=== PATIENT | male | born 1930 | race Caucasian/White ===

== ENCOUNTER 2019-11-28 15:24 | Inpatient (IN) | payer OTHER ==
--- NOTE | 2019-12-01 16:11 | R.PREADM ---
SCREENING DATE AND TIME 11/30/2019 10:09 (CDT) ANTICIPATED REHAB ADMISSION DATE 12/02/2019 REFERRING FACILITY Doctor Office REFERRAL DATE AND TIME 11/28/2019 03:38 (CDT) REFERRAL ROOM# Home HOSPITALIZED IN LAST 60 DAYS? YES Was in [facility] from 11/01 to 11/22 for PE, Valve Stenosis, Respiratory Failure, Pne umonia and Sepsis Previous Rehabilitation(s): No. 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 Maxi Linares M.D. MR# [id number] [id number] NAME ARTHUR PARKER ADDRESS [address] [place] [address] PHONE [facility] [id number] DATE OF 1930 AGE 89 SSN# [id number] GENDER male MARITAL STATUS RACE white PREF. LANGUAGE (IF NON-MONTSERRATIAN) Canadian ADMIT FROM 01 - Home (private home/apt. board/care, assisted living, long-term, transitional living) PRE-HOSPITAL LIVING SETTING 01 - Home (private home/apt. board/care, assisted living, long-term, transitional living) HOME TYPE AND DETAILS Type of home: single family house # of levels in the residence: 0 # of steps to enter the residence: 1 # of steps within the residence: 0 PRE-HOSPITAL LIVING WITH Family/Relatives FAMILY SUPPORT Yes PRIMARY FAMILY CONTACT NAME Kailyn Parker PRIMARY FAMILY CONTACT PHONE PRIMARY FAMILY CONTACT RELATIONSHIP IS PRIMARY FAMILY CONTACT AUTH. REP.? no 1ST EMERGENCY CONTACT Kailyn Parker 1ST CONTACT PHONE 1ST CONTACT RELATIONSHIP IS 1ST CONTACT AUTH. REP.? no PHONE 2ND CONTACT ON ADM.? no PATIENT EMPLOYMENT STATUS Retired (for age) PATIENT EMPLOYER No Employer PAYOR INFORMATION: 1ST PAYOR NAME [place] Medicare 1ST PAYOR PHONE 1ST PAYOR AUTHORIZATION# [id number] 1ST PAYOR UPDATE DUE 12/07/2019 1ST PAYOR INJURY/ILLNESS DUE TO ACCIDENT? No ANOTHER GREEN PARTY RESPONSIBLE? No PRIMARY REHAB/ACUTE DIAGNOSIS: Aortic Stenosis, Acute Respiratory Failure ONSET DATE 11/02/2019 REHAB IMPAIRMENT CATEGORY (MARLENA): 14 Cardiac does NOT meet 60% rule PRIMARY DIAGNOSIS-RELATED SURGERIES: Patient had 2 Thoracentesis while in hospital and an Aortic valve replacement. SUMMARY OF ACUTE HOSPITALIZATION: Pt. is a 89 yo Right-handed white male. On 11/02/2019 he was admitted to [facility] in the [facility] with diagnosis Aortic Stenosis, Acute Respi ratory Failure. His impairment category is Cardiac 09 - Cardiac Disorders (09). Pre-morbidly, Pt. was independent/mod-I in Transfers Control, Self-Care, and Locomotion; and he had g ood Balance, Safety Awareness, Social Cognition, Communication, and Sphincter Control. Currently, he has deficits of Transfers Control, Balance, Locomotion, Safety Awareness, Self-Care, an d Social Cognition. Pt. is now referred to [facility] for acute in-patient rehabilitation in order to maximize patient's functional independence in activities of daily living, strength, ROM, and mobi lity. Patient has realistic goal of being discharged at assistance level 6-[place] to reside at Home with Fam omar/Relatives. PAST MEDICAL HISTORY HTN CVA Aortic Stenosis Cardiogenic shock (R57.0) Squamous Cell Carcinoma of Lung PAST SURGICAL HISTORY: Bronchoscopy x 2 MEDICATION ALLERGIES: Plavix ENVIRONMENTAL ALLERGIES: None Known - Substance Allergies None Known - Other Allergies None Known CODE STATUS: Full code WEIGHT/HEIGHT/BMI: WEIGHT 210 lbs HEIGHT 5' 8" BMI 31.9 DIET: - Diet Type Regular - Diet - Solid Texture Regular - Diet - Liquid Texture Regular - Tube Feed N/A REVIEW OF SYSTEMS: - Gen Alert and awake Lying in bed No apparent distress Oriented to: person, time, and place - Vital Signs Vital signs stable, afebrile - CVS RRR VITAL SIGNS Vital signs stable, afebrile MEDICATIONS/TREATMENT: Other- See attached MAR (Medication Administration Record). CURRENT SPHINCTER CONTROL: Pre-hospital bladder status: unspecified Pre-hospital bowel status: unspecified CURRENT LOCOMOTION STATUS: distance walked 40 feet DETAILED CURRENT FUNCTIONAL STATUS: - Walking score based on distance walked: 1(<=50ft) QI SCORES: - Self-Care A. Eating 06-Independent B. Oral hygiene 10-Not attempted due to environmental limitations C. Toileting hygiene 04-Supervision or touching assistance E. Shower/bathe self 01-Dependent F. Upper body dressing 04-Supervision or touching assistance G. Lower body dressing 03-Partial/moderate assistance H. Putting on/taking off footwear 88-Not attempted due to medical condition or safety concerns - Mobility A. Roll left and right 04-Supervision or touching assistance B. Sit to lying 04-Supervision or touching assistance C. Lying to sitting on side of bed 04-Supervision or touching assistance D. Sit to stand 04-Supervision or touching assistance E. Chair/rnp-gp-yevfe transfer 04-Supervision or touching assistance F. Toilet transfer 04-Supervision or touching assistance G. Car transfer 88-Not attempted due to medical condition or safety concerns I. Walk 10 feet 04-Supervision or touching assistance J. Walk 50 feet with two turns 10-Not attempted due to environmental limitations K. Walk 150 feet 88-Not attempted due to medical condition or safety concerns L. Walking 10 feet on uneven surfaces 04-Supervision or touching assistance M. 1 step (curb) 88-Not attempted due to medical condition or safety concerns N. 4 steps 88-Not attempted due to medical condition or safety concerns O. 12 steps 88-Not attempted due to medical condition or safety concerns P. Picking up object 03-Partial/moderate assistance - Bladder and Bowel Bladder continence 1-Stress incontinence only Bowel continence 1-Occasionally incontinent - Endurance Good - Balance Good - Safety Awareness Good CURRENT FUNC. DEFICITS: Mobility and Self-Care HISTORY OF FALLS. HAS THE PATIENT HAD TWO OR MORE FALLS IN THE PAST YEAR OR ANY FALL WITH INJURY IN T HE PAST YEAR?: Yes PRIOR SURGERY. DID THE PATIENT HAVE MAJOR SURGERY DURING THE 100 DAYS PRIOR TO ADMISSION?: Yes THERAPY NOTES FROM ACUTE CARE: Attached.Hospital Clinicals.pdf INS Packet.pdf PT Eval.pdf SPECIAL NEEDS: - Safety Concerns Skin breakdown precautions needed due to skin breakdown risk PATIENT NEEDS ACTIVE AND ONGOING THERAPEUTIC INTERVENTION OF MULTIPLE THERAPY DISCIPLINES, INCLUDING: - Dietary and Nutrition Adequate Nutrition. Nutritional Education. Nutritional Supplements. PATIENT NEEDS CLOSE MEDICAL SUPERVISION BY A REHABILITATION PHYSICIAN FOR: Coordination of Treatment Team PATIENT REQUIRES 24X7 REHAB NURSING FOR MEDICAL AND FUNCTIONAL MGT. OF THE FOLLOWING DEFICITS: Disease Management Medication Management Patient/Family Education Providing Safe Environment PATIENT REQUIRES INTENSIVE, COORDINATED INTERDISCIPLINARY APPROACH TO REHAB: Arranging Home Equipment/Services Discharge Planning Family Intervention/Training Construction Tech/Case Management PATIENT REHAB POTENTIAL: Tyler PARKER is able and expected to receive 3 hours of individualized therapy daily on at least 5 of e very 7 days Tyler PARKER's prognosis for significant practical improvement within a reasonable period of time appea rs Good Expected level of measurable improvement will be of a practical value to Tyler PARKER's functional capa city or adaptations to impairments Has a viable Discharge Plan Medically appropriate; condition is sufficiently stable to participate in intensive rehab program DISCHARGE PLAN: - Estimated Length of Stay (days) 10. - Consensus on plan Discharge plan has been discussed with primary caregiver. Patient/Family is in agreement with the lily n. Primary caregiver is in agreement with the plan. - Patient/Family Goals Return home with assistance. - Planned Living Setting Upon Discharge Home, to live with Family/Relatives. RECOMMENDED CARE LEVEL: IRF RECOMMENDATION DETAILS: Recommended Admission to Comprehensive Rehabilitation Program to Increase Functional [place] SCREENER'S COMPLETENESS CONFIRMATION: - Screening Confirmation The patient data collection on this preadmission screening form is finished PHYSICIANS REVIEW AND ADMISSION DETERMINATION Admit - Based on my review of the Pre-Admission Screening results, in my medical judgment and experie nce, I concur with the findings and recommend admission to [facility], as this patient requires an IRF level of care. SIGNATURE PANEL: Shale Processing Technician - [electronically] signed by Kristyn Wiley RN on 12/01/2019 at 14:16 (CDT) Physician Reviewer - [electronically] signed by Dr. Maxi Linares M.D. on 12/01/2019 at 16:09 (CDT )
--- OUTSIDE RECORDS SUMMARY | 2019-12-02 11:12 | XMS REPORT | Clinical Summary ---
:1930 Author Organization [facility] Address [address] [place] [address] Care Team Providers Name Role Phone Arias Almanza DO Primary Care Provider Allergies Active Allergy Reactions Severity Noted Date Comments No Known Drug Allergies 03/18/2016 Medications Medication Sig Dispensed Refills Start Date End Date Status AVODART 0.5 mg daily. 0 04/20/2016 Acti ve capsule ramipril (ALTACE) daily. 0 03/07/2016 A ctive 10 MG capsule metoprolol TAKE 1 TABLET 90 tablet 3 06/22/2019 Acti ve succinate XL BY MOUTH (TOPROL-XL) 25 mg DAILY 24 hr tablet metoprolol TAKE 1 TABLET 90 tablet 3 06/19/2018 06/22/2019 Dis continued succinate XL BY MOUTH (TOPROL-XL) 25 mg DAILY 24 hr tablet Active Problems Problem Noted Date Nonrheumatic aortic (valve) stenosis 03/18/2016 Hypertensive heart disease without heart failure 03/18 Encounters Date Type Specialty Care Team Description 11/22/2019 Telephone Cardiology Winnie Camacho RN Return Call 06/22/2019 Refill Cardiology Sergio Ortiz MD Med Ref ill 12/20/2018 Office Visit Cardiology Jorge Hayden MD Nonrheumatic aortic (valve) stenosis (Pr imary Dx); Sergio Ortiz MD Hyperte nsive heart disease without heart failure; Chronic fatigue ; Aortic valve st enosis, etiology of cardiac valve disease unspecified; Bilateral carot id artery occlusion; 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 Last Filed Vital Signs Vital Sign Reading Time Taken Comments Blood Pressure 120/68 12/20/2018 2:26 PM CDT Pulse 69 12/20/2018 2:26 PM CDT Temperature - - Respiratory Rate - - Oxygen Saturation - - Inhaled Oxygen Concentration - - Weight 77 kg (169 lb 12.8 oz) 12/20/2018 2:26 PM CDT Height 172.7 cm (5' 8") 12/20/2018 2:26 PM CDT Body Mass Index 25.82 12/20/2018 2:26 PM CDT Plan of Treatment Health Maintenance Due Date Last Done Comments SHINGLES VACCINES (#1) 1982 65+ PNEUMOCOCCAL VACCINE (1 of 2 - PCV13) 1997 INFLUENZA VACCINE 01/05/2020 Results Not on fileafter 12/01/2018 Advance Directives For more information, please contact: [phone] Type Date Recorded Patient Counselor Camp Explanati on Advance Directives, Living Will and Medical Power of Agricultural Education Teacher
--- OUTSIDE RECORDS SUMMARY | 2019-12-02 11:18 | XMS REPORT | Clinical Summary ---
:1930 Author Organization [facility] Address [address] [place] [address] Care Team Providers Name Role Phone Arias Almanza DO Primary Care Provider Allergies Active Allergy Reactions Severity Noted Date Comments Clopidogrel Other (See Comments) 11/02/2019 Clots a nd bleeding per pt's Medications Medication Sig Dispensed Refills Start Date End Date Status AVODART 0.5 mg 0 10/31/2019 Acti ve capsule bumetanide (BUMEX) Take 1 tablet 30 tablet 1 11/23/20192020 Active 1 MG tablet (1 mg total) by mouth daily. clopidogreL Take 1 tablet 30 tablet 0 11/23/2019 01/10/2020 Ac tive (PLAVIX) 75 mg (75 mg total) tablet by mouth daily for 48 days. 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 03/18 Resolved Problems Problem Noted Date Resolved Date Acute respiratory failure with hypoxia 11/19/2019 0 11/19/2019 Cardiogenic shock 11/02/2019 11/19/2019 Encounters Date Type Specialty Care Team Description 11/26/2019 Telephone Cardiology Gabriel Streeter MD 11/26/2019 Telephone Cardiology Gabriel Streeter MD 11/23/2019 Orders Only Cardiology Gabriel Streeter, S/p TAVR (transcatheter aortic valve replacement), bioprosthetic (Primary Dx) 11/15/2019 Anesthesia Event Tate Pereira MD 11/15/2019 Surgery Alexander Munson MD TAVR / ROMARIO MCR - IP PROC ONLY 11/07/2019 Anesthesia Event Natalia Vaughan MD 11/07/2019 Anesthesia Event Roman Nguyen MD 11/07/2019 Surgery Luis Alberto Santiago, BRONCHOSCOP Y,ENDOBRO MD HAMEED ULTRASOU ND (EBUS) TRANSTRA CH/ TRANSBRONCH MARTY PLING 11/05/2019 Surgery Gabriel Streeter, R & L CATH / CORONARY ANGIOS (+/- LV) 11/03/2019 Travel 11/02/2019 - Hospital Encounter Cardiology Zenon Thompson c shock (HCC) (Primary Dx); 11/23/2019 MD Maureen Acute on chronic congestive heart failur e, unspecified heart failure type (HCC); Ciara Posadas Acute respir atory failure with hypoxia (HCC); MD Leigh Cardiogenic shock (HCC); Gabriel Streeter, Pneumonia of both lungs due to infectious organism, unspecified part of lung; Severe aortic stenosis; Tom Stokes MD Pneumonia of left upper lobe due to infe ctious organism; Mayela Field Shortness of breath; MD Malik Anxiety; Beverly Mcgill Goals of c are, counseling/discussion; MD Rosa Palliative care by specialist; Gross hematuria ; Squamous cell c arcinoma of left lung (HCC); Pleural effusio n 11/02/2019 Orders Only General Internal Medicine 11/02/2019 Outside Orders Lab Abelardo Paz 11/02/2019 Travel after 12/01/2018 Social History Tobacco Use Types Packs/Day Years Used Date Never Smoker Smokeless Tobacco: Never Used Alcohol Use Drinks/Week oz/Week Comments No Alcohol Habits Answer Date Recorded How often do you have a drink containing alcohol? Never 11/02/2019 How many drinks containing alcohol do you have on a typical Not asked day when you are drinking? How often do you have six or more drinks on one occasion? No t asked Sex Assigned at Date Recorded Not on file Job Start Date Occupation Industry Not on file Not on file Not on file Travel History Travel Start Travel End No recent travel history available. Last Filed Vital Signs Vital Sign Reading Time Taken Blood Pressure 109/53 11/23/2019 11:50 AM CDT Pulse 70 11/23/2019 11:50 AM CDT Temperature 36.6 C (97.9 F) 11/23/2019 11:50 AM CDT Respiratory Rate 17 11/23/2019 11:50 AM CDT Oxygen Saturation 99% 11/23/2019 11:50 AM CDT Inhaled Oxygen Concentration 21% 11/22/2019 8:55 PM CDT Weight 55.8 kg (123 lb) 11/23/2019 6:31 AM CDT Height 172.7 cm (5' 8") 11/03/2019 3:16 AM CDT Body Mass Index 18.7 11/23/2019 6:31 AM CDT Plan of Treatment Date Type Specialty Care Team Description 12/18/2019 Appointment Cardiology 12/18/2019 Clinical Support Cardiology Duyen Carver se, [employer] [address] [place], [place] [address] [phone] 12/18/2019 Office Visit Cardiology Gabriel Streeter MD [address], [facility] [address] [place], [place] [address] [phone] Health Maintenance Due Date Last Done Comments PNEUMOCOCCAL 65+ LOW/MEDIUM RISK (1 of 2 - PCV13) 1997 Medicare IPPE (WELCOME TO MEDICARE) 06/06/2019 INFLUENZA VACCINE (Season Ended) 2020 Implants Implanted Type Area Scheduling Manager Device Identifier Shelf Model / Expiration Serial / Date Lot Pacemkr Sgl Micra Transcath [id number] - [id number] PACEMAKER / Left: [employer]:CARD [id number] 01/17/2021 [id number] / Implanted: Qty: 1 on 11/15/2019 by Alexander Munson MD ICD Heart RHY:PACING SYS [id number] / CHAMBER DEVICE Valve Heart Nic 3 [id number] - [id number] Valves N/A: RANDHAWA LIFESCI 03/13/2021 [id number] / Implanted: Qty: 1 on 11/15/2019 by Alexander Munson MD Aorta [id number] / Procedures Procedure Name Priority Date/Time Associated Comments Diagnosis ARRYTHMIA IMPLANT 11/27/2019 8:21 Result s for this REPORT - SCAN AM CDT procedure are in the results section. RHYTHM STRIP - SCAN 11/27/2019 8:21 AM CDT CARDIAC CATH REPORT - 11/27/2019 8:20 SCAN AM CDT CARDIAC CATH REPORT - 11/27/2019 8:20 SCAN AM CDT UROLOGY REPORT - SCAN 11/27/2019 8:20 Re sults for this AM CDT procedure are i n the results section. PLATELET AGGREGATION: AP Routine 11/23/2019 4:50 Re sults for this FUNCTION SCREEN AM CDT procedure ar e in the results section. PHOSPHORUS Routine 11/23/2019 4:50 Results for this AM CDT procedure are i n the results section. MAGNESIUM Routine 11/23/2019 4:50 Results for this AM CDT procedure are i n the results section. BASIC METABOLIC PANEL Routine 11/23/2019 4:50 Re sults for this (7) AM CDT procedure are i n the results section. XR CHEST 1 VIEW Routine 11/22/2019 9:12 Results for this PORTABLE/BEDSIDE AM CDT procedure a re in the results section. CBC W/PLT COUNT & AUTO Routine 11/22/2019 4:23 R esults for this DIFFERENTIAL AM CDT procedure are i n the results section. PHOSPHORUS Routine 11/22/2019 4:23 Results for this AM CDT procedure are i n the results section. MAGNESIUM Routine 11/22/2019 4:23 Results for this AM CDT procedure are i n the results section. BASIC METABOLIC PANEL Routine 11/22/2019 4:23 Re sults for this (7) AM CDT procedure are i n the results section. CBC W/PLT COUNT & AUTO Routine 11/22/2019 4:23 R esults for this DIFFERENTIAL AM CDT procedure are i n the results section. ARRYTHMIA IMPLANT 11/21/2019 2:41 Result s for this REPORT - SCAN PM CDT procedure are in the results section. LIMITED 2D BELLA 11/21/2019 10:16 Results for this ECHOCARDIOGRAM AM CDT procedure are in the results section. XR CHEST 1 VIEW Routine 11/21/2019 8:40 Results for this PORTABLE/BEDSIDE AM CDT procedure a re in the results section. CBC W/PLT COUNT & AUTO Routine 11/21/2019 4:57 R esults for this DIFFERENTIAL AM CDT procedure are i n the results section. PHOSPHORUS Routine 11/21/2019 4:57 Results for this AM CDT procedure are i n the results section. MAGNESIUM Routine 11/21/2019 4:57 Results for this AM CDT procedure are i n the results section. BASIC METABOLIC PANEL Routine 11/21/2019 4:57 Re sults for this (7) AM CDT procedure are i n the results section. CBC W/PLT COUNT & AUTO Routine 11/21/2019 4:57 R esults for this DIFFERENTIAL AM CDT procedure are i n the results section. CBC W/PLT COUNT & AUTO Routine 11/20/2019 4:33 R esults for this DIFFERENTIAL AM CDT procedure are i n the results section. PHOSPHORUS Routine 11/20/2019 4:33 Results for this AM CDT procedure are i n the results section. MAGNESIUM Routine 11/20/2019 4:33 Results for this AM CDT procedure are i n the results section. BASIC METABOLIC PANEL Routine 11/20/2019 4:33 Re sults for this (7) AM CDT procedure are i n the results section. CBC W/PLT COUNT & AUTO Routine 11/20/2019 4:33 R esults for this DIFFERENTIAL AM CDT procedure are i n the results section. XR CHEST 1 VIEW Routine 11/20/2019 1:46 Results for this PORTABLE/BEDSIDE AM CDT procedure a re in the results section. CBC W/PLT COUNT & AUTO Routine 11/19/2019 3:17 R esults for this DIFFERENTIAL AM CDT procedure are i n the results section. PHOSPHORUS Routine 11/19/2019 3:17 Results for this AM CDT procedure are i n the results section. MAGNESIUM Routine 11/19/2019 3:17 Results for this AM CDT procedure are i n the results section. BASIC METABOLIC PANEL Routine 11/19/2019 3:17 Re sults for this (7) AM CDT procedure are i n the results section. CBC W/PLT COUNT & AUTO Routine 11/19/2019 3:17 R esults for this DIFFERENTIAL AM CDT procedure are i n the results section. XR CHEST 1 VIEW Routine 11/19/2019 2:12 Results for this PORTABLE/BEDSIDE AM CDT procedure a re in the results section. HEMOGLOBIN AND Routine 11/18/2019 10:07 Results f or this HEMATOCRIT PM CDT procedure are i n the results section. CBC W/PLT COUNT & AUTO Routine 11/18/2019 4:11 R esults for this DIFFERENTIAL AM CDT procedure are i n the results section. PHOSPHORUS Routine 11/18/2019 4:11 Results for this AM CDT procedure are i n the results section. MAGNESIUM Routine 11/18/2019 4:11 Results for this AM CDT procedure are i n the results section. BASIC METABOLIC PANEL Routine 11/18/2019 4:11 Re sults for this (7) AM CDT procedure are i n the results section. CBC W/PLT COUNT & AUTO Routine 11/18/2019 4:11 R esults for this DIFFERENTIAL AM CDT procedure are i n the results section. XR CHEST 1 VIEW Routine 11/18/2019 1:48 Results for this PORTABLE/BEDSIDE AM CDT procedure a re in the results section. MAGNESIUM Routine 11/17/2019 6:00 Results for this PM CDT procedure are i n the results section. BASIC METABOLIC PANEL Routine 11/17/2019 6:00 Re sults for this (7) PM CDT procedure are i n the results section. HEMOGLOBIN AND Routine 11/17/2019 6:00 Results f or this HEMATOCRIT PM CDT procedure are i n the results section. PLASMA FREE HEMOGLOBIN Routine 11/17/2019 12:13 R esults for this PM CDT procedure are i n the results section. HEMOGLOBIN AND Routine 11/17/2019 12:13 Results f or this HEMATOCRIT PM CDT procedure are i n the results section. XR CHEST 1 VIEW Routine 11/17/2019 4:43 Results for this PORTABLE/BEDSIDE AM CDT procedure a re in the results section. CBC W/PLT COUNT & AUTO Routine 11/17/2019 3:22 R esults for this DIFFERENTIAL AM CDT procedure are i n the results section. PHOSPHORUS Routine 11/17/2019 3:22 Results for this AM CDT procedure are i n the results section. MAGNESIUM Routine 11/17/2019 3:22 Results for this AM CDT procedure are i n the results section. BASIC METABOLIC PANEL Routine 11/17/2019 3:22 Re sults for this (7) AM CDT procedure are i n the results section. CBC W/PLT COUNT & AUTO Routine 11/17/2019 3:22 R esults for this DIFFERENTIAL AM CDT procedure are i n the results section. TRANSFUSION SERVICE 11/16/2019 6:02 REPORT - SCAN PM CDT XR CHEST 1 VIEW STAT 11/16/2019 5:46 Results for this PORTABLE/BEDSIDE PM CDT procedure a re in the results section. CYTOLOGY AP Routine 11/16/2019 5:02 Results for this PM CDT procedure are i n the results section. US THORACENTESIS STAT 11/16/2019 5:00 Results for this PM CDT procedure are i n the results section. RHYTHM STRIP - SCAN 11/16/2019 3:40 PM CDT PROTHROMBIN TIME/INR STAT 11/16/2019 11:45 Res ults for this AM CDT procedure are i n the results section. PT/APTT STAT 11/16/2019 11:45 Results for this AM CDT procedure are i n the results section. 2D ECHO W/ DOPPLER STAT 11/16/2019 10:23 Resul ts for this (CW/PW/COLOR) AM CDT procedure are in the results section. RETICULOCYTE COUNT Routine 11/16/2019 9:39 Resul ts for this AM CDT procedure are i n the results section. HEMOGLOBIN AND STAT 11/16/2019 9:39 Results f or this HEMATOCRIT AM CDT procedure are i n the results section. HAPTOGLOBIN Routine 11/16/2019 9:35 Results for this AM CDT procedure are i n the results section. BLOOD GAS, ARTERIAL Routine 11/16/2019 4:30 Resu lts for this AM CDT procedure are i n the results section. XR CHEST 1 VIEW Routine 11/16/2019 4:14 Results for this PORTABLE/BEDSIDE AM CDT procedure a re in the results section. CBC W/PLT COUNT & AUTO Routine 11/16/2019 2:44 R esults for this DIFFERENTIAL AM CDT procedure are i n the results section. LACTATE DEHYDROGENASE Add-On 11/16/2019 2:44 Re sults for this (LDH) AM CDT procedure are i n the results section. PHOSPHORUS Routine 11/16/2019 2:44 Results for this AM CDT procedure are i n the results section. MAGNESIUM Routine 11/16/2019 2:44 Results for this AM CDT procedure are i n the results section. BASIC METABOLIC PANEL Routine 11/16/2019 2:44 Re sults for this (7) AM CDT procedure are i n the results section. CBC W/PLT COUNT & AUTO Routine 11/16/2019 2:44 R esults for this DIFFERENTIAL AM CDT procedure are i n the results section. BLOOD GAS, ARTERIAL Routine 11/16/2019 12:18 Resu lts for this AM CDT procedure are i n the results section. BLOOD GAS, ARTERIAL Routine 11/15/2019 10:12 Resu lts for this PM CDT procedure are i n the results section. COMPREHENSIVE METABOLIC Routine 11/15/2019 4:47 Results for this PANEL PM CDT procedure are i n the results section. MAGNESIUM Routine 11/15/2019 4:47 Results for this PM CDT procedure are i n the results section. XR CHEST 1 VIEW Routine 11/15/2019 4:46 Results for this PORTABLE/BEDSIDE PM CDT procedure a re in the results section. BLOOD GAS, ARTERIAL Routine 11/15/2019 4:45 Resu lts for this PM CDT procedure are i n the results section. CBC W/PLT COUNT & AUTO Routine 11/15/2019 4:43 R esults for this DIFFERENTIAL PM CDT procedure are i n the results section. CBC W/PLT COUNT & AUTO Routine 11/15/2019 4:43 R esults for this DIFFERENTIAL PM CDT procedure are i n the results section. PREPARE RBC STAT 11/15/2019 4:14 Results for this PM CDT procedure are i n the results section. POCT-ACT Routine 11/15/2019 1:54 Results for this PM CDT procedure are i n the results section. HGB/HCT (H&H) - STAT STAT 11/15/2019 1:28 Res ults for this LAB PM CDT procedure are i n the results section. GLUCOSE-STAT LAB STAT 11/15/2019 1:28 Results for this PM CDT procedure are i n the results section. POTASSIUM-STAT LAB STAT 11/15/2019 1:28 Resul ts for this PM CDT procedure are i n the results section. SODIUM NA-STAT LAB STAT 11/15/2019 1:28 Resul ts for this PM CDT procedure are i n the results section. BLOOD GAS, ARTERIAL STAT 11/15/2019 1:28 Resu lts for this PM CDT procedure are i n the results section. CALCIUM, IONIZED STAT 11/15/2019 1:28 Results for this PM CDT procedure are i n the results section. RRL CRITICAL LABS STAT 11/15/2019 1:28 Result s for this (ABG,NA,K,H&H,GLUCOSE) PM CDT proce dure are in the results section. POCT-GLUCOSE METER Routine 11/15/2019 11:59 Resul ts for this AM CDT procedure are i n the results section. TRANSESOPHAGEAL ECHO Routine 11/15/2019 10:49 Res ults for this AM CDT procedure are i n the results section. 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 Iveth QUACH case TAVR / ROMARIO MCR - IP 11/15/2019 9:37 AM CDT Nonrheu matic aortic valve PROC ONLY stenosis Case Notes 6S1-04 /ANESTHESIA / MAKAYLA / 1 [id number] Special Needs Start after TAVR Dr. Iveth QUACH case XR CHEST 1 VIEW Routine 11/15/2019 3:58 AM Resul ts for this PORTABLE/BEDSIDE CDT procedure a re in the results section. CBC W/PLT COUNT & AUTO Routine 11/15/2019 3:26 AM Results for this DIFFERENTIAL CDT procedure are i n the results section. APTT Routine 11/15/2019 3:26 AM Results for this CDT procedure are i n the results section. PHOSPHORUS Routine 11/15/2019 3:26 AM Results for this CDT procedure are i n the results section. MAGNESIUM Routine 11/15/2019 3:26 AM Results for this CDT procedure are i n the results section. BASIC METABOLIC PANEL (7) Routine 11/15/2019 3:26 AM Results for this CDT procedure are i n the results section. CBC W/PLT COUNT & AUTO Routine 11/15/2019 3:26 AM Results for this DIFFERENTIAL CDT procedure are i n the results section. XR CHEST 1 VIEW STAT 11/14/2019 10:58 PM Resul ts for this PORTABLE/BEDSIDE CDT procedure a re in the results section. CBC W/PLT COUNT & AUTO Routine 11/14/2019 10:49 PM Results for this DIFFERENTIAL CDT procedure are i n the results section. CBC W/PLT COUNT & AUTO Routine 11/14/2019 10:49 PM Results for this DIFFERENTIAL CDT procedure are i n the results section. TRANSFUSION SERVICE REPORT 11/14/2019 6:11 PM - SCAN CDT CBC W/PLT COUNT & AUTO Routine 11/14/2019 5:29 AM Results for this DIFFERENTIAL CDT procedure are i n the results section. APTT Routine 11/14/2019 5:29 AM Results for this CDT procedure are i n the results section. PHOSPHORUS Routine 11/14/2019 5:29 AM Results for this CDT procedure are i n the results section. MAGNESIUM Routine 11/14/2019 5:29 AM Results for this CDT procedure are i n the results section. BASIC METABOLIC PANEL (7) Routine 11/14/2019 5:29 AM Results for this CDT procedure are i n the results section. CBC W/PLT COUNT & AUTO Routine 11/14/2019 5:29 AM Results for this DIFFERENTIAL CDT procedure are i n the results section. XR CHEST 1 VIEW Routine 11/14/2019 4:22 AM Resul ts for this PORTABLE/BEDSIDE CDT procedure a re in the results section. APTT Routine 11/14/2019 12:51 AM Results for this CDT procedure are i n the results section. APTT Routine 11/13/2019 5:23 PM Results for this CDT procedure are i n the results section. BLOOD CULTURE Routine 11/13/2019 4:08 PM Results for this CDT procedure are i n the results section. BLOOD CULTURE Routine 11/13/2019 4:08 PM Results for this CDT procedure are i n the results section. URINALYSIS W/ REFLEX URINE Routine 11/13/2019 12:05 PM Results for this CULTURE CDT procedure are i n the results section. TYPE AND SCREEN, AUTOMATED Routine 11/13/2019 11:04 AM Results for this CDT procedure are i n the results section. APTT Routine 11/13/2019 11:04 AM Results for this CDT procedure are i n the results section. CBC W/PLT COUNT & AUTO Routine 11/13/2019 4:34 AM Results for this DIFFERENTIAL CDT procedure are i n the results section. APTT Routine 11/13/2019 4:34 AM Results for this CDT procedure are i n the results section. CALCIUM, IONIZED Routine 11/13/2019 4:34 AM Resu lts for this CDT procedure are i n the results section. HEPATIC FUNCTION PANEL Routine 11/13/2019 4:34 AM Results for this CDT procedure are i n the results section. PHOSPHORUS Routine 11/13/2019 4:34 AM Results for this CDT procedure are i n the results section. MAGNESIUM Routine 11/13/2019 4:34 AM Results for this CDT procedure are i n the results section. BASIC METABOLIC PANEL (7) Routine 11/13/2019 4:34 AM Results for this CDT procedure are i n the results section. CBC W/PLT COUNT & AUTO Routine 11/13/2019 4:34 AM Results for this DIFFERENTIAL CDT procedure are i n the results section. APTT Routine 11/12/2019 8:00 PM Results for this CDT procedure are i n the results section. BASIC METABOLIC PANEL (7) Routine 11/12/2019 4:56 PM Results for this CDT procedure are i n the results section. APTT Routine 11/12/2019 12:39 PM Results for this CDT procedure are i n the results section. CBC W/PLT COUNT & AUTO Routine 11/12/2019 5:06 AM Results for this DIFFERENTIAL CDT procedure are i n the results section. HEPATIC FUNCTION PANEL Add-On 11/12/2019 5:06 AM Results for this CDT procedure are i n the results section. APTT Routine 11/12/2019 5:06 AM Results for this CDT procedure are i n the results section. PHOSPHORUS Routine 11/12/2019 5:06 AM Results for this CDT procedure are i n the results section. MAGNESIUM Routine 11/12/2019 5:06 AM Results for this CDT procedure are i n the results section. BASIC METABOLIC PANEL (7) Routine 11/12/2019 5:06 AM Results for this CDT procedure are i n the results section. CBC W/PLT COUNT & AUTO Routine 11/12/2019 5:06 AM Results for this DIFFERENTIAL CDT procedure are i n the results section. APTT Routine 11/11/2019 9:02 PM Results for this CDT procedure are i n the results section. CYTOLOGY AP Routine 11/11/2019 5:22 PM Results for this CDT procedure are i n the results section. APTT Routine 11/11/2019 1:09 PM Results for this CDT procedure are i n the results section. BODY FLUID CELL COUNT WITH Routine 11/11/2019 1:09 PM Results for this DIFFERENTIAL CDT procedure are i n the results section. XR CHEST 1 VIEW STAT 11/11/2019 11:40 AM Resul ts for this PORTABLE/BEDSIDE CDT procedure a re in the results section. US THORACENTESIS Routine 11/11/2019 11:27 AM Resu lts for this CDT procedure are i n the results section. XR CHEST 1 VIEW STAT 11/11/2019 8:51 AM Resul ts for this PORTABLE/BEDSIDE CDT procedure a re in the results section. CBC W/PLT COUNT & AUTO Routine 11/11/2019 5:11 AM Results for this DIFFERENTIAL CDT procedure are i n the results section. PHOSPHORUS Routine 11/11/2019 5:11 AM Results for this CDT procedure are i n the results section. MAGNESIUM Routine 11/11/2019 5:11 AM Results for this CDT procedure are i n the results section. BASIC METABOLIC PANEL (7) Routine 11/11/2019 5:11 AM Results for this CDT procedure are i n the results section. CBC W/PLT COUNT & AUTO Routine 11/11/2019 5:11 AM Results for this DIFFERENTIAL CDT procedure are i n the results section. POCT-GLUCOSE METER Routine 11/10/2019 11:52 AM Re sults for this CDT procedure are i n the results section. MAGNESIUM Routine 11/10/2019 10:34 AM Results for this CDT procedure are i n the results section. POTASSIUM Routine 11/10/2019 10:34 AM Results for this CDT procedure are i n the results section. POCT-GLUCOSE METER Routine 11/10/2019 7:46 AM Re sults for this CDT procedure are i n the results section. POCT-GLUCOSE METER Routine 11/10/2019 7:29 AM Re sults for this CDT procedure are i n the results section. CBC W/PLT COUNT & AUTO Routine 11/10/2019 3:51 AM Results for this DIFFERENTIAL CDT procedure are i n the results section. PROTHROMBIN TIME/INR Routine 11/10/2019 3:51 AM Results for this CDT procedure are i n the results section. PHOSPHORUS Routine 11/10/2019 3:51 AM Results for this CDT procedure are i n the results section. MAGNESIUM Routine 11/10/2019 3:51 AM Results for this CDT procedure are i n the results section. BASIC METABOLIC PANEL (7) Routine 11/10/2019 3:51 AM Results for this CDT procedure are i n the results section. CBC W/PLT COUNT & AUTO Routine 11/10/2019 3:51 AM Results for this DIFFERENTIAL CDT procedure are i n the results section. POCT-GLUCOSE METER Routine 11/09/2019 10:19 PM Re sults for this CDT procedure are i n the results section. INTRAOPERATIVE PATH REPORT 11/09/2019 3:11 PM - SCAN CDT POCT-GLUCOSE METER Routine 11/09/2019 11:38 AM Re sults for this CDT procedure are i n the results section. XR CHEST 1 VIEW STAT 11/09/2019 11:16 AM Resul ts for this PORTABLE/BEDSIDE CDT procedure a re in the results section. CBC W/PLT COUNT & AUTO Routine 11/09/2019 4:51 AM Results for this DIFFERENTIAL CDT procedure are i n the results section. PHOSPHORUS Routine 11/09/2019 4:51 AM Results for this CDT procedure are i n the results section. MAGNESIUM Routine 11/09/2019 4:51 AM Results for this CDT procedure are i n the results section. BASIC METABOLIC PANEL (7) Routine 11/09/2019 4:51 AM Results for this CDT procedure are i n the results section. CBC W/PLT COUNT & AUTO Routine 11/09/2019 4:51 AM Results for this DIFFERENTIAL CDT procedure are i n the results section. POCT-GLUCOSE METER Routine 11/08/2019 10:05 PM Re sults for this CDT procedure are i n the results section. LACTIC ACID, VENOUS Routine 11/08/2019 9:46 PM R esults for this CDT procedure are i n the results section. OXYGEN SATURATION, Routine 11/08/2019 9:46 PM Re sults for this MEASURED CDT procedure are i n the results section. TRANSFUSION SERVICE REPORT 11/08/2019 5:51 PM - SCAN CDT POCT-GLUCOSE METER Routine 11/08/2019 5:20 PM Re sults for this CDT procedure are i n the results section. PULMONARY FUNCTION - SCAN 11/08/2019 2:30 PM Results for this CDT procedure are i n the results section. POCT-GLUCOSE METER Routine 11/08/2019 11:16 AM Re sults for this CDT procedure are i n the results section. POCT-GLUCOSE METER Routine 11/08/2019 7:36 AM Re sults for this CDT procedure are i n the results section. CBC W/PLT COUNT & AUTO Routine 11/08/2019 3:24 AM Results for this DIFFERENTIAL CDT procedure are i n the results section. PHOSPHORUS Routine 11/08/2019 3:24 AM Results for this CDT procedure are i n the results section. MAGNESIUM Routine 11/08/2019 3:24 AM Results for this CDT procedure are i n the results section. BASIC METABOLIC PANEL (7) Routine 11/08/2019 3:24 AM Results for this CDT procedure are i n the results section. CBC W/PLT COUNT & AUTO Routine 11/08/2019 3:24 AM Results for this DIFFERENTIAL CDT procedure are i n the results section. REPORT OF PROCEDURE - 11/07/2019 4:40 PM ENDOSCOPY URL CDT EBUS FNA REQUEST Routine 11/07/2019 4:11 PM Resu lts for this CDT procedure are i n the results section. EBUS FNA REQUEST Routine 11/07/2019 4:11 PM Resu lts for this CDT procedure are i n the results section. FINE NEEDLE ASPIRATE BY AP Routine 11/07/2019 4:11 PM Results for this EBUS CDT procedure are i n the results section. FINE NEEDLE ASPIRATE BY AP Routine 11/07/2019 4:11 PM Results for this EBUS CDT procedure are i n the results section. EBUS FNA REQUEST Routine 11/07/2019 4:04 PM Resu lts for this CDT procedure are i n the results section. FINE NEEDLE ASPIRATE BY AP Routine 11/07/2019 4:04 PM Results for this EBUS CDT procedure are i n the results section. TISSUE EXAM AP Routine 11/07/2019 3:42 PM Results for this CDT procedure are i n the results section. BRONCHOSCOPY,BRONCHIAL 11/07/2019 2:00 PM Lung mass ALVEOLAR LAVAGE CDT Special Needs (C-ARM) BRONCHOSCOPY,ENDOBRONCHIAL ULTRASOUND (EBUS) 0 2:00 PM CDT Lung mass TRANSTRACH/ TRANSBRONCH SAMPLING Special Needs (C-ARM) ABORH, MANUAL STAT 11/07/2019 8:19 Results fo r this AM CDT procedure are i n the results section. CBC W/PLT COUNT & AUTO STAT 11/07/2019 5:26 R esults for this DIFFERENTIAL AM CDT procedure are i n the results section. TYPE AND SCREEN, Routine 11/07/2019 5:26 Results for this AUTOMATED AM CDT procedure are i n the results section. MAGNESIUM Add-On 11/07/2019 5:26 Results for this AM CDT procedure are i n the results section. APTT STAT 11/07/2019 5:26 Results for this AM CDT procedure are i n the results section. PROTHROMBIN TIME/INR STAT 11/07/2019 5:26 Res ults for this AM CDT procedure are i n the results section. CBC W/PLT COUNT & AUTO STAT 11/07/2019 5:26 R esults for this DIFFERENTIAL AM CDT procedure are i n the results section. COMPREHENSIVE STAT 11/07/2019 5:26 Results fo r this METABOLIC PANEL AM CDT procedure ar e in the results section. CBC (HEMOGRAM ONLY) Routine 11/07/2019 5:26 Resu lts for this AM CDT procedure are i n the results section. XR CHEST 1 VIEW STAT 11/06/2019 5:38 Results for this PORTABLE/BEDSIDE PM CDT procedure a re in the results section. POCT-GLUCOSE METER Routine 11/06/2019 5:15 Resul ts for this PM CDT procedure are i n the results section. CT CHEST WITHOUT IV STAT 11/06/2019 4:11 Resu lts for this CONTRAST PM CDT procedure are i n the results section. SPIROMETRY Routine 11/06/2019 2:45 Results for this PM CDT procedure are i n the results section. MAGNESIUM STAT 11/06/2019 1:23 Results for this PM CDT procedure are i n the results section. BASIC METABOLIC PANEL STAT 11/06/2019 1:23 Re sults for this (7) PM CDT procedure are i n the results section. POCT-GLUCOSE METER Routine 11/06/2019 11:38 Resul ts for this AM CDT procedure are i n the results section. POCT-GLUCOSE METER Routine 11/06/2019 7:29 Resul ts for this AM CDT procedure are i n the results section. MAGNESIUM STAT 11/06/2019 3:40 Results for this AM CDT procedure are i n the results section. BASIC METABOLIC PANEL STAT 11/06/2019 3:40 Re sults for this (7) AM CDT procedure are i n the results section. CBC (HEMOGRAM ONLY) Routine 11/06/2019 3:40 Resu lts for this AM CDT procedure are i n the results section. VANCOMYCIN LEVEL, Timed 11/06/2019 3:40 Result s for this TROUGH AM CDT procedure are i n the results section. XR CHEST 1 VIEW Routine 11/06/2019 3:39 Results for this PORTABLE/BEDSIDE AM CDT procedure a re in the results section. CT BRAIN WITHOUT IV Routine 11/05/2019 11:18 Resu lts for this CONTRAST PM CDT procedure are i n the results section. POCT-GLUCOSE METER Routine 11/05/2019 6:24 Resul ts for this PM CDT procedure are i n the results section. REPORT OF PROCEDURE - 11/05/2019 3:50 ENDOSCOPY SCAN PM CDT R & L CATH / CORONARY 11/05/2019 1:30 Aortic valve ANGIOS (+/- LV) PM CDT stenosis, etiology of cardiac valve disease unspecified CAROTID DOPPLER Routine 11/05/2019 12:38 Results for this BILATERAL PM CDT procedure are i n the results section. MAGNESIUM STAT 11/05/2019 12:03 Results for this PM CDT procedure are i n the results section. BASIC METABOLIC PANEL STAT 11/05/2019 12:03 Re sults for this (7) PM CDT procedure are i n the results section. POCT-GLUCOSE METER Routine 11/05/2019 11:32 Resul ts for this AM CDT procedure are i n the results section. POCT-GLUCOSE METER Routine 11/05/2019 7:14 Resul ts for this AM CDT procedure are i n the results section. MAGNESIUM STAT 11/05/2019 4:16 Results for this AM CDT procedure are i n the results section. BASIC METABOLIC PANEL STAT 11/05/2019 4:16 Re sults for this (7) AM CDT procedure are i n the results section. PT/APTT Routine 11/05/2019 4:16 Results for this AM CDT procedure are i n the results section. CBC (HEMOGRAM ONLY) Routine 11/05/2019 4:16 Resu lts for this AM CDT procedure are i n the results section. MAGNESIUM STAT 11/04/2019 8:50 Results for this PM CDT procedure are i n the results section. BASIC METABOLIC PANEL STAT 11/04/2019 8:50 Re sults for this (7) PM CDT procedure are i n the results section. POCT-GLUCOSE METER Routine 11/04/2019 4:56 Resul ts for this PM CDT procedure are i n the results section. MAGNESIUM STAT 11/04/2019 1:36 Results for this PM CDT procedure are i n the results section. BASIC METABOLIC PANEL STAT 11/04/2019 1:36 Re sults for this (7) PM CDT procedure are i n the results section. POCT-GLUCOSE METER Routine 11/04/2019 11:55 Resul ts for this AM CDT procedure are i n the results section. POCT-GLUCOSE METER Routine 11/04/2019 7:30 Resul ts for this AM CDT procedure are i n the results section. CBC (HEMOGRAM ONLY) Routine 11/04/2019 2:39 Resu lts for this AM CDT procedure are i n the results section. BASIC METABOLIC PANEL STAT 11/04/2019 2:39 Re sults for this (7) AM CDT procedure are i n the results section. MAGNESIUM STAT 11/04/2019 2:39 Results for this AM CDT procedure are i n the results section. XR CHEST 1 VIEW Routine 11/04/2019 1:03 Results for this PORTABLE/BEDSIDE AM CDT procedure a re in the results section. POCT-GLUCOSE METER Routine 11/03/2019 10:24 Resul ts for this PM CDT procedure are i n the results section. LACTATE DEHYDROGENASE Routine 11/03/2019 7:12 Re sults for this (LD), PLEURAL FLUID PM CDT procedur e are in the results section. CYTOLOGY AP Routine 11/03/2019 4:44 Results for this PM CDT procedure are i n the results section. FUNGUS CULTURE + Routine 11/03/2019 4:44 SMEAR PM CDT GLUCOSE PLEURAL FLUID Routine 11/03/2019 4:44 Re sults for this PM CDT procedure are i n the results section. BODY FLUID CULTURE + Routine 11/03/2019 4:44 Res ults for this GRAM STAIN PM CDT procedure are i n the results section. PROTEIN, TOTAL, Routine 11/03/2019 4:43 Results for this PLEURAL FLUID PM CDT procedure are in the results section. XR CHEST 1 VIEW STAT 11/03/2019 4:40 Results for this PORTABLE/BEDSIDE PM CDT procedure a re in the results section. US THORACENTESIS Routine 11/03/2019 4:35 Results for this PM CDT procedure are i n the results section. BLOOD CULTURE STAT 11/03/2019 12:31 Results fo r this PM CDT procedure are i n the results section. MRSA SCREEN Routine 11/03/2019 12:14 Results for this PM CDT procedure are i n the results section. ASPERGILLUS Routine 11/03/2019 12:10 Results for this GALACTOMANNAN ANTIGEN PM CDT proced ure are in the results section. FUNGAL PANEL Routine 11/03/2019 12:09 Results for this PM CDT procedure are i n the results section. MISCELLANEOUS LAB Routine 11/03/2019 12:07 Result s for this ORDER PM CDT procedure are i n the results section. BLOOD CULTURE STAT 11/03/2019 12:07 Results fo r this PM CDT procedure are i n the results section. POCT-GLUCOSE METER Routine 11/03/2019 10:33 Resul ts for this AM CDT procedure are i n the results section. STREP PNEUMONIAE Routine 11/03/2019 9:58 Results for this ANTIGEN AM CDT procedure are i n the results section. LEGIONELLA URINE Routine 11/03/2019 9:57 Results for this ANTIGEN AM CDT procedure are i n the results section. HISTOPLASMA ANTIGEN, Routine 11/03/2019 9:15 Res ults for this URINE AM CDT procedure are i n the results section. T4, FREE Routine 11/03/2019 8:46 Results for this AM CDT procedure are i n the results section. HEMOGLOBIN A1C Routine 11/03/2019 8:46 Results f or this AM CDT procedure are i n the results section. PROCALCITONIN STAT 11/03/2019 8:46 Results fo r this AM CDT procedure are i n the results section. TSH/FREE T4 IF Routine 11/03/2019 8:46 Results f or this INDICATED AM CDT procedure are i n the results section. CORTISOL Routine 11/03/2019 8:46 Results for this AM CDT procedure are i n the results section. XR CHEST 1 VIEW STAT 11/03/2019 8:11 Results for this PORTABLE/BEDSIDE AM CDT procedure a re in the results section. LACTIC ACID, VENOUS STAT 11/03/2019 7:46 Resu lts for this AM CDT procedure are i n the results section. HEPATIC FUNCTION PANEL STAT 11/03/2019 7:45 R esults for this AM CDT procedure are i n the results section. BASIC METABOLIC PANEL STAT 11/03/2019 7:45 Re sults for this (7) AM CDT procedure are i n the results section. CBC (HEMOGRAM ONLY) STAT 11/03/2019 6:11 Resu lts for this AM CDT procedure are i n the results section. BLOOD GAS, ARTERIAL STAT 11/03/2019 1:27 Resu lts for this AM CDT procedure are i n the results section. TROPONIN I STAT 11/03/2019 1:24 Results for this AM CDT procedure are i n the results section. VENOUS DOPPLER LEGS STAT 11/03/2019 1:04 Resu lts for this BILATERAL AM CDT procedure are i n the results section. CTA CHEST STAT 11/03/2019 12:30 Results for this AM CDT procedure are i n the results section. CTA ABDOMEN & PELVIS STAT 11/03/2019 12:30 Res ults for this AM CDT procedure are i n the results section. TROPONIN I STAT 11/02/2019 11:45 Results for this PM CDT procedure are i n the results section. ED ECG INTERPRETATION Routine 11/02/2019 11:37 Re sults for this PM CDT procedure are i n the results section. CRITICAL CARE Routine 11/02/2019 11:37 Results fo r this PM CDT procedure are i n the results section. 2D ECHO W/ DOPPLER STAT 11/02/2019 9:23 Resul ts for this (CW/PW/COLOR) PM CDT procedure are in the results section. URINALYSIS W/ REFLEX STAT 11/02/2019 8:56 Res ults for this URINE CULTURE PM CDT procedure are in the results section. BLOOD GAS, ARTERIAL STAT 11/02/2019 8:56 Resu lts for this PM CDT procedure are i n the results section. SARS-COV2/RT-PCR ([facility] STAT 11/02/2019 7:49 R esults for this & REF LABS) PM CDT procedure are i n the results section. (CELLAVISION MANUAL Routine 11/02/2019 7:45 Resu lts for this DIFF) PM CDT procedure are i n the results section. CBC W/PLT COUNT & AUTO STAT 11/02/2019 7:45 R esults for this DIFFERENTIAL PM CDT procedure are i n the results section. APTT STAT 11/02/2019 7:45 Results for this PM CDT procedure are i n the results section. APTT STAT 11/02/2019 7:45 Results for this PM CDT procedure are i n the results section. LACTIC ACID, VENOUS STAT 11/02/2019 7:45 Resu lts for this PM CDT procedure are i n the results section. B-TYPE NATRIURETIC STAT 11/02/2019 7:45 Resul ts for this FACTOR (BNP) PM CDT procedure are i n the results section. HEPATIC FUNCTION PANEL STAT 11/02/2019 7:45 R esults for this PM CDT procedure are i n the results section. PT/APTT STAT 11/02/2019 7:45 Results for this PM CDT procedure are i n the results section. CBC W/PLT COUNT & AUTO STAT 11/02/2019 7:45 R esults for this DIFFERENTIAL PM CDT procedure are i n the results section. BASIC METABOLIC PANEL STAT 11/02/2019 7:45 Re sults for this (7) PM CDT procedure are i n the results section. TROPONIN I STAT 11/02/2019 7:45 Results for this PM CDT procedure are i n the results section. XR CHEST 1 VIEW STAT 11/02/2019 7:33 Results for this PORTABLE/BEDSIDE PM CDT procedure a re in the results section. RESPIRATORY PANEL [facility] STAT 11/02/2019 7:24 R esults for this PM CDT procedure are i n the results section. ECG 12-LEAD STAT 11/02/2019 7:05 Results for this PM CDT procedure are i n the results section. after 12/01/2018 Results ARRYTHMIA IMPLANT REPORT - SCAN (11/27/2019 8:21 AM CDT)Only the most recent of 2 resultswithin the time period is included. Narrative Performed At This result has an attachment that is no t available. RHYTHM STRIP - SCAN (11/27/2019 8:21 AM CDT)Only the most recent of2 results within the time period is included. Narrative Performed At This result has an attachment that is no t available. CARDIAC CATH REPORT - SCAN (11/27/2019 8:20 AM CDT) Narrative Performed At This result has an attachment that is no t available. CARDIAC CATH REPORT - SCAN (11/27/2019 8:20 AM CDT) Narrative Performed At This result has an attachment that is no t available. UROLOGY REPORT - SCAN (11/27/2019 8:20 AM CDT) Narrative Performed At This result has an attachment that is no t available. Platelet Aggregation: Function Screen (11/23/2019 4:50 AM CDT) Pathologist: Abdirashid Montes M.D. [facility] (electonic signature) [facility] Platelets 198 150 - 450 K/CU [facility] ADP 71 62 - 100 % [facility] Platelet Rich Plasma 268 200 - 300 k/cu [facility] Plt. Function Screen Normal aggregation [facility] Interpretation results with ADP. No [facility] evidence of platelet dysfunction or P2Y12 inhibitor effect. Specimen Blood Narrative Performed At Platelet Function Screen results may be [facility] falsely low with platelet counts <75,000/cu mm. Gate Mortiser Operator ID - [id number] Performing Organization Address City/State/Zipcode Phone Number [address] [address] CENTER Phosphorus (11/23/2019 4:50 AM CDT)Only the most recent of16 resultswithin the time period is included. Phosphorus 3.2 2.3 - 4.7 mg/dL [facility] Specimen Blood Narrative Performed At Gate Mortiser Operator ID - RUFUS M [facility] MED ICAL CENTER Performing Organization Address City/State/Zipcode Phone Number [address] [address] CENTER Magnesium (11/23/2019 4:50 AM CDT)Only the most recent of27 resultswithin the time period is included. Magnesium 2.1 1.6 - 2.6 mg/dL [facility] Specimen Blood Narrative Performed At Gate Mortiser Operator ID - RUFUS M [facility] Performing Organization Address [facility]/Zipcode Phone Number [facility] [address] [place] [address] [place] Basic Metabolic Panel (11/23/2019 4:50 AM CDT)Only the most recent of27 results within the time period is included. Sodium 134 (L) 136 - 145 meq/L [facility] Potassium 3.4 (L) 3.5 - 5.1 meq/L [facility] Chloride 96 (L) 98 - 107 meq/L [facility] CO2 31 (H) 22 - 29 meq/L [facility] BUN 25 (H) 7 - 21 mg/dL [facility] Creatinine 0.92 0.57 - 1.25 mg/dL [facility] Glucose 104 70 - 105 mg/dL [facility] Calcium 8.3 (L) 8.4 - 10.2 mg/dL [facility] EGFR 78Comment: ESTIMATED GFR IS mL/min/1.73 sq m [facility] NOT ACCURATE CREATININE [facility] CLEARANCE IN PREDICTING GLOMERULAR FILTRATION RATE. ESTIMATED GFR IS NOT APPLICABLE FOR DIALYSIS PATIENTS. Specimen Blood Narrative Performed At Gate Mortiser Operator ID - RUFUS Gregory [facility] Performing Organization Address [facility]/Zipcode Phone Number [facility] [address] [place], [place] [phone] [place] XR chest 1 view portable / bedside (11/22/2019 9:12 AM CDT)Only the most recent of21 resultswithin the time period is included. Specimen Narrative Performed At FINAL REPORT [facility] CLINICAL HISTORY: RLL Carcinoma, frequen t pleural effusion. TECHNIQUE: 1 view of the chest. COMPARISON: 11/21/2019 IMPRESSION: The right PICC line is unchanged. Right mid and lower lung pleural parenchymal opacity appears increased in prominence. The left lung remains well-aerated. The cardiomediasti nal silhouette is magnified by technique. Signed: Abdullahi Penn MD Report Verified Date/Time:11/22/2019 11:14:15 Reading Location: [facility] Work[facility] y Reading Room Procedure Note Interface, External Ris In - 11/22/2019 11:16 AM CDT FINAL REPORT CLINICAL HISTORY: RLL Carcinoma, frequen t pleural effusion. TECHNIQUE: 1 view of the chest. COMPARISON: 11/21/2019 IMPRESSION: The right PICC line is unchanged. Right mid and lower lung pleural parenchymal opacity appears increased in prominence. The left lung remains well-aerated. The cardiomediasti nal silhouette is magnified by technique. Signed: Abdullahi Penn MD Report Verified Date/Time: 11/22/2019 1 1:14:15 Reading Location: [facility] Radiol y Reading Room Performing Organization Address City/State/Zipcode Phone Number [facility] CBC with platelet count + automated diff (11/22/2019 4:23 AM CDT)Only the most recent of19 resultswithin the time period is included. WBC 14.1 (H) 3.5 - 10.5 K/L [facility] RBC 3.65 (L) 4.63 - 6.08 M/L [facility] Hemoglobin 10.4 (L) 13.7 - 17.5 GM/DL [facility] Hematocrit 32.7 (L) 40.1 - 51.0 % [facility] MCV 89.6 79.0 - 92.2 fL [facility] MCH 28.5 25.7 - 32.2 pg [facility] MCHC 31.8 (L) 32.3 - 36.5 GM/DL [facility] RDW 13.7 11.6 - 14.4 % [facility] Platelets 214 150 - 450 K/CU MM [facility] MPV 9.7 9.4 - 12.4 fL [facility] nRBC 0 0 - 0 /100 WBC [facility] % Neutros 76 % [facility] % Lymphs 10 % [facility] % Monos 11 % [facility] % Eos 3 % [facility] % Baso 1 % [facility] # Neutros 10.70 (H) 1.78 - 5.38 K/L [facility] # Lymphs 1.34 1.32 - 3.57 K/L [facility] # Monos 1.48 (H) 0.30 - 0.82 K/L [facility] # Eos 0.37 0.04 - 0.54 K/L [facility] # Baso 0.09 (H) 0.01 - 0.08 K/L [facility] Immature 1 0 - 1 % [facility] Granulocytes-Relative MEDICAL CE NTER Specimen Blood Performing Organization Address City/State/Zipcode Phone Number [facility] [address] [place] [address] CENTER Limited 2D Echocardiogram (11/21/2019 10:16 AM CDT) Ejection Fraction [facility] ECHO HEAR TLAB [facility]CKESSON CPACS Specimen Narrative Performed At Transthoracic Echocardiography Report (T TE) 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 Clinical History HGB 10.6 HCT 33.1 % CHF HTN TAVR R& L CATH CORONARY ANGIO Contrast Medium: Definity. Height: 68.5 inches Weight: 68.04 kg (150 lbs) BSA: 1.82 m^2 BMI: 22.48 kg/m^2 HR: 70 bpm BP: 98/53 mmHg Summary 1. The left ventricle is chamber size (by vol index) is normal. Mild septal hypertrophy is present.All of the LV segments are mildly hypokinetic. LVEF by Munson's method of disk assessment is mildly reduced (40-44%). LA size is normal (16-34 ml/m 2). 2. The right ventricular chamber size and systolic function are within normal limits. RA size is normal. Estimated peak systolic PA pressure is 20-25 mmHg (normal range). 3. 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 Prosthetic AoV regurgitaton is trivial. Previous Study Compared to the previous study the current study was done off inotropes with mildly reduced LVEF. Signature Findings Technical Quality: Technically adequate exam. Left Ventricle LV endocardium is adequately visualized with IV ul trasound enhancing agent. Th e left ventricle is chamber size (by vol index) is normal (male - LVED vol - 34-74ml/m2). M ild se ptal hypertrophy is present. All of the LV se gments are mildly hypokinetic. Global LV systolic fu nction mildly reduced. LVEF by Munson's method of disk assessment is mildly reduced (40-44 %) . Left AtriumLA size is normal (16-34 ml/m2) . Right VentricleThe right ventricular chamber size and systolic fu nction are within normal limits. Right Atrium RA size is normal. Aortic Valve A percutaneous (TAVR) biologic AoV prosthesis is vi sualized. Prosthetic AoV regurgitaton is trivial . Mitral Valve Mild MV leaflet thickening. Trace mitral re gurgitation. Tricuspid ValveTV structure is normal. Tr woo tricuspid regurgitation. Es timated peak systolic PA pressure is 20- 25 mmHg (n ormal range) . Pulmonic Valve PV is not visualized. AortaAortic root size (SInus of Valsalva diameter) i s in determinate (not well seen) . PericardiumNo pericardial effusion is visualized. IVC/SVC/PA/PV/PleuralThe estimated RA pressure by IVC dynamics 0-5mmHg . Chambers/Structures Left Atrium LA Volume: 35.66 ml LA Area: 13.53 cm^2 LA Vol. 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 Clinical History HGB 10.6 HCT 33.1 % CHF HTN TAVR R& L CATH CORONARY ANGIO Contrast Medium: Definity. Height: 68.5 inches Weight: 68.04 kg (15 0 lbs) BSA: 1.82 m^2 BMI: 22.48 kg/m^2 HR: 70 bpm BP: 98/53 mmHg Summary 1. The left ventricle is chamber size ( by vol index) is normal. Mild septal hypertrophy is present.All of th e LV segments are mildly hypokinetic. LVEF by Munson's method o f disk assessment is mildly reduced (40-44%). LA size is normal (16-34 ml/m 2). 2. The right ventricular chamber size a nd systolic function are within normal limits. RA size is normal. Estim ated peak systolic PA pressure is 20-25 mmHg (normal range). 3. A percutaneous (TAVR) biologic AoV p rosthesis is visualized. Prosthetic AoV regurgitaton is trivial. Previous Study Compared to the previous study the curr ent study was done off inotropes with mildly reduced LVEF. Signature Findings Technical Quality: Technically adequate exam. Left Ventricle LV endocardium i s adequately visualized with IV ultrasound enhan cing agent. The left ventric le is chamber size (by vol index) is normal (male - LVED vol - 34-74ml/m2). Mild septal hypertrop hy is present. All of the LV segments are mil dly hypokinetic. Global LV systolic function mildly reduced. LVEF by Munson's method of disk assessme nt is mildly reduced (40-44%) . Left Atrium LA size is meghan l (16-34 ml/m2) . Right Ventricle The right ventri cular chamber size and systolic function are wit hin normal limits. Right Atrium RA size is meghan l. Aortic Valve A percutaneous ( TAVR) biologic AoV prosthesis is visualized. Pros thetic AoV regurgitaton is trivial . Mitral Valve Mild MV leaflet thickening. Trace mitral regurgitation. Tricuspid Valve TV structure is normal. Trace tricuspid regurgitation. Estimated peak s ystolic PA pressure is 20-25 mmHg (normal range) . Pulmonic Valve PV is not visual ized. Aorta Aortic root size (SInus of Valsalva diameter) is indeterminate (n ot well seen) . Pericardium No pericardial e ffusion is visualized. IVC/SVC/PA/PV/Pleural The estimated RA pressure by IVC dynamics 0-5mmHg . Chambers/Structures Left Atrium LA Volume: 35.66 ml LA Area: 13.53 cm^2 LA Vol. Index: 20 ml/m^2 Left Ventricle LVIDd: 5.4 cm LVIDs: 4.33 cm LV Septum Diastolic: 1.24 cm LV PW Diastolic: 1.17 cm LV FS: 19.8 % LVEDV Munson's:119.68 ml LVESV Munson's:59.36 ml LVEDVI: 66 ml/m^2 LVEF Munson's: 50.4 % LVESVI: 33 ml/m^2 Doppler/Quantitative Measurements Tricuspid Valve TR Velocity: 2.23 m/s TR Gradient: 19.88 mmHg Performing Organization Address City/State/Zipcode Phone Number [facility]ART[facility] Hemoglobin and hematocrit (11/18/2019 10:07 PM CDT)Only the most recent of4 resultswithin the time period is included. Hemoglobin 10.1 (L) 13.7 - 17.5 GM/DL [facility] Hematocrit 31.7 (L) 40.1 - 51.0 % [facility] Specimen Blood Narrative Performed At Gate Mortiser Operator ID - [id number] [facility] Performing Organization Address City/State/Zipcode Phone Number [facility] [address] [place] [address] [place] Plasma free hemoglobin (11/17/2019 12:13 PM CDT) Hgb, Plasma 40.0 (H) 0.0 - 30.0 mg/dl [facility] Specimen Blood Performing Organization Address City/State/Zipcode Phone Number [facility] [address] [place] [address] [place] TRANSFUSION SERVICE REPORT - SCAN (11/16/2019 6:02 PM CDT)Only the most recent of3 resultswithin the time period is included. Narrative Performed At This result has an attachment that is no t available. Cytology (11/16/2019 5:02 PM CDT)Only the most recent of3 resultswithin the time period is included. Case Report Medical Cytology Report Case: [id number] [facility] Authorizing Provider:Yoly Calderon NPCollected: 11/16/2019 05:02 PM [facility] Ordering Location: [place] [address] ccuReceived:11/19/2019 11:07 AM Pathologist: Tate Barksdale MD Specimen:Pleural, Right DIAGNOSIS PLEURAL, RIGHT, FLUID (CYTOSPINS AND CELL BLOCK) : [facility] - NEGATIVE FOR MALIGNANCY [facility] - Reactive mesothelial cells present Signing Pathologist Direct Phone Line: CPT Code(s) 02476, [address] 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 SPECIMEN SOURCE PLEURAL, RIGHT FLUID [facility] ER GROSS DESCRIPTION 1100 mls bri fluid; 4 cytospins, cell block [facility] Collected: [id number] [facility] Received: [id number] STATEMENT OF ADEQUACY Satisfactory [facility] Gross assessment was [facility] performed at [place], Department of [facility] Pathology, [address] [place] [address], [place] [address], Technical component was [facility] performed at [place], Department of [facility] Pathology, [address] [place] [phone], Professional component was [facility] performed at [place], Department of [facility] Pathology, [address] [place] [phone], Specimen Fine Needle Aspirate Narrative Performed At This result has an attachment that is no t available. Performing Organization Address City/State/Zipcode Phone Number [address] [phone] [place] US thoracentesis (11/16/2019 5:00 PM CDT)Only the most recent of3 resultswithin the time period is included. Specimen Narrative Performed At FINAL REPORT [facility] Exam:Ultrasound guided thoracentesis Clinical History:Right-sided Pleural Effusion Electronic Controls Repairer Supervisor: Viviane Hager PA-C Supervising Physician: Maureen Fan MD Consent:Benefits and risks were expl ained to the patient who gave consent to the procedure. Complication:None Immediate Procedure:The patient was placed in sitting position. The right posterior chest was prepped and draped i n usual sterile fashion. 2% lidocaine was used as local anesthetic. Under ultrasound guidance, a thoracentesis catheter was inserted into the pleural cavity. Approximately 1100 cc of clear yellow pl eural fluid was aspirated. The catheter was removed. The specimen w as sent to the laboratory for further analysis. The patient tolerated the procedure well without any adverse reaction. A STAT chest x-ray was ordered. The patient left the department in stable condition. Impression:Ultrasound guided right s ided thoracentesis. Signed: Maureen Fan MD Report Verified Date/Time:11/23/2019 17:34:12 Reading Location: [facility] P006J [facility] [place] Reading Room Procedure Note Interface, External Ris In - 11/23/2019 5:36 PM CDT FINAL REPORT Exam: Ultrasound guided thoracentesis Clinical History: Right-sided Pleural E ffusion Electronic Controls Repairer Supervisor: Viviane Hager PA-C Supervising Physician: Maureen Fan MD Consent: Benefits and risks were explai sophia to the patient who gave consent to the procedure. Complication: None Immediate Procedure: The patient was placed in si tting position. The right posterior chest was prepped and draped i n usual sterile fashion. 2% lidocaine was used as local anesthetic. Under ultrasound guidance, a thoracentesis catheter was inserted into the pleural cavity. Approximately 1100 cc of clear yellow pl eural fluid was aspirated. The catheter was removed. The specimen w as sent to the laboratory for further analysis. The patient tolerated the procedure well without any adverse reaction. A STAT chest x-ray was ordered. The patient left the department in stable condition. Impression: Ultrasound guided right leonard ed thoracentesis. Signed: Maureen Fan MD Report Verified Date/Time: 11/23/2019 1 7:34:12 Reading Location: [facility] P006J [facility] [place] Reading Room Performing Organization Address City/[facility] Phone Number GE RIS PT/aPTT (11/16/2019 11:45 AM CDT)Only the most recent of3 resultswithin the time period is included. Protime 15.7 (H) 11.9 - 14.2 seconds [facility] INR 1.3 <=5.9 [facility] PTT 37.0 (H) 22.5 - 36.0 seconds [facility] Specimen Blood Narrative Performed At Effective 11/01/2018: PT Reference Range [facility] Change New: 11.9-14.2Previous: 11.7-14.7 RECOMMENDED COUMADIN/WARFARIN INR THERAPY RANGES STANDARD DOSE: 2.0-3.0Includes: PROPHYLAXIS for venous thrombosis, systemic embolization; TREATMENT for venous thrombosis and/or pulmonary embolus. HIGH RISK: Target INR is 2.5-3.5 for patients wiht mechanical heart valves. Performing Organization Address City/State/Zipcode Phone Number [address] [address] CENTER Prothrombin time/INR (11/16/2019 11:45 AM CDT)Only the most recent of3 results within the time period is included. Protime 15.7 (H) 11.9 - 14.2 seconds [facility] INR 1.3 <=5.9 [facility] Specimen Blood Narrative Performed At Effective 11/01/2018: PT Reference Range [facility] Change New: 11.9-14.2Previous: 11.7-14.7 RECOMMENDED COUMADIN/WARFARIN INR THERAPY RANGES STANDARD DOSE: 2.0-3.0Includes: PROPHYLAXIS for venous thrombosis, systemic embolization; TREATMENT for venous thrombosis and/or pulmonary embolus. HIGH RISK: Target INR is 2.5-3.5 for patients wiht mechanical heart valves. Performing Organization Address City/State/Zipcode Phone Number [address] [address] [place] 2D Echo W/Doppler(CW/PW/Color) (11/16/2019 10:23 AM CDT) Ejection Fraction [facility] ECHO HEAR TLAB [facility] Specimen Narrative Performed At Transthoracic Echocardiography Report (T TE) 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 Clinical History CHF;HTN;R&L CATH/CA 11/05/19;ROMARIO 11/15/19(SAPIEN3 26 mm) Contrast Medium: Definity. Height: 68.5 inches Weight: 68.04 kg (150 lbs) BSA: 1.82 m^2 BMI: 22.48 kg/m^2 HR: 74 bpm BP: 101/58 mmHg Summary 1. The left ventricle is chamber size (by vol index) is normal. Normal LV wall thickness. All of the LV segments contract normally. Estimated LVEF by qualitative assessment is lower limits of normal (50-55%). LA size is severely enlarged (>48 ml/m2) . 2. Normal right ventricle structure and function. RA cavity size is mildly enlarged. Estimated peak systolic PA pressure is 45-50 mmHg (mild pulmonary hypertension) . 3. A percutaneous (TAVR) biologic AoV prosthesis is visualized and appears well-seated with normal function by Doppler. AoV dimensionless obstructive index (DOI)) is 0.62 .Peak Grad; 27 mmHg ,Mean Grad; 12.5 mmHg, SALIMA 1.99 cm2. Prosthetic AoV regurgitaton is mil d. 4. Mild to moderate mitral regurgitation. Kbdf-ur-bvlhcggt tricuspid regurgitation Previous Study In comparison with the prior exam 11/02/2019 the following changes are noted: S/P TAVR . Signature Findings Left Ventricle LV endocardium is adequately visualized with IV ul trasound enhancing agent. The left ventr icle is ch bri size (by vol index) is normal (mal e - LVED vo l - 34-74ml/m2). Normal LV wall thicknes s. All of th e LV segments contract normally . Global LV sy stolic function lower limits of normal . Es timated LVEF by qualitative assessment i s lower li mits of normal (50-55%) . Degree of romero tolic dy sfunction (LAP assessment) is inconclusi ve due to ar rhythmia . Left AtriumLA size is severely enlarged (>48 ml/m2) . Right VentricleNormal right ventricle structure and function. Right Atrium RA cavity size is mildly enlarged . Aortic Valve A percutaneous (TAVR) biologic AoV prosthesis is vi sualized . Th e prosthetic AoV appears well-seated wit h normal fu nction by Doppler. Ao V dimensionless obstructive index (DOI)) is 0.62 .P eak Grad; 27 mmHg ,Mean Grad; 12.5 mmHg, SALIMA 1.99 cm 2. Pr osthetic AoV regurgitaton is mild . Pr osthetic AR locations(s) are paravalvula r at ap proximately 11 to 1 o''clock. . Mitral Valve Mild MV leaflet thickening. Mild to moderate mitral re gurgitation. Tricuspid BjhwjCldy-ci-uacanrgx tricuspid regurgitation. Es timated peak systolic PA pressure is 45- 50 mmHg (m ild pulmonary hypertension) . Pulmonic Valve PV is not well visualized. AortaAortic root size (SInus of Valsalva diameter) i s no rmal . PericardiumNo evidence of pericardial effusion. IVC/SVC/PA/PV/PleuralThe estimated RA pressure by IVC dynamics 16-20mmHg . Chambers/Structures Left Atrium LA Dimension: 3.57 cm LA Volume: 95.8 ml LA Vol. Index: 53 ml/m^2 Left Ventricle LVIDd: 5.32 cm LVEDV:117.97 ml LV Septum Diastolic: 0.93 cm LV PW Diastolic: 1.06 cm LVEDV Munson's:87.09 ml LVESV Munson's:42.93 ml LVEF Munson's: 50.7 % LVEDVI: 48 ml/m^2 LVESVI: 24 ml/m^2 LVOT Diameter: 2.03 cm Right Atrium RA Area: 18 .87 cm^2 Aorta Ao Root S of Ojhnathon.: 3.65 cm Doppler/Quantitative Measurements Aortic Valve Peak Velocity: 2.62 m/sMean Velocity: 1.61 m/s Peak Gradient: 27.47 mmHgMean Gradient: 12.58 mmHg AV Area (continuity): 1.99 cm^2 AV VTI: 36.05 cm AV DVI: 0.62 LVOT Peak Velocity: 1.38 m/s Peak Gradient: 7.6 mmHg Mean Velocity: 0.76 m/s Mean Gradient: 3.02 mmHg LVOT Diameter: 2.03 cmLVOT VTI: 22.21 cm LVOT Area: 3.24 cm^2LVOT SV:71.85 ml LVOT CO: 5.32 l/min LVOT CI: 2.92 l/min/m^2 Procedure Note Interface, External Ris In - 11/16/2019 1:41 PM CDT Transthoracic Echocardiography Report (TTE) Demographics Patient Name MAYRA, Date of Study 11/16/2019 ARTHUR Gender Male Visit Number [id number] Race Unknown Room [facility] 6104 Number Date of 1930 Referri von Physician ALEXANDER MUNSON Age 89 year(s) Sonogra angela Prabhakar RDCS Parole Agent Patrick Wilson Interpr doni Streeter MD Physici an Procedure Type of Study TTE procedure:2DECHO W DOPPLE R(CW/PW/COLOR) (STAT) Indications:S/P TAVR and Acute Chest Muna n/ Suspected CAD. Clinical History CHF;HTN;R&L CATH/CA 11/05/19;ROMARIO 11/15/19( SAPIEN3 26 mm) Contrast Medium: Definity. Height: 68.5 inches Weight: 68.04 kg (15 0 lbs) BSA: 1.82 m^2 BMI: 22.48 kg/m^2 HR: 74 bpm BP: 101/58 mmHg Summary 1. The left ventricle is chamber size ( by vol index) is normal. Normal LV wall thickness. All of the LV segments contract normally. Estimated LVEF by qualitative assessment is lower limi ts of normal (50-55%). LA size is severely enlarged (>48 ml/m2) . 2. Normal right ventricle structure and function. RA cavity size is mildly enlarged. Estimated peak systolic PA pr essure is 45-50 mmHg (mild pulmonary hypertension) . 3. A percutaneous (TAVR) biologic AoV p rosthesis is visualized and appears well-seated with normal function by Dop pler. AoV dimensionless obstructive index (DOI)) is 0.62 .Peak Grad; 27 mmH g ,Mean Grad; 12.5 mmHg, SALIMA 1.99 cm2. Prosthetic AoV regurgitaton is mil d. 4. Mild to moderate mitral regurgitatio n. Opgu-hx-vyvufops tricuspid regurgitation Previous Study In comparison with the prior exam 2019 the following changes are noted: S/P TAVR . Signature Findings Left Ventricle LV endocardium i s adequately visualized with IV ultrasound enhan cing agent. The left ventricle is chamber size (by vol index) is normal (male - LVED vol - 34-74ml/m2 ). Normal LV wall thickness. All of the LV segments contract normally . Global LV systolic functio n lower limits of normal . Estimated LVEF b y qualitative assessment is lower limits of normal (50-55%) . Degree of diastolic dysfunction (LAP assessment) is inconclusive due to arrhythmia . Left Atrium LA size is sever ramirez enlarged (>48 ml/m2) . Right Ventricle Normal right seda tricle structure and function. Right Atrium RA cavity size i s mildly enlarged . Aortic Valve A percutaneous ( TAVR) biologic AoV prosthesis is visualized . The prosthetic A oV appears well-seated with normal function by Dopp ler. AoV dimensionles s obstructive index (DOI)) is 0.62 .Peak Grad; 27 m mHg ,Mean Grad; 12.5 mmHg, SALIMA 1.99 cm2. Prosthetic AoV r egurgitaton is mild . Prosthetic AR lo cations(s) are paravalvular at approximately 11 to 1 o''clock. . Mitral Valve Mild MV leaflet thickening. Mild to moderate mitral regurgitation. Tricuspid Valve Blex-pq-veziosyd tricuspid regurgitation. Estimated peak s ystolic PA pressure is 45-50 mmHg (mild pulmonary hypertension) . Pulmonic Valve PV is not well v isualized. Aorta Aortic root size (SInus of Valsalva diameter) is normal . Pericardium No evidence of p ericardial effusion. IVC/SVC/PA/PV/Pleural The estimated RA pressure by IVC dynamics 16-20mmHg . Chambers/Structures Left Atrium LA Dimension: 3.57 cm LA Volume: 95.8 ml LA Vol. Index: 53 ml/m^2 Left Ventricle LVIDd: 5.32 cm LVEDV:117.97 ml LV Septum Diastolic: 0.93 cm LV PW Diastolic: 1.06 cm LVEDV Munson's:87.09 ml LVESV Munson's:42.93 ml LVEF Munson's: 50.7 % LVEDVI: 48 ml/m^2 LVESVI: 24 ml/m^2 LVOT Diameter: 2.03 cm Right Atrium RA Area: 18.87 cm^2 Aorta Ao Root S of Johnathon.: 3.65 cm Doppler/Quantitative Measurements Aortic Valve Peak Velocity: 2.62 m/s Mean Velocity: 1.61 m/s Peak Gradient: 27.47 mmHg Mean Gradient: 12.58 mmHg AV Area (continuity): 1.99 cm^2 AV VTI: 36.05 cm AV DVI: 0.62 LVOT Peak Velocity: 1.38 m/s Pea k Gradient: 7.6 mmHg Mean Velocity: 0.76 m/s Jazmine n Gradient: 3.02 mmHg LVOT Diameter: 2.03 cm LVO T VTI: 22.21 cm LVOT Area: 3.24 cm^2 LVO T SV:71.85 ml LVOT CO: 5.32 l/min LVO T CI: 2.92 l/min/m^2 Performing Organization Address City/[facility]/Zipcode Phone Number [facility] HEART[facility] Reticulocyte count (11/16/2019 9:39 AM CDT) % Retic 1.6 0.5 - 1.8 % [facility] Specimen Blood Narrative Performed At Gate Mortiser Operator ID - [id number] [facility] CENTER Performing Organization Address City/[facility]/Zipcode Phone Number [facility] MEDICAL [address] [place] [address] CENTER Haptoglobin (11/16/2019 9:35 AM CDT) Haptoglobin 226 14 - 258 mg/dL [facility] Specimen Blood Narrative Performed At Gate Mortiser Operator ID - [id number] [facility] Performing Organization Address [facility]/Zipcode Phone Number [facility] [address] [place] [address] [place] Blood gas, arterial (11/16/2019 4:30 AM CDT)Only the most recent of7 results within the time period is included. pH, Arterial 7.53 (H) 7.35 - 7.45 [facility] pCO2, Arterial 33 (L) 35 - 45 mmHg [facility] pO2, Arterial 180 (H) 80 - 90 mmHg [facility] O2 Sat, Arterial 99.4 (H) 96.0 - 97.0 % [facility] HCO3, Arterial 27 21 - 29 mmol/L [facility] Base Excess, Arterial 3.9 (H) -2.0 - 3.0 mmol/L [facility] Patient Temperature 37.0 C [facility] FIO2 40.0 % [facility] Specimen Blood, Arterial Performing Organization Address [facility] Phone Number [address] [address] [place] Lactate dehydrogenase (LDH) (11/16/2019 2:44 AM CDT) LDH 191 125 - 220 U/L [facility] Specimen Blood Narrative Performed At Gate Mortiser Operator ID - ROSIANG [facility] Performing Organization Address City/[facility]/Zipcode Phone Number [address] [address] CENTER Comprehensive metabolic panel (11/15/2019 4:47 PM CDT)Only the most recent of2 resultswithin the time period is included. Protein, Total 5.5 (L)Comment: Specimen 6.0 - 8.3 gm/dL [facility] slightly hemolyzed [facility] Albumin 2.4 (L)Comment: Specimen 3.5 - 5.0 g/dL [facility] slightly hemolyzed [facility] Alkaline Phosphatase 54 40 - 150 U/L [facility] Total Bilirubin 0.8Comment: Specimen 0.2 - 1.2 mg/dL [facility] slightly hemolyzed [facility] Sodium 138 136 - 145 meq/L [facility] Potassium 3.5Comment: Specimen 3.5 - 5.1 meq/L [facility] slightly hemolyzed [facility] Chloride 103 98 - 107 meq/L [facility] CO2 25 22 - 29 meq/L [facility] BUN 17 7 - 21 mg/dL [facility] Creatinine 1.03Comment: Specimen 0.57 - 1.25 mg/dL [facility] slightly hemolyzed [facility] Glucose 164 (H) 70 - 105 mg/dL [facility] Calcium 8.4 8.4 - 10.2 mg/dL [facility] AST 19Comment: Specimen 5 - 34 U/L [facility] slightly hemolyzed [facility] ALT 14Comment: Specimen 6 - 55 U/L [facility] slightly hemolyzed [facility] EGFR 68Comment: ESTIMATED GFR mL/min/1.73 sq m [facility] IS NOT ACCURATE [facility] CREATININE CLEARANCE IN PREDICTING GLOMERULAR FILTRATION RATE. ESTIMATED GFR IS NOT APPLICABLE FOR DIALYSIS PATIENTS. Specimen Blood Narrative Performed At Gate Mortiser Operator ID - BS [facility] CENTER Performing Organization Address City/State/Zipcode Phone Number [facility] [address] [place] [address] CENTER Prepare RBC (11/15/2019 4:14 PM CDT) CROSSMATCH COMPATIBLE SAFETRACE TX Unit ABO A Pos SAFETRACE TX UNIT NUMBER [id number] SAFETRACE TX Status RETURNED FROM ISSUE SAFETRACE TX Blood Bank Product RED BLOOD CELLS SAFETRACE TX PRODUCT CODE [id number] SAFETRACE TX CROSSMATCH COMPATIBLE SAFETRACE TX Unit ABO A Pos SAFETRACE TX UNIT NUMBER [id number] SAFETRACE TX Status RETURNED FROM ISSUE SAFETRACE TX Blood Bank Product RED BLOOD CELLS SAFETRACE TX PRODUCT CODE [id number] SAFETRACE TX Performing Organization Address [facility] Phone Number SAFETRACE TX POC ACTIVATED CLOTTING TIME (11/15/2019 1:54 PM CDT) Activated Clotting Time 252Comment: : 74-137 sec [facility] seconds, Baseline: TESTED [facility] AT [address], [address]: Gate Mortiser Operator/Hospital Clerk ID = [id number] for JOLYNN KRAFT Specimen Blood Performing Organization Address [facility] Phone Number [address] [address] CENTER Potassium-Stat Lab (11/15/2019 1:28 PM CDT) Potassium 3.6 3.6 - 5.5 meq/L [facility] Specimen Blood, Arterial Performing Organization Address [facility] Phone Number [address] [phone] CENTER Sodium Na-Stat Lab (11/15/2019 1:28 PM CDT) Sodium 133 (L) 136 - 145 meq/L [facility] Specimen Blood, Arterial Performing Organization Address [facility] Phone Number [address] [address] CENTER Glucose-Stat Lab (11/15/2019 1:28 PM CDT) Glucose 113 (H) 70 - 110 mg/dL [facility] Specimen Blood, Arterial Performing Organization Address City/[facility]/Zipcode Phone Number [address] [address] [place] HGB/HCT (H&H)-Stat Lab (11/15/2019 1:28 PM CDT) Hemoglobin 11.4 (L) 13.0 - 16.8 g/dL [facility] Hematocrit 34.0 (L) 40.0 - 50.0 % [facility] Specimen Blood, Arterial Performing Organization Address [facility] [facility] Phone Number [address] [address] [place] Calcium, Ionized (11/15/2019 1:28 PM CDT)Only the most recent of2 resultswithin the time period is included. Calcium, Ion 1.10 (L) 1.12 - 1.27 mmol/L [facility] pH, Blood 7.52 [facility] Specimen Blood Performing Organization Address [facility] Phone Number [address] [address] [place] POC-Glucose meter (11/15/2019 11:59 AM CDT)Only the most recent of21 results within the time period is included. POC-Glucose Meter 116 (H)Comment: : TESTED 70 - 110 mg/dL [facility] AT [address], [address]: Gate Mortiser Operator/Hospital Clerk ID = [id number] for DEBORAH SANDRA Specimen Blood Performing Organization Address [facility] Phone Number [address] [address] [place] Transesophageal echo (11/15/2019 10:49 AM CDT) Ejection Fraction [facility] ECHO HEAR TLAB [facility] Specimen Narrative Performed At Transesophageal Echocardiography Report (MAKAYLA) 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 Clinical History CHF,HTN Height: 68.5 inches Weight: 68.04 kg (150 lbs) BSA: 1.82 m^2 BMI: 22.48 kg/m^2 HR: 86 bpm BP: 95/59 mmHg Summary Procedural MAKAYLA to guide TAVR procedure Pre procedural MAKAYLA 1. Severe AoV cusp calcification. A trace of aortic regurgitation. Severe aortic stenosis. 2. The left ventricle is chamber size is moderately enlarged. All of the LV segments are moderately hypokinetic . Global LV systolic function moderately reduced . 3. The right ventricular chamber size and systolic function are within normal limits. Intra and Post procedural MAKAYLA 1. Successfully deployed Edward nic valve with residual mild AR. 2. Improved LV systolic function with stable RV systolic function. 3. No pericardial effusion. Signature Findings Rhythm/BP Interventional MAKAYLA (cpt 21370) for guidance of percutaneous intracardiac procedure. 3D imaging (cpt 45540) rendering with interpretation was performed. LeftThe left ventricle is chamber size is moderately enlarged. Ventricle All of the LV segments are moderately hypokinetic . Global LV systolic function moderately reduced . Left Atrium LA size is enlarged. No evidence of left atrial or left atrial appendage thrombus. Right The right ventricular chamber size and systolic function are Ventricle within normal limits. Right AtriumRA cavity size is meghan l . Aortic ValveSevere AoV cusp calcification. A trace of aortic regurgitation. Severe aortic stenosis. Mitral ValveMild MV leaflet calcifi cation. Mild mitral annular calcification. Mild mitral regurgitation. Tricuspid Mild TV leaflet thick ening. Valve Mild tricuspid regurgitation. PulmonicMild PV leaflet thi ckening. Valve Normal PV structure and function by limited views and Doppler. Pericardium No significant pericardial effusion is visualized based on available v iews. Procedure Note Interface, External Ris In - 11/16/2019 1:45 PM CDT Transesophageal Echocardiography Report (MAKAYLA) Demographics Patient Name MAYRA, Date of Study 11/15/2019 ARTHUR Gender Male Visit Number [id number] Race Unknown Room [facility] 6104 Number Date of 1930 Referri Physician Gabriel Streeter MD Age 89 year(s) Archana Goodman [facility] Interpr eting Gabriel Streetre MD Physici an Procedure Type of Study MAKAYLA procedure:TRANSESOPHAGEAL ECHO Indications:TAVR. Clinical History CHF,HTN Height: 68.5 inches Weight: 68.04 kg (15 0 lbs) BSA: 1.82 m^2 BMI: 22.48 kg/m^2 HR: 86 bpm BP: 95/59 mmHg Summary Procedural MAKAYLA to guide TAVR procedure Pre procedural MAKAYLA 1. Severe AoV cusp calcification. A tra ce of aortic regurgitation. Severe aortic stenosis. 2. The left ventricle is chamber size i s moderately enlarged. All of the LV segments are moderately hypokinetic . Global LV systolic function moderately reduced . 3. The right ventricular chamber size a nd systolic function are within normal limits. Intra and Post procedural MAKAYLA 1. Successfully deployed Edward nic valve with residual mild AR. 2. Improved LV systolic function with s table RV systolic function. 3. No pericardial effusion. Signature Findings Rhythm/BP Interventional MAKAYLA (cpt 9 2615) for guidance of percutaneous intracardiac procedure. 3D imaging (cpt 08542) re ndering with interpretation was performed. Left The left ventricle is john mber size is moderately enlarged. Ventricle All of the LV segments ar e moderately hypokinetic . Global LV systolic functi on moderately reduced . Left Atrium LA size is enlarged. No evidence of left atria l or left atrial appendage thrombus. Right The right ventricular john mber size and systolic function are Ventricle within normal limits. Right Atrium RA cavity size is normal . Aortic Valve Severe AoV cusp calcifica tion. A trace of aortic regurgitation. Severe aor tic stenosis. Mitral Valve Mild MV leaflet calcifica tion. Mild mitral annular calci fication. Mild mitral regurgitation . Tricuspid Mild TV leaflet thickenin g. Valve Mild tricuspid regurgitat ion. Pulmonic Mild PV leaflet thickenin g. Valve Normal PV structure and f unction by limited views and Doppler. Pericardium No significant pericardia l effusion is visualized based on available views. Performing Organization Address [facility] Phone Number [facility] HEARTLAB [facility] CPACS aPTT (11/15/2019 3:26 AM CDT)Only the most recent of14 resultswithin the time period is included. PTT 79.3 (H) 22.5 - 36.0 seconds [facility] Specimen Blood Performing Organization Address City/[facility]/Zipcode Phone Number [address] [address] CENTER Blood culture (11/13/2019 4:08 PM CDT)Only the most recent of4 resultswithin the time period is included. Result No growth in 5 days [facility] Specimen Blood Performing Organization Address City/[facility]/Zipcode Phone Number [facility] [address] [place] [address] CENTER Urinalysis w/Microscopic + Reflex to Culture (11/13/2019 12:05 PM CDT)Only the most recent of2 resultswithin the time period is included. Color, UA Light Yellow [facility] Clarity, UA Clear [facility] Specific [place], UA 1.014 1.001 - 1.035 [facility] pH, UA 6.5 5.0 - 8.0 [facility] Protein, UA Negative Negative [facility] Glucose, UA Negative Negative [facility] Ketones, UA Negative Negative [facility] Bilirubin, UA Negative Negative [facility] Blood, UA Negative Negative [facility] Nitrite, UA Negative Negative [facility] Leukocytes, UA Negative Negative [facility] Urobilinogen, UA 0.2 0.2 - 1.0 mg/dL [facility] RBC, UA 1 /HPF [facility] WBC, UA 1 /HPF [facility] Squam Epithel, UA <1 /HPF [facility] Hyaline Casts, UA 1 /LPF [facility] Yeast Rare [facility] Specimen Source [facility] Specimen Urine Narrative Performed At Gate Mortiser Operator ID - [auto] [facility] Gate Mortiser Operator ID - tech Performing Organization Address City/State/Zipcode Phone Number [facility] [address] [place] [address] CENTER Type and screen, automated (11/13/2019 11:04 AM CDT)Only the most recent of2 resultswithin the time period is included. ABO/RH AUTOMATED (BEAKER) A POSITIVE [facility] Ab Scrn NEGATIVE [facility] Specimen Blood Performing Organization Address City/[facility]/Zipcode Phone Number [facility] [address] [place] [address] Hepatic function panel (11/13/2019 4:34 AM CDT)Only the most recent of4 results within the time period is included. Protein, Total 5.4 (L) 6.0 - 8.3 gm/dL [facility] Albumin 2.5 (L) 3.5 - 5.0 g/dL [facility] Total Bilirubin 0.9 0.2 - 1.2 mg/dL [facility] Bilirubin, Direct 0.5 0.1 - 0.5 mg/dL [facility] Alkaline Phosphatase 54 40 - 150 U/L [facility] AST 15 5 - 34 U/L [facility] ALT 17 6 - 55 U/L [facility] Specimen Blood Narrative Performed At Gate Mortiser Operator LISA - RUFUS Gregory [facility]ENTER Performing Organization Address City/[facility] Phone Number [address] [address] CENTER Body fluid cell count with differential (11/11/2019 1:09 PM CDT) Appearance Cloudy (A) Clear [facility] Color Yellow (A) Colorless, Straw [facility] RBCs 6,000 (H) <=1 /cu mm [facility] Adjusted WBC Count 1,392 (H) <=5 /cu mm [facility] Lining Cells 0 <=1 /cu mm [facility] % Segs 37 % [facility] % Lymphs 44 % [facility] % Monos 19 % [facility] % Eos 0 % [facility] % Baso 0 % [facility] Container Body Fluid Sterile Vial [facility] Specimen Body Fluid Performing Organization Address City/[facility] Phone Number [address] [address] CENTER Potassium (11/10/2019 10:34 AM CDT) Potassium 3.5 3.5 - 5.1 meq/L [facility] Specimen Blood Narrative Performed At Gate Mortiser Operator ID - DONNA Jacobsen [facility] Performing Organization Address [facility]m Phone Number [address] [address] CENTER INTRAOPERATIVE PATH REPORT - SCAN (11/09/2019 3:11 PM CDT) Narrative Performed At This result has an attachment that is no t available. Oxygen saturation, measured (11/08/2019 9:46 PM CDT) O2 Saturation (Measured) 64.5 % [facility] Specimen Blood Performing Organization Address [facility] Phone Number [address] [address] [place] Lactic acid, venous (11/08/2019 9:46 PM CDT)Only the most recent of3 results within the time period is included. Lactate, Venous 0.96 0.50 - 2.20 mmol/L [facility] Specimen Blood Narrative Performed At Gate Mortiser Operator ID - BS [facility] Performing Organization Address [facility]/Zipcode Phone Number [address] [address] CENTER PULMONARY FUNCTION - SCAN (11/08/2019 2:30 PM CDT) Narrative Performed At This result has an attachment that is no t available. REPORT OF PROCEDURE - ENDOSCOPY URL (11/07/2019 4:40 PM CDT) Narrative Performed At This result has an attachment that is no t available. EBUS FNA REQUEST (11/07/2019 4:11 PM CDT)Only the most recent of3 resultswithin the time period is included. Cytology See Separate Report [facility] Specimen EBUS Fine Needle Aspirate - Lymph Node, Lower Paratracheal, Left, Station 4L Performing Organization Address City/State/Zipcode Phone Number [facility] [address] [place] [address] [place] Fine Needle Aspiration by EBUS (11/07/2019 4:11 PM CDT)Only the most recent of3 resultswithin the time period is included. Case Report Medical Cytology Report Case: [id number] [facility] Authorizing Provider:Luis Alberto Zayas, MDCollected: 11/07/2019 04:11 PM [facility] Ordering Location: [place] [address] CCUReceived:11/07/2019 05:12 PM Pathologist: Berenice Eng MD Specimen:Lymph Node, Subcarinal, Station 7 DIAGNOSIS LYMPH NODE, SUBCARINAL, STAT ION 7, FNA BY CLINICIAN (CYTOSPINS AND CELL BLOCK OF ASPIRATE): [facility] - SATISFACTORY FOR EVALUATION [facility] - NEGATIVE FOR METASTATIC MALIGNANT CELLS - EVIDENCE OF LYMPH NODE SAMPLING ([place] US LYMPHOID TISSUE PRESENT) Signing Pathologist Direct Phone Line: COMMENT [facility] Please also see surgical pat hology report [id number] and cytopathology reports [id number] and [id number]. [facility] CPT Code(s) 98237, 15[address] [facility] CLINICAL DATA Right lower lobe mass, [facility] mediastinal adenopathy, [facility] abnormal CT scan of chest SPECIMEN SOURCE LYMPH NODE, SUBCARINAL, STATION [facility] 7 FNA [facility] GROSS DESCRIPTION Received 35 ml cytorich red fixative sample; prepared cell block(A2) and 2 cytospins [facility] Collected: [id number] [facility] Received: [id number] MICROSCOPIC DESCRIPTION Performed. [facility] SPECIAL STUDIES The interpretation of this c ase included the use of immunohistochemistry or special stains. [facility] Control Slides Examined: In -house known positive controls were evaluated along with the test tissue. These control slides run alongside of the patients sample show appropriate staining. Internal posit radha and negative controls when available are rosita hendrix Immunohistochemistry technic al testing was performed at [facility], Pathology Laboratory where it was developed and its performance characteristics were determined. It has not be en cleared or approved by [facility] U.S. Food and Drug Administration. The FDA has determined that such clearance or approval is not necessary. The test is used for clinical purposes. It should not be regarde d as investigational or for research. This laboratory is certified under the Clinical Laboratory Improvement Amendments of 1988 (CLIA-88) as qualified to perform high complexity clinical laboratory testing. Gross assessment was [facility] performed at [place], Department of [facility] Pathology, [address] [place] [address], Technical component was [facility] performed at [place], Department of [facility] Pathology, [address] [place] [address], Professional component [facility] was performed at [place], Department of [facility] Pathology, [address] [place] [address], Specimen EBUS Fine Needle Aspirate - Lymph Node, Subcarinal, Station 7 Narrative Performed At This result has an attachment that is no t available. Performing Organization Address City/State/Zipcode Phone Number [address] [phone] [place] Tissue Exam (11/07/2019 3:42 PM CDT) Case Report Surgical Pathology Report Case: [id number] [facility] Authorizing Provider:Luis Alberto Zayas MDCollected: 11/07/2019 03:42 PM [facility] Ordering Location: [place] [address] CCUReceived:11/07/2019 03:49 PM CENTER Pathologist: Lala Jimenez MD Specimens: A) - Lung, Ri ght Lower Lobe, Right lower lobe endobronchial tissue B) - Lung, Right Lower Lobe, TBBX. Process in Cytology for Collodion Bag, Reflex Gen etic Markers. ADDENDUM 3 THIS ADDENDUM IS ISSUED TO R EPORT THE RESULT OF EGFR MUTATION , ON BLOCK B1, AT [employer] LABORATORIES: [facility] - NOT DETECTED CENTER Please refer to the scanned report for additiona l information ADDENDUM 2 This addendum is issued to r eport the result of BRAF mutation on block B1. The test was done at [employer]: [facility] - BRAF Mutation: Not detected [facility] Please refer to the scanned report for evaluatio n ADDENDUM THIS ADDENDUM IS ISSUED TO R EPORT THE RESULTS OF BIOMARKER STUDIES, ON SPECIMEN B1: [facility] - ALK Rearrangement: Not Detected [facility] - ROS Gene Rearrangement: Not Detected (Negativ e) [place] - PD-L1 22C3 FDA (KEYTRUDA) for NSCLC : EXPRESSED. Tumor proportion score:1%, Intensity: 1% Please refer to the scanned report for additiona l information The test was done at [employer] DIAGNOSIS A. LUNG, RIGHT LOWER LOBE, ENDOBRONCHIAL BIOPSY: [facility] - POSITIVE FOR MALIGNANCY (SEE COMMENT [facility] B. 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 The frozen section shows rare clusters of malignant cells in a background of necrosis and inflammation. Malignant cells are not represented adequately on the permanent section for further characterization. [facility] MEDIC HI B. The neoplastic cells are positive for [id number] and negative for TTF-1. 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 Ge CENTER netic markers are being done at [email or web address] Report will follow CPT Code(s) 23276s9, 40826w0, 89328g2, [facility] Mireya Kaufman [facility] [id number] [facility] CLINICAL HISTORY Necrotizing pneumonia; lung [facility] mass [facility] SPECIMEN SOURCE A. Right lower lobe endobronchial tissue [facility] B. Lung, Right lower lobe transbronchial biopsy [facility] GROSS DESCRIPTION Specimen A is labeled "lung, right lower lobe". Received fresh for intraoperative consultation are three tiny fragments of tate-brown tissue measuring 0.3 cm each. The specimen is entirely submitted for frozen in cassette A1. SW/pl [facility] Specimen B: The specimen is received in a formalin-filled container and labeled with the patient's information and labeled "Lung, Right lower lobe transbronchial biopsy" and consists of fourteen white r CENTER agged 0.3 cm fragments; one white ragged 0.6 cm fragment; six red ragged 0.2 cm fragments; eight white ragged 0.2 cm fragments, submitted entirely B1 in a mesh bag. INTRAOPERATIVE A1FS : RIGHT LOWER LOBE, ENDOBRONCHIAL TISSUE, B IOPSY: [facility] CONSULTATION - POSITIVE FOR MALIGNANCY IN A BACKGROUND OF INFLAMMATION AND NECROSIS [facility] Reported by Dr. Jimenez, pathologist [id number] at 4 :02 p.m. MICROSCOPIC DESCRIPTION A-B: Performed [facility] SPECIAL STUDIES The interpretation of this c ase included the use of immunohistochemistry or special stains. [facility] TTF-1; [id number] [facility] EDICAL Control Slides Examined: In -house known positive controls were evaluated along with the test tissue. These control slides run alongside of the patients sample show appropriate staining. Internal posit CENTE R radha and negative controls when available are rosita hendrix Immunohistochemistry technic al testing was performed at [facility], Pathology Laboratory where it was developed and its performance characteristics were determined. It has not be en cleared or approved by [facility] [place].S. Food and Drug Administration. The FDA has determined that such clearance or approval is not necessary. The test is used for clinical purposes. It should not be regarde d as investigational or for research. This laboratory is certified under the Clinical Laboratory Improvement Amendments of 1988 (CLIA-88) as qualified to perform high complexity clinical laboratory testing. Gross assessment was [facility] performed at [facility] MEDICAL Pathology, [address] [place] [address], Technical component was [facility] performed at [facility] MEDICAL Pathology, [address] [place] [address], Professional component [facility] was performed at [facility] Pathology, [address] [place] [address], Specimen Tissue Tissue - Structure of lower lobe of righ t lung (body structure) Narrative Performed At This result has an attachment that is no t available. Performing Organization Address City/[facility] Phone Number [address] [address] CENTER ABORH, manual (11/07/2019 8:19 AM CDT) ABO Grouping A [facility] Rh Factor POS [facility] Specimen Blood Performing Organization Address City/[facility]/Zipcode Phone Number [address] [address] CBC (hemogram only) (11/07/2019 5:26 AM CDT)Only the most recent of5 results within the time period is included. WBC 13.8 (H) 3.5 - 10.5 K/L [facility] RBC 3.97 (L) 4.63 - 6.08 M/L [facility] Hemoglobin 11.8 (L) 13.7 - 17.5 GM/DL [facility] Hematocrit 36.2 (L) 40.1 - 51.0 % [facility] MCV 91.2 79.0 - 92.2 fL [facility] MCH 29.7 25.7 - 32.2 pg [facility] MCHC 32.6 32.3 - 36.5 GM/DL [facility] RDW 13.9 11.6 - 14.4 % [facility] Platelets 175 150 - 450 K/CU MM [facility] MPV 9.6 9.4 - 12.4 fL [facility] nRBC 0 0 - 0 /100 WBC [facility] Specimen Blood Performing Organization Address City/State/Zipcode Phone Number [facility] [address] [place] [address] chest without IV contrast (11/06/2019 4:11 PM CDT) Specimen Narrative Performed At FINAL REPORT ADmantX CT of the Chest dated 11/06/2019 COMPARISON: November 03, 2019 CLINICAL INFORMATION: SOB, pulmonary dony ma Comment:Axial images of the chest we re obtained from thoracic inlet to the upper abdomen without intravenous contrast. This exam was performed according to our departmental dose-optimization program, which include s automated exposure control, adjustment of the mA and/or kV according to patient size and/or use of interactive reconstruction technique. Heart is enlarged. Vascular calcificatio n is seen in the thoracic aorta and coronary arteries. Great vesse ls are unremarkable. Nonspecific lymph nodes are seen in the paratracheal, precarinal, subcarinal, and AP window mediastinum. T he largest lymph node measures approximately 9 mm. Trachea and mainstem bronchi are patent. There is moderate left pleural effusion and large right pleural effusion. Compressive atelectasis is see n in both lower lobes. Consolidation is seen in the right lower lobe. A 4.3 x 5.8 cm hypodense focus is seen in the right low er lobe suggestive of necrosis or abscess. Airspace disease is also seen in the right mid lobe suggestive of pneumonia. Groundglass pulmonary parenchymal diseas e is seen in both upper lobes. Visualized upper abdomen demonstrates no focal lesion. Impression: 1. Bilateral pleural effusion with bibas ilar compressive atelectasis. 2. Consolidation in the right lower lobe with a hypodense focus suggestive of abscess or necrosis. 3. Interval development of right mid lob e pneumonia. 4. Nonspecific groundglass pulmonary dis ease in the upper lobes. Signed: Mayela Green MD Report Verified Date/Time:11/06/2019 17:38:38 Reading Location: [facility] C013Y CT Body R eading Room Procedure Note Interface, External Ris In - 11/06/2019 5:40 PM CDT FINAL REPORT CT of the Chest dated 11/06/2019 COMPARISON: November 03, 2019 CLINICAL INFORMATION: SOB, pulmonary dony ma Comment: Axial images of the chest were obtained from thoracic inlet to the upper abdomen without intravenous contrast. This exam was performed according to our departmental dose-optimization program, which include s automated exposure control, adjustment of the mA and/or kV according to patient size and/or use of interactive reconstruction technique. Heart is enlarged. Vascular calcificatio n is seen in the thoracic aorta and coronary arteries. Great vesse ls are unremarkable. Nonspecific lymph nodes are seen in the paratracheal, precarinal, subcarinal, and AP window mediastinum. T he largest lymph node measures approximately 9 mm. Trachea and mainstem bronchi are patent. There is moderate left pleural effusion and large right pleural effusion. Compressive atelectasis is see n in both lower lobes. Consolidation is seen in the right lower lobe. A 4.3 x 5.8 cm hypodense focus is seen in the right low er lobe suggestive of necrosis or abscess. Airspace disease is also seen in the right mid lobe suggestive of pneumonia. Groundglass pulmonary parenchymal diseas e is seen in both upper lobes. Visualized upper abdomen demonstrates no focal lesion. Impression: 1. Bilateral pleural effusion with bibas ilar compressive atelectasis. 2. Consolidation in the right lower lobe with a hypodense focus suggestive of abscess or necrosis. 3. Interval development of right mid lob e pneumonia. 4. Nonspecific groundglass pulmonary dis ease in the upper lobes. Signed: Mayela Green MD Report Verified Date/Time: 11/06/2019 1 7:38:38 Reading Location: [facility] B1 C013Y CT Body R eading Room Performing Organization Address City/State/Zipcode Phone Number GE RIS Pulmonary Funct Lab Spirometry (11/06/2019 2:45 PM CDT) Narrative Performed At [place], [facility], [facility] 0203:21 PM [facility] PFT CHARTING REPORT Infection Control/Hand Hygiene procedure s followed throughout the encounter with patient: Yes Patient Identification Method: Patient n asa verified on armband, and Medical record on armband, Is the order complete?: Yes Account ID#: [id number] Patient Name: Arthur Nunez Birthdate: 1930 Age: 89 y.o.Sex: male Admission Date: 11/02/2019 Patient Status: Inpatient Reasons/Symptom for having the Test?: th e need of post-op transplant evaluation Type of study/treatment ordered by physi sophie: Spirometry Lab Results Component Value Date HGB 13.4 (L) 11/06/2019 Ranges: Adult Male 13 - 16.8 g/dlA dult Female 12 - 15 g/dl 6 Minute Walk (read only) 11/06/2019 020 11/06/2019 Pulse 87 117 120 SpO2 97 96 97 Study Date: 11/06/19 Study Time: 1445 ASSESSMENT History & Physical Mode of Arrival: Testing was performed at patient bedside Pulse: 120 Resp: 19SPO2: 97 %on RA Pain Assessment Pain:None TESTING/THERAPEUTICS Medications ordered or required for pro cedure: N/A PT EDUCATION/INSTRUCTIONS Barriers to learning: No known barriers to learning. Learning need identified: Yes, Patient/ Family/Guradian was informed of the ordered study by the lexus sigala Barriers to performing study or treatme nt: Patient has no known disability to perform the study or treat ment. DISCHARGE The study was completed in accordance wi th the physician's order and patient released from the lab withou t adverse outcome. Vancomycin level, trough (11/06/2019 3:40 AM CDT) Vancomycin Tr 23.1 (H) 10.0 - 20.0 ug/mL [facility] Specimen Blood Narrative Performed At Gate Mortiser Operator ID - PIAYA L [facility] Performing Organization Address City/State/Zipcode Phone Number [facility] [address] [place] [address] brain without IV contrast (11/05/2019 11:18 PM CDT) Specimen Narrative Performed At FINAL REPORT LessonFace RIS EXAM: CT head without contrast. CLINICAL HISTORY: Abnormal auditory perc eptions. COMPARISON: None. TECHNIQUE: CT images of the head were ob tained without intravenous contrast.This exam was performed acc ording to our departmental dose optimization program which includes auto mated exposure control, adjustment of the mA and/or kV according to patient's size and/or use of iterative reconstructive technique. FINDINGS: There is generalized parenchymal atrophy . There are moderate white matter microvascular ischemic changes. T here is a small area of encephalomalacia in the right parietal l obe which may a chronic infarct. There is intracranial calcific atherosclerosis. There is no acute intracranial hemorrhag e, extra-axial fluid collection, mass effect, herniation, hyd rocephalus or large demarcated acute territorial infarct. The basal cisterns are patent. The visualized orbits are normal.The visualized paranasal sinuses and tympanomastoid cavities are clear. The skull base and calvarium are intact. IMPRESSION: Moderate white matter microvascular isch emic changes. Chronic right parietal lobe infarct.No CT evidence of an acute intracranial process. MRI may be performed for furthe r evaluation as clinically warranted. Signed: Mario Bills MD Report Verified Date/Time:11/05/2019 23:24:44 Procedure Note Interface, External Ris In - 11/05/2019 11:26 PM CDT FINAL REPORT EXAM: CT head without contrast. CLINICAL HISTORY: Abnormal auditory perc eptions. COMPARISON: None. TECHNIQUE: CT images of the head were ob tained without intravenous contrast. This exam was performed accor ding to our departmental dose optimization program which includes auto mated exposure control, adjustment of the mA and/or kV according to patient's size and/or use of iterative reconstructive technique. FINDINGS: There is generalized parenchymal atrophy . There are moderate white matter microvascular ischemic changes. T here is a small area of encephalomalacia in the right parietal l obe which may a chronic infarct. There is intracranial calcific atherosclerosis. There is no acute intracranial hemorrhag e, extra-axial fluid collection, mass effect, herniation, hyd rocephalus or large demarcated acute territorial infarct. T he basal cisterns are patent. The visualized orbits are normal. The v isualized paranasal sinuses and tympanomastoid cavities are clear. The skull base and calvarium are intact. IMPRESSION: Moderate white matter microvascular isch emic changes. Chronic right parietal lobe infarct. No CT evidence o f an acute intracranial process. MRI may be performed for furthe r evaluation as clinically warranted. Signed: Mario Bills MD Report Verified Date/Time: 11/05/2019 2 3:24:44 Performing Organization Address City/State/Zipcode Phone Number [facility] EKG-SCANNED (11/05/2019 3:50 PM CDT) Narrative Performed At This result has an attachment that is no t available. Carotid doppler bilateral (11/05/2019 12:38 PM CDT) Ejection Fraction [facility] HEAR TLAB [facility] CPACS Specimen Impressions Performed At Right Impression [facility]ART[facility] CPACS 1. There is <50% diameter reduction (approximately 32% by 2-D measurement) in the internal carotid artery with a peak velocity of 82/24 cm/sec and heterogeneous plaque. 2. There is non-occluding plaque in the external carotid artery. 3. There is non-occluding plaque in the common carotid artery. 4. The vertebral artery flow is antegrade and normal. 5. The subclavian artery is within normal limits where visualized. Left Impression 1. There is <50% diameter reduction (approximately 24% by 2-D measurement) in the internal carotid artery with a peak velocity of 50/13 cm/sec and heterogeneous plaque. 2. There is non-occluding plaque in the external carotid artery. 3. There is non-occluding plaque in the common carotid artery. 4. The vertebral artery flow is antegrade and normal. 5. The subclavian artery is within normal limits where visualized. Conclusions Summary Carotid duplex scanning and color flow imaging were performed bilaterally. The arteries were adequately visualized. The bilateral internal carotid arteries had <50% hemodynamically insignificant stenosis (approximately 32% by 2-D measurement on the right, approximately 24% by 2-D measurement on the left) with heterogeneous plaque. The vertebral artery flow was antegrade and normal bilaterally. Signature Velocities are measured in cm/s ; Diameters are measured in cm Carotid Right Measurements + +----+----+-----+ +---- + + !Location !PSV !EDV !Angle!%Stenosis 2D!%Stenosis Doppler!Tortuosity ! + +----+----+-----+ +---- + + !Prox CCA !62.7!19.3!60 !! ! ! + +----+----+-----+ +---- + + !Dist CCA !80.8!26.7!60 !! ! ! + +----+----+-----+ +---- + + !Prox ICA !82!24.2!60 !32% !<50% ! ! + +----+----+-----+ +---- + + !Dist ICA !77.7!21.1!60 !! ! ! + +----+----+-----+ +---- + + !Prox ECA !85.7!13.7!60 !! ! ! + +----+----+-----+ +---- + + !Vertebral!21.3!8.28!60 !! ! ! + +----+----+-----+ +---- + + !Prox Subclavian!64!!60 !! ! ! + +----+----+-----+ +---- + + - Additional Measurements:ICAPSV/CCAPSV 1.01.ICAEDV/CCAEDV 1.25. Carotid Left Measurements + +----+----+-----+ +---- + + !Location !PSV !EDV !Angle!%Stenosis 2D!%Stenosis Doppler!Tortuosity ! + +----+----+-----+ +---- + + !Prox CCA !89.5!12.4!60 !! ! ! + +----+----+-----+ +---- + + !Dist CCA !66.5!14.3!60 !! ! ! + +----+----+-----+ +---- + + !Prox ICA !50.9!13.7!60 !24% !<50% ! ! + +----+----+-----+ +---- + + !Dist ICA !39.3!10.8!44 !! ! ! + +----+----+-----+ +---- + + !Prox ECA !114 !13!60 !! ! ! + +----+----+-----+ +---- + + !Vertebral!21.1!4.14!60 !! ! ! + +----+----+-----+ +---- + + !Prox Subclavian!63!!60 !! ! ! + +----+----+-----+ +---- + + - Additional Measurements:ICAPSV/CCAPSV 0.77.ICAEDV/CCAEDV 1.1. Narrative Performed At LAB - Carotid Duplex Study [facility] Demographics Patient NameOpal NUNEZkarel of Study 11/05/2019 N [id number] Visit [id number] Male of 1930 Referring Gabriel Streeter,Room Number 6 210 Physician Supervisor Metal Cans Philipp recio T Physician ESQUEDA Procedure Type of Study: Cerebral: Carotid, CAROTID DOPPLER, FANY ATERAL. Indications for Study:TAVR workup . Patient Status:Routine. Study Location:Portable. Technical Quality:Adequate visualization . Risk Factors History of Disease + -----+ +--------+ !Diagnosis !Date!Comments! + -----+ +--------+ !History/Risk Factors: !11/03/2019!CHF ! ! !! ! ! !!SOB ! + -----+ +--------+ Procedure Note Interface, External Ris In - 11/06/2019 10:23 AM CDT [facility] LAB - Carotid Duplex Study Demographics Patient Name ARTHUR NUNEZ Thomas e of Study 11/05/2019 Age 89 Visit Number [id number] Gen jin Male Accession Number [id number] Thomas e of 1930 Referring Sylvia Trano m Number [id number] Physician Supervisor Metal Cans Philipp Martinez Int erpreting Reshma Bal, T Lexus sigala MD Procedure Type of Study: Cerebral: Carotid, CAROTID DOPPLER, FANY ATERAL. Indications for Study:TAVR workup . Patient Status:Routine. Study Location:Portable. Technical Quality:Adequate visualization . Risk Factors History of Disease + + +--------+ !Diagnosis !Date !Comments! + + +--------+ !History/Risk Factors: !11/03/2019!CHF ! ! ! ! ! ! ! !SOB ! + + +--------+ Impressions Right Impression 1. There is <50% diameter reduction (xavier roximately 32% by 2-D measurement) in the internal carotid artery with a pe ak velocity of 82/24 cm/sec and heterogeneous plaque. 2. There is non-occluding plaque in the external carotid artery. 3. There is non-occluding plaque in the common carotid artery. 4. The vertebral artery flow is antegrad e and normal. 5. The subclavian artery is within meghan l limits where visualized. Left Impression 1. There is <50% diameter reduction (xavier roximately 24% by 2-D measurement) in the internal carotid artery with a pe ak velocity of 50/13 cm/sec and heterogeneous plaque. 2. There is non-occluding plaque in the external carotid artery. 3. There is non-occluding plaque in the common carotid artery. 4. The vertebral artery flow is antegrad e and normal. 5. The subclavian artery is within meghan l limits where visualized. Conclusions Summary Carotid duplex scanning and color flow imaging were performed bilaterally. The arteries were adequately visualized . The bilateral internal carotid arteries had <50% hemodynamically insig nificant stenosis (approximately 32% by 2-D measurement on the right, ap proximately 24% by 2-D measurement on the left) with heterogeneous plaque. The vertebral artery flow was antegrade and normal bilaterally. Signature Velocities are measured in cm/s ; Diamet ers are measured in cm Carotid Right Measurements + +----+----+-----+------- -----+ + + !Location !PSV !EDV !Angle!%Stenos is 2D!%Stenosis Doppler!Tortuosity ! + +----+----+-----+------- -----+ + + !Prox CCA !62.7!19.3!60 ! ! ! ! + +----+----+-----+------- -----+ + + !Dist CCA !80.8!26.7!60 ! ! ! ! + +----+----+-----+------- -----+ + + !Prox ICA !82 !24.2!60 !32% !<50% ! ! + +----+----+-----+------- -----+ + + !Dist ICA !77.7!21.1!60 ! ! ! ! + +----+----+-----+------- -----+ + + !Prox ECA !85.7!13.7!60 ! ! ! ! + +----+----+-----+------- -----+ + + !Vertebral !21.3!8.28!60 ! ! ! ! + +----+----+-----+------- -----+ + + !Prox Subclavian!64 ! !60 ! ! ! ! + +----+----+-----+------- -----+ + + - Additional Measurements:ICAPSV/CCAPS V 1.01.ICAEDV/CCAEDV 1.25. Carotid Left Measurements + +----+----+-----+------- -----+ + + !Location !PSV !EDV !Angle!%Stenos is 2D!%Stenosis Doppler!Tortuosity ! + +----+----+-----+------- -----+ + + !Prox CCA !89.5!12.4!60 ! ! ! ! + +----+----+-----+------- -----+ + + !Dist CCA !66.5!14.3!60 ! ! ! ! + +----+----+-----+------- -----+ + + !Prox ICA !50.9!13.7!60 !24% !<50% ! ! + +----+----+-----+------- -----+ + + !Dist ICA !39.3!10.8!44 ! ! ! ! + +----+----+-----+------- -----+ + + !Prox ECA !114 !13 !60 ! ! ! ! + +----+----+-----+------- -----+ + + !Vertebral !21.1!4.14!60 ! ! ! ! + +----+----+-----+------- -----+ + + !Prox Subclavian!63 ! !60 ! ! ! ! + +----+----+-----+------- -----+ + + - Additional Measurements:ICAPSV/CCAPS V 0.77.ICAEDV/CCAEDV 1.1. Performing Organization Address City/State/Zipcode Phone Number [facility] Lactate Dehydrogenase (LD), Pleural Fluid (11/03/2019 7:12 PM CDT) Lactate Dehydrogenase 102 See Note: U/L [facility] (LD), Pleural Fluid Comment: INC[facility]PORATED Reference Range: TRANSUDATE:<113 EXUDATE: >113 Specimen Body Fluid Narrative Performed At Performing Lab [facility] [address] [address] [place] [address] Clarissa Zavala MD, PhD, SHELLIE Performing Organization Address [facility] Phone Number [facility] [place] [address] [facility]ATED [address] [facility] Glucose Pleural Fluid (11/03/2019 4:44 PM CDT) Glucose, Pleural Fluid 131 mg/dL [facility] Comment: [facility] Reference range approximates that found in serum . Specimen Body Fluid Narrative Performed At Performing Lab [facility] [address] [address] [place] [address] Clarissa Zavaal MD, PhD, SHELLIE Performing Organization Address [facility] Phone Number [facility] [place] [address] [facility]PORATED [address] [facility] Body fluid culture + gram stain (11/03/2019 4:44 PM CDT) Result No growth [facility] Gram Stain Result 4+ WBCs [facility] Gram Stain Result No organisms seen [facility] Specimen Body Fluid Performing Organization Address [facility] Phone Number [address] [address] CENTER Protein, Total, Pleural Fluid (11/03/2019 4:43 PM CDT) PROTEIN, TOTAL, PLEURAL FLUID 2.4 g/dL [facility] Specimen Body Fluid Performing Organization Address [facility] Phone Number [address] [address] CENTER MRSA screen (11/03/2019 12:14 PM CDT) Result No MRSA isolated [facility] Specimen Nasal Performing Organization Address City/State/Zipcode Phone Number [facility] [address] [place] [address] CENTER Aspergillus galactomannan antigen (11/03/2019 12:10 PM CDT) Aspergillus Index Value <0.50 [facility] Aspergillus Antigen NOT DETECTED [facility] Comment: [facility] REFERENCE RANGE: <0.50, NOT DETECTED A negative result does not exclude invasive aspergillosis. Follow-up testing may be indicate d for high-risk patients. Specimen Blood Narrative Performed At Performing Lab [facility] *[employer] [address] [place] [address] Nivia Rodriguez MD Performing Organization Address City/[facility]/Zipcode Phone Number [facility] [place] [address] [facility] [address] [facility] Fungal Panel (11/03/2019 12:09 PM CDT) Fungal Panel1 Refer to individual [facility] Aspergillus, Blastomyces, Coccidioides & Histoplasma Ab results. Specimen Blood Performing Organization Address [facility] Phone Number [facility] [place] [address] [facility] [address] [facility] fungitel (11/03/2019 12:07 PM CDT) Scan Result <31 [facility] Specimen Blood Narrative Performed At This result has an attachment that is no t available. Performing Organization Address City/[facility]/Zipcode Phone Number [facility] [address] [place], [place] Strep pneumoniae antigen (11/03/2019 9:58 AM CDT) Strep pneumoniae Presumptive negative Presumptive negative [facility] Antigen for pneumococcal for pneumococcal [facility] pneumonia - see comment pneumonia - see CENTER comment, Presumptive negative for pneumococcal meningitis - see comment Specimen Urine Narrative Performed At Presumptive negative for pneumococcal [facility] pneumonia, suggesting no current or recent pneumococcal infection. Infection due to S. pneumoniae cannot be ruled out since the antigen present in the sample may be below the detection limit of the test. Performing Organization Address [facility]/Zipcode Phone Number [address] [address] [place] Legionella antigen, urine (11/03/2019 9:57 AM CDT) Legionella Urine Antigen Negative - see [facility] commentComment: Negative [facility] for L. pneumophila serogroup 1 antigen, suggesting no recent or current infection with this serogroup. Legionellosis cannot be ruled out since other serogroups and species may cause disease. Specimen Urine - Urine, Sterile Collection Performing Organization Address [facility] Phone Number [address] [address] [place] Histoplasma antigen, urine (11/03/2019 9:15 AM CDT) Histoplasma Antigen <0.2 ng/mL [facility] Comment: INC[facility]PORATED REFERENCE RANGE: <0.2 ng/mL Histoplasma galactomannan is frequently detected in urine from patients with disseminated histoplasmosis. However, a negative result does not exclude a diagnosis of histoplasmosis. Many patients with acute pulmonary disease or chronic cavitary disease do not exhibit antigenuria. Specimens from patients with other endemic fungal infections, such as blastomycosis, paracoccidioidomycosis, or candidiasis, may also be positive in this assay. This test should be used in conjunction with [facility] er diagnostics tests, including culture, molecular assays, and histology in making a final diagnosi s. Specimen Urine Narrative Performed At Performing Lab [facility] *[employer] [address] [place] [address] Nivia Rodriguez MD Performing Organization Address City/State/Zipcode Phone Number [facility] [place] [address] [facility] [address] [facility] Procalcitonin (11/03/2019 8:46 AM CDT) Procalcitonin 1.00 (H) <0.05 ng/mL [facility] Specimen Blood Narrative Performed At SEPSIS RISK (ng/mL) [facility] Low:0.05-0.50 Intermediate: 0.51-2.00 High: >=2.01 Performing Organization Address City/State/Zipcode Phone Number [address] [address] CENTER Cortisol (11/03/2019 8:46 AM CDT) Cortisol, Total 21.3 (H) 3.7 - 19.4 ug/dL [facility] Specimen Blood Narrative Performed At Gate Mortiser Operator ID - ALYSE W [facility] ICAL [place]ID[place] Performing Organization Address City/[facility] Phone Number [address] [address] CENTER TSH/Free T4 If Indicated (11/03/2019 8:46 AM CDT) TSH 0.325 (L) 0.350 - 4.940 uIU/mL [facility] Specimen Blood Narrative Performed At Gate Mortiser Operator ID - LM [facility] Performing Organization Address [facility] Phone Number [address] [address] CENTER T4, free (11/03/2019 8:46 AM CDT) Free T4 0.71 0.70 - 1.48 ng/dL [facility] Specimen Blood Narrative Performed At Gate Mortiser Operator ID - LM [facility] ICAL CENTER Performing Organization Address City/[facility] Phone Number [address] [address] CENTER Hemoglobin A1c (11/03/2019 8:46 AM CDT) Hemoglobin A1C 5.4 4.3 - 6.1 % [facility] Specimen Blood Performing Organization Address City/[facility]/Zipcode Phone Number [address] [address] CENTER Troponin I (11/03/2019 1:24 AM CDT)Only the most recent of3 resultswithin the time period is included. Troponin I 0.58 (HH) 0.00 - 0.03 ng/mL [facility] Specimen Blood Narrative Performed At Troponin I (TnI) levels must be interpreted [facility] in the context of the presenting symptoms and the clinical findings. Elevated TnI levels indicate myocardial damage, but are not specific for ischemic heart disease. Elevated TnI levels are seen in patients with other cardiac conditions (including myocarditis and congestive heart failure), and slight TnI elevations occur in patients with other conditions, including sepsis, renal failure, acidosis, acute neurological disease, and persistent tachyarrhythmia. Gate Mortiser Operator ID - PIAYA L Performing Organization Address City/State/Zipcode Phone Number [address] [address] CENTER Venous doppler legs bilateral (11/03/2019 1:04 AM CDT) Ejection Fraction [facility] ECHO HEAR TLAB [facility] CPACS Specimen Impressions Performed At Right Impression [facility] ECHO HEARTLAB [facility] CPACS 1. There is no deep venous obstruction in the common femoral, profunda femoral, femoral, popliteal, posterior tibial or peroneal veins. 2. There is no superficial venous obstruction in the great saphenous vein. Left Impression 1. There is no deep venous obstruction in the common femoral, profunda femoral, femoral, popliteal, posterior tibial or peroneal veins. 2. There is no superficial venous obstruction in the great saphenous vein. Conclusions Summary Venous duplex imaging and compression of the bilateral lower extremities were performed. The veins were adequately visualized. The bilateral venous systems were patent and compressible with no evidence of thrombus. The venous Doppler waveforms were phasic with respiration . Signature Velocities are measured in cm/s ; Diameters are measured in cm Narrative Performed At LAB - Lower Extremities DVT Study [facility] ECHO HEARTLAB [facility] Demographics Patient Name Sarai NUNEZ of Study11/03/2019 [id number] Visit Number [id number] Male Accession Number [id number] of Birth1930 Emelina Abraham Room Number 6210 MD Joesph SonographViviana Escobar [facility] Interpreting Reshma Bal , Physician Procedure Type of Study: Veins: Lower Extremities DVT Study, VENOUS DOPPLER LEG, BILATERAL. Indications for Study:Shortness of breat h. Patient Status:STAT. Study Location:Portable. Technical Quality:Adequate visualization . Risk Factors History of Disease + -----+ +--------+ !Diagnosis !Date!Comments! + -----+ +--------+ !History/Risk Factors: !11/03/2019!CHF ! ! !! ! ! !!SOB ! + -----+ +--------+ Procedure Note Interface, External Ris In - 11/03/2019 11:15 AM CDT PV LAB - Lower Extremities DVT Study Demographics Patient Name ARTHUR NUNEZ Da te of Study 11/03/2019 Ag e 89 Visit Number [id number] Javier soliz Male Accession Number [id number] Da te of 1930 Referring Ciara Ward om Number [id number] Physician MD [employer] Supervisor [employer] Eloise Escobar T In terpreting Reshma Bal, Ph ysician Procedure Type of Study: Veins: Lower Extremities DVT Study, SEDA OUS DOPPLER LEG, BILATERAL. Indications for Study:Shortness of breat h. Patient Status:STAT. Study Location:Portable. Technical Quality:Adequate visualization . Risk Factors History of Disease + + +--------+ !Diagnosis !Date !Comments! + + +--------+ !History/Risk Factors: !11/03/2019!CHF ! ! ! ! ! ! ! !SOB ! + + +--------+ Impressions Right Impression 1. There is no deep venous obstruction i n the common femoral, profunda femoral, femoral, popliteal, posterior t ibial or peroneal veins. 2. There is no superficial venous obstru ction in the great saphenous vein. Left Impression 1. There is no deep venous obstruction i n the common femoral, profunda femoral, femoral, popliteal, posterior t ibial or peroneal veins. 2. There is no superficial venous obstru ction in the great saphenous vein. Conclusions Summary Venous duplex imaging and compression o f the bilateral lower extremities were performed. The veins were adequate ly visualized. The bilateral venous systems were patent and compressible wi th no evidence of thrombus. The venous Doppler waveforms were phasic wi th respiration . Signature Velocities are measured in cm/s ; Diamet ers are measured in cm Performing Organization Address City/State/Zipcode Phone Number [facility] ECHO HEARTLAB [facility] CPA CTA chest (11/03/2019 12:30 AM CDT) Specimen Narrative Performed At Addendum [facility] LessonFace RIS REPORT STATUS:A I agree with the nonvascular findings as below: *Moderate sized left and large right ple ural effusions. *There is a centrally nonenhancing area in the right lower lobe with surrounding hypoenhancement. This is eit her due to a necrotic pneumonia or necrotic mass which measure s up to 8.6 cm. *There are several prominent and enlarge d mediastinal lymph nodes which could be reactive or metastatic. T he etiology of the right lower lobe hypoenhancing area. *There are interstitial and groundglass opacities of the both lungs which are indeterminate and could be due to infection. COVID pneumonia is in the differential.Per the electronic medical record, the COVID test was negative.If the p atient has ongoing symptoms, an additional test should be considered. *Cholelithiasis without acute cholecysti tis. *A right upper pole renal cyst measures 3.1 cm and has thick internal calcifications, Bosniak 2F. A follow-up CT of the abdomen with and without intravenous contrast, renal mass protocol, is recommended in six months to document stability. *Non-rotation of the bowel. *The prostate is enlarged with several i nternal calcifications. There may have been a prior TURP. *There is hyperenhancement of a short se gment of jejunum in the right upper quadrant from an indeterminate cau se. Enteritis is possible. This could be due to inflammation. Close attention on future follow-up examinations is recommended. Signed: Russ Gilbert MD Report Verified Date/Time:11/05/2019 11:32:40 Reading Location: [address] Radiolog y Reading Room Addendum Ends FINAL REPORT CT angiography of the thoracoabdominal a jono and pelvic arteries, 03-Nov-19 INDICATION: This is a 89 years old male, with a diagnosis of aortic stenosis, presents of preprocedure TAVR assessment. TECHNIQUE: Spiral acquisition before and during intravenous contrast administration using a Christian multidete ctor CT scanner. Images were obtained before and during the dynamic p assage of intravenous contrast material.Multi-planar 3-D v olume-rendering reconstruction was performed using an independent works tation interactively by the interpreting physician as well as the 3- D specialist for optimal visualisation of the thoracoabdominal ao rta, the pelvic arteries as well as its proximal branches. Please refer to the contrast sheet scann ed in the CrossCurrent system for the amount and route of contrast given. This exam was performed according to our departmental dose-optimisation programme, which inclu cassie automated exposure control, adjustment of the mA and/or kV according to patient size and/or use of iterative reconstruction t echnique. Dose modulation, iterative reconstruction, and/or weight based adjustment of the mA/kV was utilized to reduce the radiation dos e to as low as reasonably achievable. FINDINGS: VASCULAR: Pericardial effusion is noted, located p osterior to the right atrium. The central pulmonary arteries are meghan l in calibre. The cardiac chambers demonstrate normal atrioventricular and ventriculoarterial concordance, and syst emic and pulmonary venous return. The left ventricle is normal in size. Ev en in mid diastole, a degree of left ventricular hypertrophy is ident ified concentric. Correlate with echocardiography. Left atrial enlar gement is identified. Mitral annular calcification is identified in t he posterior mitral valve annulus. Coronary artery origins are normal. Diff use calcification identified in the LAD territory. Mild calcification seen in the LCx territory. Patient has a diagnosis of aortic stenos is.The aortic valve is tricuspid. The aortic Agatston score is 6340.The aortic valve area is 82 mm2. The location of aortic valvul ar calcification can be seen in reformatted data set sent to PACS. Regarding the aorta, there is no calcifi cation is seen in the aortic root/ascending thoracic aorta. The trans verse arch and descending thoracic aorta has mild scattered calcif ication identified. The abdominal aorta has moderate circumferen tial calcification present with associated noncalcific atherosclero sis, and there is likely a degree of atherosclerotic ulceration pratibha ntified, for example at image 397, representing a spectrum of underlyi ng atherosclerosis. No ectasia or aneurysmal dilation is identi fied. There is no evidence of acute aortic pat hology, specifically, there is no dissection, intramural hematoma, o r contained rupture. The arch vessel branching pattern is nor mal and the visualized arch vessels are widely patent proximally. Th e left subclavian artery, has noncalcific atherosclerosis identified a t image 45, with minimum luminal diameter of 5.9 x 7.6 mm in diam eter. At image 21, the minimum luminal diameter is approximatel y 6 to 7 mm. Minimal nonobstructive Consultation is seen at t he takeoff of the right subclavian artery, at image 22, it measu re 7 to 8 mm in diameter. There are single left and right renal ar teries are patent with nonobstructive calcification seen at the origin of the left and the right renal arteries. The coeliac axis, SMA, and BRIT are widely patent. The common iliac, external iliac, common femoral, and the visualised superficial femoral arteries, bilaterall y, are patent with no obstructive lesion identified. Scattered calcification is identified. See dimensions below for details. Dimensions that may be helpful for TAVR as follows: The aortic root/ascending thoracic aorta is essentially free of calcification. The major and minor aortic annulus diame ter measures 28.1 and 24.4 mm, respectively. The aortic annulus per imeter measured 84 mm and the cross-sectional area measures 552 mm2. T he aortic annulus diameter at the traditional LVOT and coronal LVOT me asures 21.6 and 25.7 mm, respectively. For reference purpose, per RANDHAWA S3 olimpia egan, recommendation are as follows: CT area between 273 to 345 mm2 (20 mm valve); 338 to 430 mm2 (23 mm valve); 430 to 546 mm2 (26 mm johnathon ve); 540 to 683 mm2 (29 mm valve). For reference purpose, per [employer] Gabino blake joshi, recommendation are as follows: CT perime ter between 56.5-62.8 mm (23 mm valve); 62.8-72.3 mm (26 mm valve); 7 2.3-81.7 mm (29 mm valve); and 81.7-94.2. mm (34 mm valve). For reference purpose, per Kathy Edge olimpia egan, recommendation are as follows: 23mm valve is recommended for C T perimeter between 62.8-72.3 mm; diameter between 20-23 mm; or area b etween 314-415.5 mm2. For 25mm valve, it is recommended for CT per imeter between 72.3-78.5 mm; diameter between 23-25 mm; or area betwe en 415.5-490.9 mm2.For 27mm valve, it is recommended for CT perimete r between 78.5-84.8 mm; diameter between 25-27 mm; or area betwe en 490.9-572.6 mm2. Agatston Score is 6340. The aortic valve area is 82 mm2. The distance between the take off of the RCA and the annulus (diastole): 13.0 mm The distance between the take off of the LM and the annulus (diastole): 15.5 mm The sinus of Valsalva diameter, RCC (chris stole): 34.0 mm The sinus of Valsalva diameter, LCC (chris stole): 37.5 mm The sinus of Valsalva diameter, NCC (chris stole): 35.7 mm The sinotubular junction measures, 28.6 x 32.4mm. The aortic root angulation measures 45.5 degrees. The minimal and perpendicular abdominal aortic diameter measure 11.0 and 12.8 mm, respectively. There is no evidence of thoracoabdominal aortic aneurysm or stent placement present. The minimum and the perpendicular left c ommon iliac artery measures 7.6 and 8.7 mm, respectively with mild-t o-moderatetortuosity and mildcalcific atherosclerosis present . The minimum and the perpendicular left external iliac artery measures 8.0 and 8.2 mm, respectively with mildtortuosity and nocalcific atherosclerosis present. The minimum and the perpendicul ar left femoral artery measures 7.0 and 7.4 mm, respectively with notortu osity and minimal calcific atherosclerosis present. The minimum and the perpendicular right common iliac artery measures 6.5 and 8.6 mm, respectively with modera tetortuosity and mild calcific atherosclerosis present. The mi nimum and the perpendicular rightexternal iliac artery measures 7.5 and 7.7 mm, respectively with moderatetortuosity and mildcalcific ather osclerosis present. The minimum and the perpendicular right femoral artery measures 5.9 and 7.2 mm, respectively with mildto rtuosity and mildcalcific atherosclerosis present. NON-VASCULAR: The visualised thyroid gland is unremark able. The chest wall and mediastinum appear no rmal. A number of lymph nodes are identified, likely reactive in natur e, and some are calcified indicating prior granulomatous disease. In the lung windows, no endobronchial le giovanni is seen. Bibasal pleural effusions identified right greater than left, and at least moderate in nature in the right, with associated changes/consolidation identified. Pulmonary vasculature is pro minent suggesting a degree of cardiac congestion especially in the set ting of aortic stenosis.In addition, patchy groundglass opacities a re seen in the anterior aspect of both upper lobes likely as a r esult of underlying cardiac congestion, though atypical infection ca nnot be excluded. Correlate clinically. Calcified nodule is seen for example in the left lower lobe at image 153 indicating prior granulomatous disea se. Furthermore, in the left upper lobe, for example image 94, air space disease is identified. An addendum will be dictated thereafter. In the abdomen, the liver and spleen xavier ears unremarkable. The liver edge is smooth. No abnormal enhancing st ructure is identified. Calcified granuloma is identified in the liver and the spleen. Gallstone is seen in the gallbladder wit h no wall thickening identified. The adrenal glands could be minimally hypoplastic though no nodule is seen. The pancreas appears unremarkable. Bowel is not well assessed by CT angiogr aphy as enteric contrast is not given. No obvious bowel dilation is identified. The prostate is prominent with calcifica tion identified. The bladder is mildly distended. No free air or free fluid is identified in the abdomen and pelvis. No significant retroperitoneal adenopathy i s identified. No acute renal pathology seen and no hyd ronephrosis or perirenal fluid collection is identified. Note, in the outer aspect of the upper pole of the right kidney, image 34 9, hypodensity is seen with coarse calcification identified. At imag e 315, it measures 3.0 x 1.5 cm with height of 2.8 cm. It is difficul t to determine if any enhancement is present. An addendum will dictated thereafter, regarding optimal recommendation, likely include follow-up versus dedicated cross sectional imaging of the kidney. No acute bony pathology is seen.Mild anterolisthesis identified at L4/L5 level. CONCLUSIONS: 1. Patient has a diagnosis of aortic stenosis. The aortic valve is tricuspid.The aortic Agatston Score is over 6000, and aortic valve area is 82 mm2. Focal mitral annular darryl cification is identified anteriorly. No obvious calcification is seen in the aortic root/ascending thoracic aorta. Dimensions that may be helpful for TAVR as described above. Calcification is seen at the level of th e noncoronary cusp, and also immediately inferior to the noncoronary cusps at the aortic annular level. See reformatted data set for deta ils. 2.Coronary artery origins are normal and focal calcific lesion is identified in the LAD territory. A degree of concentric left ventricular hypertrophy is noted. 3.Bilateral pleural effusion right g reater than left, at least moderate in nature in the right. Pulmonary vasculature is prominent sugge sting underlying cardiac congestion. Patchy groundglass opacities are seen especially in the upper lobe, likely as a sequelae of eliza estion, however, atypical infection cannot be excluded. Finally, focal airspace disease is ident ified in the left upper lobe, for example at image 94. An addendum dic tated thereafter. 4.Other findings as described above. 5.An addendum will be dictated regar ding the non-vascular findings by the [employer] Admin Radiologist. Signed: Gaudencio Valencia MD Report Verified Date/Time:11/04/2019 09:18:32 Reading Location: [place] [address] CT Reading Room Procedure Note Interface, External Ris In - 11/05/2019 11:34 AM CDT Addendum Begins REPORT STATUS:A I agree with the nonvascular findings as below: *Moderate sized left and large right ple ural effusions. *There is a centrally nonenhancing area in the right lower lobe with surrounding hypoenhancement. This is eit her due to a necrotic pneumonia or necrotic mass which measure s up to 8.6 cm. *There are several prominent and enlarge d mediastinal lymph nodes which could be reactive or metastatic. T he etiology of the right lower lobe hypoenhancing area. *There are interstitial and groundglass opacities of the both lungs which are indeterminate and could be due to infection. COVID pneumonia is in the differential. Per t he electronic medical record, the COVID test was negative. If the pat ient has ongoing symptoms, an additional test should be considered. *Cholelithiasis without acute cholecysti tis. *A right upper pole renal cyst measures 3.1 cm and has thick internal calcifications, Bosniak 2F. A follow-up CT of the abdomen with and without intravenous contrast, renal mass protocol, is recommended in six months to document stability. *Non-rotation of the bowel. *The prostate is enlarged with several i nternal calcifications. There may have been a prior TURP. *There is hyperenhancement of a short se gment of jejunum in the right upper quadrant from an indeterminate cau se. Enteritis is possible. This could be due to inflammation. Close attention on future follow-up examinations is recommended. Signed: Russ Gilbert MD Report Verified Date/Time: 11/05/2019 1 1:32:40 Reading Location: [address] Radiolog y Reading Room Addendum Ends FINAL REPORT CT angiography of the thoracoabdominal a jono and pelvic arteries, 03-Nov-19 INDICATION: This is a 89 years old male, with a diagnosis of aortic stenosis, presents of preprocedure TAVR assessment. TECHNIQUE: Spiral acquisition before and during intravenous contrast administration using a Christian multidete ctor CT scanner. Images were obtained before and during the dynamic p assage of intravenous contrast material. Multi-planar 3-D vol ume-rendering reconstruction was performed using an independent works tation interactively by the interpreting physician as well as the 3- D specialist for optimal visualisation of the thoracoabdominal ao rta, the pelvic arteries as well as its proximal branches. Please refer to the contrast sheet scann ed in the CrossCurrent system for the amount and route of contrast given. This exam was performed according to our departmental dose-optimisation programme, which inclu cassie automated exposure control, adjustment of the mA and/or kV according to patient size and/or use of iterative reconstruction t echnique. Dose modulation, iterative reconstruction, and/or weight based adjustment of the mA/kV was utilized to reduce the radiation dos e to as low as reasonably achievable. FINDINGS: VASCULAR: Pericardial effusion is noted, located p osterior to the right atrium. The central pulmonary arteries are meghan l in calibre. The cardiac chambers demonstrate normal atrioventricular and ventriculoarterial concordance, and syst emic and pulmonary venous return. The left ventricle is normal in size. Ev en in mid diastole, a degree of left ventricular hypertrophy is ident ified concentric. Correlate with echocardiography. Left atrial enlar gement is identified. Mitral annular calcification is identified in t he posterior mitral valve annulus. Coronary artery origins are normal. Diff use calcification identified in the LAD territory. Mild calcification seen in the LCx territory. Patient has a diagnosis of aortic stenos is. The aortic valve is tricuspid. The aortic Agatston score is 6340. The aortic valve area is 82 mm2. The location of aortic valvul ar calcification can be seen in reformatted data set sent to PACS. Regarding the aorta, there is no calcifi cation is seen in the aortic root/ascending thoracic aorta. The trans verse arch and descending thoracic aorta has mild scattered calcif ication identified. The abdominal aorta has moderate circumferen tial calcification present with associated noncalcific atherosclero sis, and there is likely a degree of atherosclerotic ulceration pratibha ntified, for example at image 397, representing a spectrum of underlyi ng atherosclerosis. No ectasia or aneurysmal dilation is identi fied. There is no evidence of acute aortic pat hology, specifically, there is no dissection, intramural hematoma, o r contained rupture. The arch vessel branching pattern is nor mal and the visualized arch vessels are widely patent proximally. Th e left subclavian artery, has noncalcific atherosclerosis identified a t image 45, with minimum luminal diameter of 5.9 x 7.6 mm in diam eter. At image 21, the minimum luminal diameter is approximatel y 6 to 7 mm. Minimal nonobstructive Consultation is seen at t he takeoff of the right subclavian artery, at image 22, it measu re 7 to 8 mm in diameter. There are single left and right renal ar teries are patent with nonobstructive calcification seen at the origin of the left and the right renal arteries. The coeliac axis, SMA, and BRIT are widely patent. The common iliac, external iliac, common femoral, and the visualised superficial femoral arteries, bilaterall y, are patent with no obstructive lesion identified. Scattered calcification is identified. See dimensions below for details. Dimensions that may be helpful for TAVR as follows: The aortic root/ascending thoracic aorta is essentially free of calcification. The major and minor aortic annulus diame ter measures 28.1 and 24.4 mm, respectively. The aortic annulus per imeter measured 84 mm and the cross-sectional area measures 552 mm2. T he aortic annulus diameter at the traditional LVOT and coronal LVOT me asures 21.6 and 25.7 mm, respectively. For reference purpose, per RANDHAWA S3 olimpia egan, recommendation are as follows: CT area between 273 to 345 mm2 (20 mm valve); 338 to 430 mm2 (23 mm valve); 430 to 546 mm2 (26 mm johnathon ve); 540 to 683 mm2 (29 mm valve). For reference purpose, per [employer] Gabino lut R madelyn, recommendation are as follows: CT perime ter between 56.5-62.8 mm (23 mm valve); 62.8-72.3 mm (26 mm valve); 7 2.3-81.7 mm (29 mm valve); and 81.7-94.2. mm (34 mm valve). For reference purpose, per Kathy Edge olimpia egan, recommendation are as follows: 23mm valve is recommended for C T perimeter between 62.8-72.3 mm; diameter between 20-23 mm; or area b etween 314-415.5 mm2. For 25mm valve, it is recommended for CT per imeter between 72.3-78.5 mm; diameter between 23-25 mm; or area betwe en 415.5-490.9 mm2. For 27mm valve, it is recommended for CT perimete r between 78.5-84.8 mm; diameter between 25-27 mm; or area betwe en 490.9-572.6 mm2. Agatston Score is 6340. The aortic valve area is 82 mm2. The distance between the take off of the RCA and the annulus (diastole): 13.0 mm The distance between the take off of the LM and the annulus (diastole): 15.5 mm The sinus of Valsalva diameter, RCC (chris stole): 34.0 mm The sinus of Valsalva diameter, LCC (chris stole): 37.5 mm The sinus of Valsalva diameter, NCC (chris stole): 35.7 mm The sinotubular junction measures, 28.6 x 32.4 mm. The aortic root angulation measures 45.5 degrees. The minimal and perpendicular abdominal aortic diameter measure 11.0 and 12.8 mm, respectively. There is no evidence of thoracoabdominal aortic aneurysm or stent placement present. The minimum and the perpendicular left c ommon iliac artery measures 7.6 and 8.7 mm, respectively with mild-t o-moderate tortuosity and mild calcific atherosclerosis present. The minimum and the perpendicular left external iliac artery measures 8.0 and 8.2 mm, respectively with mild tortuosity and n o calcific atherosclerosis present. The minimum and the perpendicul ar left femoral artery measures 7.0 and 7.4 mm, respectively wi th no tortuosity and minimal calcific atherosclerosis present. The minimum and the perpendicular right common iliac artery measures 6.5 and 8.6 mm, respectively with modera te tortuosity and mild calcific atherosclerosis present. The mi nimum and the perpendicular right external iliac artery measures 7. 5 and 7.7 mm, respectively with moderate tortuosity and mild calc ific atherosclerosis present. The minimum and the perpendicular right femoral artery measures 5.9 and 7.2 mm, respectively with mild tort uosity and mild calcific atherosclerosis present. NON-VASCULAR: The visualised thyroid gland is unremark able. The chest wall and mediastinum appear no rmal. A number of lymph nodes are identified, likely reactive in natur e, and some are calcified indicating prior granulomatous disease. In the lung windows, no endobronchial le giovanni is seen. Bibasal pleural effusions identified right greater than left, and at least moderate in nature in the right, with associated changes/consolidation identified. Pulmonary vasculature is pro minent suggesting a degree of cardiac congestion especially in the set ting of aortic stenosis. In addition, patchy groundglass opacities a re seen in the anterior aspect of both upper lobes likely as a r esult of underlying cardiac congestion, though atypical infection ca nnot be excluded. Correlate clinically. Calcified nodule is seen for example in the left lower lobe at image 153 indicating prior granulomatous disea se. Furthermore, in the left upper lobe, for example image 94, air space disease is identified. An addendum will be dictated thereafter. In the abdomen, the liver and spleen xavier ears unremarkable. The liver edge is smooth. No abnormal enhancing st ructure is identified. Calcified granuloma is identified in the liver and the spleen. Gallstone is seen in the gallbladder wit h no wall thickening identified. The adrenal glands could be minimally hypoplastic though no nodule is seen. The pancreas appears unremarkable. Bowel is not well assessed by CT angiogr aphy as enteric contrast is not given. No obvious bowel dilation is identified. The prostate is prominent with calcifica tion identified. The bladder is mildly distended. No free air or free fluid is identified in the abdomen and pelvis. No significant retroperitoneal adenopathy i s identified. No acute renal pathology seen and no hyd ronephrosis or perirenal fluid collection is identified. Note, in the outer aspect of the upper pole of the right kidney, image 34 9, hypodensity is seen with coarse calcification identified. At imag e 315, it measures 3.0 x 1.5 cm with height of 2.8 cm. It is difficul t to determine if any enhancement is present. An addendum will dictated thereafter, regarding optimal recommendation, likely include follow-up versus dedicated cross sectional imaging of the kidney. No acute bony pathology is seen. Mild a nterolisthesis identified at L4/L5 level. CONCLUSIONS: 1. Patient has a diagnosis of aortic s tenosis. The aortic valve is tricuspid. The aortic Agatston Score is over 6000, and aortic valve area is 82 mm2. Focal mitral annular darryl cification is identified anteriorly. No obvious calcification is seen in the aortic root/ascending thoracic aorta. Dimensions that may be helpful for TAVR as described above. Calcification is seen at the level of th e noncoronary cusp, and also immediately inferior to the noncoronary cusps at the aortic annular level. See reformatted data set for deta ils. 2. Coronary artery origins are normal a nd focal calcific lesion is identified in the LAD territory. A degree of concentric left ventricular hypertrophy is noted. 3. Bilateral pleural effusion right gre ater than left, at least moderate in nature in the right. Pulmonary vasculature is prominent sugge sting underlying cardiac congestion. Patchy groundglass opacities are seen especially in the upper lobe, likely as a sequelae of eliza estion, however, atypical infection cannot be excluded. Finally, focal airspace disease is ident ified in the left upper lobe, for example at image 94. An addendum dic tated thereafter. 4. Other findings as described above. 5. An addendum will be dictated regardi ng the non-vascular findings by the [employer] Radiologist. Signed: Gaudencio Valencia MD Report Verified Date/Time: 11/04/2019 0 9:18:32 Reading Location: [place] [address] [place] Reading Room Performing Organization Address City/State/Zipcode Phone Number [email or web address] CTA abdomen & pelvis (11/03/2019 12:30 AM CDT) Specimen Narrative Performed At Addendum Begins [facility] R[facility] REPORT STATUS:A I agree with the nonvascular findings as below: *Moderate sized left and large right ple ural effusions. *There is a centrally nonenhancing area in the right lower lobe with surrounding hypoenhancement. This is eit her due to a necrotic pneumonia or necrotic mass which measure s up to 8.6 cm. *There are several prominent and enlarge d mediastinal lymph nodes which could be reactive or metastatic. T he etiology of the right lower lobe hypoenhancing area. *There are interstitial and groundglass opacities of the both lungs which are indeterminate and could be due to infection. COVID pneumonia is in the differential.Per the electronic medical record, the COVID test was negative.If the p atient has ongoing symptoms, an additional test should be considered. *Cholelithiasis without acute cholecysti tis. *A right upper pole renal cyst measures 3.1 cm and has thick internal calcifications, Bosniak 2F. A follow-up CT of the abdomen with and without intravenous contrast, renal mass protocol, is recommended in six months to document stability. *Non-rotation of the bowel. *The prostate is enlarged with several i nternal calcifications. There may have been a prior TURP. *There is hyperenhancement of a short se gment of jejunum in the right upper quadrant from an indeterminate cau se. Enteritis is possible. This could be due to inflammation. Close attention on future follow-up examinations is recommended. Signed: Russ Gilbert MD Report Verified Date/Time:11/05/2019 11:32:40 Reading Location: [address] Radi[facility] y Reading Room Addendum Ends FINAL REPORT CT angiography of the thoracoabdominal a jono and pelvic arteries, 03-Nov-19 INDICATION: This is a 89 years old male, with a diagnosis of aortic stenosis, presents of preprocedure TAVR assessment. TECHNIQUE: Spiral acquisition before and during intravenous contrast administration using a Christian multidete ctor CT scanner. Images were obtained before and during the dynamic p assage of intravenous contrast material.Multi-planar 3-D v olume-rendering reconstruction was performed using an independent works tation interactively by the interpreting physician as well as the 3- D specialist for optimal visualisation of the thoracoabdominal ao rta, the pelvic arteries as well as its proximal branches. Please refer to the contrast sheet scann ed in the [employer] system for the amount and route of contrast given. This exam was performed according to our departmental dose-optimisation programme, which inclu cassie automated exposure control, adjustment of the mA and/or kV according to patient size and/or use of iterative reconstruction t echnique. Dose modulation, iterative reconstruction, and/or weight based adjustment of the mA/kV was utilized to reduce the radiation dos e to as low as reasonably achievable. FINDINGS: VASCULAR: Pericardial effusion is noted, located p osterior to the right atrium. The central pulmonary arteries are meghan l in calibre. The cardiac chambers demonstrate normal atrioventricular and ventriculoarterial concordance, and syst emic and pulmonary venous return. The left ventricle is normal in size. Ev en in mid diastole, a degree of left ventricular hypertrophy is ident ified concentric. Correlate with echocardiography. Left atrial enlar gement is identified. Mitral annular calcification is identified in t he posterior mitral valve annulus. Coronary artery origins are normal. Diff use calcification identified in the LAD territory. Mild calcification seen in the LCx territory. Patient has a diagnosis of aortic stenos is.The aortic valve is tricuspid. The aortic Agatston score is 6340.The aortic valve area is 82 mm2. The location of aortic valvul ar calcification can be seen in reformatted data set sent to PACS. Regarding the aorta, there is no calcifi cation is seen in the aortic root/ascending thoracic aorta. The trans verse arch and descending thoracic aorta has mild scattered calcif ication identified. The abdominal aorta has moderate circumferen tial calcification present with associated noncalcific atherosclero sis, and there is likely a degree of atherosclerotic ulceration pratibha ntified, for example at image 397, representing a spectrum of underlyi ng atherosclerosis. No ectasia or aneurysmal dilation is identi fied. There is no evidence of acute aortic pat hology, specifically, there is no dissection, intramural hematoma, o r contained rupture. The arch vessel branching pattern is nor mal and the visualized arch vessels are widely patent proximally. Th e left subclavian artery, has noncalcific atherosclerosis identified a t image 45, with minimum luminal diameter of 5.9 x 7.6 mm in diam eter. At image 21, the minimum luminal diameter is approximatel y 6 to 7 mm. Minimal nonobstructive Consultation is seen at t he takeoff of the right subclavian artery, at image 22, it measu re 7 to 8 mm in diameter. There are single left and right renal ar teries are patent with nonobstructive calcification seen at the origin of the left and the right renal arteries. The coeliac axis, SMA, and BRIT are widely patent. The common iliac, external iliac, common femoral, and the visualised superficial femoral arteries, bilaterall y, are patent with no obstructive lesion identified. Scattered calcification is identified. See dimensions below for details. Dimensions that may be helpful for TAVR as follows: The aortic root/ascending thoracic aorta is essentially free of calcification. The major and minor aortic annulus diame ter measures 28.1 and 24.4 mm, respectively. The aortic annulus per imeter measured 84 mm and the cross-sectional area measures 552 mm2. T he aortic annulus diameter at the traditional LVOT and coronal LVOT me asures 21.6 and 25.7 mm, respectively. For reference purpose, per RANDHAWA S3 br ochure, recommendation are as follows: CT area between 273 to 345 mm2 (20 mm valve); 338 to 430 mm2 (23 mm valve); 430 to 546 mm2 (26 mm johnathon ve); 540 to 683 mm2 (29 mm valve). For reference purpose, per [employer] Gabino blake joshi, recommendation are as follows: CT perime ter between 56.5-62.8 mm (23 mm valve); 62.8-72.3 mm (26 mm valve); 7 2.3-81.7 mm (29 mm valve); and 81.7-94.2. mm (34 mm valve). For reference purpose, per Kathyus Tate egan, recommendation are as follows: 23mm valve is recommended for C T perimeter between 62.8-72.3 mm; diameter between 20-23 mm; or area b etween 314-415.5 mm2. For 25mm valve, it is recommended for CT per imeter between 72.3-78.5 mm; diameter between 23-25 mm; or area betwe en 415.5-490.9 mm2.For 27mm valve, it is recommended for CT perimete r between 78.5-84.8 mm; diameter between 25-27 mm; or area betwe en 490.9-572.6 mm2. Agatston Score is 6340. The aortic valve area is 82 mm2. The distance between the take off of the RCA and the annulus (diastole): 13.0 mm The distance between the take off of the LM and the annulus (diastole): 15.5 mm The sinus of Valsalva diameter, RCC (chris stole): 34.0 mm The sinus of Valsalva diameter, LCC (chris stole): 37.5 mm The sinus of Valsalva diameter, NCC (chris stole): 35.7 mm The sinotubular junction measures, 28.6 x 32.4mm. The aortic root angulation measures 45.5 degrees. The minimal and perpendicular abdominal aortic diameter measure 11.0 and 12.8 mm, respectively. There is no evidence of thoracoabdominal aortic aneurysm or stent placement present. The minimum and the perpendicular left c ommon iliac artery measures 7.6 and 8.7 mm, respectively with mild-t o-moderatetortuosity and mildcalcific atherosclerosis present . The minimum and the perpendicular left external iliac artery measures 8.0 and 8.2 mm, respectively with mildtortuosity and nocalcific atherosclerosis present. The minimum and the perpendicul ar left femoral artery measures 7.0 and 7.4 mm, respectively with notortu osity and minimal calcific atherosclerosis present. The minimum and the perpendicular right common iliac artery measures 6.5 and 8.6 mm, respectively with modera tetortuosity and mild calcific atherosclerosis present. The mi nimum and the perpendicular rightexternal iliac artery measures 7.5 and 7.7 mm, respectively with moderatetortuosity and mildcalcific ather osclerosis present. The minimum and the perpendicular right femoral artery measures 5.9 and 7.2 mm, respectively with mildto rtuosity and mildcalcific atherosclerosis present. NON-VASCULAR: The visualised thyroid gland is unremark able. The chest wall and mediastinum appear no rmal. A number of lymph nodes are identified, likely reactive in natur e, and some are calcified indicating prior granulomatous disease. In the lung windows, no endobronchial le giovanni is seen. Bibasal pleural effusions identified right greater than left, and at least moderate in nature in the right, with associated changes/consolidation identified. Pulmonary vasculature is pro minent suggesting a degree of cardiac congestion especially in the set ting of aortic stenosis.In addition, patchy groundglass opacities a re seen in the anterior aspect of both upper lobes likely as a r esult of underlying cardiac congestion, though atypical infection ca nnot be excluded. Correlate clinically. Calcified nodule is seen for example in the left lower lobe at image 153 indicating prior granulomatous disea se. Furthermore, in the left upper lobe, for example image 94, air space disease is identified. An addendum will be dictated thereafter. In the abdomen, the liver and spleen xavier ears unremarkable. The liver edge is smooth. No abnormal enhancing st ructure is identified. Calcified granuloma is identified in the liver and the spleen. Gallstone is seen in the gallbladder wit h no wall thickening identified. The adrenal glands could be minimally hypoplastic though no nodule is seen. The pancreas appears unremarkable. Bowel is not well assessed by CT angiogr aphy as enteric contrast is not given. No obvious bowel dilation is identified. The prostate is prominent with calcifica tion identified. The bladder is mildly distended. No free air or free fluid is identified in the abdomen and pelvis. No significant retroperitoneal adenopathy i s identified. No acute renal pathology seen and no hyd ronephrosis or perirenal fluid collection is identified. Note, in the outer aspect of the upper pole of the right kidney, image 34 9, hypodensity is seen with coarse calcification identified. At imag e 315, it measures 3.0 x 1.5 cm with height of 2.8 cm. It is difficul t to determine if any enhancement is present. An addendum will dictated thereafter, regarding optimal recommendation, likely include follow-up versus dedicated cross sectional imaging of the kidney. No acute bony pathology is seen.Mild anterolisthesis identified at L4/L5 level. CONCLUSIONS: 1. Patient has a diagnosis of aortic stenosis. The aortic valve is tricuspid.The aortic Agatston Score is over 6000, and aortic valve area is 82 mm2. Focal mitral annular darryl cification is identified anteriorly. No obvious calcification is seen in the aortic root/ascending thoracic aorta. Dimensions that may be helpful for TAVR as described above. Calcification is seen at the level of th e noncoronary cusp, and also immediately inferior to the noncoronary cusps at the aortic annular level. See reformatted data set for deta ils. 2.Coronary artery origins are normal and focal calcific lesion is identified in the LAD territory. A degree of concentric left ventricular hypertrophy is noted. 3.Bilateral pleural effusion right g reater than left, at least moderate in nature in the right. Pulmonary vasculature is prominent sugge sting underlying cardiac congestion. Patchy groundglass opacities are seen especially in the upper lobe, likely as a sequelae of eliza estion, however, atypical infection cannot be excluded. Finally, focal airspace disease is ident ified in the left upper lobe, for example at image 94. An addendum dic tated thereafter. 4.Other findings as described above. 5.An addendum will be dictated regar ding the non-vascular findings by the [employer] Radiologist. Signed: Gaudencio Valencia MD Report Verified Date/Time:11/04/2019 09:18:32 Reading Location: [place] [address] [address] Reading Room Procedure Note Interface, External Ris In - 11/05/2019 11:34 AM CDT Addendum Begins REPORT STATUS:A I agree with the nonvascular findings as below: *Moderate sized left and large right ple ural effusions. *There is a centrally nonenhancing area in the right lower lobe with surrounding hypoenhancement. This is eit her due to a necrotic pneumonia or necrotic mass which measure s up to 8.6 cm. *There are several prominent and enlarge d mediastinal lymph nodes which could be reactive or metastatic. T he etiology of the right lower lobe hypoenhancing area. *There are interstitial and groundglass opacities of the both lungs which are indeterminate and could be due to infection. COVID pneumonia is in the differential. Per t he electronic medical record, the COVID test was negative. If the pat ient has ongoing symptoms, an additional test should be considered. *Cholelithiasis without acute cholecysti tis. *A right upper pole renal cyst measures 3.1 cm and has thick internal calcifications, Bosniak 2F. A follow-up CT of the abdomen with and without intravenous contrast, renal mass protocol, is recommended in six months to document stability. *Non-rotation of the bowel. *The prostate is enlarged with several i nternal calcifications. There may have been a prior TURP. *There is hyperenhancement of a short se gment of jejunum in the right upper quadrant from an indeterminate cau se. Enteritis is possible. This could be due to inflammation. Close attention on future follow-up examinations is recommended. Signed: Russ Gilbert MD Report Verified Date/Time: 11/05/2019 1 1:32:40 Reading Location: [address] [facility] Room Addendum Ends FINAL REPORT CT angiography of the thoracoabdominal a jono and pelvic arteries, 03-Nov-19 INDICATION: This is a 89 years old male, with a diagnosis of aortic stenosis, presents of preprocedure TAVR assessment. TECHNIQUE: Spiral acquisition before and during intravenous contrast administration using a Christian multidete ctor CT scanner. Images were obtained before and during the dynamic p assage of intravenous contrast material. Multi-planar 3-D vol ume-rendering reconstruction was performed using an independent works tation interactively by the interpreting physician as well as the 3- D specialist for optimal visualisation of the thoracoabdominal ao rta, the pelvic arteries as well as its proximal branches. Please refer to the contrast sheet scann ed in the EPIC system for the amount and route of contrast given. This exam was performed according to our departmental dose-optimisation programme, which inclu cassie automated exposure control, adjustment of the mA and/or kV according to patient size and/or use of iterative reconstruction t echnique. Dose modulation, iterative reconstruction, and/or weight based adjustment of the mA/kV was utilized to reduce the radiation dos e to as low as reasonably achievable. FINDINGS: VASCULAR: Pericardial effusion is noted, located p osterior to the right atrium. The central pulmonary arteries are meghan l in calibre. The cardiac chambers demonstrate normal atrioventricular and ventriculoarterial concordance, and syst emic and pulmonary venous return. The left ventricle is normal in size. Ev en in mid diastole, a degree of left ventricular hypertrophy is ident ified concentric. Correlate with echocardiography. Left atrial enlar gement is identified. Mitral annular calcification is identified in t he posterior mitral valve annulus. Coronary artery origins are normal. Diff use calcification identified in the LAD territory. Mild calcification seen in the LCx territory. Patient has a diagnosis of aortic stenos is. The aortic valve is tricuspid. The aortic Agatston score is 6340. The aortic valve area is 82 mm2. The location of aortic valvul ar calcification can be seen in reformatted data set sent to PACS. Regarding the aorta, there is no calcifi cation is seen in the aortic root/ascending thoracic aorta. The trans verse arch and descending thoracic aorta has mild scattered calcif ication identified. The abdominal aorta has moderate circumferen tial calcification present with associated noncalcific atherosclero sis, and there is likely a degree of atherosclerotic ulceration pratibha ntified, for example at image 397, representing a spectrum of underlyi ng atherosclerosis. No ectasia or aneurysmal dilation is identi fied. There is no evidence of acute aortic pat hology, specifically, there is no dissection, intramural hematoma, o r contained rupture. The arch vessel branching pattern is nor mal and the visualized arch vessels are widely patent proximally. Th e left subclavian artery, has noncalcific atherosclerosis identified a t image 45, with minimum luminal diameter of 5.9 x 7.6 mm in diam eter. At image 21, the minimum luminal diameter is approximatel y 6 to 7 mm. Minimal nonobstructive Consultation is seen at t he takeoff of the right subclavian artery, at image 22, it measu re 7 to 8 mm in diameter. There are single left and right renal ar teries are patent with nonobstructive calcification seen at the origin of the left and the right renal arteries. The coeliac axis, SMA, and BRIT are widely patent. The common iliac, external iliac, common femoral, and the visualised superficial femoral arteries, bilaterall y, are patent with no obstructive lesion identified. Scattered calcification is identified. See dimensions below for details. Dimensions that may be helpful for TAVR as follows: The aortic root/ascending thoracic aorta is essentially free of calcification. The major and minor aortic annulus diame ter measures 28.1 and 24.4 mm, respectively. The aortic annulus per imeter measured 84 mm and the cross-sectional area measures 552 mm2. T he aortic annulus diameter at the traditional LVOT and coronal LVOT me asures 21.6 and 25.7 mm, respectively. For reference purpose, per RANDHAWA S3 olimpia egan, recommendation are as follows: CT area between 273 to 345 mm2 (20 mm valve); 338 to 430 mm2 (23 mm valve); 430 to 546 mm2 (26 mm johnathon ve); 540 to 683 mm2 (29 mm valve). For reference purpose, per [employer] Gabino lut R estephaniachrajiv, recommendation are as follows: CT perime ter between 56.5-62.8 mm (23 mm valve); 62.8-72.3 mm (26 mm valve); 7 2.3-81.7 mm (29 mm valve); and 81.7-94.2. mm (34 mm valve). For reference purpose, per Kathy Tate egan, recommendation are as follows: 23mm valve is recommended for C T perimeter between 62.8-72.3 mm; diameter between 20-23 mm; or area b etween 314-415.5 mm2. For 25mm valve, it is recommended for CT per imeter between 72.3-78.5 mm; diameter between 23-25 mm; or area betwe en 415.5-490.9 mm2. For 27mm valve, it is recommended for CT perimete r between 78.5-84.8 mm; diameter between 25-27 mm; or area betwe en 490.9-572.6 mm2. Agatston Score is 6340. The aortic valve area is 82 mm2. The distance between the take off of the RCA and the annulus (diastole): 13.0 mm The distance between the take off of the LM and the annulus (diastole): 15.5 mm The sinus of Valsalva diameter, RCC (chris stole): 34.0 mm The sinus of Valsalva diameter, LCC (chris stole): 37.5 mm The sinus of Valsalva diameter, NCC (chris stole): 35.7 mm The sinotubular junction measures, 28.6 x 32.4 mm. The aortic root angulation measures 45.5 degrees. The minimal and perpendicular abdominal aortic diameter measure 11.0 and 12.8 mm, respectively. There is no evidence of thoracoabdominal aortic aneurysm or stent placement present. The minimum and the perpendicular left c ommon iliac artery measures 7.6 and 8.7 mm, respectively with mild-t o-moderate tortuosity and mild calcific atherosclerosis present. The minimum and the perpendicular left external iliac artery measures 8.0 and 8.2 mm, respectively with mild tortuosity and n o calcific atherosclerosis present. The minimum and the perpendicul ar left femoral artery measures 7.0 and 7.4 mm, respectively wi th no tortuosity and minimal calcific atherosclerosis present. The minimum and the perpendicular right common iliac artery measures 6.5 and 8.6 mm, respectively with modera te tortuosity and mild calcific atherosclerosis present. The mi nimum and the perpendicular right external iliac artery measures 7. 5 and 7.7 mm, respectively with moderate tortuosity and mild calc ific atherosclerosis present. The minimum and the perpendicular right femoral artery measures 5.9 and 7.2 mm, respectively with mild tort uosity and mild calcific atherosclerosis present. NON-VASCULAR: The visualised thyroid gland is unremark able. The chest wall and mediastinum appear no rmal. A number of lymph nodes are identified, likely reactive in natur e, and some are calcified indicating prior granulomatous disease. In the lung windows, no endobronchial le giovanni is seen. Bibasal pleural effusions identified right greater than left, and at least moderate in nature in the right, with associated changes/consolidation identified. Pulmonary vasculature is pro minent suggesting a degree of cardiac congestion especially in the set ting of aortic stenosis. In addition, patchy groundglass opacities a re seen in the anterior aspect of both upper lobes likely as a r esult of underlying cardiac congestion, though atypical infection ca nnot be excluded. Correlate clinically. Calcified nodule is seen for example in the left lower lobe at image 153 indicating prior granulomatous disea se. Furthermore, in the left upper lobe, for example image 94, air space disease is identified. An addendum will be dictated thereafter. In the abdomen, the liver and spleen xavier ears unremarkable. The liver edge is smooth. No abnormal enhancing st ructure is identified. Calcified granuloma is identified in the liver and the spleen. Gallstone is seen in the gallbladder wit h no wall thickening identified. The adrenal glands could be minimally hypoplastic though no nodule is seen. The pancreas appears unremarkable. Bowel is not well assessed by CT angiogr aphy as enteric contrast is not given. No obvious bowel dilation is identified. The prostate is prominent with calcifica tion identified. The bladder is mildly distended. No free air or free fluid is identified in the abdomen and pelvis. No significant retroperitoneal adenopathy i s identified. No acute renal pathology seen and no hyd ronephrosis or perirenal fluid collection is identified. Note, in the outer aspect of the upper pole of the right kidney, image 34 9, hypodensity is seen with coarse calcification identified. At imag e 315, it measures 3.0 x 1.5 cm with height of 2.8 cm. It is difficul t to determine if any enhancement is present. An addendum will dictated thereafter, regarding optimal recommendation, likely include follow-up versus dedicated cross sectional imaging of the kidney. No acute bony pathology is seen. Mild a nterolisthesis identified at L4/L5 level. CONCLUSIONS: 1. Patient has a diagnosis of aortic s tenosis. The aortic valve is tricuspid. The aortic Agatston Score is over 6000, and aortic valve area is 82 mm2. Focal mitral annular darryl cification is identified anteriorly. No obvious calcification is seen in the aortic root/ascending thoracic aorta. Dimensions that may be helpful for TAVR as described above. Calcification is seen at the level of th e noncoronary cusp, and also immediately inferior to the noncoronary cusps at the aortic annular level. See reformatted data set for deta ils. 2. Coronary artery origins are normal a nd focal calcific lesion is identified in the LAD territory. A degree of concentric left ventricular hypertrophy is noted. 3. Bilateral pleural effusion right gre ater than left, at least moderate in nature in the right. Pulmonary vasculature is prominent sugge sting underlying cardiac congestion. Patchy groundglass opacities are seen especially in the upper lobe, likely as a sequelae of eliza estion, however, atypical infection cannot be excluded. Finally, focal airspace disease is ident ified in the left upper lobe, for example at image 94. An addendum dic tated thereafter. 4. Other findings as described above. 5. An addendum will be dictated regardi ng the non-vascular findings by the [employer] Admin Radiologist. Signed: Gaudencio Valencia MD Report Verified Date/Time: 11/04/2019 0 9:18:32 Reading Location: [place] [address] [address] Reading Room Performing Organization Address City/State/Zipcode Phone Number [employer] ECG/EKG Interpretation (11/02/2019 11:37 PM CDT) Narrative Performed At Ciara Posadas MD 12:52 AM ECG/EKG Interpretation Date/Time: 11/03/2019 12:49 AM Performed by: Ciara Posadas MD Authorized by: Ciara Posadas MD The ECG was interpreted by ED physician. This ECG was compared with previous ECG(s).The ECG is interpreted as sinus tachyc ardia. Ectopy noted: atrial premature contractions. Rate is t achycardic. Abnormal conduction noted: left bundle branch block. ST segments normal. T-wave inversion in lead(s) I, II and aVF. Clinical Impression: abnormal ECGECG reviewed and does not meet STEMI criteria. CRITICAL CARE (11/02/2019 11:37 PM CDT) Narrative Performed At Ciara Posadas MD 12:52 AM Critical Care Performed by: Ciara Posadas MD Authorized by: Ciara Posadas MD Total critical care time: 35 minutes Critical care time was exclusive of sepa rately billable procedures and treating other patients. Critical care was necessary to treat or prevent imminent or life-threatening deterioration of the fo llowing conditions: cardiac failure, sepsis, circulatory failure and respiratory failure. Critical care was time spent personally by me on the f ollowing activities: development of treatment plan with patient or surrogat e, discussions with consultants, interpretation of cardiac output measurem ents, evaluation of patient's response to treatment, examination of patien t, obtaining history from patient or surrogate, ordering and performing treatments and interventions, ordering and review of la boratory studies, ordering and review of radiographic studies, pulse ox imetry and re-evaluation of patient's condition. Subsequent provider of critical care: I assumed direct ion of critical care for this patient from another provider o f my specialty. 2D Echo W/Doppler(CW/PW/Color) (11/02/2019 9:23 PM CDT) Ejection Fraction [facility] Specimen Narrative Performed At Transthoracic Echocardiography Report (T TE) 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 Clinical History HGB 13.7 HCT 42.2 % known severe as, htn, cva, chf Contrast Medium: Definity. Amount - 3 ml Height: 68.5 inches Weight: 68.04 kg (150 lbs) BSA: 1.82 m^2 BMI: 22.48 kg/m^2 HR: 80 bpm BP: 96/58 mmHg Summary 1. The left ventricle is chamber size (by vol index) is moderately enlarged. Normal LV wall thickness. All of the LV segments are moderately hypokinetic. LVEF by Munson's method of disk assessment is moderately reduce(35 -39%). LA size is severely enlarged (> 48 ml/m2) . 2. The right ventricular chamber size and systolic function are within normal limits. RA cavity size is normal. Estimated peak systolic PA pressure is 40-45 mmHg (mild pulmonary hypertension) . 3. Severe aortic stenosis. AoV area at rest by continuity equation is in the range of 0.73 cm2. AoV resting Peak/Mean Gradient 64/36mmHg. AoV resting dimensionless obstructive index (DOI)- 0.23. Severe AoV cusp calcification. A trace of aortic regurg itation. Previous Study No prior exam available for comparison. Signature Findings Technical Quality: Technically difficult exam. Left Ventricle The left ventricle is chamber size (by vol index) is moderately enlarged (male - LVED vol 90 -100ml.m2) . No rmal LV wall thickness. Al l of the LV segments are moderately hypo kinetic . Gl obal LV systolic function moderately red uced . Th e LVEF was measured using Munson's bi-p urmila me thod of disk . LV EF by Munson's method of disk assessmen t is mo derately reduce(35 -39%) . LV endocardium is adequately visualized wit h IV ul trasound enhancing agent. Left AtriumLA size is severely enlarged (>48 ml/m2) . Right VentricleThe right ventricular chamber size and systolic fu nction are within normal limits. Right Atrium RA cavity size is normal . Aortic Valve Severe AoV cusp calcification. A trace of aortic regurgitation. Se tamara aortic stenosis. Ao V area at rest by continuity equation is in the ra nge of 0.73 cm2. Ao V resting Peak/Mean Gradient 64/36mmHg. Ao V resting dimensionless obstructive inde x (DOI)- 0. 23. Mitral Valve Mild MV leaflet calcification. Mi ld mitral annular calcification. Mi ld mitral regurgitation. Tricuspid ValveMild TV leaflet thickening. Mi ld tricuspid regurgitation. Es timated peak systolic PA pressure is 40- 45 mmHg (m ild pulmonary hypertension) . Pulmonic Valve Mild PV leaflet thickening. No rmal PV structure and function by limite d views an d Doppler. AortaAortic root size (SInus of Valsalva diameter) i s no rmal . PericardiumNo significant pericardial effusion is visualized ba sed on available views. IVC/SVC/PA/PV/PleuralThe estimated RA pressure by IVC dynamics 5-10mmHg . Chambers/Structures Left Atrium LA Volume: 92.67 ml LA Vol. Index: 51 ml/m^2 Left Ventricle LVIDd: 5.3 cm LV Septum Diastolic: 0.99 cm LV PW Diastolic: 1.13 cm LVEDV Munson's:159.46 ml LVESV Munson's:99.17 ml LVEF Munson's: 37 %L VEDVI: 88 ml/m^2 LVESVI: 54 ml/m^2 LVOT Diameter: 1.99 cm Right Atrium RA Vol. (Sngl Plane): 4 4.47 ml Right Ventricle TAPSE: 1.41 cm Aorta Ao Root S of Johnathon.: 3.24 cm Doppler/Quantitative Measurements Aortic Valve Peak Velocity: 3.99 m/sMean Velocity: 3 m/s Peak Gradient: 63.68 mmHgMean Gradient: 36 mmHg AV Area (continuity): 0.73 cm^2 AV VTI: 99 cm AV DVI: 0.23 LVOT Peak Velocity: 1.05 m/s Peak Gradient: 4.4 mmHg Mean Velocity: 0.72 m/s Mean Gradient: 2.56 mmHg LVOT Diameter: 1.99 cmLVOT VTI: 23.2 cm LVOT Area: 3.11 cm^2LVOT SV:72.12 ml LVOT CO: 5.77 l/min LVOT CI: 3.17 l/min/m^2 Tricuspid Valve TR Velocity: 2.97 m/s TR Gradient: 35.2 mmHg Procedure Note Interface, External Ris In - 11/03/2019 7:25 PM CDT Transthoracic Echocardiography Report (TTE) Demographics Patient Name ARTHUR NUNEZ Date of Study 11/02/2019 Gende r Male Visit Number [id number] Race Unknown Room Number [id number] Number Date of 1930 Refer ring Physician Gabriel Streeter MD Age 89 year(s) 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 Clinical History HGB 13.7 HCT 42.2 % known severe as, htn, cva, chf Contrast Medium: Definity. Amount - 3 ml Height: 68.5 inches Weight: 68.04 kg (15 0 lbs) BSA: 1.82 m^2 BMI: 22.48 kg/m^2 HR: 80 bpm BP: 96/58 mmHg Summary 1. The left ventricle is chamber size ( by vol index) is moderately enlarged. Normal LV wall thickness. All of the LV segments are moderately hypokinetic. LVEF by Munson's method o f disk assessment is moderately reduce(35 -39%). LA size is severely en larged (> 48 ml/m2) . 2. The right ventricular chamber size a nd systolic function are within normal limits. RA cavity size is normal . Estimated peak systolic PA pressure is 40-45 mmHg (mild pulmonary hypertension) . 3. Severe aortic stenosis. AoV area at rest by continuity equation is in the range of 0.73 cm2. AoV resting Peak /Mean Gradient 64/36mmHg. AoV resting dimensionless obstructive i ndex (DOI)- 0.23. Severe AoV cusp calcification. A trace of aortic regurg itation. Previous Study No prior exam available for comparison. Signature Findings Technical Quality: Technically difficult exam. Left Ventricle The left ventric le is chamber size (by vol index) is moderately en larged (male - LVED vol 90-100ml.m2) . Normal LV wall t hickness. All of the LV se gments are moderately hypokinetic . Global LV systol ic function moderately reduced . The LVEF was jazmine sured using Munson's bi-plane method of disk . LVEF by Munson' s method of disk assessment is moderately reduc e(35 -39%) . LV endocardium i s adequately visualized with IV ultrasound enhan cing agent. Left Atrium LA size is sever ramirez enlarged (>48 ml/m2) . Right Ventricle The right ventri cular chamber size and systolic function are wit hin normal limits. Right Atrium RA cavity size i s normal . Aortic Valve Severe AoV cusp calcification. A trace of aorti c regurgitation. Severe aortic st enosis. AoV area at rest by continuity equation is in the range of 0.73 cm 2. AoV resting Peak /Mean Gradient 64/36mmHg. AoV resting dime nsionless obstructive index (DOI)- 0.23. Mitral Valve Mild MV leaflet calcification. Mild mitral ashley lar calcification. Mild mitral regu rgitation. Tricuspid Valve Mild TV leaflet thickening. Mild tricuspid r egurgitation. Estimated peak s ystolic PA pressure is 40-45 mmHg (mild pulmonary hypertension) . Pulmonic Valve Mild PV leaflet thickening. Normal PV struct ure and function by limited views and Doppler. Aorta Aortic root size (SInus of Valsalva diameter) is normal . Pericardium No significant p ericardial effusion is visualized based on availab le views. IVC/SVC/PA/PV/Pleural The estimated RA pressure by IVC dynamics 5-10mmHg . Chambers/Structures Left Atrium LA Volume: 92.67 ml LA Vol. Index: 51 ml/m^2 Left Ventricle LVIDd: 5.3 cm LV Septum Diastolic: 0.99 cm LV PW Diastolic: 1.13 cm LVEDV Munson's:159.46 ml LVESV Munson's:99.17 ml LVEF Munson's: 37 % LVEDVI: 88 ml/m^2 LVESVI: 54 ml/m^2 LVOT Diameter: 1.99 cm Right Atrium RA Vol. (Sngl Plane): 44.47 ml Right Ventricle TAPSE: 1.41 cm Aorta Ao Root S of Johnathon.: 3.24 cm Doppler/Quantitative Measurements Aortic Valve Peak Velocity: 3.99 m/s Mean Velocity: 3 m/s Peak Gradient: 63.68 mmHg Mean Gradient: 36 mmHg AV Area (continuity): 0.73 cm^2 AV VTI: 99 cm AV DVI: 0.23 LVOT Peak Velocity: 1.05 m/s Pea k Gradient: 4.4 mmHg Mean Velocity: 0.72 m/s Jazmine n Gradient: 2.56 mmHg LVOT Diameter: 1.99 cm LVO T VTI: 23.2 cm LVOT Area: 3.11 cm^2 LVO T SV:72.12 ml LVOT CO: 5.77 l/min LVO T CI: 3.17 l/min/m^2 Tricuspid Valve TR Velocity: 2.97 m/s TR Gradient: 35.2 mmHg Performing Organization Address City/State/Zipcode Phone Number [facility] SARS-CoV2/RT-PCR (Symptomatic ONLY) (11/02/2019 7:49 PM CDT) SARS-COV2/RT-PCR Not Detected Not Detected, Negative [facility] SARS-COV-2 PERFORMING LAB [facility] Specimen Other Narrative Performed At Negative results do not preclude SARS-CoV-2 [facility] infection and should not be used as the sole basis for patient management decisions. Negative results must be combined with clinical observations, patient history, and epidemiological information. A false negative result may occur if a specimen is improperly collected, transported or handled. The limit of detection for this assay is 250 copies/mL. This SARS CoV-2 test is a rapid, real-time RT-PCR test intended for the qualitative detection of nucleic acid from SARS-CoV-2 in a nasopharyngeal swab specimen collected from individuals suspected of COVID-19 by their healthcare provider. This test has not been Food and Drug Administration (FDA) cleared or approved and has been authorized by FDA under an Emergency Use Authorization (EUA). This EUA will be effective until the declaration that circumstances exist justifying the authorization of the emergency use of in vitro diagnostic tests for detection and/or diagnosis of COVID-19 is terminated under Section 564(b)(2) of the Act or the EUA is revoked under Section 564(g) of the Act. Fact Sheet for Healthcare Providers: https://www.[employer]/Documents/Xpert%20Xpre ss%20SARS%20CoV-2/Fact%20Sheets/3023802%20SAR S-COV-2%20HEALTHCARE%20PROVIDERS%20FACT%20SHEE T.pdf Fact Sheet for Healthcare Patients: https://www.[employer]/Documents/Xpert%20Xpre ss%20SARS%20CoV-2/Fact%20Sheets/3023801%20SAR S-COV-2%20PATIENT%20FACT%20SHEET.pdf Performing Laboratory: [place] [address] Performing Organization Address City/State/Zipcode Phone Number [place] [phone] CENTER Manual Differential (11/02/2019 7:45 PM CDT) % Neutros 99 % [facility] % Monos 1 % [facility] # Neutros 35.64 (H) 1.78 - 5.38 K/ul [facility] # Monos 0.36 0.30 - 0.82 K/uL [facility] Total Counted 100 [facility] WBC Morph[facility] Normal [facility] Platelet Morph[facility] Normal [facility] Polychromasia 1+ few [facility] An[facility]ocytosis 1+ few [facility] Microcytes 1+ few [facility] Macrocytes 1+ few [facility] Poikilocytes 2+ moderate [facility] Rimrock Cells 1+ few [facility] Platelet Conc Adequate [facility] Specimen Blood Narrative Performed At Gate Mortiser Operator ID - Judy Rajesh [facility] User comments: Slide comments: Performing Organization Address [facility]/Zipcode Phone Number [address] [address] CENTER B-type Natriuretic Factor (BNP) (11/02/2019 7:45 PM CDT) BNP 1,394 (H) 0 - 100 pg/mL [facility] Specimen Blood Narrative Performed At Gate Mortiser Operator ID - ALEXA [facility] Performing Organization Address City/[facility]/Zipcode Phone Number [address] [address] [place] Respiratory Panel [facility] (11/02/2019 7:24 PM CDT) Human Metapneumovirus Not detected Not detected, [facility] [employer] [facility] Rhinovirus Not detected Not detected, [facility] [employer] [facility] Influenza A Not detected Not detected, [facility] [employer] [facility] INFLUENZA A (NO SUBTYPE) [facility] Influenza A subtype H1 [facility] Influenza A Subtype H3 [facility] Influenza A Subtype H1-2009 [facility] Influenza B Not detected Not detected, [facility] Respiratory Syncytial Virus Not detected Not detected, [facility] [employer] [facility] Parainfluenza Virus 1 Not detected Not detected, [facility] [employer] [facility] Parainfluenza Virus 2 Not detected Not detected, [facility] [employer] [facility] Parainfluenza virus 3 Not detected Not detected, [facility] [employer] [facility] Parainfluenza Virus 4 Not detected Not detected, [facility] [employer] [facility] Adenovirus Not detected Not detected, [facility] [employer] [facility] Coronavirus 229E Not detected Not detected, [facility] [employer] [facility] Coronavirus HKU1 Not detected Not detected, [facility] [employer] [facility] Coronavirus NL63 Not detected Not detected, [facility] [employer] [facility] Coronavirus OC43 Not detected Not detected, [facility] [employer] [facility] Bordetella Pertussis Not detected Not detected, [facility] [employer] [facility] Chlamydophila Pneumoniae Not detected Not detected, [facility] [employer] [facility] Mycoplasma Pneumoniae Not detected Not detected, [facility] [employer]ocal [facility] Specimen Nasopharyngeal Narrative Performed At Other viruses and bacteria not targeted by [facility] this PCR panel cannot be excluded; therefore clinical correlation and follow up of serology, culture results, and other molecular studies is required. The results are not intended to be used as the sole means for clinical diagnosis or patient management decisions. This sample was tested at the [facility] Molecular Diagnostics Laboratory using the [employer] FilmArray Respiratory Panel. It is FDA cleared and has been verified and approved by the [facility] Molecular Diagnostics Laboratory for clinical use on nasopharyngeal swab specimens. The performance of the FilmArray RP has not been established in individuals who received influenza vaccine.Recent administration of a nasal influenza vaccine may cause false positive results for Influenza A and/or Influenza B. Performing Organization Address City/State/Zipcode Phone Number [facility] [address] [place] [address] CENTER ECG 12 lead (11/02/2019 7:05 PM CDT) Specimen Narrative Performed At Ventricular Rate 93 BPM GE MUSE Atrial Rate 93 BPM P-R Interval 158 ms QRS Duration 148 ms Q-T Interval 424 ms QTC Calculation(Bazett) 527 ms P Norton 54 degrees R Norton 2 degrees T Norton 153 degrees Sinus rhythm with Premature supraventric ular complexes Left bundle branch block Abnormal ECG No previous ECGs available Confirmed by Lufschanowski, MD, Lee ([id number]) on 11/03 5:03:32 PM Procedure Note Interface, External Ris In - 11/04/2019 5:03 PM CDT Ventricular Rate 93 BPM Atrial Rate 93 BPM P-R Interval 158 ms QRS Duration 148 ms Q-T Interval 424 ms QTC Calculation(Bazett) 527 ms P Norton 54 degrees R Norton 2 degrees T Norton 153 degrees Sinus rhythm with Premature supraventric ular complexes Left bundle branch block Abnormal ECG No previous ECGs available Confirmed by MD Anderson Roberto ([id number]) on 11/04/2019 5:03:32 PM Performing Organization Address City/State/Zipcode Phone Number GE MUSE after 12/01/2018 Insurance Payer Benefit Plan / Group Subscriber ID Type Phone A ddress [facility] [facility] [employer] HMO xxxxxxxxx MEDICARE MGD CARE CDCREVIEW CDCREVIEW xxxxxxxx [place] [address] Advance Directives For more information, please contact:[address] [phone] Code Status Date Activated Date Inactivated Comments Full Code 11/15/2019 3:09 PM 11/23/2019 5:51 PM This code status was determined by: Patient Full Code 11/02/2019 8:35 PM 11/15/2019 3:09 PM This code status was determined by: Patient
--- OUTSIDE RECORDS SUMMARY | 2019-12-02 11:33 | XMS REPORT | Continuity of Care Document ---
:1930 Author Organization [facility] t Address [address] [place] [address] Karan. [address] [place] [address] Care Team Providers Name Role Phone Adrian Almanza DO Primary Care Physician Monica ESQUEDA Attending Clinician MAUREEN MCCRAY Attending Clinician Unavailable Maureen Mccray MD Attending Clinician Leigh Posadas MD Attending Clinician Divya ESQUEDA, In Attending Clinician Malik Field MD Attending Clinician Rosa Mcgill MD Attending Clinician Janice OROZCO Attending Clinician Unavailable Iftikhar Pereira MD Attending Clinician Bryant ESQUEDA Attending Clinician Val Vaughan MD Attending Clinician Shashank Nguyen MD Attending Clinician Leighton Santiago MD Attending Clinician Jackson Attending Clinician Unavailable Nellie Ortiz MD Attending Clinician Catracho ESQUEDA Attending Clinician MONICA Admitting Clinician Unavailable Payers Payer Name Policy Policy Effective Expiration Source Type Number Date Date [facility] - MEDICARE xxxxxxxxx ELIZABETH Sims MGD CAREUNITED MEDICARE L ukes - HMOxxxxxxxxx [facility] CDCREVIEWCDCREVIEWxxxxxxxxPO [place] [address] [facility] UHC MEDICAREUHC MEDICARE xxxxxxxxx 2018 Shah HMO/PPOxxxxxxxxx2018-Presen 00:00:00 [facility] Melodie Problems Condition Condition Condition Status Onset Resolution Last Treating Co mments Source Name Details Category Date Date Treatment Clinician Date S/P TAVR S/P TAVR Disease [facility]transcath 6-15 Sravani kes - eter eter 00:00: Medical aortic aortic 00 Center valve valve replacemen replacemen t) t) Paroxysmal Paroxysmal Disease Active [facility] SVT SVT 6-15 [facility] - (supravent (supravent 00:00: Me dical ricular ricular 00 Center tachycardi tachycardi a) a) 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 00:00: Medica l 00 Center 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:00: Medi darryl of lung of lung 00 Center 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 0-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 jesus (valve) (valve) 00:00: st stenosis stenosis 00 Hypertensi Hypertensi Disease Active 2015-[address] ve heart ve heart 0-13 [facility] - disease disease 00:00: Medical without without 00 Center heart heart failure failure Acute Acute Disease Resolve 2019-11-19 2019-11-[address] respirator respirator d 6-15 00:00:00 13:42:57 [facility] - y failure y failure 00:00: Medi darryl with with 00 Center hypoxia hypoxia Cardiogeni Cardiogeni Disease Resolve 2019-11-19 2019-11-[address] c shock c shock d 5-29 00:00:00 13:42:09 [facility] - 00:00: Medical 00 Center Allergies, Adverse Reactions, Alerts Allergy Allergy Status Severity Reaction(s) Onset Inactive Treating Comm ents Source Name Type Date Date Clinician Clopidog Propensi Active Other (See Clots and [facility] rel ty to Comments) 11-01 bleeding [facility] - adverse 00:00: per pt's Medical reaction 00 Center s Family History Family Member Diagnosis Comments Start Date Stop Date Source Family member Coronary artery disease [facility] Family member Stroke [facility] Social History Social Habit Start Date Stop Date Quantity Comments Source History SDFL [facility] - Alcohol Std Drinks Med[facility] History SDOH [facility] - Alcohol Binge Medical [facility] Sex [facility]igned [facility] History SDOH 2019-11-02 2019-11-[address] [facility] - Alcohol Frequency 00:00:00 00:00:00 [facility] Alcohol intake 2018-12-20 2018-12-20 Current [facility] thodist 00:00:00 00:00:00 non-drinker of alcohol (finding) Smoking Status Start Date Stop Date Source Never smoker [facility] edical Strum Medications Ordered Filled Start Stop Current Ordering Indication Dosage Frequency Signature Comments Components Source Medication Medication Date Date Medication? Clinician (SIG) Name Name bumetanide 2020- Yes 1mg QD Take [address] (BUMEX) 1 6-19 06-19 tablet (1 [facility] - MG tablet 00:00: 23:59 mg total) Me dical 00 :00 by mouth Center daily. clopidogreL 2019- Yes 75mg QD Take [address] (PLAVIX) 75 6-19 08-06 tablet (75 L ukes - mg tablet 00:00: 23:59 mg total) Me dical 00 :00 by mouth Center daily for 48 days. AVODART 0.[address] mg capsule 5-27 [facility] - 00:00: Medical 00 [place] furosemide 2020- No [facility] (LASIX) 20 5-25 06-19 [facility] - MG tablet 00:00: 00:00 Medical 00 :00 Strum metoprolol Yes TAKE 1 [place] succinate 1-17 TABLET BY Metho di XL 00:00: MOUTH st (TOPROL-XL) 00 DAILY 25 mg 24 hr tablet metoprolol 2019- No TAKE [address] [facility] succinate 1-15 06-17 TABLET BY Luke [facility] - (TOPROL-XL) 00:00: 00:00 MOUTH Medi darryl 25 MG 24 hr 00 :00 DAILY Center tablet metoprolol 2020- No TAKE 1 [place] succinate 14 06-22 TABLET BY Meth jesus XL 00:00: 00:[address] (TOPROL-XL) 00 :00 DAILY 25 mg 24 hr tablet AVODART 0.5 2015-06 Yes QD daily. [place] mg capsule 06-20 Methodi 00:00: st 00 ramipril 2015-06 Yes QD daily. Pablo (ALTACE) 10 [facility]i MG capsule 00:00: st 00 Vital Signs Vital Name Observation Time Observation Value Comments Source Systolic blood 2019-11-23 11:50:00 109 mm[Hg] [facility] Diastolic blood 2019-11-23 11:50:00 53 mm[Hg] [facility] Heart rate 2019-11-23 11:50:00 70 /min [facility] Body temperature 2019-11-23 11:50:00 36.61 Iliana [facility] Respiratory rate 2019-11-23 11:50:00 17 /min [facility] Oxygen saturation in 2019-11-23 11:50:00 99 /min [facility] Arterial blood by Medical Ce nter Pulse oximetry Body weight Measured 2019-11-23 06:31:00 55.792 kg [facility] BMI 2019-11-23 06:31:00 18.70 kg/m2 [facility] Body height 2019-11-03 03:16:00 172.7 cm [facility] Systolic blood 2018-12-20 14:26:00 120 mm[Hg] [facility] pressure Diastolic blood 2018-12-20 14:26:00 68 mm[Hg] [facility] pressure Heart rate 2018-12-20 14:26:00 69 /min [facility] Body height 2018-12-20 14:26:00 172.7 cm [facility] Body weight 2018-12-20 14:26:00 77.021 kg [facility] BMI 2018-12-20 14:26:00 25.82 kg/m2 Pablo Cuevas Procedures Procedure Date / Time Performing Clinician Source Performed ARRYTHMIA IMPLANT REPORT - 2019-11-27 08:21:23 Provider, [facility] RHYTHM STRIP - SCAN 2019-11-27 08:21:00 Provider, [facility] CARDIAC CATH REPORT - SCAN 2019-11-27 08:20:58 Provider, [facility] CARDIAC CATH REPORT - SCAN 2019-11-27 08:20:57 Provider, [facility] UROLOGY REPORT - SCAN 2019-11-27 08:20:54 Provider, [facility] BASIC METABOLIC PANEL (7) 2019-11-23 04:50:00 LazarusYoly [facility] MAGNESIUM 2019-11-23 04:50:[address] [facility] PHOSPHORUS 2019-11-23 04:50:00 Lazarus, [facility] PLATELET AGGREGATION: 2019-11-23 04:50:[address] [facility] FUNCTION SCREEN [facility] XR CHEST 1 VIEW 2019-11-22 09:12:00 Lazarus, [facility] PORTABLE/BEDSIDE [facility] BASIC METABOLIC PANEL (7) 2019-11-22 04:23:00 LazarusYoly underwood [facility] MAGNESIUM 2019-11-22 04:23:00 [facility] PHOSPHORUS 2019-11-22 04:23:00 Lazarus, [facility] CBC W/PLT COUNT & AUTO 2019-11-22 04:23:00 Lazarus, [facility] ARRYTHMIA IMPLANT REPORT - 2019-11-21 14:41:20 Provider, [facility] LIMITED 2D ECHOCARDIOGRAM 2019-11-21 10:16:19 Gabriel Streeter [facility] XR CHEST 1 VIEW 2019-11-21 08:40:00 Lazarus [facility] PORTABLE/BEDSIDE [facility] BASIC METABOLIC PANEL (7) 2019-11-21 04:57:00 LazarusYoly underwood [facility] MAGNESIUM 2019-11-21 04:57:[address] [facility] PHOSPHORUS 2019-11-21 04:57:00 Lazarus, [facility] CBC W/PLT COUNT & AUTO 2019-11-21 04:57:00 Lazarus, [facility] BASIC METABOLIC PANEL (7) 2019-11-20 04:33:00 LazarusYoly [facility] MAGNESIUM 2019-11-20 04:33:00 Lazarus, [facility] PHOSPHORUS 2019-11-20 04:33:00 Lazarus, [facility] CBC W/PLT COUNT & AUTO 2019-11-20 04:33:00 Lazarus, [facility] XR CHEST 1 VIEW 2019-11-20 01:46:00 Lazarus, [facility] BASIC METABOLIC PANEL (7) 2019-11-19 03:17:00 LazarusYoly [facility] MAGNESIUM 2019-11-19 03:17:[address] [facility] PHOSPHORUS 2019-11-19 03:17:00 Lazarus, [facility] CBC W/PLT COUNT & AUTO 2019-11-19 03:17:[address] [facility] XR CHEST 1 VIEW 2019-11-19 02:12:00 Lazarus [facility] HEMOGLOBIN AND HEMATOCRIT 2019-11-18 22:07:00 Ryan Good [facility] BASIC METABOLIC PANEL (7) 2019-11-18 04:11:00 Lazarus Yoly [facility] MAGNESIUM 2019-11-18 04:11:00 Lazarus, [facility] PHOSPHORUS 2019-11-18 04:11:00 Lazarus, [facility] CBC W/PLT COUNT & AUTO 2019-11-18 04:11:00 Lazarus, [facility] XR CHEST 1 VIEW 2019-11-18 01:48:00 Lazarus, [facility]/BEDSIDE [facility] HEMOGLOBIN AND HEMATOCRIT 2019-11-17 18:00:00 Jerry Milton [facility] BASIC METABOLIC PANEL (7) 2019-11-17 18:00:00 Jacy Mejia [facility] MAGNESIUM 2019-11-17 18:00:00 Jacy Mejia [facility] HEMOGLOBIN AND HEMATOCRIT 2019-11-17 12:13:00 Jerry Milton [facility] PLASMA FREE HEMOGLOBIN 2019-11-17 12:13:00 Karine Jerry [facility] XR CHEST 1 VIEW 2019-11-17 04:43:00 Lazarus [facility] PORTABLE/BEDSIDE [facility] BASIC METABOLIC PANEL (7) 2019-11-17 03:22:00 [facility]UM 2019-11-17 03:22:[address] [facility] PHOSPHORUS 2019-11-17 03:22:[address] [facility] CBC W/PLT COUNT & AUTO 2019-11-17 03:22:[address] [facility] TRANSFUSION SERVICE REPORT 2019-11-16 18:02:27 ProviderLuz [facility] - SCAN [facility] XR CHEST 1 VIEW 2019-11-16 17:46:00 Viviane Hager [facility] CYTOLOGY 2019-11-16 17:02:[address] [facility] US THORACENTESIS 2019-11-16 17:00:00 Lazarus [facility] RHYTHM STRIP - SCAN 2019-11-16 15:40:23 ProviderLuz [facility] PT/APTT 2019-11-16 11:45:[address] [facility] PROTHROMBIN TIME/INR 2019-11-16 11:45:[address] [facility] 2D ECHO W/ DOPPLER 2019-11-16 10:23:38 Alexander Munson [facility] (CW/PW/COLOR) [facility] HEMOGLOBIN AND HEMATOCRIT 2019-11-16 09:39:00 Breanna Silva [facility] RETICULOCYTE COUNT 2019-11-16 09:39:00 Lazarus, [facility] HAPTOGLOBIN 2019-11-16 09:35:00 Lazarus, [facility] BLOOD GAS, ARTERIAL 2019-11-16 04:30:00 Roberto, [facility] XR CHEST 1 VIEW 2019-11-16 04:14:00 Lazarus, [facility] PORTABLE/BEDSIDE [facility] BASIC METABOLIC PANEL (7) 2019-11-16 02:44:00 Lazarus, [facility] 2019-11-16 02:44:00 Lazarus, [facility] PHOSPHORUS 2019-11-16 02:44:00 Lazarus, [facility] LACTATE DEHYDROGENASE 2019-11-16 02:44:00 Lazarus, [facility] (LDH) [facility] CBC W/PLT COUNT & AUTO 2019-11-16 02:44:00 Lazarus, [facility] BLOOD GAS, ARTERIAL 2019-11-16 00:18:00 KarenHenry [facility] BLOOD GAS, ARTERIAL 2019-11-15 22:12:00 Roberto, [facility] MAGNESIUM 2019-11-15 16:47:00 Roberto, [facility] COMPREHENSIVE METABOLIC 2019-11-15 16:47:00 Roberto, [facility] XR CHEST 1 VIEW 2019-11-15 16:46:00 Roberto, [facility] PORTABLE/BEDSIDE [facility] BLOOD GAS, ARTERIAL 2019-11-15 16:45:00 Roberto, [facility] CBC W/PLT COUNT & AUTO 2019-11-15 16:43:00 Roberto, [facility] PREPARE RBC 2019-11-15 16:14:00 Alexander Munson [facility] POCT-ACT 2019-11-15 13:54:00 Mayela Field [facility] CALCIUM, IONIZED 2019-11-15 13:28:50 Tate Pereira [facility] BLOOD GAS, ARTERIAL 2019-11-15 13:28:50 Tate Pereira [facility] SODIUM NA-STAT LAB 2019-11-15 13:28:50 Tate Pereira [facility] POTASSIUM-STAT LAB 2019-11-15 13:28:50 Tate Pereira [facility] GLUCOSE-STAT LAB 2019-11-15 13:28:50 Tate Pereira [facility] HGB/HCT (H&H) - STAT LAB 2019-11-15 13:28:50 Tate Pereira [facility] POCT-GLUCOSE METER 2019-11-15 11:59:00 Mayela Field [facility] TRANSESOPHAGEAL ECHO 2019-11-15 10:49:52 Bryant [facility] COLOR-FLOW MAPPING 2019-11-15 10:33:26 Bryant [facility] CONT WAVE PULSED DOPPLER 2019-11-15 10:33:26 Bryant [facility] TAVR / ROMARIO MCR - IP 2019-11-15 09:37:00 Bryant [facility] - PROC ONLY Medical Center LEADLESS PACEMAKER 2019-11-15 09:37:00 Alexander Munson [facility] INSERTION [facility] XR CHEST 1 VIEW 2019-11-15 03:58:00 [facility] BASIC METABOLIC PANEL (7) 2019-11-15 03:26:00 Yoly Qiu [facility] MAGNESIUM 2019-11-15 03:26:00 LazarusYoly underwood [facility] PHOSPHORUS 2019-11-15 03:26:00 LazarusYoly underwood [facility] APTT 2019-11-15 03:26:00 Ciara Posadas [facility] CBC W/PLT COUNT & AUTO 2019-11-15 03:26:00 Lazarus, [facility] XR CHEST 1 VIEW 2019-11-14 22:58:00 Laura Pavon [facility] - PORTABLE/BEDSIDE [facility] CBC W/PLT COUNT & AUTO 2019-11-14 22:49:00 Laura Pavon [facility] TRANSFUSION SERVICE REPORT 2019-11-14 18:11:32 Luz Mullen [facility] - SCAN Scanning [facility] BASIC METABOLIC PANEL (7) 2019-11-14 05:29:00 LazarusYoly [facility] MAGNESIUM 2019-11-14 05:29:00 [facility] PHOSPHORUS 2019-11-14 05:29:00 Lazarus, [facility] APTT 2019-11-14 05:29:00 Ciara Posadas Leigh [facility] CBC W/PLT COUNT & AUTO 2019-11-14 05:29:00 Lazarus, [facility] XR CHEST 1 VIEW 2019-11-14 04:22:00 Lazarus, [facility] PORTABLE/BEDSIDE [facility] APTT 2019-11-14 00:51:00 Ciara Posadas Leigh [facility] APTT 2019-11-13 17:23:00 Ciara Posadas Leigh [facility] BLOOD CULTURE 2019-11-13 16:08:00 Mando Garcia [facility] URINALYSIS W/ REFLEX URINE 2019-11-13 12:05:00 Yoly Qiu [facility] APTT 2019-11-13 11:04:00 Ciara Posaads Leigh [facility] TYPE AND SCREEN, AUTOMATED 2019-11-13 11:04:00 Alexander Munson [facility] BASIC METABOLIC PANEL (7) 2019-11-13 04:34:00 LazarusYoly [facility] MAGNESIUM 2019-11-13 04:34:00 Lazarus, Yoly [facility] PHOSPHORUS 2019-11-13 04:34:00 [facility] HEPATIC FUNCTION PANEL 2019-11-13 04:34:00 Lazarus [facility] CALCIUM, IONIZED 2019-11-13 04:34:00 Lazarus, [facility] APTT 2019-11-13 04:34:00 Ciara Posadas [facility] CBC W/PLT COUNT & AUTO 2019-11-13 04:34:00 Lazarus, [facility] APTT 2019-11-12 20:00:00 Sheila oPsadashryn [facility] BASIC METABOLIC PANEL (7) 2019-11-12 16:56:00 [facility] AP[facility] 2019-11-12 12:39:00 Ciara Posadas [facility] BASIC METABOLIC PANEL (7) 2019-11-12 05:06:00 LazarusYoly underwood [facility] MAGNESIUM 2019-11-12 05:06:00 [facility]Harsh [facility] PHOSPHORUS 2019-11-12 05:06:00 Lazarus, [facility] APTT 2019-11-12 05:06:00 Ciara Posadas [facility] HEPATIC FUNCTION PANEL 2019-11-12 05:06:00 Lazarus, [facility] CBC W/PLT COUNT & AUTO 2019-11-12 05:06:00 Lazarus, [facility] APTT 2019-11-11 21:02:00 Ciara Posadas [facility] CYTOLOGY 2019-11-11 17:22:00 Lazarus, [facility] BODY FLUID CELL COUNT WITH 2019-11-11 13:09:00 Yoly Qiu [facility] APTT 2019-11-11 13:09:00 Lazarus, [facility] XR CHEST 1 VIEW 2019-11-11 11:40:00 L[facility]Harsh [facility] US THORACENTESIS 2019-11-11 11:27:00 Tom Stokes In [facility] XR CHEST 1 VIEW 2019-11-11 08:51:00 Lazarus, [facility]/BEDSIDE [facility] BASIC METABOLIC PANEL (7) 2019-11-11 05:11:00 Lazarus Yoly SHRESTHA I [facility] MAGNESIUM 2019-11-11 05:11:00 LazarusYoly [facility] PHOSPHORUS 2019-11-11 05:11:00 LazarusYoly underwood [facility] CBC W/PLT COUNT & AUTO 2019-11-11 05:11:00 Lazarus, [facility] POCT-GLUCOSE METER 2019-11-10 11:52:00 DivyaCaitlynyasmine In [facility] POTASSIUM 2019-11-10 10:34:00 Laura Pavon [facility] MAGNESIUM 2019-11-10 10:34:00 LibradoLaura [facility] POCT-GLUCOSE METER 2019-11-10 07:46:00 Mayela Field [facility] POCT-GLUCOSE METER 2019-11-10 07:29:00 Mayela Field [facility] BASIC METABOLIC PANEL (7) 2019-11-10 03:51:00 LazarusYoly underwood [facility] MAGNESIUM 2019-11-10 03:51:00 LazarusYoly underwood [facility] PHOSPHORUS 2019-11-10 03:51:00 [facility]Harsh [facility] PROTHROMBIN TIME/INR 2019-11-10 03:51:00 Jacy Mejia [facility] CBC W/PLT COUNT & AUTO 2019-11-10 03:51:00 LazarusYoly underwood [facility] POCT-GLUCOSE METER 2019-11-09 22:19:00 Mayela Field [facility] INTRAOPERATIVE PATH REPORT 2019-11-09 15:11:08 Luz Mullen [facility] - - SCAN Scanning [facility] POCT-GLUCOSE METER 2019-11-09 11:38:00 Mayela Field [facility] XR CHEST 1 VIEW 2019-11-09 11:16:00 Jacy Mejia [facility] PORTABLE/BEDSIDE Medical Center BASIC METABOLIC PANEL (7) 2019-11-09 04:51:00 LazarusYoly underwood [facility] MAGNESIUM 2019-11-09 04:51:00 LazarusYoly [facility] PHOSPHORUS 2019-11-09 04:51:00 Lazarus, [facility] CBC W/PLT COUNT & AUTO 2019-11-09 04:51:00 Lazarus, [facility] POCT-GLUCOSE METER 2019-11-08 22:05:00 Tom Stokes In [facility] OXYGEN SATURATION, 2019-11-08 21:46:[address] [facility] LACTIC ACID, VENOUS 2019-11-08 21:46:00 Laura Pavon [facility] TRANSFUSION SERVICE REPORT 2019-11-08 17:51:58 Provider, Default [facility] - - SCAN [facility] POCT-GLUCOSE METER 2019-11-08 17:20:00 Tom Stokes In [facility] PULMONARY FUNCTION - SCAN 2019-11-08 14:30:05 Provider, Default [facility] POCT-GLUCOSE METER 2019-11-08 11:16:00 Tom Stokes In [facility] POCT-GLUCOSE METER 2019-11-08 07:36:00 Tom Stokes In [facility] BASIC METABOLIC PANEL (7) 2019-11-08 03:24:00 LazarusYoly underwood I [facility] MAGNESIUM 2019-11-08 03:24:00 LazarusYoly [facility] PHOSPHORUS 2019-11-08 03:24:00 Lazarus, [facility] CBC W/PLT COUNT & AUTO 2019-11-08 03:24:00 Lazarus, [facility] REPORT OF PROCEDURE - 2019-11-07 16:40:28 Luis Alberto Santiago [facility] ENDOSCOPY [facility] EBUS FNA REQUEST 2019-11-07 16:11:18 Luis Alberto Santiago [facility] EBUS FNA REQUEST 2019-11-07 16:11:05 Pamela[facility] FINE NEEDLE ASPIRATE BY 2019-11-07 16:11:00 [facility] 2019-11-07 16:04:53 Luis Alberto Santiago [facility] FINE NEEDLE ASPIRATE BY 2019-11-07 16:04:00 Luis Alberto Santiago [facility] TISSUE EXAM 2019-11-07 15:42:55 Luis Alberto Santiago [facility] BRONCHOSCOPY,ENDOBRONCHIAL 2019-11-07 14:00:00 Luis Alberto Santiago [facility] ULTRASOUND (EBUS) [facility] TRANSTRACH/ TRANSBRONCH SAMPLING BRONCHOSCOPY,BRONCHIAL 2019-11-07 14:00:00 [facility] ALVEOLAR LAVAGE [facility] ABORH, MANUAL 2019-11-07 08:19:00 Kaylie Dunlap [facility] CBC (HEMOGRAM ONLY) 2019-11-07 05:26:00 Yo Gonzalez [facility] COMPREHENSIVE METABOLIC 2019-11-07 05:26:00 Luis Alberto Santiago [facility] PROTHROMBIN TIME/INR 2019-11-07 05:26:00 Pamela [facility] APTT 2019-11-07 05:26:00 Pamela [facility] MAGNESIUM 2019-11-07 05:26:00 Sergei Schwarz [facility] TYPE AND SCREEN, AUTOMATED 2019-11-07 05:26:00 Luis Alberto Snatiago [facility] CBC W/PLT COUNT & AUTO 2019-11-07 05:26:00 Luis Alberto Santiago [facility] XR CHEST 1 VIEW 2019-11-06 17:38:00 Yoly Qiu [facility] PORTABLE/BEDSIDE Medical Center POCT-GLUCOSE METER 2019-11-06 17:15:00 Gabriel Streeter [facility] CT CHEST WITHOUT IV 2019-11-06 16:11:00 Gabriel Streeter [facility] SPIROMETRY 2019-11-06 14:45:00 Alexander Munson [facility] BASIC METABOLIC PANEL (7) 2019-11-06 13:23:00 Breanna Silva [facility] MAGNESIUM 2019-11-06 13:23:00 Breanna Silva [facility] POCT-GLUCOSE METER 2019-11-06 11:38:00 Gabriel Streeter [facility] POCT-GLUCOSE METER 2019-11-06 07:29:00 [facility] VANCOMYCIN LEVEL, TROUGH 2019-11-06 03:40:00 Evette Thrasher [facility] CBC (HEMOGRAM ONLY) 2019-11-06 03:40:00 Yo Gonzalez [facility] BASIC METABOLIC PANEL (7) 2019-11-06 03:40:00 Breanna Silva [facility] MAGNESIUM 2019-11-06 03:40:00 [facility] 2019-11-06 03:39:00 Elkin Jarquin [facility] S [facility] - PORTABLE/BEDSIDE [facility] CT BRAIN WITHOUT IV 2019-11-05 23:18:00 Alexander Munson [facility] POCT-GLUCOSE METER 2019-11-05 18:24:00 [facility] REPORT OF PROCEDURE - 2019-11-05 15:50:38 Provider, Luz [facility] - ENDOSCOPY [facility] CATH / CORONARY 2019-11-05 13:30:00 Gabriel Streeter [facility]GIOS (+/- LV[facility] CAROTID DOPPLER BILATERAL 2019-11-05 12:38:00 Gabriel Streeter [facility] BASIC METABOLIC PANEL (7) 2019-11-05 12:03:00 Breanna Silva [facility] MAGNESIUM 2019-11-05 12:03:00 [facility] POCT-GLUCOSE METER 2019-11-05 11:32:00 [facility] POCT-GLUCOSE METER 2019-11-05 07:14:00 [facility] CBC (HEMOGRAM ONLY) 2019-11-05 04:16:00 [facility] 2019-11-05 04:16:00 [facility] BASIC [facility]OLIC PANEL (7) 2019-11-05 04:16:00 Ricardo Breanna [facility] MAGNESIUM 2019-11-05 04:16:00 Ricardo [facility] BASIC METABOLIC PANEL (7) 2019-11-04 20:50:00 Ricardo Breanna [facility] MAGNESIUM 2019-11-04 20:50:00 Ricardo [facility] POCT-GLUCOSE METER 2019-11-04 16:56:00 [facility] BASIC METABOLIC PANEL (7) 2019-11-04 13:36:00 Ricardo Breanna [facility] MAGNESIUM 2019-11-04 13:36:00 Ricardo [facility] POCT-GLUCOSE METER 2019-11-04 11:55:00 [facility] POCT-GLUCOSE METER 2019-11-04 07:30:00 [facility] MAGNESIUM 2019-11-04 02:39:00 Ricardo [facility] BASIC METABOLIC PANEL (7) 2019-11-04 02:39:00 RicardoBreanna [facility] CBC (HEMOGRAM ONLY) 2019-11-04 02:39:00 [facility] XR CHEST 1 VIEW 2019-11-04 01:03:00 Ricardo [facility] POCT-GLUCOSE METER 2019-11-03 22:24:00 [facility] LACTATE DEHYDROGENASE 2019-11-03 19:12:00 [facility]ew [facility] (LD), PLEURAL FLUID Medical [facility] er BODY FLUID CULTURE + GRAM 2019-11-03 16:44:00 [facility] GLUCOSE PLEURAL FLUID 2019-11-03 16:44:00 [facility] FUNGUS CULTURE + SMEAR 2019-11-03 16:44:00 [facility] CYTOLOGY 2019-11-03 16:44:00 [facility] PROTEIN, TOTAL, PLEURAL 2019-11-03 16:43:00 [facility] XR CHEST 1 VIEW 2019-11-03 16:40:00 Russ Gilbert [facility] US THORACENTESIS 2019-11-03 16:35:00 [facility] BLOOD CULTURE 2019-11-03 12:31:00 Ricardo [facility] MRSA SCREEN 2019-11-03 12:14:00 Ricardo, [facility] ASPERGILLUS GALACTOMANNAN 2019-11-03 12:10:00 [facility] FUNGAL PANEL 2019-11-03 12:09:00 Ricardo, [facility] BLOOD CULTURE 2019-11-03 12:07:00 Ricardo, [facility] MISCELLANEOUS LAB ORDER 2019-11-03 12:07:00 Ricardo [facility] POCT-GLUCOSE METER 2019-11-03 10:33:00 [facility] STREP PNEUMONIAE ANTIGEN 2019-11-03 09:58:00 Ricardo [facility] LEGIONELLA URINE ANTIGEN 2019-11-03 09:57:00 Ricardo [facility] HISTOPLASMA ANTIGEN, URINE 2019-11-03 09:15:00 Breanna Silva [facility] CORTISOL 2019-11-03 08:46:00 Ricardo [facility] TSH/FREE T4 IF INDICATED 2019-11-03 08:46:00 Ricardo, [facility] PROCALCITONIN 2019-11-03 08:46:00 [facility] HEMOGLOBIN A1C 2019-11-03 08:46:00 [facility] T4, FREE 2019-11-03 08:46:00 Ricardo [facility] XR CHEST 1 VIEW 2019-11-03 08:11:00 Ricardo [facility] LACTIC ACID, VENOUS 2019-11-03 07:46:00 [facility] BASIC METABOLIC PANEL (7) 2019-11-03 07:45:00 Ricardo [facility] HEPATIC FUNCTION PANEL 2019-11-03 07:45:00 [facility] CBC (HEMOGRAM ONLY) 2019-11-03 06:11:00 Ciara Posadas [facility] BLOOD GAS, ARTERIAL 2019-11-03 01:27:00 Ciara Posadas [facility] TROPONIN I 2019-11-03 01:24:00 Ciara Posadas [facility] VENOUS DOPPLER LEGS 2019-11-03 01:04:00 Ciara Posadas [facility] CTA ABDOMEN & PELVIS 2019-11-03 00:30:00 [facility] CTA CHEST 2019-11-03 00:30:00 Zenon [facility] TROPONIN I 2019-11-02 23:45:00 Ciara Posadas [facility] CRITICAL CARE 2019-11-02 23:37:13 Ciara Posadas [facility] ED ECG INTERPRETATION 2019-11-02 23:37:13 Ciara Posadas [facility] 2D ECHO W/ DOPPLER 2019-11-02 21:23:00 Hermelin, [facility] (CW/PW/COLOR) [facility] BLOOD GAS, ARTERIAL 2019-11-02 20:56:00 Ciara Posadas [facility] URINALYSIS W/ REFLEX URINE 2019-11-02 20:56:[address] [facility] SARS-COV2/RT-PCR ([facility] & 2019-11-02 19:49:00 Ciara Posadas [facility] - REF LABS) [facility] TROPONIN I 2019-11-02 19:45:00 Ciara Posadas [facility] BASIC METABOLIC PANEL (7) 2019-11-02 19:45:00 Ciara Posadas [facility] PT/APTT 2019-11-02 19:45:00 Ciara Posadas [facility] HEPATIC FUNCTION PANEL 2019-11-02 19:45:00 Ciara Posadas [facility] B-TYPE NATRIURETIC FACTOR 2019-11-02 19:45:00 Ciara Posadas [facility] (BNP) [facility] LACTIC ACID, VENOUS 2019-11-02 19:45:00 Ciara Posadas [facility] APTT 2019-11-02 19:45:00 Ciara Posadas [facility] CBC W/PLT COUNT & AUTO 2019-11-02 19:45:00 Ciara Posadas [facility] (CELLAVISION MANUAL DIFF) 2019-11-02 19:45:00 Ciara Posadas [facility] XR CHEST 1 VIEW 2019-11-02 19:33:00 Ciara Posadas [facility] PORTABLE/BEDSIDE [facility] RESPIRATORY PANEL [facility] 2019-11-02 19:24:00 Danial Ortega [facility] ECG 12-LEAD 2019-11-02 19:05:06 Ciara Posadas [facility] Plan of Care Planned Activity Planned Date Details Comments Source Future Scheduled 2020-02-05 INFLUENZA VACCINE [facility] Test 00:00:00 (Season Ended) [code = Medic al Center INFLUENZA VACCINE (Season Ended)] Future Scheduled 2020-01-05 INFLU[place]ZA VACCINE [place] Test 00:00:00 [code = INFLUENZA VACCINE] Future Scheduled 2019-06-06 Medicare IPPE (WELCOME C [facility] - Test 00:00:00 TO MEDICARE) [code = Medical Center Medicare IPPE (WELCOME TO MEDICARE)] Future Scheduled 1995 65+ PNEUMOCOCCAL [facility] Test 00:00:00 VACCINE (1 of 2 - PCV13) [code = 65+ PNEUMOCOCCAL VACCINE (1 of 2 - PCV13)] Future Scheduled 1997 PNEUMOCOCCAL [address]+ [facility] - Test 00:00:00 LOW/MEDIUM RISK (1 of Medica l Center 2 - PCV13) [code = PNEUMOCOCCAL 65+ LOW/MEDIUM RISK (1 of 2 - PCV13)] Future Scheduled 1980 SHINGLES VACCINES (#1) [place] [facility] Test 00:00:00 [code = SHINGLES VACCINES (#1)] Results Test Description Test Test Comments Results Result Sour e Time Comments U/S, THORACENTESIS 2019-11- Laterality?->Right FINAL REPORT 19 Reason for PATIENT ID: 17:34:[id number] exam:->Recurrent [id number] Exam: Plueral Ultrasound guided effusionShould thoracentesis this be performed Clinical History: at the Right-sided bedside?->YesLabs Pleural Effusion to be Manager It Security: Ordered:->Cytology Viviane Hager, Labs to be PA-C Supervising Ordered:->Body Physician: Maureen Fluid Culture MD Monae (w/Gram Stain, Consent: Benefits C\\T\\S) and risks were explained to the patient who gave consent to the procedure. Complication: None Immediate Procedure: The patient was placed in sitting position. The right posterior chest was prepped and draped in usual sterile fashion. 2% lidocaine was used as local anesthetic. Under ultrasound guidance, a thoracentesis catheter was inserted into the pleural cavity. Approximately 1100 cc of clear yellow pleural fluid was aspirated. The catheter was removed. The specimen was sent to the laboratory for further analysis. The patient tolerated the procedure well without any adverse reaction. A STAT chest x-ray was ordered. The patient left the department in stable condition. Impression: Ultrasound guided right sided thoracentesis. Signed: Maureen Fan MDReport Verified Date/Time: 11/23/2019 17:34:12 Reading Location: [facility] [id number] Ultrasound Reading Room thoracentesis , [place] [address] External [facility] - 17:34:00 11/23/2019 5:36 Medical PM CDTFINAL REPORT Center Exam: Ultrasound guided thoracentesis Clinical History: Right-sided Pleural Effusion Manager It Security: Viviane Hager PA-C Supervising Physician: Maureen Fan MD Consent: Benefits and risks were explained to the patient who gave consent to the procedure. Complication: None Immediate Procedure: The patient was placed in sitting position. The right posterior chest was prepped and draped in usual sterile fashion. 2% lidocaine was used as local anesthetic. Under ultrasound guidance, a thoracentesis catheter was inserted into the pleural cavity. Approximately 1100 cc of clear yellow pleural fluid was aspirated. The catheter was removed. The specimen was sent to the laboratory for further analysis. The patient tolerated the procedure well without any adverse reaction. A STAT chest x-ray was ordered. The patient left the department in stable condition. Impression: Ultrasound guided right sided thoracentesis. Signed: Maureen Fan Verified Date/Time: 11/23/2019 17:34:12 Reading Location: [place] [id number] Ultrasound Reading Room Platelet Aggregation: Function Screen 2019-11-23 15:57:00 Test Item Value Reference Range Interpretation Comme nts Pathologist: (test code = 2622) Abdirashid Montes M.D. (electonic signature) Platelets (test code = 2656) 198 150- 450 K/CU MM ADP (test code = 39304-6) 71 % 62-100 Platelet Rich Plasma (test code = 268 200- 300 k/cu mm 2134) Plt. Function Screen Normal aggregation results Interpretation (test code = 4655) with ADP. No evidence of platelet dysfunction or P2Y12 inhibitor effect. FAIZA (test code = FAIZA) Platelet Function Screen results may be falsely low with platelet counts<75,000/cu mm.Software Controls Engineer ID - [id number] [facility] FUNCTION [id number] 15:57:00 Test Item Value Reference Range Interpretation Comments [id number] Abdirashid Montes M.D. (BEAKER) (test code = (electonic signature) 9317) PLATELET COUNT AGG 198 K/CU MM 150-450 (BEAKER) (test code = 2656) ADP (BEAKER) (test code 71 % 62-100 = 4654) PLATELET RICH 268 k/cu mm 200-300 PLASMA(BEAKER) (test code = 2134) PLATELET FUNCTION SCREEN Normal aggregation INTERPRETATION (BEAKER) results with ADP. No (test code = 4655) evidence of platelet dysfunction or P2Y12 inhibitor effect. Platelet Function Screen results may be falsely low with platelet counts<75,000/cu mm.Software Controls Engineer ID- [id number] Metabolic [id number] 06:39:00 Test Item Value Reference Range Interpretation Comments Sodium (test code = 134 meq/L 136-145 L 2951-2) Potassium (test code = 3.4 meq/L 3.5-5.1 L 2823-3) Chloride (test code = 96 meq/L 98-107 L 2075-0) CO2 (test code = 31 meq/L 22-29 H 2028-9) BUN (test code = 25 mg/dL 7-21 H 3094-0) Creatinine (test code 0.92 mg/dL 0.57-1.25 = 2160-0) Glucose (test code = 104 mg/dL 70-105 2345-7) Calcium (test code = 8.3 mg/dL 8.4-10.2 L 76043-9) EGFR (test code = 78 mL/min/1.73 [place] [address]-4) NOT ACCURATE CREATININE CLEARANCE IN PREDICTING GLOMERULAR FILTRATION RATE . ESTIMATED GFR I S NOT APPLICABLE FOR DIALYSIS PATIENTS. FAIZA (test code = FAIZA) Software Controls Engineer ID - RUFUS M Lab Interpretation Abnormal (test code = 81098-4) [facility] 06[facility]39:00 Test Item Value Reference Range Interpretation Comments Magnesium (test code = 2.1 mg/dL 1.6-2.6 38870-9) FAIZA (test code = FAIZA) Software Controls Engineer ID - RUFUS M Lab Interpretation (test Normal code = 19298-3) [facility] 06:39:00 Test Item Value Reference Range Interpretation Comments Phosphorus (test code = 3.2 mg/dL 2.3-4.7 2777-1) FAIZA (test code = FAIZA) Software Controls Engineer ID - RUFUS M Lab Interpretation (test Normal code = 57832-0) [facility] 06:39:00 Test Item Value Reference Range Interpretation Comments PHOSPHORUS (BEAKER) (test code = 3.2 mg/dL 2.3-4.7 604) Software Controls Engineer ID - RUFUS [id number] 06:39:00 Test Item Value Reference Range Interpretation Comments MAGNESIUM (BEAKER) (test code = 2.1 mg/dL 1.6-2.6 627) Software Controls Engineer ID - RUFUS MBASIC METABOLIC [id number] 06:39:00 Test Item Value Reference Range Interpretation Comments SODIUM (BEAKER) 134 meq/L 136-145 L (test code = 381) POTASSIUM (BEAKER) 3.4 meq/L 3.5-5.1 L (test code = 379) CHLORIDE (BEAKER) 96 meq/L 98-107 L (test code = 382) CO2 (BEAKER) (test 31 meq/L 22-29 H code = 355) BLOOD UREA NITROGEN 25 mg/dL 7-21 H (BEAKER) (test code = 354) CREATININE (BEAKER) 0.92 mg/dL 0.57-1.25 (test code = 358) GLUCOSE RANDOM 104 mg/dL 70-105 (BEAKER) (test code = 652) CALCIUM (BEAKER) 8.3 mg/dL 8.4-10.2 L (test code = 697) EGFR (BEAKER) (test 78 mL/min/1.73 ESTIMA MANDO GFR IS code = 1092) sq m NOT ACCURATE CREATININE CLEARANCE IN PREDICTING GLOMERULAR FILTRATION RATE . ESTIMATED GFR I S NOT APPLICABLE FOR DIALYSIS PATIEN TS. Software Controls Engineer ID - RUFUS MLimited 2D [id number] 12:09:11Ejection FractionSLEH ECHO HEARTLAB MKCKESSON CPACSInterface, External Ris In - 11/22/2019 12:09 PM CDTTransthoracic Echocardiography Report (TTE) Demographics Patient Name ARTHUR NUNEZ Date of Study 11/21/2019 Gender Male Visit Number [id number] Race Unknown Room Number 1426 Number Date of 1930 Referring Physician Gabriel Streeter MD Age 89 year(s) Check Weigher Jose Fuentes [employer] Valarie Liz, Interpreting Gabriel Streeter MD [facility] Physician Procedure Type of Study TTE procedure:LIMITED 2D ECHOCARDIOGRAM (BELLA) Indications:LV function evaluation.Clinical HistoryHGB 10.6HCT 33.1 %CHFHTNTAVRR& L CATH CORONARY ANGIOContrast Medium: Definity.Height: 68.5 inches Weight: 68.04 kg (150 lbs) BSA: 1.82 m^2 BMI: 22.48kg/m^2HR: 70 bpm BP: 98/53 mmHg Summary 1. Theleft ventricle is chamber size (by vol index) is normal. Mild septal hypertrophy is present.All of the LV segments are mildly hypokinetic. LVEF by Munson's method of disk assessment is mildly reduced (40-44%). LA size is normal (16-34 ml/m2). 2. The right ventricular chamber size and systolic function are within normal limits. RA size is normal. Estimated peak systolic PA pressure is 20-25 mmHg (normal range). 3. 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 Prosthetic AoV regurgitaton is trivial. Previous Study Compared to the previous study the current study was done off inotropes with mildly reduced LVEF. Signature ---- Findings Technical Quality: Technically adequate exam. Left Ventricle LV endocardium is adequately visualized with IV ultrasound enhancing agent. The left ventricle is chamber size (by vol index) is normal (male - LVED vol - 34-74ml/m2). Mild septal hypertrophy is present. All of the LV segments are mildly hypokinetic. Global LV systolic function mildly reduced. LVEF by Munson's method of disk assessment is mildly reduced (40-44%) . Left Atrium LA size is normal (16-34 ml/m2) . Right Ventricle The right ventricular chamber size and systolic function are within normal limits. Right Atrium RA size is normal. 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 Prosthetic AoV regurgitaton is trivial . Mitral Valve Mild MV leaflet thickening. Trace mitral regurgitation. Tricuspid Valve TV structureis normal. Trace tricuspid regurgitation. Estimated peak systolic PA pressure is 20-25 mmHg (normal range) . Pulmonic ValvePV is not visualized. Aorta Aortic root size (SInus of Valsalva diameter) is indeterminate (not well seen) . Pericardium No pericardial effusion is visualized. IVC/SVC/PA/PV/Pleural The estimated RA pressure [...] TR Velocity: 2.23 m/s TR Gradient: 19.88 [facility]CH[facility]oreRAD, CHEST, 1 VIEW, NON DEPT 2019-11-22 11:14:00Reason for exam:->RLL Carcinoma, frequent pleural effusion.Should this be performed at the bedside?->YesFINAL REPORT CLINICAL HISTORY: RLL Carcinoma, frequent pleural effusion. TECHN IQUE: 1 view of the chest. COMPARISON: 11/21/2019 IMPRESSION: The right PICC line is unchanged. Rightmid and lower lung pleural parenchymal opacity appears increased in prominence. The left lung remains well-aerated. The cardiomediastinal silhouette is magnified by technique. Signed: Abdullahi Penn MDReport Verified Date/Time: 11/22/2019 11:14:15 Reading Location: [facility] Radiology Reading Room XR chest 1 view portable / [id number] 11:14:00 Interface, External Ris In - 11/22/2019 11:16 AM CDTFINAL REPORT CLINICAL HISTORY: RLL Carcinoma, frequent pleural effusion. TECHNIQUE: 1 view of the chest. COMPARISON: 11/21/2019IMPRESSION: The right PICC line is unchanged. Right mid and lower lung pleural parenchymal opacity appears increased in prominence. The left lung remains well-aerated. The cardiomediastinal silhouette is magnified by technique. Signed: Abdullahi Penneport Verified Date/Time: 11/22/2019 11:14:15 Reading Location: [facility] Radiology Reading Room [facility] 05:13:00 Test Item Value Reference Range Interpretation Comments PHOSPHORUS (BEAKER) (test code = 3.4 mg/dL 2.3-4.7 604) Software Controls Engineer ID - PIAYA [id number] 05:13:00 Test Item Value Reference Range Interpretation Comments MAGNESIUM (BEAKER) (test code = 2.2 mg/dL 1.6-2.6 627) Software Controls Engineer ID - PIAYA LBASIC METABOLIC [id number] 05:13:00 Test Item Value Reference Range Interpretation Comments SODIUM (BEAKER) 135 meq/L 136-145 L (test code = 381) POTASSIUM (BEAKER) 3.6 meq/L 3.5-5.1 (test code = 379) CHLORIDE (BEAKER) 98 meq/L 98-107 (test code = 382) CO2 (BEAKER) (test 29 meq/L 22-29 code = 355) BLOOD UREA NITROGEN 29 mg/dL 7-21 H (BEAKER) (test code = 354) CREATININE (BEAKER) 1.06 mg/dL 0.57-1.25 (test code = 358) GLUCOSE RANDOM 113 mg/dL 70-105 H (BEAKER) (test code = 652) CALCIUM (BEAKER) 8.1 mg/dL 8.4-10.2 L (test code = 697) EGFR (BEAKER) (test 66 mL/min/1.73 ESTIMA MANDO GFR IS code = 1092) sq m NOT ACCURATE CREATININE CLEARANCE IN PREDICTING GLOMERULAR FILTRATION RATE . ESTIMATED GFR I S NOT APPLICABLE FOR DIALYSIS PATIEN TS. Software Controls Engineer ID - PIAYA LCBC with platelet count + automated [id number] 04:45:00 Test Item Value Reference Range Interpretation Comments WBC (test code = 6690-2) 14.1 3.5- 10.5 K/L H RBC (test code = 789-8) 3.65 4.63- 6.08 M/L L MCHC (test code = 786-4) 31.8 32.3- 36.5 GM/DL L Hematocrit (test code = 4544-3) 32.7 % 40.1-51 L MCV (test code = 787-2) 89.6 fL 79-92.2 MCH (test code = 785-6) 28.5 pg 25.7-32.2 RDW (test code = 788-0) 13.7 % 11.6-14.4 Platelets (test code = 777-3) 214 150- 450 K/CU MM MPV (test code = 10767-7) 9.7 fL 9.4-12.4 nRBC (test code = 413) 0 0- 0 /100 WBC % Neutros (test code = 429) 76 % % Lymphs (test code = 430) 10 % % Monos (test code = 431) 11 % % Eos (test code = 432) 3 % % Baso (test code = 437) 1 % # Neutros (test code = 670) 10.70 1.78- 5.38 K/L H # Lymphs (test code = 414) 1.34 1.32- 3.57 K/L # Monos (test code = 415) 1.48 0.30- 0.82 K/L H # Eos (test code = 416) 0.37 0.04- 0.54 K/L # Baso (test code = 417) 0.09 0.01- 0.08 K/L H Immature Granulocytes-Relative 1 % 0-1 (test code = 2801) Lab Interpretation (test code = Abnormal 90080-1) [facility] W/PLT COUNT & AUTO [id number] 04:45:00 Test Item Value Reference Range Interpretation Comments WHITE BLOOD CELL COUNT (BEAKER) 14.1 K/ L 3.5-10.5 H (test code = 775) RED BLOOD CELL COUNT (BEAKER) 3.65 M/ L 4.63-6.08 L (test code = 761) HEMOGLOBIN (BEAKER) (test code = 10.4 GM/DL 13.7-17.5 L 410) HEMATOCRIT (BEAKER) (test code = 32.7 % 40.1-51.0 L 411) MEAN CORPUSCULAR VOLUME (BEAKER) 89.6 fL 79.0-92.2 (test code = 753) MEAN CORPUSCULAR HEMOGLOBIN 28.5 pg 25.7-32.2 (BEAKER) (test code = 751) MEAN CORPUSCULAR HEMOGLOBIN CONC 31.8 GM/DL 32.3-36.5 L (BEAKER) (test code = 752) RED CELL DISTRIBUTION WIDTH 13.7 % 11.6-14.4 (BEAKER) (test code = 412) PLATELET COUNT (BEAKER) (test 214 K/CU MM 150-450 code = 756) MEAN PLATELET VOLUME (BEAKER) 9.7 fL 9.4-12.4 (test code = 754) NUCLEATED RED BLOOD CELLS 0 /100 WBC 0-0 (BEAKER) (test code = 413) NEUTROPHILS RELATIVE PERCENT 76 % (BEAKER) (test code = 429) LYMPHOCYTES RELATIVE PERCENT 10 % (BEAKER) (test code = 430) MONOCYTES RELATIVE PERCENT 11 % (BEAKER) (test code = 431) EOSINOPHILS RELATIVE PERCENT 3 % (BEAKER) (test code = 432) BASOPHILS RELATIVE PERCENT 1 % (BEAKER) (test code = 437) NEUTROPHILS ABSOLUTE COUNT 10.70 K/ L 1.78-5.38 H (BEAKER) (test code = 670) LYMPHOCYTES ABSOLUTE COUNT 1.34 K/ L 1.32-3.57 (BEAKER) (test code = 414) MONOCYTES ABSOLUTE COUNT (BEAKER) 1.48 K/ L 0.30-0.82 H (test code = 415) EOSINOPHILS ABSOLUTE COUNT 0.37 K/ L 0.04-0.54 (BEAKER) (test code = 416) BASOPHILS ABSOLUTE COUNT (BEAKER) 0.09 K/ L 0.01-0.08 H (test code = 417) IMMATURE GRANULOCYTES-RELATIVE 1 % 0-1 PERCENT (BEAKER) (test code = 2801) Tissue [id number] 16:58:00 Test Item Value Reference Range Interpretation Comments Case Report (test code Surgical Pathology = 104) Report Case: [id number] Authorizing Provider: Luis Alberto Santiago MD Collected: 11/07/2019 03:42 PM Ordering Location: [place] [id number] CC Received: 11/07/2019 03:49 PM Pathologist: Lala Jimenez MD Specimens: A) - Lung, Right Lower Lobe, Right lower lobe endobronchial tissue B) - Lung, Right Lower Lobe, TBBX. Process in Cytology for Collodion Bag, Reflex Genetic Markers. ADDENDUM 3 (test code = f0cfiFXtRIKbtJAiVdNiWE 3383) BjTDBjv8anBLInbWKdIoKd MzNcZnRuYmpcdWMxXGRlZm Qve8uxs341zPRje7ksFQEx NtF4nRYmOBMroPIlH804h9 tiv2wptpFbmXB8XJAhLLT6 XWzndxImrzZ0OHgaaPDyGp O0YEapcmReQRdlapQgnpAz Shl0EPIgB354IME1iLaav7 amIWP5JXQeJBHiWpShJe9y gGKxK058HHFrVWWUZPSdjL a5QDGvnpXggbNlpBMRo610 Z814p4nnXFNltyGznWtWrc qbe9gmO865SSBahLTvlpOu BgEvLTPufQLdfQH3FLCbQL 4izxzoJTktEZhqQKBalrD6 ONGcwKPfW8JzITHcWI9uoi noINR4JMewGFTlYVC5MoLm TIGos5Bqyro0LxDpeu8hrm 73AND0d2VwoQumDTY2PER0 TdYcTn2hgBGjDAHhKN5sPa ZooILqEXTkyl02tQikSVqj dtOlkC1fToXpBLYvdQMrIT LiRZ7lmOFsAUAgoD7hpcvg XHBnYnJkcmhlYWRccGdicm DiQf5cmVrwPJM2GNmjS9mj sO6eHdZ6IKznT2ozwJ6mCJ x5GTxikGN1WCEmnE0nVF6u ivphm8jxMTnmGJgoUQLkri C0euQ9VHQgyWGpQ8YpnX0s DXZsWG4rjxikd6stUER3XA xtWRDnYUL3YdSuTPZeb7Vq lnx5SrAle1CnsFTtMHhaF6 0bb440WVCaagBgR3pqyLDo gerqqAObwjffFOocedM6DQ FsXHBsYWluXGYwXGZzMjBc bGFuZzEwMzNcaGljaFxmMF miYmHgVSGsHNbmI6anUvVk ZnMyMCBUSElTIEFEREVORF PHWWrVKCbLJ0NYDBITIlMJ JTYFGaHwVVnMPTZGG0ZJIA FBMqBYM5GDNX2AUNYVCO0X HLwiR87uZdfNZ5imHiLkUW RRWG8IP8iKFh7BYHETRVfY So5QYXAKXbdAOrxblTQpPH SugqQeCIPWT0DlROIWGGKP RURccGFyXHBhciBQbGVhc2 DvizLrYRKbbU9thYxfKSJq UI6jMWFmihUep8G0HYNxpp YoWYKivHaswfCmZWicKd7d kVU4yI1rLGHjrr0= ADDENDUM 2 (test code = u3ofoVSsAVXxqLCeQxNcAF 3382) ZkFQVsb8czAFWvyJWhEbNg MzNcZnRuYmpcdWMxXGRlZm Lng9rpj523mQQjd0wtAYFj LhX9gKApMYDhcGVqP964YQ DdCJbvn3dgl9YtBJChlGPi w9I1VLMKojcchJb4wPibA2 3pf8O7ZgyzV2zsATAoUFCw R3ViYM2bSGOrVxi9HSP8QW Q1WRSaOSXeT2XdIV0xTVCd hLBoKTf0t6whrNetSFQkMZ X4p9swXNklmrWxJH8pfm6v tZh1t9qlepDrMOEkURWwuL YQOCRuV0MxvKrlVi1fbJr7 lRdiDzkoRLO4Ljn7AH0yrv 67qid5bRhgPVIqbvzlOzS6 SLnePJQdhtmsWMm4CHbdVP XcaXT1NOWyxIMrZ0JjFDKe RO6oyjp8NTO3UKfrLNVhJe U3WHYeyHAuJHRxzBrpBBqt r769MBX3YxHeFR7rI7Vtx8 M2oR4ooJIuDDKqdUUrIjLm CGZuem4wjSCuPJdll2HjDW X2foJ6oEBenRWfCNAxTP85 Bhfhc7BoKwvgSKH2SSVhpu Jbi9Ydf9wjHgHbvxAoB2gz J8NfXMEmIGShCUHlNzMubm Bam7Rey2ClsMMwzZc4v1tj VHNpBUXkqNfua2vgGSH4JE FfP2Y5qTOut4flXAbeMRCa mGC1jwP7UZFecGGpW8VnfO 8zJADuLO6mcyd2y0vkPTU0 SQlpKGCpBmF1xeG6EQUlwM CrVSPvvTkkFNxgg582ETT9 XlKyMKSfe2NoD5FwcLrgE2 6fdGlwP62uNNXbtEdnvI3p wEwpjN4mLkJvHdOzJHvmuG xwbGFpblxmMVxmczIwXGxh leebHIFgDRvnB9umErXfVX TxpZllEXcvq4UcSIOtAATa ZnIhZXmufqZiHVJknlC9zF WeekAyj7S8MSJezM7taoBa w1Z9AOWuHTVxJDN3jYZkn2 YgQlJBRiBtdXRhdGlvbiBv mkAhgN9dxnOQAG5lQDeoAQ Ggr5Idn4RoFFPqvvLlYLEw JfHGG7OND52QL0OwPMXBN4 NHVO9KCMXBZihmVCQbHTGz QDFKNXVdAZK8TXWqv960AR 9zwSWtVFFfJ5BuBRozVULc cGFyIFBsZWFzZSByZWZlci T7ayD4eGUtx2Wdla0wRREw BGEohzSfVq5rEGZ8ZZp0RC Fim10vbLDoVVOpvn7= ADDENDUM (test code = f5fveZRcKYBsiGAlRpPyPY 3381) GjIYOnt4gbFHDseRArTlLz MzNcZnRuYmpcdWMxXGRlZm Yrm3rsk687hZVxl3stSLYa QsA6zKZiWZHnvYLwF149h0 ioi2opavAppLG3PDGpNRB4 HMrjatNbuuW6QQlymICoEs D1BDtonwCyARhhlnKcqgSj Czh3MTXdG535ODU4gFfmr7 riTYL9FQMhXCYxVhQaAk5u fMGoZ095QOUbBWTTXWTpxX w3ERFpnwOylbJuaALCe020 Z994f3gaVGHcbcCjiTyKkx fmd7vhK762AASztVJvfeGl SuIrIDFkjWAedDX0SMZiHF 6uuyseIDwuUMybXXJzdqB6 JMJayGOaH9DoDYUmDZ5shj wyBVM1SDyhJNUtYPJ2NiRm LYAlx3Abxaz3RxOcmj7mzz 16AEC0y3TlhBdrKLB3WSY5 MqJbFf9ihXBhSNHkOI3oXo WefPDfQMAegg88vPvqAPht myQpmF4zRbSdSFBzdGCtYI HnZZ4bvRObEAGvbA2ayhbm XHBnYnJkcmhlYWRccGdicm LlAi4gsKlyFNO2MRtcD7is lP6xNuV4JRxqH0zmgH4nYZ v8WYebqKY1AEKmaO9vSU9z nosia1neVXhdPWewKHFgtt F0ogB7JZEdmXBmH5SszF0h ADPrMR4kjqfts7vfFMQ0YT vsYWNgXTW5HmYwTZXsw4Co kqb0HnYsu9CcxVSoKXhfY6 2ag209YPReydNmQ9ejzNWe jqwmgCTpndfiVCtmooA8ZT FsXHBsYWluXGYwXGZzMjBc bGFuZzEwMzNcaGljaFxmMF zfTzKaWKGlMAbnW5aiJtId ZnMyMCBUSElTIEFEREVORF VXATjACUmNQ6PLJADOQqFZ LMMZXiUnNYjQEHKYF1RUQS XnW4KjQsiAITHHX0KBQZRH KCBRLSQyCF7PZXIBXBXOTQ KNKXPwGngnZVWiEX8rPPnW FNXdCVTkHV9nID7wtfG1VU 4xhDZVYMXiX1IgTKvzHUIq AV9jSj0FBBkqjzLqNdBdfl AbeufpdEKzqFjgMj29HHZz tFDxhBOsXTdDMRjyePq1DP lccGFyICAtIFBELUwxIDIy QzMgRkRBIChLRVlUUlVEQS abZz2lNZ3ID6pCTLajXBoZ PqYPO4XGFuDLtX3idgAhzv 2xe2H7zO6lUECry3BoYsKf PGUSevOfgxLtdBw6HTLvBT BhclxwYXIgUGxlYXNlIHJl YqItVTDhACCyGYCoW9Igqn UcQLDjyQ5swBQyb3CcWYMg dCOmx58wnXJncsBeym9vhZ bbxrkqMWUiECbvJVPvi1Zj s8WkMARuqsHyVPOaYbYBZ1 QSM57ED4XySVLHB1TNRZ5K SUVTXHBhcn0= DIAGNOSIS (test code = m7pvlHHsWRDoj5taZVZxuW 3220) FuZzEwMzNcZnRuYmpcdWMx NOgknkUkSNpny6PhZ7YaEc AwMFxhbnNpXGRlZmxhbmcx NAIvIZZ9ukTxATSdMSrmZB BcXJfeSx5jtPPqbAdxJlBh LHJms1iiuzVVdexhdVd8y3 wpDJCcZeE0tLFlZTxzQ1wr orEtqONzTGToHHq1hM89KE XldP4ylJYoEZkeddAmRuU8 DAnmWNPaSlN5MWLcwFPsSU OaQ0txFZUfMQkkAYXwRFas jDTfAUD1cGrph3N3qUUdbR VerYyyXwEdXkJpETDAh3Qx XSw6wBdjB0NrCPCxBoG8eQ QgUGFyYWdyYXBoIEZvbnQ7 cZ90ONdfybW3zCOqg0Zmn1 4ks341bG7dcEHmTUR1GMUe LJJlaWKqBBDnTMX0IXSdcH CeY0j1KbOlvWReV9B6AwSr yLLsU8K4EzBxjKUeS6S8Te PhlHJaAJYkfSLuRz1mjVKc iMAsnx9rrz45AMB9k0EouE owNNX6RSK0VfQmQi5xjAXk CFZsAI3jDwZigTAgKDBexh 29dBrbACicjhHpaO1vWcLb YZJlrWDgAFSwQU9xsACzMI BggQ1vkbyaYPIfJdBlmekr QJRgwUhzopSoIk2ekVlkNY S3CCosQ9rxuR9yFjZ3FJhu P4uvhN0kCRt7NWpziIW7MO JnhH9cOG2dgbtft6wxLpOy CD2nhjxpr6niTpUeIB5pgh c9l5eiOzPjNM5ftdzci4um NzIwXGhlYWRlcnkwXGZvb3 RqbhegJUYky2ChD0ZllFfl Q40fkXyoZ12kOMIdsHjlcV 7uuHdwbR1wSyZdJbUbWLeo bFxwbGFpblxmMVxmczIwXG kwyptaDXNsCBxlL9fvYmBo AQUzdFrbUOqdy8NrKQLbQH NuFjPrIT2kYEJAIkfrSojY ZRPpPN0QDWUvLD0UNFfyIN 8OL4STQ82KBHeFNMJVDX9B A5u0RUAquhWgUFLaFVWQK7 jZDBHIPPLMEyGYHGsTX65R MkHBLEzEGTBcN09NCTBGEC xwYXJccGFyXHBhciBCLiBM TW5JTHSJMZgVFRVUJ8bWXb ZIH4KZUTERCqRLA1HHC75D FDnTBYIHAA8EV2j6HVKmtm AgICAtIElORklMVFJBVElO HoZTEXCVUN1MOsNAQZrFHY FFRqBJSm8IIOQiD5IRLOFT LS9VCaNcCMLajk78BAH5Id Ipf9O1RBY0NRAyBDOpl8kz ZGVmbGFuZzEwMzNcZnRuYm uhrQMyEMMtOkCzr7sdu179 cLImi2rzKXUsRbG8jQAdKK OseSZhC099TNGmFZdvu8yi m2YsCENyxZVlb3D6QEDFvn euuIk6uPthZ76io9Q4Dlmu V7tnCVUwQDPxF9XoOU8nDD WzKhp8GCJ2IZA2BPGfIQFi P4XuRC0pBRVjwGAaGUi7v1 vieMznWBReRKG4v0rbJTvn ccUqDK9lsf6hnLe3o0gsvg DyBBPfIYUapRHGXVSoK5Cf yNgwYh6vjDi7xMjjQeztNP D8Vxb9DJ8jbi40chg7eJrp ZQYsvgwjZnO7WKuaGEKkqr elKCx1ORljCJIovMO7QIEx kFXnF2VeSQGnOY4xalc4FI T1VUnaSWKsOuC3LGNgdTQg IPUwsExxWCboj923XRD0Sd YbSZ3mZ3Qaa4X3hZ2tfDMv GWFknZPkXrTgHEVgrt5ynF UwLAbml3WiGMV8rkR2iOQp iRMsXKNbGdP0WYpoEF4pbj 42PJQoXTO4mz9tuSGshLzy udZviSByNLqwL9PwZZMxq3 81EKXvM0PzXCPyk1Z3ojQj XnWoBUGdjHH2mzV4JVHvEU 8ecsjgj5kzDLjrSVwmREJp mfF3sfC6DYYdnDOeI2TadK 2hMLQoHF6gsnrqz8bjCNT9 QNvxOEUoHBY9YuZvSGHqd1 Moldm1ViRwh6SfgGNrKJbi C43sg633GTCesrCyT6axpV FpblxwbGFpblxmMFxmczI0 XHFsXGxhbmcxMDMzXGhpY2 bsNtEbIYYxgPztRYqjp7Im XGYxXGZzMjJcdGFiXHRhYl r3WGGeiQMxBWFtVbAxU9qv qpawDqDIFCIrz6doV7vdtZ PWiBQuK4EiSPkeeeJpOPih SDmxLVQ6ZDC2Dm33NwM6WK Bhcn19 COMMENT (test code = l9jzxUTrHXQsbBPwXrGvCY 3352) IoCFEkb4iuXRLjgRUtVqFt MzNcZnRuYmpcdWMxXGRlZm Twc5zfw709xCNfn7zsKZTr KpZ0fCJeEPXdiGHnD267ZY XvSBdpg3plv4BuIIRgkBRc t2M4STZXeewbhMk6nIcjS2 5ig1S9CobgJ1uzVLGpHGAv F3UwIM3qNSSuLwg0BHF4TM X1YUJxURBvM5CxJF5tBCFw tPXrOGk5s4cvqWicQWYcZE R2z5tnHVrfrxShZD0phn1r yQm4w3kamrDbYLWlMDKbhG JHRAObT7WlzVmyAs9deJx9 wQdkTwjoRPP4Axq1UN4tre 80yns5qExcLTPucanvZwB0 EZzkTSZgmnmkASt6BXquMA JnbDcyMFxtYXJncjcyMFxt YXJndDcyMFxtYXJnYjcyMF hhXZCbWPE5SOykb776DCA5 PErot9rwq9pjoZLwEtz6DB JiQyKsQmqjXPysz5Osp6ay GAUurx8bNED2yQBjvHcqf8 H0sHJoJCOmnNXkpbGqMNUk TxO0HIljHY5mhi57BGDrOH U8fe7emPEopOgoiwHtyPEh XCwtT0KuUPOot875CUDnO4 IlTRZkx5Z8foQwOtYaMOSa fOY0hhN5SPFrFYo4pEPhql V2efNjsSQtE2ramE09SsPg iIJdI6UhkC62EgDvkIGpO5 SyiV43PuZqrVOsE2LavV75 UdAyfKOiVRTnkQDyIb2rhB QefVHni9MiwUEaCBogJ09o u796ROPbpiYmS2vhlSSvgz hjfIQeucyaYHlkmsT1WAIt XHBsYWluXGYxXGZzMjBcbG FuZzEwMzNcaGljaFxmMVxk LxIgHPMbWKonY9gqLzZrFw MyMCBBLiBUaGUgZnJvemVu EFLcI2Dej46vw2ehh9Zniy FyZSBjbHVzdGVycyBvZiBt KXauY16qfyLxE5MbiRYgsK 3qYFNoQFZoY3OpiJ3gMU4q FT4iO7Rts8otMSRmNUJilz BqAR1rPTSlp78uIM2seVwr bmFudCBjZWxscyBhcmUgbm 10IYKrfJYtw2FkxFQlFPQg VXU4AAFuiGvmh60htOqoGP Hxnx4nxpOvnHHpURR9cQ2w PQIjawYvaUW2xIEyENMgQB EgI4Hgufb7GNNwg62cSZOw sugvXRNaKo1dLLmjGM3xu9 JpWJQ2gBKsM2YsiVBrALEe JCAxu9h1xGBaPOIgqaMMSW WyFR68bJCiCXmfEVWnPTYn WHufoRt2KIIvy5DhMWLAPN UrVVPaERMry1RqoZ6qp3g6 MNAtOXE5xKEzgtHnpAz5qv PkPeGrBE3wrI6ovHmpsT2i aGVtaWNhbCBzdHVkaWVzIG TiKOIdq71gtAB0XB59HVwo iTiewV6jwLn1syN0uU9rTZ UqzQRzb4VvCIRdoNjzX2Vc S5nvw95qQkFOFP5lyOctEV 4blyoctkUaNRRcDAUtcH3s RVVjlfDcIJIjYrQxG3Cul2 4mG9OafEVbo3NcnO9xkXBe EoIRWPGwjbZky4trhEHxt7 izz1nknPIngT== CPT Code(s) (test code y7wyqIXqLFLpvPNcDpPuGV = 3357) FdLKFoy8ahJXHepEPmQmPw MzNcZnRuYmpcdWMxXGRlZm Hst2yjm953zBSna8quPJMa VqO6lHBiWDMwwXBtC507r3 ocl0incrBbaCF9TPUsOGW8 KZlmqnGpnkO9XFnxwNQzIh U0VVfeniSzPGywwvZyckWc Pch1RYKeM782FAU5hJuvf1 qgSTF1RWBpFVZtOtUfPp7o xJGuN179XVRkNWHGWSBzvZ z5DPJrqyQjudNjuRHXo957 G442b1dgLQEsmdNlsCuRtw rzf1dlW408YVBdtRUfieDv DnVsHXTlsPLflYT6LOSzJR 8yhkjlMlErRA5hloenXcVf WJ4fqvv9PvDfPW9vhhxuNv JtAWpuDFOjsqlrMSBip4Sg oekyXL8sF4Uax9J4wQ1adN DlKNImmRGmExMgDMRykl2f oUYqUZrod1IaCFZ9fjR2wM KalRSzHVWcFN13Qadar1Uz EjsrAYI6SZJijcXyo7Zdx2 etUqRhwaQqL1naM6FnIEYw XPLcEGFzLaHzzwShj6Nvs5 LewDGcvGx0p6jbALXoXBNs rSxvl1hgKMW5MHTkR6O3qB Jeq2jpKOdcPOEbnES7ghdo NQvlZTSilsY1huaoHOcmLK LzyMF2vxrqIMywZBVmFmD1 inwxXYrnPZMyRED8AOyve8 85IKL4QQckZtmbFJpfRBYq bmNvbnRccGduZGVjXHBsYW luXHBsYWluXGYwXGZzMjRc nDnihKubaH9cThTsRlOeMP fvOL5qNOKeT9sbyHBnTUSb OBZwI5geTkJwjF3ckKtxGC uxrtRzVOh8FsMefIQuPJi8 UyJ2jORpROp0RpSzlAOuVI s5KbQulJCuxBWeaD== CLINICAL HISTORY (test w2urlIFrYKMgyWGeZuYlGU code = 3353) BkRBVih2weSYOzpPKnCyNn MzNcZnRuYmpcdWMxXGRlZm Xec6jdv087cIPit9tfCQCl AxJ7pJQySTKlgSUaG631OR QzFZedj3cfi5MrDCTcoCVe d6O0SFFJbgwnjNj7rQehQ3 3om8X8JuqzN3mzTAYdQMCo T6CuCQ9lGQCePvw6HKZ4TZ R2ORZwPXWpP9SdOW0rVBIc rGIuUEz6p2whzMarSKRwJC B3t0gpHVrwleCjVY0son8k yRf4v8mjesWeXKZtRMSdhZ ACTADqA0JzeZirKw4bnKo7 rIrfBfqyVNW9Xar4HJ5uft 95hob0pFvzLTIoagqbLsK5 VNdtDLBvjinhOGr4TMeeAT JnbDcyMFxtYXJncjcyMFxt YXJndDcyMFxtYXJnYjcyMF yxBZTbDUC7KYvda451ZXE1 EKfmw5bzy1djgKIlQoi6GV StZiNaVmtwUFkcc2Hmc1gy TBCcrc4qCCL3qABpaOtmr5 N6rZUjJVFplDXxlwKzKUNw BfH3OGgkBZ5jhv98COJnQJ C5tu5ycOItqAorrnSisRSa MUbaV9IkBBQbs821GIGbG7 TdCTUkj4F0xaHcXmHiVLHm fPA4epP3RVHeWYf8uCSayp D3jaMhoQZrY1etcI08EdRg hKNsS2MzeT14UiVoyZAlL2 AmoH14QjIqvGFqQ7SxxS42 CyAusFDnMXUxmRRrRg8fdT SmmXDlu2PgfIJvIUjaW65g f559KMDrcfNoN5ttuYEbay okxWLwhuccSKspfdM1MCEk XHBsYWluXGYxXGZzMjBcbG FuZzEwMzNcaGljaFxmMVxk WsLgIZGgCJllS2leDqKwFt FgMCDCLNPcs7EqsbylQfJd neO5qB3odID1WJg0gbyvtH Usv0rzGGZ2 SPECIMEN SOURCE (test b0tmzKJjKYMogAZmKsXmFN code = 3377) SrHLUis4voPWFxcGYwIgMn MzNcZnRuYmpcdWMxXGRlZm Dfb3xox681wGOph8eoJZQr SxT4eAZcLWXhgGTyU077UY KlLWxvo8hug3OdWJWmeXAc k3G4BRXIdofzjEp6pEkdV5 1hq4R9InriI3tsOQSoNZTm M2BmMI9nCYExQnc7RKB4UZ U7TPAxXRQaU6XgPU1aAUIf yYRjVXg5p7iodYpvDRBgIF H1s3obTIrbdqNvPT1dee5l dHp6o8jjdkQyGUVcLBDpmU YWERTcV9UyaSiaUd6zwIv1 iVdvIuacBUT7Zcl9UZ0oav 86kwy7uHazCLAszfutDsE5 FAdcIMDzurocAJo2EWqxEE JnbDcyMFxtYXJncjcyMFxt YXJndDcyMFxtYXJnYjcyMF koWQUePYO8VSgxh650JID6 CEmza6dng0hkgBAcFbw5UF LoHdElZyarNVbgf4Imh1kq JRVlca2dVJC7cYOooZvvd6 O7rBHlTHWhuUIxnjOnAHXw MzW1WCjkCG4ujg01ZTGrTV N0ou7zxRTarUaepqZeuATd URwhT3DoZBQrz635AYGyO2 HfGPSeg4C8ajLnXoMkSTRx oZS4qxV5GDCdDOc8xORnqn M0yzYrgSMlQ3dklW07WoCr eCXjX2RdlU05MkTosQWdA7 ItfZ33SrPwgTXjQ0WdzG49 JhAakFFmMMGpaCDuHy9ydY CdgXVhu8LkqLAwBXpyN84c u277KMCpqbCrQ6eogIEbra khbFJlthzkXQjsmaW0NKXx XHBsYWluXGYxXGZzMjBcbG FuZzEwMzNcaGljaFxmMVxk KgGwQVAzDDjtD8deUfRsPx XaRMRKCnCIgJqptAPtx5is gjKlw5OuCXRhMZ4msl3wJ3 abLJgseZtjj1IzXUxtXJIm Sp1kTEPfQdzzYvklcTPdwS 35ILRztD6oJYL7ngEdj4Uf p19xnLkptBSanI0vz5hfaE FyfQ== GROSS DESCRIPTION (test c6pwuKOiAJUacJApDrDaKL code = 3366) IyXVYkv8kmZVEvfJUtInOh MzNcZnRuYmpcdWMxXGRlZm Fhj4vxe963qMEyu9kyFPOq TaY9dTZdIXBrrSJfC689JG VaERxpj0aqp9GbMSQrpIIu z4B7IADQptwutJr5wWorH9 9tu1B8SnecZ5ghTGZoZUDf C6CeOF9cYFRkKwm2ZBF9XA U7IBOjNEYsY2FuMZ4nGGCq eQWgAUc0f3udyGybOQVrLO O8b8wwXHtmucWxVV3wbr7z sSc6r7cwzpKrVPMqFIKukX CKOQSiJ7QnoLjrGz5klIp7 hYkmSmhuHVD1Sng1KP9hyt 75xyu5hGikVCKelslxIlC4 PDzfWFKnyetpBZx2CRpqAE JnbDcyMFxtYXJncjcyMFxt YXJndDcyMFxtYXJnYjcyMF ckWVRpUKA2LXqoo275LCS2 UBsvq3aew2jvqWIkYsf0HK NhGrJpNyorSDcmy9Qjg1vm SPFnin3lTHR3eXFxiBztt5 R8aYTpPBCktLWwfoCxMPSg SrX3OPncOB2xfg29VUSqKM H6zh9gbYGbnSyphiSwlRTk YPjmN9ZeHMQhr343UNPaO6 YeGDQfh0H4esJrVaIyOXJk wIG6otS0QUKhTIp9rPTzbp C9izNbeFHhB4spbJ59HpJo dHPuH3OexQ43TmHfdOFkZ1 LtnJ71FbZvrANwM5LhqH33 GoSmwSGiRDAtyTYaJc7skY ZsfYPpc2PodZXaDIvqU03e o040GRCrvpZyZ2irjERwwy vjbSXyzkrqKZrrjnF0RUIn XHBsYWluXGYxXGZzMjBcbG FuZzEwMzNcaGljaFxmMVxk BgVqIMSiRWyzU3geSjJkHd OrVFVQpUGnxL7tjcMKGHgr ILbdHlFiEVGoSye0gidjAG JtH5e5YXxwb2BlFWjkAvHt LiBSZWNlaXZlZCBmcmVzaC Jzc6OarR06tjWsxNNlRMCs rtLqF74eq7GsyRF1bY6lCZ IpWMX8eKBaVDZ3vF94XDIp RBumFI39gnLmPiE2QB8wBd Goz80gyGeuy6PhII2mUDC4 wvvuBhMlYnJyB08eUKBcgW 4gVGhlIHNwZWNpbWVuIGlz MDBdeYrnDPe3OFC7Rv1btI LlLZWso4AwBfUqqrPsFSbb VWBtj7DjaZOnDYMoSrIKOj 2npCkpHAMbjYLyKYy2xsNh clxxbFxwbGFpblxmMFxmcz W6GDFyTJtnHHUfJCCrNvXe bGFuZzEwMzNcaGljaFxmMV wrElZvYMCgOPmtG6isSnPp UbErCJOKmPWhoD2xpsMYIo OBhOBwu6RgE6fyXO7qxDJb lyKeFIh8XWWlxY9vEIGiu8 QyMJmpoz8jaAxbQYEyE31h dGFpbmVyIGFuZCBsYWJlbG VkIHdpdGggdGhlIHBhdGll efZzszChpjMwkj1cdAtvye BhbmQgbGFiZWxlZCAiTHVu MtweJixnpSZnsO53NRLyuS 5yYLU2epRig5Cok48rkEst cPLfwJ9td2ksWOPgQAGix5 4ppTJ3svHiKxXim3XgmNLr oeO5bGa9MAZwXFozJBIwNO 9lCDSpXOIyHGxyVH54fqpd k50cCZfuhAAlRDQsS4rkMF DcVgYqB75uPcMxU46tlcH6 LFOtxEKpCJKrlaDiH5RmNV AuMiBjbSBmcmFnbWVudHM7 OKNkJ2l2RPhrfMQeERSfJ8 ldPDPkMdFuJ15iOcJpW69j yfPbFOJuoXSjaZQ6EKDwRG 45qGJloQstQjSpxD2fVZYz JLJlNSJzWf2dKX0caQKdzX == INTRAOPERATIVE n5jhvFYqRKXvrMHbJzWtCV CONSULTATION (test code XhLCQtv4hoKCNsxLWmYaUu = 3369) MzNcZnRuYmpcdWMxXGRlZm Trm0vaj524kWFqk6cpRXWg PoP4gFNpBRUoeURmW385MP ImNGnqb3ntd5VqVRLrmOZh u5D0ICQUlhqqoAb0tSkhA4 5vs6X6TsiwI2ntXZAzFCPs V7JoVX0zIJYrClm9MPQ7CN Z4QZJmKLEwT6JrCY9vBUAy fHMzBYm8h3aarIlmBUTrXV U6s2xbJYskjuHpBX4rrs1q uWw7t9dcdfIkLGOjDOGknO DDPVMbJ3OmbAqsSv5xyEq5 hGyiQahgMJW9Mif2ZZ2czs 54tci6fPnrXEXyoskrIhK9 AGyqKTZspxatFIx2YAijRL JnbDcyMFxtYXJncjcyMFxt YXJndDcyMFxtYXJnYjcyMF byFYAnVSG3HQvku632VUQ3 LRfiw1krv7tmpUXiHsl4WE ZyWsFwFrjhNDytd4Gcf2pg OGWedk0dMMH9lAWsjUawj9 C1nLJjIXVaxXSwxuSmIPZl ZlR7QOapRO7uak71CORqAS H5bi9ypJVqsNkyylXcvSKo YHenW6WlJNWzx581GRFtM7 QaOEMap2S2ggScIvSeHGAt gXJ3tmJ2SXRrCYy1zCUirx X4jcHkgILzL9logI33KmEr pGQaA2GfwK36QzBqsGQxO0 NsjN23NwUxmIImU9NvqK31 UbWbhFPkYUNehYPzHx3fdT FjjPEty4ZuqXLlLAunO82w l507UAKoyaIdY2sdjASdru nglCWhsjrcHEdgjhD0FNBt XHBsYWluXGYxXGZzMjBcbG FuZzEwMzNcaGljaFxmMVxk OwOeVXWfZBxyF9buVrArZk MyMCBBMUZTIDogUklHSFQg SR9RGXXcGZ7IXEspIE2UE7 FFL38JEFhOLAIPUQMJBKVh YZFWF6AROMwroMNoRUDuZA MFE1GHEAhWFOMEY0TpVNLS EEwAOR5CYEIVPuOIBYGNM4 iKIo2YLcGrA7TuJN9XAJAY FTLDLF5VDBDPLWNRVXJTT2 NJUyBccGFyXHBhclxsdHJw LCMxcIfuzUujrU9oHhPaJg MyNFxwbGFpblxmMVxmczIw LMrqrhkqKJSsUMlaF3cxEt ZvZZWsfXxmBUcon0ItKFRo JWMqKsSmMrYfv7Q7EJJdOa kgRHIuIEhlbGVrYXIsIHBh bVzlzY0hoEA1ZP8uEUi4AZ VraOQ6ElFyFAPebE5rwMOm fQ== MICROSCOPIC DESCRIPTION n6xrtWTiFYXgsRGcAaPmRI (test code = 3371) ZwCHWmx6yiPIObfCUvTwGp MzNcZnRuYmpcdWMxXGRlZm Mnd9skn589cLMuq7ulPQWe XnE3xLEwAZJikUCjE446TV FaDPacw4ioo0BzGVWzxURu a3I2PMVLwfupoUt7rZlfA0 8xe9B9CiwqQ7piPKPcYTLv U3LiNL7vWQGwWju7VAB2JM Y1ASTyVEFsF8XnPK3fMUMx xQMnNTz5m7dmjGspRYRbAP H0j5tkMJlcdxUuJX7sux0c vFi3q1gxliTwHGQmNRViiT IECPUwA7McmYabBf1uaJe2 wCtwSleyFIQ3Fes8OF0gbv 68gek0dTerRYRddmxwLcJ6 AZjnKRBmexboCKd5PIhySO JnbDcyMFxtYXJncjcyMFxt YXJndDcyMFxtYXJnYjcyMF djAAZhBDF3YHrhy684FWR2 NPmuo9faa1eclANqCum6IG HtTwXhAkzcONgln9Iqo6jw SWHwvs0cJZF5vAPbtDibc0 S2pCLnIDQanMBodjSsXYIo EaO0GMvpHK8scq75CPJtOL L3rj3ixYLjwCfomsIbwUFi OBysF9VlDHCba270SXTnM9 IqHKQjp0X9lxLxJwGzKEOc vMZ6yrO3LRWuZXe3lNCpgw J6ekGemLPxR8qhwL08ItEo qFOqZ5CkvC42SqNndJMcQ4 LuiG53IwJhdIQtV6ZwuT05 BxGhbHQmOXYzpAPhNw1ttD ZzaCZdr2MzlMMeBDwbF99q b427ZZNfmjXpR1kubSNzfk okwQJgdsypHWvgwrH0ADDa XHBsYWluXGYxXGZzMjBcbG FuZzEwMzNcaGljaFxmMVxk LqTdKJQtRSjlA8mvLdNgTz NjLLZJUMS2NEXiloIooc4u ZFxwYXJ9 SPECIAL STUDIES (test i9srjVKqLCGeqJHpSeYdUM code = 3376) VtPJZtk5fbECMrtSLoCePx MzNcZnRuYmpcdWMxXGRlZm Eod6mee338iABbd2znXVAz DtB6xEGwINRjaTXiX095HY YmFGphd8dup5CrGZAwzWWr h8J0BFPXJLxyOrGvM322NW TtBGxdo1kha7ElUEHbfFRl q5X2DBYAmaawfZd7cPczI7 9ck2W5PvrrR0hpFOBbLBGp B1LmYT6dDJZxApd1USM2UH H1YTGaKMOfP0TrLU0qKHIw kMQpLTg2l3wdrUzkACXvST B4p8suJEvfbsH9TT8eqm6p fQp1n6zemlXfCSCeALQfrU PGBFDdQ1NlgBdxXt8ozYw4 c9wpElvqfkO1xUTrDrHrSr MyMFxsaTBccmkwIENvUGF0 hKHKMNr7Q425m8paBXRsnz OxtUlFwhfcu1nyW873OUUv cGVydzEyMjQwXHBhcGVyaD W9DTOiRC9hhtboVcOmDA3b wpggRsDrHO7qqwj9MeUvIW 1hcmdiNzIwXGhlYWRlcnkw NVFsu2EydazjNV9jD0Ytc4 C4aH8zcMRyFMJscRWoKyHv BBZckw0ynIUxUBnyBPB6TD EywcCxb3Mag3ihFePfyuKw M3abW6BpZJVcJHKqJEGnUm EccwEnb8Bhg0YgjSYgdQt4 k1gfDVBbLJHibQdoi8rzYI A6XARvJ6H7bTWgl6toUHfn ZZBjyEW4frdmMGdoSGLzjj X2wjiqEInfNRHqtJX1ruxi THauFFDeVsA3nxoxFCeiRO DnFFT9LUngr036CEO7IVbg YmtwYWdlXHBnbmNvbnRccG duZGVjXHBsYWluXHBsYWlu XGYwXGZzMjRccWxccGxhaW 1eIuKkUlGmAkheIF7gWOLp W7rlzRFyRZHlGEKkI2iiOx VrqE6hxCbqUFbnDgMmLjDv XvTBgVQllO20YOCtkzM4FK Ais11as3YkvIkcyeLoNWCg ZHzwB3q0XXFmJYYuKAI9z2 Wqv4EnmV5zhI1bsKuqzF2c fRZfvYL4ykqzy4Gdr9TuS0 lhbCBzdGFpbnMuXHBsYWlu XGYxXGZzMjJcbGFuZzEwMz NcaGljaFxmMVxkYmNoXGYx NTubM6puAkWcM1JmLFAdMh NbwOGcL7abwULgLAWcPGpu XGYxXGZzMjJcbGFuZzEwMz NcaGljaFxmMVxkYmNoXGYx ZSibW7ayRrSlL6OyYINtHq LjCBHOGMB3IQR5ID4etqAm Ov2ciDhsUKMzV97wlKLvlF BTbGlkZXMgRXhhbWluZWQ6 DPBByj7lp8NyEMQvqc04tr Jkz2MnzLb3BAJyu112wc4b pgG9NNIyOMA4ZBe0GCQsQN EszJ5xLlU0kJEvHWUyRRM1 XDH2XSRlu4H0UO5xYNJlWK SbNEKxriLjp7xvg1adYOWy MYP2ncHblP0yR9SlZNQlo6 YgdGhlIHBhdGllbnRzIHNh xAUgGACbzG58JVUvaCHehO TuZAKaOAY4BWmiuI2zLvYL lgHiyq0uyRSks5XvyXu2ND DbjwLfnoNfEPJezuUpR43t nQTihSYig8kywtWiurQskV HzyBPqYEMyZBZ5GDh8ESRa ZFxwbGFpblxmMVxmczIyXG heayedVRYrKXvfS7pfSlUa FMZtoGfkTJqna1AoWQNmTG ZqJzfnlaNjKPt5snVtEAIp clxwbGFpblxmMVxmczIyXG xdixqtWWMiSJmiX2lrAqVm YLBjxEwgKDwqs2XgKNWgYG ZnBxnnhjPbBKFukGrqpJ0j FuZeJmEyRfevRO2yLUFwC4 gmlEOlOVCcNOPjR0zcByAk nH9qhYhxZMkdGiDcIwMnLg qrzJFwnTysZQYctPkyxM9l AzBzUbVdKyfgAI4dQJQeT7 mxfHVqLJUzQORcN9izPdMn oC6ipWaaQKgoNcUlEuThOs NSsZ19ff4kiML0r7EkBZ8t p8LcsOG3IMBhccegVLxirH FzsYaiJvT8PFWooIYmPb5v sPQkXJP3TEVlcTpjvdKTkY 4gTHVrZVxwbGFpblxmMVxm czIyXGxhbmcxMDMzXGhpY2 gmPnEaKGHccWdxKEnbw7Ph NWWtWNRrRubxkvEkNFZ4Nz L5LJfeDRIjgOjdhI5bOaIx ZjOrWeqzFF7eQCTwJ3vbjU FhKTTxSXIqZ8pfRwVwqN5v aFxmMVxjZjJcZnMyMiBzIE 9xLFwdCZkeI7OykOMxEEWG PGRwf9pbB8nzXXKdm6QboJ 5dnXM6kVHmGDMjzNP9NBRn POB6QExekCBiQVNaOSJnoF CscLVcSr5lkNOoP7MwS6kx adAjsHAvnLG8aFXcPKcjvv ZjJVD3NAXbkV3kLA5nINHa tDHlBA0orGUkBTWtBPFsSP XoBDAag8TjETCyhv97IFSb EqkgzVqiCJKaFp5nNx9tBK VxzqHnMPT5XnMDMW4pwscf qBBejPzrip6cLYvlDBJODG YaWWRrIMW3BVKqbH9uIHP2 pZD0ZKO5Q6ctZ3yeHZSehe VhIE6jGFMolXCcdoVmSJls UK1ilJIzDPCbz3WsptjvEC MgUVA5NQR3KIdyNANvVBOa Yz2pOFKdoD7eO0ZkRAI9qu Zhs7BbJbSIyIUhiQ50jOHn xq29FZVvKAHaE3ZoHOVqMQ DlDEmojvEtwPgcAGIvx96g cLDrqnMym7YlgcOyASUoN0 gsGARazGKwaBBxt0ZtsQ0a wIAhowXrNZF8lPUoCXChfV 8vYMSayLdpWMMtoG6oE0Zg CRwuQf2lISQrvtrnAI4lqd 26DO5hufEnWZ8cbuSbZH61 mzFoXjHwRMf7IDnNXLaQVY h2ZFOapsUimNZhnZEkMRQz oX8qxTYgFe8epSMcoRshLO PspZFsMHmjbJcrS7xqfepj MDkweAUxs9GrjQ8qeYO8NB S6fJ5dBrwrrKSxnyrrTzga czIyXGxhbmcxMDMzXGhpY2 bmYbUnHXSplUqyEbnsg6Ff XGYyXGZzMjJccGFyXHBhcm GpcTmbeI5vNePxSrRnZIja vYIwnfrmOwmckgQ9JLJuiv 0= Gross assessment was [facility]'s performed at ([facility], = 1381) Department of Pathology, [address] [place] [address], Technical component was [facility] performed at ([facility], = 2778) Department of Pathology, [address] [place] [address], Professional component [facility] was performed at ([facility], code = 2779) Department of Pathology, [address] [place] [address], [facility] [id number] 16:58:00Surgical Pathology Report Case: [id number] Authorizing Provider: Luis Alberto Santiago MD Collected: 11/07/2019 03:42 PM Ordering Location: [place] [address] CCU Received: 11/07/2019 03:49 PM Pathologist: Lala Jimenez MD Specimens: A) - Lung, Right Lower Lobe, Right lower lobe endobronchial tissue B) -Lung, Right Lower Lobe, TBBX. Process in Cytology for [place]ion [employer], Reflex Genetic Markers. THIS ADDENDUM IS ISSUEDTO REPORT THE RESULT OF EGFR MUTATION , ON BLOCK B1, AT [facility]: - NOT DETECTEDPlease refer to the scanned report for additional informationAddendum electronically signed by Lala Jimenez MD on 11/21/2019 at 4:58 PMThis addendum is issued to report the result of BRAF mutation on block B1. The test was done at [facility]: - BRAF Mutation: Not detectedPlease refer to the scanned report for evaluationAddendum electronically signed by Lala Jimenez MD on 11/20/2019 at 2:02 PMTHIS ADDENDUM IS ISSUED TO REPORT THE RESULTS OF BIOMARKER STUDIES, ON SPECIMEN B1: - ALK Rearrangement: Not Detected - ROS Gene Rearrangement: Not Detected (Negative) - PD-L1 22C3 FDA (KEYTRUDA) for NSCLC : EXPRESSED. Tumor proportion score:1%, Intensity: 1%Please refer to the scanned report for additional informationThe test was done at [facility]Addendum electronically signed by Lala Jimenez MD on 11/19/2019 at 2:18 PMA. LUNG, RIGHT LOWER LOBE, ENDOBRONCHIAL BIOPSY: - POSITIVE FOR MALIGNANCY (SEE COMMENTB. LUNG, RIGHT LOWER LOBE, TRANSBRONCHIAL BIOPSY: - INFILTRATING SQUAMOUS CELL CARCINOMA (SEE COMMENT) Signing Pathologist Direct Phone Line: [phone] signed by Lala Jimenez MD on 11/09/2019 at 3:09 PMA. The frozen section shows rare clusters of malignant cells in a background of necrosis and inflammation. Malignant cells are not represented adequately on the permanent section for further characterization.B. The neoplastic cells are positive for U50-ernlabxk and negative for TTF-1. 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 Genetic markers are being done at [facility]. Report will [id number], [id number], [id number], [id number] pneumonia; lung massA. Right lower lobe endobronchial tissue B. Lung, Rightlower lobe transbronchial biopsySpecimen A is labeled "lung, right lower lobe". Received fresh for intraoperative consultation are three tiny fragments of tate-brown tissue measuring 0.3 cm each. The specimen is entirely submitted for frozen in cassette A1. SW/plSpecimen B: The specimen is received in a formalin-filled container and labeled with the patient's information and labeled "Lung, Right lowerlobe transbronchial biopsy" and consists of fourteen white ragged 0.3 cm fragments; one white ragged0.6 cm fragment; six red ragged 0.2 cm fragments; eight white ragged 0.2 cm fragments, submitted entirely B1 in a mesh bag. A1FS : RIGHT LOWER LOBE, ENDOBRONCHIAL TISSUE, BIOPSY: - POSITIVE FOR MALIGNANCY IN A BACKGROUND OF INFLAMMATION AND NECROSIS Reported by Dr. Jimenez, pathologist [id number] at 4:02 p.m.A-B: PerformedThe interpretation of this case included the use of immunohistochemistry or special stains.TTF-1; [id number]-[id number] Slides Examined: In-house known positive controls were evaluated along with the test tissue. These control slides run alongside of the patients sample show appropri ate staining. Internal positive and negative controls when available are evaluated Immunohistochemistry technical testing was performed at [facility], Pathology Laboratory where it was developed and its performance characteristics were determined. It has not been cleared or approved by the U.S. Food and Drug Administration. The FDA has determined that such clearance or approval is not necessary. The test is used for clinical purposes. It should not be regarded as investigational or for research. This laboratory is certified under the Clinical Laboratory Improvement Amendments of 1988 (CLIA-88) as qualified to perform high complexity clinical laboratory testing.[facility], Department of Pathology, [address] [place] [address], [facility], [address] [place] [address], [id number] [facility]aritan [facility], Department of Pathology, [address] [place] [address], XGA, CHEST, 1 VIEW, NON [id number] 09:02:00Reason for exam:->RLL Carcinoma, frequent pleural effusion.Should this be performed at the bedside?->YesFINAL REPORT CLINICAL HISTORY: RLL Carcinoma, frequent pleural effusion. TECHNIQUE: 1 view of the chest. COMPARISON: 11/20/2019 IMPRESSION: The right PICC line is unchanged. Rightmid and lower lung parenchymal opacity and a small pleural effusion are again noted. The left lung remains relatively well-aerated. The cardiomediastinal silhouette is magnified by technique. Signed: Abdullahi Penn MDReport Verified Date/Time: 11/21/2019 09:02:25 Reading Location: [facility] Radiology Reading Room CBC W/PLT COUNT & AUTO [id number] 05:58:00 Test Item Value Reference Range Interpretation Comments WHITE BLOOD CELL COUNT (BEAKER) 12.4 K/ L 3.5-10.5 H (test code = 775) RED BLOOD CELL COUNT (BEAKER) 3.67 M/ L 4.63-6.08 L (test code = 761) HEMOGLOBIN (BEAKER) (test code = 10.6 GM/DL 13.7-17.5 L 410) HEMATOCRIT (BEAKER) (test code = 33.1 % 40.1-51.0 L 411) MEAN CORPUSCULAR VOLUME (BEAKER) 90.2 fL 79.0-92.2 (test code = 753) MEAN CORPUSCULAR HEMOGLOBIN 28.9 pg 25.7-32.2 (BEAKER) (test code = 751) MEAN CORPUSCULAR HEMOGLOBIN CONC 32.0 GM/DL 32.3-36.5 L (BEAKER) (test code = 752) RED CELL DISTRIBUTION WIDTH 13.7 % 11.6-14.4 (BEAKER) (test code = 412) PLATELET COUNT (BEAKER) (test 208 K/CU MM 150-450 code = 756) MEAN PLATELET VOLUME (BEAKER) 9.7 fL 9.4-12.4 (test code = 754) NUCLEATED RED BLOOD CELLS 0 /100 WBC 0-0 (BEAKER) (test code = 413) NEUTROPHILS RELATIVE PERCENT 76 % (BEAKER) (test code = 429) LYMPHOCYTES RELATIVE PERCENT 10 % (BEAKER) (test code = 430) MONOCYTES RELATIVE PERCENT 11 % (BEAKER) (test code = 431) EOSINOPHILS RELATIVE PERCENT 3 % (BEAKER) (test code = 432) BASOPHILS RELATIVE PERCENT 1 % (BEAKER) (test code = 437) NEUTROPHILS ABSOLUTE COUNT 9.41 K/ L 1.78-5.38 H (BEAKER) (test code = 670) LYMPHOCYTES ABSOLUTE COUNT 1.18 K/ L 1.32-3.57 L (BEAKER) (test code = 414) MONOCYTES ABSOLUTE COUNT (BEAKER) 1.30 K/ L 0.30-0.82 H (test code = 415) EOSINOPHILS ABSOLUTE COUNT 0.36 K/ L 0.04-0.54 (BEAKER) (test code = 416) BASOPHILS ABSOLUTE COUNT (BEAKER) 0.07 K/ L 0.01-0.08 (test code = 417) IMMATURE GRANULOCYTES-RELATIVE 1 % 0-1 PERCENT (BEAKER) (test code = 2801) [id number] 05:45:00 Test Item Value Reference Range Interpretation Comments PHOSPHORUS (BEAKER) (test code = 3.6 mg/dL 2.3-4.7 604) Software Controls Engineer ID - PEACE [id number] 05:45:00 Test Item Value Reference Range Interpretation Comments MAGNESIUM (BEAKER) (test code = 2.1 mg/dL 1.6-2.6 627) Software Controls Engineer ID - PEACE LBASIC METABOLIC [id number] 05:45:00 Test Item Value Reference Range Interpretation Comments SODIUM (BEAKER) 137 meq/L 136-145 (test code = 381) POTASSIUM (BEAKER) 3.8 meq/L 3.5-5.1 (test code = 379) CHLORIDE (BEAKER) 99 meq/L 98-107 (test code = 382) CO2 (BEAKER) (test 29 meq/L 22-29 code = 355) BLOOD UREA NITROGEN 30 mg/dL 7-21 H (BEAKER) (test code = 354) CREATININE (BEAKER) 0.98 mg/dL 0.57-1.25 (test code = 358) GLUCOSE RANDOM 106 mg/dL 70-105 H (BEAKER) (test code = 652) CALCIUM (BEAKER) 8.2 mg/dL 8.4-10.2 L (test code = 697) EGFR (BEAKER) (test 72 mL/min/1.73 ESTIMA MANDO GFR IS code = 1092) sq m NOT ACCURATE CREATININE CLEARANCE IN PREDICTING GLOMERULAR FILTRATION RATE . ESTIMATED GFR I S NOT APPLICABLE FOR DIALYSIS PATIEN TS. Software Controls Engineer ID - PIAYA [id number] 13:38:00 Test Item Value Reference Range Interpretation Comments Case Report (test code Medical Cytology = 104) Report Case: [id number] Authorizing Provider: Yoly Qiu NP Collected: 11/16/2019 05:02 PM Ordering Location: [place] [address] ccu Received: 11/19/2019 11:07 AM Pathologist: Tate Barksdale MD Specimen: Pleural, Right DIAGNOSIS (test code = [id number]) FuZzEwMzNcZnRuYmpcdWMx UMkedrTaVQdbe2UzC6EmSw AwMFxhbnNpXGRlZmxhbmcx HLCbONO5soEgVSCsCOlrBJ GjWGksAq4ssQVaiPckVzMx WRGvg9tkdyVZmvbneZh5y0 rfHBYsMlR6aBWzQWwoY6py wgHrfRDwJFZtRXc8nO66HF NklD4igEEuPGtyltMjRjE5 JPqlBGSuBhO1KHJxhDYiHA ZzF7djEDXhOPpsXSFdKAbb hWFfDFZ7tMmgu7H0zMApgC IuhOniAxUaIyRnRKBRz3Cn HIt3mVelZ4OiKMKmIrW4lT QgUGFyYWdyYXBoIEZvbnQ7 vL29FMpooqD1fCEfx5Yeb5 6gb562hP4doFJwFAU6RROi WSOdiMWjIJVlLAT2XJOewX FnP7n8RmJkyGQaJ7Q0PhGh jVXrZ3U1SqRscFKbQ4M9Eo YqlMObTLKrbEJkSz1shZZh gEWcxj9bln06EKI0x6YrtS hjYHU9YNM5NhYvEf0klBSb HYTwHM0nYsKcdISrZCKsbj 26cNllANmkrqVngJ1eStXe LBLxeOJdSZRtQO3vvQMwCF BceJ4afctrDHCgImChagnu QWXflBggndMvVf9vqJaeIR B3EQgcH0tycW1qTrV1RBxp R1rwlU7oRAs3IIqkvIU7KZ BeuN7yGG0uphvss7onUkNq IH7rpouny1blAlUnBA7pcu r8y8xhPoRjAU6owqdiq5fe NzIwXGhlYWRlcnkwXGZvb3 SrbgtwPCZmp7BeN2EvuCcs K23poHgxD65aHSQzpSvibW 5vhYudcT7aDsFdMuOxRJeb bFxwbGFpblxmMVxmczIwXG fsnggiGLDkKFmzF7ktJpFq UCEbzBcbOFjzh9IyQTEwWR ZzMjAgUExFVVJBTCwgUklH SFQsIEZMVUlEIChDWVRPU1 OEZwMcHN8NOJHPCDxjTkdA B3baMpvvbN8fLAMhWS3gOs DQVRJQKkKqMk6ZTG7ZBVgE VcKCG3boxTBbETYrWR9vEl ArG4DogdRkhHXcl2GxFAjj HQthA8SraRHogIPyh9JbtB zfWQS9n3vdmOPcSNAzoHHr ODAwMFxhbnNpXGRlZmxhbm prISNoLBQ6fpGbTYRmTStx IUIyTVfrVu2qgCVlxIapCq EuHKPob2uqduYUbcurcHf5 s5zsLSUaBdF2vRGfTAthN4 xfusMvrSCaJJVdDBp2cP40 MGSbtK0mbAVjOJvgudJfCy G5SIcnJTMzDdJ9RQAuvYBx DNPkL6gwQVGgFWuoDHNqLO dfhZIhHBT4uLrwf0K5bHIf aGVldHtcZjBcZnMyMiBOb3 XiOYl5gOhnJ7VxNJXtIyQ8 bHQgUGFyYWdyYXBoIEZvbn U5nL43QTqqkiD5wLFsg5Jo y33pn357uP7scJJvEPM8TK MhMHVlbXMkTBOsOBA1RWDv tEMkG7ezRODrQU3gvmwuKT zzQXniMAZypES7AZZaaTFe L7LxVETeNJziZIXkgni7Ht QyZv4igRTzwFdiEXokx8me j7zrsTCyKux0FHVgDiUsSv wrGNnbm3Wbj6jtPSOmcc9r MSA9vSAvaGzbm6L8uYLbFO LihSIxHACkMJ9loMUkGKDn wO6scsrpCQJyVqLbenxeNN MpoQzbxaPtDp7zbCsfOUS2 AWtaH2bfgG9rZuN2HFjlT4 basW7gBMm5VFuhWZHfeHH6 buV3ZTFudPTxG4HsmG4xOS MsXQ5tosj9k1wnESE4BMjp BNLnQhR8ohH8RKKomPVkHU RavPxgOKsib224LYY0TmGp JOOlh8HjW2KezMoeO96wdJ lhO64bCUHjdKspyR5xlAjy xW6pPvUhXvRvOPljcZddOD 2gDMOcO0vhuTErBQQkZKBp T2ztHxQfrZ6hxIpaQTmfcf GoXGYcXvq1FZLqbBHtNBZg Rxl6DHOvSBRgW23nzxkdRT N4nQ5bq0snt9DgUEfxLFS3 FBGed32xJGhhzfZ3QRyyTx 8lSTHmRmp7GlyxJTD7hG== CPT Code(s) (test code x4lxdRTyUAKgpKKrKzCxOE = 3357) JqQOBji6wvAINgzUNlFhXk MzNcZnRuYmpcdWMxXGRlZm Yda9xce040hUVep6peWSMb NcJ0uALzDDSenMQzA387v7 gkq9tdpbPkgDI1FXGqJEF2 DQdhjvQyklH8UGzykKEmNl L2NFrqvaTuSMsbwjZyrnUz Nfd8JLOcT343XAH5eBeac2 hzPJH8DKPrJCBxFeIvAu3b yDFbD859SXUwSQLGIBAxtB x8CSVwpjYfrwSimCDHb001 B384v0teRGIswqXsjTbYin gon1beP973ZZThsRBsftHb VzCuYPRaiCRibBF6KLWwCG 7npgdwEjVjBG0wtvtzIdKw RO8xxvk7JwUcVC3ebgamTt JdZAhuHEFjlpnzBITfy6Ar nnvsLR6oV4Tfk1N8qJ4hmJ OvZVWfpOHlNgGwWESatq2h tLPnLDctn8NzVHJ2quQ7sK AwdXGzFMKeFT28Fswaj8Tm XwswHMD3VCWlnoVmi8Dit5 ekGyTjcpFvP7yoY8YsAOBf ZQSbOECrMwErwrQrs7Gni0 EsiEVknOh8z1ddEVOfKMFk wHkwg3ihHWF0USCxZ4I7hQ Mzn6wfXPxbYDKawQL1iqmf UHqaSNNiiqF4fkyiMEyjPH HhxBM0qwshOBjhUJFeWfH3 qaunFDooZNQfSRW4HDkxb0 88WKG9SGnqEeqfGRabPGZe bmNvbnRccGduZGVjXHBsYW luXHBsYWluXGYwXGZzMjRc sIkuvNlknO8pYvElGrUxWW wwSV9pWCEoM7hsqMCjJOCl MWXfB9ljFmZunS1atQovNA gztiXbWRg7ZGY8QWR0ZHOe NVxwYXJ9 CLINICAL DATA (test x4tclVHqENUjrCPpEaSdDP code = 3355) BpHHByg6qpDNSxwZRjXyOu MzNcZnRuYmpcdWMxXGRlZm Zlt7box228aBFbx9gnUQEj EwC5iRHgEAGaxRZrK801CZ PcCJnvs8cyn3RpZOSgyDDe z9G3ZUOPydbxxAa6bTesP3 8wd2H4UdvuR6ifOWBcWRVe R5SwPP2pFXJeFan0MXD6OD K0UMXdHNMtA0MxLK3nNFNz uMNeRIz3b0ncoHreUGHgYG C9u9nzXQzrtrPeXJ4eyc4d dCh7k6xxqzVwQOBjBLDnqW NHBPNcR8RjrPgbZy1yeUt0 wFdfDjyjZCO4Elp3QC8obw 97cuo3vJmdNYImaybwMcX4 OKfiLIVfypslZJl8YTmvLS JnbDcyMFxtYXJncjcyMFxt YXJndDcyMFxtYXJnYjcyMF bnWGPdJYQ6DQfkq376XLV2 HZpam7flo6qnvADqUar6MR HjEeEzQcvmBByhy2Gar1wu IBYljl1lHJK7mHGjbRzjh4 V2cOWcFNDnyBUlvcKiOPMs TqP3UDjcXI9tda73LDJqIZ W0uk1mcFKhgEvfggNbhDYw LObhX4UdMUIfz090TJSoM9 FzFVTvs7T4wuGvJpRsDSYx bFI5boV4MNEfINm2yBRgdn U9oyNwdUBcY1yksA26HzVm iXRwH2XpoF66ReRgsIIsW1 AkoT12JaQzrWIzV4EjuA74 JcVziAMeQWRhqSGiBz0cpX DqzEQyh8ArcYJrIJzeF20k u518SYOptbSiL8xelOHvrm swdGRfiwevKNewcxH7EAFc XHBsYWluXGYxXGZzMjBcbG FuZzEwMzNcaGljaFxmMVxk CeUpKHUsCPepL9mqYnQbSp VfNUQCiRxpjXCtuCG7ucGy LFEsQlWyqV1zROTqlOJ4n0 I2PF0pCGhvLtgbtDTseKpl GpAdeBYhwM04tnTfQKyzNF YgmhAfqo4vULBbFcF1oKAb bykpzVUijY93DVJnmX0cUJ ZcdQ0pJCIvcs2= SPECIMEN SOURCE (test c4xrgGJwLFVsfAMrUsUaUU code = 3377) YjFWAry9jxMIJkuNFdWsRf MzNcZnRuYmpcdWMxXGRlZm Fhc1vtj427pOSte5ryYSYc PoA6tNKmNKJofKOyG069DV MlIGtit0bcp0QwEMTntQSf p0R3MLNWxmtidDp4rKnkI5 4wg6W5VjfvM1lcCTUyNPLk L0FtVZ3qEKTfSwz9CET9KS Y9PIZoZNLkL0HaKO7uTJCe dWQpPFm3l0fkvGasBJCsPX C2e5jaWImjcxPwER1ryr8k oQp1b6wbavUyUVFmLDVtaA HUHMTaA2AkjNjjRa9rwYl0 fPsxGjtuREM4Nxd1UK9hfu 66jdx1fWnuLMOecixyOgE7 AQxgBNWcoxgcVWg2HLjyBL JnbDcyMFxtYXJncjcyMFxt YXJndDcyMFxtYXJnYjcyMF snCCDhCKO2CPext098BFE3 IAxke0odj3ufbFEnOrn7ZE JwCtTwSzqiAHfut2Vxj1gg PQQtup4qVGM7mESmyKjgx2 I3wSAlNAOuuZNhblGlPCCi FeK3QXodRL2bbl66TSOnFA G6bl9yyNHloNijdkHksHCg OWmgK5WmMLWxb560OGBmF0 SnWYSwe1W1fwXoWnWxPAMe bAQ1hdH2GBCuJIs0eYZmpf P1cgOqjDVcW1xhbM73MwMe bUJjB4PgjX92HrCmtYZvO4 ReoT05XjIkgBZsI9TomO39 McQhnYFvKCGduGPoEp1njL DdeZAov4IkiWDyHFrlN97t b475DDCazzYrQ9zmmEOrua fitJSqklwrUSibbvS2UZAx XHBsYWluXGYxXGZzMjBcbG FuZzEwMzNcaGljaFxmMVxk MlIlGDNaRCviR9piKtDaKj MyMCBQTEVVUkFMLCBSSUdI VCBGTFVJRFxwYXJ9 GROSS DESCRIPTION (test q4uluLDpNONyyNPrVcWxBJ code = 3366) RdMJMxj6aoCCPttGRmShRz MzNcZnRuYmpcdWMxXGRlZm Zzd8klz949xUSfj7alYFPt PuE3vQLlNYNdxLSnU917YJ QnVCmcr6ehx9NmBLAgrXCk v4R1XLVIihoyiYw0wGqeQ4 9dc2P3YrcxS6gcPPFfAUYo B5KuKW1pMTHpCbb8VXW2MJ J7GTWgFHDcZ0KjFW4vETPb fWTgFXz3t6unlMbjKVXzKS F9q0crBUbkgaAsKB4dcx7o oFf6u2woaoSrVYRaPCXtwD GYSALdF2MdlKsjBy1pmPt6 fXtjYhjxNXN0Iop8SH0lsh 43vqg7sRikJLQuptjfNwS5 LOrbOGIfoimeMXo6MFcdGI JnbDcyMFxtYXJncjcyMFxt YXJndDcyMFxtYXJnYjcyMF iaLVXuPVO1JSuhx822XHF1 HYvxi8agm4zgfZWtVjd7TB FpQuGzTysdHUbco9Zvn8xw ZUBhzv3wKQK6rMDigPzkz8 A6zPSzKJTjlPTmguSmFPJz CtD7ZTesPM1cyo84WUOlEM K2ck8eyPPrfFwmxoHlfTJt JQhoA1WzZYGnt673HCAmK8 IuTBNip9D3gjTeQbNlJDTr dLJ4syJ3GETfPUh0tKXxfw D6ekLfgCLrN1retI42KdRs wJGzB6OktJ64JaGkjATsL1 BksL21PzNgqAVjH5GtwW84 KvPzvSSfHAQbfRDwUx6akV AujMTwa5UtcDXgLGpuI46w t211NNZkhmNaO8gavLUafc wjnRSrdbqoBNjfgcT2MDVd XHBsYWluXGYxXGZzMjJcbG FuZzEwMzNcaGljaFxmMVxk IvQyZCUwZKsbD2cmCvGoSw BpUaInPZNmYB8ubsHpaMBw ciBmbHVpZDsgNCBjeXRvc3 VmcbZgORLrvRklBcvoE8xc yWVhBMJldLoyG1MyCZzmHK YxMjIwXHBhciBSZWNlaXZl ZDogMDYxNTIwXHBhcn0= STATEMENT OF ADEQUACY Satisfactory (test code = 2757) Gross assessment was [facility] performed at ([facility], = 2777) Department of Pathology, [address] [place] [address], Technical component was [facility] performed at ([facility], = 2778) Department of Pathology, [address] [place] [address], Professional component [facility] was performed at ([facility], code = 2779) Department of Pathology, [address] [place] [address], [facility] 13:38:00Medical Cytology Report Case: [id number] Aut horizing Provider: Yoly Qiu NP Collected: 11/16/2019 05:02 PM Ordering Location: [place] [address] ccu Received: 11/19/2019 11:07 AM Pathologist: Tate Barksdale MD Specimen: Pleural, Right PLEURAL, RIGHT, FLUID (CYTOSPINS AND CELL BLOCK): - NEGATIVE FOR MALIGNANCY - Reactive mesothelial cells present Signing Pathologist Direct Phone Line: [phone] signed by Tate Barksdale MD on 11/20/2019 at 1:38 [id number], [id number] pleural effusion, history of infiltrating squamous cell carcinoma of the right lower lobe lungPLEURAL, RIGHT [id number] mls bri fluid; 4 cytospins, cellblockCollected: [id number]: [id number] [facility], [facility] of [facility]ology, [address] [place] [address], [facility], [address] [place] [address], [facility], [facility] of [facility], [address] [place] [address], VLECSHXBQ 2019-11-20 05:18:00 Test Item Value Reference Range Interpretation Comments MAGNESIUM (BEAKER) 2.2 mg/dL 1.6-2.6 Specimen slightly (test code = 627) hemolyzed Software Controls Engineer ID - RUFUS [id number] 05:18:00 Test Item Value Reference Range Interpretation Comments PHOSPHORUS (BEAKER) 4.0 mg/dL 2.3-4.7 Specimen slightly (test code = 604) hemolyzed Software Controls Engineer ID - RUFUS MBASIC METABOLIC [id number] 05:18:00 Test Item Value Reference Range Interpretation Comments SODIUM (BEAKER) 135 meq/L 136-145 L (test code = 381) POTASSIUM (BEAKER) 3.4 meq/L 3.5-5.1 L Specimen slightly (test code = 379) hemolyzed CHLORIDE (BEAKER) 98 meq/L 98-107 (test code = 382) CO2 (BEAKER) (test 30 meq/L 22-29 H code = 355) BLOOD UREA NITROGEN 28 mg/dL 7-21 H (BEAKER) (test code = 354) CREATININE (BEAKER) 1.00 mg/dL 0.57-1.25 Specimen slightly (test code = 358) hemolyzed GLUCOSE RANDOM 107 mg/dL 70-105 H (BEAKER) (test code = 652) CALCIUM (BEAKER) 8.1 mg/dL 8.4-10.2 L (test code = 697) EGFR (BEAKER) (test 71 mL/min/1.73 ESTIMA MANDO GFR IS code = 1092) sq m NOT ACCURATE CREATININE CLEARANCE IN PREDICTING GLOMERULAR FILTRATION RATE . ESTIMATED GFR I S NOT APPLICABLE FOR DIALYSIS PATIEN TS. Software Controls Engineer ID - RUFUS MCBC W/PLT COUNT & AUTO [id number] 05:05:00 Test Item Value Reference Range Interpretation Comments WHITE BLOOD CELL COUNT (BEAKER) 10.2 K/ L 3.5-10.5 (test code = 775) RED BLOOD CELL COUNT (BEAKER) 3.54 M/ L 4.63-6.08 L (test code = 761) HEMOGLOBIN (BEAKER) (test code = 10.2 GM/DL 13.7-17.5 L 410) HEMATOCRIT (BEAKER) (test code = 31.9 % 40.1-51.0 L 411) MEAN CORPUSCULAR VOLUME (BEAKER) 90.1 fL 79.0-92.2 (test code = 753) MEAN CORPUSCULAR HEMOGLOBIN 28.8 pg 25.7-32.2 (BEAKER) (test code = 751) MEAN CORPUSCULAR HEMOGLOBIN CONC 32.0 GM/DL 32.3-36.5 L (BEAKER) (test code = 752) RED CELL DISTRIBUTION WIDTH 13.7 % 11.6-14.4 (BEAKER) (test code = 412) PLATELET COUNT (BEAKER) (test 184 K/CU MM 150-450 code = 756) MEAN PLATELET VOLUME (BEAKER) 9.9 fL 9.4-12.4 (test code = 754) NUCLEATED RED BLOOD CELLS 0 /100 WBC 0-0 (BEAKER) (test code = 413) NEUTROPHILS RELATIVE PERCENT 77 % (BEAKER) (test code = 429) LYMPHOCYTES RELATIVE PERCENT 9 % (BEAKER) (test code = 430) MONOCYTES RELATIVE PERCENT 9 % (BEAKER) (test code = 431) EOSINOPHILS RELATIVE PERCENT 4 % (BEAKER) (test code = 432) BASOPHILS RELATIVE PERCENT 1 % (BEAKER) (test code = 437) NEUTROPHILS ABSOLUTE COUNT 7.87 K/ L 1.78-5.38 H (BEAKER) (test code = 670) LYMPHOCYTES ABSOLUTE COUNT 0.88 K/ L 1.32-3.57 L (BEAKER) (test code = 414) MONOCYTES ABSOLUTE COUNT (BEAKER) 0.92 K/ L 0.30-0.82 H (test code = 415) EOSINOPHILS ABSOLUTE COUNT 0.37 K/ L 0.04-0.54 (BEAKER) (test code = 416) BASOPHILS ABSOLUTE COUNT (BEAKER) 0.08 K/ L 0.01-0.08 (test code = 417) IMMATURE GRANULOCYTES-RELATIVE 1 % 0-1 PERCENT (BEAKER) (test code = 2801) RAD, CHEST, 1 VIEW, NON [id number] 03:29:00Reason for exam:->RLL Carcinoma, frequent pleural effusion.Should this be performed at the bedside ?->YesFINAL REPORT RAD, CHEST, 1 VIEW, NON DEPT INDICATION: RLL Carcinoma, frequentpleural effusion. COMPARISON: Prior day's exam FINDINGS: Portable frontal view of the chest. IMPRESSION: Support Lines: Stable. Lungs and pleura: Unchanged bilateral parenchymal opacities and dense r ight lower dense opacity. Lucency along the right lateral hemithorax with traversing lung markings favored to be a skinfold and less likely a small pneumothorax. Recommend attention to on follow-up.Heart and mediastinum: Stable contours. Additional findings: None. Signed: Mayela Caraballo MDRepssm rehab Verified Date/Time: 11/20/2019 03:29:54 [id number] 04:48:00 Test Item Value Reference Range Interpretation Comments MAGNESIUM (BEAKER) 2.1 mg/dL 1.6-2.6 Specimen slightly (test code = 627) hemolyzed Software Controls Engineer ID - PIAYA LBASIC METABOLIC [id number] 04:48:00 Test Item Value Reference Range Interpretation Comments SODIUM (BEAKER) 135 meq/L 136-145 L (test code = 381) POTASSIUM (BEAKER) 3.5 meq/L 3.5-5.1 Specimen slightly (test code = 379) hemolyzed CHLORIDE (BEAKER) 101 meq/L 98-107 (test code = 382) CO2 (BEAKER) (test 25 meq/L 22-29 code = 355) BLOOD UREA NITROGEN 26 mg/dL 7-21 H (BEAKER) (test code = 354) CREATININE (BEAKER) 1.01 mg/dL 0.57-1.25 Specimen slightly (test code = 358) hemolyzed GLUCOSE RANDOM 116 mg/dL 70-105 H (BEAKER) (test code = 652) CALCIUM (BEAKER) 8.1 mg/dL 8.4-10.2 L (test code = 697) EGFR (BEAKER) (test 70 mL/min/1.73 ESTIMA MANDO GFR IS code = 1092) sq m NOT ACCURATE CREATININE CLEARANCE IN PREDICTING GLOMERULAR FILTRATION RATE . ESTIMATED GFR I S NOT APPLICABLE FOR DIALYSIS PATIEN TS. Software Controls Engineer ID - PISHER [id number] 04:21:00 Test Item Value Reference Range Interpretation Comments PHOSPHORUS (BEAKER) 3.7 mg/dL 2.3-4.7 Specimen slightly (test code = 604) hemolyzed Software Controls Engineer ID - PEACE LRAD, CHEST, 1 VIEW, NON [id number] 03:54:00Reason for exam:->RLL Carcinoma, frequent pleural effusion.Should this be performed at the bedside?->YesFINAL REPORT RAD, CHEST, 1 VIEW, NON DEPT INDICATION: RLL Carcinoma, frequentpleural effusion. COMPARISON: Prior day's exam FINDINGS: Portable frontal view of the chest. IMPRESSION: Support Lines: Stable. Lungs and pleura: Unchanged airspace and pleural opacities. No pneumothorax.Heart and mediastinum: Stable contours. Stable surgical changes.Additional findings: None. Signed: Beverly Ugarte Verified Date/Time: 11/19/2019 03:54:04 CBC W/PLT COUNT & AUTO DIFFERENTIAL 2019-11-19 03:36:00 Test Item Value Reference Range Interpretation Comments WHITE BLOOD CELL COUNT (BEAKER) 13.5 K/ L 3.5-10.5 H (test code = 775) RED BLOOD CELL COUNT (BEAKER) 3.50 M/ L 4.63-6.08 L (test code = 761) HEMOGLOBIN (BEAKER) (test code = 10.0 GM/DL 13.7-17.5 L 410) HEMATOCRIT (BEAKER) (test code = 31.4 % 40.1-51.0 L 411) MEAN CORPUSCULAR VOLUME (BEAKER) 89.7 fL 79.0-92.2 (test code = 753) MEAN CORPUSCULAR HEMOGLOBIN 28.6 pg 25.7-32.2 (BEAKER) (test code = 751) MEAN CORPUSCULAR HEMOGLOBIN CONC 31.8 GM/DL 32.3-36.5 L (BEAKER) (test code = 752) RED CELL DISTRIBUTION WIDTH 14.0 % 11.6-14.4 (BEAKER) (test code = 412) PLATELET COUNT (BEAKER) (test 182 K/CU MM 150-450 code = 756) MEAN PLATELET VOLUME (BEAKER) 10.1 fL 9.4-12.4 (test code = 754) NUCLEATED RED BLOOD CELLS 0 /100 WBC 0-0 (BEAKER) (test code = 413) NEUTROPHILS RELATIVE PERCENT 84 % (BEAKER) (test code = 429) LYMPHOCYTES RELATIVE PERCENT 6 % (BEAKER) (test code = 430) MONOCYTES RELATIVE PERCENT 6 % (BEAKER) (test code = 431) EOSINOPHILS RELATIVE PERCENT 2 % (BEAKER) (test code = 432) BASOPHILS RELATIVE PERCENT 1 % (BEAKER) (test code = 437) NEUTROPHILS ABSOLUTE COUNT 11.37 K/ L 1.78-5.38 H (BEAKER) (test code = 670) LYMPHOCYTES ABSOLUTE COUNT 0.81 K/ L 1.32-3.57 L (BEAKER) (test code = 414) MONOCYTES ABSOLUTE COUNT (BEAKER) 0.84 K/ L 0.30-0.82 H (test code = 415) EOSINOPHILS ABSOLUTE COUNT 0.29 K/ L 0.04-0.54 (BEAKER) (test code = 416) BASOPHILS ABSOLUTE COUNT (BEAKER) 0.07 K/ L 0.01-0.08 (test code = 417) IMMATURE GRANULOCYTES-RELATIVE 1 % 0-1 PERCENT (BEAKER) (test code = 2801) Hemoglobin and [id number] 22:17:00 Test Item Value Reference Range Interpretation Comments Hemoglobin (test code = 10.1 13.7- 17.5 GM/DL L 786-4) Hematocrit (test code = 31.7 % 40.1-51 L 4544-3) FAIZA (test code = FAIZA) Software Controls Engineer ID - [id number] Lab Interpretation (test Abnormal code = 05366-1) [facility] [id number] 22:17:00 Test Item Value Reference Range Interpretation Comments HEMOGLOBIN (BEAKER) (test code = 10.1 GM/DL 13.7-17.5 L 410) HEMATOCRIT (BEAKER) (test code = 31.7 % 40.1-51.0 L 411) Software Controls Engineer ID - [id number] [id number] 20:00:00 Test Item Value Reference Range Interpretation Comments Result (test code = No growth in 5 days 6463-4) [facility] [id number] 20:00:00 Test Item Value Reference Range Interpretation Comments CULTURE (BEAKER) (test No growth in 5 days code = 1095) BLOOD [id number] 20:00:00 Test Item Value Reference Range Interpretation Comments CULTURE (BEAKER) (test No growth in 5 days code = 1095) [id number] 04:53:00 Test Item Value Reference Range Interpretation Comments PHOSPHORUS (BEAKER) (test code = 2.7 mg/dL 2.3-4.7 604) Software Controls Engineer ID - PEACE [id number] 04:53:00 Test Item Value Reference Range Interpretation Comments MAGNESIUM (BEAKER) (test code = 2.0 mg/dL 1.6-2.6 627) Software Controls Engineer ID - PEACE LBASIC METABOLIC [id number] 04:53:00 Test Item Value Reference Range Interpretation Comments SODIUM (BEAKER) 137 meq/L 136-145 (test code = 381) POTASSIUM (BEAKER) 3.4 meq/L 3.5-5.1 L (test code = 379) CHLORIDE (BEAKER) 102 meq/L 98-107 (test code = 382) CO2 (BEAKER) (test 26 meq/L 22-29 code = 355) BLOOD UREA NITROGEN 21 mg/dL 7-21 (BEAKER) (test code = 354) CREATININE (BEAKER) 0.91 mg/dL 0.57-1.25 (test code = 358) GLUCOSE RANDOM 104 mg/dL 70-105 (BEAKER) (test code = 652) CALCIUM (BEAKER) 8.0 mg/dL 8.4-10.2 L (test code = 697) EGFR (BEAKER) (test 79 mL/min/1.73 ESTIMA MANDO GFR IS code = 1092) sq m NOT ACCURATE CREATININE CLEARANCE IN PREDICTING GLOMERULAR FILTRATION RATE . ESTIMATED GFR I S NOT APPLICABLE FOR DIALYSIS PATIEN TS. Software Controls Engineer ID - PEACE LCBC W/PLT COUNT & AUTO [id number] 04:34:00 Test Item Value Reference Range Interpretation Comments WHITE BLOOD CELL COUNT (BEAKER) 13.6 K/ L 3.5-10.5 H (test code = 775) RED BLOOD CELL COUNT (BEAKER) 3.23 M/ L 4.63-6.08 L (test code = 761) HEMOGLOBIN (BEAKER) (test code = 9.2 GM/DL 13.7-17.5 L 410) HEMATOCRIT (BEAKER) (test code = 29.3 % 40.1-51.0 L 411) MEAN CORPUSCULAR VOLUME (BEAKER) 90.7 fL 79.0-92.2 (test code = 753) MEAN CORPUSCULAR HEMOGLOBIN 28.5 pg 25.7-32.2 (BEAKER) (test code = 751) MEAN CORPUSCULAR HEMOGLOBIN CONC 31.4 GM/DL 32.3-36.5 L (BEAKER) (test code = 752) RED CELL DISTRIBUTION WIDTH 14.0 % 11.6-14.4 (BEAKER) (test code = 412) PLATELET COUNT (BEAKER) (test 155 K/CU MM 150-450 code = 756) MEAN PLATELET VOLUME (BEAKER) 10.2 fL 9.4-12.4 (test code = 754) NUCLEATED RED BLOOD CELLS 0 /100 WBC 0-0 (BEAKER) (test code = 413) NEUTROPHILS RELATIVE PERCENT 82 % (BEAKER) (test code = 429) LYMPHOCYTES RELATIVE PERCENT 7 % (BEAKER) (test code = 430) MONOCYTES RELATIVE PERCENT 7 % (BEAKER) (test code = 431) EOSINOPHILS RELATIVE PERCENT 3 % (BEAKER) (test code = 432) BASOPHILS RELATIVE PERCENT 0 % (BEAKER) (test code = 437) NEUTROPHILS ABSOLUTE COUNT 11.13 K/ L 1.78-5.38 H (BEAKER) (test code = 670) LYMPHOCYTES ABSOLUTE COUNT 0.92 K/ L 1.32-3.57 L (BEAKER) (test code = 414) MONOCYTES ABSOLUTE COUNT (BEAKER) 1.01 K/ L 0.30-0.82 H (test code = 415) EOSINOPHILS ABSOLUTE COUNT 0.43 K/ L 0.04-0.54 (BEAKER) (test code = 416) BASOPHILS ABSOLUTE COUNT (BEAKER) 0.05 K/ L 0.01-0.08 (test code = 417) IMMATURE GRANULOCYTES-RELATIVE 1 % 0-1 PERCENT (BEAKER) (test code = 2801) RAD, CHEST, 1 VIEW, NON [id number] 03:41:00Reason for exam:->RLL Carcinoma, frequent pleural effusion.Should this be performed at the bedside ?->YesFINAL REPORT RAD, CHEST, 1 VIEW, NON DEPT INDICATION: RLL Carcinoma, frequentpleural effusion. COMPARISON: Prior day's exam FINDINGS: Portable frontal view of the chest. IMPRESSION: Support Lines: Stable right PICC Lungs and pleura: Airspace and pleural opacities are unchange d. No pneumothorax.Heart and mediastinum: Stable contours. Additional findings: None. Signed: Mayela Caraballo MDReport Verified Date/Time: 11/18/2019 03:41:12 MAGNESIUM 2019-11-17 18:29:00 Test Item Value Reference Range Interpretation Comments MAGNESIUM (BEAKER) (test code = 2.3 mg/dL 1.6-2.6 627) Software Controls Engineer ID - DBBASIC METABOLIC [id number] 18:29:00 Test Item Value Reference Range Interpretation Comments SODIUM (BEAKER) 134 meq/L 136-145 L (test code = 381) POTASSIUM (BEAKER) 3.8 meq/L 3.5-5.1 (test code = 379) CHLORIDE (BEAKER) 102 meq/L 98-107 (test code = 382) CO2 (BEAKER) (test 27 meq/L 22-29 code = 355) BLOOD UREA NITROGEN 20 mg/dL 7-21 (BEAKER) (test code = 354) CREATININE (BEAKER) 1.04 mg/dL 0.57-1.25 (test code = 358) GLUCOSE RANDOM 111 mg/dL 70-105 H (BEAKER) (test code = 652) CALCIUM (BEAKER) 8.0 mg/dL 8.4-10.2 L (test code = 697) EGFR (BEAKER) (test 68 mL/min/1.73 ESTIMA MANDO GFR IS code = 1092) sq m NOT ACCURATE CREATININE CLEARANCE IN PREDICTING GLOMERULAR FILTRATION RATE . ESTIMATED GFR I S NOT APPLICABLE FOR DIALYSIS PATIEN TS. Software Controls Engineer ID - DBHEMOGLOBIN AND [id number] 18:08:00 Test Item Value Reference Range Interpretation Comments HEMOGLOBIN (BEAKER) (test code = 9.4 GM/DL 13.7-17.5 L 410) HEMATOCRIT (BEAKER) (test code = 29.9 % 40.1-51.0 L 411) Software Controls Engineer ID - [id number] free [id number] 12:52:00 Test Item Value Reference Range Interpretation Comments Hgb, Plasma (test code = 721-1) 40.0 mg/dl 0-30 H Lab Interpretation (test code = Abnormal 79181-9) [facility] [id number] 12:52:00 Test Item Value Reference Range Interpretation Comments HEMOGLOBIN PLASMA (BEAKER) (test 40.0 mg/dl 0.0-30.0 H code = 1054) HEMOGLOBIN AND [id number] 12:25:00 Test Item Value Reference Range Interpretation Comments HEMOGLOBIN (BEAKER) (test code = 10.0 GM/DL 13.7-17.5 L 410) HEMATOCRIT (BEAKER) (test code = 31.8 % 40.1-51.0 L 411) Software Controls Engineer ID - [id number], CHEST, 1 VIEW, NON [id number] 05:00:00Reason for exam:->RLL Carcinoma, frequent pleural effusion.Should this be performed at the bedside?->YesFINAL REPORT RAD, CHEST, 1 VIEW, NON DEPT INDICATION: RLL Carcinoma, frequentpleural effusion. COMPARISON: Prior day's exam FINDINGS: Portable frontal view of the chest. IMPRESSION: Support Lines: Stable right PICC. Lungs and pleura: Unchanged right basilar airspace opacity and trace right pleural effusion. Venous congestion is unchanged. No new consolidation. No pneumothorax.Heart and mediastinum: Stable contours. Additional findings: None. Signed: Mayela Caraballoeport Verified Date/Time: 11/17/2019 05:00:17 Electronically signed by: MAYELA CARABALLO MD on 11/16 05:00 AMBASIC METABOLIC [id number] 04:21:00 Test Item Value Reference Range Interpretation Comments SODIUM (BEAKER) 139 meq/L 136-145 (test code = 381) POTASSIUM (BEAKER) 3.9 meq/L 3.5-5.1 Specimen slightly (test code = 379) hemolyzed CHLORIDE (BEAKER) 105 meq/L 98-107 (test code = 382) CO2 (BEAKER) (test 28 meq/L 22-29 code = 355) BLOOD UREA NITROGEN 16 mg/dL 7-21 (BEAKER) (test code = 354) CREATININE (BEAKER) 1.00 mg/dL 0.57-1.25 Specimen slightly (test code = 358) hemolyzed GLUCOSE RANDOM 145 mg/dL 70-105 H (BEAKER) (test code = 652) CALCIUM (BEAKER) 7.9 mg/dL 8.4-10.2 L (test code = 697) EGFR (BEAKER) (test 71 mL/min/1.73 ESTIMA MANDO GFR IS code = 1092) sq m NOT ACCURATE CREATININE CLEARANCE IN PREDICTING GLOMERULAR FILTRATION RATE . ESTIMATED GFR I S NOT APPLICABLE FOR DIALYSIS PATIEN TS. Software Controls Engineer ID - RUFUS [id number] 04:18:00 Test Item Value Reference Range Interpretation Comments MAGNESIUM (BEAKER) 1.9 mg/dL 1.6-2.6 Specimen slightly (test code = 627) hemolyzed Software Controls Engineer ID - RUFUS [id number] 04:18:00 Test Item Value Reference Range Interpretation Comments PHOSPHORUS (BEAKER) 2.7 mg/dL 2.3-4.7 Specimen slightly (test code = 604) hemolyzed Software Controls Engineer ID - RUFUS MCBC W/PLT COUNT & AUTO [id number] 03:59:00 Test Item Value Reference Range Interpretation Comments WHITE BLOOD CELL COUNT (BEAKER) 16.6 K/ L 3.5-10.5 H (test code = 775) RED BLOOD CELL COUNT (BEAKER) 3.18 M/ L 4.63-6.08 L (test code = 761) HEMOGLOBIN (BEAKER) (test code = 9.1 GM/DL 13.7-17.5 L 410) HEMATOCRIT (BEAKER) (test code = 29.5 % 40.1-51.0 L 411) MEAN CORPUSCULAR VOLUME (BEAKER) 92.8 fL 79.0-92.2 H (test code = 753) MEAN CORPUSCULAR HEMOGLOBIN 28.6 pg 25.7-32.2 (BEAKER) (test code = 751) MEAN CORPUSCULAR HEMOGLOBIN CONC 30.8 GM/DL 32.3-36.5 L (BEAKER) (test code = 752) RED CELL DISTRIBUTION WIDTH 14.0 % 11.6-14.4 (BEAKER) (test code = 412) PLATELET COUNT (BEAKER) (test 182 K/CU MM 150-450 code = 756) MEAN PLATELET VOLUME (BEAKER) 10.1 fL 9.4-12.4 (test code = 754) NUCLEATED RED BLOOD CELLS 0 /100 WBC 0-0 (BEAKER) (test code = 413) NEUTROPHILS RELATIVE PERCENT 83 % (BEAKER) (test code = 429) LYMPHOCYTES RELATIVE PERCENT 6 % (BEAKER) (test code = 430) MONOCYTES RELATIVE PERCENT 8 % (BEAKER) (test code = 431) EOSINOPHILS RELATIVE PERCENT 2 % (BEAKER) (test code = 432) BASOPHILS RELATIVE PERCENT 0 % (BEAKER) (test code = 437) NEUTROPHILS ABSOLUTE COUNT 13.89 K/ L 1.78-5.38 H (BEAKER) (test code = 670) LYMPHOCYTES ABSOLUTE COUNT 0.91 K/ L 1.32-3.57 L (BEAKER) (test code = 414) MONOCYTES ABSOLUTE COUNT (BEAKER) 1.38 K/ L 0.30-0.82 H (test code = 415) EOSINOPHILS ABSOLUTE COUNT 0.26 K/ L 0.04-0.54 (BEAKER) (test code = 416) BASOPHILS ABSOLUTE COUNT (BEAKER) 0.06 K/ L 0.01-0.08 (test code = 417) IMMATURE GRANULOCYTES-RELATIVE 1 % 0-1 PERCENT (BEAKER) (test code = 2801) RAD, CHEST, 1 VIEW, NON [id number] 17:55:00Reason for exam:->post right sided thoracentesisShould this be performed at the bedside?->YesFINAL REPORT RAD, CHEST, 1 VIEW, NON DEPT INDICATION: post right sided thoracentesis COMPARISON: Prior day's exam FINDINGS: Portable frontal view of the chest. IMPRESSION: Support Lines: Interval extubation. The visualized atriocaval junction. NG tube is no longer seen and has likely been. Cardiac valvular prosthesis is present. Lungs and pleura: Bilateral effusions are not s ignificantly changed. There is no interstitial thickening is again noted. No pneumothorax.Heart and mediastinum: Stable contours. Additional findings: None. Signed: Madison Davison VerifiedDate/Time: 11/16/2019 17:55:32 Reading Location: [address] Neuro Reading Room Transesophageal echo 2019-11-16 13:45:22Ejection FractionSLEH ECHO HEARTLAB MKCKESSON CPACSInterface, External Ris In - 11/16/2019 1:45 PM CDTTransesophageal Echocardiography Report (MAKAYLA) Demographics Patient Name MAYRA, Date of Study 11/15/2019 ARTHUR Gender Male Visit Number [id number] Race Unknown Room Number 6104 Number Date of 1930 Referring Physician Gabriel Streeter MD Age 89 year(s) Check Weigher Rex Hein Interpreting Gabriel Streeter MD Physician Procedure Type of Study MAKAYLA procedure:TRANSESOPHAGEAL ECHO Indications:TAVR.Clinical HistoryCHF,HTNHeight: 68.5 inches Weight: 68.04 kg (150 lbs) BSA: 1.82 m^2 BMI: 22.48kg/m^2HR: 86 bpm BP: 95/59 mmHg Summary Procedural [...] Post procedural MAKAYLA 1. 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 2. Improved LV systolic function with stable RV systolic function. 3. No pericardial effusion. Signature Findings Rhythm/BP Interventional MAKAYLA (cpt 94379) for guidance of percutaneous intracardiac procedure. 3D imaging (cpt 48928) rendering with interpretation was performed. Left The left ventricle is chamber size is [...] of aortic regurgitation. Severe aortic stenosis. Mitral Valve Mild MV leaflet calcification. Mild mitral annular calcification. Mild mitral regurgitation. Tricuspid Mild TV leaflet thickening. Valve Mild tricuspid regurgitation. Pulmonic Mild PV leafletthickening. Valve Normal PV structure and function by limited views and Doppler. Pericardium No significant pericardial effusion is visualized based on available views.[facility]/Doppler(CW/PW/Color)2019-11-16 13:41:49Ejection FractionSLEH ECHO HEARTLAB MKCKESSON CPACSInterface, External Ris In - 11/16/2019 1:41 PM CDTTransthoracic Echocardiography Report (TTE) Demographics Patient Name MAYRA, Date of Study 11/16/2019 ARTHUR Gender Male Visit Number [id number] Race Unknown Room Number 6104 Number Date of 1930 Referring Physician ALEXANDER MUNSON Age 89 year(s) Check Weigher Britni Prabhakar [facility] Transit Man Patrick Wilson Interpreting Gabriel Streeter MD Physician ProcedureType of Study TTE procedure:2DECHO W DOPPLER(CW/PW/COLOR) (STAT) Indications:S/P TAVR and Acute Chest Pain/ Suspected CAD.Clinical HistoryCHF;HTN;R&L CATH/CA 11/05/19;ROMARIO 11/15/19(SAPIEN3 26 mm)Contrast Medium: Definity.Height: 68.5 inches Weight: 68.04 kg (150 lbs) BSA: 1.82 m^2 BMI: 22.48kg/m^2HR: 74 bpm BP: 101/58 mmHg Summary 1. The left ventricle is chamber size (by vol index) is normal. No rmal LV wall thickness. All of the LV [...] SALIMA 1.99 cm2. 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 4. Mild to moderate mitral regurgitation. Udir-pd-zsthxjxa tricuspid regurgitation Previous Study In comparison with the prior exam 11/02/2019 the following changes are noted: S/P TAVR . Signature Findings Left Ventricle LV endocardium is adequately visualized with IV ultrasound enhancing agent. The left ventricle is chamber size (by vol index) is normal (male - LVED vol - 34-74ml/m2). Normal LV wall thickness. All of the LV segments contract normally . Global LV systolic function lower limits of normal . Estimated LVEF by qualitative assessment is lower limits of normal (50-55%) . Degree of diastolic dysfunction (LAP assessment) is inconclusive due to arrhythmia . Left Atrium LA size is severely enlarged (>48 ml/m2) . Right Ventricle Normal right ventricle structure and function. Right Atrium RA cavity sizeis mildly enlarged . Aortic Valve A percutaneous (TAVR) biologic AoV prosthesis is visualized . The prosthetic AoV appears well-seated with normal function by Doppler. AoV dimensionless obstructive index (DOI)) is 0.62 .Peak Grad; 27 mmHg ,Mean Grad; 12.5 mmHg, SALIMA 1.99 cm2. 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 Prosthetic AR locations(s) are paravalvular at approximately 11 to 1 o''clock. . Mitral Valve Mild MV leaflet thickening. Mild to moderate mitral regurgitation. Tricuspid Valve Ruqx-rt-qodqamqa tricuspid regurgitation. Estimated peak systolic PA pressure is 45-50 mmHg (mild pulmonary hypertension) . Pulmonic Valve PV is not well visualized. Aorta Aortic root size (SInus of Valsalva diameter) is normal . Pericardium No evidence of pericardial effusion. IVC/SVC/PA/PV/Pleural The estimated RA pressure by IVC dynamics 16-20mmHg . Chambers/Structures Left Atrium LA Dimension: 3.57 cm LA Volume: 95.8 mlLA Vol. Index: 53 ml/m^2 Left Ventricle LVIDd: 5.32 cm LVEDV:117.97 ml LV Septum Diastolic: 0.93 cm LV PW Diastolic: 1.06 cm LVEDV Munson's:87.09 ml LVESV Munson's:42.93 ml LVEF Munson's: 50.7 % LVEDVI: 48 ml/m^2 LVESVI: 24 ml/m^2 LVOT Diameter: 2.03 cm Right Atrium RA Area: 18.87 cm^2 Aorta Ao Root S of Lindsay.: 3.65 cm Doppler/Quantitative Measurements Aortic Valve Peak Velocity: 2.62 m/s Mean Velocity: 1.61 m/s Peak Gradient: 27.47 mmHg Mean Gradient: 12.58 mmHg AV Area (continuity): 1.99 cm^2 AV VTI: 36.05 cm AV DVI: 0.62 LVOT Peak Velocity: 1.38 m/s Peak Gradient: 7.6 mmHg Mean Velocity: 0.76 m/s Mean Gradient: 3.02 mmHg LVOT Diameter: 2.03 cm LVOT VTI: 22.21 cm LVOT Area: 3.24 cm^2 LVOT SV:71.85 ml LVOT CO: 5.32 l/min LVOT CI: 2.92 l/min/m^2[facility] Prothrombin time/[id number] 12:12:00 Test Item Value Reference Range Interpretation Comments Protime (test code = 15.7 11.9- 14.2 H 5902-2) seconds INR (test code = 1.3 <=5.9 6301-6) FAIZA (test code = FAIZA) Effective 11/01/2018: PT Reference Range ChangeNew: 11.9-14.2 Previous: 11.7-14.7 RECOMMENDED COUMADIN/WARFARIN INR THERAPY RANGESSTANDARD DOSE: 2.0-3.0 Includes: PROPHYLAXIS for venous thrombosis, systemic embolization; TREATMENT for venous thrombosis and/or pulmonary embolus.HIGH RISK: Target INR is 2.5-3.5 for patients wiht mechanical heart valves. Lab Interpretation Abnormal (test code = 92959-3) [facility]PT/[id number] 12:12:00 Test Item Value Reference Range Interpretation Comments Protime (test code = 15.7 11.9- 14.2 H 5902-2) seconds INR (test code = 1.3 <=5.9 6301-6) PTT (test code = 37.0 22.5- 36.0 H 76730-9) seconds FAIZA (test code = FAIZA) Effective 11/01/2018: PT Reference Range ChangeNew: 11.9-14.2 Previous: 11.7-14.7 RECOMMENDED COUMADIN/WARFARIN INR THERAPY RANGESSTANDARD DOSE: 2.0-3.0 Includes: PROPHYLAXIS for venous thrombosis, systemic embolization; TREATMENT for venous thrombosis and/or pulmonary embolus.HIGH RISK: Target INR is 2.5-3.5 for patients wiht mechanical heart valves. Lab Interpretation Abnormal (test code = 55103-2) [facility] HospitalPROTHROMBIN TIME/[id number] 12:12:00 Test Item Value Reference Range Interpretation Comments PROTIME (BEAKER) (test code = 15.7 seconds 11.9-14.2 H 759) INR (BEAKER) (test code = 370) 1.3 <=5.9 Effective 11/01/2018: PT Reference Range ChangeNew: 11.9-14.2 Previous: 11.7- 14.7RECOMMENDED COUMADIN/WARFARIN INR THERAPY RANGESSTANDARD DOSE: 2.0-3.0 Includes: PROPHYLAXIS for venous thrombosis, systemic embolization; TREATMENT for venous thrombosis and/or pulmonary embolus.HIGH RISK: Target INR is2.5-3.5 for patients wiht mechanical heart valves.PT/[id number] 12:12:00 Test Item Value Reference Range Interpretation Comments PROTIME (BEAKER) (test code = 15.7 seconds 11.9-14.2 H 759) INR (BEAKER) (test code = 370) 1.3 <=5.9 PARTIAL THROMBOPLASTIN TIME 37.0 seconds 22.5-36.0 H (BEAKER) (test code = 760) Effective 11/01/2018: PT Reference Range ChangeNew: 11.9-14.2 Previous: 11.7- 14.7RECOMMENDED COUMADIN/WARFARIN INR THERAPY RANGESSTANDARD DOSE: 2.0-3.0 Includes: PROPHYLAXIS for venous thrombosis, systemic embolization; TREATMENT for venous thrombosis and/or pulmonary embolus.HIGH RISK: Target INR is2.5-3.5 for patients wiht mechanical heart valves.[id number] 10:07:00 Test Item Value Reference Range Interpretation Comments Haptoglobin (test code = 226 mg/dL 14-258 4542-7) FAIZA (test code = FAIZA) Software Controls Engineer ID - NTP Lab Interpretation (test Normal code = 64041-2) [facility]HAP[facility]GLOBIN2020-[facility] 10:07:00 Test Item Value Reference Range Interpretation Comments HAPTOGLOBIN (BEAKER) (test code = 226 mg/dL 14-258 366) Software Controls Engineer ID - NTPReticulocyte [id number] 09:49:00 Test Item Value Reference Range Interpretation Comments % Retic (test code = 1.6 % 0.5-1.8 10305-4) FAIZA (test code = FAIZA) Software Controls Engineer ID - [id number] Lab Interpretation (test Normal code = 24608-9) [facility] HospitalRETICULOCYTE [id number] 09:49:00 Test Item Value Reference Range Interpretation Comments RETICULOCYTE COUNT PCT (BEAKER) (test 1.6 % 0.5-1.8 code = 575) Software Controls Engineer ID - [id number] AND [id number] 09:49:00 Test Item Value Reference Range Interpretation Comments HEMOGLOBIN (BEAKER) (test code = 10.3 GM/DL 13.7-17.5 L 410) HEMATOCRIT (BEAKER) (test code = 31.7 % 40.1-51.0 L 411) Software Controls Engineer ID - [id number] dehydrogenase (LDH)2019-11-16 09:45:00 Test Item Value Reference Range Interpretation Comments LDH (test code = 2532-0) 191 U/L 125-220 FAIZA (test code = FAIZA) Software Controls Engineer ID - ABNERG Lab Interpretation (test Normal code = 38189-0) [facility]LACT[facility] DEHYDROGENASE (LDH)2019-11-16 09:45:00 Test Item Value Reference Range Interpretation Comments LACTATE DEHYDROGENASE (BEAKER) (test 191 U/L 125-220 code = 635) Software Controls Engineer ID - ABNERGRAD, CHEST, 1 VIEW, NON [id number] 04:46:00Reason for exam:->RLL Carcinoma, frequent pleural effusion.Should this be performed at the bedside?->YesFINAL REPORT RAD, CHEST, 1 VIEW, NON DEPT INDICATION: RLL Carcinoma, frequentpleural effusion. COMPARISON: Prior day's exam FINDINGS: Portable frontal view of the chest. IMPRESSION: Support Lines: Stable. Lungs and pleura: Unchanged airspace and pleural opacities. No pneumothorax.Heart and mediastinum: Stable contours. Stable surgical changes.Additional findings: None. Signed: Beverly Ugarte [facility] Verified Date/Time: 11/16/2019 04:46:58 Blood gas, [id number] 04:39:00 Test Item Value Reference Range Interpretation Comments pH, Arterial (test code = 2744-1) 7.53 7.35-7.45 H pCO2, Arterial (test code = 33 35- 45 mmHg L 2019-01) pO2, Arterial (test code = 2703-7) 180 80- 90 mmHg H O2 Sat, Arterial (test code = 99.4 % 96-97 H 2708-6) HCO3, Arterial (test code = 27 mmol/L -29 1959-4) Base Excess, Arterial (test code = 3.9 mmol/L -2-3 H 1925-7) Patient Temperature (test code = 37.0 C 8310-5) FIO2 (test code = 1819) 40 % Lab Interpretation (test code = Abnormal 61198-9) [facility] HospitalBLOOD GAS, [id number] 04:39:00 Test Item Value Reference Range Interpretation Comments PH ARTERIAL (BEAKER) (test code = 7.53 7.35-7.45 H 383) PCO2 ARTERIAL (BEAKER) (test code 33 mmHg 35-45 L = 384) PO2 ARTERIAL (BEAKER) (test code = 180 mmHg 80-90 H 385) O2 SATURATION ARTERIAL (BEAKER) 99.4 % 96.0-97.0 H (test code = 386) HCO3 ARTERIAL (BEAKER) (test code 27 mmol/L - = 388) BASE EXCESS ARTERIAL (BEAKER) 3.9 mmol/L -2.0-3.0 H (test code = 387) PATIENT TEMPERATURE (BEAKER) (test 37.0 C code = 1818) FIO2 (BEAKER) (test code = 1819) 40.0 % [id number] 03:16:00 Test Item Value Reference Range Interpretation Comments PHOSPHORUS (BEAKER) (test code = 4.2 mg/dL 2.3-4.7 604) Software Controls Engineer ID - RUFUS [id number] 03:16:00 Test Item Value Reference Range Interpretation Comments MAGNESIUM (BEAKER) (test code = 2.0 mg/dL 1.6-2.6 627) Software Controls Engineer ID - RUFUS MBASIC METABOLIC [id number] 03:16:00 Test Item Value Reference Range Interpretation Comments SODIUM (BEAKER) 138 meq/L 136-145 (test code = 381) POTASSIUM (BEAKER) 3.7 meq/L 3.5-5.1 (test code = 379) CHLORIDE (BEAKER) 103 meq/L 98-107 (test code = 382) CO2 (BEAKER) (test 26 meq/L 22-29 code = 355) BLOOD UREA NITROGEN 20 mg/dL 7-21 (BEAKER) (test code = 354) CREATININE (BEAKER) 1.18 mg/dL 0.57-1.25 (test code = 358) GLUCOSE RANDOM 151 mg/dL 70-105 H (BEAKER) (test code = 652) CALCIUM (BEAKER) 8.0 mg/dL 8.4-10.2 L (test code = 697) EGFR (BEAKER) (test 58 mL/min/1.73 ESTIMA MANDO GFR IS code = 1092) sq m NOT ACCURATE CREATININE CLEARANCE IN PREDICTING GLOMERULAR FILTRATION RATE . ESTIMATED GFR I S NOT APPLICABLE FOR DIALYSIS PATIEN TS. Software Controls Engineer ID - RUFUS MCBC W/PLT COUNT & AUTO [id number] 03:14:00 Test Item Value Reference Range Interpretation Comments WHITE BLOOD CELL COUNT (BEAKER) 19.5 K/ L 3.5-10.5 H (test code = 775) RED BLOOD CELL COUNT (BEAKER) 3.38 M/ L 4.63-6.08 L (test code = 761) HEMOGLOBIN (BEAKER) (test code = 9.8 GM/DL 13.7-17.5 L 410) HEMATOCRIT (BEAKER) (test code = 30.7 % 40.1-51.0 L 411) MEAN CORPUSCULAR VOLUME (BEAKER) 90.8 fL 79.0-92.2 (test code = 753) MEAN CORPUSCULAR HEMOGLOBIN 29.0 pg 25.7-32.2 (BEAKER) (test code = 751) MEAN CORPUSCULAR HEMOGLOBIN CONC 31.9 GM/DL 32.3-36.5 L (BEAKER) (test code = 752) RED CELL DISTRIBUTION WIDTH 13.8 % 11.6-14.4 (BEAKER) (test code = 412) PLATELET COUNT (BEAKER) (test 181 K/CU MM 150-450 code = 756) MEAN PLATELET VOLUME (BEAKER) 9.7 fL 9.4-12.4 (test code = 754) NUCLEATED RED BLOOD CELLS 0 /100 WBC 0-0 (BEAKER) (test code = 413) NEUTROPHILS RELATIVE PERCENT 89 % (BEAKER) (test code = 429) LYMPHOCYTES RELATIVE PERCENT 3 % (BEAKER) (test code = 430) MONOCYTES RELATIVE PERCENT 7 % (BEAKER) (test code = 431) EOSINOPHILS RELATIVE PERCENT 0 % (BEAKER) (test code = 432) BASOPHILS RELATIVE PERCENT 1 % (BEAKER) (test code = 437) NEUTROPHILS ABSOLUTE COUNT 17.27 K/ L 1.78-5.38 H (BEAKER) (test code = 670) LYMPHOCYTES ABSOLUTE COUNT 0.59 K/ L 1.32-3.57 L (BEAKER) (test code = 414) MONOCYTES ABSOLUTE COUNT (BEAKER) 1.35 K/ L 0.30-0.82 H (test code = 415) EOSINOPHILS ABSOLUTE COUNT 0.04 K/ L 0.04-0.54 (BEAKER) (test code = 416) BASOPHILS ABSOLUTE COUNT (BEAKER) 0.10 K/ L 0.01-0.08 H (test code = 417) IMMATURE GRANULOCYTES-RELATIVE 1 % 0-1 PERCENT (BEAKER) (test code = 2801) BLOOD GAS, [id number] 00:29:00 Test Item Value Reference Range Interpretation Comments PH ARTERIAL (BEAKER) (test code = 7.51 7.35-7.45 H 383) PCO2 ARTERIAL (BEAKER) (test code 34 mmHg 35-45 L = 384) PO2 ARTERIAL (BEAKER) (test code = 178 mmHg 80-90 H 385) O2 SATURATION ARTERIAL (BEAKER) 99.4 % 96.0-97.0 H (test code = 386) HCO3 ARTERIAL (BEAKER) (test code 27 mmol/L 21-29 = 388) BASE EXCESS ARTERIAL (BEAKER) 3.7 mmol/L -2.0-3.0 H (test code = 387) PATIENT TEMPERATURE (BEAKER) (test 37.0 C code = 1818) FIO2 (BEAKER) (test code = 1819) 40.0 % BLOOD GAS, [id number] 22:26:00 Test Item Value Reference Range Interpretation Comments PH ARTERIAL (BEAKER) (test code = 7.53 7.35-7.45 H 383) PCO2 ARTERIAL (BEAKER) (test code 31 mmHg 35-45 L = 384) PO2 ARTERIAL (BEAKER) (test code = 192 mmHg 80-90 H 385) O2 SATURATION ARTERIAL (BEAKER) 99.5 % 96.0-97.0 H (test code = 386) HCO3 ARTERIAL (BEAKER) (test code 26 mmol/L 21-29 = 388) BASE EXCESS ARTERIAL (BEAKER) 3.5 mmol/L -2.0-3.0 H (test code = 387) PATIENT TEMPERATURE (BEAKER) (test 37.0 C code = 1818) FIO2 (BEAKER) (test code = 1819) 40.0 % RAD, CHEST, 1 VIEW, NON [id number] 21:22:00Reason for exam:->post intubationShould this be performed at the bedside?->YesFINAL REPORT RAD, CHEST, 1 VIEW, NON DEPT INDICATION: post intubation COMPARIS ON: 's exam FINDINGS: Portable frontal view of the chest. IMPRESSION: Support Lines: Interval intubation with endotracheal tube terminating 3.0 cm above the ariana. Enteric tube is seen coursing below the diaphragm, terminating over the expected location of the gastric fundus. Interval placement of right IJ central venous catheter tip overlying the SVC. Cardiac device over the left heart. Otherwise unchanged support apparatus. Lungs and pleura: Unchanged airspace and pleural opacities. Nopneumothorax.Heart and mediastinum: Stable contours. Postsurgical changes of a cardiac valve repair.Additional findings: None. Signed: Beverly Ugarte Verified Date/Time: 11/15/2019 21:22:15 Comprehensive metabolic [id number] 17:23:00 Test Item Value Reference Range Interpretation Comments Protein, Total (test 5.5 6.0- 8.3 gm/dL L Speci men slightly code = 2885-2) hemolyzed Albumin (test code = 2.4 g/dL 3.5-5 L Specime n slightly 78889-2) hemolyzed Alkaline Phosphatase 54 U/L 40-150 (test code = 6768-6) Total Bilirubin (test 0.8 mg/dL 0.2-1.2 Specim en slightly code = 1975-2) hemolyzed Sodium (test code = 138 meq/L 428-116 5169-2) Potassium (test code = 3.5 meq/L 3.5-5.1 Speci men slightly 2823-3) hemolyzed Chloride (test code = 103 meq/L 98-107 2075-0) CO2 (test code = 25 meq/L 22-29 8-9) BUN (test code = 17 mg/dL 7-21 3094-0) Creatinine (test code 1.03 mg/dL 0.57-1.25 Specim en slightly = 2160-0) hemolyzed Glucose (test code = 164 mg/dL 70-105 H 2345-7) Calcium (test code = 8.4 mg/dL 8.4-10.2 00263-0) AST (test code = 19 U/L 5-34 Specimen sl ightly 1920-8) hemolyzed ALT (test code = 14 U/L 6-55 Specimen sl ightly 1742-6) hemolyzed EGFR (test code = 68 mL/min/1.73 [place] [address]-4) NOT ACCURATE CREATININE CLEARANCE IN PREDICTING GLOMERULAR FILTRATION RATE . ESTIMATED GFR I S NOT APPLICABLE FOR DIALYSIS PATIENTS. FAIZA (test code = FAIZA) Software Controls Engineer ID - BS Lab Interpretation Abnormal (test code = 49476-7) [facility] 17:23:00 Test Item Value Reference Range Interpretation Comments MAGNESIUM (BEAKER) 2.1 mg/dL 1.6-2.6 Specimen slightly (test code = 627) hemolyzed Software Controls Engineer ID - BSCOMPREHENSIVE METABOLIC [id number] 17:23:00 Test Item Value Reference Range Interpretation Comments TOTAL PROTEIN 5.5 gm/dL 6.0-8.3 L Specimen sligh tly (BEAKER) (test code = hemoly zed 770) ALBUMIN (BEAKER) 2.4 g/dL 3.5-5.0 L Specimen sl ightly (test code = 1145) hemolyzed ALKALINE PHOSPHATASE 54 U/L 40-150 (BEAKER) (test code = 346) BILIRUBIN TOTAL 0.8 mg/dL 0.2-1.2 Specimen sli ghtly (BEAKER) (test code = hemoly zed 377) SODIUM (BEAKER) (test 138 meq/L 136-145 code = 381) POTASSIUM (BEAKER) 3.5 meq/L 3.5-5.1 Specimen slightly (test code = 379) hemolyzed CHLORIDE (BEAKER) 103 meq/L 98-107 (test code = 382) CO2 (BEAKER) (test 25 meq/L 22-29 code = 355) BLOOD UREA NITROGEN 17 mg/dL 7-21 (BEAKER) (test code = 354) CREATININE (BEAKER) 1.03 mg/dL 0.57-1.25 Specimen slightly (test code = 358) hemolyzed GLUCOSE RANDOM 164 mg/dL 70-105 H (BEAKER) (test code = 652) CALCIUM (BEAKER) 8.4 mg/dL 8.4-10.2 (test code = 697) AST (SGOT) (BEAKER) 19 U/L 5-34 Specimen slightly (test code = 353) hemolyzed ALT (SGPT) (BEAKER) 14 U/L 6-55 Specimen slightly (test code = 347) hemolyzed EGFR (BEAKER) (test 68 mL/min/1.73 ESTIMA MANDO GFR IS code = 1092) sq m NOT ACCURATE CREATININE CLEARANCE IN PREDICTING GLOMERULAR FILTRATION RATE . ESTIMATED GFR I S NOT APPLICABLE FOR DIALYSIS PATIEN TS. Software Controls Engineer ID - BSBLOOD GAS, [id number] 17:07:00 Test Item Value Reference Range Interpretation Comments PH ARTERIAL (BEAKER) (test code = 7.51 7.35-7.45 H 383) PCO2 ARTERIAL (BEAKER) (test code 35 mmHg 35-45 = 384) PO2 ARTERIAL (BEAKER) (test code = 192 mmHg 80-90 H 385) O2 SATURATION ARTERIAL (BEAKER) 99.4 % 96.0-97.0 H (test code = 386) HCO3 ARTERIAL (BEAKER) (test code 27 mmol/L 21-29 = 388) BASE EXCESS ARTERIAL (BEAKER) 3.9 mmol/L -2.0-3.0 H (test code = 387) PATIENT TEMPERATURE (BEAKER) (test 37.0 C code = 1818) FIO2 (BEAKER) (test code = 1819) 60.0 % CBC W/PLT COUNT & AUTO [id number] 17:07:00 Test Item Value Reference Range Interpretation Comments WHITE BLOOD CELL COUNT (BEAKER) 18.4 K/ L 3.5-10.5 H (test code = 775) RED BLOOD CELL COUNT (BEAKER) 3.70 M/ L 4.63-6.08 L (test code = 761) HEMOGLOBIN (BEAKER) (test code = 10.6 GM/DL 13.7-17.5 L 410) HEMATOCRIT (BEAKER) (test code = 34.0 % 40.1-51.0 L 411) MEAN CORPUSCULAR VOLUME (BEAKER) 91.9 fL 79.0-92.2 (test code = 753) MEAN CORPUSCULAR HEMOGLOBIN 28.6 pg 25.7-32.2 (BEAKER) (test code = 751) MEAN CORPUSCULAR HEMOGLOBIN CONC 31.2 GM/DL 32.3-36.5 L (BEAKER) (test code = 752) RED CELL DISTRIBUTION WIDTH 13.8 % 11.6-14.4 (BEAKER) (test code = 412) PLATELET COUNT (BEAKER) (test 185 K/CU MM 150-450 code = 756) MEAN PLATELET VOLUME (BEAKER) 9.7 fL 9.4-12.4 (test code = 754) NUCLEATED RED BLOOD CELLS 0 /100 WBC 0-0 (BEAKER) (test code = 413) NEUTROPHILS RELATIVE PERCENT 85 % (BEAKER) (test code = 429) LYMPHOCYTES RELATIVE PERCENT 6 % (BEAKER) (test code = 430) MONOCYTES RELATIVE PERCENT 7 % (BEAKER) (test code = 431) EOSINOPHILS RELATIVE PERCENT 1 % (BEAKER) (test code = 432) BASOPHILS RELATIVE PERCENT 1 % (BEAKER) (test code = 437) NEUTROPHILS ABSOLUTE COUNT 15.65 K/ L 1.78-5.38 H (BEAKER) (test code = 670) LYMPHOCYTES ABSOLUTE COUNT 1.07 K/ L 1.32-3.57 L (BEAKER) (test code = 414) MONOCYTES ABSOLUTE COUNT (BEAKER) 1.20 K/ L 0.30-0.82 H (test code = 415) EOSINOPHILS ABSOLUTE COUNT 0.20 K/ L 0.04-0.54 (BEAKER) (test code = 416) BASOPHILS ABSOLUTE COUNT (BEAKER) 0.09 K/ L 0.01-0.08 H (test code = 417) IMMATURE GRANULOCYTES-RELATIVE 1 % 0-1 PERCENT (BEAKER) (test code = 2801) Prepare [id number] 16:14:00 Test Item Value Reference Range Interpretation Comments CROSSMATCH (test code = COMPATIBLE 7782) Unit ABO (test code = A Pos [id number]) UNIT NUMBER (test code = [id number] 934-0) Status (test code = RETURNED FROM ISSUE [id number]) Blood Bank Product (test RED BLOOD CELLS code = 2263) PRODUCT CODE (test code = L1553V72 933-2) [facility] [id number] 14:24:00 Test Item Value Reference Range Interpretation Comments Activated Clotting Time 252 sec : 74 -137 seconds, (test code = 441) Baseline: TESTED AT [facility] [address] [facility], [address] 30: Software Controls Engineer/Techni sophie ID = [id number] for JOLYNN CAMP [facility]PO[facility][id number] 14:24:00 Test Item Value Reference Range Interpretation Comments ACTIVATED CLOTTING TIME 252 sec : 74 -137 seconds, (BEAKER) (test code = Baseli ne: TESTED AT [facility]) [facility] [address] [place] [address], 7[address] 30: Software Controls Engineer/Techni sophie ID = [id number] for JOLYNN CAMP Calcium, [id number] 13:44:00 Test Item Value Reference Range Interpretation Comments Calcium, Ion (test code = 1994-3) 1.10 mmol/L 1.12-1.27 L pH, Blood (test code = 42643-0) 7.52 Lab Interpretation (test code = Abnormal 18750-4) [facility]Stat [id number] 13:44:00 Test Item Value Reference Range Interpretation Comments Hemoglobin (test code = 786-4) 11.4 g/dL 13-16.8 L Hematocrit (test code = 4544-3) 34.0 % 40-50 L Lab Interpretation (test code = Abnormal 51522-9) [facility]Glucose[facility]Stat [id number] 13:44:00 Test Item Value Reference Range Interpretation Comments Glucose (test code = 2345-7) 113 mg/dL 70-110 H Lab Interpretation (test code = Abnormal 22557-7) [facility] Na-Stat [id number] 13:44:00 Test Item Value Reference Range Interpretation Comments Sodium (test code = 2951-2) 133 meq/L 136-145 L Lab Interpretation (test code = Abnormal 74828-8) [facility], [id number] 13:44:00 Test Item Value Reference Range Interpretation Comments PH ARTERIAL (BEAKER) (test code = 7.53 7.35-7.45 H 383) PCO2 ARTERIAL (BEAKER) (test code 33 mmHg 35-45 L = 384) PO2 ARTERIAL (BEAKER) (test code = 170 mmHg 80-90 H 385) O2 SATURATION ARTERIAL (BEAKER) 99.3 % 96.0-97.0 H (test code = 386) HCO3 ARTERIAL (BEAKER) (test code 27 mmol/L 21-29 = 388) BASE EXCESS ARTERIAL (BEAKER) 4.1 mmol/L -2.0-3.0 H (test code = 387) PATIENT TEMPERATURE (BEAKER) (test 36.0 C code = 1818) FIO2 (BEAKER) (test code = 1819) 60.0 % SODIUM NA-STAT [id number] 13:44:00 Test Item Value Reference Range Interpretation Comments SODIUM (BEAKER) (test code = 381) 133 meq/L 136-145 L GLUCOSE-STAT [id number] 13:44:00 Test Item Value Reference Range Interpretation Comments GLUCOSE RANDOM (BEAKER) (test code 113 mg/dL 70-110 H = 652) HGB/HCT (H&H) - STAT [id number] 13:44:00 Test Item Value Reference Range Interpretation Comments HEMOGLOBIN (BEAKER) (test code = 11.4 g/dL 13.0-16.8 L 410) HEMATOCRIT (BEAKER) (test code = 34.0 % 40.0-50.0 L 411) CALCIUM, [id number] 13:44:00 Test Item Value Reference Range Interpretation Comments CALCIUM IONIZED (BEAKER) (test 1.10 mmol/L 1.12-1.27 L code = 698) PH, BLOOD (BEAKER) (test code = 7.52 1810) Potassium-Stat [id number] 13:43:00 Test Item Value Reference Range Interpretation Comments Potassium (test code = 2823-3) 3.6 meq/L 3.6-5.5 Lab Interpretation (test code = Normal 26843-8) [facility]OT[facility]UM-STAT [id number] 13:43:00 Test Item Value Reference Range Interpretation Comments POTASSIUM (BEAKER) (test code = 3.6 meq/L 3.6-5.5 379) POC-Glucose [id number] 12:11:00 Test Item Value Reference Range Interpretation Comments POC-Glucose Meter (test 116 mg/dL 70-110 H : TE STED AT [facility] code = 1538) [address] [facility], [address] 30: Software Controls Engineer/Techni sophie ID = [id number] for DEBORAH SANDRA Lab Interpretation (test Abnormal code = 68166-6) [facility]POCT-GLUCOSE [id number] 12:11:00 Test Item Value Reference Range Interpretation Comments POC-GLUCOSE METER 116 mg/dL 70-110 H : TESTED A T [facility] 6720 (BEAKER) (test code = CRISTA Estevez [facility], 1538) [address]: Software Controls Engineer/Techni sophie ID = [id number] for BE LLDEBORAH RAD, CHEST, 1 VIEW, NON [id number] 04:58:00Reason for exam:->RLL Carcinoma, frequent pleural effusion.Should this be performed at the bedside ?->YesFINAL REPORT RAD, CHEST, 1 VIEW, NON DEPT INDICATION: RLL Carcinoma, frequentpleural effusion. COMPARISON: Exam from five hours prior FINDINGS: Portable frontal view of the chest. IMPRESSION: Support Lines: Stable right PICC Lungs and pleura: No significant change in right ba silar opacification and small right pleural effusion. No change in left upper parenchymal opacities.No new consolidation. No pneumothorax.Heart and mediastinum: Stable contours. Additional findings: None. Signed: Mayela Caraballo MDReport Verified Date/Time: 11/15/2019 04:58:43 [id number] 04:00:00 Test Item Value Reference Range Interpretation Comments PHOSPHORUS (BEAKER) (test code = 3.1 mg/dL 2.3-4.7 604) Software Controls Engineer ID - PIAYA [id number] 04:00:00 Test Item Value Reference Range Interpretation Comments MAGNESIUM (BEAKER) (test code = 2.0 mg/dL 1.6-2.6 627) Software Controls Engineer ID - PISHER LBASIC METABOLIC [id number] 04:00:00 Test Item Value Reference Range Interpretation Comments SODIUM (BEAKER) 136 meq/L 136-145 (test code = 381) POTASSIUM (BEAKER) 3.7 meq/L 3.5-5.1 (test code = 379) CHLORIDE (BEAKER) 100 meq/L 98-107 (test code = 382) CO2 (BEAKER) (test 29 meq/L 22-29 code = 355) BLOOD UREA NITROGEN 18 mg/dL 7-21 (BEAKER) (test code = 354) CREATININE (BEAKER) 1.16 mg/dL 0.57-1.25 (test code = 358) GLUCOSE RANDOM 130 mg/dL 70-105 H (BEAKER) (test code = 652) CALCIUM (BEAKER) 8.1 mg/dL 8.4-10.2 L (test code = 697) EGFR (BEAKER) (test 60 mL/min/1.73 ESTIMA MANDO GFR IS code = 1092) sq m NOT ACCURATE CREATININE CLEARANCE IN PREDICTING GLOMERULAR FILTRATION RATE . ESTIMATED GFR I S NOT APPLICABLE FOR DIALYSIS PATIEN TS. Software Controls Engineer ID - PISHER [id number] 03:53:00 Test Item Value Reference Range Interpretation Comments PTT (test code = 42862-2) 79.3 22.5- 36.0 seconds H Lab Interpretation (test code = Abnormal 79118-9) [facility] Test Item Value Reference Range Interpretation Comments PARTIAL THROMBOPLASTIN TIME 79.3 seconds 22.5-36.0 H (BEAKER) (test code = 760) CBC W/PLT COUNT & AUTO [id number] 03:39:00 Test Item Value Reference Range Interpretation Comments WHITE BLOOD CELL COUNT (BEAKER) 18.2 K/ L 3.5-10.5 H (test code = 775) RED BLOOD CELL COUNT (BEAKER) 3.75 M/ L 4.63-6.08 L (test code = 761) HEMOGLOBIN (BEAKER) (test code = 10.7 GM/DL 13.7-17.5 L 410) HEMATOCRIT (BEAKER) (test code = 34.3 % 40.1-51.0 L 411) MEAN CORPUSCULAR VOLUME (BEAKER) 91.5 fL 79.0-92.2 (test code = 753) MEAN CORPUSCULAR HEMOGLOBIN 28.5 pg 25.7-32.2 (BEAKER) (test code = 751) MEAN CORPUSCULAR HEMOGLOBIN CONC 31.2 GM/DL 32.3-36.5 L (BEAKER) (test code = 752) RED CELL DISTRIBUTION WIDTH 13.5 % 11.6-14.4 (BEAKER) (test code = 412) PLATELET COUNT (BEAKER) (test 214 K/CU MM 150-450 code = 756) MEAN PLATELET VOLUME (BEAKER) 9.5 fL 9.4-12.4 (test code = 754) NUCLEATED RED BLOOD CELLS 0 /100 WBC 0-0 (BEAKER) (test code = 413) NEUTROPHILS RELATIVE PERCENT 85 % (BEAKER) (test code = 429) LYMPHOCYTES RELATIVE PERCENT 5 % (BEAKER) (test code = 430) MONOCYTES RELATIVE PERCENT 7 % (BEAKER) (test code = 431) EOSINOPHILS RELATIVE PERCENT 2 % (BEAKER) (test code = 432) BASOPHILS RELATIVE PERCENT 1 % (BEAKER) (test code = 437) NEUTROPHILS ABSOLUTE COUNT 15.46 K/ L 1.78-5.38 H (BEAKER) (test code = 670) LYMPHOCYTES ABSOLUTE COUNT 0.86 K/ L 1.32-3.57 L (BEAKER) (test code = 414) MONOCYTES ABSOLUTE COUNT (BEAKER) 1.31 K/ L 0.30-0.82 H (test code = 415) EOSINOPHILS ABSOLUTE COUNT 0.33 K/ L 0.04-0.54 (BEAKER) (test code = 416) BASOPHILS ABSOLUTE COUNT (BEAKER) 0.10 K/ L 0.01-0.08 H (test code = 417) IMMATURE GRANULOCYTES-RELATIVE 1 % 0-1 PERCENT (BEAKER) (test code = 2801) RAD, CHEST, 1 VIEW, NON [id number] 23:40:00Reason for exam:->coughing up bloodShould this be performed at the bedside?->YesFINAL REPORT RAD, CHEST, 1 VIEW, NON DEPT INDICATION: coughing up blood COMPARISON: Prior day's exam FINDINGS: Portable frontal view of the chest. IMPRESSION: Support Lines: Stable. Lungs and pleura: Unchanged patchy bilateral airspace opacities, left greater than right with moderate right pleural effusion.. No pneumothorax.Heart and mediastinum: Stable contours. Additional findings: None. Signed: Beverly Ugarte Verified Date/Time: 11/14/2019 23:40:14 CBC W/PLT COUNT & AUTO [id number] 22:59:00 Test Item Value Reference Range Interpretation Comments WHITE BLOOD CELL COUNT (BEAKER) 18.4 K/ L 3.5-10.5 H (test code = 775) RED BLOOD CELL COUNT (BEAKER) 3.88 M/ L 4.63-6.08 L (test code = 761) HEMOGLOBIN (BEAKER) (test code = 11.4 GM/DL 13.7-17.5 L 410) HEMATOCRIT (BEAKER) (test code = 35.1 % 40.1-51.0 L 411) MEAN CORPUSCULAR VOLUME (BEAKER) 90.5 fL 79.0-92.2 (test code = 753) MEAN CORPUSCULAR HEMOGLOBIN 29.4 pg 25.7-32.2 (BEAKER) (test code = 751) MEAN CORPUSCULAR HEMOGLOBIN CONC 32.5 GM/DL 32.3-36.5 (BEAKER) (test code = 752) RED CELL DISTRIBUTION WIDTH 13.7 % 11.6-14.4 (BEAKER) (test code = 412) PLATELET COUNT (BEAKER) (test 222 K/CU MM 150-450 code = 756) MEAN PLATELET VOLUME (BEAKER) 10.0 fL 9.4-12.4 (test code = 754) NUCLEATED RED BLOOD CELLS 0 /100 WBC 0-0 (BEAKER) (test code = 413) NEUTROPHILS RELATIVE PERCENT 81 % (BEAKER) (test code = 429) LYMPHOCYTES RELATIVE PERCENT 8 % (BEAKER) (test code = 430) MONOCYTES RELATIVE PERCENT 8 % (BEAKER) (test code = 431) EOSINOPHILS RELATIVE PERCENT 3 % (BEAKER) (test code = 432) BASOPHILS RELATIVE PERCENT 0 % (BEAKER) (test code = 437) NEUTROPHILS ABSOLUTE COUNT 14.85 K/ L 1.78-5.38 H (BEAKER) (test code = 670) LYMPHOCYTES ABSOLUTE COUNT 1.43 K/ L 1.32-3.57 (BEAKER) (test code = 414) MONOCYTES ABSOLUTE COUNT (BEAKER) 1.42 K/ L 0.30-0.82 H (test code = 415) EOSINOPHILS ABSOLUTE COUNT 0.47 K/ L 0.04-0.54 (BEAKER) (test code = 416) BASOPHILS ABSOLUTE COUNT (BEAKER) 0.08 K/ L 0.01-0.08 (test code = 417) IMMATURE GRANULOCYTES-RELATIVE 1 % 0-1 PERCENT (BEAKER) (test code = 2801) BASIC METABOLIC [id number] 06:46:00 Test Item Value Reference Range Interpretation Comments SODIUM (BEAKER) 134 meq/L 136-145 L (test code = 381) POTASSIUM (BEAKER) 3.5 meq/L 3.5-5.1 (test code = 379) CHLORIDE (BEAKER) 100 meq/L 98-107 (test code = 382) CO2 (BEAKER) (test 27 meq/L 22-29 code = 355) BLOOD UREA NITROGEN 20 mg/dL 7-21 (BEAKER) (test code = 354) CREATININE (BEAKER) 1.18 mg/dL 0.57-1.25 (test code = 358) GLUCOSE RANDOM 129 mg/dL 70-105 H (BEAKER) (test code = 652) CALCIUM (BEAKER) 7.8 mg/dL 8.4-10.2 L (test code = 697) EGFR (BEAKER) (test 58 mL/min/1.73 ESTIMA MANDO GFR IS code = 1092) sq m NOT ACCURATE CREATININE CLEARANCE IN PREDICTING GLOMERULAR FILTRATION RATE . ESTIMATED GFR I S NOT APPLICABLE FOR DIALYSIS PATIEN TS. Software Controls Engineer ID - RUFUS [id number] 06:35:00 Test Item Value Reference Range Interpretation Comments PHOSPHORUS (BEAKER) (test code = 3.1 mg/dL 2.3-4.7 604) Software Controls Engineer ID - RUFUS [id number] 06:35:00 Test Item Value Reference Range Interpretation Comments MAGNESIUM (BEAKER) (test code = 2.0 mg/dL 1.6-2.6 627) Software Controls Engineer ID - RUFUS MCBC W/PLT COUNT & AUTO [id number] 06:12:00 Test Item Value Reference Range Interpretation Comments WHITE BLOOD CELL COUNT (BEAKER) 16.6 K/ L 3.5-10.5 H (test code = 775) RED BLOOD CELL COUNT (BEAKER) 3.78 M/ L 4.63-6.08 L (test code = 761) HEMOGLOBIN (BEAKER) (test code = 10.7 GM/DL 13.7-17.5 L 410) HEMATOCRIT (BEAKER) (test code = 34.6 % 40.1-51.0 L 411) MEAN CORPUSCULAR VOLUME (BEAKER) 91.5 fL 79.0-92.2 (test code = 753) MEAN CORPUSCULAR HEMOGLOBIN 28.3 pg 25.7-32.2 (BEAKER) (test code = 751) MEAN CORPUSCULAR HEMOGLOBIN CONC 30.9 GM/DL 32.3-36.5 L (BEAKER) (test code = 752) RED CELL DISTRIBUTION WIDTH 13.6 % 11.6-14.4 (BEAKER) (test code = 412) PLATELET COUNT (BEAKER) (test 212 K/CU MM 150-450 code = 756) MEAN PLATELET VOLUME (BEAKER) 9.9 fL 9.4-12.4 (test code = 754) NUCLEATED RED BLOOD CELLS 0 /100 WBC 0-0 (BEAKER) (test code = 413) NEUTROPHILS RELATIVE PERCENT 83 % (BEAKER) (test code = 429) LYMPHOCYTES RELATIVE PERCENT 6 % (BEAKER) (test code = 430) MONOCYTES RELATIVE PERCENT 8 % (BEAKER) (test code = 431) EOSINOPHILS RELATIVE PERCENT 2 % (BEAKER) (test code = 432) BASOPHILS RELATIVE PERCENT 1 % (BEAKER) (test code = 437) NEUTROPHILS ABSOLUTE COUNT 13.89 K/ L 1.78-5.38 H (BEAKER) (test code = 670) LYMPHOCYTES ABSOLUTE COUNT 0.98 K/ L 1.32-3.57 L (BEAKER) (test code = 414) MONOCYTES ABSOLUTE COUNT (BEAKER) 1.24 K/ L 0.30-0.82 H (test code = 415) EOSINOPHILS ABSOLUTE COUNT 0.32 K/ L 0.04-0.54 (BEAKER) (test code = 416) BASOPHILS ABSOLUTE COUNT (BEAKER) 0.11 K/ L 0.01-0.08 H (test code = 417) IMMATURE GRANULOCYTES-RELATIVE 1 % 0-1 PERCENT (BEAKER) (test code = 2801) [id number] 06:00:00 Test Item Value Reference Range Interpretation Comments PARTIAL THROMBOPLASTIN TIME 79.4 seconds 22.5-36.0 H (BEAKER) (test code = 760) RAD, CHEST, 1 VIEW, NON [id number] 04:47:00Reason for exam:->RLL Carcinoma, frequent pleural effusion.Should this be performed at the bedside ?->YesFINAL REPORT RAD, CHEST, 1 VIEW, NON DEPT INDICATION: RLL Carcinoma, frequentpleural effusion. COMPARISON: 11/11/2019 FINDINGS: Portable frontal view of the chest. IMPRESSION: Support Lines: Stable right PICC Lungs and pleura: Bilateral patchy airspace opacities and small pleural effusions are not significantly changed. No pneumothorax.Heart and mediastinum: Stable contours. Additional findings: None. Signed: Mayela Caraballo MDReport Verified Date/Time: 11/14/2019 04:47:35 [id number] 01:22:00 Test Item Value Reference Range Interpretation Comments PARTIAL THROMBOPLASTIN TIME 72.3 seconds 22.5-36.0 H (BEAKER) (test code = 760) [id number] 17:51:00 Test Item Value Reference Range Interpretation Comments PARTIAL THROMBOPLASTIN TIME 64.3 seconds 22.5-36.0 H (BEAKER) (test code = 760) Type and screen, [id number] 13:33:00 Test Item Value Reference Range Interpretation Comments ABO/RH AUTOMATED (BEAKER) (test A POSITIVE code = 2260) Ab Scrn (test code = 890-4) NEGATIVE [facility] + Reflex to Culture 2019-11-13 12:50:00 Test Item Value Reference Range Interpretation Comments Color, UA (test code = Light Yellow 5778-6) Clarity, UA (test code Clear = 5767-9) Specific Graham, UA 1.014 1.001-1.035 (test code = 5811-5) pH, UA (test code = 6.5 5.0-8.0 5803-2) Protein, UA (test code Negative Negative = 54845-0) Glucose, UA (test code Negative Negative = 365) Ketones, UA (test code Negative Negative = 2514-8) Bilirubin, UA (test Negative Negative code = 39817-1) Blood, UA (test code = Negative Negative 17161-4) Nitrite, UA (test code Negative Negative = 5802-4) Leukocytes, UA (test Negative Negative code = 5799-2) Urobilinogen, UA (test 0.2 mg/dL 0.2-1 code = 10822-7) RBC, UA (test code = 1 /HPF 20150-2) WBC, UA (test code = 1 /HPF 5821-4) Squam Epithel, UA (test <1 /HPF code = 88929-6) Hyaline Casts, UA (test 1 /LPF code = 52779-3) Yeast (test code = Rare 87352-2) Specimen Source (test code = 2795) FAIZA (test code = FAIZA) Software Controls Engineer ID - [auto]Software Controls Engineer ID - tech [facility]/ REFLEX URINE [id number] 12:50:00 Test Item Value Reference Range Interpretation Comments COLOR (BEAKER) (test code = 470) Light Yellow CLARITY (BEAKER) (test code = Clear 469) SPECIFIC GRAVITY UA (BEAKER) 1.014 1.001-1.035 (test code = 468) PH UA (BEAKER) (test code = 467) 6.5 5.0-8.0 PROTEIN UA (BEAKER) (test code = Negative Negative 464) GLUCOSE UA (BEAKER) (test code = Negative Negative 365) KETONES UA (BEAKER) (test code = Negative Negative 371) BILIRUBIN UA (BEAKER) (test code Negative Negative = 462) BLOOD UA (BEAKER) (test code = Negative Negative 461) NITRITE UA (BEAKER) (test code = Negative Negative 465) LEUKOCYTE ESTERASE UA (BEAKER) Negative Negative (test code = 466) UROBILINOGEN UA (BEAKER) (test 0.2 mg/dL 0.2-1.0 code = 463) RBC UA (BEAKER) (test code = 1 /HPF 519) WBC UA (BEAKER) (test code = 1 /HPF 520) SQUAMOUS EPITHELIAL (BEAKER) < /HPF (test code = 516) HYALINE CASTS (BEAKER) (test 1 /LPF code = 514) YEAST (BEAKER) (test code = Rare 1585) SOURCE(BEAKER) (test code = 2795) Software Controls Engineer ID - [auto]Software Controls Engineer ID - [id number] 12:32:00 Test Item Value Reference Range Interpretation Comments PARTIAL THROMBOPLASTIN TIME 73.5 seconds 22.5-36.0 H (BEAKER) (test code = 760) CALCIUM, [id number] 06:07:00 Test Item Value Reference Range Interpretation Comments CALCIUM IONIZED (BEAKER) (test 1.10 mmol/L 1.12-1.27 L code = 698) PH, BLOOD (BEAKER) (test code = 7.44 1810) [id number] 05:55:00 Test Item Value Reference Range Interpretation Comments PARTIAL THROMBOPLASTIN TIME 60.7 seconds 22.5-36.0 H (BEAKER) (test code = 760) Hepatic function [id number] 05:33:00 Test Item Value Reference Range Interpretation Comments Protein, Total (test code 5.4 6.0- 8.3 gm/dL L = 2885-2) Albumin (test code = 2.5 g/dL 3.5-5 L 17382-8) Total Bilirubin (test code 0.9 mg/dL 0.2-1.2 = 1975-2) Bilirubin, Direct (test 0.5 mg/dL 0.1-0.5 code = 1968-7) Alkaline Phosphatase (test 54 U/L 40-150 code = 6768-6) AST (test code = 1920-8) 15 U/L 5-34 ALT (test code = 1742-6) 17 U/L 6-55 FAIZA (test code = FAIZA) Software Controls Engineer ID - RUFUS Bri Lab Interpretation (test Abnormal code = 86455-4) [id number] 05:33:00 Test Item Value Reference Range Interpretation Comments PHOSPHORUS (BEAKER) (test code = 2.9 mg/dL 2.3-4.7 604) Software Controls Engineer ID - RUFUS [id number] 05:33:00 Test Item Value Reference Range Interpretation Comments MAGNESIUM (BEAKER) (test code = 2.1 mg/dL 1.6-2.6 627) Software Controls Engineer ID - RUFUS MBASIC METABOLIC [id number] 05:33:00 Test Item Value Reference Range Interpretation Comments SODIUM (BEAKER) 135 meq/L 136-145 L (test code = 381) POTASSIUM (BEAKER) 3.8 meq/L 3.5-5.1 (test code = 379) CHLORIDE (BEAKER) 100 meq/L 98-107 (test code = 382) CO2 (BEAKER) (test 27 meq/L 22-29 code = 355) BLOOD UREA NITROGEN 20 mg/dL 7-21 (BEAKER) (test code = 354) CREATININE (BEAKER) 1.19 mg/dL 0.57-1.25 (test code = 358) GLUCOSE RANDOM 141 mg/dL 70-105 H (BEAKER) (test code = 652) CALCIUM (BEAKER) 8.0 mg/dL 8.4-10.2 L (test code = 697) EGFR (BEAKER) (test 58 mL/min/1.73 ESTIMA MANDO GFR IS code = 1092) sq m NOT ACCURATE CREATININE CLEARANCE IN PREDICTING GLOMERULAR FILTRATION RATE . ESTIMATED GFR I S NOT APPLICABLE FOR DIALYSIS PATIEN TS. Software Controls Engineer ID - RUFUS MHEPATIC FUNCTION [id number] 05:33:00 Test Item Value Reference Range Interpretation Comments TOTAL PROTEIN (BEAKER) (test code = 5.4 gm/dL 6.0-8.3 L 770) ALBUMIN (BEAKER) (test code = 1145) 2.5 g/dL 3.5-5.0 L BILIRUBIN TOTAL (BEAKER) (test code 0.9 mg/dL 0.2-1.2 = 377) BILIRUBIN DIRECT (BEAKER) (test 0.5 mg/dL 0.1-0.5 code = 706) ALKALINE PHOSPHATASE (BEAKER) (test 54 U/L 40-150 code = 346) AST (SGOT) (BEAKER) (test code = 15 U/L 5-34 353) ALT (SGPT) (BEAKER) (test code = 17 U/L 6-55 347) Software Controls Engineer ID - RUFUS MCBC W/PLT COUNT & AUTO [id number] 05:32:00 Test Item Value Reference Range Interpretation Comments WHITE BLOOD CELL COUNT (BEAKER) 17.6 K/ L 3.5-10.5 H (test code = 775) RED BLOOD CELL COUNT (BEAKER) 3.82 M/ L 4.63-6.08 L (test code = 761) HEMOGLOBIN (BEAKER) (test code = 11.1 GM/DL 13.7-17.5 L 410) HEMATOCRIT (BEAKER) (test code = 35.1 % 40.1-51.0 L 411) MEAN CORPUSCULAR VOLUME (BEAKER) 91.9 fL 79.0-92.2 (test code = 753) MEAN CORPUSCULAR HEMOGLOBIN 29.1 pg 25.7-32.2 (BEAKER) (test code = 751) MEAN CORPUSCULAR HEMOGLOBIN CONC 31.6 GM/DL 32.3-36.5 L (BEAKER) (test code = 752) RED CELL DISTRIBUTION WIDTH 13.6 % 11.6-14.4 (BEAKER) (test code = 412) PLATELET COUNT (BEAKER) (test 204 K/CU MM 150-450 code = 756) MEAN PLATELET VOLUME (BEAKER) 9.9 fL 9.4-12.4 (test code = 754) NUCLEATED RED BLOOD CELLS 0 /100 WBC 0-0 (BEAKER) (test code = 413) NEUTROPHILS RELATIVE PERCENT 82 % (BEAKER) (test code = 429) LYMPHOCYTES RELATIVE PERCENT 7 % (BEAKER) (test code = 430) MONOCYTES RELATIVE PERCENT 9 % (BEAKER) (test code = 431) EOSINOPHILS RELATIVE PERCENT 2 % (BEAKER) (test code = 432) BASOPHILS RELATIVE PERCENT 1 % (BEAKER) (test code = 437) NEUTROPHILS ABSOLUTE COUNT 14.40 K/ L 1.78-5.38 H (BEAKER) (test code = 670) LYMPHOCYTES ABSOLUTE COUNT 1.24 K/ L 1.32-3.57 L (BEAKER) (test code = 414) MONOCYTES ABSOLUTE COUNT (BEAKER) 1.50 K/ L 0.30-0.82 H (test code = 415) EOSINOPHILS ABSOLUTE COUNT 0.27 K/ L 0.04-0.54 (BEAKER) (test code = 416) BASOPHILS ABSOLUTE COUNT (BEAKER) 0.09 K/ L 0.01-0.08 H (test code = 417) IMMATURE GRANULOCYTES-RELATIVE 1 % 0-1 PERCENT (BEAKER) (test code = 2801) [id number] 20:40:00 Test Item Value Reference Range Interpretation Comments PARTIAL THROMBOPLASTIN TIME 51.3 seconds 22.5-36.0 H (BEAKER) (test code = 760) BASIC METABOLIC [id number] 17:28:00 Test Item Value Reference Range Interpretation Comments SODIUM (BEAKER) 135 meq/L 136-145 L (test code = 381) POTASSIUM (BEAKER) 4.1 meq/L 3.5-5.1 (test code = 379) CHLORIDE (BEAKER) 99 meq/L 98-107 (test code = 382) CO2 (BEAKER) (test 28 meq/L 22-29 code = 355) BLOOD UREA NITROGEN 22 mg/dL 7-21 H (BEAKER) (test code = 354) CREATININE (BEAKER) 1.26 mg/dL 0.57-1.25 H (test code = 358) GLUCOSE RANDOM 129 mg/dL 70-105 H (BEAKER) (test code = 652) CALCIUM (BEAKER) 8.3 mg/dL 8.4-10.2 L (test code = 697) EGFR (BEAKER) (test 54 mL/min/1.73 ESTIMA MANDO GFR IS code = 1092) sq m NOT ACCURATE CREATININE CLEARANCE IN PREDICTING GLOMERULAR FILTRATION RATE . ESTIMATED GFR I S NOT APPLICABLE FOR DIALYSIS PATIEN TS. Software Controls Engineer ID - [id number] 15:58:00Medical Cytology Report Case: [id number] Authorizing Provider: Yoly Qiu NP Collected: 11/11/2019 05:22 PM Ordering Location: [place] [address] ccu Received: 11/12/2019 09:03 AM Pathologist: Berenice Eng MD Specimen: Pleural, Right RIGHT PLEURAL FLUID (CYTOSPINS): - REACTIVE MESOTHELIAL CELLS IN A BACKGROUND OF MIXED INFLAMMATION - MALIGNANT CELLS NOT IDENTIFIED Signing Pathologist Direct Phone Line: [phone] signedby Berenice Eng MD on 11/12/2019 at 3:58 [id number] pleural effusion, recently diagnosed with lung cancer (see surgical case [id number])RIGHT PLEURAL FLUID 8 mls clear yellow-orange fluid; 4 cytospinsCollected: [id number]: [id number].[facility], Department of Pathology, [address] [place] [id number], [facility], [facility], [address] [place] [id number], [facility], [facility] of [facility], [address] [place] [address], [id number] 13:20:00 Test Item Value Reference Range Interpretation Comments PARTIAL THROMBOPLASTIN TIME 43.7 seconds 22.5-36.0 H (BEAKER) (test code = 760) HEPATIC FUNCTION [id number] 11:36:00 Test Item Value Reference Range Interpretation Comments TOTAL PROTEIN (BEAKER) (test code = 5.6 gm/dL 6.0-8.3 L 770) ALBUMIN (BEAKER) (test code = 1145) 2.7 g/dL 3.5-5.0 L BILIRUBIN TOTAL (BEAKER) (test code 1.0 mg/dL 0.2-1.2 = 377) BILIRUBIN DIRECT (BEAKER) (test 0.6 mg/dL 0.1-0.5 H code = 706) ALKALINE PHOSPHATASE (BEAKER) (test 58 U/L 40-150 code = 346) AST (SGOT) (BEAKER) (test code = 21 U/L 5-34 353) ALT (SGPT) (BEAKER) (test code = 18 U/L 6-55 347) Software Controls Engineer ID - DONNA [id number] 06:10:00 Test Item Value Reference Range Interpretation Comments PHOSPHORUS (BEAKER) (test code = 3.4 mg/dL 2.3-4.7 604) Software Controls Engineer ID - RUFUS [id number] 06:10:00 Test Item Value Reference Range Interpretation Comments MAGNESIUM (BEAKER) (test code = 2.1 mg/dL 1.6-2.6 627) Software Controls Engineer ID - RUFUS MBASIC METABOLIC [id number] 06:10:00 Test Item Value Reference Range Interpretation Comments SODIUM (BEAKER) 134 meq/L 136-145 L (test code = 381) POTASSIUM (BEAKER) 3.3 meq/L 3.5-5.1 L (test code = 379) CHLORIDE (BEAKER) 98 meq/L 98-107 (test code = 382) CO2 (BEAKER) (test 28 meq/L 22-29 code = 355) BLOOD UREA NITROGEN 20 mg/dL 7-21 (BEAKER) (test code = 354) CREATININE (BEAKER) 1.30 mg/dL 0.57-1.25 H (test code = 358) GLUCOSE RANDOM 142 mg/dL 70-105 H (BEAKER) (test code = 652) CALCIUM (BEAKER) 8.0 mg/dL 8.4-10.2 L (test code = 697) EGFR (BEAKER) (test 52 mL/min/1.73 ESTIMA MANDO GFR IS code = 1092) sq m NOT ACCURATE CREATININE CLEARANCE IN PREDICTING GLOMERULAR FILTRATION RATE . ESTIMATED GFR I S NOT APPLICABLE FOR DIALYSIS PATIEN TS. Software Controls Engineer ID - RUFUS MCBC W/PLT COUNT & AUTO [id number] 06:06:00 Test Item Value Reference Range Interpretation Comments WHITE BLOOD CELL COUNT (BEAKER) 14.0 K/ L 3.5-10.5 H (test code = 775) RED BLOOD CELL COUNT (BEAKER) 3.95 M/ L 4.63-6.08 L (test code = 761) HEMOGLOBIN (BEAKER) (test code = 11.3 GM/DL 13.7-17.5 L 410) HEMATOCRIT (BEAKER) (test code = 35.5 % 40.1-51.0 L 411) MEAN CORPUSCULAR VOLUME (BEAKER) 89.9 fL 79.0-92.2 (test code = 753) MEAN CORPUSCULAR HEMOGLOBIN 28.6 pg 25.7-32.2 (BEAKER) (test code = 751) MEAN CORPUSCULAR HEMOGLOBIN CONC 31.8 GM/DL 32.3-36.5 L (BEAKER) (test code = 752) RED CELL DISTRIBUTION WIDTH 13.5 % 11.6-14.4 (BEAKER) (test code = 412) PLATELET COUNT (BEAKER) (test 206 K/CU MM 150-450 code = 756) MEAN PLATELET VOLUME (BEAKER) 9.8 fL 9.4-12.4 (test code = 754) NUCLEATED RED BLOOD CELLS 0 /100 WBC 0-0 (BEAKER) (test code = 413) NEUTROPHILS RELATIVE PERCENT 80 % (BEAKER) (test code = 429) LYMPHOCYTES RELATIVE PERCENT 8 % (BEAKER) (test code = 430) MONOCYTES RELATIVE PERCENT 9 % (BEAKER) (test code = 431) EOSINOPHILS RELATIVE PERCENT 1 % (BEAKER) (test code = 432) BASOPHILS RELATIVE PERCENT 1 % (BEAKER) (test code = 437) NEUTROPHILS ABSOLUTE COUNT 11.26 K/ L 1.78-5.38 H (BEAKER) (test code = 670) LYMPHOCYTES ABSOLUTE COUNT 1.15 K/ L 1.32-3.57 L (BEAKER) (test code = 414) MONOCYTES ABSOLUTE COUNT (BEAKER) 1.27 K/ L 0.30-0.82 H (test code = 415) EOSINOPHILS ABSOLUTE COUNT 0.15 K/ L 0.04-0.54 (BEAKER) (test code = 416) BASOPHILS ABSOLUTE COUNT (BEAKER) 0.08 K/ L 0.01-0.08 (test code = 417) IMMATURE GRANULOCYTES-RELATIVE 1 % 0-1 PERCENT (BEAKER) (test code = 2801) [id number] 05:47:00 Test Item Value Reference Range Interpretation Comments PARTIAL THROMBOPLASTIN TIME 45.4 seconds 22.5-36.0 H (BEAKER) (test code = 760) [id number] 21:56:00 Test Item Value Reference Range Interpretation Comments PARTIAL THROMBOPLASTIN TIME 36.0 seconds 22.5-36.0 (BEAKER) (test code = 760) Body fluid cell count with [id number] 14:32:00 Test Item Value Reference Range Interpretation Comments Appearance (test code = 9335-1) Cloudy Clear A Color (test code = 6824-7) Yellow Colorless, Straw A RBCs (test code = 64054-5) 6000 <=1 /cu mm H Adjusted WBC Count (test code = 1392 <=5 /cu mm H 11068-6) Lining Cells (test code = 0 <=1 /cu mm 42237-9) % Segs (test code = 55757-1) 37 % % Lymphs (test code = 84940-7) 44 % % Monos (test code = 90896-8) 19 % % Eos (test code = 30605-7) 0 % % Baso (test code = 57613-5) 0 % Container Body Fluid (test code Sterile Vial = 2873) Lab Interpretation (test code = Abnormal 92850-0) [facility] WITH [id number] 14:32:00 Test Item Value Reference Range Interpretation Comments APPEARANCE FLUID (BEAKER) (test Cloudy Clear A code = 510) COLOR FLUID (BEAKER) (test code Yellow Colorless, Straw A = 511) RBC FLUID (BEAKER) (test code = 6000 /cu mm <=1 H 513) ADJUSTED WBC FLUID (BEAKER) 1392 /cu mm <=5 H (test code = 1691) LINING CELLS (BEAKER) (test 0 /cu mm <=1 code = 1590) NEUTROPHILS FLUID (BEAKER) 37 % (test code = 1656) LYMPHS FLUID (BEAKER) (test 44 % code = 488) MONO/MACROPHAGE FLUID (BEAKER) 19 % (test code = 489) EOSINOPHILS FLUID (BEAKER) 0 % (test code = 491) BASO FLUID (BEAKER) (test code 0 % = 492) CONTAINER BODY FLUID (BEAKER) Sterile Vial (test code = 2873) [id number] 13:31:00 Test Item Value Reference Range Interpretation Comments PARTIAL THROMBOPLASTIN TIME 35.1 seconds 22.5-36.0 (BEAKER) (test code = 760) 6 hours after starting heparin infusion and as indicated per sliding scaleU/S, [id number] 13:03:00Laterality?->RightReason for exam:- >pleural effusionShould this be performed at the bedside?->YesLabs to be Ordered:->Body Fluid Culture (w/Gram Stain, C\\T\\S)cell countLabs to be Ordered:->Glucose+LDH+ProteinLabs to be Ordered:->CytologyLabs to be Ordered:->Other (please add comment)FINAL REPORT PROCEDURE: Ultrasound-guided thoracentesis INDICATION: 89-year-old man with right pleural effusion. DESCRIPTION: After obtaining informed written consent, ultrasoundscan showed pleural effusion on the right. The overlying skin was prepped and draped in the usual, sterile fashion and local 2% lidocaine anesthesia was administered. A 4 Sudanese catheter was advanced into the pleural cavity and 1200 cc of serosanguineous fluid was removed. The catheter was removed without immediate complication. Samples were left at the patient's bedside. IMPRESSION:Uncomplicated ultrasound-guided right thoracentesis with 1200 cc fluid removed. Signed: Td Tran MDReport Verified Date/Time: 11/11/2019 13:03:08 Reading Location: [address] Body Reading Room RAD, CHEST, 1 VIEW, NON [id number] 12:24:00Reason for exam:->s/p ThoracentesisShould this be performed at the bedside?->YesFINAL REPORT TECHNIQUE: Frontal view of the chest. INDICATION: 89-year-old man after right thoracentesis. COMPARISON: Chest radiograph from earlier same date. FINDINGS: LINES/TUBES: Unchanged. LUNGS: No significant change in bilateral airspace opacities. PLEURA: Decreased smallright pleural effusion after thoracentesis. No pneumothorax. HEART AND MEDIASTINUM: Cardiomediastinal silhouette is unchanged. Atherosclerotic calcifications in the thoracic aorta. BONES AND SOFT TISSUES: Unremarkable. IMPRESSION:Decreased small right pleural effusion after thoracentesis. No pneumothorax. Otherwise, no significant change since chest radiograph from earlier same date. Signed: Td Tran MDReport Verified Date/Time: 11/11/2019 12:24:42 Reading Location: [facility] C013Y CT Body Reading Room RAD, CHEST, 1 VIEW, NON [id number] 09:18:00Reason for exam:->sobShould this be performed at the bedside?->Yes FINAL REPORT Chest, one view HISTORY: Shortness of breath Comparison: 11/09/2019 Findings: Lungs: Patchy bilateral airspace disease, similar to previous examination. Heart: Normal in size. Pleura: Moderate right pleural effusion, similar in size. No pneumothorax is apparent. Bones: Unremarkable. Lines/tubes: Unchanged satisfactory position of right PICC line. Signed: Travis Bermudez MDReport Verified Date/Time: 11/11/2019 09:18:25 Reading Location: [address] Consult Reading Room CBC W/PLT COUNT & AUTO [id number] 06:43:00 Test Item Value Reference Range Interpretation Comments WHITE BLOOD CELL COUNT (BEAKER) 14.8 K/ L 3.5-10.5 H (test code = 775) RED BLOOD CELL COUNT (BEAKER) 3.83 M/ L 4.63-6.08 L (test code = 761) HEMOGLOBIN (BEAKER) (test code = 11.0 GM/DL 13.7-17.5 L 410) HEMATOCRIT (BEAKER) (test code = 34.7 % 40.1-51.0 L 411) MEAN CORPUSCULAR VOLUME (BEAKER) 90.6 fL 79.0-92.2 (test code = 753) MEAN CORPUSCULAR HEMOGLOBIN 28.7 pg 25.7-32.2 (BEAKER) (test code = 751) MEAN CORPUSCULAR HEMOGLOBIN CONC 31.7 GM/DL 32.3-36.5 L (BEAKER) (test code = 752) RED CELL DISTRIBUTION WIDTH 13.7 % 11.6-14.4 (BEAKER) (test code = 412) PLATELET COUNT (BEAKER) (test 192 K/CU MM 150-450 code = 756) MEAN PLATELET VOLUME (BEAKER) 10.0 fL 9.4-12.4 (test code = 754) NUCLEATED RED BLOOD CELLS 0 /100 WBC 0-0 (BEAKER) (test code = 413) NEUTROPHILS RELATIVE PERCENT 82 % (BEAKER) (test code = 429) LYMPHOCYTES RELATIVE PERCENT 6 % (BEAKER) (test code = 430) MONOCYTES RELATIVE PERCENT 10 % (BEAKER) (test code = 431) EOSINOPHILS RELATIVE PERCENT 1 % (BEAKER) (test code = 432) BASOPHILS RELATIVE PERCENT 1 % (BEAKER) (test code = 437) NEUTROPHILS ABSOLUTE COUNT 12.10 K/ L 1.78-5.38 H (BEAKER) (test code = 670) LYMPHOCYTES ABSOLUTE COUNT 0.95 K/ L 1.32-3.57 L (BEAKER) (test code = 414) MONOCYTES ABSOLUTE COUNT (BEAKER) 1.41 K/ L 0.30-0.82 H (test code = 415) EOSINOPHILS ABSOLUTE COUNT 0.18 K/ L 0.04-0.54 (BEAKER) (test code = 416) BASOPHILS ABSOLUTE COUNT (BEAKER) 0.07 K/ L 0.01-0.08 (test code = 417) IMMATURE GRANULOCYTES-RELATIVE 1 % 0-1 PERCENT (BEAKER) (test code = 2801) [id number] 06:17:00 Test Item Value Reference Range Interpretation Comments PHOSPHORUS (BEAKER) (test code = 3.2 mg/dL 2.3-4.7 604) Software Controls Engineer ID - [id number] 06:17:00 Test Item Value Reference Range Interpretation Comments MAGNESIUM (BEAKER) (test code = 2.0 mg/dL 1.6-2.6 627) Software Controls Engineer ID - DBBASIC METABOLIC [id number] 06:17:00 Test Item Value Reference Range Interpretation Comments SODIUM (BEAKER) 136 meq/L 136-145 (test code = 381) POTASSIUM (BEAKER) 3.1 meq/L 3.5-5.1 L (test code = 379) CHLORIDE (BEAKER) 99 meq/L 98-107 (test code = 382) CO2 (BEAKER) (test 28 meq/L 22-29 code = 355) BLOOD UREA NITROGEN 20 mg/dL 7-21 (BEAKER) (test code = 354) CREATININE (BEAKER) 1.12 mg/dL 0.57-1.25 (test code = 358) GLUCOSE RANDOM 132 mg/dL 70-105 H (BEAKER) (test code = 652) CALCIUM (BEAKER) 8.1 mg/dL 8.4-10.2 L (test code = 697) EGFR (BEAKER) (test 62 mL/min/1.73 ESTIMA MANDO GFR IS code = 1092) sq m NOT ACCURATE CREATININE CLEARANCE IN PREDICTING GLOMERULAR FILTRATION RATE . ESTIMATED GFR I S NOT APPLICABLE FOR DIALYSIS PATIEN TS. Software Controls Engineer ID - DBPOCT-GLUCOSE [id number] 12:03:00 Test Item Value Reference Range Interpretation Comments POC-GLUCOSE METER 108 mg/dL 70-110 : TESTED A T [facility] 6720 (BEAKER) (test code = [facility], 1538) [address]: Software Controls Engineer/Techni sophie ID = [id number] for BETI GONGORA [id number] 11:23:00 Test Item Value Reference Range Interpretation Comments Potassium (test code = 3.5 meq/L 3.5-5.1 2823-3) FAIZA (test code = FAIZA) Software Controls Engineer ID - DONNA C Lab Interpretation (test Normal code = 93483-6) [id number] 11:23:00 Test Item Value Reference Range Interpretation Comments POTASSIUM (BEAKER) (test code = 3.5 meq/L 3.5-5.1 379) Software Controls Engineer ID - DONNA [id number] 11:23:00 Test Item Value Reference Range Interpretation Comments MAGNESIUM (BEAKER) (test code = 2.3 mg/dL 1.6-2.6 627) Software Controls Engineer ID - DONNA CPOCT-GLUCOSE [id number] 07:59:00 Test Item Value Reference Range Interpretation Comments POC-GLUCOSE METER 131 mg/dL 70-110 H : TESTED A T [facility] 6720 (BEAKER) (test code [facility], = 1538) 37754: Software Controls Engineer/Techni sophie ID = [id number] for TAMICA RIZVI POCT-GLUCOSE [id number] 07:42:00 Test Item Value Reference Range Interpretation Comments POC-GLUCOSE METER 57 mg/dL 70-110 L : TESTED A T [facility] 6720 (BEAKER) (test code = [facility], 1538) 309[address]: Software Controls Engineer/Techni sophie ID = [id number] for BLANE GAXIOLA HELADIO [id number] 04:50:00 Test Item Value Reference Range Interpretation Comments PHOSPHORUS (BEAKER) (test code = 2.7 mg/dL 2.3-4.7 604) Software Controls Engineer ID - SOPHIA [id number] 04:50:00 Test Item Value Reference Range Interpretation Comments MAGNESIUM (BEAKER) (test code = 1.8 mg/dL 1.6-2.6 627) Software Controls Engineer ID Aspen CORTES WBASIC METABOLIC [id number] 04:50:00 Test Item Value Reference Range Interpretation Comments SODIUM (BEAKER) 137 meq/L 136-145 (test code = 381) POTASSIUM (BEAKER) 3.1 meq/L 3.5-5.1 L (test code = 379) CHLORIDE (BEAKER) 100 meq/L 98-107 (test code = 382) CO2 (BEAKER) (test 28 meq/L 22-29 code = 355) BLOOD UREA NITROGEN 20 mg/dL 7-21 (BEAKER) (test code = 354) CREATININE (BEAKER) 0.91 mg/dL 0.57-1.25 (test code = 358) GLUCOSE RANDOM 111 mg/dL 70-105 H (BEAKER) (test code = 652) CALCIUM (BEAKER) 8.0 mg/dL 8.4-10.2 L (test code = 697) EGFR (BEAKER) (test 79 mL/min/1.73 ESTIMA MANDO GFR IS code = 1092) sq m NOT ACCURATE CREATININE CLEARANCE IN PREDICTING GLOMERULAR FILTRATION RATE . ESTIMATED GFR I S NOT APPLICABLE FOR DIALYSIS PATIEN TS. Software Controls Engineer ID Aspen CORTES WPROTHROMBIN TIME/[id number] 04:19:00 Test Item Value Reference Range Interpretation Comments PROTIME (BEAKER) (test code = 15.3 seconds 11.9-14.2 H 759) INR (BEAKER) (test code = 370) 1.2 <=5.9 Effective 11/01/2018: PT Reference Range ChangeNew: 11.9-14.2 Previous: 11.7- 14.7RECOMMENDED COUMADIN/WARFARIN INR THERAPY RANGESSTANDARD DOSE: 2.0-3.0 Includes: PROPHYLAXIS for venous thrombosis, systemic embolization; TREATMENT for venous thrombosis and/or pulmonary embolus.HIGH RISK: Target INR is2.5-3.5 for patients wiht mechanical heart valves.CBC W/PLT COUNT & AUTO [id number] 04:11:00 Test Item Value Reference Range Interpretation Comments WHITE BLOOD CELL COUNT (BEAKER) 14.7 K/ L 3.5-10.5 H (test code = 775) RED BLOOD CELL COUNT (BEAKER) 4.23 M/ L 4.63-6.08 L (test code = 761) HEMOGLOBIN (BEAKER) (test code = 12.0 GM/DL 13.7-17.5 L 410) HEMATOCRIT (BEAKER) (test code = 38.5 % 40.1-51.0 L 411) MEAN CORPUSCULAR VOLUME (BEAKER) 91.0 fL 79.0-92.2 (test code = 753) MEAN CORPUSCULAR HEMOGLOBIN 28.4 pg 25.7-32.2 (BEAKER) (test code = 751) MEAN CORPUSCULAR HEMOGLOBIN CONC 31.2 GM/DL 32.3-36.5 L (BEAKER) (test code = 752) RED CELL DISTRIBUTION WIDTH 13.6 % 11.6-14.4 (BEAKER) (test code = 412) PLATELET COUNT (BEAKER) (test 207 K/CU MM 150-450 code = 756) MEAN PLATELET VOLUME (BEAKER) 9.7 fL 9.4-12.4 (test code = 754) NUCLEATED RED BLOOD CELLS 0 /100 WBC 0-0 (BEAKER) (test code = 413) NEUTROPHILS RELATIVE PERCENT 80 % (BEAKER) (test code = 429) LYMPHOCYTES RELATIVE PERCENT 7 % (BEAKER) (test code = 430) MONOCYTES RELATIVE PERCENT 9 % (BEAKER) (test code = 431) EOSINOPHILS RELATIVE PERCENT 3 % (BEAKER) (test code = 432) BASOPHILS RELATIVE PERCENT 0 % (BEAKER) (test code = 437) NEUTROPHILS ABSOLUTE COUNT 11.76 K/ L 1.78-5.38 H (BEAKER) (test code = 670) LYMPHOCYTES ABSOLUTE COUNT 1.04 K/ L 1.32-3.57 L (BEAKER) (test code = 414) MONOCYTES ABSOLUTE COUNT (BEAKER) 1.35 K/ L 0.30-0.82 H (test code = 415) EOSINOPHILS ABSOLUTE COUNT 0.36 K/ L 0.04-0.54 (BEAKER) (test code = 416) BASOPHILS ABSOLUTE COUNT (BEAKER) 0.04 K/ L 0.01-0.08 (test code = 417) IMMATURE GRANULOCYTES-RELATIVE 1 % 0-1 PERCENT (BEAKER) (test code = 2801) POCT-GLUCOSE [id number] 22:30:00 Test Item Value Reference Range Interpretation Comments POC-GLUCOSE METER 121 mg/dL 70-110 H : TESTED A T [facility] 6720 (BEAKER) (test code = [facility] [place], 1538) [address]: Software Controls Engineer/Techni sophie ID = [id number] for Marbella Daniels Fungal [id number] 13:00:00 Test Item Value Reference Range Interpretation Comments Fungal Panel1 (test Refer to individual code = 2549) Aspergillus, Blastomyces, Coccidioides & Histoplasma Ab results. [facility]PO[facility] [id number] 11:50:00 Test Item Value Reference Range Interpretation Comments POC-GLUCOSE METER 85 mg/dL 70-110 : TESTED A T [facility] 6720 (BEAKER) (test code = [facility] [place], 1538) [address]: Software Controls Engineer/Techni sophie ID = [id number] for JANY ESPINOZA RAD, CHEST, 1 VIEW, NON [id number] 11:29:00Reason for exam:->shortness of breathShould this be performed at the bedside?->YesFINAL REPORT RAD, CHEST, 1 VIEW, NON DEPT INDICATION: shortness of breath COMP ARISON: Prior day's exam FINDINGS: Portable frontal view of the chest. IMPRESSION: Support Lines:PICC tip overlies the right atrium Lungs and pleura: Right effusion and basilar atelectasis No pneumothorax.Heart and mediastinum: Stable contours. Stable surgical changes.Additional findings: None. Signed: Madison Davison MDReport Verified Date/Time: 11/09/2019 11:29:21 Reading Location: [facility] Radiology Reading Room [id number] 05:40:00 Test Item Value Reference Range Interpretation Comments PHOSPHORUS (BEAKER) (test code = 2.6 mg/dL 2.3-4.7 604) Software Controls Engineer ID - PEACE [id number] 05:40:00 Test Item Value Reference Range Interpretation Comments MAGNESIUM (BEAKER) (test code = 2.2 mg/dL 1.6-2.6 627) Software Controls Engineer ID - PEACE LBASIC METABOLIC [id number] 05:40:00 Test Item Value Reference Range Interpretation Comments SODIUM (BEAKER) 137 meq/L 136-145 (test code = 381) POTASSIUM (BEAKER) 3.6 meq/L 3.5-5.1 (test code = 379) CHLORIDE (BEAKER) 104 meq/L 98-107 (test code = 382) CO2 (BEAKER) (test 28 meq/L 22-29 code = 355) BLOOD UREA NITROGEN 21 mg/dL 7-21 (BEAKER) (test code = 354) CREATININE (BEAKER) 0.93 mg/dL 0.57-1.25 (test code = 358) GLUCOSE RANDOM 94 mg/dL 70-105 (BEAKER) (test code = 652) CALCIUM (BEAKER) 8.2 mg/dL 8.4-10.2 L (test code = 697) EGFR (BEAKER) (test 77 mL/min/1.73 ESTIMA MANDO GFR IS code = 1092) sq m NOT ACCURATE CREATININE CLEARANCE IN PREDICTING GLOMERULAR FILTRATION RATE . ESTIMATED GFR I S NOT APPLICABLE FOR DIALYSIS PATIEN TS. Software Controls Engineer ID - PIAYA LCBC W/PLT COUNT & AUTO [id number] 05:36:00 Test Item Value Reference Range Interpretation Comments WHITE BLOOD CELL COUNT (BEAKER) 14.8 K/ L 3.5-10.5 H (test code = 775) RED BLOOD CELL COUNT (BEAKER) 3.78 M/ L 4.63-6.08 L (test code = 761) HEMOGLOBIN (BEAKER) (test code = 10.9 GM/DL 13.7-17.5 L 410) HEMATOCRIT (BEAKER) (test code = 35.3 % 40.1-51.0 L 411) MEAN CORPUSCULAR VOLUME (BEAKER) 93.4 fL 79.0-92.2 H (test code = 753) MEAN CORPUSCULAR HEMOGLOBIN 28.8 pg 25.7-32.2 (BEAKER) (test code = 751) MEAN CORPUSCULAR HEMOGLOBIN CONC 30.9 GM/DL 32.3-36.5 L (BEAKER) (test code = 752) RED CELL DISTRIBUTION WIDTH 13.8 % 11.6-14.4 (BEAKER) (test code = 412) PLATELET COUNT (BEAKER) (test 190 K/CU MM 150-450 code = 756) MEAN PLATELET VOLUME (BEAKER) 9.9 fL 9.4-12.4 (test code = 754) NUCLEATED RED BLOOD CELLS 0 /100 WBC 0-0 (BEAKER) (test code = 413) NEUTROPHILS RELATIVE PERCENT 80 % (BEAKER) (test code = 429) LYMPHOCYTES RELATIVE PERCENT 6 % (BEAKER) (test code = 430) MONOCYTES RELATIVE PERCENT 9 % (BEAKER) (test code = 431) EOSINOPHILS RELATIVE PERCENT 4 % (BEAKER) (test code = 432) BASOPHILS RELATIVE PERCENT 0 % (BEAKER) (test code = 437) NEUTROPHILS ABSOLUTE COUNT 11.75 K/ L 1.78-5.38 H (BEAKER) (test code = 670) LYMPHOCYTES ABSOLUTE COUNT 0.94 K/ L 1.32-3.57 L (BEAKER) (test code = 414) MONOCYTES ABSOLUTE COUNT (BEAKER) 1.28 K/ L 0.30-0.82 H (test code = 415) EOSINOPHILS ABSOLUTE COUNT 0.62 K/ L 0.04-0.54 H (BEAKER) (test code = 416) BASOPHILS ABSOLUTE COUNT (BEAKER) 0.06 K/ L 0.01-0.08 (test code = 417) IMMATURE GRANULOCYTES-RELATIVE 1 % 0-1 PERCENT (BEAKER) (test code = 2801) POCT-GLUCOSE [id number] 22:16:00 Test Item Value Reference Range Interpretation Comments POC-GLUCOSE METER 94 mg/dL 70-110 : TESTED A T [facility] 6720 (BEAKER) (test code = [facility]ena[facility], 1538) 56570: Software Controls Engineer/Techni sophie ID = [id number] for Word Marbella noyola Lactic acid, [id number] 22:09:00 Test Item Value Reference Range Interpretation Comments Lactate, Venous (test code = 0.96 mmol/L 0.5-2.2 2871) FAIZA (test code = FAIZA) Software Controls Engineer ID - BS Lab Interpretation (test Normal code = 83742-5) [facility], [id number] 22:09:00 Test Item Value Reference Range Interpretation Comments LACTATE BLOOD VENOUS (2) (BEAKER) 0.96 mmol/L 0.50-2.20 (test code = 2872) Software Controls Engineer ID - BSOxygen saturation, [id number] 22:07:00 Test Item Value Reference Range Interpretation Comments O2 Saturation (Measured) (test code = 64.5 % 01227-3) [facility] HospitalOXYGEN SATURATION, [id number] 22:07:00 Test Item Value Reference Range Interpretation Comments O2 SATURATION (MEASURED) (BEAKER) 64.5 % (test code = 1455) POCT-GLUCOSE [id number] 17:32:00 Test Item Value Reference Range Interpretation Comments POC-GLUCOSE METER 103 mg/dL 70-110 : TESTED A T [facility] 6720 (BEAKER) (test code = [facility] Estevez [facility], 1538) 36578: Software Controls Engineer/Techni sophie ID = [id number] for BE LL, BEAULA FINE NEEDLE ASPIRATE BY [id number] 15:46:00Medical Cytology Report Case: [id number] Authorizing Provider: Luis Alberto Santiago MD Collected: 11/07/2019 04:04 PM Ordering Location: [place] [address] CCU Received: 11/07/2019 05:12 PM Pathologist: Berenice Eng MD Specimen: Lymph Node, Interlobar, Right, Station 11R LYMPH NODE, INT ERLOBAR, RIGHT, STATION 11R, FNA BY CLINICIAN (CYTOSPINS AND CELL BLOCK OF ASPIRATE): - SATISFACTORY FOR EVALUATION - NEGATIVE FOR METASTATIC MALIGNANT CELLS - EVIDENCE OF LYMPH NODE SAMPLING (POLYMORPHOUS LYMPHOID TISSUE PRESENT) Signing Pathologist Direct Phone Line: [phone] signed by Berenice Eng MD on 11/08/2019 at 3:46 PMPlease also see surgical pathology report [id number] and cytopathology reports [id number] and 1350. [id number], [id number] lower lobe mass, mediastinal adenopathy, abnormal CT scan of chestLYMPH NODE, INTERLOBAR, RIGHT, STATION 11R FNAReceived 35 ml cytorich red fixative sample; prepared cell block(A2) and 2 cytospinsCollected: [id number]: [id number] tissue is seen in the cell block. Metastatic malignant cells are not identified. Cytospins contain predominantly blood.The interpretation of this case included the use of immunohistochemistry or special stains.Control Slides Examined: In-house known positive controls were evaluated along with the test tissue. These control slides run alongside of the patients sample show appropriate staining. Internal positive and negative controls when available are evaluated Immunohistochemistry technical testing was performed at [facility], Pathology Laboratory where it was developedand its performance characteristics were determined. It has not been cleared or approved by the U.S.Food and Drug Administration. The FDA has determined that such clearance or approval is not necessary. The test is used for clinical purposes. It should not be regarded as investigational or for research. This laboratory is certified under the Clinical Laboratory Improvement Amendments of 1988 (CLIA-88) as qualified to perform high complexity clinical laboratory testing.[facility], Department of Pathology, [address] [place], [place] [address], [facility], [address] [place] [address], [facility]Good [facility], Department of Pathology, [address] [place] [id number], Xcbv Needle Aspiration by [id number] 15:40:00 Test Item Value Reference Range Interpretation Comments Case Report (test code Medical Cytology = 104) Report Case: [id number] Authorizing Provider: Luis Alberto Santiago MD Collected: 11/07/2019 04:11 PM Ordering Location: [place] [address] CCU Received: 11/07/2019 05:12 PM Pathologist: Berenice Eng MD Specimen: Lymph Node, Subcarinal, Station 7 DIAGNOSIS (test code = [id number]) FuZzEwMzNcZnRuYmpcdWMx AGvccgRoJQzgq6DgO5CqFd AwMFxhbnNpXGRlZmxhbmcx NXCtEVQ6qbXyXGOlKAgjZK IdQVexBj1hhNAjpFmdEiVh BEKcc4munyDBbksilHo7o4 srEXWsOiH6vCPfGCpyD6ie ffKrsSAqQHFuUVy5eN23VA YcqC9jiYWzILqboyWfEPtv bfMuwaRgTvs3USFoW8ijBZ WxVNJeJ9ReUF7uIUZtChk9 ECQ6CRI9nKjri6B9kDFpsN FzsEqqYjZjVvYxVRKDq6Md PCj5sEdaH0YcNLVoXbU2fU QgUGFyYWdyYXBoIEZvbnQ7 nI42UKptkdO8kLFms1Caf7 7lk843uE9tjJQbFEF2RAYp QLIyxKOgJHMoPYW1ZVIofB NbK7d5JyHrpAHdZ3N8RkAs dUHwD1P2FqNvuXZqO9O7Tk AkkAMnDWIckCUnQo3okJHi wMZulh6wfc86JXN8x4CqcR suJHD0UOS3NxBzGi2tgLIr VMDmLQ7cYdQycASfMHQgte 41yAcbBKhryiHsuG1sJnMt ANNkcLOxTWKxJV4dlMReVZ LwyT6kvcbtUQYkZlBwdjtw KMJyuEmjrfOzPx7fkMjfVZ R4BLspR5zadY6lGxX7OChj C3stfA8zMDi1XPaojGH5NF EkyL9kRM3eeclig7clOpWq FS9boppgd0fqIwKwVJ1nxk f6c0kcRxJxWX3kqjrwh6xo NzIwXGhlYWRlcnkwXGZvb3 GabywzZGXic0MtH2JsfTbk O78nfMarP89jEHGntMehyR 1kyCvslA2xBgIsAtKrUMqo bFxwbGFpblxmMFxmczIwXH BsYWluXGYxXGZzMjAgTFlN VVmqTn5RHOkqO2TPK6YQDX 6EGFcsA4OQFIdATcJ8BCOD AyBvOfqlD2fGXdsPVFPEEQ jRKSIQX5TBChGvGB2PLCVY ZLhhGasTV6abA2ViRAKSVC JBVEUpOlxwYXJcbHRycGFy XHFsXHBsYWluXGYwXGZzMj YsyZtepA8rEtGgFxTtGBEw JH2dba6eB9VKRTJQDBMNW2 ADEYQJVlUARxDPUZPYKJ7W XHBhclx+UE0igr0eOrCTVK ILKhBbIk6EMZ2MASERPUOX HUKiZMRVBArONO5YPBSSAF xTXHBhclxwYXJkXHNzcGFy ZID1xSRveuIewIcmmChnaR 5cZjBcZnMyMFxwbGFpblxm MVxmczIwIFx+QA9zyk9aRN PPGWUQJ2QuF9FuWLtWSMjt Jo6TFDTPZA3AAItIGjMiMH 9WRM6HUdLWS7HQXYgHGAKR Z4iWEAQVB5BFATJIVyMTSX 3NVRqhLZN0x8qfxRItOLRc dGUxODAwMFxhbnNpXGRlZm tfbacwYSWhHHL4ohSdEHIf UFriWQKrEFouFc7wnTClvE xpJzIvMSQph3jvutFVtfdr oSm8m5qnYJZfTnA9jFIpGZ bbO4ssucRjsVUwXUAaECx7 jY20XCQveQ0rsTPpKKtlxa CaStY6SShyEMKzOuM8YSTq xJCxLOOsK1isOPUjTRuaZP ZqZVagpIYdTOP7sGcuw7V0 bGVzaGVldHtcZjBcZnMyMi PTz8ElUOu4vIeaR6WeZYCl IeL6hFKsSKJgWPytZVGjVD FuwlK9kB40KJcjfqX3kCWp v0Xeq03dt280lA8ahFSoPS Z6NIBwZKHpzOHoMDCqJNC1 QIYrnJQuB6ohQTXoMI9yfv pyZAcuNZkcKQJwgTZ0ZGSe sTZhO2VsHATxJEchMNFfji g1AmUfPb6utCLbnPsmSDpp v4hci1svkNTaFnn2BOOqAx BpNufzWTwzf3Pvs9kfCLJh yk1yBCQ6iEVisEyit1Z1uK QyDBGtaAAtIAWwJH8usLNw XOHouH8nzwpwOIBdAyMlxo ofGYXzzRwavdDoAn4iqOcq QVI8NMccV4nayH6dYuF1LT osX2tdyZ8pLZl5CLdkEFUy tMZ1jnK5YUZkqIXvF1YxuL 9aGZQwBR8zgbk5c0llPPZ3 GPmiVEVfAxI9uxG2XDJczD RjAWTuwDpvMBftp031EJO2 BpVfZTStc3GuF7WndHvhN0 2myOszW08mCDGgcLmviL4q bWwdyN4bUxLbXuRcUIqriS keHL0oLRTqY6sxbYFoEFLg OYTuU7vdTjSbsI9nzHnnTH nrsiDgJHCaWzr2DZTqmJPx ETXoNps8NHVuGLBsJ52lmu usZJJ2dL8qm7lsb4CqQEbq JQR2PJSia92tJDqbuqU7XE gmYp0mYnWgRFV8GBvtCDU0 fQ== COMMENT (test code = h7lhoYUpZCQliWLrLcPiFL 3358) WsDLMsp3beCPEmeOYoNsLj MzNcZnRuYmpcdWMxXGRlZm Elc7ost591kZPbu8qoJNYq IeN1tFQrSJTqhRYwH656CS NcBYnzi3vvn7YmWMUviVRg h1J6VAHPigumhWd8eWhkH8 5ri9E9VntrK1lhEZMtUQDt T9InDE4xUBGeErr3FLE4BB Q5RQNuZZBvW2BoVJ4uFDNr aDIxYSl8o8vbfUiwANXnYV I2z9liZQkoljIkIF1qim1w yXq8h1kajhQhBCImSSVosO UJTEWbT7JcxBmoSm1cxHo7 dAizSmtnSYX9Pfq0NB6ykv 51usd4vDziLHVlxffpDhW1 HCihDXAvhouoLQy8UDucBG JnbDcyMFxtYXJncjcyMFxt YXJndDcyMFxtYXJnYjcyMF mdSSKgDTN9WLaun781IHJ9 DYjaj9bxk8wmwPFlWkl2VI LoWpJfYeswVRhou0Ygc5hu BSSenz6uMPB0mYAyvEtmc3 I7rSWnLIOppSJojjBmEOBz LkJ7UKssNK2nmf53RPOqMS T1qz7zqSBthHoakbPzuXUv OIzwY3IvAEHro561CXJnX8 IpJXQtd2Z0aoSsZfDgKFNt uHX4brN6PADaPNx5sMNcbn W0xeMveRXaD4pcaL39UrWo dEOvI9IftZ19GeHlfMLrT4 BsxN91KtNagVRgP0FxbL64 OaCawBHdADTerYViVn4ulC WzbIKtq0JgvOYgWMqpS48g x090XUSvblDnH8kfvOUrtx brqAXudvczZOjujgO8CZId XHBsYWluXGYxXGZzMjBcbG FuZzEwMzNcaGljaFxmMVxk WrLmSSHbGZzzO3mjJjEmOk MyMFxwYXIgUGxlYXNlIGFs f04aq5FzAEQ5xzqmI9IgKK RcqBfvwF3mbQCeHSHwoqPr SaHnTYA1PpyfKO8tYIJ9vP 4tDNTwv9ykF1zosaPhq9U3 ozESIkAbSDM5HKUougMsZY B5EG9hOQIgms6= CPT Code(s) (test code v1vjqHGxTBTcuDLsLhZlSI = 3357) VvUUNjj7lbIYZhyFZhOeUz MzNcZnRuYmpcdWMxXGRlZm Lix6wpe438eOGuq3tlKFTs OiC0mKKcPIDpmYZdA694e1 ifx7hdqtLogQH3KFHtOMD3 UPuxthKkdxQ8IMrywXOuJh D4YRalroYrYYuqgjAyjbDr Dfd3TFWpD949JGX2vShpz8 dzXVA5GNQjUWKvKbDxZv4l sDJrY231ICYsUIFIZLCczE r8OVRahyRaraBrxEBYi185 G113l2xmIBAvlsZymOkIwd arc0thL001QCHibBJjumKi RjNfKUXqxSNmbOV4MHPlAE 2vwhdwEsUwML3ybgikEyYo JE8ndyk2IrTuQK4xekvfHw UpWAhjALHotqttLTWeu2Mf cltmYF9qQ0Brf7Z8iA3ovY AeVOCyvRKgTkHvKGHwio8z eEHyCJkxv2AsPYF4kmK8gZ NtkQOwLOGmEY89Cbmyj2Vk SwkeBDK9LWVxjlMfh3Nsi9 wqRvOzbcHeX1hjT3ZeHUIw MXGgITIhWjOempDcc2Qas8 WmjCJmeBy9l4caVGOsZWEt mVgsh9pbEVO2FFUxY5N3dA Uws3nrXSyzGGUssXI9gzgu WWqoOSOpdgM4tqqkCHfsQC NaxRM2zpnkXVnhHGMwNmR1 dnkpIMrzJRDyXWZ8KHkqx4 17NFS1UIvsRobnCByuCLBs bmNvbnRccGduZGVjXHBsYW luXHBsYWluXGYwXGZzMjRc lUmxcCsokR8zWfEwVyKsFF ehLQ6rMKFgI1oyqLRiQYFj SVDaO5dmCqBlhP4gsTboQO comlEbDNm0ZWcjZSS0WGKl NVxwYXJ9 CLINICAL DATA (test l8zfgEFvOXJlrCDiNyQcME code = 3355) GkWQWbp5dsEQVjlEZhUaJk MzNcZnRuYmpcdWMxXGRlZm Yji0icf290iWEgx8ujNXMr ViU2pTAbWTQakHFyI195MJ AsJZveg7dse5RyOVYdlJWu u8P5NVWSlrqofEc7xWniP3 7yi9S7MjuzF3umMKKpZZJc H3DzYU7fVFSqDff3KKW6GN Y6OMGyWKDqX7HtIV5xFGUm dISiSDj3y6emyEeqMDFhXJ W9g4fwWXcjmhSeDH5die2t jUy2x1pqfmPbMGJmDHTwcT NQYWUnB5PubEodTh7zxAw5 kTfuMugbFKV0Coe1YB9lxu 70tmr1rUfmTLMpczefOqP8 YNthMIHfwpxkBUr7OZicUM JnbDcyMFxtYXJncjcyMFxt YXJndDcyMFxtYXJnYjcyMF hkLLJnDLU4WAmpl350UOF7 ZMdgv3yjh8fmbXSrZtw9XW NlMfTjPbykJWtph4Gof9ad ZTGbiv9cGKI1eUZkcThhc5 G9gRCfMVDygMVnwsWnATLa GmM8ZWzdGV1exv83AWLxRO S3zg0dcPUpvDawueDxrDDj HCrxD7WaTYKcf152WSRgC1 OjNSYsb1F6hrGfKgEoPRJt xPM1rhJ6VANsATn9nHTsjm T8ugXygOOmZ4mpuL70WxUu wYCrT7ZgwZ75KwMczXTqV2 AztY69ZhKeqAJxN8QxvK30 PbCtvNPjKTOirEEwQa0kiD EndIRnq2LsnSNpGJnpU65c j969BNSfprVrK1shzMGxxa ckiHFqhkypKKlfqhR5RKJv qtBdhPvosO8pPoXvQoNzTK bnAY7rBJMuZ4fauJUbYYDn CWNpN7xnWsXwhY6dsLmoAD qwpuGjDDPeL3v9ULpmn5Du IGxvYmUgbWFzcywgbWVkaW QznSekECgfAMPfsf4bWSOl dKczXEZxi9DfFYooV1Ywx3 NhbiBvZiBjaGVzdFxwYXJ9 SPECIMEN SOURCE (test t3uxdUFdJXAloJWxZlLfIK code = 3377) CqFTDas1sbBAWjjDSgIoSf MzNcZnRuYmpcdWMxXGRlZm Mmm4qjw002gBYzl3qaHWVd KuU3jZJgRQWakQJnU080b5 yiu4mfynMssOQ8HDLyRKP7 YZjkctUfckR4SSmteYWxPm Y6ZIsklyUeTYqlbnEggiPq Ycs2EYIvG435NGC3wBtax2 dcTOW4GJZtCQKuByHtNv5l xUEdT557GNCiFTBEXFCtqT k2KNUfzdGzruOufSQRe837 M817p5yqIEIgzuMfoPmXhz yov1fxB705UQNclVKmzhHl KlTjJMBysVOcqAV8KTEeXW 2gnrgkHmOaXN7vwlqdWjVm BK0cgax9JqWxAT3icmxfJy SrFQryOKJuscgkDXSyf0Cg dgpzRG0gP2Kzl8I4qF2ryB QvDTDnlAMjXcGoNBLtdk3n qVXeJQccl5GxOCX3agP6aX JbmQIbEWXrDR81Afqkn8Cr AevgKJM1XIYaawPup5Xkd8 leHfJlokAkF3kqJ6EcIYUd QVTzNECeQtRndvPys1Lah3 EgwRDpeCa9r0xhJOGiZJLa mRnan3nsEWV3YLCvT7R4fD Yml4osJFbhNUXnsEA4odup SQltXVHzciO7azeyMHspXI CwbRP6uossXJtkBRSpTeA6 hfrxQXeiITLgMBT8SAqgy5 42MXY9BYtuEjzkDBgxAEHi bmNvbnRccGduZGVjXHBsYW luXHBsYWluXGYwXGZzMjRc xYmrsJuqaG6lDqYaVyEfJT hoYE0vKELtW9kcgPMwFAFm PQKxB3hhZeAuxM7qhFwvNP vqdxVzKEuWOSWQOF4IQZBh IFNVQkNBUklOQUwsIFNUQV DGR77qExTTRlPbeSThyR== GROSS DESCRIPTION (test c1bskOBdYKUrjSAgBnJkOK code = 3366) CnYTJpx2szOQZgrBLtJqHj MzNcZnRuYmpcdWMxXGRlZm Lzk6kyt395rSBwi0hqLNZu MhN6bHDuLGZhrFFlC550ZZ DpDLbek8jlp9VkOYIgtEFc q6V6GJDAplcqoNm0wMuqC8 8wi2W2XqiwH3huHFMpTKmz SXFkCKlroDHvXRH4CYAnAF I9IOvegqYtzxM2KWcfoWBb IbF0NAc4e8tfzMssRKLhSH I1b6jdGFxxsiLtIR4fee0g sVr2j7eihsJxVESxAUFvkB LXHKJeE1PkbMxyOn0vqWt7 tTrnXqnuFFQ6Jec0MD3vuo 46pes3xRdeDAKgcvdsGfH0 UCbkTUBofunnQSs1BWvxPJ JnbDcyMFxtYXJncjcyMFxt YXJndDcyMFxtYXJnYjcyMF kbWRXxSLP8BXwqw338WAT2 DXgbd7xvx1scgRTfCdo4HW WjNgQaGufhDPmic3Ewe0tz NGGbjx5rNXW9jWEwpYyue1 M8jIIgXOQorDNhurXrWMTt KxQ0SWtmYS8ujk66FEQwCA S7ys7ikLBtwFzfzgOgiWVs BBdgE5YgMRDsz506HNFcA2 VxXNCfu0G6jzXrVxUrUPPd rHZ4szN3RGZjPTq4nCCnoe V4wrWamNZoA9jegJ51PxOn dKYmD7YfsZ76GqKxvBXvJ6 QykQ71LuYazLEaQ6SouH38 JdMcrUMrJBKodLFmMk8zgG KpzZSta3NexEAnTDimN17o f911ULKzvzMqW3bzpPJwbc xwbGFpblxmMFxmczIyXHFs XHBsYWluXGYwXGZzMjJccG tatO4wMvPzBcUxKjEIDZYy aXZlZCAzNSBtbCBccGxhaW 5cZjFcZnMyMiBjeXRvcmlj lONfBNJjFoj7HDLzjcLef2 FtcGxlOyBwcmVwYXJlZCBj IEnwBTPfu8NaJDArCNWtki MkVyMhkQCwr1SuheZsiFhs rL9nBkYlEtFmRepaDAUkN5 9sbGVjdGVkOiAwNjAzMjBc aUCgUTLzG7GvseRhHxAbQw AzMjBccGFyfQ== MICROSCOPIC DESCRIPTION q2dbcSGwWDTinFZbKnVpWT (test code = 3371) MgKAOsv6slJETuxYLeXnNd MzNcZnRuYmpcdWMxXGRlZm Maw5krd504nIFvm5byNOBi QjW7tHLuXYJpdASxG178c8 ozo4yohjGayJO7KVGtHCL0 HRsgggYriiF9YDujxRPfBv K9UNsamnMmIXqrgcGalzTy Exx1XPMgG748WJX4hRyyt1 kkDWL1DNVyVSJsKjMnKd9h yDBiP438RHLsBAZVDBYwlW d6LWZdbpSjjqUllTQGw749 L334q5maWGOdrlMzpZvJla lnu3ieR635SXEkqIRwpcMw UsAsUOXjpPSdfMO7AAYoDQ 4jrcwtSqGwIA8jsxzeWqSh AX0mtof8VcBlRW3gnsjzBq WiIPjoMKZirqhfWYHfi8Rd mwmsMI2yB4Cue1H9yV6wlV PcYIAbfYNlDaGuKFKhnj4z bKDxAJrov5AbTGD9tkC9pE PoeAXrLCYbRQ43Iwgxj7St TtwqWVB1RLUjnpLoq0Vjl6 szNpWunoRxD3geS8LtEBUq JTCkNVOvBmLcirSvq3Hlf2 HtzMPuvPs6z4ejNPKoSRCy gEfpx6hbIDZ2VLDlW1I9jW Gce0qmZWpnIAElzHF8rrwi POunXUMkicZ4kaldQBevFY IxjTU4ihdwAZjaLMKdIjB4 tednTYtbIJNrMMW6NTjfy6 18RVY0JAzlZkueQWrmAKMj bmNvbnRccGduZGVjXHBsYW luXHBsYWluXGYwXGZzMjRc gWgirGdulZ5fRbPrEeVsNK wePU3tQDZlM8vyhHUlCEQg KOFqP3fvZiCobL1owKsbYI taplQnVNLdtcCdud9wBA8l cGFyfQ== SPECIAL STUDIES (test s1adaCTgPOYxo1ciCZAsiH code = 3376) FuZzEwMzNcZnRuYmpcdWMx VFwcvtVhDOekk3QiH8JdPt AwMFxhbnNpXGRlZmxhbmcx NPOxPIC2dgVbCNFhWWvkXK ScNPwsEm9bbJDgkKtnNdCu LUQgr8lwsnBCdjdmzGe3a5 rxJJOePcU7vGTyMSfnR0fe vkZtxZUbS7XvhQHgiEx3h3 wfCcAwLcP9gJGcZLsaH8xv duUqeFLiYWLsPAe9uM67HD WxiU4tmHBwFHtcvmDfZmG8 WSjgFICjMkA3LXTdiDZvKW OvW0xrZERaRAsxUMLqEZfo nBAoSVG3qAvzu1G4tCGpjV GgbGzeEmRbPtNxWcOTw7Ey VJp5cIeqK9OlRWMbAaS8dU QgUGFyYWdyYXBoIEZvbnQ7 cRffjoSbw64vrRYqCZTwXZ NcEbRnsUjhWJEmHKLTe2As oQjtDJN3yPk6nOpfRimiFR V9Itn9PG2knd98bya8xPio EUHfzrzzOxP1JKloNXYclc ukDKt8XKgtUSJapME8XHPd tIAcC0GxCOIaLR5wfsb2VJ H2EMwaSQQpXpY5AHPqoJOn OGQhbNzrQYonw991OYF7Dt CzIF0oP1Ktc4D6eZ9emSDc ZLRjyFCdCoQxYTQmdj6dyQ LhMXmtv5KfXGB8gvT1tCCt fQAhCGTaQG31Iytiz9YqVy avn8ToV24uiUU5GFulx2gr YR5wSnI8mrJqZVfeq8sbjA 1dBiY7ODcwDW5oWY1jOHXt xL7vsedxNCLvWlWbftnzFM ZycVxjwhJaMi6hrCciUWF1 AVfrQ8garY0qLdQ0EHxfV6 qniJ1zNWw9RSvcuHK1ZRQl iQ7sMN9meqipc5dvCSpxOO xnNZDijlW2fxH8APBjeGZz B5VjhI6mWQWyFX1hikbou5 sxTWV7SKagLGBkBPS0DaNn HUJwk0Lnias0LnSmr0ArdG JlHXvbT88mk706JVDfagEx W5dfkLOpsuneiYYslqqaSG snicS8FCTrRZEjUAffWSDm XGZzMjJcbGFuZzEwMzNcaG ljaFxmMVxkYmNoXGYxXGxv E3wcRvMdP9AzAYBzXmSyHO gmRAwcbJSymUDwxBX7bF6s ON0zNIYsxLKfY3CvYARfqo JzkAIgQSK4pXYfhCQwSX0k IAsfqCHbi0jhq0EtJ5czmH iduST8TR2uMWRjDCSkGVjv a5BkqE2tTopxeKCqowgpXS xmczIyXGxhbmcxMDMzXGhp R4nwTpMqYIHurFkkMDfzm8 NoXGYxXGNmMlxmczIyXGx0 cmNoXHBhclxwYXJccGxhaW 4bRcUvHwYjCrxuLZ1yGERh U2fzfRLtBBWrYTXoH5tjFs VacG3keTpcYPpcKnVpKlPg KjEJz251rq6xQVCbtVTjqa AKbQVciV9eUQzgWXloGNyl mDJuGSyzx7qcGGPov8z3kE RnOVJfqvNoj4ptHVrxrcZl DNZmpRGmtNFdGJCzx27yGN xrnAezpFuaSBBxc4RjjVfq t9LdCjOyOIrsc2XxY34daI JvbCBzbGlkZXMgcnVuIGFs j80be6hvLBNjLdU9bRIugR C1wFVtuKEhv3CdgDutJSQe b6niYHRshv9mzypcbEHis9 PvzZ2qpxwsGRoxqPJqxmZp VRTrf8w6oPHjPJHlCBMiDN fyuCf3JXIga973ie7gkdJ2 rLGyKEZ0YClhBGXtTMOfwr UgZXZhbHVhdGVkXHBsYWlu XGYxXGZzMjJcbGFuZzEwMz NcaGljaFxmMVxkYmNoXGYx VEewS9ttVkTmM4PeOCLiLy WmsHWrU2ockWNdJUWmZEwl XGYxXGZzMjJcbGFuZzEwMz NcaGljaFxmMVxkYmNoXGYx WKumG6peLuZhX1LjTHUrIp IgIFxwbGFpblxmMVxmczIy IIhpzupvQQPlCSjfX2nhKj ZvGIEeiQgfORuez4PvCQAw BPZjTeutghVpLQx3dpXtJC BhclxwbGFpblxmMVxmczIy DSbetzqzEGTlVWglF1opIx GsSPCkaWelEVzaf7DjUENm XGNmMlxmczIyIEltbXVub2 zap7GxI7jpbEdthAV7FXVm O1clpEOkjDO9EIJ3oW0dGL crgtXuRIXfw7JyILSfIYHv YdD9tD0oMIM3PbBYfBmbHZ BsYWluXGYxXGZzMjJcbGFu ZzEwMzNcaGljaFxmMVxkYm VbJIOpGAclH7bhDnOeY2Vb BKZyObVzfWmsQVgqGCw1Ko xwbGFpblxmMVxmczIyXGxh vykcNFFdEAlqI6akRzMxOM XfzKrfAVefr4PyVKZqGOKx MlxmczIyIHMgTWVkaWNhbC ZGOR96BZXbXQSutYiqpM4b eDUWVPCxaqD3z2N2IDqnYM HfPTi1JBisvgQiWZCnlJ4m WNZoQM5uLSm7teRfOBBoq0 HbHQ1wGQEjdCCbPPD6QBLq e3JqZ4Szu5UpUWUqJVPlyy 2lavZgGqHGbQDuGGBlhr17 UERmMA2tE7riYDSpFMVnix NuhWVye8XcGKFoxKY5zLCj ZY7YZzHPc30fGQGtYRBNqx GnMTLbfWrdqPK0jvQ0yE6x LiBUaGUgRkRBIGhhcyBkZX Fwmq4cjoHqEVEuYCGoe4Xb gQNmeEVwauVqC2Ubv3PsFY Dogq94KUzdnELmnr71GO0q A5Imj8KzwJ1kKZugLQObr5 AyrHWiiMRgYSTkl9JsY0gk xojaEEetuZQllP6pNPUbSY d0EKHpv5JvAEIdq9ApHlFr smVaUFZsEHKtVXCvtD83RK Z7rUzqwYenycMbHB3sOSWv rhUaTGHfMGIpcB8wAKxzdd JvCCEuhfX8k9X3VQowUZTv bhNwWwrfYKD9qeUsyoT8vV OrT4toiuavOYfjABHsi5Sj yR2vjRSWeERsf7UlsARkqQ LKsCXaYE0sviXpSO2jHYD9 ODggKENMSUEtODgpIGFzIH Q6DGbpOfrmWIW2keCpQICq o3TtBEllM3rrJ50dhLtpkN z7pPLigMuiePRftZNqHFJx tvD3r8S4TTKbk3CqpfhkPT BsYWluXGYyXGZzMjJcbGFu ZzEwMzNcaGljaFxmMlxkYm BkNCPeALavX5hrYeKdFzBa JvncZMA3qY== Gross assessment was [facility] performed at ([facility], = 2777) Department of Pathology, [address] [place] [address], Technical component was [facility] performed at ([facility], = 4210) Department of Pathology, [address] [place] [address], Professional component [facility] was performed at ([facility], code = 2779) Department of Pathology, [address] [place] [address], [facility] BY [id number] 15:40:00 Medical Cytology Report Case: [id number] Authorizing Provider: Luis Alberto Santiago MD Collected: 11/07/2019 04:11 PM Ordering Location: [place] [address] CCU Received: 11/07/2019 05:12 PM Pathologist: Berenice Eng MD Specimen: Lymph Node, Subcarinal, Station 7 LYMPH NODE, SUBCARINAL, STATION 7, FNA BY CLINICIAN (CYTOSPINS AND CELL BLOCK OF ASPIRATE): - SATISFACTORY FOR EVALUATION - NEGATIVE FOR METASTATIC MALIGNANT CELLS - EVIDENCE OF LYMPH NODE SAMPLING (POLYMORPHOUS LYMPHOID TISSUE PRESENT) Signing Pathologist Direct Phone Line: [phone] signed by Berenice Eng MD on 11/08/2019 at 3:40 PMPlease also see surgical pathology report [id number] and cytopathology reports [id number] and 1350. 76639, 46633Cfyst lower lobe mass, mediastinal adenopathy, abnormal CT scan of chestLYMPH NODE, SUBCARINAL, STATION 7 FNAReceived 35 ml cytorich red fixative sample; prepared cell block(A2) and 2 cytospinsCollected: [id number]: [id number].The interpretation of this case included the use of immunohistochemistry or special stains.Control Slides Examined: In-house known positive controls were evaluated along with the test tissue. These control slides run alongside of the patients sample show appropriate staining. Internal positive and negative controls when available are evaluated Immunohistochemistry technical testing was performed at [facility], Pathology Laboratory where it was developed and its performance characteristics were determined. It has not been cleared or approved by the U.S. Food and Drug Administration. The FDA has determined that such clearance or approval is not necessary. The test is used for clinical purposes. It should not be regarded as investigational or for research. This laboratory is certified under the Clinical Laboratory Improvement Amendments of 1988 (CLIA-88) as qualified to perform high complexity clinical laboratory testing.[facility], Department of Pathology, [address] [place] [address], [facility], [address] [place] [address], [facility], Department of Pathology, [address] [place] [address], QXPD NEEDLE ASPIRATE BY [id number] 15:39:00Medical Cytology Report Case: [id number] Authorizing Provider: Luis Alberto Santiago MD Collected: 11/07/2019 04:11 PM Ordering Location: [place] [address] CCU Received: 11/07/2019 05:12 PM Pathologist: Berenice Eng MD Specimen: Lymph Node, Lower Paratracheal, Left, Station 4L LYMPH NODE, LOWER PARATRACHEAL, LEFT, STATION 4L, FNA BY CLINICIAN (CYTOSPINS AND CELL BLOCK OF ASPIRATE): - SATISFACTORY FOR EVALUATION - NEGATIVE FOR METASTATIC MALIGNANT CELLS - EVIDENCE OF LYMPH NODE SAMPLING (POLYMORPHOUS LYMPHOID TISSUE PRESENT) Signing Pathologist Direct Phone Line: [phone] signed by Berenice Eng MD on 11/08/2019 at 3:39 PMPlease also see surgical pathology report [id number] and cytopathology reports [id number] and 1349. 20536, 58801Vhcal lower lobe mass, mediastinal adenopathy, abnormal CT scan of chestLYMPH NODE, LOWER PARATRACHEAL, LEFT, STATION 4L FNAReceived 36 ml cytorich red fixative sample; prepared cell block(A2) and 2 cytospinsCollected: [id number]: [id number].The interpretation of this case included the use of immunohistochemistry or special stains.Control Slides Examined: In-house known positive controls were evaluated along with the test tissue. These control slides run alongside of the patients sample show appropriate staining. Internal positive and negative controls when available are evaluated Immunohistochemistry technical testing was performed at [facility], Pathology Laboratory where it was developed and its performance characteristics were determined. It has not been cleared or approved by the U.S. Foodand Drug Administration. The FDA has determined that such clearance or approval is not necessary. The test is used for clinical purposes. It should not be regarded as investigational or for research. This laboratory is certified under the Clinical Laboratory Improvement Amendments of 1988 (CLIA-88) asqualified to perform high complexity clinical laboratory testing.[facility], Department of Pathology, [address] [place] [address], [facility], [address] [place] [address], [facility], Department of [facility]ology, [address] [place] [address], NNSDP [id number] 14:00:00 Test Item Value Reference Range Interpretation Comments CULTURE (BEAKER) (test No growth in 5 days code = 1095) BLOOD [id number] 14:00:00 Test Item Value Reference Range Interpretation Comments CULTURE (BEAKER) (test No growth in 5 days code = 1095) POCT-GLUCOSE [id number] 11:28:00 Test Item Value Reference Range Interpretation Comments POC-GLUCOSE METER 197 mg/dL 70-110 H : TESTED A [facility] 6720 (BEAKER) (test code = [facility], 1538) [address]: Software Controls Engineer/Techni sophie ID = [id number] for DEBORAH HENRIQUEZ POCT-GLUCOSE [id number] 07:49:00 Test Item Value Reference Range Interpretation Comments POC-GLUCOSE METER 85 mg/dL 70-110 : TESTED A T [facility] 6720 (BEAKER) (test code = [facility], 1538) 52216: Software Controls Engineer/Techni sophie ID = [id number] for DEBORAH SANDRA [id number] 03:51:00 Test Item Value Reference Range Interpretation Comments MAGNESIUM (BEAKER) 2.2 mg/dL 1.6-2.6 Specimen slightly (test code = 627) hemolyzed Software Controls Engineer ID - [id number] 03:51:00 Test Item Value Reference Range Interpretation Comments PHOSPHORUS (BEAKER) 3.6 mg/dL 2.3-4.7 Specimen slightly (test code = 604) hemolyzed Software Controls Engineer ID - LABASIC METABOLIC [id number] 03:51:00 Test Item Value Reference Range Interpretation Comments SODIUM (BEAKER) 139 meq/L 136-145 (test code = 381) POTASSIUM (BEAKER) 4.0 meq/L 3.5-5.1 Specimen slightly (test code = 379) hemolyzed CHLORIDE (BEAKER) 106 meq/L 98-107 (test code = 382) CO2 (BEAKER) (test 26 meq/L 22-29 code = 355) BLOOD UREA NITROGEN 20 mg/dL 7-21 (BEAKER) (test code = 354) CREATININE (BEAKER) 0.85 mg/dL 0.57-1.25 Specimen slightly (test code = 358) hemolyzed GLUCOSE RANDOM 100 mg/dL 70-105 (BEAKER) (test code = 652) CALCIUM (BEAKER) 8.1 mg/dL 8.4-10.2 L (test code = 697) EGFR (BEAKER) (test 85 mL/min/1.73 ESTIMA MANDO GFR IS code = 1092) sq m NOT ACCURATE CREATININE CLEARANCE IN PREDICTING GLOMERULAR FILTRATION RATE . ESTIMATED GFR I S NOT APPLICABLE FOR DIALYSIS PATIEN TS. Software Controls Engineer ID - LACBC W/PLT COUNT & AUTO [id number] 03:39:00 Test Item Value Reference Range Interpretation Comments WHITE BLOOD CELL COUNT (BEAKER) 13.9 K/ L 3.5-10.5 H (test code = 775) RED BLOOD CELL COUNT (BEAKER) 3.85 M/ L 4.63-6.08 L (test code = 761) HEMOGLOBIN (BEAKER) (test code = 11.2 GM/DL 13.7-17.5 L 410) HEMATOCRIT (BEAKER) (test code = 35.4 % 40.1-51.0 L 411) MEAN CORPUSCULAR VOLUME (BEAKER) 91.9 fL 79.0-92.2 (test code = 753) MEAN CORPUSCULAR HEMOGLOBIN 29.1 pg 25.7-32.2 (BEAKER) (test code = 751) MEAN CORPUSCULAR HEMOGLOBIN CONC 31.6 GM/DL 32.3-36.5 L (BEAKER) (test code = 752) RED CELL DISTRIBUTION WIDTH 13.8 % 11.6-14.4 (BEAKER) (test code = 412) PLATELET COUNT (BEAKER) (test 176 K/CU MM 150-450 code = 756) MEAN PLATELET VOLUME (BEAKER) 9.6 fL 9.4-12.4 (test code = 754) NUCLEATED RED BLOOD CELLS 0 /100 WBC 0-0 (BEAKER) (test code = 413) NEUTROPHILS RELATIVE PERCENT 81 % (BEAKER) (test code = 429) LYMPHOCYTES RELATIVE PERCENT 6 % (BEAKER) (test code = 430) MONOCYTES RELATIVE PERCENT 9 % (BEAKER) (test code = 431) EOSINOPHILS RELATIVE PERCENT 4 % (BEAKER) (test code = 432) BASOPHILS RELATIVE PERCENT 0 % (BEAKER) (test code = 437) NEUTROPHILS ABSOLUTE COUNT 11.28 K/ L 1.78-5.38 H (BEAKER) (test code = 670) LYMPHOCYTES ABSOLUTE COUNT 0.82 K/ L 1.32-3.57 L (BEAKER) (test code = 414) MONOCYTES ABSOLUTE COUNT (BEAKER) 1.19 K/ L 0.30-0.82 H (test code = 415) EOSINOPHILS ABSOLUTE COUNT 0.53 K/ L 0.04-0.54 (BEAKER) (test code = 416) BASOPHILS ABSOLUTE COUNT (BEAKER) 0.05 K/ L 0.01-0.08 (test code = 417) IMMATURE GRANULOCYTES-RELATIVE 1 % 0-1 PERCENT (BEAKER) (test code = 2801) Histoplasma antigen, [id number] 22:30:00 Test Item Value Reference Range Interpretation Comments Histoplasma <0.2 ng/mL REFERENCE RANGE : <0.2 Antigen (test ng/mL Histopla [facility] code = 8681207) galactomanna n is frequently dete ctedin urine from carey ents with disseminatedhis toplas mosis. However, a negative result doesnot exclude a diagnosis of histoplasmosis. Manypatients wi th acute pulmonary disease or chroniccavitary disease do not exhibit antigenuria.Spe cimens from patients w ith other endemicfu ngal infections, suc h as blastomycosis,p aracoc cidioidomycosis , or candidiasis, ma y alsobe positive in this assay. Thi s test should be used in conjunction wit h otherdiagnostic s tests, includin g culture, molecularassays , and histology in andria edmond a final diagnosis . FAIZA (test code = Performing Lab FAIZA) *[employer] [facility] [address] [place] [address] Nivia Rodriguez MD [facility]Aspergillus galactomannan [id number] 20:01:00 Test Item Value Reference Range Interpretation Comments Aspergillus Index <0.50 Value (test code = 2645) Aspergillus NOT DETECTED REFERENCE RANGE : Antigen (test code <0.50, NO T = 45010-5) DETECTED A negative result does not exclud e invasiveaspergi llo sis. Follow-up testing may be indicatedfor high-risk patients. FAIZA (test code = Performing Lab FAIZA) *[employer] [facility] [address] [place] [address] Nivia Rodriguez MD [facility] [id number] 19:01:00 Test Item Value Reference Range Interpretation Comments Cytology (test code = See Separate Report 2629) [facility] [id number] 19:01:00 Test Item Value Reference Range Interpretation Comments CYTOLOGY RESULT POINTER See Separate Report (BEAKER) (test code = 2629) EBUS FNA [id number] 19:01:00 Test Item Value Reference Range Interpretation Comments CYTOLOGY RESULT POINTER See Separate Report (BEAKER) (test code = 2629) EBUS FNA [id number] 19:01:00 Test Item Value Reference Range Interpretation Comments CYTOLOGY RESULT POINTER See Separate Report (BEAKER) (test code = 2629) Glucose Pleural [id number] 15:16:00 Test Item Value Reference Range Interpretation Comments Glucose, 131 mg/dL Reference rang e Pleural Fluid approximates t hat (test code = found in serum. 2346-5) FAIZA (test code Performing Lab = FAIZA) [facility]Z [facility] [address] [place] [address] Clarissa Zavala MD, PhD, SHELLIE [facility] HospitalLactate Dehydrogenase (LD), Pleural [id number] 15:16:00 Test Item Value Reference Range Interpretation Comments Lactate 102 U/L See Note: Reference Dehydrogenase (LD), Range:TR ANSUDATE Pleural Fluid (test : <113E XUDATE: code = 17116-1) >113 FAIZA (test code = Performing Lab FAIZA) EZ [facility] [address] [place] [address] Clarissa Zavala MD, PhD, SHELLIE [facility] [id number] 14:44:00 Test Item Value Reference Range Interpretation Comments Scan Result (test code = 5488151) <31 [facility] [id number] 14:44:00 Test Item Value Reference Range Interpretation Comments SCAN RESULT (test code = 4212227) <31 [id number] 10:12:00 Test Item Value Reference Range Interpretation Comments MAGNESIUM (BEAKER) (test code = 2.4 mg/dL 1.6-2.6 627) Software Controls Engineer ID - DONNA MCINTOSH, [id number] 08:53:00 Test Item Value Reference Range Interpretation Comments ABO Grouping (test code = 2588) A Rh Factor (test code = 2589) POS [facility]COMPRE[facility]ENSIVE METABOLIC [id number] 06:03:00 Test Item Value Reference Range Interpretation Comments TOTAL PROTEIN 5.1 gm/dL 6.0-8.3 L (BEAKER) (test code = 770) ALBUMIN (BEAKER) 2.6 g/dL 3.5-5.0 L (test code = 1145) ALKALINE PHOSPHATASE 60 U/L 40-150 (BEAKER) (test code = 346) BILIRUBIN TOTAL 0.9 mg/dL 0.2-1.2 (BEAKER) (test code = 377) SODIUM (BEAKER) (test 139 meq/L 136-145 code = 381) POTASSIUM (BEAKER) 3.4 meq/L 3.5-5.1 L (test code = 379) CHLORIDE (BEAKER) 104 meq/L 98-107 (test code = 382) CO2 (BEAKER) (test 28 meq/L 22-29 code = 355) BLOOD UREA NITROGEN 27 mg/dL 7-21 H (BEAKER) (test code = 354) CREATININE (BEAKER) 0.96 mg/dL 0.57-1.25 (test code = 358) GLUCOSE RANDOM 106 mg/dL 70-105 H (BEAKER) (test code = 652) CALCIUM (BEAKER) 8.1 mg/dL 8.4-10.2 L (test code = 697) AST (SGOT) (BEAKER) 15 U/L 5-34 (test code = 353) ALT (SGPT) (BEAKER) 15 U/L 6-55 (test code = 347) EGFR (BEAKER) (test 74 mL/min/1.73 ESTIMA MANDO GFR IS code = 1092) sq m NOT ACCURATE CREATININE CLEARANCE IN PREDICTING GLOMERULAR FILTRATION RATE . ESTIMATED GFR I S NOT APPLICABLE FOR DIALYSIS PATIEN TS. Software Controls Engineer ID - PIAYA LCBC W/PLT COUNT & AUTO [id number] 05:59:00 Test Item Value Reference Range Interpretation Comments WHITE BLOOD CELL COUNT (BEAKER) 13.8 K/ L 3.5-10.5 H (test code = 775) RED BLOOD CELL COUNT (BEAKER) 3.97 M/ L 4.63-6.08 L (test code = 761) HEMOGLOBIN (BEAKER) (test code = 11.8 GM/DL 13.7-17.5 L 410) HEMATOCRIT (BEAKER) (test code = 36.2 % 40.1-51.0 L 411) MEAN CORPUSCULAR VOLUME (BEAKER) 91.2 fL 79.0-92.2 (test code = 753) MEAN CORPUSCULAR HEMOGLOBIN 29.7 pg 25.7-32.2 (BEAKER) (test code = 751) MEAN CORPUSCULAR HEMOGLOBIN CONC 32.6 GM/DL 32.3-36.5 (BEAKER) (test code = 752) RED CELL DISTRIBUTION WIDTH 13.9 % 11.6-14.4 (BEAKER) (test code = 412) PLATELET COUNT (BEAKER) (test 175 K/CU MM 150-450 code = 756) MEAN PLATELET VOLUME (BEAKER) 9.6 fL 9.4-12.4 (test code = 754) NUCLEATED RED BLOOD CELLS 0 /100 WBC 0-0 (BEAKER) (test code = 413) NEUTROPHILS RELATIVE PERCENT 83 % (BEAKER) (test code = 429) LYMPHOCYTES RELATIVE PERCENT 6 % (BEAKER) (test code = 430) MONOCYTES RELATIVE PERCENT 8 % (BEAKER) (test code = 431) EOSINOPHILS RELATIVE PERCENT 2 % (BEAKER) (test code = 432) BASOPHILS RELATIVE PERCENT 0 % (BEAKER) (test code = 437) NEUTROPHILS ABSOLUTE COUNT 11.51 K/ L 1.78-5.38 H (BEAKER) (test code = 670) LYMPHOCYTES ABSOLUTE COUNT 0.76 K/ L 1.32-3.57 L (BEAKER) (test code = 414) MONOCYTES ABSOLUTE COUNT (BEAKER) 1.12 K/ L 0.30-0.82 H (test code = 415) EOSINOPHILS ABSOLUTE COUNT 0.33 K/ L 0.04-0.54 (BEAKER) (test code = 416) BASOPHILS ABSOLUTE COUNT (BEAKER) 0.05 K/ L 0.01-0.08 (test code = 417) IMMATURE GRANULOCYTES-RELATIVE 1 % 0-1 PERCENT (BEAKER) (test code = 2801) [id number] 05:52:00 Test Item Value Reference Range Interpretation Comments PARTIAL THROMBOPLASTIN TIME 35.2 seconds 22.5-36.0 (BEAKER) (test code = 760) PROTHROMBIN TIME/[id number] 05:51:00 Test Item Value Reference Range Interpretation Comments PROTIME (BEAKER) (test code = 14.7 seconds 11.9-14.2 H 759) INR (BEAKER) (test code = 370) 1.2 <=5.9 Effective 11/01/2018: PT Reference Range ChangeNew: 11.9-14.2 Previous: 11.7- 14.7RECOMMENDED COUMADIN/WARFARIN INR THERAPY RANGESSTANDARD DOSE: 2.0-3.0 Includes: PROPHYLAXIS for venous thrombosis, systemic embolization; TREATMENT for venous thrombosis and/or pulmonary embolus.HIGH RISK: Target INR is2.5-3.5 for patients wiht mechanical heart valves.CBC (hemogram only)2019-11-07 05:38:00 Test Item Value Reference Range Interpretation Comments WBC (test code = 6690-2) 13.8 3.5- 10.5 K/L H RBC (test code = 789-8) 3.97 4.63- 6.08 M/L L MCHC (test code = 786-4) 32.6 32.3- 36.5 GM/DL L Hematocrit (test code = 4544-3) 36.2 % 40.1-51 L MCV (test code = 787-2) 91.2 fL 79-92.2 MCH (test code = 785-6) 29.7 pg 25.7-32.2 RDW (test code = 788-0) 13.9 % 11.6-14.4 Platelets (test code = 777-3) 175 150- 450 K/CU MM MPV (test code = 15223-0) 9.6 fL 9.4-12.4 nRBC (test code = 413) 0 0- 0 /100 WBC Lab Interpretation (test code = Abnormal 33950-5) [facility]2019-[facility]-07 05:38:00 Test Item Value Reference Range Interpretation Comments WHITE BLOOD CELL COUNT (BEAKER) 13.8 K/ L 3.5-10.5 H (test code = 775) RED BLOOD CELL COUNT (BEAKER) 3.97 M/ L 4.63-6.08 L (test code = 761) HEMOGLOBIN (BEAKER) (test code = 11.8 GM/DL 13.7-17.5 L 410) HEMATOCRIT (BEAKER) (test code = 36.2 % 40.1-51.0 L 411) MEAN CORPUSCULAR VOLUME (BEAKER) 91.2 fL 79.0-92.2 (test code = 753) MEAN CORPUSCULAR HEMOGLOBIN 29.7 pg 25.7-32.2 (BEAKER) (test code = 751) MEAN CORPUSCULAR HEMOGLOBIN CONC 32.6 GM/DL 32.3-36.5 (BEAKER) (test code = 752) RED CELL DISTRIBUTION WIDTH 13.9 % 11.6-14.4 (BEAKER) (test code = 412) PLATELET COUNT (BEAKER) (test 175 K/CU MM 150-450 code = 756) MEAN PLATELET VOLUME (BEAKER) 9.6 fL 9.4-12.4 (test code = 754) NUCLEATED RED BLOOD CELLS 0 /100 WBC 0-0 (BEAKER) (test code = 413) RAD, CHEST, 1 VIEW, NON [id number] 17:50:00Reason for exam:->PICCShould this be performed at the bedside?->YesFINAL REPORT TECHNIQUE: Frontal chest radiograph dated 11/06/2019. CLINICAL HISTORY: PICC COMPARISON STUDY: Chest radiograph performed earlier the same day Impression:There has been interval placement of a right-sided PICC with the tip in the region of the superior vena cava/right atrial junction. Stable pleural and parenchymal opacities. No pneumothorax. Cardiomediastinal silhouette is stable in size. Bones are osteopenic. Degenerative changes are seen in the spine. Signed: Chris Ramos MDReport Verified Date/Time: 11/06/2019 17:50:04 Reading Location: [address] Radiology Reading Room CT, CHEST, WITHOUT [id number] 17:38:00FINAL REPORT CT of the Chest dated 11/06/2019 COMPARISON: November 03, 2019 CLINICAL INFORMATION: SOB, pulmonary edema Comment: Axial images of the chest were obtained from thoracic inlet to the upper abdomen without intravenous contrast. This exam was performed according to our departmental dose-optimization program, which includes automated exposure control, adjustment of the mA and/or kV according to patient size and/or use of interactive reconstruction technique. Heart is enlarged. Vascular calcification is seen in the thoracic aorta and coronary arteries. Great vessels are unremarkable. Nonspecific lymph nodes are seen in the paratracheal, precarinal, subcarinal, and AP window mediastinum. The largest lymph node measures approximately 9 mm. Trachea and mainstem bronchi are patent. There is moderate left pleural effusion and large right pleural effusion. Compressive atelectasis is seen in both lower lobes. Consolidation is seen in the right lower lobe. A 4.3 x 5.8 cm hypodense focus is seen in the right lower lobe suggestive of necrosis or abscess. Airspace disease is also seen in the right mid lobe suggestive of pneumonia. Groundglass pulmonary parenchymal disease is seen in both upper lobes. Visualized upper abdomen demonstrates no focal lesion. Impression: 1. Bilateral pleural effusion with bibasilar compressive atelectasis.2. Consolidation in the right lower lobe with a hypodense focus suggestive of abscess or necrosis.3. Interval development of right mid lobe pneumonia.4. Nonspecific groundglass pulmonary disease in the upper lobes. Signed: Mayela Green MDReport Verified Date/Time: 11/06/2019 17:38:38 Reading Location: [facility] C013Y CT Body Reading Room CT chest without IV contrast 2019-11-06 17:38:00Interface, External Ris In - 11/06/2019 5:[address] of the Chest dated 11/06/2019 COMPARISON: November 03, 2019 CLINICAL INFORMATION: SOB, pulmonary edema Comment: Axial images of the chest were obtained from thoracic inlet to the upper abdomen without intravenous contrast. This exam was performed according to our departmental dose-optimization program, which includes automated exposure control, adjustment of the mA and/or kV according to patient size and/or useof interactive reconstruction technique. Heart is enlarged. Vascular calcification is seen in the thoracic aorta and coronary arteries. Great vessels are unremarkable. Nonspecific lymph nodes are seen in the paratracheal, precarinal, subcarinal, and AP window mediastinum. The largest lymph node measures approximately 9 mm. Trachea and mainstem bronchi are patent. There is moderate left pleural effusi on and large right pleural effusion. Compressive atelectasis is seen in both lower lobes. Consolidation is seen in the right lower lobe. A 4.3 x 5.8 cm hypodense focus is seen in the right lower lobe suggestive of necrosis or abscess. Airspace disease is also seen in the right mid lobe suggestive of pn eumonia. Groundglass pulmonary parenchymal disease is seen in both upper lobes. Visualized upper abdomen demonstrates no focal lesion. Impression: 1. Bilateral pleural effusion with bibasilar compressive atelectasis.2. Consolidation in the right lower lobe with a hypodense focus suggestive of abscess or necrosis.3. Interval development of right mid lobe pneumonia.4. Nonspecific groundglass pulmonary disease in the upper lobes. Signed: Mayela Green Verified Date/Time: 11/06/2019 17:38:38 Reading Location: [facility] B1 C013Y CT Body Reading Room Electronically signed by: MAYELA GREEN M.D. on11/06/2019 05:38 [facility] [id number] 17:27:00 Test Item Value Reference Range Interpretation Comments POC-GLUCOSE METER 109 mg/dL 70-110 : TESTED A T [facility] 67[address] (FOSTER) (test code = ARIELADAVIDE [place]ena[place], 1538) [address]: Software Controls Engineer/Techni sophie ID = [id number] for BE LL, BEAULA Pulmonary Funct Lab [id number] 14:45:00Tosin Chavez, ICE SKATING INSTRUCTOR, FAMILY INDEPENDENCE CASE MANAGER 11/06/2019 3:21 [facility] PFT CHARTING REPORT Infection Control/Hand Hygiene procedures followed throughout the encounter with patient: YesPatient Identification Method: Patient name verified on armband, and Medical record on armband, Is the order complete?: Yes Account ID#: [id number] Name: Arthur Nunez Birthdate: [birth year] Age: 89 y.o. Sex: male Admission Date: 11/02/2019 PatientStatus: Inpatient Reasons/Symptom for having the Test?: the need of post-op transplant evaluation Type of study/treatment ordered by physician: Spirometry Lab Results Component Value Date HGB 13.4 (L) 11/06/2019 Ranges: Adult Male 13 - 16.8 g/dl Adult Female 12 - 15 g/dl 6 Minute Walk (read only) 11/06/2019 11/06/2019 11/06/2019 Pulse 87 117 120 SpO2 97 96 97 Study Date: 11/06/19 Study Time: 1445 ASSESSMENT History & Physical Mode of Arrival: Testing was performed at patient bedside Pulse: 120 Resp: 19 SPO2: 97 % on RA Pain Assessment Pain:None TESTING/THERAPEUTICS Medications ordered or required for procedure: N/A PT EDUCATION/INSTRUCTIONS Barriers to learning: No known barriers to learning. Learning need identified: Yes, Patient/Family/Guradian was informed of the ordered study by the physician Barriers to performing study or treatment: Patient has no known disability to perform the study or treatment. DISCHARGE The study was completed in accordance with the physician's order and patient released from the lab without adverse outcome.[facility]2020-[facility] 13:58:00 Test Item Value Reference Range Interpretation Comments MAGNESIUM (BEAKER) (test code = 2.3 mg/dL 1.6-2.6 627) Software Controls Engineer ID - PIAYA LBASIC METABOLIC [id number] 13:58:00 Test Item Value Reference Range Interpretation Comments SODIUM (BEAKER) 136 meq/L 136-145 (test code = 381) POTASSIUM (BEAKER) 3.7 meq/L 3.5-5.1 (test code = 379) CHLORIDE (BEAKER) 100 meq/L 98-107 (test code = 382) CO2 (BEAKER) (test 27 meq/L 22-29 code = 355) BLOOD UREA NITROGEN 26 mg/dL 7-21 H (BEAKER) (test code = 354) CREATININE (BEAKER) 0.95 mg/dL 0.57-1.25 (test code = 358) GLUCOSE RANDOM 130 mg/dL 70-105 H (BEAKER) (test code = 652) CALCIUM (BEAKER) 8.3 mg/dL 8.4-10.2 L (test code = 697) EGFR (BEAKER) (test 75 mL/min/1.73 ESTIMA MANDO GFR IS code = 1092) sq m NOT ACCURATE CREATININE CLEARANCE IN PREDICTING GLOMERULAR FILTRATION RATE . ESTIMATED GFR I S NOT APPLICABLE FOR DIALYSIS PATIEN TS. Software Controls Engineer ID - PIAYA LPOCT-GLUCOSE [id number] 11:51:00 Test Item Value Reference Range Interpretation Comments POC-GLUCOSE METER 159 mg/dL 70-110 H : Notified RN/MD: (DAVIDGUANAKO) (test code = TESTED AT [facility] 6720 3068) [facility], [address]: Software Controls Engineer/Techni sophie ID = [id number] for DEBORAH HENRIQUEZ Carotid doppler [id number] 10:23:48Ejection FractionSLEH ECHO HEARTLAB MKCKESSON CPACSRight Impression1. There is <50% diameter reduction (approximately 32% by 2-D measurement)in the internal carotid artery with a peak velocity of 82/24 cm/sec andheterogeneous plaque.2. There is non-occluding plaque in the external carotid artery.3.There is non-occluding plaque in the common carotid artery.4. The vertebral artery flow is antegradeand normal.5. The subclavian artery is within normal limits where visualized.Left Impression1. Thereis <50% diameter reduction (approximately 24% by 2-D measurement)in the internal carotid artery with a peak velocity of 50/13 cm/sec andheterogeneous plaque.2. There is non-occluding plaque in the external carotid artery.3. There is non-occluding plaque in the common carotid artery.4. The vertebralartery flow is antegrade and normal.5. The subclavian artery is within normal limits where visualized. Conclusions Summary Carotid duplex scanning and color flow imaging were performed bilaterally. The arteries were adequately visualized. The bilateral internal carotid arteries had <50% hemodynamically insignificant stenosis (approximately 32% by 2-D measurement on the right, approximately 24% b y 2-D measurement on the left) with heterogeneous plaque. The vertebral artery flow was antegrade and normal bilaterally. Signature Velocities are measured in cm/s ; Diameters aremeasured in cm Carotid Right Measurements+ +----+----+-----+ + ---+ +!Location !PSV !EDV !Angle!%Stenosis 2D!%Stenosis Doppler!Tortuosity !+-------- -------+----+----+-----+ + + +!Prox CCA !62.7!19.3!60 ! ! ! !+ +----+----+-----+ + ----+ +!Dist CCA !80.8!26.7!60 ! ! ! !+------- --------+----+----+-----+ + + +!Prox ICA !82 !24.2!60 !32% !<50% ! !+ +----+----+-----+ +--------- --------+ +!Dist ICA !77.7!21.1!60 ! ! ! !+--- +----+----+-----+ + + +!Prox ECA !85.7!13.7!60 ! ! ! !+ +----+----+-----+ +-------- ---------+ +!Vertebral !21.3!8.28!60 ! ! ! !+-- +----+----+-----+ + + +!Prox Subclavian!64 ! !60 ! ! ! !+ +----+----+-----+ + + + - Additional Measurements:ICAPSV/CCAPSV 1.01.ICAEDV/CCAEDV 1.25. Carotid Left Measurements+ +----+----+-----+ + +---- -------+!Location !PSV !EDV !Angle!%Stenosis 2D!%Stenosis Doppler!Tortuosity !+ +----+----+-----+-- + + +!Prox CCA !89.5!12.4!60 ! ! ! !+ +----+----+-----+ + + +!Di st CCA !66.5!14.3!60 ! ! ! !+ +----+----+-----+- + + +!Prox ICA !50.9!13.7!60 !24% !<50% ! !+ +----+----+-----+ + + +!Di st ICA !39.3!10.8!44 ! ! ! !+ +----+----+--- --+ + + +!Prox ECA !114 !13 !60 ! ! ! !+ +----+----+-----+ + + +!Ve rtebral !21.1!4.14!60 ! ! ! !+ +----+----+-- ---+ + + +!Prox Subclavian!63 ! !60 ! ! ! !+ +----+----+-----+ + + +- Additional Measurements:ICAPSV/CCAPSV 0.77.ICAEDV/CCAEDV 1.1. Interface, External Ris In - 11/06/2019 10:23 AM CDTPV LAB - Carotid Duplex Study Demographics Patient Name ARTHUR NUNEZ Date of Study 11/05/2019 Age 89 Visit Number [id number] Gender Male Accession Number [id number] Date of 1930 Referring Gabriel Streeter, Room Number 6210 Physician Check Weigher Philipp Martinez Interpreting Reshma Bal [facility] Physician ProcedureType of Study: Cerebral: Carotid, CAROTID DOPPLER, BILATERAL. In dications for Study:TAVR workup .Patient Status:Routine.Study Location:Portable.Technical Quality:Adequate visualization.Risk FactorsHistory of Disease+ ----+ +--------+!Diagnosis !Date !Comments! + + +--------+!His tory/Risk Factors: !11/03/2019!CHF !! ! ! !! ! !SOB !+ + +--------+Imp ressionsRight Impression1. There is <50% diameter reduction (approximately 32% by 2-D measurement)in the internal carotid artery with a peak velocity of 82/24 cm/sec andheterogeneous plaque.2. There is non-occluding plaque in the external carotid artery.3. There is non-occluding plaque in the common carotid artery.4. The vertebral artery flow is antegrade and normal.5. The subclavian artery is within normal limits where visualized.Left Impression1. There is <50% diameter reduction (approximately 24% by 2-D measurement)in the internal carotid artery with a peak velocity of 50/13 cm/sec andheterogeneous plaque.2. There is non-occluding plaque in the external carotid artery.3. There is non- occluding plaque in the common carotid artery.4. The vertebral artery flow is antegrade and normal.5. The subclavian artery iswithin normal limits where visualized. Conclusions Summary Carotid [...] in cm/s ; Diameters are measured in cmCarotid Right Measurements+ +----+--- -+-----+ + + +!Location !PSV !EDV !Angle!%Stenosis 2D!%Stenosis Doppler!Tortuosity !+ +----+----+-----+ + + +!Prox CCA !62.7!19.3!60 ! ! ! !+ +----+-- --+-----+ + + +!Dist CCA !80.8!26.7!60 ! ! ! !+ +----+----+-----+ + + +!Prox ICA !82 !24.2!60 !32% !<50% ! !+ +--- -+----+-----+ + + +!Dist ICA !77.7!21.1!60 !! ! !+ +----+----+-----+ + +------ -----+!Prox ECA !85.7!13.7!60 ! ! ! !+ +-- --+----+-----+ + + +!Vertebral !21.3!8.28!60 ! ! ! !+ +----+----+-----+ + +----- ------+!Prox Subclavian!64 ! !60 ! ! ! !+ +----+----+-----+ + + + - Additional Measurements:ICAPSV/CCAPSV 1.01.ICAEDV/CCAEDV 1.25.Carotid Left Measurements+ +----+----+-----+ +------- + +!Location !PSV !EDV !Angle!%Stenosis 2D!%Stenosis Doppler!Tortuosity !+- +----+----+-----+ + + +!Prox CCA !89.5!12.4!60 ! ! ! !+ +----+----+-----+ +------ + +!Dist CCA !66.5!14.3!60 ! ! ! !+ +----+----+-----+ + + +!Prox ICA !50.9!13.7!60 !24% !<50% ! !+ +----+----+-----+ +-- + +!Dist ICA !39.3!10.8!44 ! ! ! !+ +----+----+-----+ + + +!Pr ox ECA !114 !13 !60 ! ! ! !+ +----+----+-----+ +- + +!Vertebral !21.1!4.14!60 ! ! ! !+ +----+----+-----+ + + +!Pr ox Subclavian!63! !60 ! ! ! !+ +----+----+-----+ + + + - Additional Measurements:ICAPSV/CCAPSV 0.77.ICAEDV/CCAEDV 1.1.[facility] HospitalBody fluid culture + gram [id number] 08:41:00 Test Item Value Reference Range Interpretation Comments Result (test code = 6463-4) No growth Gram Stain Result (test No organisms seen code = 1123) [facility] HospitalBODY FLUID C[facility] + GRAM [id number] 08:41:00 Test Item Value Reference Range Interpretation Comments CULTURE (BEAKER) (test code No growth = 1095) GRAM STAIN RESULT (BEAKER) 4+ WBCs (test code = 1123) GRAM STAIN RESULT (BEAKER) No organisms seen (test code = 28499) POCT-GLUCOSE [id number] 07:41:00 Test Item Value Reference Range Interpretation Comments POC-GLUCOSE METER 104 mg/dL 70-110 : TESTED A T [facility] [address] (BEAKER) (test code = [place], 1538) [address]: Software Controls Engineer/Techni sophie ID = [id number] for BE LL, BEAULA [id number] 04:43:00 Test Item Value Reference Range Interpretation Comments MAGNESIUM (BEAKER) (test code = 2.3 mg/dL 1.6-2.6 627) Software Controls Engineer ID - PIAYA LBASIC METABOLIC [id number] 04:43:00 Test Item Value Reference Range Interpretation Comments SODIUM (BEAKER) 137 meq/L 136-145 (test code = 381) POTASSIUM (BEAKER) 4.0 meq/L 3.5-5.1 (test code = 379) CHLORIDE (BEAKER) 101 meq/L 98-107 (test code = 382) CO2 (BEAKER) (test 29 meq/L 22-29 code = 355) BLOOD UREA NITROGEN 25 mg/dL 7-21 H (BEAKER) (test code = 354) CREATININE (BEAKER) 0.95 mg/dL 0.57-1.25 (test code = 358) GLUCOSE RANDOM 114 mg/dL 70-105 H (BEAKER) (test code = 652) CALCIUM (BEAKER) 8.6 mg/dL 8.4-10.2 (test code = 697) EGFR (BEAKER) (test 75 mL/min/1.73 ESTIMA MANDO GFR IS code = 1092) sq m NOT ACCURATE CREATININE CLEARANCE IN PREDICTING GLOMERULAR FILTRATION RATE . ESTIMATED GFR I S NOT APPLICABLE FOR DIALYSIS PATIEN TS. Software Controls Engineer ID - PIAYA LRAD, CHEST, 1 VIEW, NON [id number] 04:25:00Reason for exam:->pleural effusion. s/p thoraShould this be performed at the bedside?->YesFINAL REPORT Chest one view. Clinical history: pleural effusion. s/p thoracentesis Comparison: Chest radiograph 11/04/2019. Technique: A single frontal view of the chest was obtained. Findings: The cardiomediastinal contours are stable. There are persistent diffuse bilateral airspace and interstitial opacities. There is a small right pleural effusion, mildly decreased. There is no pneumothorax. Signed: Mario Billseport Verified Date/Time: 11/06/2019 04:25:16 Vancomycin level, [id number] 04:14:00 Test Item Value Reference Range Interpretation Comments Vancomycin Tr (test code = 23.1 ug/mL 10-20 H 4092-3) FAIZA (test code = FAIZA) Software Controls Engineer ID - PEACE L Lab Interpretation (test Abnormal code = 64878-3) [facility] HospitalVANCOMYCIN LEVEL, [id number] 04:14:00 Test Item Value Reference Range Interpretation Comments VANCOMYCIN TROUGH (BEAKER) (test 23.1 ug/mL 10.0-20.0 H code = 522) Software Controls Engineer ID - PEACE LCBC (HEMOGRAM ONLY)2019-11-06 03:59:00 Test Item Value Reference Range Interpretation Comments WHITE BLOOD CELL COUNT (BEAKER) 15.5 K/ L 3.5-10.5 H (test code = 775) RED BLOOD CELL COUNT (BEAKER) 4.58 M/ L 4.63-6.08 L (test code = 761) HEMOGLOBIN (BEAKER) (test code = 13.4 GM/DL 13.7-17.5 L 410) HEMATOCRIT (BEAKER) (test code = 41.2 % 40.1-51.0 411) MEAN CORPUSCULAR VOLUME (BEAKER) 90.0 fL 79.0-92.2 (test code = 753) MEAN CORPUSCULAR HEMOGLOBIN 29.3 pg 25.7-32.2 (BEAKER) (test code = 751) MEAN CORPUSCULAR HEMOGLOBIN CONC 32.5 GM/DL 32.3-36.5 (BEAKER) (test code = 752) RED CELL DISTRIBUTION WIDTH 13.8 % 11.6-14.4 (BEAKER) (test code = 412) PLATELET COUNT (BEAKER) (test 231 K/CU MM 150-450 code = 756) MEAN PLATELET VOLUME (BEAKER) 9.8 fL 9.4-12.4 (test code = 754) NUCLEATED RED BLOOD CELLS 0 /100 WBC 0-0 (BEAKER) (test code = 413) CT, BRAIN, WITHOUT [id number] 23:24:00FINAL REPORT EXAM: CT head without contrast. CLINICAL HISTORY: Abnormal auditory perceptions. COMPARISON: None. TECHNIQUE: CT images of the head were obtained without intravenous contrast. This exam was performed according to our departmental dose optimization program which includes automated exposure control, adjustment of the mA and/or kV according to patient's size and/or use of iterative reconstructive technique. FINDINGS:There is generalized parenchymal atrophy. There are moderate white matter microvascular ischemic changes. There is a small area of encephalomalacia inthe right parietal lobe which may a chronic infarct. There is intracranial calcific atherosclerosis.There is no acute intracranial hemorrhage, extra-axial fluid collection, mass effect, herniation, hydrocephalus or large demarcated acute territorial infarct. The basal cisterns are patent. The visualized orbits are normal. The visualized paranasal sinuses and tympanomastoid cavities are clear. The skull base and calvarium are intact. IMPRESSION: Moderate white matter microvascular ischemic changes. Chronic right parietal lobe infarct. No CT evidence of an acute intracranial process. MRI may be performed for further evaluation as clinically warranted. Signed: Mario Billsort Verified Date/Time: 11/05/2019 23:24:44 CT brain without IV [id number] 23:24:00Interface, External Ris In - 11/05/2019 11:26 PM CDTFINAL REPORT EXAM: CT head without contrast. CLINICAL HISTORY: Abnormal auditory perceptions. COMPARISON: None. TECHNIQUE: CTimages of the head were obtained without intravenous contrast. This exam was performed according toour departmental dose optimization program which includes automated exposure control, adjustment of t he mA and/or kV according to patient's size and/or use of iterative reconstructive technique. FINDINGS:There is generalized parenchymal atrophy. There are moderate white matter microvascular ischemic changes. There is a small area of encephalomalacia in the right parietal lobe which may a chronic infar ct. There is intracranial calcific atherosclerosis.There is no acute intracranial hemorrhage, extra-axial fluid collection, mass effect, herniation, hydrocephalus or large demarcated acute territorial infarct. The basal cisterns are patent. The visualized orbits are normal. The visualized paranasal sinuses and tympanomastoid cavities are clear. The skull base and calvarium are intact. IMPRESSION: Moderate white matter microvascular ischemic changes. Chronic right parietal lobe infarct. No CT evidence of an acute intracranial process. MRI may be performed for further evaluation as clinically warranted. Signed: Mario Billsort Verified Date/Time: 11/05/2019 23:24:44 [facility] CenterPO[facility] [id number] 18:35:00 Test Item Value Reference Range Interpretation Comments POC-GLUCOSE METER 103 mg/dL 70-110 : TESTED A T [facility] [address] ([place]) (test code = CRISTA Estevez [facility], 1538) [address]: Software Controls Engineer/Techni sophie ID = [id number] for MATT NO [id number] 13:42:00Medical Cytology Report Case: [id number] Authorizing Provider: Gabriel Streeter MD Collected: 11/03/2019 04:44 PM Ordering Location: [place] [address] CCU Received: 11/05/2019 09:25 AM Pathologist: Lala Jimenez MD Specimen: Pl eural, Right PLEURAL, RIGHT, FLUID (CYTOSPINS): - NEGATIVE FOR MALIGNANCY - Reactive mesothelial cells present in a background of marked acute inflammation Signing Pathologist Direct Phone Line: [phone] signed by Lala Jimenez MD on 11/05/2019 at 1:42 [id number] pleural effusion; HTN, CVA, and aortic stenosis transferred from OSH with lower extremity swelling, weakness, and dyspnea with denial of fevers, cough, dysuria, or diarrhea. Hospital course identified depressed LV function consistent with CHF exacerbationPLEURAL, RIGHT, FLUIDReceived 1300 ml yellow fluid; prepared 4 cytospinsCollected: [id number]: [id number] [facility], Department of Pathology, [address] [place] [id number], [facility], [facility] of[facility]ology, [address] [place] [address], [facility] of Pathology, [address] [place] [id number], OWPY [id number] 12:51:00 Test Item Value Reference Range Interpretation Comments Result (test code = 6463-4) No [id number] 12:51:00 Test Item Value Reference Range Interpretation Comments CULTURE (BEAKER) (test code No MRSA isolated = 1095) [id number] 12:25:00 Test Item Value Reference Range Interpretation Comments MAGNESIUM (BEAKER) 2.5 mg/dL 1.6-2.6 Specimen slightly (test code = 627) hemolyzed Software Controls Engineer ID - NTPBASIC METABOLIC [id number] 12:25:00 Test Item Value Reference Range Interpretation Comments SODIUM (BEAKER) 137 meq/L 136-145 (test code = 381) POTASSIUM (BEAKER) 3.8 meq/L 3.5-5.1 Specimen slightly (test code = 379) hemolyzed CHLORIDE (BEAKER) 100 meq/L 98-107 (test code = 382) CO2 (BEAKER) (test 28 meq/L 22-29 code = 355) BLOOD UREA NITROGEN 22 mg/dL 7-21 H (BEAKER) (test code = 354) CREATININE (BEAKER) 0.93 mg/dL 0.57-1.25 Specimen slightly (test code = 358) hemolyzed GLUCOSE RANDOM 118 mg/dL 70-105 H (BEAKER) (test code = 652) CALCIUM (BEAKER) 8.1 mg/dL 8.4-10.2 L (test code = 697) EGFR (BEAKER) (test 77 mL/min/1.73 ESTIMA MANDO GFR IS code = 1092) sq m NOT ACCURATE CREATININE CLEARANCE IN PREDICTING GLOMERULAR FILTRATION RATE . ESTIMATED GFR I S NOT APPLICABLE FOR DIALYSIS PATIEN TS. Software Controls Engineer ID - NTPPOCT-GLUCOSE [id number] 11:48:00 Test Item Value Reference Range Interpretation Comments POC-GLUCOSE METER 108 mg/dL 70-110 : TESTED A T BSC 6720 (BEAKER) (test code = CRISTA Zenaida [place], 1538) [address]: Software Controls Engineer/Techni sophie ID = [id number] for NICK LEON CT, CTA [id number] 11:32:00Addendum BeginsREPORT STATUS:A I agree with the nonvascular findings as below:*Moderate sized left and large right pleural effusions.*There is a centrally nonenhancing area in the right lower lobe with surrounding hypoenhancement. This is either due to a necrotic pneumonia or necrotic mass which measures up to 8.6 cm.*There are several prominent and enlarged mediastinal lymph nodes which could be reactive or metastatic. The etiology of the right lower lobe hypoenhancing area.*There are interstitial and groundglass opacities of the both lungs which are indeterminate and could be due to infection. COVID pneumonia is in the differential. Per the electronic medical record, the COVID test was negative. If the patient has ongoing symptoms, an additional test should be considered .*Cholelithiasis without acute cholecystitis.*A right upper pole renal cyst measures 3.1 cm and has thick internal calcifications, Bosniak 2F. A follow-up CT of the abdomen with and without intravenouscontrast, renal mass protocol, is recommended in six months to document stability.*Non-rotation of the bowel.*The prostate is enlarged with several internal calcifications. There may have been a prior TURP.*There is hyperenhancement of a short segment of jejunum in the right upper quadrant from an indeterminate cause. Enteritis is possible. This could be due to inflammation. Close attention on futurefollow-up examinations is recommended. Signed: Russ Gilbert MDReport Verified Date/Time: 11/05/2019 11 :32:40 Reading Location: [address] Radiology Reading RoomAddendum EndsFINAL REPORT CT angiography of the thoracoabdominal aorta and pelvic arteries, 03-Nov-19 INDICATION: This is a 89 years old male, with a diagnosis of aortic stenosis, presents of preprocedure TAVR assessment. TECHNIQUE: Spiral acquisition before and during intravenous contrast administration using a Christian multidetector CT scanner. Images were obtained before and during the dynamic passage of intravenous contrast material. Multi- planar 3-D volume-rendering reconstruction was performed using an independent workstation interactively by the interpreting physician as well as the 3-D specialist for optimal visualisation of the thoracoabdominal aorta, the pelvic arteries as well as its proximal branches.Please refer to the contrast sheet scanned in the EPIC system for the amount and route of contrast given. This exam was performed according to our departmental dose-optimisation programme, which includes automated exposure control, adjustment of the mA and/or kV according to patient size and/or use ofiterative reconstruction technique. Dose modulation, iterative reconstruction, and/or weight based adjustment of the mA/kV was utilized to reduce the radiation dose to as low as reasonably achievable. F INDINGS: VASCULAR: Pericardial effusion is noted, located posterior to the right atrium. The central pulmonary arteries are normal in calibre. The cardiac chambers demonstrate normal atrioventricular and ventriculoarterial concordance, and systemic and pulmonary venous return. The left ventricle is normal in size. Even in mid diastole, a degree of left ventricular hypertrophy is identified concentric. Correlate with echocardiography. Left atrial enlargement is identified. Mitral annular calcification is identified in the posterior mitral valve annulus. Coronary artery origins are normal. Diffuse calcification identified in the LAD territory. Mild calcification seen in the LCx territory. Patienthas a diagnosis of aortic stenosis. The aortic valve is tricuspid. The aortic Agatston score is 6340. The aortic valve area is 82 mm2. The location of aortic valvular calcification can be seen in reformatted data set sent to PACS. Regarding the aorta, there is no calcification is seen in the aortic root/ascending thoracic aorta. The transverse arch and descending thoracic aorta has mild scattered calcification identified. The abdominal aorta has moderate circumferential calcification present with associated noncalcific atherosclerosis, and there is likely a degree of atherosclerotic ulceration pratibha ntified, for example at image 397, representing a spectrum of underlying atherosclerosis. No ectasiaor aneurysmal dilation is identified. There is no evidence of acute aortic pathology, specifically, there is no dissection, intramural hematoma, or contained rupture. The arch vessel branching patternis normal and the visualized arch vessels are widely patent proximally. The left subclavian artery, has noncalcific atherosclerosis identified at image 45, with minimum luminal diameter of 5.9 x 7.6 mmin diameter. At image 21, the minimum luminal diameter is approximately 6 to 7 mm. Minimal nonobstructive Consultation is seen at the takeoff of the right subclavian artery, at image 22, it measure 7 to 8 mm in diameter. There are single left and right renal arteries are patent with nonobstructive calcification seen at the origin of the left and the right renal arteries. The coeliac axis, SMA, and BRIT are widely patent. The common iliac, external iliac, common femoral, and the visualised superficial femoral arteries, bilaterally, are patent with no obstructive lesion identified. Scattered calcification is identified. See dimensions below for details. Dimensions that may be helpful for TAVR as follows: The aortic root/ascending thoracic aorta is essentially free of calcification. The major and minor aortic annulus diameter measures 28.1 and 24.4 mm, respectively. The aortic annulus perimeter measured 84 mm and the cross-sectional area measures 552 mm2. The aortic annulus diameter at the traditional LVOT and coronal LVOT measures 21.6 and 25.7 mm, respectively. For reference purpose, per RANDHAWA S3 brochure, recommendation are as follows: CT area between 273 to 345 mm2 (20 mm valve); 338 to 430 mm2 (23 mm valve); 430 to 546 mm2 (26 mm valve); 540 to 683 mm2 (29 mm valve). For reference purpose, per CoreValve Evolut R brochure, recommendation are as follows: CT perimeter between 56.5-62.8 mm(23 mm valve); 62.8-72.3 mm (26 mm valve); 72.3-81.7 mm (29 mm valve); and 81.7-94.2. mm (34 mm valve). For reference purpose, per [employer] Edge brochure, recommendation are as follows: 23mm valve is recommended for CT perimeter between 62.8-72.3 mm; diameter between 20- 23 mm; or area between 314-415.5 mm2. For 25mm valve, it is recommended for CT perimeter between 72.3-78.5 mm; diameter between 23-25 mm; or area between 415.5-490.9 mm2. For 27mm valve, it is recommended for CT perimeter between 78.5-84.8 mm; diameter between 25-27 mm; or area between 490.9-572.6 mm2. Agatston Score is 6340. The aortic valve area is 82 mm2. The distance between the take off of the RCA and the annulus (diastole): 13.0 mmThe distance between the take off of the LM and the annulus (diastole): 15.5 mm The sinus of Valsalva diameter, RCC (diastole): 34.0 mmThe sinus of Valsalva diameter, LCC (diastole): 37.5 mmThe sinus of Valsalva diameter, NCC (diastole): 35.7 mm The sinotubular junction measures, 28.6 x 32.4 mm. The aortic root angulation measures 45.5 degrees. The minimal and perpendicular abdominal aortic diameter measure 11.0 and 12.8 mm, respectively. There is no evidence of thoracoabdominal aortic aneurysm or stent placement present. The minimum and the perpendicular left common iliac artery measures 7.6 and 8.7 mm, respectively with yuxi-sd-tljflycf tortuosity and mild calcific atherosclerosis present. The minimum and the perpendicular left external iliac artery measures 8.0 and 8.2 mm, respectively with mild tortuosity and no calcific atherosclerosis present. The minimum and the perpendicular left femoral artery measures 7.0 and 7.4 mm, respectively with no tortuosity and minimal calcific atherosclerosis present. The minimum and the perpendicular right common iliac artery measures 6.5 and 8.6 mm, respectively with moderate tortuosity and mild calcific atherosclerosis present. The minimum and the perpendicular right external iliac artery measures 7.5 and 7.7 mm, respectively with moderate tortuosity and mild calcific atherosclerosis present. The minimum and the perpendicular right femoral artery measures 5.9 and 7.2 mm, respectively with mild tortuosity and mild calcific atherosclerosis present. NON-VASCULAR: The visualised thyroid gland is unremarkable. The chest wall and mediastinum appear normal. A number of lymph nodes are identified, likely reactive in nature, and some are calcified indicating prior granulomatous disease. In the lung windows, no endobronchial lesion isseen. Bibasal pleural effusions identified right greater than left, and at least moderate in nature in the right, with associated changes/consolidation identified. Pulmonary vasculature is prominent suggesting a degree of cardiac congestion especially in the setting of aortic stenosis. In addition, patchy groundglass opacities are seen in the anterior aspect of both upper lobes likely as a result ofunderlying cardiac congestion, though atypical infection cannot be excluded. Correlate clinically. Calcified nodule is seen for example in the left lower lobe at image 153 indicating prior granulomatous disease. Furthermore, in the left upper lobe, for example image 94, air space disease is identified. An addendum will be dictated thereafter. In the abdomen, the liver and spleen appears unremarkable. The liver edge is smooth. No abnormal enhancing structure is identified. Calcified granuloma is identified in the liver and the spleen. Gallstone is seen in the gallbladder with no wall thickening iden tified. The adrenal glands could be minimally hypoplastic though no nodule is seen. The pancreas appears unremarkable. Bowel is not well assessed by CT angiography as enteric contrast is not given. No obvious bowel dilation is identified. The prostate is prominent with calcification identified. The bladder is mildly distended. No free air or free fluid is identified in the abdomen and pelvis. No significant retroperitoneal adenopathy is identified. No acute renal pathology seen and no hydronephrosis or perirenal fluid collection is identified. Note, in the outer aspect of the upper pole of the right kidney, image 349, hypodensity is seen with coarse calcification identified. At image 315, it measures 3.0 x 1.5 cm with height of 2.8 cm. It is difficult to determine if any enhancement is present. An addendum will dictated thereafter, regarding optimal recommendation, likely include follow-up versus dedicated cross sectional imaging of the kidney. No acute bony pathology is seen. Mild anterolisthesis identified at L4/L5 level. CONCLUSIONS: 1. Patient has a diagnosis of aortic stenosis. The aortic valve is tricuspid. The aortic Agatston Score is over 6000, and aortic valve area is 82 mm2. Focal mitral annular calcification is identified anteriorly. No obvious calcification is seen in the aortic root/ascending thoracic aorta. Dimensions that may be helpful for TAVR as described above. Calcification is seen at the level of the noncoronary cusp, and also immediately inferior to the noncoronary cusps at the aortic annular level. See reformatted data set for details. 2. Coronary artery origins are normal and focal calcific lesion is identified in the LAD territory. A degree of concentric left ventricular hypertrophy is noted. 3. Bilateral pleural effusion right greater than left, at least moderate in nature in the right. Pulmonary vasculature is prominent suggesting underlying cardiac c ongestion. Patchy groundglass opacities are seen especially in the upper lobe, likely as a sequelae of congestion, however, atypical infection cannot be excluded. Finally, focal airspace disease is identified in the left upper lobe, for example at image 94. An addendum dictated thereafter. 4. Other findings as described above. 5. An addendum will be dictated regarding the non-vascular findings by the Digital Sales Representative Radiologist. Signed: Gaudencio Valencia MDReport Verified Date/Time: 11/04/2019 09:18:32Reading Location: [place] [address] CT Reading Room , CTA, [id number] 11:32:00Addendum BeginsREPORT STATUS:A I agree with the nonvascular findings as below:*Moderate sized left and large right pleural effusions.*There is a centrally nonenhancing area in the right lower lobe with surrounding hypoenhancement. This is either due to a necrotic pneumonia or necrotic mass which measures up to 8.6 cm.*There are several prominent and enlarged mediastinal lymph nodes which could be reactive or metastatic. The etiology of the right lower lobe hypoenhancing area.*There are interstitial and groundglass opacities of the both lungs which are indeterminate and could be due to infection. COVID pneumonia is in the differential. Per the electronic medical record, the COVID test was negative. If the patient has ongoing symptoms, an additional test should be considered .*Cholelithiasis without acute cholecystitis.*A right upper pole renal cyst measures 3.1 cm and has thick internal calcifications, Bosniak 2F. A follow-up CT of the abdomen with and without intravenouscontrast, renal mass protocol, is recommended in six months to document stability.*Non-rotation of the bowel.*The prostate is enlarged with several internal calcifications. There may have been a prior TURP.*There is hyperenhancement of a short segment of jejunum in the right upper quadrant from an indeterminate cause. Enteritis is possible. This could be due to inflammation. Close attention on futurefollow-up examinations is recommended. Signed: Russ Gilbert [facility] Verified Date/Time: 11/05/2019 11 :32:40 Reading Location: [address] Radiology Reading RoomAddendum EndsFINAL REPORT CT angiography of the thoracoabdominal aorta and pelvic arteries, 03-Nov-19 INDICATION: This is a 89 years old male, with a diagnosis of aortic stenosis, presents of preprocedure TAVR assessment. TECHNIQUE: Spiral acquisition before and during intravenous contrast administration using a Christian multidetector CT scanner. Images were obtained before and during the dynamic passage of intravenous contrast material. Multi- planar 3-D volume-rendering reconstruction was performed using an independent workstation interactively by the interpreting physician as well as the 3-D specialist for optimal visualisation of the thoracoabdominal aorta, the pelvic arteries as well as its proximal branches.Please refer to the contrast sheet scanned in the EPIC system for the amount and route of contrast given. This exam was performed according to our departmental dose-optimisation programme, which includes automated exposure control, adjustment of the mA and/or kV according to patient size and/or use ofiterative reconstruction technique. Dose modulation, iterative reconstruction, and/or weight based adjustment of the mA/kV was utilized to reduce the radiation dose to as low as reasonably achievable. F INDINGS: VASCULAR: Pericardial effusion is noted, located posterior to the right atrium. The central pulmonary arteries are normal in calibre. The cardiac chambers demonstrate normal atrioventricular and ventriculoarterial concordance, and systemic and pulmonary venous return. The left ventricle is normal in size. Even in mid diastole, a degree of left ventricular hypertrophy is identified concentric. Correlate with echocardiography. Left atrial enlargement is identified. Mitral annular calcification is identified in the posterior mitral valve annulus. Coronary artery origins are normal. Diffuse calcification identified in the LAD territory. Mild calcification seen in the LCx territory. Patienthas a diagnosis of aortic stenosis. The aortic valve is tricuspid. The aortic Agatston score is 6340. The aortic valve area is 82 mm2. The location of aortic valvular calcification can be seen in reformatted data set sent to PACS. Regarding the aorta, there is no calcification is seen in the aortic root/ascending thoracic aorta. The transverse arch and descending thoracic aorta has mild scattered calcification identified. The abdominal aorta has moderate circumferential calcification present with associated noncalcific atherosclerosis, and there is likely a degree of atherosclerotic ulceration pratibha ntified, for example at image 397, representing a spectrum of underlying atherosclerosis. No ectasiaor aneurysmal dilation is identified. There is no evidence of acute aortic pathology, specifically, there is no dissection, intramural hematoma, or contained rupture. The arch vessel branching patternis normal and the visualized arch vessels are widely patent proximally. The left subclavian artery, has noncalcific atherosclerosis identified at image 45, with minimum luminal diameter of 5.9 x 7.6 mmin diameter. At image 21, the minimum luminal diameter is approximately 6 to 7 mm. Minimal nonobstructive Consultation is seen at the takeoff of the right subclavian artery, at image 22, it measure 7 to 8 mm in diameter. There are single left and right renal arteries are patent with nonobstructive calcification seen at the origin of the left and the right renal arteries. The coeliac axis, SMA, and BRIT are widely patent. The common iliac, external iliac, common femoral, and the visualised superficial femoral arteries, bilaterally, are patent with no obstructive lesion identified. Scattered calcification is identified. See dimensions below for details. Dimensions that may be helpful for TAVR as follows: The aortic root/ascending thoracic aorta is essentially free of calcification. The major and minor aortic annulus diameter measures 28.1 and 24.4 mm, respectively. The aortic annulus perimeter measured 84 mm and the cross-sectional area measures 552 mm2. The aortic annulus diameter at the traditional LVOT and coronal LVOT measures 21.6 and 25.7 mm, respectively. For reference purpose, per RANDHAWA S3 brochure, recommendation are as follows: CT area between 273 to 345 mm2 (20 mm valve); 338 to 430 mm2 (23 mm valve); 430 to 546 mm2 (26 mm valve); 540 to 683 mm2 (29 mm valve). For reference purpose, per CoreValve Evolut R brochure, recommendation are as follows: CT perimeter between 56.5-62.8 mm(23 mm valve); 62.8-72.3 mm (26 mm valve); 72.3-81.7 mm (29 mm valve); and 81.7-94.2. mm (34 mm valve). For reference purpose, per [employer] Edge brochure, recommendation are as follows: 23mm valve is recommended for CT perimeter between 62.8-72.3 mm; diameter between 20- 23 mm; or area between 314-415.5 mm2. For 25mm valve, it is recommended for CT perimeter between 72.3-78.5 mm; diameter between 23-25 mm; or area between 415.5-490.9 mm2. For 27mm valve, it is recommended for CT perimeter between 78.5-84.8 mm; diameter between 25-27 mm; or area between 490.9-572.6 mm2. Agatston Score is 6340. The aortic valve area is 82 mm2. The distance between the take off of the RCA and the annulus (diastole): 13.0 mmThe distance between the take off of the LM and the annulus (diastole): 15.5 mm The sinus of Valsalva diameter, RCC (diastole): 34.0 mmThe sinus of Valsalva diameter, LCC (diastole): 37.5 mmThe sinus of Valsalva diameter, NCC (diastole): 35.7 mm The sinotubular junction measures, 28.6 x 32.4 mm. The aortic root angulation measures 45.5 degrees. The minimal and perpendicular abdominal aortic diameter measure 11.0 and 12.8 mm, respectively. There is no evidence of thoracoabdominal aortic aneurysm or stent placement present. The minimum and the perpendicular left common iliac artery measures 7.6 and 8.7 mm, respectively with zeil-ox-bzicgggu tortuosity and mild calcific atherosclerosis present. The minimum and the perpendicular left external iliac artery measures 8.0 and 8.2 mm, respectively with mild tortuosity and no calcific atherosclerosis present. The minimum and the perpendicular left femoral artery measures 7.0 and 7.4 mm, respectively with no tortuosity and minimal calcific atherosclerosis present. The minimum and the perpendicular right common iliac artery measures 6.5 and 8.6 mm, respectively with moderate tortuosity and mild calcific atherosclerosis present. The minimum and the perpendicular right external iliac artery measures 7.5 and 7.7 mm, respectively with moderate tortuosity and mild calcific atherosclerosis present. The minimum and the perpendicular right femoral artery measures 5.9 and 7.2 mm, respectively with mild tortuosity and mild calcific atherosclerosis present. NON-VASCULAR: The visualised thyroid gland is unremarkable. The chest wall and mediastinum appear normal. A number of lymph nodes are identified, likely reactive in nature, and some are calcified indicating prior granulomatous disease. In the lung windows, no endobronchial lesion isseen. Bibasal pleural effusions identified right greater than left, and at least moderate in nature in the right, with associated changes/consolidation identified. Pulmonary vasculature is prominent suggesting a degree of cardiac congestion especially in the setting of aortic stenosis. In addition, patchy groundglass opacities are seen in the anterior aspect of both upper lobes likely as a result ofunderlying cardiac congestion, though atypical infection cannot be excluded. Correlate clinically. Calcified nodule is seen for example in the left lower lobe at image 153 indicating prior granulomatous disease. Furthermore, in the left upper lobe, for example image 94, air space disease is identified. An addendum will be dictated thereafter. In the abdomen, the liver and spleen appears unremarkable. The liver edge is smooth. No abnormal enhancing structure is identified. Calcified granuloma is identified in the liver and the spleen. Gallstone is seen in the gallbladder with no wall thickening iden tified. The adrenal glands could be minimally hypoplastic though no nodule is seen. The pancreas appears unremarkable. Bowel is not well assessed by CT angiography as enteric contrast is not given. No obvious bowel dilation is identified. The prostate is prominent with calcification identified. The bladder is mildly distended. No free air or free fluid is identified in the abdomen and pelvis. No significant retroperitoneal adenopathy is identified. No acute renal pathology seen and no hydronephrosis or perirenal fluid collection is identified. Note, in the outer aspect of the upper pole of the right kidney, image 349, hypodensity is seen with coarse calcification identified. At image 315, it measures 3.0 x 1.5 cm with height of 2.8 cm. It is difficult to determine if any enhancement is present. An addendum will dictated thereafter, regarding optimal recommendation, likely include follow-up versus dedicated cross sectional imaging of the kidney. No acute bony pathology is seen. Mild anterolisthesis identified at L4/L5 level. CONCLUSIONS: 1. Patient has a diagnosis of aortic stenosis. The aortic valve is tricuspid. The aortic Agatston Score is over 6000, and aortic valve area is 82 mm2. Focal mitral annular calcification is identified anteriorly. No obvious calcification is seen in the aortic root/ascending thoracic aorta. Dimensions that may be helpful for TAVR as described above. Calcification is seen at the level of the noncoronary cusp, and also immediately inferior to the noncoronary cusps at the aortic annular level. See reformatted data set for details. 2. Coronary artery origins are normal and focal calcific lesion is identified in the LAD territory. A degree of concentric left ventricular hypertrophy is noted. 3. Bilateral pleural effusion right greater than left, at least moderate in nature in the right. Pulmonary vasculature is prominent suggesting underlying cardiac c ongestion. Patchy groundglass opacities are seen especially in the upper lobe, likely as a sequelae of congestion, however, atypical infection cannot be excluded. Finally, focal airspace disease is identified in the left upper lobe, for example at image 94. An addendum dictated thereafter. 4. Other findings as described above. 5. An addendum will be dictated regarding the non-vascular findings by the Digital Sales Representative Radiologist. Signed: Gaudencio Valencia MDReport Verified Date/Time: 11/04/2019 09:18:32Reading Location: [place] [address] CT Reading Room -GLUCOSE [id number] 07:28:00 Test Item Value Reference Range Interpretation Comments POC-GLUCOSE METER 109 mg/dL 70-110 : TESTED A T [facility] 6720 (BEAKER) (test code = [place], 1538) [address]: Software Controls Engineer/Techni sophie ID = [id number] for NICK LEON [id number] 06:09:00 Test Item Value Reference Range Interpretation Comments MAGNESIUM (BEAKER) 2.2 mg/dL 1.6-2.6 Specimen slightly (test code = 627) hemolyzed Software Controls Engineer ID - PEACE LBASIC METABOLIC [id number] 06:09:00 Test Item Value Reference Range Interpretation Comments SODIUM (BEAKER) 139 meq/L 136-145 (test code = 381) POTASSIUM (BEAKER) 3.8 meq/L 3.5-5.1 Specimen slightly (test code = 379) hemolyzed CHLORIDE (BEAKER) 99 meq/L 98-107 (test code = 382) CO2 (BEAKER) (test 29 meq/L 22-29 code = 355) BLOOD UREA NITROGEN 27 mg/dL 7-21 H (BEAKER) (test code = 354) CREATININE (BEAKER) 1.05 mg/dL 0.57-1.25 Specimen slightly (test code = 358) hemolyzed GLUCOSE RANDOM 114 mg/dL 70-105 H (BEAKER) (test code = 652) CALCIUM (BEAKER) 8.6 mg/dL 8.4-10.2 (test code = 697) EGFR (BEAKER) (test 67 mL/min/1.73 ESTIMA MANDO GFR IS code = 1092) sq m NOT ACCURATE CREATININE CLEARANCE IN PREDICTING GLOMERULAR FILTRATION RATE . ESTIMATED GFR I S NOT APPLICABLE FOR DIALYSIS PATIEN TS. Software Controls Engineer ID - PIAYA [id number] 04:54:00 Test Item Value Reference Range Interpretation Comments PROTIME (BEAKER) (test code = 14.1 seconds 11.9-14.2 759) INR (BEAKER) (test code = 370) 1.1 <=5.9 PARTIAL THROMBOPLASTIN TIME 33.7 seconds 22.5-36.0 (BEAKER) (test code = 760) Effective 11/01/2018: PT Reference Range ChangeNew: 11.9-14.2 Previous: 11.7- 14.7RECOMMENDED COUMADIN/WARFARIN INR THERAPY RANGESSTANDARD DOSE: 2.0-3.0 Includes: PROPHYLAXIS for venous thrombosis, systemic embolization; TREATMENT for venous thrombosis and/or pulmonary embolus.HIGH RISK: Target INR is2.5-3.5 for patients wiht mechanical heart valves.CBC (HEMOGRAM ONLY)2019-11-05 04:46:00 Test Item Value Reference Range Interpretation Comments WHITE BLOOD CELL COUNT (BEAKER) 16.2 K/ L 3.5-10.5 H (test code = 775) RED BLOOD CELL COUNT (BEAKER) 4.59 M/ L 4.63-6.08 L (test code = 761) HEMOGLOBIN (BEAKER) (test code = 13.3 GM/DL 13.7-17.5 L 410) HEMATOCRIT (BEAKER) (test code = 41.2 % 40.1-51.0 411) MEAN CORPUSCULAR VOLUME (BEAKER) 89.8 fL 79.0-92.2 (test code = 753) MEAN CORPUSCULAR HEMOGLOBIN 29.0 pg 25.7-32.2 (BEAKER) (test code = 751) MEAN CORPUSCULAR HEMOGLOBIN CONC 32.3 GM/DL 32.3-36.5 (BEAKER) (test code = 752) RED CELL DISTRIBUTION WIDTH 13.8 % 11.6-14.4 (BEAKER) (test code = 412) PLATELET COUNT (BEAKER) (test 257 K/CU MM 150-450 code = 756) MEAN PLATELET VOLUME (BEAKER) 9.6 fL 9.4-12.4 (test code = 754) NUCLEATED RED BLOOD CELLS 0 /100 WBC 0-0 (BEAKER) (test code = 413) [id number] 21:19:00 Test Item Value Reference Range Interpretation Comments MAGNESIUM (BEAKER) 2.2 mg/dL 1.6-2.6 Specimen slightly (test code = 627) hemolyzed Software Controls Engineer ID - PIAYA LBASIC METABOLIC [id number] 21:19:00 Test Item Value Reference Range Interpretation Comments SODIUM (BEAKER) 137 meq/L 136-145 (test code = 381) POTASSIUM (BEAKER) 4.1 meq/L 3.5-5.1 Specimen slightly (test code = 379) hemolyzed CHLORIDE (BEAKER) 99 meq/L 98-107 (test code = 382) CO2 (BEAKER) (test 27 meq/L 22-29 code = 355) BLOOD UREA NITROGEN 31 mg/dL 7-21 H (BEAKER) (test code = 354) CREATININE (BEAKER) 1.11 mg/dL 0.57-1.25 Specimen slightly (test code = 358) hemolyzed GLUCOSE RANDOM 115 mg/dL 70-105 H (BEAKER) (test code = 652) CALCIUM (BEAKER) 8.3 mg/dL 8.4-10.2 L (test code = 697) EGFR (BEAKER) (test 63 mL/min/1.73 ESTIMA MANDO GFR IS code = 1092) sq m NOT ACCURATE CREATININE CLEARANCE IN PREDICTING GLOMERULAR FILTRATION RATE . ESTIMATED GFR I S NOT APPLICABLE FOR DIALYSIS PATIEN TS. Software Controls Engineer ID - PEACE LPOCT-GLUCOSE [id number] 17:09:00 Test Item Value Reference Range Interpretation Comments POC-GLUCOSE METER 128 mg/dL 70-110 H : TESTED A T [facility] 6720 (BEAKER) (test code = C[place]STA Estevez [facility], 1538) [address]: Software Controls Engineer/Techni sophie ID = [id number] for BE NINO, BEAULA ECG 12 [id number] 17:03:34Interface, External Ris In - 11/04/2019 5:03 PM CDTVentricular Rate 93 BPMAtrial Rate 93 BPMP-R Interval 158 msQRS Duration 148 msQ-T Interval 424 msQTC Calculation(Bazett) 527 msP [place] 54 degreesR [place] 2 degreesT [place] 153 degreesSinus rhythm with Premature supraventricular complexesLeft bundle branch blockAbnormal ECGNo previous ECGs availableConfirmed by MD Anderson Roberto ([id number]) on 11/04/2019 5:03:32 [id number] 14:15:00 Test Item Value Reference Range Interpretation Comments MAGNESIUM (BEAKER) 2.5 mg/dL 1.6-2.6 Specimen slightly (test code = 627) hemolyzed Software Controls Engineer ID - PEACE LBASIC METABOLIC [id number] 14:15:00 Test Item Value Reference Range Interpretation Comments SODIUM (BEAKER) 138 meq/L 136-145 (test code = 381) POTASSIUM (BEAKER) 4.1 meq/L 3.5-5.1 Specimen slightly (test code = 379) hemolyzed CHLORIDE (BEAKER) 99 meq/L 98-107 (test code = 382) CO2 (BEAKER) (test 29 meq/L 22-29 code = 355) BLOOD UREA NITROGEN 28 mg/dL 7-21 H (BEAKER) (test code = 354) CREATININE (BEAKER) 1.08 mg/dL 0.57-1.25 Specimen slightly (test code = 358) hemolyzed GLUCOSE RANDOM 118 mg/dL 70-105 H (BEAKER) (test code = 652) CALCIUM (BEAKER) 8.4 mg/dL 8.4-10.2 (test code = 697) EGFR (BEAKER) (test 65 mL/min/1.73 ESTIMA MANDO GFR IS code = 1092) sq m NOT ACCURATE CREATININE CLEARANCE IN PREDICTING GLOMERULAR FILTRATION RATE . ESTIMATED GFR I S NOT APPLICABLE FOR DIALYSIS PATIEN TS. Software Controls Engineer ID - PIAYA LPOCT-GLUCOSE [id number] 12:09:00 Test Item Value Reference Range Interpretation Comments POC-GLUCOSE METER 160 mg/dL 70-110 H : [facility] (BE[facility]ER[facility] (test code = [place], 1538) [address]: Software Controls Engineer/Techni sophie ID = [id number] for BE LL, BEAULA CTA abdomen & [id number] 09:18:00Interface, External Ris In - 11/05/2019 11:34 AM CDTAddendum BeginsREPORT STATUS:A I agree with the nonvascular findings as below:*Moderate sized left and large right pleural effusions.*There is a centrally nonenhancing area in the right lower lobe with surrounding hypoenhancement. This is either due to a necrotic pneumonia or necrotic mass which measures up to 8.6 cm.*There are several prominent and enlarged mediastinal lymph nodes which could be reactive or metastatic. The etiology of the right lower lobe hypoenhancing area.*There are interstitial and groundglass opacities of the both lungs which are indeterminate and could be due to infection. COVID pneumonia is in the differential. Per the electronic medical record, the COVID test was negative. If the patient has ongoing symptoms, an additional test should be considered.*Cholelithiasis without acute cholecystitis.*A right upper pole renal cyst measures 3.1 cm and has thick internal calcifications, Bosniak 2F. A follow-up CT of the abdomen with and without intravenous contrast, renal mass protocol, is recommended insix months to document stability.*Non-rotation of the bowel.*The prostate is enlarged with several internal calcifications. There may have been a prior TURP.*There is hyperenhancement of a short segment of jejunum in the right upper quadrant from an indeterminate cause. Enteritis is possible. This could be due to inflammation. Close attention on future follow-up examinations is recommended. Signed: Russ Gilbert MDReport Verified Date/Time: 11/05/2019 11:32:40 Reading Location: [address] RadiologyReading RoomAddendum EndsFINAL REPORT CT angiography of the thoracoabdominal aorta and pelvic arteries, 03-Nov-19 INDICATION: This is a 89 years old male, with a diagnosis of aortic stenosis, presents of preprocedure TAVR assessment. TECHNIQUE: Spiral acquisition before and during intravenous contrast administration using a Christian multidetector CT scanner. Images were obtained before and during the dynamic passage of intravenous contrast material. Multi- planar 3-D volume-rendering reconstruction was performed using an independent workstation interactively by the interpreting physician as well as the 3-D specialist for optimal visualisation of the thoracoabdominal aorta, the pelvic arteries as well as its proximal branches. Please refer to the contrast sheet scanned in the EPIC system for the amount and route of contrast given. This exam was performed according to our departmental dose-optimisation programme, which includes automated exposure control, adjustment of the mA and/or kV according to patient size and/or use of iterative reconstruction technique. Dose modulation, iterative reconstruction, and/or weight based adjustment of the mA/kV was utilized to reduce theradiation dose to as low as reasonably achievable. FINDINGS: VASCULAR: Pericardial effusion is noted, located posterior to the right atrium. The central pulmonary arteries are normal in calibre. Thecardiac chambers demonstrate normal atrioventricular and ventriculoarterial concordance, and systemic and pulmonary venous return. The left ventricle is normal in size. Even in mid diastole, a degree of left ventricular hypertrophy is identified concentric. Correlate with echocardiography. Left atrial enlargement is identified. Mitral annular calcification is identified in the posterior mitral valve annulus. Coronary artery origins are normal. Diffuse calcification identified in the LAD territory. Mild calcification seen in the LCx territory. Patient has a diagnosis of aortic stenosis. The aortic valve is tricuspid. The aortic Agatston score is 6340. The aortic valve area is 82 mm2. The locationof aortic valvular calcification can be seen in reformatted data set sent to PACS. Regarding the aorta, there is no calcification is seen in the aortic root/ascending thoracic aorta. The transverse arch and descending thoracic aorta has mild scattered calcification identified. The abdominal aorta has moderate circumferential calcification present with associated noncalcific atherosclerosis, and thereis likely a degree of atherosclerotic ulceration identified, for example at image 397, representing a spectrum of underlying atherosclerosis. No ectasia or aneurysmal dilation is identified. There is no evidence of acute aortic pathology, specifically, there is no dissection, intramural hematoma, or contained rupture. The arch vessel branching pattern is normal and the visualized arch vessels are widely patent proximally. The left subclavian artery, has noncalcific atherosclerosis identified at image 45, with minimum luminal diameter of 5.9 x 7.6 mm in diameter. At image 21, the minimum luminal diameter is approximately 6 to 7 mm. Minimal nonobstructive Consultation is seen at the takeoff of the right subclavian artery, at image 22, it measure 7 to 8 mm in diameter. There are single left and right renal arteries are patent with nonobstructive calcification seen at the origin of the left and theright renal arteries. The coeliac axis, SMA, and BRIT are widely patent. The common iliac, externaliliac, common femoral, and the visualised superficial femoral arteries, bilaterally, are patent withno obstructive lesion identified. Scattered calcification is identified. See dimensions below for details. Dimensions that may be helpful for TAVR as follows: The aortic root/ascending thoracic aorta is essentially free of calcification. The major and minor aortic annulus diameter measures 28.1 and 24.4 mm, respectively. The aortic annulus perimeter measured 84 mm and the cross-sectional area measures 552 mm2. The aortic annulus diameter at the traditional LVOT and coronal LVOT measures 21.6 and 25.7 mm, respectively. For reference purpose, per [employer] S3 brochure, recommendation are as follows: CTarea between 273 to 345 mm2 (20 mm valve); 338 to 430 mm2 (23 mm valve); 430 to 546 mm2 (26 mm valve); 540 to 683 mm2 (29 mm valve). For reference purpose, per [employer] brochure, recommendation are as follows: CT perimeter between 56.5-62.8 mm (23 mm valve); 62.8-72.3 mm (26 mm valve); 72.3-81.7 mm (29 mm valve); and 81.7-94.2. mm (34 mm valve). For reference purpose, per [employer] brochure, recommendation are as follows: 23mm valve is recommended for CT perimeter between 62.8-72.3 mm; diameter between 20- 23 mm; or area between 314-415.5 mm2. For 25mm valve, it is recommended for CT perimeter between 72.3-78.5 mm; diameter between 23-25 mm; or area between 415.5-490.9 mm2. For 27mm valve, it is recommended for CT perimeter between 78.5-84.8 mm; diameter between 25-27 mm; or area between 490.9-572.6 mm2. Agatston Score is 6340. The aortic valve area is 82 mm2. The distance between the take off of the RCA and the annulus (diastole): 13.0 mmThe distance between the take off of the LM and the annulus (diastole): 15.5 mm The sinus of Valsalva diameter, RCC (diastole): 34.0 mmThe sinus of Valsalva diameter, LCC (diastole): 37.5 mmThe sinus of Valsalva diameter, NCC (diastole): 35.7 mm The sinotubular junction measures, 28.6 x 32.4 mm. The aortic root angulation measures 45.5 degrees. The minimal and perpendicular abdominal aortic diameter measure 11.0 and 12.8 mm, respectively. There is no evidence of thoracoabdominal aortic aneurysm or stent placement present. The minimum and the perpendicular left common iliac artery measures 7.6 and 8.7 mm, respectively with [id number] tortuosity and mild calcific atherosclerosis present. The minimum and the perpendicular left external iliac artery measures 8.0 and 8.2 mm, respectively with mild tortuosity and no calcific atherosclerosis present. The minimum and the perpendicular left femoral artery measures 7.0 and 7.4 mm, respectively with no tortuosity and minimal calcific atherosclerosis present. The minimum and the perpendicular right common iliac artery measures 6.5 and 8.6 mm, respectively with moderate tortuosityand mild calcific atherosclerosis present. The minimum and the perpendicular right external iliac artery measures 7.5 and 7.7 mm, respectively with moderate tortuosity and mild calcific atherosclerosis present. The minimum and the perpendicular right femoral artery measures 5.9 and 7.2 mm, respectively with mild tortuosity and mild calcific atherosclerosis present. NON-VASCULAR: The visualised thyroid gland is unremarkable. The chest wall and mediastinum appear normal. A number of lymph nodes are identified, likely reactive in nature, and some are calcified indicating prior granulomatous disease. In the lung windows, no endobronchial lesion is seen. Bibasal pleural effusions identified rightgreater than left, and at least moderate in nature in the right, with associated changes/consolidation identified. Pulmonary vasculature is prominent suggesting a degree of cardiac congestion especially in the setting of aortic stenosis. In addition, patchy groundglass opacities are seen in the anterior aspect of both upper lobes likely as a result of underlying cardiac congestion, though atypical infection cannot be excluded. Correlate clinically. Calcified nodule is seen for example in the left lower lobe at image 153 indicating prior granulomatous disease. Furthermore, in the left upper lobe, for example image 94, air space disease is identified. An addendum will be dictated thereafter. In the abdomen, the liver and spleen appears unremarkable. The liver edge is smooth. No abnormal enhancing structure is identified. Calcified granuloma is identified in the liver and the spleen. Gallstone isseen in the gallbladder with no wall thickening identified. The adrenal glands could be minimally hypoplastic though no nodule is seen. The pancreas appears unremarkable. Bowel is not well assessed by CT angiography as enteric contrast is not given. No obvious bowel dilation is identified. The prostate is prominent with calcification identified. The bladder is mildly distended. No free air or free fluid is identified in the abdomen and pelvis. No significant retroperitoneal adenopathy is identified. No acute renal pathology seen and no hydronephrosis or perirenal fluid collection is identified. Note, in the outer aspect of the upper pole of the right kidney, image 349, hypodensity is seen with coarse calcification identified. At image 315, it measures 3.0 x 1.5 cm with height of 2.8 cm. It is difficult to determine if any enhancement is present. An addendum will dictated thereafter, regarding optimal recommendation, likely include follow-up versus dedicated cross sectional imaging of the kidney. No acute bony pathology is seen. Mild anterolisthesis identified at L4/L5 level. CONCLUSIONS: 1. Patient has a diagnosis of aortic stenosis. The aortic valve is tricuspid. The aortic Agatston Score is over 6000, and aortic valve area is 82 mm2. Focal mitral annular calcification is identified anteriorly. No obvious calcification is seen in the aortic root/ascending thoracic aorta. Dimensions that may be helpful for TAVR as described above. Calcification is seen at the level of the noncoronary cusp, and also immediately inferior to the noncoronary cusps at the aortic annular level. See reformatted data set for details. 2. Coronary artery origins are normal and focal calcific lesion is identified in the LAD territory. A degree of concentric left ventricular hypertrophy is noted. 3. Bilateral pleural effusion right greater than left, at least moderate in nature in the right. Pulmonary vasculature is prominent suggesting underlying cardiac congestion. Patchy groundglass opacities are seenespecially in the upper lobe, likely as a sequelae of congestion, however, atypical infection cannotbe excluded. Finally, focal airspace disease is identified in the left upper lobe, for example at image 94. An addendum dictated thereafter. 4. Other findings as described above. 5. An addendum will be dictated regarding the non-vascular findings by the Digital Sales Representative Radiologist. Signed: Gaudencio Valencia MDReport Verified Date/Time: 11/04/2019 09:18:32 Reading Location: [place] [address] [address] [facility] [id number] 09:18:00Interface, External Ris In - 11/05/2019 11:34 AM CDTAddendum BeginsREPORT STATUS:A I agree with the nonvascular findings as below:*Moderate sized left and large right pleural effusions.*There is a centrally nonenhancing area in the right lower lobe with surrounding hypoenhancement. This is either due to a necrotic pneumonia or necrotic mass which measures up to 8.6 cm.*There are several prominent and enlarged mediastinal lymph nodes which could be reactive or metastatic. The etiology of the right lower lobe hypoenhancing area.*There are interstitial and groundglass opacities of the both lungs which are indeterminate and could be due to infection. COVID pneumonia is in the dif ferential. Per the electronic medical record, the COVID test was negative. If the patient has ongoing symptoms, an additional test should be considered.*Cholelithiasis without acute cholecystitis.*A right upper pole renal cyst measures 3.1 cm and has thick internal calcifications, Bosniak 2F. A follo w-up CT of the abdomen with and without intravenous contrast, renal mass protocol, is recommended insix months to document stability.*Non-rotation of the bowel.*The prostate is enlarged with several internal calcifications. There may have been a prior TURP.*There is hyperenhancement of a short segment of jejunum in the right upper quadrant from an indeterminate cause. Enteritis is possible. This could be due to inflammation. Close attention on future follow-up examinations is recommended. Signed: Russ Gilbert MDReport Verified Date/Time: 11/05/2019 11:32:40 Reading Location: [address] RadiologyReading RoomAddendum EndsFINAL REPORT CT angiography of the thoracoabdominal aorta and pelvic arteries, 03-Nov-19 INDICATION: This is a 89 years old male, with a diagnosis of aortic stenosis, presents of preprocedure TAVR assessment. TECHNIQUE: Spiral acquisition before and during intravenous contrast administration using a Christian multidetector CT scanner. Images were obtained before and during the dynamic passage of intravenous contrast material. Multi-planar 3-D volume-rendering reconstruction was performed using an independent workstation interactively by the interpreting physician as well as the 3-D specialist for optimal visualisation of the thoracoabdominal aorta, the pelvic arteries as well as its proximal branches. Please refer to the contrast sheet scanned in the EPIC system for the amount and route of contrast given. This exam was performed according to our departmental dose-optimisation programme, which includes automated exposure control, adjustment of the mA and/or kV according to patient size and/or use of iterative reconstruction technique. Dose modulation, iterative reconstruction, and/or weight based adjustment of the mA/kV was utilized to reduce theradiation dose to as low as reasonably achievable. FINDINGS: VASCULAR: Pericardial effusion is noted, located posterior to the right atrium. The central pulmonary arteries are normal in calibre. Thecardiac chambers demonstrate normal atrioventricular and ventriculoarterial concordance, and systemic and pulmonary venous return. The left ventricle is normal in size. Even in mid diastole, a degree of left ventricular hypertrophy is identified concentric. Correlate with echocardiography. Left atrialenlargement is identified. Mitral annular calcification is identified in the posterior mitral valve annulus. Coronary artery origins are normal. Diffuse calcification identified in the LAD territory. Mild calcification seen in the LCx territory. Patient has a diagnosis of aortic stenosis. The aortic valve is tricuspid. The aortic Agatston score is 6340. The aortic valve area is 82 mm2. The locationof aortic valvular calcification can be seen in reformatted data set sent to PACS. Regarding the aorta, there is no calcification is seen in the aortic root/ascending thoracic aorta. The transverse arch and descending thoracic aorta has mild scattered calcification identified. The abdominal aorta has moderate circumferential calcification present with associated noncalcific atherosclerosis, and thereis likely a degree of atherosclerotic ulceration identified, for example at image 397, representing a spectrum of underlying atherosclerosis. No ectasia or aneurysmal dilation is identified. There is no evidence of acute aortic pathology, specifically, there is no dissection, intramural hematoma, or co ntained rupture. The arch vessel branching pattern is normal and the visualized arch vessels are widely patent proximally. The left subclavian artery, has noncalcific atherosclerosis identified at image 45, with minimum luminal diameter of 5.9 x 7.6 mm in diameter. At image 21, the minimum luminal diameter is approximately 6 to 7 mm. Minimal nonobstructive Consultation is seen at the takeoff of the right subclavian artery, at image 22, it measure 7 to 8 mm in diameter. There are single left and right renal arteries are patent with nonobstructive calcification seen at the origin of the left and theright renal arteries. The coeliac axis, SMA, and BRIT are widely patent. The common iliac, externaliliac, common femoral, and the visualised superficial femoral arteries, bilaterally, are patent withno obstructive lesion identified. Scattered calcification is identified. See dimensions below for details. Dimensions that may be helpful for TAVR as follows: The aortic root/ascending thoracic aorta is essentially free of calcification. The major and minor aortic annulus diameter measures 28.1 and 24.4 mm, respectively. The aortic annulus perimeter measured 84 mm and the cross-sectional area measures 552 mm2. The aortic annulus diameter at the traditional LVOT and coronal LVOT measures 21.6 and 25.7 mm, respectively. For reference purpose, per RANDHAWA S3 brochure, recommendation are as follows: CTarea between 273 to 345 mm2 (20 mm valve); 338 to 430 mm2 (23 mm valve); 430 to 546 mm2 (26 mm valve); 540 to 683 mm2 (29 mm valve). For reference purpose, per [employer] brochure, recommendation are as follows: CT perimeter between 56.5-62.8 mm (23 mm valve); 62.8-72.3 mm (26 mm valve); 72.3-81.7 mm (29 mm valve); and 81.7-94.2. mm (34 mm valve). For reference purpose, per [employer] Edge brochure, recommendation are as follows: 23mm valve is recommended for CT perimeter between 62.8-72.3 mm; diameter between 20- 23 mm; or area between 314-415.5 mm2. For 25mm valve, it is recommended for CT perimeter between 72.3-78.5 mm; diameter between 23-25 mm; or area between 415.5-490.9 mm2. For 27mm valve, it is recommended for CT perimeter between 78.5-84.8 mm; diameter between 25-27 mm; or area between 490.9-572.6 mm2. Agatston Score is 6340. The aortic valve area is 82 mm2. The distance between the take off of the RCA and the annulus (diastole): 13.0 mmThe distance between the take off of the LM and the annulus (diastole): 15.5 mm The sinus of Valsalva diameter, RCC (diastole): 34.0 mmThe sinus of Valsalva diameter, LCC (diastole): 37.5 mmThe sinus of Valsalva diameter, NCC (diastole): 35.7 mm The sinotubular junction measures, 28.6 x 32.4 mm. The aortic root angulation measures 45.5 degrees. The minimal and perpendicular abdominal aortic diameter measure 11.0 and 12.8 mm, respectively. There is no evidence of thoracoabdominal aortic aneurysm or stent placement present. The minimum and the perpendicular left common iliac artery measures 7.6 and 8.7 mm, respectively with [id number]-[id number] tortuosity and mild calcific atherosclerosis present. The minimum and the perpendicular left external iliac artery measures 8.0 and 8.2 mm, respectively with mild tortuosity and no calcific atherosclerosis present. The minimum and the perpendicular left femoral artery measures 7.0 and 7.4 mm, respectively with no tortuosity and minimal calcific atherosclerosis present. The minimum and the perpendicular right common iliac artery measures 6.5 and 8.6 mm, respectively with moderate tortuosityand mild calcific atherosclerosis present. The minimum and the perpendicular right external iliac artery measures 7.5 and 7.7 mm, respectively with moderate tortuosity and mild calcific atherosclerosis present. The minimum and the perpendicular right femoral artery measures 5.9 and 7.2 mm, respectively with mild tortuosity and mild calcific atherosclerosis present. NON-VASCULAR: The visualised thyroid gland is unremarkable. The chest wall and mediastinum appear normal. A number of lymph nodes are identified, likely reactive in nature, and some are calcified indicating prior granulomatous disease. In the lung windows, no endobronchial lesion is seen. Bibasal pleural effusions identified rightgreater than left, and at least moderate in nature in the right, with associated changes/consolidation identified. Pulmonary vasculature is prominent suggesting a degree of cardiac congestion especially in the setting of aortic stenosis. In addition, patchy groundglass opacities are seen in the anterior aspect of both upper lobes likely as a result of underlying cardiac congestion, though atypical infection cannot be excluded. Correlate clinically. Calcified nodule is seen for example in the left lower lobe at image 153 indicating prior granulomatous disease. Furthermore, in the left upper lobe, for example image 94, air space disease is identified. An addendum will be dictated thereafter. In the abdomen, the liver and spleen appears unremarkable. The liver edge is smooth. No abnormal enhancing structure is identified. Calcified granuloma is identified in the liver and the spleen. Gallstone isseen in the gallbladder with no wall thickening identified. The adrenal glands could be minimally hypoplastic though no nodule is seen. The pancreas appears unremarkable. Bowel is not well assessed by CT angiography as enteric contrast is not given. No obvious bowel dilation is identified. The prostate is prominent with calcification identified. The bladder is mildly distended. No free air or free fluid is identified in the abdomen and pelvis. No significant retroperitoneal adenopathy is identified. No acute renal pathology seen and no hydronephrosis or perirenal fluid collection is identified. Note, in the outer aspect of the upper pole of the right kidney, image 349, hypodensity is seen with coarse calcification identified. At image 315, it measures 3.0 x 1.5 cm with height of 2.8 cm. It is difficult to determine if any enhancement is present. An addendum will dictated thereafter, regarding optimal recommendation, likely include follow-up versus dedicated cross sectional imaging of the kidney. No acute bony pathology is seen. Mild anterolisthesis identified at L4/L5 level. CONCLUSIONS: 1. Patient has a diagnosis of aortic stenosis. The aortic valve is tricuspid. The aortic Agatston Score is over 6000, and aortic valve area is 82 mm2. Focal mitral annular calcification is identified anteriorly. No obvious calcification is seen in the aortic root/ascending thoracic aorta. Dimensions that may be helpful for TAVR as described above. Calcification is seen at the level of the noncoronary cusp, and also immediately inferior to the noncoronary cusps at the aortic annular level. See reformatted data set for details. 2. Coronary artery origins are normal and focal calcific lesion is identified in the LAD territory. A degree of concentric left ventricular hypertrophy is noted. 3. Bilateral pleural effusion right greater than left, at least moderate in nature in the right. Pulmonary vasculature is prominent suggesting underlying cardiac congestion. Patchy groundglass opacities are seenespecially in the upper lobe, likely as a sequelae of congestion, however, atypical infection cannotbe excluded. Finally, focal airspace disease is identified in the left upper lobe, for example at image 94. An addendum dictated thereafter. 4. Other findings as described above. 5. An addendum will be dictated regarding the non-vascular findings by the Digital Sales Representative Radiologist. Signed: Gaudencio Valencia Verified Date/Time: 11/04/2019 09:18:32 Reading Location: [place] [address] [address] Reading [facility] [id number] 07:42:00 Test Item Value Reference Range Interpretation Comments POC-GLUCOSE METER 106 mg/dL 70-110 : TESTED A [facility] 6720 (BEAKER) (test code = CRISTA Zenaida [facility], 1538) [address]26: Software Controls Engineer/Techni sophie ID = [id number] for BE LL, DEBORAH RAD, CHEST, 1 VIEW, NON [id number] 04:25:00Reason for exam:->post right thoracentesisShould this be performed at the bedside?->YesFINAL REPORT Chest one view. Clinical history: post right thoracentesis Comparison: Chest radiograph 11/03/2019, 4:40 PM Technique: A single frontal view of the chest was obtained. Findings: The cardiomediastinal contours are stable. There are diffuse bilateral airspace opacities, increased in the interval. There are small bilateral pleural effusions, right greater than left.There is no pneumothorax. Signed: Mario Bills Verified Date/Time: 11/04/2019 04:25:22 [id number] 03:17:00 Test Item Value Reference Range Interpretation Comments MAGNESIUM (BEAKER) 1.9 mg/dL 1.6-2.6 Specimen slightly (test code = 627) hemolyzed Software Controls Engineer ID - PIAYA LBASIC METABOLIC [id number] 03:17:00 Test Item Value Reference Range Interpretation Comments SODIUM (BEAKER) 139 meq/L 136-145 (test code = 381) POTASSIUM (BEAKER) 3.1 meq/L 3.5-5.1 L Specimen slightly (test code = 379) hemolyzed CHLORIDE (BEAKER) 100 meq/L 98-107 (test code = 382) CO2 (BEAKER) (test 27 meq/L 22-29 code = 355) BLOOD UREA NITROGEN 29 mg/dL 7-21 H (BEAKER) (test code = 354) CREATININE (BEAKER) 1.05 mg/dL 0.57-1.25 Specimen slightly (test code = 358) hemolyzed GLUCOSE RANDOM 132 mg/dL 70-105 H (BEAKER) (test code = 652) CALCIUM (BEAKER) 8.1 mg/dL 8.4-10.2 L (test code = 697) EGFR (BEAKER) (test 67 mL/min/1.73 ESTIMA MANDO GFR IS code = 1092) sq m NOT ACCURATE CREATININE CLEARANCE IN PREDICTING GLOMERULAR FILTRATION RATE . ESTIMATED GFR I S NOT APPLICABLE FOR DIALYSIS PATIEN TS. Software Controls Engineer ID - PIAYA LCBC (HEMOGRAM ONLY)2019-11-04 02:51:00 Test Item Value Reference Range Interpretation Comments WHITE BLOOD CELL COUNT (BEAKER) 20.1 K/ L 3.5-10.5 H (test code = 775) RED BLOOD CELL COUNT (BEAKER) 4.44 M/ L 4.63-6.08 L (test code = 761) HEMOGLOBIN (BEAKER) (test code = 12.8 GM/DL 13.7-17.5 L 410) HEMATOCRIT (BEAKER) (test code = 39.4 % 40.1-51.0 L 411) MEAN CORPUSCULAR VOLUME (BEAKER) 88.7 fL 79.0-92.2 (test code = 753) MEAN CORPUSCULAR HEMOGLOBIN 28.8 pg 25.7-32.2 (BEAKER) (test code = 751) MEAN CORPUSCULAR HEMOGLOBIN CONC 32.5 GM/DL 32.3-36.5 (BEAKER) (test code = 752) RED CELL DISTRIBUTION WIDTH 13.7 % 11.6-14.4 (BEAKER) (test code = 412) PLATELET COUNT (BEAKER) (test 221 K/CU MM 150-450 code = 756) MEAN PLATELET VOLUME (BEAKER) 9.7 fL 9.4-12.4 (test code = 754) NUCLEATED RED BLOOD CELLS 0 /100 WBC 0-0 (BEAKER) (test code = 413) POCT-GLUCOSE [id number] 22:36:00 Test Item Value Reference Range Interpretation Comments POC-GLUCOSE METER 148 mg/dL 70-110 H : TESTED A T [facility] 6720 (BEAKER) (test code = [facility] [place] [place], 1538) 43224: Software Controls Engineer/Techni sophie ID = [id number] for MADELINE MCKENNA CARLISLE 2D Echo W/Doppler(CW/PW/Color)2019-11-03 19:24:55Ejection FractionSLEH ECHO HEARTLAB MKCKESSON CPACSInterface, External Ris In - 11/03/2019 7:25 PM C DTTransthoracic Echocardiography Report (TTE) Demographics Patient Name ARTHUR NUNEZ Date of Study 11/02/2019 Gender Male Visit Number [id number] Race Unknown Room Number 6210 Number Date of 1930 Referring Physician Gabriel Streeter MD Age 89 year(s) Check Weigher Jose Ramon Salas [employer] Caprice Lorenz Interpreting Gabriel Streeter MD Physician Fellow Zenon Gomez MD Procedure Type of Study TTE procedure:2DECHO W DOPPLER(CW/PW/COLOR) (STAT) Indications:Eval EF Function and Aortic stenosis.Clinical HistoryHGB 13.7HCT 42.2 %known severe as, htn, cva, chfContrast Medium: Definity. Amount - 3 mlHeight: 68.5 inches Weight: 68.04 kg (150 lbs) BSA: 1.82 m^2 BMI: 22.48kg/m^2HR: 80 bpm BP: 96/58 mmHg Summary 1. [...] cusp calcification. A trace of aortic regurgitation. Previous Study No prior exam available for comparison. Signature Findings Technical Quality: Technically difficult exam. Left Ventricle The left ventricle is chamber size (by vol index) is moderately enlarged (male - LVED vol 90-100ml.m2) . Normal LV wall thickness. All of the LV segments are moderately hypokinetic . Global LV systolic function moderately reduced . The LVEF was measured using Munson's bi-plane method of disk . LVEF by Munson's method of disk assessment is moderately reduce(35 - 39%) . LV endocardium is adequately visualized with IV ultrasound enhancing agent. Left Atrium LA size is severelyenlarged (>48 ml/m2) . Right Ventricle The right ventricular chamber size and systolic function are within normal limits. Right Atrium RA cavity size is normal . Aortic Valve Severe AoV cusp calcification. A trace of aorticregurgitation. Severe aortic stenosis. AoV area at rest by continuity equation is in the range of 0.73 cm2. AoV resting Peak/Mean Gradient 64/36mmHg. AoV resting dimensionless obstructiveindex (DOI)- 0.23. Mitral Valve Mild MV leaflet calcification. Mild mitral annular calcification. Mild mitral regurgitation. Tricuspid Valve Mild TV leaflet thickening. Mild tricuspid regurgitation. Estimated peak systolic PA pressure is 40-45 mmHg (mild pulmonary hypertension) . Pulmonic Valve Mild PV leaflet thickening. Normal PV structure and function by limited views and Doppler. Aorta Aortic root size (SInus of Valsalva diameter) is normal . Pericardium No significant pericardial effusion is visualized based on available views. IVC/SVC/PA/PV/Pleural The estimated RA pressure by [...] TAPSE: 1.41 cm Aorta Ao Root S ofVal.: 3.24 cm Doppler/Quantitative Measurements Aortic Valve Peak Velocity: 3.99 m/s Mean Velocity: 3 m/s Peak Gradient: 63.68 mmHg Mean Gradient: 36 mmHg AV Area (continuity): 0.73 cm^2 AV VTI: 99 cm AV DVI: 0.23 LVOT Peak Velocity: 1.05 m/s Peak Gradient: 4.4 mmHg Mean Velocity: 0.72 m/s Mean Gradient: 2.56 mmHg LVOT Diameter: 1.99 cm LVOT VTI: 23.2 cm LVOT Area: 3.11 cm^2 LVOT SV:72.12 ml LVOT CO: 5.77 l/min LVOT CI: 3.17 l/min/m^2 Tricuspid Valve TR Velocity: 2.97 m/s TR Gradient: 35.2 mmHgCoastal Communities HospitalProtein, Total, Pleural [id number] 19:17:00 Test Item Value Reference Range Interpretation Comments PROTEIN, TOTAL, PLEURAL FLUID (test 2.4 g/dL code = 2882-9) [facility] HospitalPROTEIN, TOTAL, PLEURAL [id number] 19:17:00 Test Item Value Reference Range Interpretation Comments PROTEIN, TOTAL, PLEURAL FLUID 2.4 g/dL (BEAKER) (test code = 8702472) U/S, [id number] 17:09:00Laterality?->RightReason for exam:- >effusionLabs to be Ordered:->Body Fluid Culture (w/GramStain, C\\T\\S)Labs to be Ordered:->CytologyLabs to be Ordered:->Glucose+LDH+ProteinLabs to be Ordered:->Fungal CultureFINAL REPORT PROCEDURE: Ultrasound-guided thoracentesis INDICATION: effusion.DESCRIPTION: After obtaining informed written consent, ultrasound scan showed pleural effusion on the right. The overlying skin was prepped and draped in the usual, sterile fashion and local 2% lidocaine anesthesia was administered. A 4 Sudanese catheter was advanced into the pleural cavity and 1500 mL of clear yellow fluid was removed. The catheter was removed without immediate complication. Samples were sent for analysis. IMPRESSION: Uncomplicated ultrasound-guided right thoracentesis with 1500 mL of fluid removed. Signed: Russ Gilbert MDReport Verified Date/Time: 11/03/2019 17:09:49 Reading Location: [facility] C0Y CT Body Reading Room RAD, CHEST, 1 VIEW, NON [id number] 16:47:00Reason for exam:->s/p right thoracestesisShould this be performed at the bedside?->YesFINAL REPORT EXAM: Chest one view COMPARISON: November 03, 2019 CLINICAL HISTORY: Status post thoracentesis Findings: There is interval improvement in right pleural effusion with mildto moderate residual fluid. There is no evidence of pneumothorax. The cardiac size remaining enlarged. Nodular airway opacities in the left upper lung are again noted which appear worsened compared to the prior study. Diffuse interstitial pulmonary opacities are also noted. The regional osseous structures are unremarkable. Signed: Barbara Ho MDReport Verified Date/Time: 11/03/2019 16:47:48 Reading Location: [facility] C013T Transitional Reading Room Legionella antigen, [id number] 13:44:00 Test Item Value Reference Range Interpretation Comments Legionella Urine Negative - see Negative for L. Antigen (test code comment pneumophi la = 91532-1) serogroup 1 ant igen, suggesting no r ecent or current infe ction with this serog roup. Legionellosis c annot be ruled out si nce other serogroup s and species may cau se disease. [facility] Medicinetrep pneumoniae [id number] 13:44:00 Test Item Value Reference Range Interpretation Comments Strep pneumoniae Presumptive negative Presumptive Antigen (test code = [place] [address]-2) pneumonia - see pneumococcal comment pneumonia - see comment, Presumptive negative for pneumococcal meningitis FAIZA (test code = FAIZA) Presumptive negative for pneumococcal pneumonia, suggesting no current or recent pneumococcal infection. Infection due to S. pneumoniae cannot be ruled out since the antigen present in the sample may be below the detection limit of the test. Lab Interpretation Normal (test code = 49361-5) [facility] MedicineTREP PNEUMONIAE [id number] 13:44:00 Test Item Value Reference Range Interpretation Comments STREP PNEUMONIAE Presumptive negative Presumptive negative ANTIGEN (BEAKER) for pneumococcal for pneumococcal (test code = 1615) pneumonia - see pneumonia - see comment commen Presumptive negative for pneumococcal pneumonia, suggesting no current or recent pneumococcal infection. Infection due to S. pneumoniae cannot be ruled out since the antigen present in the sample may be below the detection limit of the test.LEGIONELLA ANTIGEN, [id number] 13:44:00 Test Item Value Reference Range Interpretation Comments L. PNEUMOPHILA Negative - see Negative fo r L. SEROGP 1 UR AG comment pneumophila (BEAKER) (test code serogrou p 1 antigen, = 1156) suggesting no r ecent or current infe ction with this serog roup. Legionellosis c annot be ruled out si nce other serogroup s and species may cau se disease. Hemoglobin [id number] 12:43:00 Test Item Value Reference Range Interpretation Comments Hemoglobin A1C (test code = 4548-4) 5.4 % 4.3-6.1 Lab Interpretation (test code = Normal 63971-1) [facility] HospitalHEMOGLOBIN [id number] 12:43:00 Test Item Value Reference Range Interpretation Comments HEMOGLOBIN A1C (BEAKER) (test code = 5.4 % 4.3-6.1 368) Venous doppler legs [id number] 11:15:27Ejection FractionSLEH ECHO HEARTLAB MKCKESSON CPACSRight Impression1. There is no deep venous obstruction in the common femoral, profundafemoral, femoral, popliteal, posterior tibial or peroneal veins.2. There is no superficial venous obstruction in the great saphenous vein.Left Impression1. There is no deep venous obstruction in the common femoral, profundafemoral, femoral, popliteal, posterior tibial or peroneal veins.2. There is no superficial venous obstruction in the great saphenous vein. Conclusions Summary Venous duplex imaging and compression of the bilateral lower extremities were performed. The veins were adequately visualized. The bilateral venous systems were patent and compressiblewith no evidence of thrombus. The venous Doppler waveforms were phasic with respiration . Signature Velocities are measured in cm/s ; Diameters are measured in cm Interface, External Ris In - 11/03/2019 11:15 AM CDTPV LAB - Lower Extremities DVT Study Demographics Patient Name ARTHUR NUNEZ Date of Study 11/03/2019 Age 89 Visit Number [id number] Gender Male Accession Number [id number] Date of 1930 Referring Ciara Abraham Room Number 6210 Physician MD [place] Check Weigher Eloise Escobar [facility] Interpreting Reshma Bal Physician ProcedureType of Study: Veins: Lower Ex tremities DVT Study, VENOUS DOPPLER LEG, BILATERAL. Indications for Study:Shortness of breath.Patient Status:STAT.Study Location:Portable.Technical Quality:Adequate visualization.Risk FactorsHistory of Disease+ + +------ --+!Diagnosis !Date !Comments!+ + +--------+!History/Risk Factors: !11/03/2019!CHF !! ! ! !! ! !SOB !+ + +--------+ImpressionsRight Impression1. There is no deep venous obstruction in the common femoral, profundafemoral, femoral, popliteal, posterior tibial or peroneal veins.2. There is no superficial venous obstruction in the great saphenous vein.Left Impression1. There is no deep venous obstruction in the common femoral, profundafemoral, femoral, popliteal, posterior tibial or peroneal veins.2. There is no superficial venous obstruction in the great saphenous vein. Conclusions Summary Venous duplex imaging and compression of the bilateral lower extremities were performed. The veins were adequately visualized. The bilateral venous systems were patent and compressible with no evidence of thrombus. The venous Doppler waveforms were phasic with respiration . Signature ------ Velocities are measured in cm/s ; Diameters are measured in [facility] POCT-GLUCOSE [id number] 10:45:00 Test Item Value Reference Range Interpretation Comments POC-GLUCOSE METER 108 mg/dL 70-110 : TESTED [facility] 6720 (DAVIDGUANAKO) (test code = [place], 1538) 88062: Software Controls Engineer/Techni sophie ID = [id number] for GARCIA FFAR, JANY T4, [id number] 10:39:00 Test Item Value Reference Range Interpretation Comments Free T4 (test code = 3024-7) 0.71 ng/dL 0.7-1.48 FAIZA (test code = FAIZA) Software Controls Engineer ID - LM Lab Interpretation (test Normal code = 59967-0) [facility] HospitalT4, [id number] 10:39:00 Test Item Value Reference Range Interpretation Comments FREE T4 (BEAKER) (test code = 655) 0.71 ng/dL 0.70-1.48 Software Controls Engineer ID - LMTSH/Free T4 If [id number] 09:49:00 Test Item Value Reference Range Interpretation Comments TSH (test code = 11290-6) 0.325 0.350- 4.940 uIU/mL L FAIZA (test code = FAIZA) Software Controls Engineer ID - LM Lab Interpretation (test Abnormal code = 85039-9) [facility] HospitalCortisol2020-05-30 09:49:00 Test Item Value Reference Range Interpretation Comments Cortisol, Total (test code 21.3 ug/dL 3.7-19.4 H = 2755) FAIZA (test code = FAIZA) Software Controls Engineer ID - ALYSE W Lab Interpretation (test Abnormal code = 06961-8) [facility] HospitalCORTISOL2020-05-30 09:49:00 Test Item Value Reference Range Interpretation Comments CORTISOL, TOTAL (BEAKER) (test 21.3 ug/dL 3.7-19.4 H code = 2755) Software Controls Engineer ID - ALYSE WTSH/FREE T4 IF [id number] 09:49:00 Test Item Value Reference Range Interpretation Comments THYROID STIMULATING HORMONE 0.325 uIU/mL 0.350-4.940 L (BEAKER) (test code = 772) Software Controls Engineer ID - [id number] 09:44:00 Test Item Value Reference Range Interpretation Comments Procalcitonin (test code = 1.00 ng/mL <0.05 H 17177-3) FAIZA (test code = FAIZA) SEPSIS RISK (ng/mL)Low: 0.05-0.50Intermedi ate: 0.51-2.00High: >=2.01 Lab Interpretation (test Abnormal code = 23325-4) [facility] 09:44[facility]00 Test Item Value Reference Range Interpretation Comments PROCALCITONIN (BEAKER) (test code 1.00 ng/mL <0.05 H = 3036) SEPSIS RISK (ng/mL)Low: 0.05-0.50Intermediate: 0.51-2.00High: >=2.01BASIC METABOLIC [id number] 09:02:00 Test Item Value Reference Range Interpretation Comments SODIUM (BEAKER) 137 meq/L 136-145 (test code = 381) POTASSIUM (BEAKER) 4.1 meq/L 3.5-5.1 Specimen moderately (test code = 379) hemolyzed CHLORIDE (BEAKER) 100 meq/L 98-107 (test code = 382) CO2 (BEAKER) (test 30 meq/L 22-29 H code = 355) BLOOD UREA NITROGEN 19 mg/dL 7-21 (BEAKER) (test code = 354) CREATININE (BEAKER) 1.03 mg/dL 0.57-1.25 Specimen moderately (test code = 358) hemolyzed GLUCOSE RANDOM 121 mg/dL 70-105 H (BEAKER) (test code = 652) CALCIUM (BEAKER) 8.0 mg/dL 8.4-10.2 L (test code = 697) EGFR (BEAKER) (test 68 mL/min/1.73 ESTIMA MANDO GFR IS code = 1092) sq m NOT ACCURATE CREATININE CLEARANCE IN PREDICTING GLOMERULAR FILTRATION RATE . ESTIMATED GFR I S NOT APPLICABLE FOR DIALYSIS PATIEN TS. Software Controls Engineer ID - ALYSE MORGAN [facility]CTION [id number] 09:02:00 Test Item Value Reference Range Interpretation Comments TOTAL PROTEIN (BEAKER) 5.6 gm/dL 6.0-8.3 L Speci men moderately (test code = 770) hemolyzed ALBUMIN (BEAKER) (test 2.7 g/dL 3.5-5.0 L Speci men moderately code = 1145) hemolyzed BILIRUBIN TOTAL 0.6 mg/dL 0.2-1.2 Specimen mod erately (BEAKER) (test code = hemoly zed 377) BILIRUBIN DIRECT 0.3 mg/dL 0.1-0.5 Specimen mo derately (BEAKER) (test code = hemoly zed 706) ALKALINE PHOSPHATASE 73 U/L 40-150 (BEAKER) (test code = 346) AST (SGOT) (BEAKER) 29 U/L 5-34 Specimen moderately (test code = 353) hemolyzed ALT (SGPT) (BEAKER) 22 U/L 6-55 Specimen moderately (test code = 347) hemolyzed Software Controls Engineer ID - ALYSE WLACTIC ACID, [id number] 08:57:00 Test Item Value Reference Range Interpretation Comments LACTATE BLOOD VENOUS 1.83 mmol/L 0.50-2.20 Specime n markedly (2) (BEAKER) (test hemolyzed code = 2872) Software Controls Engineer ID - ALYSE WRAD, CHEST, 1 VIEW, NON [id number] 08:20:00Reason for exam:->pulmonary edemaShould this be performed at the bedside?->YesFINAL REPORT RAD, CHEST, 1 VIEW, NON DEPT INDICATION: pulmonary edema COMPARISON: Prior day's exam FINDINGS: Portable frontal view of the chest. IMPRESSION: Support Lines: None. Lungs and pleura: Scattered airspace disease, interstitial congestion and bilateral effusions again noted. There is questionable enlarging volume of the right effusion. No pneumothorax.Heart and mediastinum: Visible contours are unchanged.Additional findings: None. Signed: JR Fragoso Robert MDReport Verified Date/Time: 11/03/2019 08:20:32 Reading Location: [address] Neuro Reading Room CBC (HEMOGRAM ONLY)2019-11-03 06:41:00 Test Item Value Reference Range Interpretation Comments WHITE BLOOD CELL COUNT (BEAKER) 20.9 K/ L 3.5-10.5 H (test code = 775) RED BLOOD CELL COUNT (BEAKER) 4.21 M/ L 4.63-6.08 L (test code = 761) HEMOGLOBIN (BEAKER) (test code = 12.3 GM/DL 13.7-17.5 L 410) HEMATOCRIT (BEAKER) (test code = 38.2 % 40.1-51.0 L 411) MEAN CORPUSCULAR VOLUME (BEAKER) 90.7 fL 79.0-92.2 (test code = 753) MEAN CORPUSCULAR HEMOGLOBIN 29.2 pg 25.7-32.2 (BEAKER) (test code = 751) MEAN CORPUSCULAR HEMOGLOBIN CONC 32.2 GM/DL 32.3-36.5 L (BEAKER) (test code = 752) RED CELL DISTRIBUTION WIDTH 13.6 % 11.6-14.4 (BEAKER) (test code = 412) PLATELET COUNT (BEAKER) (test 237 K/CU MM 150-450 code = 756) MEAN PLATELET VOLUME (BEAKER) 10.0 fL 9.4-12.4 (test code = 754) NUCLEATED RED BLOOD CELLS 0 /100 WBC 0-0 (BEAKER) (test code = 413) BLOOD GAS, [id number] 03:15:00 Test Item Value Reference Range Interpretation Comments PH ARTERIAL (BEAKER) (test code = 7.51 7.35-7.45 H 383) PCO2 ARTERIAL (BEAKER) (test code 37 mmHg 35-45 = 384) PO2 ARTERIAL (BEAKER) (test code = 77 mmHg 80-90 L 385) O2 SATURATION ARTERIAL (BEAKER) 96.7 % 96.0-97.0 (test code = 386) HCO3 ARTERIAL (BEAKER) (test code 29 mmol/L 21-29 = 388) BASE EXCESS ARTERIAL (BEAKER) 5.5 mmol/L -2.0-3.0 H (test code = 387) PATIENT TEMPERATURE (BEAKER) (test 36.4 C code = 1818) FIO2 (BEAKER) (test code = 1819) 32.0 % Troponin [id number] 02:16:00 Test Item Value Reference Range Interpretation Comments Troponin I (test code = 0.58 ng/mL 0-0.03 84556-0) FAIZA (test code = FAIZA) Troponin I (TnI) levels must be interpreted in the context of the presenting symptoms and the clinical findings. Elevated TnI levels indicate myocardial damage, but are not specific for ischemic heart disease. Elevated TnI levels are seen in patients with other cardiac conditions (including myocarditis and congestive heart failure), and slight TnI elevations occur in patients with other conditions, including sepsis, renal failure, acidosis, acute neurological disease, and persistent tachyarrhythmia.Opera tor ID - PIAYA L Lab Interpretation (test Abnormal code = 53096-9) [facility] HospitalROBERTO [id number] 02:16:00 Test Item Value Reference Range Interpretation Comments TROPONIN I (BEAKER) (test code = 0.58 ng/mL 0.00-0.03 [facility]) Troponin I (TnI) levels must be interpreted in the context of the presenting symptoms and the clinical findings. Elevated TnI levels indicate myocardial damage, but are not specific for ischemic heart disease. Elevated TnI levels are seen in patients with other cardiac conditions (including myocarditis and congestive heart failure), and slight TnI elevations occur in patients with other conditions, including sepsis, renal failure, acidosis, acute neurological disease, and persistent tachyarrhythmia.Software Controls Engineer ID - PIAYA LRespiratory Panel [id number] 01:12:00 Test Item Value Reference Range Interpretation Comments Human Metapneumovirus Not detected Not detected, (test code = 63299-7) Equivocal Rhinovirus (test code = Not detected Not detected, 66787-4) Equivocal INFLUENZA A (NO Not detected Not detected, SUBTYPE) (test code = Equivocal 14856-2) Influenza A subtype H1 (test code = 00045-7) Influenza A Subtype H3 (test code = 26523-9) Influenza A Subtype H1-2009 (test code = 32668-1) Influenza B (test code Not detected Not detected, = 94756-1) Equivocal Respiratory Syncytial Not detected Not detected, Virus (test code = Equivocal 99230-6) Parainfluenza Virus 1 Not detected Not detected, (test code = 25371-1) Equivocal Parainfluenza Virus 2 Not detected Not detected, (test code = 02139-3) Equivocal Parainfluenza virus 3 Not detected Not detected, (test code = 37488-9) Equivocal Parainfluenza Virus 4 Not detected Not detected, (test code = 79116-6) Equivocal Adenovirus (test code = Not detected Not detected, 15927-0) Equivocal Coronavirus 229E (test Not detected Not detected, code = 04791-9) Equivocal Coronavirus HKU1 (test Not detected Not detected, code = 78125-7) Equivocal Coronavirus NL63 (test Not detected Not detected, code = 33909-9) Equivocal Coronavirus OC43 (test Not detected Not detected, code = 06305-7) Equivocal Bordetella Pertussis Not detected Not detected, (test code = 65424-9) Equivocal Chlamydophila Not detected Not detected, Pneumoniae (test code = Equivocal 84369-7) Mycoplasma Pneumoniae Not detected Not detected, (test code = 81409-4) Equivocal FAIZA (test code = FAIZA) Other viruses and bacteria not targeted by this PCR panel cannot be excluded; therefore clinical correlation and follow up of serology, culture results, and other molecular studies is required. The results are not intended to be used as the sole means for clinical diagnosis or patient management decisions. This sample was tested at the [facility] Molecular Diagnostics Laboratory using the HelioVoltArray Respiratory Panel. It is FDA cleared and has been verified and approved by the [facility] for clinical use on nasopharyngeal swab specimens. The performance of the FilmArray RP has not been established in individuals who received influenza vaccine. Recent administration of a nasal influenza vaccine may cause false positive results for Influenza A and/orInfluenza B. [facility] [id number] 01:12:00 Test Item Value Reference Range Interpretation Comments HUMAN METAPNEUMOVIRUS Not detected Not detected, (BEAKER) (test code = 2683) Equivocal RHINOVIRUS (BEAKER) (test Not detected Not detected, code = 2684) Equivocal INFLUENZA A (BEAKER) (test Not detected Not detected, code = 2685) Equivocal INFLUENZA A (NO SUBTYPE) (test code = 3606) INFLUENZA A SUBTYPE H1 (BEAKER) (test code = 2686) INFLUENZA A SUBTYPE H3 (BEAKER) (test code = 2687) INFLUENZA A SUBTYPE H1-2009 (BEAKER) (test code = 3198) INFLUENZA B (BEAKER) (test Not detected Not detected, code = 2688) Equivocal RESPIRATORY SYNCYTIAL VIRUS Not detected Not detected, (BEAKER) (test code = 3199) Equivocal PARAINFLUENZA VIRUS 1 Not detected Not detected, (BEAKER) (test code = 2691) Equivocal PARAINFLUENZA VIRUS 2 Not detected Not detected, (BEAKER) (test code = 2692) Equivocal PARAINFLUENZA VIRUS 3 Not detected Not detected, (BEAKER) (test code = 2693) Equivocal PARAINFLUENZA VIRUS 4 Not detected Not detected, (BEAKER) (test code = 3200) Equivocal ADENOVIRUS (BEAKER) (test Not detected Not detected, code = 2694) Equivocal CORONAVIRUS 229E (BEAKER) Not detected Not detected, (test code = 3201) Equivocal CORONAVIRUS HKU1 (BEAKER) Not detected Not detected, (test code = 3202) Equivocal CORONAVIRUS NL63 (BEAKER) Not detected Not detected, (test code = 3203) Equivocal CORONAVIRUS OC43 (BEAKER) Not detected Not detected, (test code = 3204) Equivocal BORDETELLA PERTUSSIS Not detected Not detected, (BEAKER) (test code = 3205) Equivocal CHLAMYDOPHILA PNEUMONIAE Not detected Not detected, (BEAKER) (test code = 3206) Equivocal MYCOPLASMA PNEUMONIAE Not detected Not detected, (BEAKER) (test code = 3207) Equivocal Other viruses and bacteria not targeted by this PCR panel cannot be excluded; therefore clinical correlation and follow up of serology, culture results, and other molecular studies is required. The results are not intended to be used as the sole means for clinical diagnosis or patient management decisions. This sample was tested at the [facility] Molecular Diagnostics Laboratory using the HelioVoltArray Respiratory Panel. It is FDA cleared and has been verified and approved by the [facility] Molecular Diagnostics Laboratory for clinical use on nasopharyngeal swab specimens.The performance of the FilmArrayRP has not been established in individuals who received influenza vaccine. Recent administration ofa nasal influenza vaccine may cause false positive results for Influenza A and/orInfluenza B.TROPONIN [id number] 00:57:00 Test Item Value Reference Range Interpretation Comments TROPONIN I (BEAKER) (test code = 0.56 ng/mL 0.00-0.03 [facility]) Troponin I (TnI) levels must be interpreted in the context of the presenting symptoms and the clinical findings. Elevated TnI levels indicate myocardial damage, but are not specific for ischemic heart disease. Elevated TnI levels are seen in patients with other cardiac conditions (including myocarditis and congestive heart failure), and slight TnI elevations occur in patients with other conditions, including sepsis, renal failure, acidosis, acute neurological disease, and persistent tachyarrhythmia.Software Controls Engineer ID - PIAYA LECG/EKG [id number] 23:37:13 Test Item Value Reference Range Interpretation Comments FAIZA (test code = FAIZA) Ciara Posadas MD 11/03/2019 12:52 AMECG/EKG InterpretationDate/Ti me: 11/03/2019 12:49 AMPerformed by: Ciara Posadas MDAuthorized by: Ciara Posadas MD The ECG was interpreted by ED physician. This ECG was compared with previous ECG(s).The ECG is interpreted as sinus tachycardia. Ectopy noted: atrial premature contractions. Rate is tachycardic. Abnormal conduction noted: left bundle branch block.ST segments normal. T-wave inversion in lead(s) I, II and aVF. Clinical Impression: abnormal ECGECG reviewed and does not meet STEMI criteria. Lab Interpretation (test Abnormal code = 56701-5) [facility]CRITICAL [id number] 23:37:13Ciara Posadas MD 11/03/2019 12:52 AMCritical CarePerformed by: Ciara Posadas MDAuthorized by: Ciara Posadas MD Total critical care time: 35 minutesCritical care time was exclusive of separately billable procedures and treating other patients.Critical care was necessary totreat or prevent imminent or life-threatening deterioration of the following conditions: cardiac failure, sepsis, circulatory failure and respiratory failure.Critical care was time spent personally by me on the following activities: development of treatment plan with patient or surrogate, discussions with consultants, interpretation of cardiac output measurements, evaluation of patient's response to treatment, examination of patient, obtaining history from patient or surrogate, ordering and performing treatments and interventions, ordering and review of laboratory studies, ordering and review of radiographic studies, pulse oximetry and re- evaluation of patient's condition.Subsequent provider of critical care: I assumed direction of critical care for this patient from another provider of my specialty.[facility] HospitalBLOOD GAS, [id number] 21:28:00 Test Item Value Reference Range Interpretation Comments PH ARTERIAL (BEAKER) (test code = 7.51 7.35-7.45 H 383) PCO2 ARTERIAL (BEAKER) (test code 34 mmHg 35-45 L = 384) PO2 ARTERIAL (BEAKER) (test code = 110 mmHg 80-90 H 385) O2 SATURATION ARTERIAL (BEAKER) 98.5 % 96.0-97.0 H (test code = 386) HCO3 ARTERIAL (BEAKER) (test code 26 mmol/L -29 = 388) BASE EXCESS ARTERIAL (BEAKER) 3.4 mmol/L -2.0-3.0 H (test code = 387) PATIENT TEMPERATURE (BEAKER) (test 36.6 C code = 1818) FIO2 (BEAKER) (test code = 1819) 40.0 % URINALYSIS W/ REFLEX URINE [id number] 21:12:00 Test Item Value Reference Range Interpretation Comments COLOR (BEAKER) (test code = 470) Colorless CLARITY (BEAKER) (test code = 469) Clear SPECIFIC GRAVITY UA (BEAKER) (test 1.006 1.001-1.035 code = 468) PH UA (BEAKER) (test code = 467) 6.0 5.0-8.0 PROTEIN UA (BEAKER) (test code = Negative Negative 464) GLUCOSE UA (BEAKER) (test code = Negative Negative 365) KETONES UA (BEAKER) (test code = Negative Negative 371) BILIRUBIN UA (BEAKER) (test code = Negative Negative 462) BLOOD UA (BEAKER) (test code = 461) Negative Negative NITRITE UA (BEAKER) (test code = Negative Negative 465) LEUKOCYTE ESTERASE UA (BEAKER) Negative Negative (test code = 466) UROBILINOGEN UA (BEAKER) (test code 0.2 mg/dL 0.2-1.0 = 463) RBC UA (BEAKER) (test code = 519) 2 /HPF WBC UA (BEAKER) (test code = 520) < /HPF HYALINE CASTS (BEAKER) (test code = 11 /LPF 514) SOURCE(BEAKER) (test code = 2795) Software Controls Engineer ID - [auto]Software Controls Engineer ID - GauravRS-CoV2/RT-PCR (Symptomatic ONLY) 2019-11-02 21:08:00 Test Item Value Reference Range Interpretation Comments SARS-COV2/RT-PCR Not Detected Not Detected, (test code = Negative 43692-8) SARS-COV-2 [facility] PERFORMING LAB (test code = 83547-5) FAIZA (test code = Negative results do not FAIZA) preclude SARS-CoV-2 infection and should not be used as [...] of the Act. Fact Sheet for Healthcare Providers:https://www.PredictionIO/Documents/Xper t%20Xpress%20SARS%20CoV- 2/Fact%20Sheets/3023802 %34DIEG-PJF-0%20HEALTHCA RE%20PROVIDERS%20FACT%20 SHEET.pdf Fact Sheet for Healthcare Patients:https://www.viseto/Documents/Xpert %20Xpress%20SARS%20CoV-2 /Fact%20Sheets/3023801% 51ENUK-DMJ-4%20PATIENT%2 0FACT%20SHEET.pdf Performing Laboratory:[place] [address] [address]OV2/RT-PCR ([facility])2019-11-02 21:08:00 Test Item Value Reference Range Interpretation Comments SARS-COV2/RT-PCR (test Not Detected Not Detected, Negative code = 6006232) SARS-COV-2 PERFORMING LAB [facility] (test code = 1895765) Negative results do not preclude SARS-CoV-2 infection and should not be used as the sole basis for patient management decisions. Negative results must be combined with clinical observations, patient history, and epidemiological information. A false negative result may occur if a specimen is improperly collected, transported or handled.The limit of detection for this assay is 250 copies/mL.This SARS CoV-2 test is a rapid, real-time RT-PCR test intended for the qualitative detection of nucleic acid from SARS-CoV-2 in a nasopharyngeal swab specimen collected from individuals suspected of COVID-19 by their healthcare provider.This test has not been Food and Drug [...] is revoked under Section 564(g) of the Act.Fact Sheet for Healthcare Pro viders:https://www.Abril/Documents/Xpert%20Xpress%20SARS%20CoV-2/Fact%20Sh eets/302-3802%06LIAP-WTD-2%20HEALTHCARE%20PROVIDERS%20FACT%20SHEET.pdfFact Sheet for Healthcare Patients:https://www.DataKraft/Documents/Xpert%20Xpress%20SARS%20CoV-2/Fact%20Sheets/302-3801%20SARS-COV -2%20PATIENT%20FACT%20SHEET.pdfPerforming Laboratory:[facility], [place] [address]KFHSNDLF [id number] 20:37:00 Test Item Value Reference Range Interpretation Comments TROPONIN I (BEAKER) (test code = 0.36 ng/mL 0.00-0.03 397) Troponin I (TnI) levels must be interpreted in the context of the presenting symptoms and the clinical findings. Elevated TnI levels indicate myocardial damage, but are not specific for ischemic heart disease. Elevated TnI levels are seen in patients with other cardiac conditions (including myocarditis and congestive heart failure), and slight TnI elevations occur in patients with other conditions, including sepsis, renal failure, acidosis, acute neurological disease, and persistent tachyarrhythmia.Software Controls Engineer ID - BSManual Differential 2019-11-02 20:33:00 Test Item Value Reference Range Interpretation Comments % Neutros (test code = 99 % 2816) % Monos (test code = 1 % 2818) # Neutros (test code = 35.64 K/ul 1.78-5.38 H 2830) # Monos (test code = 0.36 K/uL 0.3-0.82 2832) Total Counted (test code 100 = 1351) WBC Morphology (test code Normal = 487) Platelet Morphology (test Normal code = 486) Polychromasia (test code 1+ few = 478) Anisocytosis (test code = 1+ few 961) Microcytes (test code = 1+ few 965) Macrocytes (test code = 1+ few 964) Poikilocytes (test code = 2+ moderate 966) Manasa Cells (test code = 1+ few 474) Platelet Conc (test code Adequate = 3438) FAIZA (test code = FAIZA) Software Controls Engineer ID - Judy Pereyra comments: Slide comments: Lab Interpretation (test Abnormal code = 49985-5) [facility](CELLAVISION MANUAL DIFF)2019-11-02 20:33:00 Test Item Value Reference Range Interpretation Comments NEUTROPHILS - REL 99 % (CELLAVISION)(BEAKER) (test code = 2816) MONOCYTES - REL 1 % (CELLAVISION)(BEAKER) (test code = 2818) NEUTROPHILS - ABS 35.64 K/ul 1.78-5.38 H (CELLAVISION)(BEAKER) (test code = 2830) MONOCYTES - ABS 0.36 K/uL 0.30-0.82 (CELLAVISION)(BEAKER) (test code = 2832) TOTAL COUNTED (BEAKER) (test code 100 = 1351) WBC MORPHOLOGY (BEAKER) (test Normal code = 487) PLT MORPHOLOGY (BEAKER) (test Normal code = 486) POLYCHROMATOPHILLIC RBCS(BEAKER) 1+ few (test code = 478) ANISOCYTOSIS (BEAKER) (test code 1+ few = 961) MICROCYTES (BEAKER) (test code = 1+ few 965) MACROCYTES (BEAKER) (test code = 1+ few 964) POIKILOCYTES (BEAKER) (test code 2+ moderate = 966) MANASA CELLS (BEAKER) (test code = 1+ few 474) PLATELET CONCENTRATION Adequate (CELLAVISION)(BEAKER) (test code = 3438) Software Controls Engineer ID - Judy Pereyra comments: Slide comments:B-type Natriuretic Factor (BNP)2019-11-02 20:28:00 Test Item Value Reference Range Interpretation Comments BNP (test code = 07411-0) 1394 pg/mL 0-100 H FAIZA (test code = FAIZA) Software Controls Engineer ID - DB Lab Interpretation (test Abnormal code = 32677-8) [facility] HospitalB-[facility] NATRIURETIC FACTOR (BNP)2019-11-02 20:28:00 Test Item Value Reference Range Interpretation Comments B-TYPE NATRIURETIC PEPTIDE 1394 pg/mL 0-100 H (BEAKER) (test code = 700) Software Controls Engineer ID - DBHEPATIC FUNCTION [id number] 20:25:00 Test Item Value Reference Range Interpretation Comments TOTAL PROTEIN (BEAKER) (test code = 6.4 gm/dL 6.0-8.3 770) ALBUMIN (BEAKER) (test code = 1145) 3.5 g/dL 3.5-5.0 BILIRUBIN TOTAL (BEAKER) (test code 0.7 mg/dL 0.2-1.2 = 377) BILIRUBIN DIRECT (BEAKER) (test 0.5 mg/dL 0.1-0.5 code = 706) ALKALINE PHOSPHATASE (BEAKER) (test 95 U/L 40-150 code = 346) AST (SGOT) (BEAKER) (test code = 28 U/L 5-34 353) ALT (SGPT) (BEAKER) (test code = 29 U/L 6-55 347) Software Controls Engineer ID - BSBASIC METABOLIC [id number] 20:25:00 Test Item Value Reference Range Interpretation Comments SODIUM (BEAKER) 136 meq/L 136-145 (test code = 381) POTASSIUM (BEAKER) 4.4 meq/L 3.5-5.1 (test code = 379) CHLORIDE (BEAKER) 99 meq/L 98-107 (test code = 382) CO2 (BEAKER) (test 24 meq/L 22-29 code = 355) BLOOD UREA NITROGEN 20 mg/dL 7-21 (BEAKER) (test code = 354) CREATININE (BEAKER) 1.21 mg/dL 0.57-1.25 (test code = 358) GLUCOSE RANDOM 161 mg/dL 70-105 H (BEAKER) (test code = 652) CALCIUM (BEAKER) 8.9 mg/dL 8.4-10.2 (test code = 697) EGFR (BEAKER) (test 57 mL/min/1.73 ESTIMA MANDO GFR IS code = 1092) sq m NOT ACCURATE CREATININE CLEARANCE IN PREDICTING GLOMERULAR FILTRATION RATE . ESTIMATED GFR I S NOT APPLICABLE FOR DIALYSIS PATIEN TS. Software Controls Engineer ID - [id number] 20:24:00 Test Item Value Reference Range Interpretation Comments PARTIAL THROMBOPLASTIN TIME 35.2 seconds 22.5-36.0 (BEAKER) (test code = 760) 6 hours after starting heparin infusion and as indicated per sliding scale PT/[id number] 20:24:00 Test Item Value Reference Range Interpretation Comments PROTIME (BEAKER) (test code = 14.7 seconds 11.9-14.2 H 759) INR (BEAKER) (test code = 370) 1.2 <=5.9 PARTIAL THROMBOPLASTIN TIME 33.6 seconds 22.5-36.0 (BEAKER) (test code = 760) Effective 11/01/2018: PT Reference Range ChangeNew: 11.9-14.2 Previous: 11.7- 14.7RECOMMENDED COUMADIN/WARFARIN INR THERAPY RANGESSTANDARD DOSE: 2.0-3.0 Includes: PROPHYLAXIS for venous thrombosis, systemic embolization; TREATMENT for venous thrombosis and/or pulmonary embolus.HIGH RISK: Target INR is2.5-3.5 for patients wiht mechanical heart valves.Prior to initiating heparinPrior to initiating [id number] 20:24:00 Test Item Value Reference Range Interpretation Comments PARTIAL THROMBOPLASTIN TIME 33.6 seconds 22.5-36.0 (BEAKER) (test code = 760) LACTIC ACID, [id number] 20:20:00 Test Item Value Reference Range Interpretation Comments LACTATE BLOOD VENOUS 2.26 mmol/L 0.50-2.20 H Specime n slightly (2) (BEAKER) (test hemolyzed code = 2872) Software Controls Engineer ID - BSRAD, CHEST, 1 VIEW, NON [id number] 20:14:00Reason for exam:- >SHORTNESS OF BREATHReason for exam:->CONGESTIVE HEART FAILUREShould this be performed at the bedside?->YesFINAL REPORT Chest one view. Clinical history: Shortness of breath. Congestive heart failure Comparison: None. Technique: A single frontal view of the chest was obtained. Findings: The heart is normal in size. The aorta is tortuous and atherosclerotic. There are diffuse bilateral airspace opacities which may represent pulmonary edema and/or pneumonia. There are small bilateral pleural effusions, right greater than left. There is no pneumothorax. The bony thorax is demineralized. Signed: Mario Bills MDReport Verified Date/Time: 11/02/2019 20:14:40 CBC W/PLT COUNT & AUTO [id number] 20:08:00 Test Item Value Reference Range Interpretation Comments WHITE BLOOD CELL COUNT (BEAKER) 36.0 K/ L 3.5-10.5 H (test code = 775) RED BLOOD CELL COUNT (BEAKER) 4.66 M/ L 4.63-6.08 (test code = 761) HEMOGLOBIN (BEAKER) (test code = 13.7 GM/DL 13.7-17.5 410) HEMATOCRIT (BEAKER) (test code = 42.2 % 40.1-51.0 411) MEAN CORPUSCULAR VOLUME (BEAKER) 90.6 fL 79.0-92.2 (test code = 753) MEAN CORPUSCULAR HEMOGLOBIN 29.4 pg 25.7-32.2 (BEAKER) (test code = 751) MEAN CORPUSCULAR HEMOGLOBIN CONC 32.5 GM/DL 32.3-36.5 (BEAKER) (test code = 752) RED CELL DISTRIBUTION WIDTH 13.6 % 11.6-14.4 (BEAKER) (test code = 412) PLATELET COUNT (BEAKER) (test 311 K/CU MM 150-450 code = 756) MEAN PLATELET VOLUME (BEAKER) 10.0 fL 9.4-12.4 (test code = 754) NUCLEATED RED BLOOD CELLS 0 /100 WBC 0-0 (BEAKER) (test code = 413)
[2019-12-02 11:37] VITALS: BMI 18.8
[2019-12-02 13:21] LABS: Urine Appearance CLOUDY; Urine Bilirubin NEGATIVE (NEG); Urine Blood TRACE (NEG); Urine Color YELLOW; Urine Glucose NEGATIVE (NEG); Urine Protein NEGATIVE (NEG); Urine Urobilinogen 0.2 mg/dL (0.2-1.0); Urine pH 6.5 (5.0-7.0)
[2019-12-02 13:58] LABS: Urine Bacteria LOADED /HPF (NONE SEEN); Urine Culture Reflex Order NOT NEEDED; Urine RBC <5 /HPF (NONE SEEN)
[2019-12-02] MEDS ORDERED: DOCUSATE NA/SENNA CONC 1 TAB PO PRN (13:59)
[2019-12-02] MEDS: NYSTATIN PWDR 100000 UNIT/GM TOP SCH (19:18)
[2019-12-02] MEDS: CRANBERRY FRUIT EXTRACT 200 MG CAP PO SCH (19:18)
[2019-12-02] MEDS: APIXABAN 2.5 MG TABLET PO SCH (19:18)
[2019-12-03 05:54] LABS: Absolute Lymphocytes (CBC) 0.9 K/uL (0.7-4.9); Basophils % 0.7 % (0-1.3); Hematocrit 30.9 % (39.6-49.0); Lymphocytes % 16.7 % (15.3-44.8); MPV 8.8 fL (7.6-11.3)
[2019-12-03 06:08] LABS: Albumin 1.8 g/dL (3.4-5.0); Magnesium 2.1 mg/dL (1.8-2.4); Potassium 3.2 mmol/L (3.5-5.1); Prealbumin 7.1 mg/dL (20-40)
[2019-12-03] MEDS: BUMETANIDE 1 MG TABLET PO SCH (08:00)
[2019-12-03] MEDS ORDERED: PROMOD 30 ML DOSE PO SCH (08:00)
[2019-12-03] MEDS ORDERED: DUTASTERIDE 0.5 MG GEL CAP PO SCH (08:00)
[2019-12-03] MEDS: CLOPIDOGREL 75 MG TABLET PO SCH (08:37)
[2019-12-03] MEDS: CRANBERRY FRUIT EXTRACT 200 MG CAP PO SCH ×3 (08:37→19:20)
[2019-12-03] MEDS: APIXABAN 2.5 MG TABLET PO SCH ×3 (08:38→19:20)
[2019-12-03] MEDS: NYSTATIN PWDR 100000 UNIT/GM TOP SCH ×2 (08:38→19:14)
[2019-12-03] MEDS ORDERED: POTASSIUM CL SA 10 MEQ TAB PO ONE (09:52)
--- NOTE | 2019-12-03 10:35 | R.HP ---
FACILITY: [facility] ENCOUNTER DATE AND TIME: 12/03/2019 10:10 (CDT) MR#: [id number] NAME ARTHUR NUNEZ ADDRESS: [address] [place] [address] CITY: [place] ZIP [id number] PHONE: DATE OF : 1930 AGE: 89 SSN# [id number] GENDER: Male DEXTERITY Right-handed MARITAL STATUS RACE White PRE-HOSPITAL LIVING SETTING 01 - Home (private home/apt. board/care, assisted living, residential, transitional living) PRE-HOSPITAL LIVING WITH Family/Relatives ENCOUNTER PHYSICIAN: Dr. Maxi Linares M.D. REFERRING DOCTOR: Dr Arias Almanza DATE OF ADMISSION: 12/02/2019 09:10 (CDT) REFERRING FACILITY Doctor Office HOME TYPE AND DETAILS: Type of home: single family house # of levels in the residence: 0 # of steps to enter the residence: 1 # of steps within the residence: 0 ONSET DATE: 11/02/2019 PRIMARY DIAGNOSIS-RELATED SURGERIES: Patient had 2 Thoracentesis while in hospital and an Aortic valve replacement. HISTORY OF PRESENT ILLNESS (HPI): Pt. is a 89 yo Right-handed white male. On 11/02/2019 he was admitted to [facility] in the [facility] with diagnosis Aortic Stenosis, Acute Respi ratory Failure. His impairment category is Cardiac 09 - Cardiac Disorders (09). Pre-morbidly, Pt. was independent/mod-I in Transfers Control, Self-Care, and Locomotion; and he had g ood Balance, Safety Awareness, Social Cognition, Communication, and Sphincter Control. Currently, he has deficits of Transfers Control, Balance, Locomotion, Safety Awareness, Self-Care, an d Social Cognition. Pt. is now referred to [facility] for acute in-patient rehabilitation in order to maximize patient's functional independence in activities of daily living, strength, ROM, and mobi lity. Patient has realistic goal of being discharged at assistance level 6-[place] to reside at Home with Fam omar/Relatives. MEDICATION ALLERGIES: Plavix ENVIRONMENTAL ALLERGIES: None Known - Substance Allergies None Known - Other Allergies None Known PAST MEDICAL HISTORY: HTN CVA Aortic Stenosis Cardiogenic shock (R57.0) Squamous Cell Carcinoma of Lung PAST SURGICAL HISTORY: Bronchoscopy x 2 FAMILY HISTORY: Family history is not contributory. SOCIAL HISTORY: - Home Living Family/Relatives REVIEW OF SYSTEMS: - Gen No Chills Fatigue No Fever - Eyes No Double Vision No itchiness - ENMT No Difficulty Swallowing - CVS Chest Discomfort No Chest Pain Fatigue No Weight Gain - Resp No Cough No Shortness of Breath - GI Continent No Abdominal Pain Constipation No Diarrhea - Continent No Kidney Pain No Painful Urination No Urinary Urgency - MSK No Joint Pain Muscle Cramps Stiffness - Skin No Itching No Rash No Suspicious Lesions - Neuro Coordination Difficulty No Difficulty with Concentration No Memory Loss No Seizures Weakness - Psych No Anxiety No Depression No HIV Exposure No Persistent Infections No Seasonal Allergies - Endo No Cold/Heat Intolerance No Excessive Hunger No Excessive Thirst No Excessive Urination PHYSICAL EXAM - Gen Alert and awake Lying in bed No apparent distress Oriented to: person, time, and place - Skin No skin breakdown. Normacephalic - Eyes No abnormalities - ENMT No abnormalities - Neck No abnormalities - CVS RRR - Chest Clear - Resp No wheezing - Abd Soft - GI + bowel sounds Deferred - No abnormalities - Ext Mild bilateral lower extremity edema. - MSK 4+/5 weakness in both lower extremities. - Neuro No focal deficits VITAL SIGNS Temperature: 97.4 F SBP/DBP: 113/57 Pulse: 70 Resp: 16 Oxygen saturation: 98 % NURSING: - Shower allowing shower ACTIVITIES OOB only with supervision QI SCORES: - Self-Care A. Eating 06-Independent B. Oral hygiene 10-Not attempted due to environmental limitations C. Toileting hygiene 04-Supervision or touching assistance E. Shower/bathe self 01-Dependent F. Upper body dressing 04-Supervision or touching assistance G. Lower body dressing 03-Partial/moderate assistance H. Putting on/taking off footwear 88-Not attempted due to medical condition or safety concerns - Mobility A. Roll left and right 04-Supervision or touching assistance B. Sit to lying 04-Supervision or touching assistance C. Lying to sitting on side of bed 04-Supervision or touching assistance D. Sit to stand 04-Supervision or touching assistance E. Chair/eqb-pn-ajelf transfer 04-Supervision or touching assistance F. Toilet transfer 04-Supervision or touching assistance G. Car transfer 88-Not attempted due to medical condition or safety concerns I. Walk 10 feet 04-Supervision or touching assistance J. Walk 50 feet with two turns 10-Not attempted due to environmental limitations K. Walk 150 feet 88-Not attempted due to medical condition or safety concerns L. Walking 10 feet on uneven surfaces 04-Supervision or touching assistance M. 1 step (curb) 88-Not attempted due to medical condition or safety concerns N. 4 steps 88-Not attempted due to medical condition or safety concerns O. 12 steps 88-Not attempted due to medical condition or safety concerns P. Picking up object 03-Partial/moderate assistance - Bladder and Bowel Bladder continence 1-Stress incontinence only Bowel continence 1-Occasionally incontinent - Endurance Good - Balance Good - Safety Awareness Good CURRENT FUNC. DEFICITS: Mobility and Self-Care MEDICATIONS: - Other See attached MAR (Medication Administration Record) ASSESSMENT: Pt. is a 89 yo Right-handed white male.On 11/02/2019 he was admitted to [facility] in the [facility] with diagnosis Aortic Stenosis, Acute Respiratory Failure.His impairment category is Cardiac 09 - Cardia c Disorders (09).Pre-morbidly, Pt. was independent/mod-I in Transfers Control, Self-Care, and Locomot ion; and he had good Balance, Safety Awareness, Social Cognition, Communication, and Sphincter Contro l.Currently, he has deficits of Transfers Control, Balance, Locomotion, Safety Awareness, Self-Care, and Social Cognition.Pt. is now referred to [facility] for acute in-patient re habilitation in order to maximize patient's functional independence in activities of daily living, st rength, ROM, and mobility.- Rehab Goal Patient has realistic goal of being discharged at assistance level 6-[place] to reside at Home with Fam omar/Relatives. REHAB PLAN: - Physical Therapy Inability to transfer - to improve, our physical therapists will perform initial evaluation of pt's s tatus upon admission and devise an individualized program for Bed mobility Need for home safety evaluation - to improve, our physical therapists will perform initial evaluation of pt's status upon admission and devise an individualized program for Home Evaluation Need in caregiver upon discharge - to improve, our physical therapists will perform initial evaluatio n of pt's status upon admission and devise an individualized program for Caregiver Training Edema - to improve, our physical therapists will perform initial evaluation of pt's status upon admi ssion and devise an individualized program for Elevation Training, and Lymphedema Therapy New precaution - to improve, our physical therapists will perform initial evaluation of pt's status u celia admission and devise an individualized program for Patient precaution education Poor balance - to improve, our physical therapists will perform initial evaluation of pt's status upo n admission and devise an individualized program for Balance Training Achieving independence - to improve, our physical therapists will perform initial evaluation of pt's status upon admission and devise an individualized program for Community Reintegration Activities - Occupational Therapy ADL deficits - to improve, our occupation therapists will perform initial evaluation of pt's status u celia admission and devise an individualized program for Bathing, Bed mobility, Community Reintegration , Cooking, Dressing, Eating, Fine Motor Skills, Grooming, Homemaking, Kitchen Mobility, Laundry, Tabitha ent Education, Safety Awareness, Splinting - Positioning, Transfers(Toilet, Tub, Shower), and Wheel C hair Management Cognitive deficits - to improve, our occupation therapists will perform initial evaluation of pt's st atus upon admission and devise an individualized program for Cognition - orientation Need for physician primary care sports medicine - to improve, our occupation therapists will perform initial evaluation of pt's s tatus upon admission and devise an individualized program for Caregiver Training MEDICAL PLAN: - Diet Type Start Regular - Diet - Liquid Texture Start Regular - Tube Feed Start N/A - Other See attached MAR (Medication Administration Record) - Diet - Solid Texture Regular - Shower shower DISCHARGE PLAN: - Estimated Length of Stay (days) 10. - Consensus on plan Discharge plan has been discussed with primary caregiver. Patient/Family is in agreement with the lily n. Primary caregiver is in agreement with the plan. - Patient/Family Goals Return home with assistance. - Planned Living Setting Upon Discharge Home, to live with Family/Relatives. SIGNATURE PANEL: (CDT)
--- NOTE | 2019-12-03 10:38 | PAPE ---
PATIENT: [facility] MR# [id number] REFERRING DOCTOR Dr Arias Almanza EVALUATION DATE AND TIME 12/03/2019 10:35 (CDT) NAME ARTHUR NUNEZ DATE OF 1930 AGE 89 PHONE N# [id number] GENDER male EVALUATING PHYSICIAN Dr. Maxi Linares M.D. ADMISSION DIAGNOSIS: Aortic Stenosis, Acute Respiratory Failure ONSET DATE 11/02/2019 POST-ADMISSION FUNCTIONAL/MEDICAL STATUS: - Walking Same score based on distance walked: 1(<=50ft) STATUS CHANGE EVALUATION: No change in Functional or Medical Status is identified compared with Pre-Admission screening. PATIENT NEEDS CLOSE MEDICAL SUPERVISION BY A REHABILITATION PHYSICIAN FOR: Coordination of Treatment Team PATIENT REQUIRES 24X7 REHAB NURSING FOR MEDICAL AND FUNCTIONAL MGT. OF THE FOLLOWING DEFICITS: Disease Management Medication Management Patient/Family Education Providing Safe Environment PATIENT REQUIRES INTENSIVE, COORDINATED INTERDISCIPLINARY APPROACH TO REHAB: Arranging Home Equipment/Services Discharge Planning Family Intervention/Training Sciences Dean/Case Management LIST OF IDENTIFIED AND POTENTIAL PROBLEMS: Alteration in leisure activities Infection, Actual or Potential Mobility Impaired Pain, Alteration in Comfort Self Care Deficit Skin Integrity, Actual or Potential Urinary Tract Infection (UTI), Actual or Potential PATIENT COULD BE AT RISK FOR COMPLICATIONS FROM ADVERSE MEDICAL CONDITIONS DUE TO HIS/HER COMORBIDITI ES AND THE RIGORS OF THE INTENSIVE REHABILLITATION PROGRAM. METHODS OR INTERVENTIONS TO AVOID COMPLIC ATIONS INCLUDE: - Infection Clinical staff to assess and manage the signs and symptoms of infection including fever, redness, war mth, etc. - Urinary Tract Infection - Falls Patient will be evaluated for Fall Precautions and will be placed on Fall Precautions as indicated pe r protocol. - Skin Breakdown Nursing will assess skin daily using assessment tool and will place on Skin Breakdown Precautions as indicated per protocol. - Pain Clinical staff may employ non-medication methods such as massage, distraction, decrease stimulus, etc . as needed. Clinical staff will assess patient's pain level every shift per protocol to assess and e nsure pain management effectiveness. Medications will be given and the pain level re-assessed. PRELIMINARY PLAN OF CARE: - Physical Therapy Patient needs Physical Therapy for a daily minimum of 1.5 hours at least 5 out of 7 days, to improve: Mobility, Strengthening, Transfers, Stretching, ROM, Endurance, Ability to manage stairs, Gait, and Balance. - Speech Therapy Patient needs Speech Therapy for a daily minimum of 0.5 hours at least 5 out of 7 days, to improve: S wallowing, Cognition, Language Skills, and Compensatory Strategies. - Rehabilitation Nursing Patient requires 24x7 Rehabilitation Nursing for: Pain Issues, Identifying and preventing risk factor s, Monitoring and reporting current medical conditions, Assisting with ambulation and transfer, Isis ting with all ADL-s, Teaching patients about disease process and medications, Family teaching, Provid ing safe environment, Bowel and Bladder Issues, Skin Integrity, and Medication Management. Patient needs Sciences Dean and/or Case Management for: Discharge Planning, Arranging Home Equipmen t or Services, and Family Interventions. - Dietary and Nutrition Services Patient needs Dietary and Nutrition Services for: Adequate Nutrition, Nutritional Supplements, and Nu tritional Education. - Occupational Therapy Patient needs Occupational Therapy for a daily minimum of 1.5 hours at least 5 out of 7 days, to impr ove Activities of Daily Living, including: Eating, Grooming, Bathing, Dressing, Toileting, Toilet Tra nsfers, Community Reintegration, Higher functional activities, Adaptive Equipment, Splinting, Househo ld Tasks, and Other activities as determined. QI SCORES: - Self-Care A. Eating 06-Independent B. Oral hygiene 10-Not attempted due to environmental limitations C. Toileting hygiene 04-Supervision or touching assistance E. Shower/bathe self 01-Dependent F. Upper body dressing 04-Supervision or touching assistance G. Lower body dressing 03-Partial/moderate assistance H. Putting on/taking off footwear 88-Not attempted due to medical condition or safety concerns - Mobility A. Roll left and right 04-Supervision or touching assistance B. Sit to lying 04-Supervision or touching assistance C. Lying to sitting on side of bed 04-Supervision or touching assistance D. Sit to stand 04-Supervision or touching assistance E. Chair/zqw-th-plppr transfer 04-Supervision or touching assistance F. Toilet transfer 04-Supervision or touching assistance G. Car transfer 88-Not attempted due to medical condition or safety concerns I. Walk 10 feet 04-Supervision or touching assistance J. Walk 50 feet with two turns 10-Not attempted due to environmental limitations K. Walk 150 feet 88-Not attempted due to medical condition or safety concerns L. Walking 10 feet on uneven surfaces 04-Supervision or touching assistance M. 1 step (curb) 88-Not attempted due to medical condition or safety concerns N. 4 steps 88-Not attempted due to medical condition or safety concerns O. 12 steps 88-Not attempted due to medical condition or safety concerns P. Picking up object 03-Partial/moderate assistance - Bladder and Bowel Bladder continence 1-Stress incontinence only Bowel continence 1-Occasionally incontinent - Endurance Good - Balance Good - Safety Awareness Good POTENTIAL FUNCTIONAL GOALS FOR PATIENT TO ACHIEVE BY DISCHARGE: - Safety Precaution Patient will remain free from falls or injury at time of discharge. - Bed Mobility Patient will perform bed mobility at 4-Hugo level of assistance. - Transfers Patient will complete transfers from bed to chair at 4-Hugo level of assistance. - Mobility Patient will ambulate 150 ft with 4-Hugo level of assistance with RW. PATIENT REHAB POTENTIAL Tyler NUNEZ is able and expected to receive 3 hours of individualized therapy daily on at least 5 of e very 7 days Tyler NUNEZ's prognosis for significant practical improvement within a reasonable period of time appea rs Good Expected level of measurable improvement will be of a practical value to Tyler NUNEZ's functional capa city or adaptations to impairments Has a viable Discharge Plan Medically appropriate; condition is sufficiently stable to participate in intensive rehab program DISCHARGE PLAN: - Estimated Length of Stay (days) 10. - Consensus on plan Discharge plan has been discussed with primary caregiver. Patient/Family is in agreement with the lily n. Primary caregiver is in agreement with the plan. - Patient/Family Goals Return home with assistance. - Planned Living Setting Upon Discharge Home, to live with Family/Relatives. CONCLUSION ON REHABILITATION NECESSITY: I have evaluated patient's pre-admission functional status and, comparing it to the patient's post-ad mission functional status now, I conclude that the pre-admission assessment was accurate. Patient's c ondition on admission supports the medical necessity of admission to IRF. It is safe to proceed with patient's therapy program. SIGNATURE PANEL: (CDT)
[2019-12-03] MEDS: ACETAMINOPHEN 500 MG TAB PO PRN (15:35)
[2019-12-03] MEDS: POTASSIUM CL SA 10 MEQ TAB PO SCH (19:13)
[2019-12-03] MEDS: JUVEN PACKET PO SCH ×2 (19:14→19:20)
[2019-12-03] MEDS: ENSURE ENLIVE 237 ML CAN PO SCH ×2 (19:14→19:20)
[2019-12-04] MEDS: BUMETANIDE 1 MG TABLET PO SCH (08:00)
[2019-12-04] MEDS: JUVEN PACKET PO SCH ×2 (08:00→19:42)
[2019-12-04] MEDS: CLOPIDOGREL 75 MG TABLET PO SCH (09:13)
[2019-12-04] MEDS: FERROUS SULFATE 325 MG TAB PO SCH (09:14)
[2019-12-04] MEDS: APIXABAN 2.5 MG TABLET PO SCH ×2 (09:14→19:41)
[2019-12-04] MEDS: CRANBERRY FRUIT EXTRACT 200 MG CAP PO SCH ×2 (09:14→19:41)
[2019-12-04] MEDS: ENSURE ENLIVE 237 ML CAN PO SCH ×2 (09:14→19:42)
[2019-12-04] MEDS: POTASSIUM CL SA 10 MEQ TAB PO SCH ×2 (09:15→19:41)
[2019-12-04] MEDS: AVODART 0.5 MG PO SCH (09:17)
--- NOTE | 2019-12-04 09:57 | RAD REPORT ---
EXAM DESCRIPTION: RAD - Barium Swallow Modified - 12/04/2019 9:37 am CLINICAL HISTORY: CVA, dysphagia, cough FINDINGS: Laryngeal penetration: cleared with thin, nectar, thin with barium tablet. Aspiration with thin liquid (large sip) cued cough. Mild with thin, nectar, moderate with honey and pudding pharyngeal residue in the vallecula, pyriform, and posterior wall. 2 sec swallow delay, decre ased pharyngeal constriction, reduced hyolaryngeal protraction. Osteophytes noted at C6-C7. Fluoroscopy time 3.2 minutes. Seventeen fluoroscopic spot images obtained
[2019-12-04] MEDS: ACETAMINOPHEN 500 MG TAB PO PRN ×2 (10:33→19:41)
[2019-12-04] MEDS: NYSTATIN PWDR 100000 UNIT/GM TOP SCH ×2 (10:34→19:41)
[2019-12-04] MEDS: Meropenem 1,000 MG in NA CHLORIDE 0.9% 100 ML IV SCH ×2 (10:35→17:37)
[2019-12-04] MEDS: LIDOCAINE 4% PATCH TOP SCH (14:54)
--- NOTE | 2019-12-04 17:43 | R.PN ---
ENCOUNTER DATE AND TIME: 12/04/2019 17:36 (CDT) NAME ARTHUR NUNEZ DATE OF : 1930 DATE OF ADMISSION: 12/02/2019 09:10 (CDT) Aortic Stenosis, Acute Respiratory FailureCHIEF COMPLAINT: Aortic stenosis, acute respiratory failure, debility SUBJECTIVE: Pt denied any Shortness of Breath. Pt denied any depression. WBC 5.2, Hgb 10.2, prealbumin 7.1. He is on ferrous sulfate, ensure enlive and julieta bid. VITAL SIGNS Temperature: 97.8 F SBP/DBP: 96/52 Pulse: 68 Resp: 16 Oxygen saturation: 98 % MEDICATION ALLERGIES: Plavix ENVIRONMENTAL ALLERGIES: None Known - Substance Allergies None Known - Other Allergies None Known NURSING: - Shower allowing shower ACTIVITIES OOB only with supervision THERAPIES: - Dietary and Nutrition Adequate Nutrition. Nutritional Education. Nutritional Supplements. PHYSICAL EXAM - Gen Alert and awake Lying in bed No apparent distress Oriented to: person, time, and place - Skin No skin breakdown. Normacephalic - Eyes No abnormalities - ENMT No abnormalities - Neck No abnormalities - CVS RRR - Chest Clear - Resp No wheezing - Abd Soft - GI + bowel sounds Deferred - No abnormalities - Ext Mild bilateral lower extremity edema. - MSK 4+/5 weakness in both lower extremities. - Neuro No focal deficits ASSESSMENT: Pt. is a 89 yo Right-handed white male.On 11/02/2019 he was admitted to [facility] in the [facility] with diagnosis Aortic Stenosis, Acute Respiratory Failure.His impairment category is Cardiac 09 - Cardia c Disorders (09).Pre-morbidly, Pt. was independent/mod-I in Transfers Control, Self-Care, and Locomot ion; and he had good Balance, Safety Awareness, Social Cognition, Communication, and Sphincter Contro l.Currently, he has deficits of Transfers Control, Balance, Locomotion, Safety Awareness, Self-Care, and Social Cognition.Pt. is now referred to [facility] for acute in-patient re habilitation in order to maximize patient's functional independence in activities of daily living, st rength, ROM, and mobility.- Rehab Goal Patient has realistic goal of being discharged at assistance level 6-[place] to reside at Home with Fam omar/Relatives. MDM/PLAN: - Physical Therapy Inability to transfer - to improve, our physical therapists will perform initial evaluation of pt's status upon admission and devise an individualized program for Bed mobility Need for home safety evaluation - to improve, our physical therapists will perform initial evaluatio n of pt's status upon admission and devise an individualized program for Home Evaluation Need in caregiver upon discharge - to improve, our physical therapists will perform initial evaluati on of pt's status upon admission and devise an individualized program for Caregiver Training Edema - to improve, our physical therapists will perform initial evaluation of pt's status upon admis giovanni and devise an individualized program for Elevation Training, and Lymphedema Therapy New precaution - to improve, our physical therapists will perform initial evaluation of pt's status upon admission and devise an individualized program for Patient precaution education Poor balance - to improve, our physical therapists will perform initial evaluation of pt's status up on admission and devise an individualized program for Balance Training Achieving independence - to improve, our physical therapists will perform initial evaluation of pt's status upon admission and devise an individualized program for Community Reintegration Activities - Occupational Therapy ADL deficits - to improve, our occupation therapists will perform initial evaluation of pt's status upon admission and devise an individualized program for Bathing, Bed mobility, Community Reintegratio n, Cooking, Dressing, Eating, Fine Motor Skills, Grooming, Homemaking, Kitchen Mobility, Laundry, Pat ient Education, Safety Awareness, Splinting - Positioning, Transfers(Toilet, Tub, Shower), and Wheel Chair Management Cognitive deficits - to improve, our occupation therapists will perform initial evaluation of pt's s tatus upon admission and devise an individualized program for Cognition - orientation Need for child care aide - to improve, our occupation therapists will perform initial evaluation of pt's status upon admission and devise an individualized program for Caregiver Training - Other See attached MAR (Medication Administration Record) - Diet Type Continue Regular - Diet - Liquid Texture Continue Regular - Tube Feed Continue N/A - Diet - Solid Texture Continue Regular - Shower allowing shower FUNCTIONAL STATUS: UPDATED AT WEEKLY TEAM CONFERENCE - Walking Same score based on distance walked: 1(<=50ft) FUNCTIONAL STATUS: - Self-Care A. Eating Tamica B. Grooming Tamica C. Bathing Hugo D. Dressing - Upper Hugo E. Dressing - Lower modA F. Toileting Hugo - Sphincter Control G. Bladder control sup H. Bowel control sup - Transfers Control I. Bed/Chair/Wheelchair modA J. Toilet Hugo K. Tub/Shower modA - Locomotion L. Walk/Wheelchair (B) Hugo M. Stairs maxA - Communication N. Comprehension (B) sup O. Expression (B) Tamica - Social Cognition P. Social Interaction Ind Q. Problem Solving Tamica R. Memory sup - Endurance Fair - Balance Fair - Safety Awareness Fair QI SCORES: - Self-Care A. Eating 06-Independent B. Oral hygiene 10-Not attempted due to environmental limitations C. Toileting hygiene 04-Supervision or touching assistance E. Shower/bathe self 01-Dependent F. Upper body dressing 04-Supervision or touching assistance G. Lower body dressing 03-Partial/moderate assistance H. Putting on/taking off footwear 88-Not attempted due to medical condition or safety concerns - Mobility A. Roll left and right 04-Supervision or touching assistance B. Sit to lying 04-Supervision or touching assistance C. Lying to sitting on side of bed 04-Supervision or touching assistance D. Sit to stand 04-Supervision or touching assistance E. Chair/vod-ch-soygo transfer 04-Supervision or touching assistance F. Toilet transfer 04-Supervision or touching assistance G. Car transfer 88-Not attempted due to medical condition or safety concerns I. Walk 10 feet 04-Supervision or touching assistance J. Walk 50 feet with two turns 10-Not attempted due to environmental limitations K. Walk 150 feet 88-Not attempted due to medical condition or safety concerns L. Walking 10 feet on uneven surfaces 04-Supervision or touching assistance M. 1 step (curb) 88-Not attempted due to medical condition or safety concerns N. 4 steps 88-Not attempted due to medical condition or safety concerns O. 12 steps 88-Not attempted due to medical condition or safety concerns P. Picking up object 03-Partial/moderate assistance - Bladder and Bowel Bladder continence 1-Stress incontinence only Bowel continence 1-Occasionally incontinent - Endurance Good - Balance Good - Safety Awareness Good CURRENT FUNC. DEFICITS: Mobility and Self-Care SIGNATURE PANEL: (CDT)
[2019-12-05] MEDS: ACETAMINOPHEN 500 MG TAB PO PRN ×2 (00:10→13:49)
[2019-12-05] MEDS: Meropenem 1,000 MG in NA CHLORIDE 0.9% 100 ML IV SCH ×3 (00:12→17:26)
[2019-12-05] MEDS: BUMETANIDE 1 MG TABLET PO SCH (08:00)
[2019-12-05] MEDS: JUVEN PACKET PO SCH ×2 (08:00→19:18)
[2019-12-05] MEDS: NYSTATIN PWDR 100000 UNIT/GM TOP SCH ×2 (08:00→19:18)
--- NOTE | 2019-12-05 10:11 | RAD REPORT ---
EXAM DESCRIPTION: RAD - Chest Single View - 12/05/2019 10:04 am CLINICAL HISTORY: Productive Cough Chest pain. COMPARISON: Barium Swallow Modified dated 12/04/2019 FINDINGS: Portable technique limits examination quality. 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 The heart is mildly enlarged in size. No displaced fractures. IMPRESSION: Right lower lobe pneumonia.
[2019-12-05 10:23] LABS: Absolute Lymphocytes (CBC) 0.4 K/uL (0.7-4.9); Basophils % 0.5 % (0-1.3); Hematocrit 32.9 % (39.6-49.0); Lymphocytes % 8.9 % (15.3-44.8); MPV 8.9 fL (7.6-11.3); RBC Red Blood Cell Count 3.79 M/uL (4.33-5.43)
[2019-12-05 10:38] LABS: Potassium 4.3 mmol/L (3.5-5.1)
[2019-12-05] MEDS: POTASSIUM CL SA 10 MEQ TAB PO SCH ×2 (10:40→19:18)
[2019-12-05] MEDS: CRANBERRY FRUIT EXTRACT 200 MG CAP PO SCH ×2 (10:40→19:18)
[2019-12-05] MEDS: FERROUS SULFATE 325 MG TAB PO SCH (10:40)
[2019-12-05] MEDS: CLOPIDOGREL 75 MG TABLET PO SCH (10:40)
[2019-12-05] MEDS: ENSURE ENLIVE 237 ML CAN PO SCH ×2 (10:42→19:18)
[2019-12-05] MEDS: AVODART 0.5 MG PO SCH (10:43)
[2019-12-05] MEDS: APIXABAN 2.5 MG TABLET PO SCH ×2 (10:44→19:18)
[2019-12-05] MEDS: LIDOCAINE 4% PATCH TOP SCH ×2 (10:44→13:52)
[2019-12-06] MEDS: Meropenem 1,000 MG in NA CHLORIDE 0.9% 100 ML IV SCH ×3 (00:49→16:20)
[2019-12-06 06:50] LABS: Absolute Lymphocytes (CBC) 0.7 K/uL (0.7-4.9); Basophils % 0.7 % (0-1.3); Hematocrit 31.2 % (39.6-49.0); Lymphocytes % 15.9 % (15.3-44.8); MPV 8.5 fL (7.6-11.3); RBC Red Blood Cell Count 3.57 M/uL (4.33-5.43)
[2019-12-06] MEDS: LIDOCAINE 4% PATCH TOP SCH (07:02)
[2019-12-06 07:09] LABS: Albumin 1.9 g/dL (3.4-5.0); BUN Blood Urea Nitrogen 19 mg/dL (7-18); Bicarbonate 26 mmol/L (21-32); Glucose Level 92 mg/dL (74-106); Magnesium 2.3 mg/dL (1.8-2.4); Potassium 4.2 mmol/L (3.5-5.1); Prealbumin 5.8 mg/dL (20-40); Sodium Level 144 mmol/L (136-145)
[2019-12-06] MEDS: CRANBERRY FRUIT EXTRACT 200 MG CAP PO SCH (08:00)
[2019-12-06] MEDS: NYSTATIN PWDR 100000 UNIT/GM TOP SCH (08:00)
[2019-12-06] MEDS: AVODART 0.5 MG PO SCH (08:00)
[2019-12-06] MEDS: JUVEN PACKET PO SCH (08:00)
[2019-12-06] MEDS: FERROUS SULFATE 325 MG TAB PO SCH (08:01)
[2019-12-06] MEDS: APIXABAN 2.5 MG TABLET PO SCH (08:01)
[2019-12-06] MEDS: CLOPIDOGREL 75 MG TABLET PO SCH (08:01)
[2019-12-06] MEDS: POTASSIUM CL SA 10 MEQ TAB PO SCH (08:01)
[2019-12-06] MEDS: BUMETANIDE 1 MG TABLET PO SCH (08:01)
[2019-12-06] MEDS: ENSURE ENLIVE 237 ML CAN PO SCH (08:02)
[2019-12-06 08:04] VITALS: BP 107/51
[2019-12-06] MEDS: ACETAMINOPHEN 500 MG TAB PO PRN ×2 (08:10→13:43)
[2019-12-06 08:45] VITALS: TEMP 97.4
--- NOTE | 2019-12-06 18:46 | R.PN ---
ENCOUNTER DATE AND TIME: 12/05/2019 18:24 (CDT) NAME ARTHUR NUNEZ DATE OF : 1930 DATE OF ADMISSION: 12/02/2019 09:10 (CDT) Aortic Stenosis, Acute Respiratory FailureCHIEF COMPLAINT: Aortic stenosis, acute respiratory failure, debility SUBJECTIVE: Pt denied any Shortness of Breath. Pt denied any depression. WBC 5.2, Hgb 10.2, prealbumin 7.1. He is on ferrous sulfate, ensure enlive and julieta bid. He has a cough and chest x-ray showed right lower lobe pneumonia. Further, his UA grew ESBL Ecoli re quiring meropenem. He is doing very well with physical and occupational therapy, ambulation 500' His O2 sat ranges 98 to 100 on room air. VITAL SIGNS Temperature: 97.8 F SBP/DBP: 96/52 Pulse: 68 Resp: 16 Oxygen saturation: 98 % MEDICATION ALLERGIES: Plavix ENVIRONMENTAL ALLERGIES: None Known - Substance Allergies None Known - Other Allergies None Known NURSING: - Shower allowing shower ACTIVITIES OOB only with supervision THERAPIES: - Dietary and Nutrition Adequate Nutrition. Nutritional Education. Nutritional Supplements. PHYSICAL EXAM - Gen Alert and awake Lying in bed No apparent distress Oriented to: person, time, and place - Skin No skin breakdown. Normacephalic - Eyes No abnormalities - ENMT No abnormalities - Neck No abnormalities - CVS RRR - Chest Clear - Resp No wheezing - Abd Soft - GI + bowel sounds Deferred - No abnormalities - Ext Mild bilateral lower extremity edema. - MSK 4+/5 weakness in both lower extremities. - Neuro No focal deficits ASSESSMENT: Pt. is a 89 yo Right-handed white male.On 11/02/2019 he was admitted to [facility] in the [facility] with diagnosis Aortic Stenosis, Acute Respiratory Failure.His impairment category is Cardiac 09 - Cardia c Disorders (09).Pre-morbidly, Pt. was independent/mod-I in Transfers Control, Self-Care, and Locomot ion; and he had good Balance, Safety Awareness, Social Cognition, Communication, and Sphincter Contro l.Currently, he has deficits of Transfers Control, Balance, Locomotion, Safety Awareness, Self-Care, and Social Cognition.Pt. is now referred to [facility] for acute in-patient re habilitation in order to maximize patient's functional independence in activities of daily living, st rength, ROM, and mobility.- Rehab Goal Patient has realistic goal of being discharged at assistance level 6-[place] to reside at Home with Fam omar/Relatives. MDM/PLAN: - Physical Therapy Inability to transfer - to improve, our physical therapists will perform initial evaluation of pt's status upon admission and devise an individualized program for Bed mobility Need for home safety evaluation - to improve, our physical therapists will perform initial evaluatio n of pt's status upon admission and devise an individualized program for Home Evaluation Need in caregiver upon discharge - to improve, our physical therapists will perform initial evaluati on of pt's status upon admission and devise an individualized program for Caregiver Training Edema - to improve, our physical therapists will perform initial evaluation of pt's status upon admi ssion and devise an individualized program for Elevation Training, and Lymphedema Therapy New precaution - to improve, our physical therapists will perform initial evaluation of pt's status upon admission and devise an individualized program for Patient precaution education Poor balance - to improve, our physical therapists will perform initial evaluation of pt's status up on admission and devise an individualized program for Balance Training Achieving independence - to improve, our physical therapists will perform initial evaluation of pt's status upon admission and devise an individualized program for Community Reintegration Activities - Occupational Therapy ADL deficits - to improve, our occupation therapists will perform initial evaluation of pt's status upon admission and devise an individualized program for Bathing, Bed mobility, Community Reintegratio n, Cooking, Dressing, Eating, Fine Motor Skills, Grooming, Homemaking, Kitchen Mobility, Laundry, Pat ient Education, Safety Awareness, Splinting - Positioning, Transfers(Toilet, Tub, Shower), and Wheel Chair Management Cognitive deficits - to improve, our occupation therapists will perform initial evaluation of pt's s tatus upon admission and devise an individualized program for Cognition - orientation Need for care clinician - to improve, our occupation therapists will perform initial evaluation of pt's status upon admission and devise an individualized program for Caregiver Training - Other See attached MAR (Medication Administration Record) - Diet Type Continue Regular - Diet - Liquid Texture Continue Regular - Tube Feed Continue N/A - Diet - Solid Texture Continue Regular - Shower allowing shower FUNCTIONAL STATUS: UPDATED AT WEEKLY TEAM CONFERENCE - Walking Same score based on distance walked: 1(<=50ft) FUNCTIONAL STATUS: - Self-Care A. Eating Tamica B. Grooming Tamica C. Bathing Hugo D. Dressing - Upper Hugo E. Dressing - Lower modA F. Toileting Hugo - Sphincter Control G. Bladder control sup H. Bowel control sup - Transfers Control I. Bed/Chair/Wheelchair modA J. Toilet Hugo K. Tub/Shower modA - Locomotion L. Walk/Wheelchair (B) Hugo M. Stairs maxA - Communication N. Comprehension (B) sup O. Expression (B) Tamica - Social Cognition P. Social Interaction Ind Q. Problem Solving Tamica R. Memory sup - Endurance Fair - Balance Fair - Safety Awareness Fair QI SCORES: - Self-Care A. Eating 06-Independent B. Oral hygiene 10-Not attempted due to environmental limitations C. Toileting hygiene 04-Supervision or touching assistance E. Shower/bathe self 01-Dependent F. Upper body dressing 04-Supervision or touching assistance G. Lower body dressing 03-Partial/moderate assistance H. Putting on/taking off footwear 88-Not attempted due to medical condition or safety concerns - Mobility A. Roll left and right 04-Supervision or touching assistance B. Sit to lying 04-Supervision or touching assistance C. Lying to sitting on side of bed 04-Supervision or touching assistance D. Sit to stand 04-Supervision or touching assistance E. Chair/lhm-qf-osakm transfer 04-Supervision or touching assistance F. Toilet transfer 04-Supervision or touching assistance G. Car transfer 88-Not attempted due to medical condition or safety concerns I. Walk 10 feet 04-Supervision or touching assistance J. Walk 50 feet with two turns 10-Not attempted due to environmental limitations K. Walk 150 feet 88-Not attempted due to medical condition or safety concerns L. Walking 10 feet on uneven surfaces 04-Supervision or touching assistance M. 1 step (curb) 88-Not attempted due to medical condition or safety concerns N. 4 steps 88-Not attempted due to medical condition or safety concerns O. 12 steps 88-Not attempted due to medical condition or safety concerns P. Picking up object 03-Partial/moderate assistance - Bladder and Bowel Bladder continence 1-Stress incontinence only Bowel continence 1-Occasionally incontinent - Endurance Good - Balance Good - Safety Awareness Good CURRENT FUNC. DEFICITS: Mobility and Self-Care SIGNATURE PANEL: (CDT)
--- NOTE | 2019-12-06 18:53 | R.PN ---
ENCOUNTER DATE AND TIME: 12/06/2019 18:46 (CDT) NAME ARTHUR NUNEZ DATE OF : 1930 DATE OF ADMISSION: 12/02/2019 09:10 (CDT) Aortic Stenosis, Acute Respiratory FailureCHIEF COMPLAINT: Aortic stenosis, acute respiratory failure, debility SUBJECTIVE: Pt denied any Shortness of Breath. Pt denied any depression. WBC 5.2, Hgb 10.2, prealbumin 7.1. He is on ferrous sulfate, ensure enlive and julieta bid. He has a cough and chest x-ray showed right lower lobe pneumonia. Further, his UA grew ESBL Ecoli re quiring meropenem. He is doing very well with physical and occupational therapy, ambulation 500' His O2 sat ranges 98 to 100 on room air. His COVID-19 test done on admission 12-02-19, came back positive today 12-06-19. He will be sent to the COVID-19 floor for isolation and continued care including IV antibiotics. I spoke with the patient's son David for 20 minutes explaining the situation. He will discuss his father's code status which jayla uld most likely be DNR given that the patient is positive for COVID-19 with ESBL Ecoli UTI, linda bui cterial pneumonia, lung cancer and age [age] years old. This will be discussed with the patient. VITAL SIGNS Temperature: 97.8 F SBP/DBP: 96/52 Pulse: 68 Resp: 16 Oxygen saturation: 98 % MEDICATION ALLERGIES: Plavix ENVIRONMENTAL ALLERGIES: None Known - Substance Allergies None Known - Other Allergies None Known NURSING: - Shower allowing shower ACTIVITIES OOB only with supervision THERAPIES: - Dietary and Nutrition Adequate Nutrition. Nutritional Education. Nutritional Supplements. PHYSICAL EXAM - Gen Alert and awake Lying in bed No apparent distress Oriented to: person, time, and place - Skin No skin breakdown. Normacephalic - Eyes No abnormalities - ENMT No abnormalities - Neck No abnormalities - CVS RRR - Chest Clear - Resp No wheezing - Abd Soft - GI + bowel sounds Deferred - No abnormalities - Ext Mild bilateral lower extremity edema. - MSK 4+/5 weakness in both lower extremities. - Neuro No focal deficits ASSESSMENT: Pt. is a 89 yo Right-handed white male.On 11/02/2019 he was admitted to [facility] in the [facility] with diagnosis Aortic Stenosis, Acute Respiratory Failure.His impairment category is Cardiac 09 - Cardia c Disorders (09).Pre-morbidly, Pt. was independent/mod-I in Transfers Control, Self-Care, and Locomot ion; and he had good Balance, Safety Awareness, Social Cognition, Communication, and Sphincter Contro l.Currently, he has deficits of Transfers Control, Balance, Locomotion, Safety Awareness, Self-Care, and Social Cognition.Pt. is now referred to [facility] for acute in-patient re habilitation in order to maximize patient's functional independence in activities of daily living, st rength, ROM, and mobility.- Rehab Goal Patient has realistic goal of being discharged at assistance level 6-[place] to reside at Home with Fam omar/Relatives. MDM/PLAN: - Physical Therapy Inability to transfer - to improve, our physical therapists will perform initial evaluation of pt's status upon admission and devise an individualized program for Bed mobility Need for home safety evaluation - to improve, our physical therapists will perform initial evaluatio n of pt's status upon admission and devise an individualized program for Home Evaluation Need in caregiver upon discharge - to improve, our physical therapists will perform initial evaluati on of pt's status upon admission and devise an individualized program for Caregiver Training Edema - to improve, our physical therapists will perform initial evaluation of pt's status upon admi ssion and devise an individualized program for Elevation Training, and Lymphedema Therapy New precaution - to improve, our physical therapists will perform initial evaluation of pt's status upon admission and devise an individualized program for Patient precaution education Poor balance - to improve, our physical therapists will perform initial evaluation of pt's status up on admission and devise an individualized program for Balance Training Achieving independence - to improve, our physical therapists will perform initial evaluation of pt's status upon admission and devise an individualized program for Community Reintegration Activities - Occupational Therapy ADL deficits - to improve, our occupation therapists will perform initial evaluation of pt's status upon admission and devise an individualized program for Bathing, Bed mobility, Community Reintegratio n, Cooking, Dressing, Eating, Fine Motor Skills, Grooming, Homemaking, Kitchen Mobility, Laundry, Pat ient Education, Safety Awareness, Splinting - Positioning, Transfers(Toilet, Tub, Shower), and Wheel Chair Management Cognitive deficits - to improve, our occupation therapists will perform initial evaluation of pt's s tatus upon admission and devise an individualized program for Cognition - orientation Need for resident caregiver - to improve, our occupation therapists will perform initial evaluation of pt's status upon admission and devise an individualized program for Caregiver Training - Other See attached MAR (Medication Administration Record) - Diet Type Continue Regular - Diet - Liquid Texture Continue Regular - Tube Feed Continue N/A - Diet - Solid Texture Continue Regular - Shower allowing shower FUNCTIONAL STATUS: UPDATED AT WEEKLY TEAM CONFERENCE - Walking Same score based on distance walked: 1(<=50ft) FUNCTIONAL STATUS: - Self-Care A. Eating Tamica B. Grooming Tamica C. Bathing Hugo D. Dressing - Upper Hugo E. Dressing - Lower modA F. Toileting Hugo - Sphincter Control G. Bladder control sup H. Bowel control sup - Transfers Control I. Bed/Chair/Wheelchair modA J. Toilet Hugo K. Tub/Shower modA - Locomotion L. Walk/Wheelchair (B) Hugo M. Stairs maxA - Communication N. Comprehension (B) sup O. Expression (B) Tamica - Social Cognition P. Social Interaction Ind Q. Problem Solving Tamica R. Memory sup - Endurance Fair - Balance Fair - Safety Awareness Fair QI SCORES: - Self-Care A. Eating 06-Independent B. Oral hygiene 10-Not attempted due to environmental limitations C. Toileting hygiene 04-Supervision or touching assistance E. Shower/bathe self 01-Dependent F. Upper body dressing 04-Supervision or touching assistance G. Lower body dressing 03-Partial/moderate assistance H. Putting on/taking off footwear 88-Not attempted due to medical condition or safety concerns - Mobility A. Roll left and right 04-Supervision or touching assistance B. Sit to lying 04-Supervision or touching assistance C. Lying to sitting on side of bed 04-Supervision or touching assistance D. Sit to stand 04-Supervision or touching assistance E. Chair/cro-jz-rjngr transfer 04-Supervision or touching assistance F. Toilet transfer 04-Supervision or touching assistance G. Car transfer 88-Not attempted due to medical condition or safety concerns I. Walk 10 feet 04-Supervision or touching assistance J. Walk 50 feet with two turns 10-Not attempted due to environmental limitations K. Walk 150 feet 88-Not attempted due to medical condition or safety concerns L. Walking 10 feet on uneven surfaces 04-Supervision or touching assistance M. 1 step (curb) 88-Not attempted due to medical condition or safety concerns N. 4 steps 88-Not attempted due to medical condition or safety concerns O. 12 steps 88-Not attempted due to medical condition or safety concerns P. Picking up object 03-Partial/moderate assistance - Bladder and Bowel Bladder continence 1-Stress incontinence only Bowel continence 1-Occasionally incontinent - Endurance Good - Balance Good - Safety Awareness Good CURRENT FUNC. DEFICITS: Mobility and Self-Care SIGNATURE PANEL: (CDT)
--- NOTE | 2019-12-12 10:16 | R.DS ---
FACILITY [facility] MR# [id number] NAME ARTHUR NUNEZ ADDRESS [address] [facility] [place] [address] PHONE DATE OF 1930 AGE 89 SSN# [id number] GENDER Male DEXTERITY Right-handed MARITAL STATUS RACE White ENCOUNTER PHYSICIAN Dr. Maxi Linares M.D. REFERRING DOCTOR Dr Arias Almanza REFERRING FACILITY Doctor Office DISCHARGE DIAGNOSIS: - Cardiac 09 - Cardiac Disorders () COVID-19 positive, Aortic Stenosis, Acute Respiratory Failure. DISCHARGE COMORBIDITIES: - N/A The patient was tested for COVID-19 on admission and his results came back positive 4 days later. He has a right lower lobe pneumonia and lung cancer along with cardiac debility. He was discharge to the COVID-19 floor for continued care. DATE OF ADMISSION 12/02/2019 09:10 (CDT) MEDICATION ALLERGIES: Plavix ENVIRONMENTAL ALLERGIES: None Known - Substance Allergies None Known - Other Allergies None Known DISCHARGE MEDICATIONS: Other- ContinueSee attached MAR (Medication Administration Record). NURSING: - Shower allowing shower ACTIVITIES OOB only with supervision THERAPIES: - Dietary and Nutrition Adequate Nutrition Nutritional Education Nutritional Supplements HISTORY OF PRESENT ILLNESS: Pt. is a 89 yo Right-handed white male.On 11/02/2019 he was admitted to [facility] in the [facility] with diagnosis COVID-19 positive, Aortic Stenosis, Acute Respiratory Failure.His impairment category is C ardiac 09 - Cardiac Disorders ().Pre-morbidly, Pt. was independent/mod-I in Transfers Control, Stephanie f-Care, and Locomotion; and he had good Balance, Safety Awareness, Social Cognition, Communication, a nd Sphincter Control.Currently, he has deficits of Transfers Control, Balance, Locomotion, Safety Katherin reness, Self-Care, and Social Cognition.Pt. is now referred to [facility] for acute in-patient rehabilitation in order to maximize patient's functional independence in activities of daily living, strength, ROM, and mobility.- Rehab Goal Patient has realistic goal of being discharged at assistance level 6-Tamica to reside at Home with Fam omar/Relatives. HOSPITAL COURSE: DIET - LIQUID TEXTURE: On 11/30/2019 Pt was upgraded to Regular Diet - Liquid Texture. DIET - SOLID TEXTURE: On 11/30/2019 Pt was upgraded to Regular Diet - Solid Texture. DIET TYPE: On 11/30/2019 Pt was upgraded to Regular Diet Type. TUBE FEED: On 11/30/2019 Pt was changed to N/A Tube Feed. DISCHARGE PHYSICAL EXAM - Gen Alert and awake Lying in bed No apparent distress Oriented to: person, time, and place - Skin No skin breakdown. Normacephalic - Eyes No abnormalities - ENMT No abnormalities - Neck No abnormalities - CVS RRR - Chest Clear - Resp No wheezing - Abd Soft - GI + bowel sounds Deferred - No abnormalities - Ext Mild bilateral lower extremity edema. - MSK 4+/5 weakness in both lower extremities. - Neuro No focal deficits FUNCTIONAL STATUS: - Self-Care A. Eating 6-Tamica B. Grooming 6-Tamica C. Bathing 4-Hugo D. Dressing - Upper 4-Hugo E. Dressing - Lower 3-modA F. Toileting 4-Hugo - Sphincter Control G. Bladder control 5-sup H. Bowel control 5-sup - Transfers Control I. Bed/Chair/Wheelchair 3-modA J. Toilet 4-Hugo K. Tub/Shower 3-modA - Locomotion L. Walk/Wheelchair (B) 4-Hugo M. Stairs 2-maxA - Communication N. Comprehension (B) 5-sup O. Expression (B) 6-Tamica - Social Cognition P. Social Interaction 7-Ind Q. Problem Solving 6-Tamica R. Memory 5-sup - Endurance Poor - Balance Good - Safety Awareness Fair QI SCORES: - Self-Care A. Eating 06-Independent B. Oral hygiene 10-Not attempted due to environmental limitations C. Toileting hygiene 04-Supervision or touching assistance E. Shower/bathe self 01-Dependent F. Upper body dressing 04-Supervision or touching assistance G. Lower body dressing 03-Partial/moderate assistance H. Putting on/taking off footwear 88-Not attempted due to medical condition or safety concerns - Mobility A. Roll left and right 04-Supervision or touching assistance B. Sit to lying 04-Supervision or touching assistance C. Lying to sitting on side of bed 04-Supervision or touching assistance D. Sit to stand 04-Supervision or touching assistance E. Chair/xti-ah-wyxkl transfer 04-Supervision or touching assistance F. Toilet transfer 04-Supervision or touching assistance G. Car transfer 88-Not attempted due to medical condition or safety concerns I. Walk 10 feet 04-Supervision or touching assistance J. Walk 50 feet with two turns 10-Not attempted due to environmental limitations K. Walk 150 feet 88-Not attempted due to medical condition or safety concerns L. Walking 10 feet on uneven surfaces 04-Supervision or touching assistance M. 1 step (curb) 88-Not attempted due to medical condition or safety concerns N. 4 steps 88-Not attempted due to medical condition or safety concerns O. 12 steps 88-Not attempted due to medical condition or safety concerns P. Picking up object 03-Partial/moderate assistance - Bladder and Bowel Bladder continence 1-Stress incontinence only Bowel continence 1-Occasionally incontinent - Endurance Good - Balance Good - Safety Awareness Good DISCHARGE INSTRUCTIONS: - N/A Eliquis 2.5 mg twice daily. DISCHARGE PLAN, FOLLOW UP CARE PROVISIONS: - Estimated Length of Stay (days) 10. - Consensus on plan Discharge plan has been discussed with primary caregiver. Patient/Family is in agreement with the lily n. Primary caregiver is in agreement with the plan. - Patient/Family Goals Return home with assistance. - Planned Living Setting Upon Discharge Home, to live with Family/Relatives. SIGNATURE PANEL: (CDT)
== END 2019-12-06 19:22 | disposition short-term general hospital (02) | DRG 949 ==
LOC: 5TH 12-02 11:10
PROVIDERS: ADMIT Psychiatry & Neurology Neurology with Special Qualifications in Child Neurology; ATTEND Psychiatry & Neurology Neurology with Special Qualifications in Child Neurology
PROC: 8E0ZXY6 Isolation (ICD-10-PCS; principal; 2019-12-06)
DX: Z48.812 Encounter for surgical aftercare following surgery on the circulatory system (principal); U07.1 COVID-19; J12.89 Other viral pneumonia; N39.0 Urinary tract infection, site not specified; C34.90 Malignant neoplasm of unspecified part of unspecified bronchus or lung; I10 Essential (primary) hypertension; B96.20 Unspecified Escherichia coli [E. coli] as the cause of diseases classified elsewhere; Z86.73 Personal history of transient ischemic attack (TIA), and cerebral infarction without residual deficits; Z88.8 Allergy status to other drugs, medicaments and biological substances; Z66 Do not resuscitate
CPT/HCPCS: 36415; 71045; 74230; 80048; 81001; 82040; 83735; 84134; 85025; 87070; 87077; 87086; 87088; 87186; 87205; 92523; 92526; 92611; 97112; 97116; 97127; 97161; 97530; U0002

== ENCOUNTER 2019-12-06 19:34 | Inpatient (IN) | payer OTHER ==
[2019-12-06] MEDS ORDERED: ACETAMINOPHEN 500 MG TAB PO PRN (19:41)
[2019-12-06] MEDS ORDERED: ONDANSETRON 4 MG/2 ML VIAL IV PRN (19:41)
[2019-12-06] MEDS ORDERED: MORPHINE 2 MG/ML SYR IV PRN (19:41)
--- OUTSIDE RECORDS SUMMARY | 2019-12-06 21:30 | XMS REPORT | Clinical Summary ---
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
--- OUTSIDE RECORDS SUMMARY | 2019-12-06 21:33 | XMS REPORT | Clinical Summary ---
:1930 Author Organization [facility] Address [address] [place] [address] Care Team Providers Name Role Phone Arias [...] Event Roman Nguyen MD 11/07/2019 Surgery Luis Albreto aSntiago, BRONCHOSCOP Y,ENDOBRO MD HAMEED ULTRASOU ND (EBUS) [...] Orders Lab Abelardo Paz 11/02/2019 Travel after 12/05/2018 Social History Tobacco Use Types Packs/Day Years [...] 12/18/2019 Clinical Support Cardiology Duyen Carver se, COMPUTER SYSTEM VALIDATION SPECIALIST [address] [place], [place] [address] [phone] 12/18/2019 Office Visit Cardiology Gabriel Streeter MD [address], [facility] [address] [place], [place] [address] [phone] Health Maintenance Due Date Last Done Comments PNEUMOCOCCAL 65+ LOW/MEDIUM RISK (1 of 2 - PCV13) 1997 Medicare IPPE (WELCOME TO MEDICARE) 06/06/2019 INFLUENZA VACCINE (#1) 2020 Implants Implanted Type Area Information Systems Coordinator Device Identifier Shelf Model / Expiration Serial / Date Lot Pacemkr Sgl Micra Transcath [id number] - [id number] PACEMAKER / Left: [employer]:CARD [id number] 01/17/2021 [id number] / Implanted: Qty: 1 on 11/15/2019 by Alexander Munson MD ICD Heart RHY:PACING SYS [id number] / CHAMBER DEVICE Valve Heart Nic 3 26mm [id number] - [id number] Valves N/A: RANDHAWA LIFESCI 03/13/2021 [id number] / Implanted: Qty: 1 on 11/15/2019 by Alexander Munson MD Aorta [id number] / Procedures Procedure Name Priority Date/Time Associated [...] section. FUNGUS CULTURE + Routine 11/03/2019 4:44 Results for this SMEAR PM CDT procedure are i n the results section. GLUCOSE PLEURAL FLUID Routine 11/03/2019 4:44 Re [...] are i n the results section. SARS-COV2/RT-PCR ([facility] STAT 11/02/2019 7:49 R esults for this [...] are i n the results section. after 12/05/2018 Results ARRYTHMIA IMPLANT REPORT - SCAN (11/27/2019 [...] 4:50 AM CDT) Pathologist: Abdirashid Montes M.D. [facility] (electonic signature) [facility] Platelets 198 150 - 450 K/CU [facility] ALTH MM [facility] ADP 71 62 - 100 % [facility] Platelet Rich Plasma 268 200 - 300 k/cu [facility] Plt. Function Screen Normal aggregation [facility] Interpretation results with ADP. No [facility] evidence of platelet dysfunction or P2Y12 inhibitor effect. Specimen Blood Narrative Performed At Platelet Function Screen results may be [facility] falsely low with platelet counts <75,000/cu mm. Compensation Adjuster ID - [id number] Performing Organization Address City/[facility]/Zipcode Phone Number [address] [address] CENTER Phosphorus (11/23/2019 4:50 AM CDT)Only the most recent of16 resultswithin the time period is included. Phosphorus 3.2 2.3 - 4.7 mg/dL [facility] Specimen Blood Narrative Performed At Compensation Adjuster ID - RUFUS M [facility] MED ICAL CENTER Performing Organization Address City/State/Zipcode Phone Number [address] [address] CENTER Magnesium (11/23/2019 4:50 AM CDT)Only the most recent of27 resultswithin the time period is included. Magnesium 2.1 1.6 - 2.6 mg/dL [facility] Specimen Blood Narrative Performed At Compensation Adjuster ID - RUFUS Gregory [facility] Performing Organization Address City/[facility]/Zipcode Phone Number [facility] [address] [place] [address] [place] Basic Metabolic Panel (11/23/2019 4:50 AM CDT)Only the most recent of27 results within the time period is included. Sodium 134 (L) 136 - 145 meq/L [facility] Potassium 3.4 (L) 3.5 - 5.1 meq/L [facility] Chloride 96 (L) 98 - 107 meq/L [facility] CO2 31 (H) 22 - 29 meq/L [facility] BUN 25 (H) 7 - 21 mg/dL [facility] Creatinine 0.92 0.57 - 1.25 mg/dL [facility] Glucose 104 70 - 105 mg/dL [facility] Calcium 8.3 (L) 8.4 - 10.2 mg/dL [facility] EGFR 78Comment: ESTIMATED GFR IS mL/min/1.73 sq m [facility] NOT ACCURATE [facility]ININE [facility] CLEARANCE IN PREDICTING GLOMERULAR FILTRATION RATE. ESTIMATED GFR IS NOT APPLICABLE FOR DIALYSIS PATIENTS. Specimen Blood Narrative Performed At Compensation Adjuster ID - RUFUS Gregory [facility] Performing Organization Address City/[facility]/Zipcode Phone Number [facility] [address] [place], [place] [address] [place] XR chest 1 view portable / bedside (11/22/2019 9:12 AM CDT)Only the most recent of21 resultswithin the time period is included. Specimen Narrative Performed At FINAL REPORT GE RIS CLINICAL HISTORY: RLL Carcinoma, frequen t pleural effusion. TECHNIQUE: 1 view of the chest. COMPARISON: 11/21/2019 IMPRESSION: The right PICC line is unchanged. Right mid and lower lung pleural parenchymal opacity appears increased in prominence. The left lung remains well-aerated. The cardiomediasti nal silhouette is magnified by technique. Signed: Abdullahi Penn MD Report Verified Date/Time:11/22/2019 11:14:15 Reading Location: [employer] [facility] Reading Room Procedure Note Interface, External [...] Verified Date/Time: 11/22/2019 1 1:14:15 Reading Location: [facility] Reading Radiol y Reading Room Performing Organization Address City/State/Zipcode Phone Number [facility] CBC with platelet count + automated diff (11/22/2019 4:23 AM CDT)Only the most recent of19 resultswithin the time period is included. WBC 14.1 (H) 3.5 - 10.5 K/L [facility] RBC 3.65 (L) 4.63 - 6.08 M/L [facility] Hemoglobin 10.4 (L) 13.7 - 17.5 GM/DL [facility] Hematocrit 32.7 (L) 40.1 - 51.0 % [facility] MCV 89.6 79.0 - 92.2 fL [facility] MCH 28.5 25.7 - 32.2 pg [facility] MCHC 31.8 (L) 32.3 - 36.5 GM/DL [facility] RDW 13.7 11.6 - 14.4 % [facility] HE ALTH [facility] Platelets 214 150 - 450 K/CU MM [facility] MPV 9.7 9.4 - 12.[address] [facility] HE ALTH [facility] nRBC 0 0 - 0 /[address] [facility] % Neutros 76 % [facility] % Lymphs 10 % [facility] ALTH [facility] % Monos 11 % [facility] HE ALTH [facility] % Eos 3 % [facility] HE ALTH [facility] % Baso 1 % [facility] ALTH [facility] # Neutros 10.70 (H) 1.78 - 5.38 K/L [facility] # Lymphs 1.34 1.32 - 3.57 K/L [facility] # Monos 1.48 (H) 0.30 - 0.82 K/L [facility] # Eos 0.37 0.04 - 0.54 K/L [facility] # Baso 0.09 (H) 0.01 - 0.08 K/L [facility] Immature 1 0 - 1 % [facility] ALTH M Granulocytes-Relative MEDICAL CE NTER Specimen Blood Performing Organization Address City/State/Zipcode Phone Number [facility] [address] [place] [address] CENTER Limited 2D Echocardiogram (11/21/2019 10:16 AM CDT) Ejection Fraction [facility] TLAB MKCKAyondoON CPA Specimen Narrative Performed At Transthoracic Echocardiography Report (T TE) [facility] MKCKESSON CPA Demographics Patient NameUDARTHUR DAODate of Study11/21/2019 Male Visit [id number] Unknown Room [id number] Number Date of 2Referring PhysicianScalin Streeter MD Age 89 year(s)[employer] Professor Jose Fuentes Factory Machine Computer Operator Valarie Liz, Interpreting Gabriel morales MD RDCSPhysicia clifford Procedure Type of Study TTE procedure:LIMITED 2D [...] Study 11/21/2019 Gende r Male Visit Number [id number] Race Unknown Room Number 1426 Number Date of 1930 Refer ring Physician Gabriel Streeter MD Age 89 year(s) 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 Abed Alfredo Factory Machine Computer Operator Juani Nava preting Gabriel Streeter MD [facility] Physi sophie Procedure Type of Study TTE [...] City/State/Zipcode Phone Number [facility] MKCKESSON [facility] Hemoglobin and hematocrit (11/18/2019 10:07 PM CDT)Only the most recent of4 resultswithin the time period is included. Hemoglobin 10.1 (L) 13.7 - 17.5 GM/DL [facility] Hematocrit 31.7 (L) 40.1 - 51.0 % [facility] Specimen Blood Narrative Performed At Compensation Adjuster ID - [id number] [facility] ICAL CENTER Performing Organization Address City/State/Zipcode Phone Number [facility] [address] [address] [place] Plasma free hemoglobin (11/17/2019 12:13 PM CDT) Hgb, Plasma 40.0 (H) 0.0 - 30.0 mg/dl [facility] Specimen Blood Performing Organization Address City/State/Zipcode Phone Number [address] [address] [place] TRANSFUSION SERVICE REPORT - SCAN (11/16/2019 6:02 PM CDT)Only the most recent of3 resultswithin the time period is included. Narrative Performed At This result has an attachment that is no t available. Cytology (11/16/2019 5:02 PM CDT)Only the most recent of3 resultswithin the time period is included. Case Report Medical Cytology Report Case: [id number] [facility] Authorizing Provider:Yoly Calderon NPCollected: 11/16/2019 05:02 PM [facility] Ordering Location: [place] [address] ccuReceived:11/19/2019 11:07 AM Pathologist: Tate Braksdale MD Specimen:Pleural, Right DIAGNOSIS PLEURAL, RIGHT, FLUID (CYTOSPINS AND CELL BLOCK) : [facility] - NEGATIVE FOR MALIGNANCY [facility] - Reactive mesothelial cells present Signing Pathologist Direct Phone Line: CPT Code(s) 41910, 65446 [facility] ALTH [facility] CLINICAL DATA Right pleural effusion, 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 SPECIMEN SOURCE PLEURAL, RIGHT FLUID [facility] ER GROSS DESCRIPTION 1100 mls bri fluid; 4 cytospins, cell block [facility] Collected: [id number] [facility] MEDICAL CE NTER Received: [id number] STATEMENT OF ADEQUACY Satisfactory [facility] Gross assessment was [facility] performed at [place], Department of [facility] Pathology, [address] [place] [address], Technical component was [facility] performed at [place], Department of [facility] Pathology, [address] [place] [address], Professional component was [facility] performed at [place], Department of [facility] Pathology, [address] [place] [address], Specimen Fine Needle Aspirate Narrative Performed At This result has an attachment that is no t available. Performing Organization Address City/State/Zipcode Phone Number [address] [address] [place] US thoracentesis (11/16/2019 5:00 PM CDT)Only the most recent of3 resultswithin the time period is included. Specimen Narrative Performed At FINAL REPORT [employer] Exam:Ultrasound guided thoracentesis Clinical History:Right-sided Pleural Effusion Manager Strategic Sourcing: Viviane Hager PA-C Supervising Physician: Maureen Fan [...] MD Report Verified Date/Time:11/23/2019 17:34:12 Reading Location: [facility] B1 [id number] [facility] Reading Room Procedure Note Interface, External Ris In - 11/23/2019 5:36 PM CDT FINAL REPORT Exam: Ultrasound guided thoracentesis Clinical History: Right-sided Pleural E ffusion Manager Strategic Sourcing: Viviane Hager PA-C Supervising Physician: Maureen Fan [...] Verified Date/Time: 11/23/2019 1 7:34:12 Reading Location: [facility] [id number] [facility] Reading Room Performing Organization Address City/[facility] Phone Number GE RIS PT/aPTT (11/16/2019 11:45 AM CDT)Only the most recent of3 resultswithin the time period is included. Protime 15.7 (H) 11.9 - 14.2 seconds [facility] INR 1.3 <=5.9 [facility] PTT 37.0 (H) 22.5 - 36.0 seconds [facility] Specimen Blood Narrative Performed At Effective 11/01/2018: PT Reference Range [facility] Change New: 11.9-14.2Previous: 11.7-14.7 RECOMMENDED COUMADIN/WARFARIN INR THERAPY RANGES STANDARD DOSE: 2.0-3.0Includes: PROPHYLAXIS for venous thrombosis, systemic embolization; TREATMENT for venous thrombosis and/or pulmonary embolus. HIGH RISK: Target INR is 2.5-3.5 for patients wiht mechanical heart valves. Performing Organization Address City/[facility]/Zipcode Phone Number [address] [address] [phone] CENTER Prothrombin time/INR (11/16/2019 11:45 AM CDT)Only the most recent of3 results within the time period is included. Protime 15.7 (H) 11.9 - 14.2 seconds [facility] INR 1.3 <=5.9 [facility] Specimen Blood Narrative Performed At Effective 11/01/2018: PT Reference Range [facility] Change New: 11.9-14.2Previous: 11.7-14.7 RECOMMENDED COUMADIN/WARFARIN INR THERAPY RANGES STANDARD DOSE: 2.0-3.0Includes: PROPHYLAXIS for venous thrombosis, systemic embolization; TREATMENT for venous thrombosis and/or pulmonary embolus. HIGH RISK: Target INR is 2.5-3.5 for patients wiht mechanical heart valves. Performing Organization Address City/State/Zipcode Phone Number [facility] [address] [place] [address] [place] 2D Echo W/Doppler(CW/PW/Color) (11/16/2019 10:23 AM CDT) Ejection Fraction [facility] TLAB [facility] Specimen Narrative Performed At Transthoracic Echocardiography Report (T TE) [facility] CKESSON [facility] Demographics Patient NameUDOVICH,Date of Study 11/16/2019 ARTHUR Male Visit [id number] Unknown Room Number 6104 Number Date of 2Referring Physician ALEXANDER MUNSON Age 89 year(s)[employer] Professor Britni Prabhakar [facility] Factory Machine Computer Operator Patrick Streeter MD Physician Procedure Type of [...] d. 4. Mild to moderate mitral regurgitation. Uujg-wj-jczpibua tricuspid regurgitation Previous Study In comparison with [...] Mild to moderate mitral re gurgitation. Tricuspid HlcexWwef-yc-tyccfhoo tricuspid regurgitation. Es timated peak systolic PA [...] .87 cm^2 Aorta Ao Root S of Johnathon.: [...] Study 11/16/2019 ARTHUR Gender Male Visit Number [id number] Race Unknown Room [place] [id number] Number Date of 1930 Referri von Physician ALEXANDER MUNSON Age 89 year(s) Sonogra angela Prabhakar RDCS Factory Machine Computer Operator Patrick Wilson Interpr doni Streeter MD Physici [...] 4. Mild to moderate mitral regurgitatio n. Hlcq-sd-nsykdqdf tricuspid regurgitation Previous Study In comparison with [...] Mild to moderate mitral regurgitation. Tricuspid Valve Rqqb-qx-phjvpahr tricuspid regurgitation. Estimated peak s ystolic PA [...] CI: 2.92 l/min/m^2 Performing Organization Address City/[facility]/Zipcode Phone Number [facility] CPACS Reticulocyte count (11/16/2019 9:39 AM CDT) % Retic 1.6 0.5 - 1.8 % [facility] Specimen Blood Narrative Performed At Compensation Adjuster ID - [id number] [facility] MED ICAL CENTER Performing Organization Address City/State/Zipcode Phone Number [facility] MEDICAL [address] [place] [address] CENTER Haptoglobin (11/16/2019 9:35 AM CDT) Haptoglobin 226 14 - 258 mg/dL [facility] Specimen Blood Narrative Performed At Compensation Adjuster ID - NTP [facility] Performing Organization Address City/[facility]/Zipcode Phone Number [facility] [address] [place] [address] [place] Blood gas, arterial (11/16/2019 4:30 AM CDT)Only the most recent of7 results within the time period is included. pH, Arterial 7.53 (H) 7.35 - 7.45 [facility] pCO2, Arterial 33 (L) 35 - 45 mmHg [facility] pO2, Arterial 180 (H) 80 - 90 mmHg [facility] O2 Sat, Arterial 99.4 (H) 96.0 - 97.0 % [facility] HCO3, Arterial 27 21 - 29 mmol/L [facility] Base Excess, Arterial 3.9 (H) -2.0 - 3.0 mmol/L [facility] Patient Temperature 37.0 C [facility] FIO2 40.0 % [facility] Specimen Blood, Arterial Performing Organization Address [facility] Phone Number [address] [address] [place] Lactate dehydrogenase (LDH) (11/16/2019 2:44 AM CDT) LDH 191 125 - 220 U/L [facility] Specimen Blood Narrative Performed At Compensation Adjuster ID - ROSIANG [facility] Performing Organization Address City/[facility]/Zipcode Phone Number [place] [phone] [place] [address] [place] Comprehensive metabolic panel (11/15/2019 4:47 PM CDT)Only the most recent of2 resultswithin the time period is included. Protein, Total 5.5 (L)Comment: Specimen 6.0 - 8.3 gm/dL [facility] slightly hemolyzed [facility] Albumin 2.4 (L)Comment: Specimen 3.5 - 5.0 g/dL [facility] slightly hemolyzed [facility] Alkaline Phosphatase 54 40 - 150 U/L [facility] Total Bilirubin 0.8Comment: Specimen 0.2 - 1.2 mg/dL [facility] slightly hemolyzed [facility] Sodium 138 136 - 145 meq/L [facility] ALTH [facility] Potassium 3.5Comment: Specimen 3.5 - 5.1 meq/L [facility] slightly hemolyzed [facility] Chloride 103 98 - 107 meq/L [facility] ALTH [facility] CO2 25 22 - 29 meq/L [facility] ALTH [facility] BUN 17 7 - 21 mg/dL [facility] ALTH [facility] Creatinine 1.03Comment: Specimen 0.57 - 1.25 mg/dL [facility] slightly hemolyzed [facility] Glucose 164 (H) 70 - 105 mg/dL [facility] ALTH [facility] Calcium 8.4 8.4 - 10.2 mg/dL [facility] MEDICAL CENT ER AST 19Comment: Specimen 5 - 34 U/L [facility] slightly hemolyzed [facility] ALT 14Comment: Specimen 6 - 55 U/L [facility] slightly hemolyzed [facility] C [facility] EGFR 68Comment: ESTIMATED GFR mL/min/1.73 sq m [facility] IS NOT ACCURATE [facility] CREATININE CLEARANCE IN PREDICTING GLOMERULAR FILTRATION RATE. ESTIMATED GFR IS NOT APPLICABLE FOR DIALYSIS PATIENTS. Specimen Blood Narrative Performed At Compensation Adjuster ID - BS [facility] Performing Organization Address City/State/Zipcode Phone Number [facility] [address] [place] [address] CENTER Prepare RBC (11/15/2019 4:14 PM CDT) CROSSMATCH COMPATIBLE SAFETRACE TX Unit ABO A Pos SAFETRACE TX UNIT NUMBER [id number] SAFETRACE TX Status RETURNED FROM ISSUE SAFETRACE TX Blood Bank Product RED BLOOD CELLS SAFETRACE TX PRODUCT CODE [id number] SAFETRACE TX CROSSMATCH COMPATIBLE SAFETRACE TX Unit ABO A Pos SAFETRACE TX UNIT NUMBER [id number] SAFETRACE TX Status RETURNED FROM ISSUE SAFETRACE TX Blood Bank Product RED BLOOD CELLS SAFETRACE TX PRODUCT CODE [id number] SAFETRACE TX Performing Organization Address [facility] Phone Number SAFETRACE TX POC ACTIVATED CLOTTING TIME (11/15/2019 1:54 PM CDT) Activated Clotting Time 252Comment: : 74-137 sec [facility] seconds, Baseline: TESTED [facility] [address], [id number]: Compensation Adjuster/Electronics Detail Draftsperson ID = [id number] for JOLYNN KRAFT Specimen Blood Performing Organization Address [facility] Phone Number [address] [address] CENTER Potassium-Stat Lab (11/15/2019 1:28 PM CDT) Potassium 3.6 3.6 - 5.5 meq/L [facility] Specimen Blood, Arterial Performing Organization Address [facility] Phone Number [address] [address] [place] Sodium Na-Stat Lab (11/15/2019 1:28 PM CDT) Sodium 133 (L) 136 - 145 meq/L [facility] Specimen Blood, Arterial Performing Organization Address [facility] Phone Number [address] [address] CENTER Glucose-Stat Lab (11/15/2019 1:28 PM CDT) Glucose 113 (H) 70 - 110 mg/dL [facility] Specimen Blood, Arterial Performing Organization Address City/[facility]/Zipcode Phone Number [address] [address] [place] HGB/HCT (H&H)-Stat Lab (11/15/2019 1:28 PM CDT) Hemoglobin 11.4 (L) 13.0 - 16.8 g/dL [facility] Hematocrit 34.0 (L) 40.0 - 50.0 % [facility] Specimen Blood, Arterial Performing Organization Address [facility] Phone Number [address] [address] [place] Calcium, Ionized (11/15/2019 1:28 PM CDT)Only the most recent of2 resultswithin the time period is included. Calcium, Ion 1.10 (L) 1.12 - 1.27 mmol/L [facility] pH, Blood 7.52 [facility] Specimen Blood Performing Organization Address [facility] Phone Number [address] [address] [place] POC-Glucose meter (11/15/2019 11:59 AM CDT)Only the most recent of21 results within the time period is included. POC-Glucose Meter 116 (H)Comment: : TESTED 70 - 110 mg/dL [facility] AT [address], [address]: Compensation Adjuster/Electronics Detail Draftsperson ID = [id number] for DEBORAH SANDRA Specimen Blood Performing Organization Address [facility] Phone Number [address] [address] [place] Transesophageal echo (11/15/2019 10:49 AM CDT) Ejection Fraction [facility] Specimen Narrative Performed At Transesophageal Echocardiography Report (MAKAYLA) [facility] Demographics Patient NameUDSYLWIA,Date of Study 11/15/2019 ARTHUR Male Visit [id number] Unknown Room Number 6104 Number Date of 2Referring Physician Gabriel Streeter MD Age 89 year(s)[employer] Professor Rex Streeter MD Physician Procedure Type of [...] effusion. Signature Findings Rhythm/BP Interventional MAKAYLA (cpt 29816) for guidance of percutaneous intracardiac procedure. 3D imaging (cpt 91938) rendering with interpretation was performed. LeftThe left [...] Study 11/15/2019 ARTHUR Gender Male Visit Number [id number] Race Unknown Room [place] [address] Number Date of 1930 Referri Physician Gabriel Streeter MD Age 89 year(s) Sonogrfernando Goodman [facility] Interpr eting Gabriel Streeter MD Physici an Procedure Type of [...] Signature Findings Rhythm/BP Interventional MAKAYLA (cpt 9 2272) for guidance of percutaneous intracardiac procedure. 3D imaging (cpt 76471) re ndering with interpretation was performed. Left [...] based on available views. Performing Organization Address [facility] Phone Number [facility] CPACS aPTT (11/15/2019 3:26 AM CDT)Only the most recent of14 resultswithin the time period is included. PTT 79.3 (H) 22.5 - 36.0 seconds [facility] Specimen Blood Performing Organization Address [facility]/Zipcode Phone Number [facility] [address] [place] [address] CENTER Blood culture (11/13/2019 4:08 PM CDT)Only the most recent of4 resultswithin the time period is included. Result No growth in 5 days [facility] Specimen Blood Performing Organization Address City/[facility]/Zipcode Phone Number [facility] [address] [place] [address] CENTER Urinalysis w/Microscopic + Reflex to Culture (11/13/2019 12:05 PM CDT)Only the most recent of2 resultswithin the time period is included. Color, UA Light Yellow [facility] Clarity, UA Clear [facility] Specific [place], UA 1.014 1.001 - 1.035 [facility] pH, UA 6.5 5.0 - 8.0 [facility] Protein, UA Negative Negative [facility] Glucose, UA Negative Negative [facility] Ketones, UA Negative Negative [facility] Bilirubin, UA Negative Negative [facility] Blood, UA Negative Negative [facility] Nitrite, UA Negative Negative [facility] Leukocytes, UA Negative Negative [facility] Urobilinogen, UA 0.2 0.2 - 1.0 mg/dL [facility] RBC, UA 1 /HPF [facility] WBC, UA 1 /HPF [facility] Squam Epithel, UA <1 /HPF [facility] Hyaline Casts, UA 1 /LPF [facility] Yeast Rare [facility] Specimen Source [facility] Specimen Urine Narrative Performed At Compensation Adjuster ID - [auto] [facility] Compensation Adjuster ID - tech Performing Organization Address [facility]/Zipcode Phone Number [facility] [address] [place] [address] CENTER Type and screen, automated (11/13/2019 11:04 AM CDT)Only the most recent of2 resultswithin the time period is included. ABO/RH AUTOMATED (BEAKER) A POSITIVE [facility] Ab Scrn NEGATIVE [facility] Specimen Blood Performing Organization Address [facility] Hospitalcome Phone Number [facility] [address] [place] [address] Hepatic function panel (11/13/2019 4:34 AM CDT)Only the most recent of4 results within the time period is included. Protein, Total 5.4 (L) 6.0 - 8.3 gm/dL [facility] Albumin 2.5 (L) 3.5 - 5.0 g/dL [facility] Total Bilirubin 0.9 0.2 - 1.2 mg/dL [facility] Bilirubin, Direct 0.5 0.1 - 0.5 mg/dL [facility] Alkaline Phosphatase 54 40 - 150 U/L [facility] AST 15 5 - 34 U/L [facility] ALT 17 6 - 55 U/L [facility] Specimen Blood Narrative Performed At Compensation Adjuster LISA - RUFUS M [facility] ICAL CENTER Performing Organization Address [facility] Hospital[facility] Phone Number [facility] [address] [place] [address] CENTER Body fluid cell count with differential (11/11/2019 1:09 PM CDT) Appearance Cloudy (A) Clear [facility] Color Yellow (A) Colorless, Straw [facility] RBCs 6,000 (H) <=1 /cu mm [facility] Adjusted WBC Count 1,392 (H) <=5 /cu mm [facility] Lining Cells 0 <=1 /cu mm [facility] % Segs 37 % [facility] % Lymphs 44 % [facility] % Monos 19 % [facility] % Eos 0 % [facility] HE ALTH [facility] % Baso 0 % [facility] HE ALTH [facility] Container Body Fluid Sterile Vial [facility] Specimen Body Fluid Performing Organization Address City/[facility] Hospitalcode Phone Number [address] [address] CENTER Potassium (11/10/2019 10:34 AM CDT) Potassium 3.5 3.5 - 5.1 meq/L [facility] Specimen Blood Narrative Performed At Compensation Adjuster ID - DONNA C [facility] Performing Organization Address City/[facility] Hospitalcode Phone Number [address] [address] CENTER INTRAOPERATIVE PATH REPORT - SCAN (11/09/2019 3:11 PM CDT) Narrative Performed At This result has an attachment that is no t available. Oxygen saturation, measured (11/08/2019 9:46 PM CDT) O2 Saturation (Measured) 64.5 % [facility] Specimen Blood Performing Organization Address [facility] Hospitalcode Phone Number [address] [address] [place] Lactic acid, venous (11/08/2019 9:46 PM CDT)Only the most recent of3 results within the time period is included. Lactate, Venous 0.96 0.50 - 2.20 mmol/L [facility] Specimen Blood Narrative Performed At Compensation Adjuster ID - BS [facility] Performing Organization Address [facility]/Zipcode Phone Number [address] [address] [place] PULMONARY FUNCTION - SCAN (11/08/2019 2:30 PM [...] period is included. Cytology See Separate Report [facility] Specimen EBUS Fine Needle Aspirate - Lymph Node, Lower Paratracheal, Left, Station 4L Performing Organization Address City/State/Zipcode Phone Number [facility] [address], [place] [address] [place] Fine Needle Aspiration by EBUS (11/07/2019 4:11 PM CDT)Only the most recent of3 resultswithin the time period is included. Case Report Medical Cytology Report Case: [id number] [facility] Authorizing Provider:Luis Alberto Zayas, MDCollected: 11/07/2019 04:11 PM [facility] Ordering Location: [place] [address] CCUReceived:11/07/2019 05:12 PM Pathologist: Berenice Eng MD Specimen:Lymph Node, Subcarinal, Station 7 DIAGNOSIS LYMPH NODE, SUBCARINAL, STAT ION 7, FNA BY CLINICIAN (CYTOSPINS AND CELL BLOCK OF ASPIRATE): [facility] - SATISFACTORY FOR EVALUATION [facility] - NEGATIVE FOR METASTATIC MALIGNANT CELLS - EVIDENCE OF LYMPH NODE SAMPLING ([place] US LYMPHOID TISSUE PRESENT) Signing Pathologist Direct Phone Line: [phone] COMMENT [facility] ALTH Please also see surgical pat hology report [id number] and cytopathology reports [id number] and [id number]. [facility] CPT Code(s) 53009, 50955 [facility] ALTH [facility] ER CLINICAL DATA Right lower lobe mass, [facility] mediastinal adenopathy, [facility] abnormal CT scan of chest SPECIMEN SOURCE LYMPH NODE, SUBCARINAL, STATION [facility] [address] [facility] ER GROSS DESCRIPTION Received 35 ml cytorich red fixative sample; prepared cell block(A2) and 2 cytospins [facility] Collected: [id number] [facility] Received: [id number] MICROSCOPIC DESCRIPTION Performed. [facility] SPECIAL STUDIES The interpretation of this c ase included the use of immunohistochemistry or special stains. [facility] Control Slides Examined: In -house known positive controls were evaluated along with the test tissue. These control slides run alongside of the patients sample show appropriate staining. Internal posit radha and negative controls when available are rositafernando hendrix Immunohistochemistry technic al testing was performed at [facility], Pathology Laboratory where it was developed and its performance characteristics were determined. It has not be en cleared or approved by [facility] U.S. Food and Drug Administration. The FDA has determined that such clearance or approval is not necessary. The test is used for clinical purposes. It should not be regarde d as investigational or for research. This laboratory is certified under the Clinical Laboratory Improvement Amendments of 1988 (CLIA-88) as qualified to perform high complexity clinical laboratory testing. Gross assessment was [facility] performed at [place], Department of [facility] Pathology, [address] [place] [address], Technical component was [facility] performed at [place], Department of [facility] Pathology, [address] [place] [address], Professional component [facility] was performed at [place], Department of [facility] Pathology, [address] [place] [address], Specimen EBUS Fine Needle Aspirate - Lymph Node, Subcarinal, Station 7 Narrative Performed At This result has an attachment that is no t available. Performing Organization Address City/State/Zipcode Phone Number [address] [address] [place] Tissue Exam (11/07/2019 3:42 PM CDT) Case Report Surgical Pathology Report Case: [id number] [facility] Authorizing Provider:Luis Alberto Zayas, MDCollected: 11/07/2019 03:42 PM [facility] MEDICAL Ordering Location: [place] [address] CCUReceived:11/07/2019 03:49 PM CENTER Pathologist: Lala Jimenez MD Specimens: A) - Lung, Ri ght Lower Lobe, Right lower lobe endobronchial tissue B) - Lung, Right Lower Lobe, TBBX. Process in Cytology for Collodion Bag, Reflex Gen etic Markers. ADDENDUM 3 THIS ADDENDUM IS ISSUED TO R EPORT THE RESULT OF EGFR MUTATION , ON BLOCK B1, AT [facility]: [facility] Please refer to the scanned report for additiona l information ADDENDUM 2 This addendum is issued to r eport the result of BRAF mutation on block B1. The test was done at [facility]: [facility] [place] - BRAF Mutation: Not detected [facility] Please refer to the scanned report for evaluatio n ADDENDUM THIS ADDENDUM IS ISSUED TO R EPORT THE RESULTS OF BIOMARKER STUDIES, ON SPECIMEN B1: [facility] - ALK Rearrangement: Not Detected [facility] - ROS Gene Rearrangement: Not Detected (Negativ e) CENTER - PD-L1 22C3 FDA (KEYTRUDA) for NSCLC : EXPRESSED. Tumor proportion score:1%, Intensity: 1% Please refer to the scanned report for additiona l information The test was done at [facility] DIAGNOSIS A. LUNG, RIGHT LOWER LOBE, ENDOBRONCHIAL BIOPSY: ELIZAB[facility] - POSITIVE FOR MALIGNANCY (SEE COMMENT [facility] CENTER B. 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 The frozen section shows rare clusters of malignant cells in a background of necrosis and inflammation. Malignant cells are not represented adequately on the permanent section for further characterization. [facility] MEDIC HI B. The neoplastic cells are positive for [id number] and negative for TTF-1. 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 Ge CENTER netic markers are being done at [facility]. Report will follow CPT Code(s) 40255x6, 53521m4, 27669s5, [facility] Mireya TUBBS [id number] [facility] CLINICAL HISTORY Necrotizing pneumonia; lung [facility] mass [facility] SPECIMEN SOURCE A. Right lower lobe endobronchial tissue [facility] B. Lung, Right lower lobe transbronchial biopsy [facility] GROSS DESCRIPTION Specimen A is labeled "lung, right lower lobe". Received fresh for intraoperative consultation are three tiny fragments of tate-brown tissue measuring 0.3 cm each. The specimen is entirely submitted for frozen in cassette A1. SW/pl [facility] Specimen B: The specimen is received in [...] RIGHT LOWER LOBE, ENDOBRONCHIAL TISSUE, B IOPSY: [facility] CONSULTATION - POSITIVE FOR MALIGNANCY IN A BACKGROUND OF INFLAMMATION AND NECROSIS [facility] Reported by Dr. Jimenez, pathologist [id number] at 4 :02 p.m. MICROSCOPIC DESCRIPTION A-B: Performed [facility] SPECIAL STUDIES The interpretation of this c ase included the use of immunohistochemistry or special stains. [facility] TTF-1; [id number] [facility] EDICAL Control Slides Examined: In -house known positive controls were evaluated along with the test tissue. These control slides run alongside of the patients sample show appropriate staining. Internal posit [facility]ENTE R radha and negative controls when available are rosita hendrix Immunohistochemistry technic al testing was performed at [facility], Pathology Laboratory where it was developed and its performance characteristics were determined. It has not be en cleared or approved by [facility] U.S. Food and Drug Administration. The FDA has determined that such clearance or approval is not necessary. The test is used for clinical purposes. It should not be regarde d as investigational or for research. This laboratory is certified under the Clinical Laboratory Improvement Amendments of 1988 (CLIA-88) as qualified to perform high complexity clinical laboratory testing. Gross assessment was [facility] performed at [facility] MEDICAL Pathology, [address] [place] [address], Technical component was [facility] performed at [facility] MEDICAL Pathology, [address] [place] [address], Professional component [facility] was performed at [facility] Pathology, [address] [place] [address], Specimen Tissue Tissue - Structure of lower lobe of righ t lung (body structure) Narrative Performed At This result has an attachment that is no t available. Performing Organization Address City/State/Zipcode Phone Number [address] [address] CENTER ABORH, manual (11/07/2019 8:19 AM CDT) ABO Grouping A [facility] Rh Factor POS [facility] Specimen Blood Performing Organization Address City/[facility]/Zipcode Phone Number [address] [address] CBC (hemogram only) (11/07/2019 5:26 AM CDT)Only the most recent of5 results within the time period is included. WBC 13.8 (H) 3.5 - 10.5 K/L [facility] RBC 3.97 (L) 4.63 - 6.08 M/L [facility] Hemoglobin 11.8 (L) 13.7 - 17.5 GM/DL [facility] Hematocrit 36.2 (L) 40.1 - 51.0 % [facility] MCV 91.2 79.0 - 92.2 fL [facility] MCH 29.7 25.7 - 32.2 pg [facility] MCHC 32.6 32.3 - 36.5 GM/DL [facility] RDW 13.9 11.6 - 14.4 % [facility] Platelets 175 150 - 450 K/CU MM [facility] MPV 9.6 9.4 - 12.4 fL [facility] nRBC 0 0 - 0 /100 WBC [facility] Specimen Blood Performing Organization Address City/State/Zipcode Phone Number [facility] [address] [place] [address] [place] [address] chest without IV contrast (11/06/2019 4:11 PM CDT) Specimen Narrative Performed At FINAL REPORT [facility] CT of the Chest dated 11/06/2019 COMPARISON: [...] MD Report Verified Date/Time:11/06/2019 17:38:38 Reading Location: [facility] C013Y CT Body R eading Room Procedure [...] Verified Date/Time: 11/06/2019 1 7:38:38 Reading Location: [facility] B1 C013Y CT Body R eading Room Performing Organization Address City/State/Zipcode Phone Number GE RIS Pulmonary Funct Lab Spirometry (11/06/2019 2:45 PM CDT) Narrative Performed At Tosin Chavez, [facility] 0203:21 PM [facility] PFT CHARTING REPORT Infection Control/Hand Hygiene procedure s followed throughout the encounter with patient: Yes Patient Identification Method: Patient n asa verified on armband, and Medical record on armband, Is the order complete?: Yes Account ID#: [id number] Patient Name: Arthur Nunez Birthdate: 1930 Age: [...] Tr 23.1 (H) 10.0 - 20.0 ug/mL [facility] Specimen Blood Narrative Performed At Compensation Adjuster ID - PIAYA L [facility] ICAL CENTER Performing Organization Address City/State/Zipcode Phone Number [facility] [address] [place] [address] brain without IV contrast (11/05/2019 11:18 PM CDT) Specimen Narrative Performed At FINAL REPORT RIS EXAM: CT head without contrast. CLINICAL [...] 3:24:44 Performing Organization Address City/State/Zipcode Phone Number [facility] EKG-SCANNED (11/05/2019 3:50 PM CDT) Narrative Performed At This result has an attachment that is no t available. Carotid doppler bilateral (11/05/2019 12:38 PM CDT) Ejection Fraction [facility] CPACS Specimen Impressions Performed At Right Impression [facility] 1. There is [...] Performed At LAB - Carotid Duplex Study [facility] Demographics Patient Sarai Mosley of Study 11/05/2019 89 Visit [id number] Male of 1930 Referring Gabriel Streeter,Room Number 6 210 Physician [employer] Professor Philipp recio, T Physician ESQUEDA Procedure Type of Study: [...] of Study 11/05/2019 Age 89 Visit Number [id number] Gen jin Male Accession Number [id number] Thomas e of 1930 Referring Gabriel StreeterFlorinda m Number [id number] Physician [employer] Professor Philipp Martinez Int erpreting Reshma Bal, T [...] Address City/State/Zipcode Phone Number [facility]ACS Lactate Dehydrogenase (LD), Pleural Fluid (11/03/2019 7:12 PM CDT) Lactate Dehydrogenase 102 See Note: U/L [facility] (LD), Pleural Fluid Comment: INCORPORATED Reference Range: TRANSUDATE:<113 EXUDATE: >113 Specimen Body Fluid Narrative Performed At Performing Lab [facility] [employer] [address] [address] [address] [place] [address] Clarissa Zavala MD, PhD, SHELLIE Performing Organization Address [facility] Phone Number [facility] [place] [address] [facility]PORATED [address] [facility] Glucose Pleural Fluid (11/03/2019 4:44 PM CDT) Glucose, Pleural Fluid 131 mg/dL [facility] Comment: INCORPORATED Reference range approximates that found in serum . Specimen Body Fluid Narrative Performed At Performing Lab [facility] [employer] [address] [address] [address] [place] [address] Clarissa Zavala MD, PhD, SHELLIE Performing Organization Address [facility] Phone Number [facility] [place] [address] INCORPORATED [address] [facility] Body fluid culture + gram stain (11/03/2019 4:44 PM CDT) Result No growth [facility] Gram Stain Result 4+ WBCs [facility] Gram Stain Result No organisms seen [facility] Specimen Body Fluid Performing Organization Address [facility] Phone Number [address] [address] CENTER Fungus culture + smear (11/03/2019 4:44 PM CDT) Result No fungus isolated in 28 days [facility] Fungus Smear No fungi seen [facility] Specimen Body Fluid Performing Organization Address [facility] Phone Number [address] [address] CENTER Protein, Total, Pleural Fluid (11/03/2019 4:43 PM CDT) PROTEIN, TOTAL, PLEURAL FLUID 2.4 g/dL [facility] Specimen Body Fluid Performing Organization Address City/[facility]/Zipcode Phone Number [facility] [address] [place], [place] [address] [place] MRSA screen (11/03/2019 12:14 PM CDT) Result No MRSA isolated [facility] Specimen Nasal Performing Organization Address City/State/Zipcode Phone Number [facility] [address] [place] [address] [place] Aspergillus galactomannan antigen (11/03/2019 12:10 PM CDT) Aspergillus Index Value <0.50 [facility] Aspergillus Antigen NOT DETECTED [facility] Comment: INCORPORATED REFERENCE RANGE: <0.50, NOT DETECTED A negative result does not exclude invasive aspergillosis. Follow-up testing may be indicate d for high-risk patients. Specimen Blood Narrative Performed At Performing Lab [facility] *[facility] [employer] [address] [place] [address] Nivia Rodriguez MD Performing Organization Address [facility] Phone Number [facility] [employer] [place], [place] [address] INCORPORATED [address] [employer] Fungal Panel (11/03/2019 12:09 PM CDT) Fungal Panel1 Refer to individual [facility] Aspergillus, Blastomyces, Coccidioides & Histoplasma Ab results. Specimen Blood Performing Organization Address [facility] Phone Number [facility] [employer] [place] [address] INCORPORATED [id number] RodrigesGarfield County Public HospitalCaustic Graphics fungitel (11/03/2019 12:07 PM CDT) Scan Result <31 [facility] Specimen Blood Narrative Performed At This result has an attachment that is no t available. Performing Organization Address City/[facility]/Zipcode Phone Number [facility] [address] [address] [facility] o, [place] Strep pneumoniae antigen (11/03/2019 9:58 AM CDT) Strep pneumoniae Presumptive negative Presumptive negative [facility] Antigen for pneumococcal for pneumococcal [facility] pneumonia - see comment pneumonia - see CENTER comment, Presumptive negative for pneumococcal meningitis - see comment Specimen Urine Narrative Performed At Presumptive negative for pneumococcal [facility] pneumonia, suggesting no current or recent pneumococcal infection. Infection due to S. pneumoniae cannot be ruled out since the antigen present in the sample may be below the detection limit of the test. Performing Organization Address [facility]/State/Zipcode Phone Number [address] [address] [place] Legionella antigen, urine (11/03/2019 9:57 AM CDT) Legionella Urine Antigen Negative - see [facility] commentComment: Negative [facility] for L. pneumophila serogroup 1 antigen, suggesting no recent or current infection with this serogroup. Legionellosis cannot be ruled out since other serogroups and species may cause disease. Specimen Urine - Urine, Sterile Collection Performing Organization Address [facility] Hospitalcode Phone Number [address] [address] [place] Histoplasma antigen, urine (11/03/2019 9:15 AM CDT) [...] test should be used in conjunction with ot er diagnostics tests, including culture, molecular assays, and histology in making a final diagnosi s. Specimen Urine Narrative Performed At Performing Lab [facility] *QDID Turn Infectious [employer] [address] [facility] [place] [address] Nivia Rodriguez MD Performing Organization Address City/State/Zipcode Phone Number [facility], [place], [place] [address] [id number] [address] [facility] Procalcitonin (11/03/2019 8:46 AM CDT) Procalcitonin 1.00 (H) <0.05 ng/mL [facility] Specimen Blood Narrative Performed At SEPSIS RISK (ng/mL) [facility] Low:0.05-0.50 Intermediate: 0.51-2.00 High: >=2.01 Performing Organization Address [facility] Hospitalcode Phone Number [address] [address] CENTER Cortisol (11/03/2019 8:46 AM CDT) Cortisol, Total 21.3 (H) 3.7 - 19.4 ug/dL [facility] Specimen Blood Narrative Performed At Compensation Adjuster ID - ALYSE W [facility] Performing Organization Address City/[facility] Hospitalcode Phone Number [address] [address] CENTER TSH/Free T4 If Indicated (11/03/2019 8:46 AM CDT) TSH 0.325 (L) 0.350 - 4.940 uIU/mL [facility] Specimen Blood Narrative Performed At Compensation Adjuster ID - LM [facility] Performing Organization Address City/[facility]/Zipcode Phone Number [address] [address] CENTER T4, free (11/03/2019 8:46 AM CDT) Free T4 0.71 0.70 - 1.48 ng/dL [facility] Specimen Blood Narrative Performed At Compensation Adjuster ID - LM [facility] Performing Organization Address City/[facility]/Zipcode Phone Number [address] [place] [address] CENTER Hemoglobin A1c (11/03/2019 8:46 AM CDT) Hemoglobin A1C 5.4 4.3 - 6.1 % [facility] Specimen Blood Performing Organization Address City/State/Zipcode Phone Number [address] [address] [place] Troponin I (11/03/2019 1:24 AM CDT)Only the most recent of3 resultswithin the time period is included. Troponin I 0.58 (HH) 0.00 - 0.03 ng/mL [facility] Specimen Blood Narrative Performed At Troponin I (TnI) levels must be interpreted [facility] in the context of the presenting symptoms and the clinical findings. Elevated TnI levels indicate myocardial damage, but are not specific for ischemic heart disease. Elevated TnI levels are seen in patients with other cardiac conditions (including myocarditis and congestive heart failure), and slight TnI elevations occur in patients with other conditions, including sepsis, renal failure, acidosis, acute neurological disease, and persistent tachyarrhythmia. Compensation Adjuster ID - PIAYA L Performing Organization Address City/[facility]/Zipcode Phone Number [address] [address] [place] Venous doppler legs bilateral (11/03/2019 1:04 AM CDT) Ejection Fraction [facility] Specimen Impressions Performed At Right Impression [facility] 1. There is [...] At LAB - Lower Extremities DVT Study [facility] Demographics Patient Name Opal NUNEZte of Study11/03/2019 [id number] Visit Number [id number] Male Accession Number [id number] of Birth1930 [facility] Room Number 6210 MD Joesph SonographViviana Escobar [facility] Interpreting Reshma Bal Physician Procedure Type of Study: Veins: Lower [...] Study 11/03/2019 Ag e 89 Visit Number [id number] Ge nder Male Accession Number [id number] Da te of 1930 Referring Ciara Ward om Number 6210 Physician MD [place] [employer] Professor Eloise Escobar RVT In terpreting Reshma Bal, Ph ysician Procedure [...] are measured in cm Performing Organization Address City/State/[facility] Hospitalcome Phone Number [facility] CPA CTA chest (11/03/2019 12:30 AM CDT) Specimen Narrative Performed At Addendum [facility] Kopi RIS REPORT STATUS:A I agree with the [...] MD Report Verified Date/Time:11/05/2019 11:32:40 Reading Location: [address] Radiolog y Reading Room Addendum Ends [...] the contrast sheet scann ed in the Silentsoft system for the amount and route of [...] regar ding the non-vascular findings by the Chemical Plant Operator Radiologist. Signed: Gaudencio Valencia MD Report Verified Date/Time:11/04/2019 09:18:32 Reading Location: [place] [address] [place] Reading Room Procedure Note Interface, External [...] Verified Date/Time: 11/05/2019 1 1:32:40 Reading Location: [address] [facility] Addendum Ends FINAL REPORT CT [...] the contrast sheet scann ed in the Silentsoft system for the amount and route of [...] (34 mm valve). For reference purpose, per Katyh Edge olimpia egan, recommendation are as follows: [...] regardi ng the non-vascular findings by the Chemical Plant Operator Radiologist. Signed: Gaudencio Valencia MD Report Verified Date/Time: 11/04/2019 0 9:18:32 Reading Location: [place] [address] [address] Reading Room Performing Organization Address City/State/Zipcode Phone Number [facility] CTA abdomen & pelvis (11/03/2019 12:30 AM CDT) Specimen Narrative Performed At Addendum Begins Kopi RIS REPORT STATUS:A I agree with the [...] MD Report Verified Date/Time:11/05/2019 11:32:40 Reading Location: [address] Radiolog Reading Room Addendum Ends FINAL REPORT CT [...] the contrast sheet scann ed in the Silentsoft system for the amount and route of [...] mm, respectively. For reference purpose, per RANDHAWA Jasmin egan, recommendation are as follows: CT area [...] regar ding the non-vascular findings by the Chemical Plant Operator Radiologist. Signed: Gaudencio Valencia MD Report Verified Date/Time:11/04/2019 09:18:32 Reading Location: [place] [id number] Reading Room Procedure Note Interface, External [...] Verified Date/Time: 11/05/2019 1 1:32:40 Reading Location: [address] Radiolog y Reading Room Addendum Ends [...] the contrast sheet scann ed in the Silentsoft system for the amount and route of [...] reference purpose, per [employer] Gabino lut R brochure, recommendation are as follows: CT perime ter between 56.5-62.8 mm (23 mm valve); 62.8-72.3 mm (26 mm valve); 7 2.3-81.7 mm (29 mm valve); and 81.7-94.2. mm (34 mm valve). For reference purpose, per Kathy Edge br julisa, recommendation are as follows: 23mm valve is [...] regardi ng the non-vascular findings by the Chemical Plant Operator Radiologist. Signed: Gaudencio Valencia MD Report Verified Date/Time: 11/04/2019 0 9:18:32 Reading Location: [place] [address] [address] Reading Room Performing Organization Address City/State/Zipcode Phone Number [facility] ECG/EKG Interpretation (11/02/2019 11:37 PM CDT) Narrative Performed At Ciara Posadas MD 020 12:52 AM ECG/EKG Interpretation Date/Time: 11/03/2019 12:49 [...] CDT) Narrative Performed At Ciara Posadas MD 020 12:52 AM Critical Care Performed by: iCara Posadas MD Authorized by: Ciara Posadas MD [...] W/Doppler(CW/PW/Color) (11/02/2019 9:23 PM CDT) Ejection Fraction [facility] Specimen Narrative Performed At Transthoracic Echocardiography Report (T TE) [facility] CK[facility] Demographics Patient NameARTHUR NUNEZDate of Study11/02/2019 Male Visit [id number] Unknown Room [id number] Number Date of 2Referring Keyla Streeter MD Age 89 year(s)[employer] Professor Jose Ramon Salas Factory Machine Computer Operator Caprice Perryerpremaria victoria Streeter MD Physician FellowZenon nelson MD Procedure [...] Study 11/02/2019 Gende r Male Visit Number [id number] Race Unknown Room Number 6210 Number Date of 1930 Refer [facility] Physician Gabriel Streeter MD Age 89 year(s) 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 Jose Ramon Salas Factory Machine Computer Operator Caprice Lorenz Inter preting Gabriel Streeter MD Physi sophie Fellow [...] Valve Mild MV leaflet calcification. Mild mitral aslhey lar calcification. Mild mitral regu rgitation. Tricuspid [...] City/State/Zipcode Phone Number [facility] SARS-CoV2/RT-PCR (Symptomatic ONLY) (11/02/2019 7:49 PM CDT) SARS-COV2/RT-PCR Not Detected Not Detected, Negative [facility] SARS-COV-2 PERFORMING LAB [facility] Specimen Other Narrative Performed At Negative results do not preclude SARS-CoV-2 [facility] infection and should not be used as [...] the Act. Fact Sheet for Healthcare Providers: https://www.[employer]/Documents/Xpert%20Xpre ss%20SARS%20CoV-2/Fact%20Sheets/3023802%20SAR S-COV-2%20HEALTHCARE%20PROVIDERS%20FACT%20SHEE T.pdf Fact Sheet for Healthcare Patients: https://www.[employer]/Documents/Xpert%20Xpre ss%20SARS%20CoV-2/Fact%20Sheets/3023801%20SAR S-COV-2%20PATIENT%20FACT%20SHEET.pdf Performing Laboratory: [address] [place] [address] Performing Organization Address City/State/Zipcode Phone Number [place] [phone] CENTER Manual Differential (11/02/2019 7:45 PM CDT) % Neutros 99 % [facility] % Monos 1 % [facility] # Neutros 35.64 (H) 1.78 - 5.38 K/ul [facility] # Monos 0.36 0.30 - 0.82 K/uL [facility] Total Counted 100 [facility] WBC Morphology Normal [facility] Platelet Morphology Normal [facility] Polychromasia 1+ few [facility] Anisocytosis 1+ few [facility] Microcytes 1+ few [facility] Macrocytes 1+ few [facility] Poikilocytes 2+ moderate [facility] Fulton Cells 1+ few [facility] Platelet Conc Adequate [facility] Specimen Blood Narrative Performed At Compensation Adjuster ID - Judy Mena [facility] User comments: Slide comments: Performing Organization Address City/State/Zipcode Phone Number [address] [address] CENTER B-type Natriuretic Factor (BNP) (11/02/2019 7:45 PM CDT) BNP 1,394 (H) 0 - 100 pg/mL [facility] Specimen Blood Narrative Performed At Compensation Adjuster ID - [facility] Performing Organization Address City/State/Zipcode Phone Number [address] [address] [place] Respiratory Panel [facility] (11/02/2019 7:24 PM CDT) Human Metapneumovirus Not detected Not detected, [facility] Equivocal [facility] Rhinovirus Not detected Not detected, [facility] [employer] Influenza A Not detected Not detected, [facility] [employer] [facility] INFLUENZA A (NO SUBTYPE) [facility] Influenza A subtype H1 [facility] Influenza A Subtype H3 [facility] Influenza A Subtype H1-2009 [facility] Influenza B Not detected Not detected, [facility] Equivocal [facility] ER Respiratory Syncytial Virus Not detected Not detected, [facility] Equivocal [facility] ER Parainfluenza Virus 1 Not detected Not detected, [facility] Equivocal [facility] ER Parainfluenza Virus 2 Not detected Not detected, [facility] Equivocal [facility] ER Parainfluenza virus 3 Not detected Not detected, [facility] Equivocal [facility] ER Parainfluenza Virus 4 Not detected Not detected, [facility] Equivocal [facility] ER Adenovirus Not detected Not detected, [facility] Equivocal [facility] ER Coronavirus 229E Not detected Not detected, [facility] Equivocal [facility] ER Coronavirus HKU1 Not detected Not detected, [facility] Equivocal [facility] ER Coronavirus NL63 Not detected Not detected, [facility] Equivocal [facility] ER Coronavirus OC43 Not detected Not detected, [facility] Equivocal [facility] ER Bordetella Pertussis Not detected Not detected, [facility] Equivocal [facility] ER Chlamydophila Pneumoniae Not detected Not detected, [facility] Equivocal [facility] ER Mycoplasma Pneumoniae Not detected Not detected, [facility] Equivocal [facility] ER Specimen Nasopharyngeal Narrative Performed At Other viruses and bacteria not targeted by [facility] this PCR panel cannot be excluded; therefore clinical correlation and follow up of serology, culture results, and other molecular studies is required. The results are not intended to be used as the sole means for clinical diagnosis or patient management decisions. This sample was tested at the [facility] using the [employer] FilmArray Respiratory Panel. It is FDA cleared and has been verified and approved by the [facility] for clinical use on nasopharyngeal swab specimens. The performance of the FilmArray RP has not been established in individuals who received influenza vaccine.Recent administration of a nasal influenza vaccine may cause false positive results for Influenza A and/or Influenza B. Performing Organization Address City/State/Zipcode Phone Number [facility] MEDICAL [address] [place] [address] CENTER ECG 12 lead (11/02/2019 7:05 PM CDT) Specimen Narrative Performed At Ventricular Rate 93 BPM GE MUSE Atrial Rate 93 BPM P-R Interval 158 ms QRS Duration 148 ms Q-T Interval 424 ms QTC Calculation(Bazett) 527 ms P Derby 54 degrees R Derby 2 degrees T Derby 153 degrees Sinus rhythm with Premature supraventric ular complexes Left bundle branch block Abnormal ECG No previous ECGs available Confirmed by MD Anderson Roberto ([id number]) on 11/03 5:03:32 PM Procedure Note Interface, External Ris In - 11/04/2019 5:03 PM CDT Ventricular Rate 93 BPM Atrial Rate 93 BPM P-R Interval 158 ms QRS Duration 148 ms Q-T Interval 424 ms QTC Calculation(Bazett) 527 ms P Derby 54 degrees R Derby 2 degrees T Derby 153 degrees Sinus rhythm with Premature supraventric ular complexes Left bundle branch block Abnormal ECG No previous ECGs available Confirmed by MD Anderson Roberto ([id number]) on 11/04/2019 5:03:32 PM Performing Organization Address City/State/[facility] Phone Number SANDY BUTLER after 12/05/2018 Insurance Payer Benefit Plan / Group Subscriber ID Type Phone A ddress [facility] HMO xxxxxxxxx MEDICARE MGD CARE CDC REVIEW CDC REVIEW xxxxxxxx [address] [place] [address] Advance Directives For more information, please contact:[address] [phone] Code Status Date Activated Date Inactivated Comments Full Code 11/15/2019 3:09 PM 11/23/2019 5:51 PM This code status was determined by: Patient Full Code 11/02/2019 8:35 PM 11/15/2019 3:09 PM This code status was determined by: Patient
--- OUTSIDE RECORDS SUMMARY | 2019-12-06 21:43 | XMS REPORT | Continuity of Care Document ---
:1930 Author Organization [facility] t Address [address] [place] [address] [address] [place] [address] Care Team Providers Name Role Phone Adrian [...] Admitting Clinician Unavailable Payers Payer Name Policy Type Policy Number Effective Expiration Source Date Date [facility] x[facility] MGD - Medical CAREUNITED MEDICARE Donnae r HMOxxxxxxxxx CDC REVIEWCDC xxxxxxxx [facility] REVIEWxxxxxxxxPO - Medica l CANDYLILIA [place] [phone] UHC MEDICAREUHC xxxxxxxxx 2018 [place] MEDICARE 00:00:00 [facility] HMO/PPOxxxxxxxxx [id number] Problems Condition Condition Condition Status Onset Resolution [...] l 00 Center Squamous Squamous Disease Active [facility]29 [facility] - [...] and [facility] to Comments) 5- bleeding [facility] - adverse 00:00: per pt's Medical reaction 00 [place] s Family History Family Member Diagnosis Comments Start Date Stop Date Source Family member Coronary artery disease [facility] Family member Stroke [facility] Social History Social Habit Start Date Stop Date Quantity Comments Source History SDNH [facility] - Alcohol Std Drinks Medica [facility] History SDOH [facility] - Alcohol Binge Medical [facility] ter Sex Assigned At [facility] kes [facility] History SDOH 2019-11-02 2019-11-[address] [facility] - Alcohol Frequency 00:00:00 00:00:00 [facility] Alcohol intake 2018-12-20 2018-12-20 Current [facility] thodist 00:00:00 00:00:00 non-drinker of alcohol (finding) Smoking Status Start Date Stop Date Source Never smoker [facility] edical [place] Medications Ordered Filled Start Stop Current Ordering [...] capsule 5-27 [facility] - 00:00: Medical 00 [place] furosemide 2020- No [facility] (LASIX) 20 5-25 06-19 [facility] - MG tablet 00:00: 00:00 Medical 00 :00 [place] metoprolol Yes TAKE 1 [place] succinate 1-17 TABLET BY Metho di XL 00:00: MOUTH st (TOPROL-XL) 00 DAILY 25 mg 24 hr tablet metoprolol 2019- No TAKE [address] [facility] succinate 1-15 06-17 TABLET BY Luke s - (TOPROL-XL) 00:00: 00:00 MOUTH Medi darryl 25 MG 24 hr 00 :00 DAILY Center tablet metoprolol 2019- No TAKE 1 [place] succinate -14 06-22 TABLET BY Meth jesus XL 00:00: [...] Source Systolic blood 2019-11-23 11:50:00 109 mm[Hg] [facility] Diastolic blood 2019-11-23 11:50:00 53 mm[Hg] [facility] Heart rate 2019-11-23 11:50:00 70 /min [facility] Body temperature 2019-11-23 11:50:00 36.61 Iliana [facility] Respiratory rate 2019-11-23 11:50:00 17 /min [facility] Oxygen saturation in 2019-11-23 11:50:00 99 /min [facility] Arterial blood by Medical Ce nter Pulse oximetry Body weight Measured 2019-11-23 06:31:00 55.792 kg [facility] BMI 2019-11-23 06:31:00 18.70 kg/m2 [facility] Body height 2019-11-03 03:16:00 172.7 cm [facility] Systolic blood 2018-12-20 14:26:00 120 mm[Hg] [facility] pressure Diastolic blood 2018-12-20 14:26:00 68 mm[Hg] [facility] pressure Heart rate 2018-12-20 14:26:00 69 /min [facility] Body height 2018-12-20 14:26:00 172.7 cm [facility] Body weight 2018-12-20 14:26:00 77.021 kg [facility] BMI 2018-12-20 14:26:00 25.82 kg/m2 [facility] Procedures Procedure Date / Time Performing Clinician Source Performed ARRYTHMIA IMPLANT REPORT - 2019-11-27 08:21:23 Provider, [facility] RHYTHM STRIP - SCAN 2019-11-27 08:21:00 Provider, [facility] CARDIAC CATH REPORT - SCAN 2019-11-27 08:20:58 Provider, [facility] CARDIAC CATH REPORT - SCAN 2019-11-27 08:20:57 Provider, [facility] UROLOGY REPORT - SCAN 2019-11-27 08:20:54 Provider, [facility] BASIC METABOLIC PANEL (7) 2019-11-23 04:50:00 Lazarus, Yoly [facility] MAGNESIUM 2019-11-23 04:50:00 Lazarus, [facility] PHOSPHORUS 2019-11-23 04:50:00 Lazarus, [facility] PLATELET AGGREGATION: 2019-11-23 04:50:00 Gabriel Streeter [facility] FUNCTION SCREEN [facility] XR CHEST 1 VIEW 2019-11-22 09:12:00 Lazarus, [facility] PORTABLE/BEDSIDE [facility] BASIC METABOLIC PANEL (7) 2019-11-22 04:23:00 LazarusYoly [facility] MAGNESIUM 2019-11-22 04:23:00 [facility] 2019-11-22 04:23:00 Lazarus, [facility] CBC W/PLT COUNT & AUTO 2019-11-22 04:23:00 Lazarus, [facility] ARRYTHMIA IMPLANT REPORT - 2019-11-21 14:41:20 Provider, [facility] LIMITED 2D ECHOCARDIOGRAM 2019-11-21 10:16:19 Gabriel Streeter [facility] XR CHEST 1 VIEW 2019-11-21 08:40:00 Lazarus, [facility] PORTABLE/BEDSIDE [facility] BASIC METABOLIC PANEL (7) 2019-11-21 04:57:00 LazarusYoly [facility] MAGNESIUM 2019-11-21 04:57:00 Lazarus, [facility] PHOSPHORUS 2019-11-21 04:57:00 Lazarus, [facility] CBC W/PLT COUNT & AUTO 2019-11-21 04:57:00 Lazarus [facility] BASIC METABOLIC PANEL (7) 2019-11-20 04:33:00 [facility] 2019-11-20 04:33:00 Lazarus, [facility] PHOSPHORUS 2019-11-20 04:33:00 Lazarus, [facility] CBC W/PLT COUNT & AUTO 2019-11-20 04:33:00 Lazarus [facility] XR CHEST 1 VIEW 2019-11-20 01:46:00 Lazarus [facility] BASIC METABOLIC PANEL (7) 2019-11-19 03:17:00 [facility] 2019-11-19 03:17:00 Lazarus [facility] PHOSPHORUS 2019-11-19 03:17:00 Lazarus [facility] CBC W/PLT COUNT & AUTO 2019-11-19 03:17:00 Lazarus [facility] XR CHEST 1 VIEW 2019-11-19 02:12:00 Lazarus [facility] HEMOGLOBIN AND HEMATOCRIT 2019-11-18 22:07:00 Ryan Good [facility] BASIC METABOLIC PANEL (7) 2019-11-18 04:11:00 Lazarus Yoly [facility] MAGNESIUM 2019-11-18 04:11:00 Lazarus, [facility] PHOSPHORUS 2019-11-18 04:11:00 Lazarus, [facility] CBC W/PLT COUNT & AUTO 2019-11-18 04:11:00 Lazarus [facility] XR CHEST 1 VIEW 2019-11-18 01:48:00 Lazarus, [facility]/BEDSIDE [facility] HEMOGLOBIN AND HEMATOCRIT 2019-11-17 18:00:00 Jerry Milton [facility] BASIC METABOLIC PANEL (7) 2019-11-17 18:00:00 Jacy Mejia [facility] MAGNESIUM 2019-11-17 18:00:00 Jacy Mejia [facility] HEMOGLOBIN AND HEMATOCRIT 2019-11-17 12:13:00 KateyfranciscoJerry [facility] PLASMA FREE HEMOGLOBIN 2019-11-17 12:13:00 Karine Jerry [facility] XR CHEST 1 VIEW 2019-11-17 04:43:00 Lazarus [facility] PORTABLE/BEDSIDE [facility] BASIC METABOLIC PANEL (7) 2019-11-17 03:22:00 Yoly Qiu [facility] MAGNESIUM 2019-11-17 03:22:00 Lazarus [facility] PHOSPHORUS 2019-11-17 03:22:00 Lazarus [facility] CBC W/PLT COUNT & AUTO 2019-11-17 03:22:00 Lazarus [facility] TRANSFUSION SERVICE REPORT 2019-11-16 18:02:27 Provider [facility] SCAN [facility] XR CHEST 1 VIEW 2019-11-16 17:46:00 Viviane Hager [facility] CYTOLOGY 2019-11-16 17:02:00 Lazarus [facility] US THORACENTESIS 2019-11-16 17:00:00 Lazarus [facility] RHYTHM STRIP - SCAN 2019-11-16 15:40:23 Provider [facility] PT/APTT 2019-11-16 11:45:00 Lazarus [facility] PROTHROMBIN TIME/INR 2019-11-16 11:45:00 Lazarus [facility] 2D ECHO W/ DOPPLER 2019-11-16 10:23:38 Alexander Munson [facility] (CW/PW/COLOR) [facility] HEMOGLOBIN AND HEMATOCRIT 2019-11-16 09:39:00 Breanna Silva [facility] RETICULOCYTE COUNT 2019-11-16 09:39:00 Lazarus, [facility] HAPTOGLOBIN 2019-11-16 09:35:00 Lazarus, [facility] BLOOD GAS, ARTERIAL 2019-11-16 04:30:00 Roberto, [facility] XR CHEST 1 VIEW 2019-11-16 04:14:00 Lazarus, [facility] PORTABLE/BEDSIDE [facility] BASIC METABOLIC PANEL (7) 2019-11-16 02:44:00 Lazarus, [facility] MAGNESIUM 2019-11-16 02:44:00 Lazarus, [facility] PHOSPHORUS 2019-11-16 02:44:00 Lazarus, [facility] LACTATE DEHYDROGENASE 2019-11-16 02:44:00 Lazarus, [facility] ([facility]) [facility] CBC W/PLT COUNT & AUTO 2019-11-16 02:44:00 Lazarus, [facility] BLOOD GAS, ARTERIAL 2019-11-16 00:18:00 KarenHenry [facility] BLOOD GAS, ARTERIAL 2019-11-15 22:12:00 Roberto, [facility] MAGNESIUM 2019-11-15 16:47:00 Roberto, [facility] COMPREHENSIVE METABOLIC 2019-11-15 16:47:00 Roberto, [facility] XR CHEST 1 VIEW 2019-11-15 16:46:00 Roberto, [facility] PORTABLE/BEDSIDE [facility] BLOOD GAS, ARTERIAL 2019-11-15 16:45:00 Roberto, [facility] CBC W/PLT COUNT & AUTO 2019-11-15 16:43:00 Roberto, [facility] PREPARE RBC 2019-11-15 16:14:00 Alexander Munson [facility] POCT-ACT 2019-11-15 13:54:00 Mayela Field [facility] CALCIUM, IONIZED 2019-11-15 13:28:50 Pereira, [facility] BLOOD GAS, ARTERIAL 2019-11-15 13:28:50 Tate [facility] SODIUM NA-STAT LAB 2019-11-15 13:28:50 Tate Pereira [facility] POTASSIUM-STAT LAB 2019-11-15 13:28:50 Randall [facility] GLUCOSE-STAT LAB 2019-11-15 13:28:50 Tate Pe[facility] HGB/HCT (H&H) - STAT LAB 2019-11-15 13:28:50 Tate Pereira [facility] POCT-GLUCOSE METER 2019-11-15 11:59:00 Mayela Field [facility] TRANSESOPHAGEAL ECHO 2019-11-15 10:49:52 Bryant [facility] COLOR-FLOW MAPPING 2019-11-15 10:33:26 Bryant [facility] CONT WAVE PULSED DOPPLER 2019-11-15 10:33:26 Bryant [facility] TAVR / ROMARIO MCR - IP 2019-11-15 09:37:00 Bryant [facility] - PROC ONLY Medical Center LEADLESS PACEMAKER 2019-11-15 09:37:00 Alexander Munson [facility] INSERTION [facility] XR CHEST 1 VIEW 2019-11-15 03:58:[address] [facility] PORTABLE/BEDSIDE [facility] BASIC METABOLIC PANEL (7) 2019-11-15 03:26:00 Yoly Qiu [facility] MAGNESIUM 2019-11-15 03:26:00 LazarusYoly underwood [facility] PHOSPHORUS 2019-11-15 03:26:00 LazarusYoly underwood [facility] APTT 2019-11-15 03:26:00 Ciara Posadas [facility] CBC W/PLT COUNT & AUTO 2019-11-15 03:26:00 LazarusYoly underwood [facility] XR CHEST 1 VIEW 2019-11-14 22:58:[address] [facility] PORTABLE/BEDSIDE [facility] CBC W/PLT COUNT & AUTO 2019-11-14 22:49:00 Laura Pavon [facility] TRANSFUSION SERVICE REPORT 2019-11-14 18:11:[address] [facility] - SCAN Scanning [facility] BASIC METABOLIC PANEL (7) 2019-11-14 05:29:00 LazarusYoly [facility] MAGNESIUM 2019-11-14 05:29:00 LazarusYoly [facility] PHOSPHORUS 2019-11-14 05:29:00 Lazarus, [facility] APTT 2019-11-14 05:29:00 Ciraa Posadas [facility] CBC W/PLT COUNT & AUTO 2019-11-14 05:29:00 Lazarus, [facility] XR CHEST 1 VIEW 2019-11-14 04:22:00 Lazarus, [facility] PORTABLE/BEDSIDE [facility] APTT 2019-11-14 00:51:00 Ciara Posadas [facility] APTT 2019-11-13 17:23:00 Ciara Posadas [facility] BLOOD CULTURE 2019-11-13 16:08:00 Mando Garcia [facility] URINALYSIS W/ REFLEX URINE 2019-11-13 12:05:00 Yoly Qiu [facility] APTT 2019-11-13 11:04:00 Ciara Posadas [facility] TYPE AND SCREEN, AUTOMATED 2019-11-13 11:04:00 Alexander Munson [facility] BASIC METABOLIC PANEL (7) 2019-11-13 04:34:00 LazarusYoly [facility] MAGNESIUM 2019-11-13 04:34:00 [facility] 2019-11-13 04:34:00 Lazarus [facility] HEPATIC FUNCTION PANEL 2019-11-13 04:34:00 Lazarus, [facility] CALCIUM, IONIZED 2019-11-13 04:34:00 [facility] 2019-11-13 04:34:00 Ciara Posadas [facility] CBC W/PLT COUNT & AUTO 2019-11-13 04:34:00 Lazarus, [facility] APTT 2019-11-12 20:00:00 Ciara Posadas [facility] BASIC METABOLIC PANEL (7) 2019-11-12 16:56:00 Yoly Qiu [facility] APTT 2019-11-12 12:39:00 Ciara Posadas [facility] BASIC METABOLIC PANEL (7) 2019-11-12 05:06:00 LazarusYoly underwood [facility] MAGNESIUM 2019-11-12 05:06:00 Yoly Qiu [facility] PHOSPHORUS 2019-11-12 05:06:00 [facility] AP[facility] 2019-11-12 05:06:00 Ciara Posadas [facility] HEPATIC FUNCTION PANEL 2019-11-12 05:06:00 Lazarus, [facility] CBC W/PLT COUNT & AUTO 2019-11-12 05:06:00 Lazarus [facility] APTT 2019-11-11 21:02:00 Ciara Posadas [facility] CYTOLOGY 2019-11-11 17:22:00 [facility] BODY FLUID CELL COUNT WITH 2019-11-11 13:09:00 Yoly Qiu [facility] APTT 2019-11-11 13:09:00 [facility] 1 VIEW 2019-11-11 11:40:00 LazarusYoly [facility] US THORACENTESIS 2019-11-11 11:27:00 Tom Stokes [facility] XR CHEST 1 VIEW 2019-11-11 08:51:00 [facility] BASIC METABOLIC PANEL (7) 2019-11-11 05:11:00 LazarusYoly underwood [facility] MAGNESIUM 2019-11-11 05:11:00 LazarusYoly underwood [facility] PHOSPHORUS 2019-11-11 05:11:00 LazarusYoly underwood [facility] CBC W/PLT COUNT & AUTO 2019-11-11 05:11:00 Lazarus, [facility] POCT-GLUCOSE METER 2019-11-10 11:52:00 DivyaCaitlynyasmine In [facility] POTASSIUM 2019-11-10 10:34:00 Laura Pavon [facility] MAGNESIUM 2019-11-10 10:34:00 LibradoLaura Rayne [facility] POCT-GLUCOSE METER 2019-11-10 07:46:00 Mayela Field [facility] POCT-GLUCOSE METER 2019-11-10 07:29:00 Mayela Field [facility] BASIC METABOLIC PANEL (7) 2019-11-10 03:51:00 LazarusYoly underwood [facility] MAGNESIUM 2019-11-10 03:51:00 [facility] PHOSPHORUS 2019-11-10 03:51:00 [facility]arsh [facility] PROTHROMBIN TIME/INR 2019-11-10 03:51:00 Jacy Mejia [facility] CBC W/PLT COUNT & AUTO 2019-11-10 03:51:00 LazarusYoly underwood [facility] POCT-GLUCOSE METER 2019-11-09 22:19:00 Mayela Field [facility] INTRAOPERATIVE PATH REPORT 2019-11-09 15:11:08 Luz Mullen [facility] - - SCAN Scanning [facility] POCT-GLUCOSE METER 2019-11-09 11:38:00 Mayela Field [facility] XR CHEST 1 VIEW 2019-11-09 11:16:00 Jacy Mejia [facility] - PORTABLE/BEDSIDE Medical Center BASIC METABOLIC PANEL (7) 2019-11-09 04:51:00 LazarusYoly underwood [facility] MAGNESIUM 2019-11-09 04:51:00 LazarusYoly underwood [facility] PHOSPHORUS 2019-11-09 04:51:00 [facility]arsh [facility] CBC W/PLT COUNT & AUTO 2019-11-09 04:51:00 Lazarus, [facility] POCT-GLUCOSE METER 2019-11-08 22:05:00 Tom Stokes In [facility] OXYGEN SATURATION, 2019-11-08 21:46:[address] [facility] LACTIC ACID, VENOUS 2019-11-08 21:46:00 Laura Pavon [facility] TRANSFUSION SERVICE REPORT 2019-11-08 17:51:58 Provider, Default [facility] - - SCAN [facility] POCT-GLUCOSE METER 2019-11-08 17:20:00 Tom Stokes In [facility] PULMONARY FUNCTION - SCAN 2019-11-08 14:30:05 Provider, Default [facility] POCT-GLUCOSE METER 2019-11-08 11:16:00 Tom Stokes In [facility] POCT-GLUCOSE METER 2019-11-08 07:36:00 Tom Stokes In [facility] BASIC METABOLIC PANEL (7) 2019-11-08 03:24:00 LazarusYoly underwood I [facility] MAGNESIUM 2019-11-08 03:24:00 [facility] PHOSPHORUS 2019-11-08 03:24:00 Lazarus, [facility] CBC W/PLT COUNT & AUTO 2019-11-08 03:24:00 Lazarus, [facility] REPORT OF PROCEDURE - 2019-11-07 16:40:[address] [facility] ENDOSCOPY [facility] EBUS FNA REQUEST 2019-11-07 16:11:18 Luis Alberto Santiago [facility] EBUS FNA REQUEST 2019-11-07 16:11:05 [facility] FINE NEEDLE ASPIRATE BY 2019-11-07 16:11:00 [facility] 2019-11-07 16:04:53 Luis Alberto Santiago [facility] FINE NEEDLE ASPIRATE BY 2019-11-07 16:04:00 Luis Alberto Santiago [facility] TISSUE EXAM 2019-11-07 15:42:55 Luis Alberto Santiago [facility] BRONCHOSCOPY,ENDOBRONCHIAL 2019-11-07 14:00:00 Luis Alberto Santiago [facility] ULTRASOUND (EBUS) [facility] TRANSTRACH/ TRANSBRONCH SAMPLING BRONCHOSCOPY,BRONCHIAL 2019-11-07 14:00:00 Luis [facility] ALVEOLAR LAVAGE [facility] ABORH, MANUAL 2019-11-07 08:19:00 Kaylie Dunlap [facility] CBC (HEMOGRAM ONLY) 2019-11-07 05:26:00 Yo Gonzalez [facility] COMPREHENSIVE METABOLIC 2019-11-07 05:26:00 Luis Alberto Santiago [facility] PROTHROMBIN TIME/INR 2019-11-07 05:26:00 Pamela [facility] APTT 2019-11-07 05:26:00 Pamela [facility] MAGNESIUM 2019-11-07 05:26:00 Sergei Schwarz [facility] TYPE AND SCREEN, AUTOMATED 2019-11-07 05:26:00 Luis Alberto Santiago [facility] CBC W/PLT COUNT & AUTO 2019-11-07 05:26:00 Luis Alberto Santiago [facility] XR CHEST 1 VIEW 2019-11-06 17:38:[address] [facility] PORTABLE/BEDSIDE Medical Center POCT-GLUCOSE METER 2019-11-06 17:15:00 Gabriel Streeter [facility] CT CHEST WITHOUT IV 2019-11-06 16:11:[address] [facility] SPIROMETRY 2019-11-06 14:45:00 Alexander Munson [facility] BASIC METABOLIC PANEL (7) 2019-11-06 13:23:00 Breanna Silva [facility] MAGNESIUM 2019-11-06 13:23:00 Breanna Silva [facility] POCT-GLUCOSE METER 2019-11-06 11:38:00 [facility] POCT-GLUCOSE METER 2019-11-06 07:29:00 [facility] VANCOMYCIN LEVEL, TROUGH 2019-11-06 03:40:00 Evette Thrasher [facility] CBC (HEMOGRAM ONLY) 2019-11-06 03:40:00 Yo Gonzalez [facility] BASIC METABOLIC PANEL (7) 2019-11-06 03:40:00 Breanna Silva [facility] MAGNESIUM 2019-11-06 03:40:00 [facility] 2019-11-06 03:39:00 Elkin Jarquin [facility] - PORTABLE/BEDSIDE [facility] CT BRAIN WITHOUT IV 2019-11-05 23:18:00 Alexander Munson [facility] POCT-GLUCOSE METER 2019-11-05 18:24:00 [facility] REPORT OF PROCEDURE - 2019-11-05 15:50:38 Provider, Luz [facility] - ENDOSCOPY SCAN Scanning [facility] R & L CATH / CORONARY 2019-11-05 13:30:00 Gabriel Streeter [facility] - ANGIOS (+/- LV) [facility] CAROTID DOPPLER BILATERAL 2019-11-05 12:38:00 Gabriel Streeter [facility] BASIC METABOLIC PANEL (7) 2019-11-05 12:03:00 Breanna Silva [facility] MAGNESIUM 2019-11-05 12:03:00 Ricardo [facility] POCT-GLUCOSE METER 2019-11-05 11:32:00 [facility] POCT-GLUCOSE METER 2019-11-05 07:14:00 [facility] CBC (HEMOGRAM ONLY) 2019-11-05 04:16:00 Lisa [facility] PT/APTT 2019-11-05 04:16:00 [facility] BASIC METABOLIC PANEL (7) 2019-11-05 04:16:00 Ricardo Breanna [facility] MAGNESIUM 2019-11-05 04:16:00 Ricardo [facility] BASIC METABOLIC PANEL (7) 2019-11-04 20:50:00 Ricardo Breanna [facility] MAGNESIUM 2019-11-04 20:50:00 Ricardo [facility] POCT-GLUCOSE METER 2019-11-04 16:56:00 [facility] BASIC METABOLIC PANEL (7) 2019-11-04 13:36:00 Ricardo Breanna [facility] MAGNESIUM 2019-11-04 13:36:00 Ricardo [facility] POCT-GLUCOSE METER 2019-11-04 11:55:00 [facility] POCT-GLUCOSE METER 2019-11-04 07:30:00 [facility] MAGNESIUM 2019-11-04 02:39:00 Ricardo [facility] BASIC METABOLIC PANEL (7) 2019-11-04 02:39:00 Ricardo Breanna [facility] CBC (HEMOGRAM ONLY) 2019-11-04 02:39:00 Lisa [facility] XR CHEST 1 VIEW 2019-11-04 01:03:00 Ricardo [facility] [employer] [facility] [employer]/BEDSIDE [facility] [place] POCT-GLUCOSE METER 2019-11-03 22:24:00 [facility] LACTATE DEHYDROGENASE 2019-11-03 19:12:00 [facility] (LD), PLEURAL FLUID Medical [facility] er BODY FLUID CULTURE + GRAM 2019-11-03 16:44:00 [facility] GLUCOSE PLEURAL FLUID 2019-11-03 16:44:00 [facility] FUNGUS CULTURE + SMEAR 2019-11-03 16:44:00 [facility] CYTOLOGY 2019-11-03 16:44:00 [facility] PROTEIN, TOTAL, PLEURAL 2019-11-03 16:43:00 [facility] XR CHEST 1 VIEW 2019-11-03 16:40:00 Russ Gilbert [facility]/BEDSIDE Medical Center US THORACENTESIS 2019-11-03 16:35:00 [facility] BLOOD CULTURE 2019-11-03 12:31:00 Ricardo [facility] MRSA SCREEN 2019-11-03 12:14:00 Ricardo, [facility] ASPERGILLUS GALACTOMANNAN 2019-11-03 12:10:00 Ricardo Breanna [facility] FUNGAL PANEL 2019-11-03 12:09:00 Ricardo [facility] BLOOD CULTURE 2019-11-03 12:07:00 Ricardo [facility] MISCELLANEOUS LAB ORDER 2019-11-03 12:07:00 Ricardo [facility] POCT-GLUCOSE METER 2019-11-03 10:33:00 [facility] STREP PNEUMONIAE ANTIGEN 2019-11-03 09:58:00 Ricardo [facility] LEGIONELLA URINE ANTIGEN 2019-11-03 09:57:00 Ricardo [facility] HISTOPLASMA ANTIGEN, URINE 2019-11-03 09:15:00 Breanna Silva [facility] CORTISOL 2019-11-03 08:46:00 Ricardo, [facility] TSH/FREE T4 IF INDICATED 2019-11-03 08:46:00 Ricardo [facility] PROCALCITONIN 2019-11-03 08:46:00 [facility] HEMOGLOBIN A1C 2019-11-03 08:46:00 Ricardo [facility] T4, FREE 2019-11-03 08:46:00 Ricardo [facility] XR CHEST 1 VIEW 2019-11-03 08:11:00 Ricardo [facility] [facility] LACTIC ACID, VENOUS 2019-11-03 07:46:00 [facility] BASIC METABOLIC PANEL (7) 2019-11-03 07:45:00 [facility] HEPATIC FUNCTION PANEL 2019-11-03 07:45:00 [facility] CBC (HEMOGRAM ONLY) 2019-11-03 06:11:00 Ciara Posadas [facility] BLOOD GAS, ARTERIAL 2019-11-03 01:27:00 Ciara Posadas [facility] TROPONIN I 2019-11-03 01:24:00 Ciara Posadas [facility] VENOUS DOPPLER LEGS 2019-11-03 01:04:00 Ciara Posadas [facility] CTA ABDOMEN & PELVIS 2019-11-03 00:30:[address] [facility] CTA CHEST 2019-11-03 00:30:00 Zenon Gomez [facility] TROPONIN I 2019-11-02 23:45:00 Ciara Posadas [facility] CRITICAL CARE 2019-11-02 23:37:13 Ciara Posadas [facility] ED ECG INTERPRETATION 2019-11-02 23:37:13 Ciara Posadas [facility] 2D ECHO W/ DOPPLER 2019-11-02 21:23:00 Herm[place], [facility] - (CW/PW/COLOR) [facility] BLOOD GAS, ARTERIAL 2019-11-02 20:56:00 Ciara Posadas [facility] URINALYSIS W/ REFLEX URINE 2019-11-02 20:56:00 Ciara Posadas [facility] SARS-COV2/RT-PCR ([facility] & 2019-11-02 19:49:00 Ciara Posadas [facility] - REF LABS) [facility] TROPONIN I 2019-11-02 19:45:00 Ciara Posadas [facility] BASIC METABOLIC PANEL (7) 2019-11-02 19:45:00 Ciara Posadas [facility] PT/APTT 2019-11-02 19:45:00 Ciara Posadas [facility] HEPATIC FUNCTION PANEL 2019-11-02 19:45:00 Ciara Posadas [facility] B-TYPE NATRIURETIC FACTOR 2019-11-02 19:45:[address] [facility] (BNP) [facility] LACTIC ACID, VENOUS 2019-11-02 19:45:00 Ciara Posadas [facility] APTT 2019-11-02 19:45:00 Ciara Posadas [facility] CBC W/PLT COUNT & AUTO 2019-11-02 19:45:[address] [facility] (CELLAVISION MANUAL DIFF) 2019-11-02 19:45:00 Ciara Posadas [facility] XR CHEST 1 VIEW 2019-11-02 19:33:[address] [facility] PORTABLE/BEDSIDE [facility] RESPIRATORY PANEL [facility] 2019-11-02 19:24:00 Danial Ortega [facility] ECG 12-LEAD 2019-11-02 19:05:06 Ciara Posadas [facility] Plan of Care Planned Activity Planned Date Details Comments Source Future Scheduled 2020-02-05 INFLUENZA VACCINE (#1) [facility] 00:00:00 [code = INFLUENZA Medical Ce nter VACCINE (#1)] Future Scheduled 2020-01-05 INFLUENZA VACCINE [facility] 00:00:00 [code = INFLUENZA VACCINE] Future Scheduled 2019-06-06 Medicare IPPE (WELCOME [facility] Test 00:00:00 TO MEDICARE) [code = Medical Center Medicare IPPE (WELCOME TO MEDICARE)] Future Scheduled 1995 65+ PNEUMOCOCCAL [facility] Test 00:00:00 VACCINE (1 of 2 - PCV13) [code = 65+ PNEUMOCOCCAL VACCINE (1 of 2 - PCV13)] Future Scheduled 1997 PNEUMOCOCCAL 65+ [facility] Test 00:00:00 LOW/MEDIUM RISK (1 of Medica l Center 2 - PCV13) [code = PNEUMOCOCCAL 65+ LOW/MEDIUM RISK (1 of 2 - PCV13)] Future Scheduled 1980 SHINGLES VACCINES (#1) [place] [facility] [facility] Test 00:00:00 [code = SHINGLES VACCINES (#1)] Results Test Description Test Time Test Comments Results Result Comments Source Fungus culture + smear 2019-12-04 17:20:00 Test Item Value Reference Range Interpretation Comme nts Result (test code = 6463-4) No fungus isolated in 28 days Fungus Smear (test code = 1406) No fungi seen [facility] [id number] 17:20:00 Test Item Value Reference Range Interpretation Comments CULTURE (BEAKER) (test No fungus isolated in code = 1095) 28 days FUNGUS SMEAR (BEAKER) No fungi seen (test code = 1406) U/S, [id number] 17:34:00Laterality?->RightReason for exam:- >Recurrent Plueral effusionShould this be performed at the bedside?- >YesLabs to be Ordered:->CytologyLabs to be Ordered:->Body Fluid Culture (w/Gram Stain, C\\T\\S)FINAL REPORT Exam: Ultrasound guided thoracentesis Clinical History: Right-sided Pleural Effusion [facility] Cutter: Viviane Hager PA-C Supervising Physician: Maureen Fan [...] patient left the department in stable condition. Impress ion: Ultrasound guided right sided thoracentesis. Signed: Maureen Fan Verified Date/Time: 11/23/2019 17:34:12 Reading Location: [address] Ultrasound Reading Room US [id number] 17:34:00Interface, External Ris In - 11/23/2019 5:36 PM CDTFINAL REPORT Exam: Ultrasound guided thoracentesis Clinical History: Right-sided Pleural Effusion [facility] Cutter: Viviane Hager PA-C Supervising Physician: Maureen Fan [...] Fan Verified Date/Time: 11/23/2019 17:34:12 Reading Location: [address] Ultrasound [facility] Function [id number] 15:57:00 Test Item Value Reference Range Interpretation Comments Pathologist: (test code Abdirashid Montes M.D. = 2622) (electonic signature) Platelets (test code = 198 150- 450 K/CU MM 2656) ADP (test code = 71 % 62-100 32678-9) Platelet Rich Plasma 268 200- 300 k/cu mm (test code = 2134) Plt. Function Screen Normal aggregation Interpretation (test results with ADP. code = 4655) No evidence of platelet dysfunction or P2Y12 inhibitor effect. FAIZA (test code = FAIZA) Platelet Function Screen results may be falsely low with platelet counts<75,000/cu mm.Recycling Manager ID - [id number] [facility] Center[facility]ATELET AGGREGATION: FUNCTION [id number] 15:57:00 Test Item Value Reference Range Interpretation Comments [id number] Abdirashid Montes M.D. (BEAKER) (test code = (electonic signature) 2622) PLATELET COUNT AGG 198 K/CU MM 150-450 [...] may be falsely low with platelet counts<75,000/cu mm.Recycling Manager ID- [id number] [id number] 06:39:00 Test Item Value Reference Range Interpretation [...] (test code = 8.3 mg/dL 8.4-10.2 L 14779-8) EGFR (test code = 78 mL/min/1.73 [place] [address]-0) NOT ACCURATE CREATININE CLEARANCE IN PREDICTING GLOMERULAR FILTRATION RATE . ESTIMATED GFR I S NOT APPLICABLE FOR DIALYSIS PATIENTS. FAIZA (test code = FAIZA) Recycling Manager ID - RUFUS Lab Interpretation Abnormal (test code = 35791-6) [facility] 06:39:00 Test Item Value Reference Range Interpretation Comments Magnesium (test code = 2.1 mg/dL 1.6-2.6 06893-7) FAIZA (test code = FAIZA) Recycling Manager ID - [facility] Lab Interpretation (test Normal code = 09584-9) [facility] Center[facility]osph[facility]2020-06-19 06:39:00 Test Item Value Reference Range Interpretation Comments Phosphorus (test code = 3.2 mg/dL 2.3-4.7 2777-1) FAIZA (test code = FAIZA) Recycling Manager [facility] Lab Interpretation (test Normal code = 47775-2) [facility] CenterPHOSPHORUS2020-06-19 06:39:00 Test Item Value Reference Range Interpretation Comments PHOSPHORUS (BEAKER) (test code = 3.2 mg/dL 2.3-4.7 604) Recycling Manager ID - RUFUS [id number] 06:39:00 Test Item Value Reference Range Interpretation Comments MAGNESIUM (BEAKER) (test code = 2.1 mg/dL 1.6-2.6 627) Recycling Manager ID - [facility] METABOLIC [id number] 06:39:00 Test Item Value Reference Range Interpretation [...] 8.4-10.2 L (test code = 697) EGFR (FOSTER) (test 78 mL/min/1.73 ESTIMA MANDO GFR IS code = 1092) sq m NOT ACCURATE CREATININE CLEARANCE IN PREDICTING GLOMERULAR FILTRATION RATE . 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 Signed: Abdullahi Penn Verified Date/Time: 11/22/2019 11:14:15 Reading Location: [facility] Reading Room XR chest 1 view portable / [id number] 11:14:00 Interface, External Ris In - 11/22/2019 11:16 AM CDTFINAL REPORT CLINICAL HISTORY: RLL Carcinoma, frequent pleural effusion. TECHNIQUE: 1 view of the chest. COMPARISON: 11/21/2019IMPRESSION: The right PICC line is unchanged. Right mid and lower lung pleural parenchymal opacity appears increased in prominence. The left lung remains well-aerated. The cardiomediastinal silhouette is magnified by technique. Signed: Abdullahi Penn Verified Date/Time: 11/22/2019 11:14:15 Reading Location: [facility] Reading Room [facility]2020-06-18 05:13:00 Test Item Value Reference Range Interpretation Comments PHOSPHORUS (BEAKER) (test code = 3.4 mg/dL 2.3-4.7 604) Recycling Manager ID - PIAYA [id number] 05:13:00 Test Item Value Reference Range Interpretation Comments MAGNESIUM (BEAKER) (test code = 2.2 mg/dL 1.6-2.6 627) Recycling Manager ID - PIAYA LBASIC METABOLIC [id number] 05:13:00 Test Item Value Reference Range Interpretation [...] S NOT APPLICABLE FOR DIALYSIS PATIEN TS. Recycling Manager ID - PIAYA LCBC with platelet count + automated [id number] 04:45:00 Test Item Value Reference Range Interpretation [...] 450 K/CU MM MPV (test code = 42859-0) 9.7 fL 9.4-12.4 nRBC (test code = [...] 2801) Lab Interpretation (test code = Abnormal 86483-4) [facility] W/PLT COUNT & AUTO [id number] 04:45:00 Test Item Value Reference Range Interpretation [...] PERCENT (BEAKER) (test code = 2801) Tissue [id number] 16:58:00 Test Item Value Reference Range Interpretation Comments Case Report (test code Surgical Pathology = 104) Report Case: [id number] Authorizing Provider: Luis Alberto Santiago MD Collected: 11/07/2019 03:42 PM Ordering Location: [place] [address] CCU Received: 11/07/2019 03:49 PM Pathologist: Lala Jimenez MD Specimens: A) - Lung, Right Lower Lobe, Right lower lobe endobronchial tissue B) - Lung, Right Lower Lobe, TBBX. Process in Cytology for Collodion Bag, Reflex Genetic Markers. ADDENDUM 3 (test code = u1ytyIJsFJMyzBNxSnKaRR 3383) ScMLFhk9nkUWPxkTZgJcMz MzNcZnRuYmpcdWMxXGRlZm Tqb5gml882iNOst0zyEESb MvM4rCQgGWBkoMYnR314y8 lhg0jqpuKitAE2CDFlFFS4 BFxsruVmenQ5HQsgxUNiZh V1BRfweqWpLOpkvtAjvxAf Sen6NYApC271MGU2xHerj1 sqBKQ3AEAcBYRrNaCjJd0u lIFlX437RHCwEMWYZHLbuJ i9RBZofhFlxdFksBCIm172 D156g1ukPPDqqjIslTrAme fgt2ndG050DHDlxAQspnOg ZhYcJSIkgTKisCR8QKOdTY 3mcpokPNdkRJklWMWjckR9 UOLveZBfX0CpQOVkRS2leo luUKX4QZciHJZtAAG0LdQn YLUct4Eoopy9BzOdio0dpx 52LOZ7k0DfdLapYGL8KCT9 TsNsAq6kyVFyMJWjXW1eSw KntVDtRWHiaw08rWxsJRtj eqYceX3kCyGoJMVfkHXsCM DcZM5dlCIuCSJlcV2qslsc XHBnYnJkcmhlYWRccGdicm OwBz1csIuzLNI0MKdcC6kb bX6sGaU5TQxdV7nmvC7dEY r6RNwcxOE9QYEboH2nGO4x pglbn7ycMHtoTIyzENHfoz Z5rjO7UUMlpOWkN7OakG0v SHGoKK3mqnibc7rrPUZ3NI rwZDMkYUB0ZtYbSTUxv8Pi rfq0RhPad6FqaNRgMRczV9 5as001ZYXezdZmU2lepFMz decjcKDedwhoUHpzvbL6EC FsXHBsYWluXGYwXGZzMjBc bGFuZzEwMzNcaGljaFxmMF sdIxYqRMPcOKdbK1tmKbJw ZnMyMCBUSElTIEFEREVORF XVGOhJTHkHC3KZHWFFKcFY FBBPHsGtTJnARZEOU3OMHS WKImJFK2SPZL0VFSHYGK7E MEbzM63uOgqWJ6gnDeVqVR WTBD1BU1vYAp3NNXESBNjB Vy1QNAFKOutYMrxuxBRbDX TfxbKaVAAII4AsHZBERNXX RURccGFyXHBhciBQbGVhc2 EfcwBwATYydM4jhIjrECJx BA8uSLJtotMmz1O6BCBjzm HsAWLzkMtiklCrXMmoUz9p jSK3iU1hATHlwg2= ADDENDUM 2 (test code = o7hktJVaZRLqnHMzZsEiUB 3382) HdQZEbz6tlCBUekBWcKfTk MzNcZnRuYmpcdWMxXGRlZm Cmt1olo433nPEam6hfPYZd JiL1aIZxDZCywGMwE041VU IbBBiuu5sqn7IcGBSqtXRv h6V7BZAOfcneaLl4lKgwB5 0yl8D2EbozW5qvUOJhBOVx T6EuLY9uCXFfGwb9AEE1FK O4EPIqFYRyB8LnBF4xXPEr oBVbPVl5m4zjrYhcQEZdQV M1f2wiAOfljaLaAO5ajz0c yTd1j6gamsNfAOBhZDNywS OZELEmL6OrsZjaPk5zwSo2 nUtmGzlxDVA6Lth6PQ0onk 41ezg4aFgeDGHedzhaRrE1 JAzsIYWxgfjgEXo6YGwyOJ IkrAE9SZKyjBJeF6OnQNAr ZP0tdxu5KKR9WIdzQEIhTi L5ARDvoMZrOYDbjUrbFMkn a194LSO1LpJdBI9aF4Kcu4 R6qN0kfSIfYIWhtEEkFwQa ORNepb3hbPJoVMeny1OfNB Z6djV8zOOwyISaSGJiQK12 Icnil3VsZijxGTR9IKRimw Zkt9Xfh0rhVtFzsiXcH6yr U7SdLRRsKZRqEEElRgKtct Wtv0Hlz6EftQRvpVb0y2nr EALaBIWagJkrg9ahSJO2RW QfE5C2tGWtv2lkWFhpGVYh fDL9xdO6ESLwyTZxE0RdtX 7wTDMcNA7dmjl9j3npEYV8 BUfdDXVvVvT8uiQ5JXXbsR ObPJNkdLefPTydz885JSO1 WeXoPTTqa8XhK3GeuJwpO6 2ewOkdR99cWEDyrUmykQ6w kZjtwE6jZnKgFiQjAMgtmS xwbGFpblxmMVxmczIwXGxh thioRTLzUOqaF0gtQqPrQS MssAjwBTzwa5ZmRQDxTFFd OgDdZZwobqKjSYZxriK6rL ExfiWgq8L1OJTpoO0arlGj s3D3KSUtHTWeTWG5mOUkf1 YgQlJBRiBtdXRhdGlvbiBv joLkuZ3ufgYPWO1kKGwfXU Kkl8Mms9QzQPPownElONVb YjFMH9ZYB05MC1HvMOAAQ4 IYVI3ZZFCQLbhrJRFrHXPq HADUODWmRJR9RXHnm261TA 9akVVkYVSvX4IcMOoeYNTm cGFyIFBsZWFzZSByZWZlci Z7dwF5rWMnm2Kdqs2cBWTk IKQracRmIc0jLVZ3ZCf0DG Tbs80egCEjYNRlmj1= ADDENDUM (test code = m9xlmWJvNQJnvHMgEjEbRK 3381) DrZHTgb3shHWOdfQJzPaYl MzNcZnRuYmpcdWMxXGRlZm Lmp2knw187aPHvy8ztUHBe BeL0lCEnFNDvgYHtQ109s5 hwu6eaydYlqZZ1KTBbQHA9 NQwbknPgehV1XYgypHNpXy N0UWijyfMlRPwwwbUycgUh Osw5QSYcX724IUH3qPyvh2 hsANB0IXXvMNLvHzNgNg2z oLLvP250TVAoIJPMZSCqiZ i1GJSxikDjblWexYTXm802 V772j6ljVAWeimIxxWsLak imh2odQ936ZEXajDBwhcGk JyXnOOYqbUIxxBF4VZNiHU 8opjvyYHnmKNaaILLejcW4 AOAutWXfT4EzELCiXZ3bxt gnRTI0CCacPTIqYLP0MlEf OLZis1Eqifs9MkNjqz1boa 15PSK0o1PyzPrnFYN2RFH5 YiKeHn1ifBHnEPHjAY4xNg FkyKKhJHErvg82cImsVGjt vgLtyA3mSbSnDLCygTAcDF JoBY9cqIDhUSZifE9wadpm XHBnYnJkcmhlYWRccGdicm MyRj1hxSomNGE3MZpuZ0zy pO2dCjI4HZryA5dyeC2eDE c7NBjfoIT2YJBwwR9vOJ6s ttvjj5wsOEccZTjlZMVbah L6nlK9QUVefWLsA8OvzU2m SKOfJQ8phebxt1daMXJ5NT nwDKEpSXW4FqYaTUOmr9Zu uup5PsNqi1NfyWVgKBvtO8 8ix234EIZdoiLtJ7ikrESd jlyzxXGgffafLQpfipZ1JL FsXHBsYWluXGYwXGZzMjBc bGFuZzEwMzNcaGljaFxmMF ghPtZvYIRaSXmlZ0gnXeJa ZnMyMCBUSElTIEFEREVORF OXTGtQZSgBS0SMFVDDInWQ PZMJTvRlGHqAOIEJA9RKME FiH5SpGkqAWLBBE4PZPQVF SDSNSYEnHI7PDMRXUQPLZW QOEJTiMajgDAHtWE5gEYuU RODeEPBtEZ1hGF4tcpE5BU 8ndTHGULRnJ3KgFYxmWRKq VV0hKa6BPIpyzjNrJoLdec MhwlyemBDxuNnmUz91AQJn nRQwgXNuDAfSVGmtrDr0QB lccGFyICAtIFBELUwxIDIy QzMgRkRBIChLRVlUUlVEQS tdIj8pCR3QN7kXHJrpCBvP DsZGF6HOTcPKhV2cnzImtt 7mk1D6bE8hXEXvz0VoErAa FUJLpkQxonNtsSa7YXOkMW BhclxwYXIgUGxlYXNlIHJl SsJvVQBlQIEbCUBxP4Ppwj YjWUUihD0kbONgx3WtVCRs zLQwf10eyIIeykFiuo8obF bvyobxLYKcXNwcILNjd9Qm w1YwHGYmkbVzUAKgXjEHF2 HNS57FT1PsNIENK3ORGU3M SUVTXHBhcn0= DIAGNOSIS (test code = d4vwxSPwUYLtt7hcVQXnaS 3220) FuZzEwMzNcZnRuYmpcdWMx COdsnwFzENtfe9JgQ6XmGn AwMFxhbnNpXGRlZmxhbmcx MLHrDQI9gqHiGUUoHPviOZ RmUTaiKu7wvAFacBlqFaCj VBUjs1obfmQCmzuccNz1z3 jhOZQxKoS5nLYmZMetX8iu prUrmEVoVNZhGVi2vI12LN KeqU0ivODvKQlairLxFmT9 RPmhXCJcZdZ7ANNodPViGN ViA3puMYUeJZzlEIEfSJvj iSVsGDA3rMowy4A6uMEbcV HafDzrEmBpMeCkKGLQs0Jq CEq3ePoyA1GcOSEbZsR9jH QgUGFyYWdyYXBoIEZvbnQ7 jI13DNfuaeR3lRSxl0Cdw7 7wr123nD7xaVNpUOF7TQBg WNYaaNMkTVIoGVL7FRCisH SjB2y0PeDmaQJpB1D6YhSz dRItV1P8AhAdsTBaS3H4Mx YfvZOyUYSkoMPeOs9tcDZh dPIwwn6zrp11SJL4i1VuaX ovLGI2SDC3ZkKaIn4htUAk RWWhLR4lTkBpgXTuVAWgah 75hCxcLYczmiLluY3dYuCf FGZfdMDeGYGzHW6ohRFfEQ MjhI1jqhmhHTIcMuWhwifn FHKpsKzhqgAmWy8mrZiuCB P0AVmsN6jdvF6lUyE7RHue L7lwaE4jHKv8FDrwyGA5JF XuyB2fGY1pblsnz9wlCnMf BR8bggsiy9mrRlCcKX8uqf d4g9qbCfZjUC9mkbhjq7hk NzIwXGhlYWRlcnkwXGZvb3 AfcqqmZBKup5BhT4HanVad O37vvJdbZ80vIRXslWyxsQ 5xdVoegZ4iLoMxCiHdJBsz bFxwbGFpblxmMVxmczIwXG wpogopLVFpKHbeB5woItEb EBKcrQoeCOvvp7NwYVNlBE FsZsTiMC3uLFIPLpugCndL ZQXnPA2DHDRjKD5YFFnkOB 2CR7AQW66GEFkYSCAVLB0J N6k4MGWkdqDzIRXbUTXRO3 yLXXMBVTIIQdCJVUlFE99G TaSYUZyLWCQcT86JHXNRPD xwYXJccGFyXHBhciBCLiBM WB3BASUTSFcZKPZCT1yQOg CQP7TBONZFPgYGS4WWG09T LQqOFUYKEF4YW4l7BALlbd AgICAtIElORklMVFJBVElO WsOITLBMNN1ORqXJUFpEBB JFEfMIOn7DXNAxV2FVRITO OQ0WOgMkJALnbf05SLS6Yr Tcl3M0SQD9GSQpFXVxg4fm ZGVmbGFuZzEwMzNcZnRuYm jfiFOcVGImQjRld5eqb833 yROat6ywCBTsOiX9oZUbZI UesPCuA861UPQeWKmwb3sg n4EvVVLfzIJyn7P1JSITsk liaCt1lMrjH88uo6A8Pspp Y6laLTOwSGBzS3KzQL2eVW IeKjo1FCF4ODS2CUHaGAEl K3UrZD2rLEBpcBKtBXq4u3 odrSleCCZyAEU8l8czENqj iqJmYB6fyq2waSf8d2dueu QwQKFoQLVigDRMIZWpL5Gh mCnhUa8cpGq2cXbfAkxjCJ P6Uqx0VJ8wfs93jab8tSbo ZPXkvnxxWyD1VKzeQZCutr xoRDv8QMaeYBBrzOC7OJVo oXTaL9EyURPbFR7ungl7LK C4JDrjDNFvKzI8TACnpCOh ITEdxYqfNOsyp025XUE6Hr YlGH6fH2Qqf8Q4wO6siJCx LJOvzUWgQpDcJARizm0waB JcVWzwg2SuKWP1pcV4fOLn oHFtLEBsSbW6HFalHP0fpl 95AYMfLBO4so2jgOHdrMcj llEquGZsKFvdY5EePPUxr7 59WYCuH0NgTICko6V9yrCp JeSyGGLrhQB1rpV9CXKiQX 9iaqpsy1zaCLcuBWewOUEf ctG1smZ8UFSchAEwY1DjgP 7yRUQlUA2caajjf5taFAA8 ZEzsHHRyPGZ9EaFnPDYsk7 Seqzg2OlEmr1DamXLmFJum T36iq817WLOaqrKsF1adoT FpblxwbGFpblxmMFxmczI0 XHFsXGxhbmcxMDMzXGhpY2 dkOlWuNSAvwOjrONqsu1Va XGYxXGZzMjJcdGFiXHRhYl h7AZCatXBfPEQxAjEqT3ni byfsAhZDYYWcd6ebT8wgtA ETnXUgE4EaGGixodZtTVxd YEsxELF9GGP8Rm34FaM5FM Bhcn19 COMMENT (test code = u7grvXNvMXCnwXWqDyXmDO 3355) PrRUCtc6hyXVBttHEuLqQe MzNcZnRuYmpcdWMxXGRlZm Zmb0ahm369ePIrs2isPZTc PoU4lXIeXWBoiQHtR114HZ AoCOqii8gxe0IfQYWtiREv m4U4VOVGjciwiHu3pScgF7 0bn3H5QkvnC8uvAJEpLJKy K0MjVN0mYVTyDlk1NJC1GW X9HHWrRACuU5MwXT4kGAEg mHXiUMq4m7mmfZcvBYAwQU N3n1rnYYwevmMrQB7qoh7g vKb1r5rftqBwEFZiFENppB VQQKQsW3GuvCwxUq5pmTu2 kNztVsnaNSN9Cyl7QH4mai 32qvl2vJrnRYFdbphtLhB3 JYowVESspakqHUo3WOelLX JnbDcyMFxtYXJncjcyMFxt YXJndDcyMFxtYXJnYjcyMF reGAXzOMV5ZUezn033MHC7 VYcnh5zvv3snkOYvHwu1OS RdCuCtBwquHDkuc4Mad5gv PKMtrk3aNGZ2bMGshTjoo6 B2cXQkRTNakWRupsEtXFDe QfR1EMdiKR5pfa04JQRdNI K7hm8hrIXeoTlirtUpkUYb EJouU5CyIGIvv835FQPbM2 OkEDEzm3V4szOeNlCsFHFg vTX3gpX1PXGoHNt1iDDmap K0zqKjdIFzH5nckA05UmCv kSUnV8GtmI57TnMijCEgE7 BywR18XkHebCFkI9UqdZ75 QdPyxULgRBFtdUJjRf1kkV LwtVRla9FjoTLyRZeqV26g o076MMQmjcFhZ3jcjCUofy ickOFchjaiSPbudhF9ZAZq XHBsYWluXGYxXGZzMjBcbG FuZzEwMzNcaGljaFxmMVxk KwJjMWYlPQpvA7dxJjMwGx MyMCBBLiBUaGUgZnJvemVu JKVoQ6Pkn96lu7hni7Gyff FyZSBjbHVzdGVycyBvZiBt SOwfL88zrkEkW1MplHEpwV 2lNWFlLVJyR6EaqY1zGJ1h ZL0yE5Yqh2avHFNfLLEtex KaMJ0gCGLun48tRY0zfXsh bmFudCBjZWxscyBhcmUgbm 70HWDzsADvt6ZjsRMsCFXh CAV8CAUngQzgy59yaFhfAW Ovzb2yegVsuXPeMFA3pX5p ZOPivuWzyKR5pJAcUNGgOY GbZ6Mqfve1LDVyq20bLIMi pqjxNXLjRo3sZBniWA4ad2 UaSLY8nAIyA8NxsUJxPIAq MZZhd1v3vCAdAQZqesTTAT HiMC69qYIySCvrNVPoEEJo UKgjxLc6ENVzc2YtFJQHNX FvOJRrTXRpr9NcoC0lm8k9 SHImNCP0rAXlxtXnqFh8je MrNmHtMX5keK4awXhakF6t aGVtaWNhbCBzdHVkaWVzIG UqBIMex77fzFW5WS13SIzo eVgziV1pxGi6utK2xV2eDP WyxHGvl1EvXVVnkGniP5Jh R5qrr19iKuRVDO7spYolRT 3jjpxzmoFfVRTvXJKweF3y ALRxfyHxTNXfAeQnL5Tkh0 6lD0NvuVJpk9CnjG3olHCp DtEIHUEngpFje4zcoGEwp5 jny9awvFKcfE== CPT Code(s) (test code l3lsrWIhGKWwuSMaFpXoYZ = 3357) JgQVIkj3boDTKhgBQlMoEr MzNcZnRuYmpcdWMxXGRlZm Gxv3hdu479uUTxr0ahOHBa KjL4rMOjRWJrdACgE529a3 qso1kcemPzdAU9ZIYsFYB5 KPsytgCheuG3QYeinINwTi I8MRvseeKsYBxosxAobrTg Fni1ZLWvD912XAT0xBgmo6 ngSRJ8WVFfUVXyWcWiVp4r jFOkU044FLBmRMXQBLZjcD g0QCKlqlOmbvEwwJOSp472 X987b3nrHOJxpyPdhGxWms dkp4kfM195ZEVmtGNvkkHh KwTtDRYflLIorAV8NNIaHA 0octpsDhZtUW2ylmioFrIu KW0fhps9UmPlMP5lasmjXx CqRDoiEKTlvhcvKAVxr2Sf hsykGP8oI8Lym6L4nY1gsZ TvAAPwaZXaLjRqPLUkjy8v qVJpFUxsg5WrKEB2svZ6sX FypHBgRZHxNC99Qyyke5If CkvgFXZ8WLPdxvHvm5Fan4 ukDsZoarCqP0vnE7NxRHAn TTZiLGQyEiZohoQux9Sil8 ZzwOZbpTu2a0mjINNrWOBr dMnwo4zbKUY4DKExJ3H2dE Gta6pnZYiwFZPkjDH6womf IPdmFXLbkwY9flfqKHsiOV TagVW9yjnoQTyfUGHkVaI6 fvfdYWsaBXGtPQW9NTakv9 09AFQ2NBgdXljhTAhsOZQj bmNvbnRccGduZGVjXHBsYW luXHBsYWluXGYwXGZzMjRc xPyicXuwcE7rQzFgIrHmCU zcHQ1bUDNxV6qwpJHnDIOm SRHjV2onSyCcxO9sdLguDD xihmEwMBs8FvPzoYFeIWz9 VeQ0lQXoPEk6XiOsnBPcGX v2AoXxbRLxnPWkhR== CLINICAL HISTORY (test j2eobXOnYSIdjAGyTqDoMD code = 3356) ThWYVxr1njZOUunPLpYdFm MzNcZnRuYmpcdWMxXGRlZm Mnm3csp448kZFji7kiPSWr MkU4gYThZWPivWEtM857UH WpRHahu6nmo0KkUWMuxBOz g1X0GLFIyqwatZc5vLdgR7 1gw5K5CcsmA0gvKHXpSGOh U4LlPF8aCLUvTju7XTY7HJ S3NWZbIRBbH2MtQC7hDRWh fBAyYRy2g9xlnLppDMNhFA B0m9sxRLtivxZoRH5lng3c cYj5a8kbpiRuAJFsASQalJ FXJQNwZ0EgbHweEj2saXx0 oKfsHegiQSZ9Pfm7OF2mzr 99qvq5zDkqBUMwqnatRrV8 UCvtJKQqonpgXYj0FZyeLN JnbDcyMFxtYXJncjcyMFxt YXJndDcyMFxtYXJnYjcyMF krZITrAMZ5CVjpl241RFX7 NArhm5luo7lzmOAaEvv0JH UdNtCwRkelIRrlg8Jeu8ue PSJulv8oTPM8bONcyVjzd6 G8sRWkNOEuuDLewqOaEAVs MoS2WIrwGN0jjz35MHTkVW B5mg4avFRsaHjvdsUruKZf ARhpR7IdOPJji893VDMqI9 IkGWQcl5W1sdFdMiCfSEGg yJQ9xrO8RYHnLIz8hATmvl B4rbCgkXLxM2tqeC59WxGf zBPyS5JjrD08HdHmgARjU8 XqvF95SfNkpNJhR9BmsC21 IdAmxMJdNHEbrUIfZl2orC FupFZll2SfuBJsKYxpI42z c834ZSFdcwJcM8avpWLtis thlRYantcpIUmmchX2FSPj XHBsYWluXGYxXGZzMjBcbG FuZzEwMzNcaGljaFxmMVxk UsIjENSqLIulX6jeVqIqGz HlESLPTJHen1HzjtrmKoWd cnF7wD0mxCS0MSl2dsdrhD Evb1oqPJL5 SPECIMEN SOURCE (test o7baaUVjFTHbtUTiKlSvSA code = 3377) DgDKGni5ceDLIxvBUwVoHo MzNcZnRuYmpcdWMxXGRlZm Ewx2btc469sGUxj0ejHTMf XeD8cBXtBHSyvQYiF679TX RrWQrvt4fvg1FjKMRszDOq e6Z4QLCGenwswLi2rImsA5 7uo6C0XpnrQ0ueGSXzZIMb I7VjJG3sRYGuItw2DOO3GC F4PEMvOFVcM8DxML9wPFJo gWUuHMm7d5zctAvbBFHqQO H4t6glQIjrkhFvLE6hfc2k bQh0h3pjuyVyFTMjNKIcsE ERRDKfU6ZudCfqVx4hiUo8 jBaoIjqvVIP6Yvq6TO9fei 21wyx7wNtgWLLjwtglYmK3 SVoeALSnlwpsVMv5RLkqXN JnbDcyMFxtYXJncjcyMFxt YXJndDcyMFxtYXJnYjcyMF aiNEFwNUF8EVxnw606RCC8 WQdzf5jcj5rkcIFlAfs0NN DfOtRnNaauGUgct2Inp0iq NTOvny6uQVG5sSZrzZvgz6 R6sPGiQRRkfWNkrrTyOZPy MwY3CBlhEL7nzv74MNWqJL M1xp1wcFOaaOyfhzGnhJYs SAkuF4AjRJYos859WSXwI2 WkWPJge5S3bdDsSaRsPZPk lKX9bsC7ZCSeEDo6aGBupn E6jiAlyKDsR0vlmD71ZvVj cVCcW9YtmX73ArRriNDpM8 YlbJ54HzBhpIJlN8VusC68 XxVhqTOtMMRyjNZaMo1dwI FmvIZur0VhmPBuKUcjS29v r019ENInvdMyO1xtmWEjga qvxOVldtziKBdrheP2FSGj XHBsYWluXGYxXGZzMjBcbG FuZzEwMzNcaGljaFxmMVxk GgGnPSBpCQotZ2waUaUiSf HjJZRLMdKZeWwyaDVuf0iy mqJwi5GgGGOyJO0xlb4mR9 xiEBnrdVaqz0LgJKjhSVQg Tv9xYLSeCxuaSvjjnXCroZ 58XALwwD4vSGM5dzXhj7Cw n05gvCxpgWKrwP6dn8lmuH FyfQ== GROSS DESCRIPTION (test o2murKSpDIPsaYOdJpNsII code = 3366) XwSDXwd1rtSUBcxNOpXmBr MzNcZnRuYmpcdWMxXGRlZm Zlm9uqr316sAHan5emRGEf AgQ0zYQwCYRhvEZkF366GC PlTLmzd3hkc2IeCEAxlDUi i5Y4YJDZuedymTp6hLtlJ8 1yn1V2RajqU8seIJUbHBAo L3PbGX6pRYAqPnv6RRO5PS Z6NLPkIPWpX6AtGL4kRRZx rPWtCMq8l1kjrSwlGCIqSY D4d9xmBNgwguVmTF8gtc9u fCf4f9zpvhSjZRBiRLOsjO RUSNWlM1TlwGhjQt8krZp7 dXvvYkyaRCB1Lfv5CU6bli 52vja4bOftEREknrfdVjX8 PHioZLCspnrnOTt2ZEgkWG JnbDcyMFxtYXJncjcyMFxt YXJndDcyMFxtYXJnYjcyMF gzSZNoPRL1ZRngl705WFI3 OKhou9jdl2titIRjJay5MK JnJiQdEnfbXSevw5Osw3tn JGLugr1kICZ9xQYptFqqq6 N3rSZrNPFbuIEcuyYaAKQm YyX0PFgqDG6qgm12WNXnBU J8fr1ayXFwbLaoanTqsIPb SLaxQ6BoNOCaa623VPYxM7 JgWQPbb5Y7pxNqIuDhOCZe pAW7xuZ8VOTdFWf3dPIyjv Q0ovBlsPCdC1ldfC89QgFs lRAhP3WmvL80UaXvzVOeH2 NtfX31PrUlwCXzX8MjjG00 CzMspNZeEKEgjHZxCn5aiW KztLVxd4MsbUQoZKfsB71p q798AFQtltEmX4rqdTJxcv bymFUmuknoCQbcauQ5RDGc XHBsYWluXGYxXGZzMjBcbG FuZzEwMzNcaGljaFxmMVxk SuXjHYAxRWzpD4vhUhDlNc WnGEIBuLWloQ0tfxNJYWyj YJwtHxDwPNErMpt2xiyyOA JpT5p7JMnqq5TnGOqxHgRt LiBSZWNlaXZlZCBmcmVzaC Nlx4TohW22xdSjbCTeWDHr eiFjB90xj2UqlIL3pL7fCS AySNA2uVYfHUT7iT61LQGb MQquCA63jsCaUfH0OD6jFz Rau28bdBehm3EeFA8gBOF2 nhtzKsPxGnWtK41jJYUhqN 4gVGhlIHNwZWNpbWVuIGlz CCPaxHhoSAz7HFA3Fj1roK LoMOHpi9DmBxJeapMhKVpb OFKqg8IgxYTjYHBpOnNTGa 7awEgqACIkvJWfVBf0tiRp clxxbFxwbGFpblxmMFxmcz Q3LXEtIPkxFWNiGUKpOnAt bGFuZzEwMzNcaGljaFxmMV fjPhCfPVWgGJelN9rcTcJd JbDgIVTVlZWvpL3lthIUGu QKcYNhd5BjN0cyRK0vpMZn omMtXCg8SKTkdC2oNJQed0 FeESjvdv5gtTniEGXoD48w dGFpbmVyIGFuZCBsYWJlbG VkIHdpdGggdGhlIHBhdGll yaDfqvNlmxPypi6veYyiek BhbmQgbGFiZWxlZCAiTHVu OkqoAfwobQJqrQ66GJFkmY 5sTYY4koNkb7Vak66rrPzi mZQkrS3rb9kmVDUbPQWpf7 8ixHM9iaOpTaKth5CyiYNm qyC1nIo2HMJrSAsxRYQvOP 2qLYVzBVWtZUceWN88ipit j71uMLwgfWIuFVUuM7cySF YlKrPuV69kCcPhA16nzpN0 NNChnDKvTHKrfgHrM5RiEI AuMiBjbSBmcmFnbWVudHM7 XDDuG0i3VCtcgXXiBDZzY9 xxGWRiZkHlN80eSrGhE41n mmDrJBQhfXLroAQ4EYBsWH 63zPTkcAmePqFkgD6cFTVh OVKuRYLdBs3jMF0mrFKdjX == INTRAOPERATIVE z8jnbZGoIAKwoGTnRvHtSI CONSULTATION (test code YqIHMek5stJIHmqBMqQpEf = 3369) MzNcZnRuYmpcdWMxXGRlZm Sbw7lwa564jLXfg9gzMXPj DiH9qGSgDIQauSFgF871OW VoTQaza8dgx6EtEKIciSWc x9B0MEXUqffzmRb6pAzuD4 9cc6W2MkilP1mkLMOwBTZu U3TzED1oGJGlMtz4RTT6EH A3CMLdIHMnA1AwXA3pQJJb uPBxILf3v5vkaIvmZHPcGV L0t5yxTMaufnAjOY0cdm8l aQc7v3adwdUxXVQwDQNbeW CAGINeK1LeeIcvZt3jlSd7 sEhcYudeALF2Auv1LL6cow 30wdh2kLebHYZvmeajUaY1 HAjzVQNqezfiLCn0WSzsNF JnbDcyMFxtYXJncjcyMFxt YXJndDcyMFxtYXJnYjcyMF rbSNNqSNZ2NSodc806MKF9 JAwsb0hcb3jugBNqBbt0AH QzWvNuKertCLexp4Lze6it BAAjfl4fUHH8vVXtaXssv4 F1jXCiSWRblHJfepNqTKUe OmU2IKvuFO0avt90KHRjVE O7zm3bwBNpsIezndDuyMOt DZcfC9XxNYTbt623XOEpL5 DlQGRir3H3kvXcTeWjPSOp uXI0feY7SDKyABh8aUYqfz D5qhBwsVHsR6zldV82GbFt rXOkR7HobE39GtXmaEYfL9 ZkjO92WpYevHPaR4HaeP18 WqJlkCGaMJCbtOMhVj5mkO AsrCXej5GrnBNkAElxK12n k057WHMtcrIfU5bnpUSlxo kduNIunmivEHshvbY7LWKd XHBsYWluXGYxXGZzMjBcbG FuZzEwMzNcaGljaFxmMVxk PoMtNUDxAAgjN0giVeSoDi MyMCBBMUZTIDogUklHSFQg KH4UDTDpTZ6QCJbuIH6BW6 FIM50YNZgZQMFXRTKMSDLz LHDSU4BWJRoshRXaINNgTS RPY4YOIXqUTGNCG2ZfCPXS PIbKSO7LLNPMGpDBWPVKN2 jMDw8DDuIqU4KqNO6GKFIH OQFYTK8LVCAABSGLYVLST5 NJUyBccGFyXHBhclxsdHJw ZFTjvVsprFugxM9fMrJqRd MyNFxwbGFpblxmMVxmczIw JPcbozqoAFIxXQwlJ9ufBq GgOISueNdgGUvmz3CnXXWw TOZoCpSdPxQhd3B9NSYaSq kgRHIuIEhlbGVrYXIsIHBh zBzhtA4jjJY4SQ0eVVn6HQ BhlDH0RlLrLCJtwS1gcLXo fQ== MICROSCOPIC DESCRIPTION h6fekMVpOBJigIBkAiJdYL (test code = 3371) FgIFLhc4moLYVprUAkVuMy MzNcZnRuYmpcdWMxXGRlZm Enj5rev178rJUmn1ldVPPq VeO4iVAeTQIdxHMdM518LJ CeMWxrg4mtd7FrSIAmaLVr x5K1CEEEugvqqSx7oHgtV6 3jn9T3SlchE3ckIERdIYIi Y9NdUC9uOWLpAam1ANZ3UN G4EAQhRLTlD9HsPJ4zYSCr nCOmRNf6t2mncTsbZLIqND T6x0ggOGehqyWeDY1xwu4z nTt4k5aukvYaYOTjMPXojK RWIDJlX3RyeMflUv3myBo2 rIxgNzfmHIH5Zad1LE1pmn 04wpt8ePcyHHAiimmfScJ7 WSfhLJUikwabAMq9XMrvRR JnbDcyMFxtYXJncjcyMFxt YXJndDcyMFxtYXJnYjcyMF zgNJClZSI7LMclf411KGR2 XFafg3imd6drjJAuBis1TS EpNzCqHciuWEjir5Loa5mj HWPjdi1cRIA4uIUrwNgkt2 C3rNWlSNMwbTQabcHjUWBw BxP2SLyqXF4jqk82SDNuIK X6cw0irFPfeDnlnpDvsFSm WSyvK3HqIPMly886PTUfO6 QvBYEcr8X6yfFnByKoGAVe wIL4pbY1WIToWMp7sTIqmq E8ofMpfOGoV1qchK08DkHx pFWgR9OdaJ09XgHzbTMjJ5 PtkG69AcEbqTBkC5XsdO88 YmCrvHGvJVOjiOEuHt6ylA JksBOfs2KjsLVyHSasS21i c206APQjcfTyS1fzyVWxdi iifPFfbnjeKOuvllY4KXXb XHBsYWluXGYxXGZzMjBcbG FuZzEwMzNcaGljaFxmMVxk PvEfAHDgDHyqA4pzMuUhWr LkTHGYMHY0WEZtraBsrk7v ZFxwYXJ9 SPECIAL STUDIES (test u9zndLZnJMYdeZIhKtIaDK code = 337) BkZICqc1eyEACimEUeDnKr MzNcZnRuYmpcdWMxXGRlZm Hvh5okq205jCOtw8okYJXg CiR7dQYhYRRvmRViX553EN UtRFkqf2hei3KdVPZknHFh a6U9JUDANWxiJaSqW264OH WkLEhgk5yno5WxIYOfbCJn h4S1SLYNsdhpnEx9hCoxH0 0jm4O8MlmkB3meHUHmVBGb L7GsJK0qWKLsFug5USB0MB L9DJCoJWQaF7SyXR7aYDQl lWJdOKq0r0wtgAfvQEOfUK Z8v6hfXGzpkyA6BA5xxz4u jXz9e7uwuxWzAJJrTXCazG LDRCAeT0XeqZtjUy9hcYh7 q6znBanzdlS7qQBwMgHtCw MyMFxsaTBccmkwIENvUGF0 cZWOYRt9F818t8rrWMRegx BrfMpZobsxi6nrM236PSWg cGVydzEyMjQwXHBhcGVyaD K9FEQbZG6ndstyGbFyES9u bshbViLuRE4vxji4FfVvYN 1hcmdiNzIwXGhlYWRlcnkw BCBgo1PqywmpSU0vL6Cct0 T6jY4vkAVbRMWiePAjWxMn KCXljw8fxQAoWRmmRCC1KE RmshDgj5Gas3mkLrIjjaNg R7caM0EqOPPyZOQuKOUtNd UkytSef2Qhm3PmcGRugSg1 e3mhXRLbOVNhgQxbs6fgWV H5GBLvH8V5kWRlu1boZOuu CJQmgWA9ezdrIKbmSLKzmk W3tryoRKofFSBngDV4hyvn TVhrXJTiLmR9lbusVXfyHT OiRUX4FAeab161YFI9UByp YmtwYWdlXHBnbmNvbnRccG duZGVjXHBsYWluXHBsYWlu XGYwXGZzMjRccWxccGxhaW 2kSrAgBkXhJwqzZO3pTRVz L8fjbKQjXHHzNCQnV7ncMf WjyC4hsAobUHkyHwYzVpNc QuSYhJQepV38LOUhcsI4VS Vuk54sn1ZcvUonyiRsMHJz MHjoJ9j3DDLgUDOtWYE7q3 Vku8ZawE9loF4qqHtizO5j eGCeqUI3rkdng3Ljl2AvW1 lhbCBzdGFpbnMuXHBsYWlu XGYxXGZzMjJcbGFuZzEwMz NcaGljaFxmMVxkYmNoXGYx VBwcA1dxKtXoN7XhKCWzXd EfuKFjY3wxkNTrSYRrBSdx XGYxXGZzMjJcbGFuZzEwMz NcaGljaFxmMVxkYmNoXGYx DNvkT7tjPyFpM3PcWNLeJe VzFFZQNYU4RIT0ML6abaDq Do4qtYypOCTvQ13siOMzhQ BTbGlkZXMgRXhhbWluZWQ6 CDOGek0kt9WsCRLrcg92xm Oyv8KmsFx6LZSvt648xn7s tfS6ARJpEXJ6QAo1ALUtER LifR7zAlN2zDHxNCRpXHS3 XEC2YVDsk0G6JT1xIUKtOR IrSXShgwGpa9efd1qgATXe ZEK7wcMazL8zY4QmGYXun6 YgdGhlIHBhdGllbnRzIHNh dXBaEGRhvN76LTGqgTXzcI GuMZVfKOX2NQtabS5tFoSU ncNsoi1hzYGqt4QhqSr2EW QgoyOuphFcYAEbmzDxT56i hNNnsGAxr2iuciCumuMrzL UljZTaUHPqRMZ0BGu8FSWj ZFxwbGFpblxmMVxmczIyXG stcicwRJWfKQmwB6niUwUu NGZdzGrhLHecb9GjBJNyXJ AqJrtxjuQrHEc5ulSbFAEk clxwbGFpblxmMVxmczIyXG jffjwnPCMbMBjrX7xlOdRo SEQpbXyuSFfvx9ArVODvSR OjEnmixsUkNEChqZfurD0p KlTqHzAlCqzxXE1sSFUnQ1 atkRKtWGQyPALdX4qjNuXz dN4zvMqdAGzvNeHvXiIlPn ghbLKjyLuyTSKzcYfraZ4y UbBuTrBmIufwCL1zQXLfR3 ezoWOcTUEcLHRuG1fjHbMo qZ6jeIijYHleGkRyQkWjYn BNcL23qw7mgQL9s9TfAF9n s0FflDX4MROlqcbhOCwdjF MbmIqrApQ0YWSgfAGzDf4f mWPeAGK1HTNsvMwknjBIcI 4gTHVrZVxwbGFpblxmMVxm czIyXGxhbmcxMDMzXGhpY2 isVsFgQAMuwIqrDMtnx1Fn IFUkGLAtSvliyyBmPDF9Qu R3KIukOENrkRadgH1tKjSx SvNfDvjqGO1yZBKbJ8rrnS RsYSXfBOYcJ3wePcEziH8a aFxmMVxjZjJcZnMyMiBzIE 0gSXbgYPncS4IssYFgRNFY HWOwz3ddD3uoRZQgi0DcqB 4vvEU0pDBaXMMxuBH6NWUn NDG3DTewvZBoAIDtSEZnuU RfkQXeUh5mlCDwT4NyU7or ehKqiOVxtOU1cCVcIRlynq RiKXB6DJVzzU6jEG7yZMCm bUHfTA4cuUYjQFAuXPEsAJ HmQBVdo3InAQCbkc03KWPi DpqlkAbuZYZmOl0kCq9sKW YfewFqOWV4IcEHQI7zcfkc bXYecZjumx9xCYkeMOHRJZ LlNREwEVO6YIBteJ0iQVW6 kRX9MEV8X0icN9sgESMtkh HfHR6lZDNusKLjweVtKYlk UR7igXVfJOGwp8ZncjduDG EcWTD4DIU9UZcfYJXgUVZl Lp6hAIJuuK5qF9KvBRV8mo Iox2CwKqDOjINgfN33bZWb vu51DGSySCZfJ8BgCYCwUE ImARdetlAhsJbuVOGum98c wGXikiCpl0JequVzTKBrQ1 cqXKXajJIrtLDdi6NrzB9y oALwkcDrEVZ8gNPiLSPkvO 6wMBWqhYixDXIdaF5dP2Mj IHmzXw4aMHExroizNA4nyx 01FN1xhuYjYP8gkpBmPU28 wiTbSaGoOAt6BUrWSLdRBV x7YYVpqoAsoOKftTKgDPLr tD3xiCFoHy6siOHoiFpvDM UklUYuXCtphIczG5ybxlhc ZXdnkJWih9UpyX1ddOA7EX U8kX3jPcoevCYqgemsLwhl czIyXGxhbmcxMDMzXGhpY2 qxWaUbHEEupLjhUdxib8Aw XGYyXGZzMjJccGFyXHBhcm GspKoihP0iGkMwBnXbBQbt bDCogihaSmvwsqJ7XNJhhr 0= Gross assessment was [facility] performed at ([facility], = 2777) Department of Pathology, [address] [place] [id number], Technical component was [facility] performed at ([facility], = 2770) Department of Pathology, [address] [place] [phone], Professional component [facility] was performed at ([facility], code = 2779) Department of Pathology, [address] [place] [address], [facility] [id number] 16:58:00Surgical Pathology Report Case: [id number] Authorizing Provider: Luis Alberto Santiago MD Collected: 11/07/2019 03:42 PM Ordering Location: [place] [address] CCU Received: 11/07/2019 03:49 PM Pathologist: Lala Jimenez MD Specimens: A) - Lung, Right Lower Lobe, Right lower lobe endobronchial tissue B) -Lung, Right Lower Lobe, TBBX. Process in Cytology for Collodion Bag, Reflex Genetic Markers. THIS ADDENDUM IS ISSUEDTO REPORT THE RESULT OF EGFR MUTATION , ON BLOCK B1, AT [facility]: - NOT DETECTEDPlease refer to the scanned report for additional informationAddendum electronically signed by Lala Jimenez MD on 11/21/2019 at 4:58 PMThis addendum is issued to report the result of BRAF mutation on block B1. The test was done at [facility]: - BRAF Mutation: Not detectedPlease refer to [...] for additional informationThe test was done at [facility]endum electronically signed by Lala Jimenez MD on 11/19/2019 at 2:18 PMA. LUNG, RIGHT LOWER LOBE, ENDOBRONCHIAL BIOPSY: - POSITIVE FOR MALIGNANCY (SEE COMMENTB. LUNG, RIGHT LOWER LOBE, TRANSBRONCHIAL BIOPSY: - INFILTRATING SQUAMOUS CELL CARCINOMA (SEE COMMENT) Signing Pathologist Direct Phone Line: [phone] signed by Lala Jimenez MD on 11/09/2019 at 3:09 PMA. The frozen section shows rare clusters of malignant cells in a background of necrosis and inflammation. Malignant cells are not represented adequately on the permanent section for further characterization.B. The neoplastic cells are positive for T24-hilmbzqr and negative for TTF-1. 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 Genetic markers are being done at [facility]. Report will [id number], [id number], [id number], [id number] pneumonia; lung massA. Right lower lobe endobronchial [...] AND NECROSIS Reported by Dr. Jimenez, pathologist [id number] at 4:02 p.m.A-B: PerformedThe interpretation of this case included the use of immunohistochemistry or special stains.TTF-1; c48-kyhtaggbSamimek Slides Examined: In-house known positive controls were evaluated along with the test tissue. These control slides run alongside of the patients sample show appropri ate staining. Internal positive and negative controls when available are evaluated Immunohistochemistry technical testing was performed at [facility], Pathology Laboratory where it was developed and [...] qualified to perform high complexity clinical laboratory testing.[facility], Department of Pathology, [address] [place] [address], [facility], [facility] of [facility]ology, [address] [place] [address], [phone] Global Medical Center, Department of Pathology, [address] [place] [address], AQV, CHEST, 1 VIEW, NON [id number] 09:02:00Reason for exam:->RLL Carcinoma, frequent pleural effusion.Should [...] MDReport Verified Date/Time: 11/21/2019 09:02:25 Reading Location: [facility] Radiology Reading Room CBC W/PLT COUNT & AUTO [id number] 05:58:00 Test Item Value Reference Range Interpretation [...] 0-1 PERCENT (BEAKER) (test code = 2801) [id number] 05:45:00 Test Item Value Reference Range Interpretation Comments PHOSPHORUS (BEAKER) (test code = 3.6 mg/dL 2.3-4.7 604) Recycling Manager ID - PISHER [id number] 05:45:00 Test Item Value Reference Range Interpretation Comments MAGNESIUM (BEAKER) (test code = 2.1 mg/dL 1.6-2.6 627) Recycling Manager ID - PIAYA LBASIC METABOLIC [id number] 05:45:00 Test Item Value Reference Range Interpretation [...] S NOT APPLICABLE FOR DIALYSIS PATIEN TS. Recycling Manager ID - PIAYA [id number] 13:38:00 Test Item Value Reference Range Interpretation Comments Case Report (test code Medical Cytology = 104) Report Case: [id number] Authorizing Provider: Yoly Qiu NP Collected: 11/16/2019 05:02 PM Ordering Location: [place] [address] ccu Received: 11/19/2019 11:07 AM Pathologist: Tate Barksdale MD Specimen: Pleural, Right DIAGNOSIS (test code = f3hpsSPtVYXdo2icKIInyY 3220) FuZzEwMzNcZnRuYmpcdWMx RAlejrZkMWlan4RyR9DlDa AwMFxhbnNpXGRlZmxhbmcx XCZzUOE8pjWkBWOoIJrgXN JzLIxqYm1kmGRxjDrjDaVb PFFpw4lxnvJHaevnvSf2l2 iiULLqUwX1vVUgVRexH6lk hkUjsWBrNJUeGPb2tK57DW VjdQ0pdPRoECkbkeRfKiQ6 HGakXWMqZhT0CRNtoBJmYF JhV4niZVPnQOtiSSBfDZzy qQJtFTP7pBtxq4R7yKPvxL RgeWbcPxUhQnQdNQMFs3Ez FPv6yApqA2DkHVTtXiY2pR QgUGFyYWdyYXBoIEZvbnQ7 cV12VVrjqmN9sNVfg4Dvn6 5as264lZ0mmHXyOPL1LWNl DVXfsKRuFJWoVUY5RQHtrR TxS9n2AeTxcUMpB6H2TgZu tYGnI3J2DuHccVMkD1O4Hb DlcQKwGUZeyHKxVq6lsNLz iLVtsl9lhl68DHT0g4NxoW ouHRO3VQY4TdUaQe7yrSRw EGDtIK8lAqGwoHYkRBWrdi 74lPfyQQiktuXccY5mMwJe TAColXCcZAMmQO3bsKMsMZ QzwZ0cfdjuCFQoTgYuanzu AVJcnWdzyqMdHn6eoAbrIV E3TMdwL5wuiF8jMdZ5VDvc B9ctoH9bKBz3AGexiLB2DJ RbxB2eEG2itmpzn9ivSzMo DW6ltxfnv4fdPmKnQI5znz d0i9zbUfJbEU0vgonwl9ua NzIwXGhlYWRlcnkwXGZvb3 KvyixrWVEpb3OuW0RttAtw S48gcOssH47cLNEfxUwqjV 2pjYbzcE3pBnMmIeNxDUxx bFxwbGFpblxmMVxmczIwXG tjbgmiNTQzZPltO9dqGhOf UADzjZysJWnbv6OlEQIbQH ZzMjAgUExFVVJBTCwgUklH SFQsIEZMVUlEIChDWVRPU1 JWJsQsKJ7VKACFTWinFhpN B3arWqgdbV3vKDQvXB6gHi UTPMQOMzQlEy3NUU1FGFgQ FfOYI3bswNIaNSXkDA1fLr GoH0GdpwRpdAUxy2YdTKxd WXduY7CdlFSreCEwl5MfrH bcVIT9v9xxeNToRJFreIAj ODAwMFxhbnNpXGRlZmxhbm nlDZCnBLC7boZhVBBiIFak USMqIFwpWw4gwMOtlWclOl EiXXHia2vaidAAuvnppWn4 m7soXDIqZbP6nIZpCAlkQ3 rsgaFuxLVpEIRrZAo9dM83 LAFgrI5evDIkVMlrhwZfCj M7ZQpsODHsKqT9QCVzuRAk HNEcE6jqQYTsWNwcKYMcHU lhsCWcAGG0sXeoa7D3sHZo aGVldHtcZjBcZnMyMiBOb3 DzLGe1bHqyH5SbQHMtOcO3 bHQgUGFyYWdyYXBoIEZvbn U7uA30JBwsfhR6xSQcq3Cs m03hz853lE4itFRjVCP8LY JaIYWobAEdFDAdGCG5STRq dLMkV6ndNNQoCL3avpaaEW rbURqxOOKykAY7EJRueWMb D6VmGSRgTOthBAJcich8Cr OwSx4voMUxnKheBLoxz7gg b7ohvKToZms9RCZiPbRtFz paSBgek5Blc9uaXSCgdq3w HXO7hRGkfKxmu2U7bABfPD BroEBmMXNyZI6pnVBmVTBp zH8efkljWHBjTxNvlgabLQ FbiZeeltBqRm4ieCnlCEO1 IWvwL6iatW4zInB8GUxoN3 jgcW8yBPl0SMdnKYXqsGI7 ftR9VWGxvMVuV2HtxP6kHT AaJC8uxuk0o1glORX9RQgj YRDoZtL8jsA3POXieEMqUT ZthGywCSvkp257THS1XrQv YBIos8RqL4AbgNtuQ80yzF loM32xYYMbiDvstD9cxSnv aB1kCcTuTjKeOLuahVryEQ 8sUAXlA8wrwYLvSHXnGCSz B4ulIoAakG6uoJilYUtslg ZuTJGqJoc1ALHotNVkRLOh Zsp5NDRtAMBqA60dqkkyDO N4hD7hx6oxb4LlADchQYR7 FGDds75fDUnlolQ7EHfcFu 6pYYQjWgg3ZrqoGWF9mM== CPT Code(s) (test code t0ixqRVaKAIddAIuEhMiCD = 3357) BbTGMan8oaPDDhbVOeEmIc MzNcZnRuYmpcdWMxXGRlZm Coq1cqc143hAIti6bnRYFj PvV4oYPtYSLjfQUzN832j4 hzv0olypCvzZG5CQTgQEK4 GYcwpyQjsyS0PJgmeXAzUd J4PGfuhlAzXXmzicLfnyQn Vlh0LMDfZ636KYJ9dGflk9 szKQT0WONcQKRxSvOeUm8y bSFfR200HKIxIZNAHSUswG j3WZArjeLlvcGlpFIHr590 K449l9fzIAKjdzYurMbKqc klb8ulK348JIRyzBGvexMc XfJiPXPgvQHsgRX1ROTrNX 0dzzjiEaFrEF7sxdrpCcXr JG0kzuj4EuPhIM8hplqlZq MnWMrjUFYkyknkVJXzk0Cy dzfzIX5lR0Sym0S3wW2lyO EfXLUzlHRwRsWbDSPrel9r lGYrJNiwe9PgYQZ6ywC6oE YeoRSpBUFcBV76Equff8Tq HnixNAF2ISTdbtCfg6Aen0 gpBsRaqwOiL6ldN3FgPBRz DCWwJUTxExLgeoLsv8Mtv3 MhcUIutIe3e8ddHDMsAZPm hNnie8thFDT4EWCgD7X4iK Lep8seYXbgYXGgbRY0lulv NPuuBULnfdY4qkpzVMbzOS SjgWS7aweqTCoxHLXyQpJ1 tjbyNRcoLYSzARQ6DXwly1 53NML9SGloHxobMBomDJGq bmNvbnRccGduZGVjXHBsYW luXHBsYWluXGYwXGZzMjRc kUheeJttpC9gNyTzXyCuEE psGK6xTIQrL9oarHMlHCWt PCDvO1bvTaRhcO4qoVkvSK jvctGlOTs0OLG6TWM6VEEr NVxwYXJ9 CLINICAL DATA (test e3kdgAOsALIjlHPkIgHhSV code = 335) SaGWNbv9lmYIKymIQqQxSr MzNcZnRuYmpcdWMxXGRlZm Xad5yfw449qKNma2xeCQXc EhB3jWXyXSRfdZIcJ126VI ZiHMjli6ezp4AdEGObgJQq z7S4SVIQrpatqTm9kJqgB1 2wl1F8YkwdA3pzJUJbTTVc H6CnJB2kRMWwCli3LIA1SP V9ESSoMOCgM0MlLS2bKYGk yQYmARb7q0blqTgzWXZlQT Q7t9dfKYauipJuVE8cec2e aBv5h8bmvqTvYQGyIFRluM LZVAYzC3FgdDwsYc4xxHe5 gFrlXdwiVBJ9Vfg1XA0ppv 51lsi8qFcoKNXdqqltEcL7 TTuqEZUpjaoeTPp5JZtaOG JnbDcyMFxtYXJncjcyMFxt YXJndDcyMFxtYXJnYjcyMF obOEBsREK3CEdfy404OUK8 VLmmn5esn7eumELvNzh2NR PgWgBgFcefWTbnq0Cpd1wl YGWxkj2xVBW5jZPlwRoqg5 A3dEWnPMIfuSGshhMtCWLv SmU6JKtrXI7gwy45LVHbDM C2pd3ukKFheAngfsPgbEWi VYqoI0UnIALzi779JRYrH5 OjXKJot9P7vhTqQhGnLGNp wMM5ypA7KOKoGEs2jWQfwm L7vvNvpFLjJ3gubC27IsRc gVVrZ9BkaH45XsArhAQoO2 VzmW66PqGxkXGqC3AauP98 QnUudFWuBMPjrSIjZi0wpQ BxgILnz1DkfEMeXAusB81c h733ADTkcuWhK7gfyZGvai kfpPPshojkVHzydeN9WHQo XHBsYWluXGYxXGZzMjBcbG FuZzEwMzNcaGljaFxmMVxk JuXuEBQeLGdqT0xlMgCyLv FhHOPWjSmoyPNpjZY2deTh PXNeOhYhwT7nKKFqmCU7g8 J4BS6sLTmtHkbwtQFpmJkx SqZecXDrrG15yqPzCUthKG TbpfByqg3bXKMmKwQ4bCMd ariphYIfaO31OQJrvC3wEX YuiT6dXNBoth6= SPECIMEN SOURCE (test y7znxWOiWAIrsHOvEeMyQO code = 3377) KeYHZzu8nkUKYymIWdYbYu MzNcZnRuYmpcdWMxXGRlZm Hcr2fjl460oBNxz5ugGWRt AvR6wTJmSNZkiQYiA146OI BjALykl1fik1FsMIZrjCKy b3V5OFXKdqmsgUl5sEquU5 6zc6U4TulvI8zyPRVrPDIo Z5WfUX3kNEJrJry8MWQ1SX U4WSJeTEPsE5HkXV1rPWXd dOMsXRq3j1wsqQlhFLVaFY G1s2goOTnqljOcBX3hya4q bXn0p2zbzaEhDGDjVROlcX IWEBEyR1LmgPpcLp1dtAg7 rLrgMhfgCCJ3Zzl0AH6nof 51igw0wOzfQRVzqxmmCbY9 PNvfDXQuwxfpGBo4UVlnUI JnbDcyMFxtYXJncjcyMFxt YXJndDcyMFxtYXJnYjcyMF keKNRdBVB1SInfu085JBZ2 GHhzh8qrt8gesNOhYtc5PZ RqOoUeAtroLKjma0Eua1hd FHVyut8rPFL9gBVssZwio6 S6wSGlHXOkcBYuefMhINWe KtX7OJrqWD0nca40ELMrNB A1qp9ajVCqcJtujrOzeAId ZCfhL9OmYFOvf953HVIvV6 EnUDJzb1D3czOyOjPpRLZq uOJ6dwC0BEUcVMv0rECotj J5tvDhzLOkU3mtiW44UkOr fGLbJ1AbbE01WhEcpWTiA9 ZxmM82JjPrfOOaA3NixS75 HuBacQWkQCWktBEhDk4lgR GclOOhl5MkbGTdDXfvY20f k722DDCryvCyS4mkoNUdrx vcpLNoepypQOlvypC4WNDc XHBsYWluXGYxXGZzMjBcbG FuZzEwMzNcaGljaFxmMVxk DwHbRSGyCBikN4mnKyCuFe MyMCBQTEVVUkFMLCBSSUdI VCBGTFVJRFxwYXJ9 GROSS DESCRIPTION (test r7roiSAfQAMqaHVtQtZaYG code = 3366) NtZNZbu8vzVCTlzUOgTyOa MzNcZnRuYmpcdWMxXGRlZm Vup6blj320oCMqk3pqMNVi PiQ0aNFcZNCveXGeB173TM UlZEdpq0dva8JnXRIlvZZh s0Y5TYVZxvosyGn7gFtbR8 5py6C6ZfpxN4jaKULtLGZs M8HrXD5fHMQgPmk3MFR3EW L7IKZyMYFvP7JyCY6rOXPy wEGhTYj9h6llpOyiWCTiLA L3w0ypKMkakvElSX9gfn3l nBb9r7eeqqAdIENfAARdtL AGPYWeJ3XfxMuhTz3qfPh9 cGjpNvqyHYT5Xsv7JN3tsq 68yot5dKewATTghkkqKjA2 KNewGGKghasiCSv2SEozDN JnbDcyMFxtYXJncjcyMFxt YXJndDcyMFxtYXJnYjcyMF lxPHJxJOQ8FKdau892OJQ6 FPpqr4oik5uupULoDhr7NR HfBrYtOopdAAzmk7Kcf2cj QELlxk9dPKN7zULehPegm4 L2yTTgXDUxsXWjaiNlBZJv DxX1SXyiBD4uei13GTCvBO J7fy9ghDGguHwkxvFpcDOz ZDrlJ6HsLIRam410ZAEhE5 RzJSKiy1H5acBqLeMeXEDa dAP1ahX2EDIyMDu5cLDvyq T1qeJwmBUnB5lptN05HoYo lNOlS3AcvV48MuArtUGhU3 KocV38CzEqsLZaP1JiwF88 AlQgfRYbVKXtlNZpFj3zjU OnwWMnq9AchANgGWybV91v y346DHXjjyFmO8cnlHLvjx aljEAcqpivCYpoysH4ZBZj XHBsYWluXGYxXGZzMjJcbG FuZzEwMzNcaGljaFxmMVxk VhZpTTFvTYgeG9ezYtMnBf MrSiFoPHFhQR6gvjVdgPUu ciBmbHVpZDsgNCBjeXRvc3 YhprVbZEYxwGovBxnuQ4wk kZXhUMNmxSkqF0RgLIerMR YxMjIwXHBhciBSZWNlaXZl ZDogMDYxNTIwXHBhcn0= STATEMENT OF ADEQUACY Satisfactory (test code = 2757) Gross assessment was [facility] performed at ([facility], = 8617) Department of Pathology, [address] [place] [address], Technical component was [facility] performed at ([facility], = 2774) Department of Pathology, [address] [place] [address], Professional component [facility] was performed at ([facility], code = 2770) Department of Pathology, [address] [place] [address], [facility]:38:00Medical Cytology Report Case: [id number] Aut horizing Provider: Yoly Qiu NP Collected: 11/16/2019 05:02 PM Ordering Location: [place] [address] ccu Received: 11/19/2019 11:07 AM Pathologist: Tate Barksdale MD Specimen: Pleural, Right PLEURAL, RIGHT, FLUID (CYTOSPINS AND CELL BLOCK): - NEGATIVE FOR MALIGNANCY - Reactive mesothelial cells present Signing Pathologist Direct Phone Line: [phone] signed by Tate Barksdale MD on 11/20/2019 at 1:38 [id number], [id number] pleural effusion, history of infiltrating squamous cell carcinoma of the right lower lobe lungPLEURAL, RIGHT [id number] mls bri fluid; 4 cytospins, cellblockCollected: [id number]: [id number] [facility], Department of Pathology, [address] [place] [address], [facility], [facility] of [facility]ology, [address] [place] [address], [facility], Department of Pathology, [address] [place] [address], AOSIQEAIV 2019-11-20 05:18:00 Test Item Value Reference Range Interpretation Comments MAGNESIUM (BEAKER) 2.2 mg/dL 1.6-2.6 Specimen slightly (test code = 627) hemolyzed Recycling Manager ID - RUFUS [id number] 05:18:00 Test Item Value Reference Range Interpretation Comments PHOSPHORUS (BEAKER) 4.0 mg/dL 2.3-4.7 Specimen slightly (test code = 604) hemolyzed Recycling Manager ID - RUFUS MBASIC METABOLIC [id number] 05:18:00 Test Item Value Reference Range Interpretation [...] S NOT APPLICABLE FOR DIALYSIS PATIEN TS. Recycling Manager ID - RUFUS MCBC W/PLT COUNT & AUTO [id number] 05:05:00 Test Item Value Reference Range Interpretation [...] = 2801) RAD, CHEST, 1 VIEW, NON [id number] 03:29:00Reason for exam:->RLL Carcinoma, frequent pleural effusion.Should [...] None. Signed: Mayela Caraballo MDReport Verified Date/Time: 11/20/2019 03:29:54 [id number] 04:48:00 Test Item Value Reference Range Interpretation Comments MAGNESIUM (BEAKER) 2.1 mg/dL 1.6-2.6 Specimen slightly (test code = 627) hemolyzed Recycling Manager ID - PIAYA LBASIC METABOLIC [id number] 04:48:00 Test Item Value Reference Range Interpretation [...] S NOT APPLICABLE FOR DIALYSIS PATIEN TS. Recycling Manager ID - PIAYA [id number] 04:21:00 Test Item Value Reference Range Interpretation Comments PHOSPHORUS (BEAKER) 3.7 mg/dL 2.3-4.7 Specimen slightly (test code = 604) hemolyzed Recycling Manager ID - PIAYA LRAD, CHEST, 1 VIEW, NON [id number] 03:54:00Reason for exam:->RLL Carcinoma, frequent pleural effusion.Should [...] (BEAKER) (test code = 2801) Hemoglobin and [id number] 22:17:00 Test Item Value Reference Range Interpretation Comments Hemoglobin (test code = 10.1 13.7- 17.5 GM/DL L 786-4) Hematocrit (test code = 31.7 % 40.1-51 L 4544-3) FAIZA (test code = FAIZA) Recycling Manager ID - [id number] Lab Interpretation (test Abnormal code = 59989-8) [facility] [id number] 22:17:00 Test Item Value Reference Range Interpretation Comments HEMOGLOBIN (BEAKER) (test code = 10.1 GM/DL 13.7-17.5 L 410) HEMATOCRIT (BEAKER) (test code = 31.7 % 40.1-51.0 L 411) Recycling Manager ID - 6000Blood [id number] 20:00:00 Test Item Value Reference Range Interpretation Comments Result (test code = No growth in 5 days 6463-4) [facility] [id number] 20:00:00 Test Item Value Reference Range Interpretation Comments CULTURE (BEAKER) (test No growth in 5 days code = 1095) BLOOD [id number] 20:00:00 Test Item Value Reference Range Interpretation Comments CULTURE (BEAKER) (test No growth in 5 days code = 1095) [id number] 04:53:00 Test Item Value Reference Range Interpretation Comments PHOSPHORUS (BEAKER) (test code = 2.7 mg/dL 2.3-4.7 604) Recycling Manager ID - PEACE [id number] 04:53:00 Test Item Value Reference Range Interpretation Comments MAGNESIUM (BEAKER) (test code = 2.0 mg/dL 1.6-2.6 627) Recycling Manager ID - TANNERAYA LBASIC METABOLIC [id number] 04:53:00 Test Item Value Reference Range Interpretation [...] S NOT APPLICABLE FOR DIALYSIS PATIEN TS. Recycling Manager ID - PIAYA LCBC W/PLT COUNT & AUTO [id number] 04:34:00 Test Item Value Reference Range Interpretation [...] = 2801) RAD, CHEST, 1 VIEW, NON [id number] 03:41:00Reason for exam:->RLL Carcinoma, frequent pleural effusion.Should [...] (test code = 2.3 mg/dL 1.6-2.6 627) Recycling Manager ID - DBBASIC METABOLIC [id number] 18:29:00 Test Item Value Reference Range Interpretation [...] S NOT APPLICABLE FOR DIALYSIS PATIEN TS. Recycling Manager ID - DBHEMOGLOBIN AND [id number] 18:08:00 Test Item Value Reference Range Interpretation Comments HEMOGLOBIN (BEAKER) (test code = 9.4 GM/DL 13.7-17.5 L 410) HEMATOCRIT (BEAKER) (test code = 29.9 % 40.1-51.0 L 411) Recycling Manager ID - 6000Plasma free [id number] 12:52:00 Test Item Value Reference Range Interpretation Comments Hgb, Plasma (test code = 721-1) 40.0 mg/dl 0-30 H Lab Interpretation (test code = Abnormal 84273-2) [facility] [id number] 12:52:00 Test Item Value Reference Range Interpretation Comments HEMOGLOBIN PLASMA (BEAKER) (test 40.0 mg/dl 0.0-30.0 H code = 1054) HEMOGLOBIN AND [id number] 12:25:00 Test Item Value Reference Range Interpretation Comments HEMOGLOBIN (BEAKER) (test code = 10.0 GM/DL 13.7-17.5 L 410) HEMATOCRIT (BEAKER) (test code = 31.8 % 40.1-51.0 L 411) Recycling Manager ID - [id number], CHEST, 1 VIEW, NON [id number] 05:00:00Reason for exam:->RLL Carcinoma, frequent pleural effusion.Should [...] None. Signed: Mayela Caraballo MDReport Verified Date/Time: 11/17/2019 05:00:17 Electronically signed by: MAYELA CARABALLO MD on 11/16 05:00 AMBASIC METABOLIC [id number] 04:21:00 Test Item Value Reference Range Interpretation [...] S NOT APPLICABLE FOR DIALYSIS PATIEN TS. Recycling Manager ID - RUFUS [id number] 04:18:00 Test Item Value Reference Range Interpretation Comments MAGNESIUM (BEAKER) 1.9 mg/dL 1.6-2.6 Specimen slightly (test code = 627) hemolyzed Recycling Manager ID - RUFUS [id number] 04:18:00 Test Item Value Reference Range Interpretation Comments PHOSPHORUS (BEAKER) 2.7 mg/dL 2.3-4.7 Specimen slightly (test code = 604) hemolyzed Recycling Manager ID - RUFUS MCBC W/PLT COUNT & AUTO [id number] 03:59:00 Test Item Value Reference Range Interpretation [...] = 2801) RAD, CHEST, 1 VIEW, NON [id number] 17:55:00Reason for exam:->post right sided thoracentesisShould this [...] Madison Davison VerifiedDate/Time: 11/16/2019 17:55:32 Reading Location: [address] Neuro Reading Room Transesophageal echo 2019-11-16 13:45:22Ejection FractionSLEH ECHO HEARTLAB MKCKESSON CPACSInterface, External Ris In - 11/16/2019 1:45 PM CDTTransesophageal Echocardiography Report (MAKAYLA) Demographics Patient Name MAYRA, Date of Study 11/15/2019 ARTHUR Gender Male Visit Number [id number] Race Unknown Room Number 6104 Number Date of 1930 Referring Physician Gabriel Streeter MD Age 89 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 Signature Findings Rhythm/BP Interventional MAKAYLA (cpt 57890) for guidance of percutaneous intracardiac procedure. 3D imaging (cpt 33886) rendering with interpretation was performed. 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 4. Mild to moderate mitral regurgitation. Gocq-lk-ptmaergz tricuspid regurgitation Previous Study In comparison with [...] Mild to moderate mitral regurgitation. Tricuspid Valve Paot-ie-kkuldcxy tricuspid regurgitation. Estimated peak systolic PA pressure [...] LVOT CO: 5.32 l/min LVOT CI: 2.92 l/min/m^[facility] Prothrombin time/[id number] 12:12:00 Test Item Value Reference Range Interpretation [...] valves. Lab Interpretation Abnormal (test code = 38714-8) [id number] 12:12:00 Test Item Value Reference Range Interpretation Comments Protime (test code = 15.7 11.9- 14.2 H 5902-2) seconds INR (test code = 1.3 <=5.9 6301-6) PTT (test code = 37.0 22.5- 36.0 H 56194-4) seconds FAIZA (test code = FAIZA) Effective 11/01/2018: PT Reference Range ChangeNew: 11.9-14.2 Previous: 11.7-14.7 RECOMMENDED COUMADIN/WARFARIN INR THERAPY RANGESSTANDARD DOSE: 2.0-3.0 Includes: PROPHYLAXIS for venous thrombosis, systemic embolization; TREATMENT for venous thrombosis and/or pulmonary embolus.HIGH RISK: Target INR is 2.5-3.5 for patients wiht mechanical heart valves. Lab Interpretation Abnormal (test code = 87619-0) [facility] CenterPROTHROMBIN TIME/[id number] 12:12:00 Test Item Value Reference Range Interpretation [...] INR is2.5-3.5 for patients wiht mechanical heart valves.PT/[id number] 12:12:00 Test Item Value Reference Range Interpretation [...] INR is2.5-3.5 for patients wiht mechanical heart valves.Uxjqavypkxq4785-49-04 10:07:00 Test Item Value Reference Range Interpretation Comments Haptoglobin (test code = 226 mg/dL 14 4542-7) FAIZA (test code = FAIZA) Recycling Manager ID - NTP Lab Interpretation (test Normal code = 65512-7) [facility] CenterHAPTOGLOBIN2020-06-12 10:07:00 Test Item Value Reference Range Interpretation Comments HAPTOGLOBIN (BEAKER) (test code = 226 mg/dL 14-258 366) Recycling Manager ID - NTPReticulocyte ldvmj1634-64-06 09:49:00 Test Item Value Reference Range Interpretation Comments % Retic (test code = 1.6 % 0.5-1.8 56790-9) FAIZA (test code = FAIZA) Recycling Manager ID - [id number] Lab Interpretation (test Normal code = 87261-0) [facility] CenterRETICULOCYTE [id number] 09:49:00 Test Item Value Reference Range Interpretation Comments RETICULOCYTE COUNT PCT (BEAKER) (test 1.6 % 0.5-1.8 code = 575) Recycling Manager ID - [id number] AND RLHDUDBILH1949-30-65 09:49:00 Test Item Value Reference Range Interpretation Comments HEMOGLOBIN (BEAKER) (test code = 10.3 GM/DL 13.7-17.5 L 410) HEMATOCRIT (BEAKER) (test code = 31.7 % 40.1-51.0 L 411) Recycling Manager ID - [id number] dehydrogenase (LDH)2019-11-16 09:45:00 Test Item Value Reference Range Interpretation Comments LDH (test code = 2532-0) 191 U/L 125-220 FAIZA (test code = FAIZA) Recycling Manager ID - ROSIANG Lab Interpretation (test Normal code = 77147-0) [facility] CenterLACTATE DEHYDROGENASE (LDH)2019-11-16 09:45:00 Test Item Value Reference Range Interpretation Comments LACTATE DEHYDROGENASE (BEAKER) (test 191 U/L 125-220 code = 635) Recycling Manager ID - PEDRITOIANGRAD, CHEST, 1 VIEW, NON [id number] 04:46:00Reason for exam:->RLL Carcinoma, frequent pleural effusion.Should this be performed at the bedside?->YesFINAL REPORT RAD, CHEST, 1 VIEW, NON DEPT INDICATION: RLL Carcinoma, frequentpleural effusion. COMPARISON: Prior day's exam FINDINGS: Portable frontal view of the chest. IMPRESSION: Support Lines: Stable. Lungs and pleura: Unchanged airspace and pleural opacities. No pneumothorax.Heart and mediastinum: Stable contours. Stable surgical changes.Additional findings: None. Signed: Beverly Ugarte MDReport Verified Date/Time: 11/16/2019 04:46:58 Blood gas, [id number] 04:39:00 Test Item Value Reference Range Interpretation Comments pH, Arterial (test code = 2744-1) 7.53 7.35-7.45 H pCO2, Arterial (test code = 33 35- 45 mmHg L 2018-8) pO2, Arterial (test code = 2703-7) 180 80- 90 mmHg H O2 Sat, Arterial (test code = 99.4 % 96-97 H 2708-6) HCO3, Arterial (test code = 27 mmol/L 21-29 1960-4) Base Excess, Arterial (test code = 3.9 mmol/L -2-3 H 1925-7) Patient Temperature (test code = 37.0 C 8310-5) FIO2 (test code = 1819) 40 % Lab Interpretation (test code = Abnormal 19327-6) [facility] CenterBLO[facility] GAS, [id number] 04:39:00 Test Item Value Reference Range Interpretation [...] (BEAKER) (test code = 1819) 40.0 % [id number] 03:16:00 Test Item Value Reference Range Interpretation Comments PHOSPHORUS (BEAKER) (test code = 4.2 mg/dL 2.3-4.7 604) Recycling Manager ID - RUFUS [id number] 03:16:00 Test Item Value Reference Range Interpretation Comments MAGNESIUM (BEAKER) (test code = 2.0 mg/dL 1.6-2.6 627) Recycling Manager ID - RUFUS MBASIC METABOLIC [id number] 03:16:00 Test Item Value Reference Range Interpretation [...] S NOT APPLICABLE FOR DIALYSIS PATIEN TS. Recycling Manager ID - RUFUS MCBC W/PLT COUNT & AUTO [id number] 03:14:00 Test Item Value Reference Range Interpretation [...] (BEAKER) (test code = 2801) BLOOD GAS, [id number] 00:29:00 Test Item Value Reference Range Interpretation [...] code = 1819) 40.0 % BLOOD GAS, [id number] 22:26:00 Test Item Value Reference Range Interpretation [...] 40.0 % RAD, CHEST, 1 VIEW, NON [id number] 21:22:00Reason for exam:->post intubationShould this be performed at the bedside?->YesFINAL REPORT RAD, CHEST, 1 VIEW, NON DEPT INDICATION: post intubation COMPARIS ON: day's exam FINDINGS: Portable frontal view of [...] cardiac valve repair.Additional findings: None. Signed: Beverly Ugarteconnecticut hospice Verified Date/Time: 11/15/2019 21:22:15 Comprehensive metabolic [id number] 17:23:00 Test Item Value Reference Range Interpretation Comments Protein, Total (test 5.5 6.0- 8.3 gm/dL L Speci men slightly code = 2885-2) hemolyzed Albumin (test code = 2.4 g/dL 3.5-5 L Specime n slightly 32556-8) hemolyzed Alkaline Phosphatase 54 U/L 40-150 (test code = 6768-6) Total Bilirubin (test 0.8 mg/dL 0.2-1.2 Specim en slightly code = 1974-2) hemolyzed Sodium (test code = 138 meq/L 755-348 6797-2) Potassium (test code = 3.5 meq/L 3.5-5.1 Speci men slightly 2823-3) hemolyzed Chloride (test code = 103 meq/L 98-107 2075-0) CO2 (test code = 25 meq/L 22-29 2028-9) BUN (test code = 17 mg/dL 7-21 3094-0) Creatinine (test code 1.03 mg/dL 0.57-1.25 Specim en slightly = 2160-0) hemolyzed Glucose (test code = 164 mg/dL 70-105 H 2345-7) Calcium (test code = 8.4 mg/dL 8.4-10.2 34111-3) AST (test code = 19 U/L 5-34 Specimen sl ightly 1920-8) hemolyzed ALT (test code = 14 U/L 6-55 Specimen sl ightly 1742-6) hemolyzed EGFR (test code = 68 mL/min/1.73 [place] [address]-6) NOT ACCURATE CREATININE CLEARANCE IN PREDICTING GLOMERULAR FILTRATION RATE . ESTIMATED GFR I S NOT APPLICABLE FOR DIALYSIS PATIENTS. FAIZA (test code = FAIZA) Recycling Manager ID - BS Lab Interpretation Abnormal (test code = 07750-7) [facility] CenterMAGNESIUM2020-06-11 17:23:00 Test Item Value Reference Range Interpretation Comments MAGNESIUM (BEAKER) 2.1 mg/dL 1.6-2.6 Specimen slightly (test code = 627) hemolyzed Recycling Manager ID - BSCOMPREHENSIVE METABOLIC [id number] 17:23:00 Test Item Value Reference Range Interpretation [...] S NOT APPLICABLE FOR DIALYSIS PATIEN TS. Recycling Manager ID - BSBLOOD GAS, [id number] 17:07:00 Test Item Value Reference Range Interpretation [...] 60.0 % CBC W/PLT COUNT & AUTO [id number] 17:07:00 Test Item Value Reference Range Interpretation [...] PERCENT (BEAKER) (test code = 2801) Prepare [id number] 16:14:00 Test Item Value Reference Range Interpretation Comments CROSSMATCH (test code = COMPATIBLE 4) Unit ABO (test code = A Pos 7159170) UNIT NUMBER (test code = [id number] 934-0) Status (test code = RETURNED FROM ISSUE 8821259) Blood Bank Product (test RED BLOOD CELLS code = 2263) PRODUCT CODE (test code = [id number] 933-2) [facility] CenterPO ACTIVATED CLOTTING [id number] 14:24:00 Test Item Value Reference Range Interpretation Comments Activated Clotting Time 252 sec : 74 -137 seconds, (test code = 441) Baseline: TESTED AT [facility] [address] [facility], [address]: Recycling Manager/Techni sophie ID = [id number] for FE JOLYNN DIETZ [facility] CenterPOCT-[id number] 14:24:00 Test Item Value Reference Range Interpretation Comments ACTIVATED CLOTTING TIME 252 sec : 74 -137 seconds, (BEAKER) (test code = Baseli ne: TESTED AT [address]) [facility] [address] [facility], [address]: Recycling Manager/Techni sophie ID = [id number] for FE JOLYNN DIETZ Calcium, [id number] 13:44:00 Test Item Value Reference Range Interpretation Comments Calcium, Ion (test code = 1994-3) 1.10 mmol/L 1.12-1.27 L pH, Blood (test code = 34183-7) 7.52 Lab Interpretation (test code = Abnormal 73792-1) [facility] CenterHGB/HCT (H&H)-Stat [id number] 13:44:00 Test Item Value Reference Range Interpretation Comments Hemoglobin (test code = 786-4) 11.4 g/dL 13-16.8 L Hematocrit (test code = 4544-3) 34.0 % 40-50 L Lab Interpretation (test code = Abnormal 85891-1) [facility] CenterGlucose-Stat [id number] 13:44:00 Test Item Value Reference Range Interpretation Comments Glucose (test code = 2345-7) 113 mg/dL 70-110 H Lab Interpretation (test code = Abnormal 35964-4) [facility] [id number] 13:44:00 Test Item Value Reference Range Interpretation Comments Sodium (test code = 2951-2) 133 meq/L 136-145 L Lab Interpretation (test code = Abnormal 38845-6) [facility] CenterBLOOD GAS, [id number] 13:44:00 Test Item Value Reference Range Interpretation [...] code = 1819) 60.0 % SODIUM NA-STAT [id number] 13:44:00 Test Item Value Reference Range Interpretation Comments SODIUM (BEAKER) (test code = 381) 133 meq/L 136-145 L GLUCOSE-STAT [id number] 13:44:00 Test Item Value Reference Range Interpretation Comments GLUCOSE RANDOM (BEAKER) (test code 113 mg/dL 70-110 H = 652) HGB/HCT (H&H) - STAT [id number] 13:44:00 Test Item Value Reference Range Interpretation Comments HEMOGLOBIN (BEAKER) (test code = 11.4 g/dL 13.0-16.8 L 410) HEMATOCRIT (BEAKER) (test code = 34.0 % 40.0-50.0 L 411) CALCIUM, [id number] 13:44:00 Test Item Value Reference Range Interpretation Comments CALCIUM IONIZED (BEAKER) (test 1.10 mmol/L 1.12-1.27 L code = 698) PH, BLOOD (BEAKER) (test code = 7.52 1810) Potassium-Stat [id number] 13:43:00 Test Item Value Reference Range Interpretation Comments Potassium (test code = 2823-3) 3.6 meq/L 3.6-5.5 Lab Interpretation (test code = Normal 09388-9) [facility] CenterPOTASSIUM-STAT [id number] 13:43:00 Test Item Value Reference Range Interpretation Comments POTASSIUM (BEAKER) (test code = 3.6 meq/L 3.6-5.5 379) POC-Glucose [id number] 12:11:00 Test Item Value Reference Range Interpretation Comments POC-Glucose Meter (test 116 mg/dL 70-110 H : TE STED AT [facility] code = 1538) [address] [facility], [address]: Recycling Manager/Techni sophie ID = [id number] for SANDRA, DAVIDAULA Lab Interpretation (test Abnormal code = 43841-9) [facility] CenterPOCT-GLUCOSE [id number] 12:11:00 Test Item Value Reference Range Interpretation Comments POC-GLUCOSE METER 116 mg/dL 70-110 H : TESTED A T [facility] [address] (BEAKER) (test code = CRISTA Estevez [facility], 1538) [address]: Recycling Manager/Techni sophie ID = [id number] for BE LL, BEAULA RAD, CHEST, 1 VIEW, NON [id number] 04:58:00Reason for exam:->RLL Carcinoma, frequent pleural effusion.Should [...] Stable contours. Additional findings: None. Signed: Mayela Caraballoeproberto carlos Verified Date/Time: 11/15/2019 04:58:43 [id number] 04:00:00 Test Item Value Reference Range Interpretation Comments PHOSPHORUS (BEAKER) (test code = 3.1 mg/dL 2.3-4.7 604) Recycling Manager ID - PISHER OVAEKIAJZR5966-14-07 04:00:00 Test Item Value Reference Range Interpretation Comments MAGNESIUM (BEAKER) (test code = 2.0 mg/dL 1.6-2.6 627) Recycling Manager ID - PISHER LBASIC METABOLIC [id number] 04:00:00 Test Item Value Reference Range Interpretation [...] S NOT APPLICABLE FOR DIALYSIS PATIEN TS. Recycling Manager ID - PIAYA [id number] 03:53:00 Test Item Value Reference Range Interpretation Comments PTT (test code = 93057-1) 79.3 22.5- 36.0 seconds H Lab Interpretation (test code = Abnormal 02262-5) [facility] CenterAPTT2020-06-[facility] 03:53:00 Test Item Value Reference Range Interpretation Comments PARTIAL THROMBOPLASTIN TIME 79.3 seconds 22.5-36.0 H (BEAKER) (test code = 760) CBC W/PLT COUNT & AUTO [id number] 03:39:00 Test Item Value Reference Range Interpretation [...] = 2801) RAD, CHEST, 1 VIEW, NON [id number] 23:40:00Reason for exam:->coughing up bloodShould this be [...] 11/14/2019 23:40:14 CBC W/PLT COUNT & AUTO [id number] 22:59:00 Test Item Value Reference Range Interpretation [...] (BEAKER) (test code = 2801) BASIC METABOLIC [id number] 06:46:00 Test Item Value Reference Range Interpretation [...] S NOT APPLICABLE FOR DIALYSIS PATIEN TS. Recycling Manager ID - RUFUS [id number] 06:35:00 Test Item Value Reference Range Interpretation Comments PHOSPHORUS (BEAKER) (test code = 3.1 mg/dL 2.3-4.7 604) Recycling Manager ID - RUFUS [id number] 06:35:00 Test Item Value Reference Range Interpretation Comments MAGNESIUM (BEAKER) (test code = 2.0 mg/dL 1.6-2.6 627) Recycling Manager ID - RUFUS MCBC W/PLT COUNT & AUTO [id number] 06:12:00 Test Item Value Reference Range Interpretation [...] 0-1 PERCENT (BEAKER) (test code = 2801) [id number] 06:00:00 Test Item Value Reference Range Interpretation Comments PARTIAL THROMBOPLASTIN TIME 79.4 seconds 22.5-36.0 H (BEAKER) (test code = 760) RAD, CHEST, 1 VIEW, NON [id number] 04:47:00Reason for exam:->RLL Carcinoma, frequent pleural effusion.Should [...] Mayela Caraballo MDReport Verified Date/Time: 11/14/2019 04:47:35 [id number] 01:22:00 Test Item Value Reference Range Interpretation Comments PARTIAL THROMBOPLASTIN TIME 72.3 seconds 22.5-36.0 H (BEAKER) (test code = 760) [id number] 17:51:00 Test Item Value Reference Range Interpretation Comments PARTIAL THROMBOPLASTIN TIME 64.3 seconds 22.5-36.0 H (BEAKER) (test code = 760) Type and screen, [id number] 13:33:00 Test Item Value Reference Range Interpretation Comments ABO/RH AUTOMATED (BEAKER) (test A POSITIVE code = 2260) Ab Scrn (test code = 890-4) NEGATIVE [facility] CenterUrinalysis w/Microscopic + Reflex to Culture 2019-11-13 12:50:00 Test Item Value Reference Range Interpretation Comments Color, UA (test code = Light Yellow 5778-6) Clarity, UA (test code Clear = 5767-9) Specific Goodrich, UA 1.014 1.001-1.035 (test code = 5811-5) pH, UA (test code = 6.5 5.0-8.0 5803-2) Protein, UA (test code Negative Negative = 64076-7) Glucose, UA (test code Negative Negative = 365) Ketones, UA (test code Negative Negative = 2514-8) Bilirubin, UA (test Negative Negative code = 32628-4) Blood, UA (test code = Negative Negative 87592-5) Nitrite, UA (test code Negative Negative = 5802-4) Leukocytes, UA (test Negative Negative code = 5799-2) Urobilinogen, UA (test 0.2 mg/dL 0.2-1 code = 13111-5) RBC, UA (test code = 1 /HPF 07724-3) WBC, UA (test code = 1 /HPF 5821-4) Squam Epithel, UA (test <1 /HPF code = 15853-8) Hyaline Casts, UA (test 1 /LPF code = 08535-1) Yeast (test code = Rare 29602-8) Specimen Source (test code = 2795) FAIZA (test code = FAIZA) Recycling Manager ID - [auto]Recycling Manager ID - tech [facility] CenterURINALYSIS W/ REFLEX URINE [id number] 12:50:00 Test Item Value Reference Range Interpretation [...] Rare 1585) SOURCE(BEAKER) (test code = 2795) Recycling Manager ID - [auto]Recycling Manager ID - gxceSQEX6396-94-61 12:32:00 Test Item Value Reference Range Interpretation Comments PARTIAL THROMBOPLASTIN TIME 73.5 seconds 22.5-36.0 H (BEAKER) (test code = 760) CALCIUM, [id number] 06:07:00 Test Item Value Reference Range Interpretation Comments CALCIUM IONIZED (BEAKER) (test 1.10 mmol/L 1.12-1.27 L code = 698) PH, BLOOD (BEAKER) (test code = 7.44 1810) [id number] 05:55:00 Test Item Value Reference Range Interpretation Comments PARTIAL THROMBOPLASTIN TIME 60.7 seconds 22.5-36.0 H (BEAKER) (test code = 760) Hepatic function [id number] 05:33:00 Test Item Value Reference Range Interpretation Comments Protein, Total (test code 5.4 6.0- 8.3 gm/dL L = 2885-2) Albumin (test code = 2.5 g/dL 3.5-5 L 68437-0) Total Bilirubin (test code 0.9 mg/dL 0.2-1.2 = 1975-2) Bilirubin, Direct (test 0.5 mg/dL 0.1-0.5 code = 1968-7) Alkaline Phosphatase (test 54 U/L 40-150 code = 6768-6) AST (test code = 1920-8) 15 U/L 5-34 ALT (test code = 1742-6) 17 U/L 6-55 FAIZA (test code = FAIZA) Recycling Manager ID - RUFUS M Lab Interpretation (test Abnormal code = 12270-1) [facility] CenterPHOSPHORUS2020-06-09 05:33:00 Test Item Value Reference Range Interpretation Comments PHOSPHORUS (BEAKER) (test code = 2.9 mg/dL 2.3-4.7 604) Recycling Manager ID - RUFUS [id number] 05:33:00 Test Item Value Reference Range Interpretation Comments MAGNESIUM (BEAKER) (test code = 2.1 mg/dL 1.6-2.6 627) Recycling Manager ID - RUFUS MBASIC METABOLIC [id number] 05:33:00 Test Item Value Reference Range Interpretation [...] S NOT APPLICABLE FOR DIALYSIS PATIEN TS. Recycling Manager ID - RUFUS MHEPATIC FUNCTION [id number] 05:33:00 Test Item Value Reference Range Interpretation [...] (test code = 17 U/L 6-55 347) Recycling Manager ID - RUFUS MCBC W/PLT COUNT & AUTO [id number] 05:32:00 Test Item Value Reference Range Interpretation [...] 0-1 PERCENT (BEAKER) (test code = 2801) [id number] 20:40:00 Test Item Value Reference Range Interpretation Comments PARTIAL THROMBOPLASTIN TIME 51.3 seconds 22.5-36.0 H (BEAKER) (test code = 760) BASIC METABOLIC [id number] 17:28:00 Test Item Value Reference Range Interpretation [...] S NOT APPLICABLE FOR DIALYSIS PATIEN TS. Recycling Manager ID - FRDOMIGDCR5566-59-33 15:58:00Medical Cytology Report Case: [id number] Authorizing Provider: Yoly Qiu NP Collected: 11/11/2019 05:22 PM Ordering Location: [place] [address] ccu Received: 11/12/2019 09:03 AM Pathologist: Berenice Eng MD Specimen: Pleural, Right RIGHT PLEURAL FLUID (CYTOSPINS): - REACTIVE MESOTHELIAL CELLS IN A BACKGROUND OF MIXED INFLAMMATION - MALIGNANT CELLS NOT IDENTIFIED Signing Pathologist Direct Phone Line: [phone] signedby Berenice Eng MD on 11/12/2019 at 3:58 [id number] pleural effusion, recently diagnosed with lung cancer (see surgical case [id number])RIGHT PLEURAL FLUID 8 mls clear yellow-orange fluid; 4 cytospinsCollected: [id number]: [id number].[facility], Department of Pathology, [address] [place] [address], [facility], Department of [facility]ology, [address] [place] [address], [facility], Department of [facility]ology, [address] [place] [address], [id number] 13:20:00 Test Item Value Reference Range Interpretation Comments PARTIAL THROMBOPLASTIN TIME 43.7 seconds 22.5-36.0 H (BEAKER) (test code = 760) HEPATIC FUNCTION [id number] 11:36:00 Test Item Value Reference Range Interpretation [...] (test code = 18 U/L 6-55 347) Recycling Manager ID - DONNA [id number] 06:10:00 Test Item Value Reference Range Interpretation Comments PHOSPHORUS (BEAKER) (test code = 3.4 mg/dL 2.3-4.7 604) Recycling Manager ID - RUFUS EDRPXDOKHF5422-00-41 06:10:00 Test Item Value Reference Range Interpretation Comments MAGNESIUM (BEAKER) (test code = 2.1 mg/dL 1.6-2.6 627) Recycling Manager ID - RUFUS MBASIC METABOLIC [id number] 06:10:00 Test Item Value Reference Range Interpretation [...] S NOT APPLICABLE FOR DIALYSIS PATIEN TS. Recycling Manager ID - RUFUS MCBC W/PLT COUNT & AUTO [id number] 06:06:00 Test Item Value Reference Range Interpretation [...] 0-1 PERCENT (BEAKER) (test code = 2801) [id number] 05:47:00 Test Item Value Reference Range Interpretation Comments PARTIAL THROMBOPLASTIN TIME 45.4 seconds 22.5-36.0 H (BEAKER) (test code = 760) [id number] 21:56:00 Test Item Value Reference Range Interpretation Comments PARTIAL THROMBOPLASTIN TIME 36.0 seconds 22.5-36.0 (BEAKER) (test code = 760) Body fluid cell count with [id number] 14:32:00 Test Item Value Reference Range Interpretation Comments Appearance (test code = 9335-1) Cloudy Clear A Color (test code = 6824-7) Yellow Colorless, Straw A RBCs (test code = 05458-6) 6000 <=1 /cu mm H Adjusted WBC Count (test code = 1392 <=5 /cu mm H 06457-0) Lining Cells (test code = 0 <=1 /cu mm 68290-3) % Segs (test code = 98019-1) 37 % % Lymphs (test code = 77686-0) 44 % % Monos (test code = 25708-6) 19 % % Eos (test code = 59269-4) 0 % % Baso (test code = 79091-3) 0 % Container Body Fluid (test code Sterile Vial = 2873) Lab Interpretation (test code = Abnormal 65109-3) [facility] CenterB[facility] WITH [id number] 14:32:00 Test Item Value Reference Range Interpretation [...] (BEAKER) Sterile Vial (test code = 2873) [id number] 13:31:00 Test Item Value Reference Range Interpretation Comments PARTIAL THROMBOPLASTIN TIME 35.1 seconds 22.5-36.0 (BEAKER) (test code = 760) 6 hours after starting heparin infusion and as indicated per sliding scaleU/S, [id number] 13:03:00Laterality?->RightReason for exam:- >pleural effusionShould this be [...] 2% lidocaine anesthesia was administered. A 4 Turkmen catheter was advanced into the pleural cavity and 1200 cc of serosanguineous fluid was removed. The catheter was removed without immediate complication. Samples were left at the patient's bedside. IMPRESSION:Uncomplicated ultrasound-guided right thoracentesis with 1200 cc fluid removed. Signed: Td Tran MDReport Verified Date/Time: 11/11/2019 13:03:08 Reading Location: [address] Body Reading Room RAD, CHEST, 1 VIEW, NON [id number] 12:24:00Reason for exam:->s/p ThoracentesisShould this be performed [...] chest radiograph from earlier same date. Signed: dT Tran MDReport Verified Date/Time: 11/11/2019 12:24:42 Reading Location: [facility] C013Y CT Body Reading Room RAD, CHEST, 1 VIEW, NON [id number] 09:18:00Reason for exam:->sobShould this be performed at the bedside?->Yes FINAL REPORT Chest, one view HISTORY: Shortness of breath Comparison: 11/09/2019 Findings: Lungs: Patchy bilateral airspace disease, similar to previous examination. Heart: Normal in size. Pleura: Moderate right pleural effusion, similar in size. No pneumothorax is apparent. Bones: Unremarkable. Lines/tubes: Unchanged satisfactory position of right PICC line. Signed: Travis Bermudezort Verified Date/Time: 11/11/2019 09:18:25 Reading Location: [facility] C013X Ortho Consult Reading Room CBC W/PLT COUNT & AUTO [id number] 06:43:00 Test Item Value Reference Range Interpretation [...] 0-1 PERCENT (BEAKER) (test code = 2801) [id number] 06:17:00 Test Item Value Reference Range Interpretation Comments PHOSPHORUS (BEAKER) (test code = 3.2 mg/dL 2.3-4.7 604) Recycling Manager ID - SEVQIMAVGZQ2828-01-56 06:17:00 Test Item Value Reference Range Interpretation Comments MAGNESIUM (BEAKER) (test code = 2.0 mg/dL 1.6-2.6 627) Recycling Manager ID - DBBASIC METABOLIC [id number] 06:17:00 Test Item Value Reference Range Interpretation [...] S NOT APPLICABLE FOR DIALYSIS PATIEN TS. Recycling Manager ID - DBPOCT-GLUCOSE [id number] 12:03:00 Test Item Value Reference Range Interpretation Comments POC-GLUCOSE METER 108 mg/dL 70-110 : TESTED A T [facility] 6720 (BEAKER) (test code = CRISTA Estevez [facility], 1538) [address]: Recycling Manager/Techni sophie ID = [id number] for BETI GONGORA [id number] 11:23:00 Test Item Value Reference Range Interpretation Comments Potassium (test code = 3.5 meq/L 3.5-5.1 2823-3) FAIZA (test code = FAIZA) Recycling Manager ID - DONNA C Lab Interpretation (test Normal code = 79954-6) [facility]00 Test Item Value Reference Range Interpretation Comments POTASSIUM (BEAKER) (test code = 3.5 meq/L 3.5-5.1 379) Recycling Manager ID - DONNA [id number] 11:23:00 Test Item Value Reference Range Interpretation Comments MAGNESIUM (BEAKER) (test code = 2.3 mg/dL 1.6-2.6 627) Recycling Manager ID - DONNA CPOCT-GLUCOSE [id number] 07:59:00 Test Item Value Reference Range Interpretation Comments POC-GLUCOSE METER 131 mg/dL 70-110 H : TESTED A T [facility] 6720 (BEAKER) (test code [facility], = 1538) 61130: Recycling Manager/Techni sophie ID = [id number] for RAFAELA BELLETAMICA POCT-GLUCOSE [id number] 07:42:00 Test Item Value Reference Range Interpretation Comments POC-GLUCOSE METER 57 mg/dL 70-110 L : [facility] ([facility]ER[facility] (test code = [place], 1538) [address]: Recycling Manager/Techni sophie ID = [id number] for HELADIO GONZALEZ [id number] 04:50:00 Test Item Value Reference Range Interpretation Comments PHOSPHORUS (BEAKER) (test code = 2.7 mg/dL 2.3-4.7 604) Recycling Manager ID - SOPHIA MODHKBJCOE7057-51-12 04:50:00 Test Item Value Reference Range Interpretation Comments MAGNESIUM (BEAKER) (test code = 1.8 mg/dL 1.6-2.6 627) Recycling Manager ID - SOPHIA WBASIC METABOLIC [id number] 04:50:00 Test Item Value Reference Range Interpretation [...] 697) EGFR (BEAKER) (test 79 mL/min/1.73 ESTIMA MANOD GFR IS code = 1092) sq m NOT ACCURATE CREATININE CLEARANCE IN PREDICTING GLOMERULAR FILTRATION RATE . ESTIMATED GFR I S NOT APPLICABLE FOR DIALYSIS PATIEN TS. Recycling Manager ID - SOPHIA WPROTHROMBIN TIME/[id number] 04:19:00 Test Item Value Reference Range Interpretation [...] mechanical heart valves.CBC W/PLT COUNT & AUTO [id number] 04:11:00 Test Item Value Reference Range Interpretation [...] PERCENT (BEAKER) (test code = 2801) POCT-GLUCOSE [id number] 22:30:00 Test Item Value Reference Range Interpretation Comments POC-GLUCOSE METER 121 mg/dL 70-110 H : TESTED A T [facility] 6720 (BEAKER) (test code = [facility] Zenaida [facility], 1538) [address]: Recycling Manager/Techni sophie ID = [id number] for Marbella Daniels Fungal [id number] 13:00:00 Test Item Value Reference Range Interpretation Comments Fungal Panel1 (test Refer to individual code = 2549) Aspergillus, Blastomyces, Coccidioides & Histoplasma Ab results. [facility] [id number] 11:50:00 Test Item Value Reference Range Interpretation Comments POC-GLUCOSE METER 85 mg/dL 70-110 : TESTED A T [facility] 6720 (BEAKER) (test code = [facility] Zenaida [facility], 1538) 63610: Recycling Manager/Techni sophie ID = [id number] for JANY ESPINOZA RAD, CHEST, 1 VIEW, NON [id number] 11:29:00Reason for exam:->shortness of breathShould this be [...] MDReport Verified Date/Time: 11/09/2019 11:29:21 Reading Location: [facility] Reading Room [id number] 05:40:00 Test Item Value Reference Range Interpretation Comments PHOSPHORUS (BEAKER) (test code = 2.6 mg/dL 2.3-4.7 604) Recycling Manager ID - TANNERSHER [id number] 05:40:00 Test Item Value Reference Range Interpretation Comments MAGNESIUM (BEAKER) (test code = 2.2 mg/dL 1.6-2.6 627) Recycling Manager ID - PEACE LBASIC METABOLIC [id number] 05:40:00 Test Item Value Reference Range Interpretation [...] S NOT APPLICABLE FOR DIALYSIS PATIEN TS. Recycling Manager ID - PISHER LCBC W/PLT COUNT & AUTO [id number] 05:36:00 Test Item Value Reference Range Interpretation [...] PERCENT (BEAKER) (test code = 2801) POCT-GLUCOSE [id number] 22:16:00 Test Item Value Reference Range Interpretation Comments POC-GLUCOSE METER 94 mg/dL 70-110 : TESTED A T [facility] 6720 (BEAKER) (test code = [place], 1538) [address]: Recycling Manager/Techni sophie ID = [id number] for Word Marbella noyola Lactic acid, [id number] 22:09:00 Test Item Value Reference Range Interpretation Comments Lactate, Venous (test code = 0.96 mmol/L 0.5-2.2 2872) FAIZA (test code = FAIZA) Recycling Manager ID - BS Lab Interpretation (test Normal code = 44118-9) [facility], [id number] 22:09:00 Test Item Value Reference Range Interpretation Comments LACTATE BLOOD VENOUS (2) (BEAKER) 0.96 mmol/L 0.50-2.20 (test code = 2872) Recycling Manager ID - BSOxygen saturation, [id number] 22:07:00 Test Item Value Reference Range Interpretation Comments O2 Saturation (Measured) (test code = 64.5 % 36369-8) [facility] Center[facility] SATURATION, [id number] 22:07:00 Test Item Value Reference Range Interpretation Comments O2 SATURATION (MEASURED) (BEAKER) 64.5 % (test code = 1455) POCT-GLUCOSE [id number] 17:32:00 Test Item Value Reference Range Interpretation Comments POC-GLUCOSE METER 103 mg/dL 70-110 : TESTED A T [facility] 6720 (BEAKER) (test code = [place] Zena[facility], 1538) 26543: Recycling Manager/Techni sophie ID = [id number] for BE NINO BEAULA FINE NEEDLE ASPIRATE BY [id number] 15:46:00Medical Cytology Report Case: [id number] Authorizing Provider: Luis Alberto Santiago MD Collected: 11/07/2019 04:04 PM Ordering Location: [place] [address] CCU Received: 11/07/2019 05:12 PM Pathologist: Berenice Eng MD Specimen: Lymph Node, Interlobar, Right, Station 11R LYMPH NODE, INT ERLOBAR, RIGHT, STATION 11R, FNA BY CLINICIAN (CYTOSPINS AND CELL BLOCK OF ASPIRATE): - SATISFACTORY FOR EVALUATION - NEGATIVE FOR METASTATIC MALIGNANT CELLS - EVIDENCE OF LYMPH NODE SAMPLING (POLYMORPHOUS LYMPHOID TISSUE PRESENT) Signing Pathologist Direct Phone Line: [phone] signed by Berenice Eng MD on 11/08/2019 at 3:46 PMPlease also see surgical pathology report [id number] and cytopathology reports [id number] and 1350. 00376, 18400Bqnoy lower lobe mass, mediastinal adenopathy, abnormal CT scan of chestLYMPH NODE, INTERLOBAR, RIGHT, STATION 11R FNAReceived 35 ml cytorich red fixative sample; prepared cell block(A2) and 2 cytospinsCollected: [id number]: [id number] tissue is seen in the cell block. [...] evaluated Immunohistochemistry technical testing was performed at [facility], Pathology Laboratory where it was developedand its [...] qualified to perform high complexity clinical laboratory testing.[facility], Department of Pathology, [address] [place] [address], [facility], [address] [place] [address], [facility], [facility], [address] [place], [place] [id number], Qudj Needle Aspiration by [id number] 15:40:00 Test Item Value Reference Range Interpretation Comments Case Report (test code Medical Cytology = 104) Report Case: [id number] Authorizing Provider: Luis Alberto Santiago MD Collected: 11/07/2019 04:11 PM Ordering Location: [place] [address] CCU Received: 11/07/2019 05:12 PM Pathologist: Berenice Eng MD Specimen: Lymph Node, Subcarinal, Station 7 DIAGNOSIS (test code = [id number] 3220) FuZzEwMzNcZnRuYmpcdWMx IFwoipCzNHbed9KgT1WaQs AwMFxhbnNpXGRlZmxhbmcx EKQhJNC2hfBhMDVlXMlzPA HsTZrnEg1ltSDwoEltEtLk JYLqg4exauWQdenzkGa1p2 kaHEPhObL7uMStAJvmB5na ygUbsLMiADSuYYn1zW55UB FnwH5qmFEgBUpakoUwKEuz zgXwhwHbZsp2WFHuU8hyNZ JkOHIpT4DoEP6fKBEjQad9 FKK7JLG5jZogd4I4nGZalR CwfPwnJkMvYbLhHKEXz0Vv MNs8cVruV2QdINOgZyJ1nZ QgUGFyYWdyYXBoIEZvbnQ7 mC80UThafbD0gVGtw9Ncn8 3ud267iR1ilVWhPJG9SBVk DZXjaXRwAFHtRDO7MWIilN AwO7f2MkUktKOwB8T8ZpVk tIYsO3V7BuZmiLVdF7E4Ov OjoBRnJMAneHAbCz9cjDIl yLNxui6fbi91OMS2j1TatM tzWQR7NQC2LbPxNu4noRHz CINfWS9iQjNrxPLsGIHvsg 35oEyjBPbgxqYmfF5xTmAw NLNjjCUkPFCkCF6zmMKvDV SdeN8kiebuJLGtOvErrblx WEKnlMbdylXiLw8bwJtiXO Y5TAvuB3iotH6tKvF5SVrp X4uvzE9wTJe5HScvzTY4HV JdaE5xJI2ilzswu6dqDcBl DP7rvzlwk8cyXgRdMU0xiq e6t4yrOnPaAE0ahpupg3md NzIwXGhlYWRlcnkwXGZvb3 IqunjvIGMhd0XmU5WzdHyk H12rpSzwP98vYXZahYuesE 8elMxlrT6xQdLpZsSjABwv bFxwbGFpblxmMFxmczIwXH BsYWluXGYxXGZzMjAgTFlN GTqyBi8JLMhrZ6NXY2RPRW 7RLTsdM4LXJWrLAmB9TTVZ VbTsTlpuO6aDFvmAXEEBFC nLIWCGI2HSPdLmCG9DMPAF OWhjKneEL0nwW0PpVUDBMR JBVEUpOlxwYXJcbHRycGFy XHFsXHBsYWluXGYwXGZzMj IgdOsjzR1nLlMrRnRtCEFx UX0fpb6eZ7ZTXKBBADCRR6 NCBZUGPoXTQcJNQXLRIL8K XHBhclx+OO2amc3aElNRFN ROAgFrJe7WTV7NZHCMSFCW FPCgMADPXRdPZM4HAAXNAU xTXHBhclxwYXJkXHNzcGFy FBX3hWDwbwJvqXlsfCmriR 5cZjBcZnMyMFxwbGFpblxm MVxmczIwIFx+CA7nnj7bTO CUEQRFZ4AtA4AcVVgRMKhf Yq7EHLXJWZ6WGNrDRbSrKO 9KKO7MWsYYI6GWOPoGKDWJ E8sHRTVBI4QDBCSXFmAUHR 8RECfzLRT3z1nvkEPvJZNx dGUxODAwMFxhbnNpXGRlZm unjualIAEwWLA2geQmEWVb UQdsLNJvLUnyHu1poVWnpE geDuPmFJLtk6kqirZYwbuf dQn1i4eqHWIqYhX5lBPbMF utD5psasBwaMNkJDOsQDi3 cU91CZXpaU1mlRTnNIbmkt OpSbJ2GLqdJXOjStK0WELz lUGlQRRxQ9anCSWrURyeBQ HwGJcdgPOfHOP0fQruw1S1 bGVzaGVldHtcZjBcZnMyMi CHi5TgQAx9kEjmK9PaPGTy UaA8vHWpCTZvKYgeOPKrLY HxmfD8lL49ONnioqD0uQCk x2Tlj07as780uG7jkUNcNE B0ITRoMYGbzMRoSVUvPNL9 AGBxiJCwP3xrIEWjCH6bxj ppAQrsMEtpLMBdyWY8YQUd vNXhI0YkLIEfWXioSEHmmr h1MhOrPd5giMVfhDqhEYdv h7fnr4smjYNtNns2REMoUy KrEugiSZhnp9Ift8oiWTZc cp5uFKP4uUIwhOthi5E8cL MmAENobKMvJXXyMH4jtRKg YKDxiK5ohsknITTsNrKffl qlLEPpvLjrxdEtPq3unRap ZLR5KBgmI8xwdJ4lCgX0UN bhB0qgbO6kNDm4VVhvAZCg pQA6ggV4VHTwlBYqO2XlqH 9kXZUgNI9svir6k6oyHSW2 CKlmMSNmKjR8noB0FUVcbY VxHXUqeXrxRKxhr630HEQ0 VdZrQKXmq5PuL7VktWgsG3 8phGbcQ93yDDBwcYskiP2d hEgqfU3eOnZtYoLoMMelnL dfGE2tGJMdB9ralCDtUGKo KCKmU3xgQhNqjS6dqXhuAT gakeWoWYEgRvi1BNFbjCAg HWJhTyv7KQXqMHQfH76ygi ntACL5mS4hv6ybj1RvWXqh DQA5INUya87bFUwenjD8LJ tdCm9xUeXcCUJ8PCnpJAM1 fQ== COMMENT (test code = y4jtfPEqRQWgjAMxFlNhOK 3359) UyLATll3xrPDOmoKYwBwLz MzNcZnRuYmpcdWMxXGRlZm Lwg1vlk545qJMzi0hvGYAz OdY1nXXnXNXhgNNdB765IR GtRPqza9nug8UxGCNhlCGb p2T4TEOHxfcqmOa1xKwaN2 7hv1H5WyskJ8twXQMvHIHg W5QbLY4dUWWgIux2GFP1ST Q3DUScQVBzV9BkMW3zQOBh uFVhIJk4i3ynlUjiHZOfWJ J0u6bqWIhuwfYhDN4mrp7o bWl9y5mvupIoPRBsZKGeaA EYXKHzV2IvrOngTk5kvPv1 dShrLzhpECP1Rtr5GV0aqy 11hkj8vAbaALNjgjqgQeA0 SYyjUXNtqawbYPc6SJhnHZ JnbDcyMFxtYXJncjcyMFxt YXJndDcyMFxtYXJnYjcyMF sfVBOjILS5JIist979XVI0 SIbyw3ikj5zluODpIol1EQ AqLqFsBdtpOHsnm8Qwk6bo ORJksk5oMSQ0yAYyyWjln0 B4xTVlTTVvdZDazzVwLBCs RaO9CXdhUB7mkd39QKIlVR U2sg3ceEMscMbuqzCpsWOb BBwdL1OrCJQzd571IOWmJ3 MbYXXjn9D0pwMuIzMmTYVg sUB7edA9EWXsBWp8oMIqyz U6gySfrPAeI1hxcW71EnXt nIKtH5VjaL92NnNzaOUwB8 RhpF67JrAltESeC8IzlG71 InMeoVMsKYNfnYNrZp1pdB UgzNIjv8VzcZMxHLhlD90k s461LTUsbpYuC3gfgOXpmc acwMHaocpfDWlpkuV9WOXw XHBsYWluXGYxXGZzMjBcbG FuZzEwMzNcaGljaFxmMVxk VyQrYWOyADyfZ0rqSgQcRg MyMFxwYXIgUGxlYXNlIGFs o42zv4AnAXN2xijeC6CaYD QwuBxypK6raXPzCWCwrnJb YnRcEFI3BtnoDX5eLQR8wS 1zWFTub4khD1anlhKeg1C6 fnUVScVfGYW6LDBzdeTyCT G5QK2yUHSthl3= CPT Code(s) (test code q1bqmYKxAKQvmSDhBtYcJY = 3357) TkTVQoz1ydQQEjsZEaMfYb MzNcZnRuYmpcdWMxXGRlZm Rol2kyv032eUQwr3chFARt TdR1iWLkQRBhqRSxK984v6 qoe5njhfRqeUP1CBCqIEA0 IWywrdFsooN1ETrfzZFaMw N2GOpmlmNnODvojiHbfhHt Pyo6FYIlX403OQU1bWuiq4 uwIKG1GGZqFQUkFvUxQd9b cOQqR502LSQjKTGRHFAehW g3SUYqyvUixbJedEZSe387 H420x7hpERVpbrRscDkKas kig0mvO143KVBumQYqucFc ZjUcGJLpbXJleTN0ABSjBG 3skmjvNnOgXH4bvuadMaNb SL0ypru7TiJkDO3jqrhuPo SaOMlwIJIqbestFQZne1Ck qcvkCK0aF2Lyf7X9xU8kyM FmRULdcBTvLhHvLSXaaj7o kIUdVZnjs0WlIKX4rbL2gL VmzHRcADZwDV61Tipaj8Ie HdisBMR4NXRwynEsm3Uis2 beXhOfyjSxR9nhB0TzAJDy USZvMDGuNtRcjvSvn3Imi6 OinCFmpEj9g6imPJUrSPIs uYskz0lxGPT0DAMkO6M7oO Cnx6jqJGcfKTBeyBL7uvot MVbvXUUtsfS8nckfUUwbCI MrwJS8ddkoGIyeZFInJbT4 tqgaIWeuGOAtSSU4GAapj4 45JUX1IGqhOgzmPGjoCURc bmNvbnRccGduZGVjXHBsYW luXHBsYWluXGYwXGZzMjRc uPotaMiawO7zYgZtCwMyBJ isII6zIIVrP1sorBWjIEGk IKXbZ8bkZrNndQ1icMeqFT vdgtDbSRg4XYafQIU6SOOo NVxwYXJ9 CLINICAL DATA (test c7fgrFGhJRBybQSkAjJaOU code = 335) ZuRDRod6hmFVWegDMsUrJy MzNcZnRuYmpcdWMxXGRlZm Sst0zyu481dDOss5lnUORa AdS6cKIcXBDkwQOsE216HU JiHImds2rcq3VvNHHneMQv o6G7NURWttrokLc5oOwsM7 2ni5Z5WyceD9ldHDBySRSm T6DuHW3dCSApWvg9BDA8TL L8IEAoUKBqC2QiPA9yANBs gMRcQPf4n9wfyYvtNRZjAW O4e2rxQNsjguXrOG8tps0g oHy6z7hqkwJfEIAtUUIztT FSDJGtA7WzoFgbRo9bsDe1 cIpeBtzpYDG9Csw7OW0ujr 01aai4aOdeXSJoehczQiM5 AVstJPPdtmlsNHq5ZSfuBN JnbDcyMFxtYXJncjcyMFxt YXJndDcyMFxtYXJnYjcyMF tcGPGpDRL7XThka457HLN8 WLywb9izy5humFMdYbm1ZA CcVlKtHnepMKsaa6Ufi3kc VZLihz9fEKU7mOHqyWraa0 N3zBJhQTMytNHjueGbXEGx AbX7JLylPN5hgs77NBBvJZ K6qz8anVXpoAczbpGnuUQt XOjnR6UtIGAhg583SWBlX5 GdZSUqk6O9beLqSqWsXXXl dJT1msA6RDCdYDd9mQGapu Y8pvWwbNNxC9gkxY44DfOm kDWaY1NjgG43QnUhzLWpN5 QfjE70TrRknGQcG9GbpH83 AcVicTQnVFKlvREfBc7wmV OquAZdw8AfzXHtZUpcI97c v602VWJphtMsA0vclVGvrr eevMWljefuNWwuypO5NTYw ucVkwHkmhT5cWuLaRsApZK fePQ1mICUxM7wfmKBuQICs HGFrT9ewLvRxaT6kbIigYX oxdiGbZOCjM8t6CJuia1Ii IGxvYmUgbWFzcywgbWVkaW WfjVjhWBreVRKyoi9yMZBh nYxlMAYid4ZjPDjuS4Zrs1 NhbiBvZiBjaGVzdFxwYXJ9 SPECIMEN SOURCE (test w7ggcICvWDSmuDJlGtYiUS code = 3377) PhFJKob2qlASYuaDXnJvWy MzNcZnRuYmpcdWMxXGRlZm Leh8ptm205lFSkn1qeOHZq SjL0mNKtTVEblNNjN477a0 kqn4qcrgWwsGI9HUNpUJP5 CFbnnvTsjyH0CGdhtLRfXr W7RRpopzXoEJotjdUantMl Ijf7VDWkI913AOG5gXsln8 pmNIA1YPPqGSRoUiCgZr8k cVDfK719UIAbAZUKFYFqoS g4OTKcagJhocExuHLJe766 C961t0wvNAPrnhOgzWjYzt qzb2ulD201PRJabBScbfVq DbFcMMIkqMSeoOI7FKMwOB 2mztroGpWsLB6xoamlXdQk AU2phze9GvLlOG7duoelVu SbZJmnOWKczacsFILaz5Lc iwgfJB4vW8Dth6Z6cN8uhC YqADOyxBNmIcSkSLIqcs7x mLLcBCqta3PtPRY4cbC6hJ NkvWVjSFRuBZ15Fjjib8Ef TuhtGPF1LLKmrbSfq1Bwp5 xdWvWgvpZoH8vyK5DqIZUr YEZhKLNdFeIbzuPhg9Szo1 LkvHBzgVq6g6ggFEQrQULu uTosq7zoSXE0ABXiR2S9tE Oaj0vnTFmzTEKkxFW6ydyf PAxaDGLcyzX7anvaYRncHL WdxPI9vtioDXseWWZzBzI4 rbkjIGoeXGIhGXO1ACmih8 81FWH9ZCavNicsWCdvWZWq bmNvbnRccGduZGVjXHBsYW luXHBsYWluXGYwXGZzMjRc dKcupWlqaM6sIpAmCeIvSL kdDE9zVHVqN7conPVnQVNh GIYiE3zcMhCjxB6tvDubQU snzyPiYVhGHALAEQ0VVFGt IFNVQkNBUklOQUwsIFNUQV YXD42bByOMAtAxwRDnsO== GROSS DESCRIPTION (test w2buoHLxWJSbbTEeGtJeHY code = 3366) JuNLIzw6ujAWAjoAPhBgPw MzNcZnRuYmpcdWMxXGRlZm Wfz0wne657pFJhk2wsQDCo VfY3eDWdRONiePPrT781UL TbSZbve3ovr0SqVWYdiFHk x1S6RYOPdecasJf5iDroC0 5bl2Z9YhcoN7yaCOCsZKsf YXLmXGvwmVMjISS3GSPjHL G5LYgwcgXtwhM5IJdubDGf KgP2TSe8d0osdDddLXAyJI S9i0umNNbwjhKiJH7rbp8p oRq7m1jktmPlZKWfPKBgmP OXJNZiY7MwbUemDs2bbUc5 vCclDoxoPKE8Upj3BN8zqp 30bcz1lJdqCRAyctxiUaL7 CSauKYBjufjmNBg5PNshDK JnbDcyMFxtYXJncjcyMFxt YXJndDcyMFxtYXJnYjcyMF fuXGEjHNA9QHwyl098ADJ6 KSyqf9nom0vngTNjJue7ZO OeBzXiGmimOGoyf2Iyt2el OWDkqn8cPHX1lKJzgFnat9 L2wPLgNSTjzGGqpiFrWDJv PpV3XMuoMD8gyp09QTSaYB Y8vp4adZSzzJrxwtFwwIRb ZYpaH7PxTMLop840LIIpW9 MlEZPlq7U7emZyCuFwRCXg yNS8egG6VNFeCZp4nWPesy L5dsJflNJpK1bghS66HyUx gFXlA6CeoE51UbZbdUDaY2 MapY81UrUouTQxC4ItiO27 VcEfcNWnXPVphIAuZc3wwU ZblIQhv0GarHWsGKaoA39f y117BGThqqCvR4dunDXwrz xwbGFpblxmMFxmczIyXHFs XHBsYWluXGYwXGZzMjJccG ygbM6pYsPbRhTiQwPQCAIr aXZlZCAzNSBtbCBccGxhaW 5cZjFcZnMyMiBjeXRvcmlj lCNhHSJzFft0GOJqeqJxn6 FtcGxlOyBwcmVwYXJlZCBj ITguFKRpr9BgJIIoBBAjzx VtWvYlbWWtt6HwxsSitFwe bA6iEnVqBrXyTkbaRHOrW8 9sbGVjdGVkOiAwNjAzMjBc gTFyEUAwU1KcrjPcUfTsUw AzMjBccGFyfQ== MICROSCOPIC DESCRIPTION p4xwoOFqMJVanJLqEsAjCJ (test code = 3371) ViWVOkz0gzJQIgrUMnNlOs MzNcZnRuYmpcdWMxXGRlZm Hrt8rqh941zBLem9uoKIKa NqR9bUEcLYJxfYJuY444j1 ykq8srllXkgDW3OZOnYAV0 GYfknmXiicO9TNncuRXrUm I7HHbdorVbHXlxvkBsiaRh Men0PAIyO192IBP1uQutq3 nbLAZ9NJDaSZIvCjMsHl7k aPNeL284NHDnIFNJBELijR a0KCGtcyQgmtFynGNDv331 J028r2leTAPqolJoyKqClh uds0mwB407XGWcgDDswyXw JxSvJMFsnSOiuFG3TOFkIE 3lbruzXhLyYR5dvfhkUkZz DP2ipbb8MjDhXU8gkuqsAn VzXFwsKZLjxgyuWPOac1En fbciJS1mE5Egj1W1bN4ncV PcLLTgbMDtOvBdWTFasc4e aVKwELlmy4EdHWE5beF0tB PvsOKwMEFsZR01Noegr5Er QzyiKJP0BVCmmfDyg4Ctd9 dyImBzewHoM7yrZ0BnBSOb TRLiPGDfCpPxdmEmk4Ykm0 LxgEAbbQn2l2saZHQkEJPl jCcnr4edKYA0JEEaO2Z3bS Qfk9hiDXeoQBEbtPQ1ytkt SNzfKTQlutF2rfajSDbzZB UadVN5nnqlDDkdJLWiKwA1 xweiCOasDIKdMSA6RThuv4 35KDT0OUrsYjtvWUtvVBTc bmNvbnRccGduZGVjXHBsYW luXHBsYWluXGYwXGZzMjRc bAcczWqvzY7tYzThSlUzVX ybPS7qDAWlB9rvtYKqERPp IBTcJ0twVhIbrH8ikInyUD reqhIsPJKgvkEqvh8dRO5t cGFyfQ== SPECIAL STUDIES (test r5hnxVNpKHNzc7xsCIWofX code = 3376) FuZzEwMzNcZnRuYmpcdWMx VElquoUzBMsvd1KzJ1IaFi AwMFxhbnNpXGRlZmxhbmcx LMReAKK9baTxFIVvAFqcGG EkPAuvEm0qrPGjqDoqIwIc FAHza8soxjXIgilyqLv6h6 tgNVGfEyF9jDYbSUcyO9gq cyCfnPArX2HueCNegTd3g5 tnUyZiHnN0cFFkFDogO8jm xdGduKDiZKJkDSm6aJ62JB PffX5qlWKlSFxxxzKpNjM9 HHjzRBWvDyZ4MRTdnDIeIE RvZ3urQVNjVZgdIAFrQDnj bEHzCYL2gXxrg2T3jIQdzH TvoDgjPuVfZkAhQiFBq2Bd URk4rQtqJ2DbPQZxTdI1qA QgUGFyYWdyYXBoIEZvbnQ7 oYcdomGbc11gmQHyBUZiIR TvCsAxsMtlXUPuKEHQv0Pg jIzeCIF4cEh1hXkrSxdjAS G7Nao0SD3qwk54kht8fZgc DIPwumcjPkH5JAjpDVUmsk gzEUu9IQkdZLJftOC7WBYy hQHtA0ZvTCAfWR2drwc7BN U4ZMipJGHkCaB6HZWtpTLa XTSppZftJIbew855TXF4Pv ZdQC4lO9Tgb8R1mE9kaXHy EXTprNTkLwAvASQnqz1joP KxXWfgc1YwJRQ6ysU6yLLj xBYtSQVfBE12Yuatr3AsJn rmz7UhY99twJK5EXeqf9ri IC5tOgK7pnNpPCvkq8hgpA 9jMwX3NFscKW9eNL2gYLUq vY5lcimhLSShRhLkrfxxXY IjoDoxqzHxOa8aqWljFMY6 WXerF6jqxC2kQhT2JFghC3 qtvK9aNXw3RRkfsRR0YENt fN8xFY4bgbqiz4ctELyfEG udXWRohwZ1dvT0YYBkcMEq W8RysH0qUFLgDG2yexfye2 pvQOL9NDfaNRVrZWM3GwYj VQDph5Vrppf8OmUsa4XfhK CuKRqmC45lj928HNMaqjGe V6rciBByuksssXPufkdtLJ vajxC3IREmOYOpKJpoBZCi XGZzMjJcbGFuZzEwMzNcaG ljaFxmMVxkYmNoXGYxXGxv F4oaTuZtE2FvPVIsGoCmSL qjWBbtaHMuaUConDI4mO3w XH8rQYPfuHMeM7WuQKWzak AipFSkXYV0aMSajSTuWY9r MOlsbYPkd5fbw8KzB5xiwG butUB5PR4aLDQbRHCwWLjn r0VadX8pNetacXKyeskvMC xmczIyXGxhbmcxMDMzXGhp P4mwEjIqFUJjmJroZOlpn2 NoXGYxXGNmMlxmczIyXGx0 cmNoXHBhclxwYXJccGxhaW 3kAuYlYiXpEculQP3uQDAl M5eliJFkVMIyFEArP8oaTj LevE3emJvxHCdoDuGqXpPx RoXUh371xv5mFGOaaVJjae AHhDWurK7jAOcbLHwrMPpj gEPpFNqaf3trYMKif0t2fN OaYTJtlhYpz1oiMSucbcKc FRFjqXAaqLQeDBEfu73hHQ kvmUrtwJkvWCLxs7XmeYow a3UiVlGxKGvmb9JiL75thL JvbCBzbGlkZXMgcnVuIGFs t73dn0wvYGSxExK9jHCuqR R5jTEkeCHcx9MdzCknGZMw r0txCOSnij7oaanycIWbs5 QvvA4fajynOAjkpVTqeyIf JUZmb7h2wHOsVDKxBJDfHL nthHo8RNBcv652qu5jypJ6 aUIlMOA0IXqqSSLiXBZbiy UgZXZhbHVhdGVkXHBsYWlu XGYxXGZzMjJcbGFuZzEwMz NcaGljaFxmMVxkYmNoXGYx XHjtV8byLvAaS5TcSPYbFx UsgTGoX0ayiKGaHXRaQInm XGYxXGZzMjJcbGFuZzEwMz NcaGljaFxmMVxkYmNoXGYx DDswU1ckTiFwO0OxLXWpCs IgIFxwbGFpblxmMVxmczIy KYophbhoXZFvXGytU4hkPy HgXUIssNtoBZzfj5EsLUOf ONInIcusnhDbOOu9zqUcYP BhclxwbGFpblxmMVxmczIy BGatovyfIISrTNmzW3lqHp EbEEPpoCvfHOycd1VpNEPd XGNmMlxmczIyIEltbXVub2 rzf5StJ1stxKrnyLU2ILDj F6hklYFwpOF6QOZ4xK4lVP qwatRgUULrq1ImYFTaNARo AsI4xO3uUMH6EbCPzDteSK BsYWluXGYxXGZzMjJcbGFu ZzEwMzNcaGljaFxmMVxkYm UmHUFgJKwtS1keVmXfN9Yr JLCiGqTdgPxpYAdhOFj4Ig xwbGFpblxmMVxmczIyXGxh fqfmJLFiTRlwN4dkDiQyTQ OyvLxmMTdvr9OiMMExNYWn MlxmczIyIHMgTWVkaWNhbC DSEJ30DJFsIROyzIkegA8w fHFQTHYwtfQ8w4A4CEaiXJ AnCGj4JWgnryQxPXLmqD5a LTIkID0yCFc3taUyQHYru8 QtHU3qTZGdpBBkRRC5PTGo k9JiW6Mly7JyMKRfVZRtdq 4bnbFcReWVdXInYSBhfm68 VURoXC2rE1wpINPbKBEdav BjhOIyt2AjKKNhaSM9vJHu TZ5QQtRRo90xCSPbHNSUzd QyZYClkPkfwJO7ffJ0dN7z LiBUaGUgRkRBIGhhcyBkZX Dgni6adbXrNYWlKBBke7Be hMNfnVOjzsOcI4Grz4BiZT Kqbm80UHgzgQGiyy32VZ5j S1Rez6LslV0qGSzyVBMru6 WxgHXlvTCgZENaw6WtE6no hhvxMJmkoMEobK5aXIEsWJ y8NLHbc9PnOTMrn6WtUxGh lxJiSJTnUBQmSSXveT04HH R7qQlxeYkkgdQvNS7uGYIz dtZiJXLoZOHksD2bUZexcf BnVOIxbeZ7t4B4PUwyLPIf zpMkLlyfBTW9plOefyI6dT AnP5cgxlpzFXmtGWMps6Oa sU1ifFQZeDEnp4PhkACleO ERuQUcUR0gilRvSF6tCKM4 ODggKENMSUEtODgpIGFzIH W0SLwdIhlcZFM1efMeOZXv w9YlRNzeQ1jxU89zlXuxnU i0gHIlcSvzhNVtnVGyULWz pwD3w3X5KJDnj3NppohxOO BsYWluXGYyXGZzMjJcbGFu ZzEwMzNcaGljaFxmMlxkYm YlYUEhYJsoQ1gtNuHmQuKo OatpXCC3zC== Gross assessment was [facility] performed at ([facility], = 2777) Department of Pathology, [address] [place] [address], Technical component was [facility] performed at ([facility], = 2773) Department of Pathology, [address] [place] [id number], Professional component [facility] was performed at ([facility], code = 2779) Department of Pathology, [address] [place] [address], [facility] BY [id number] 15:40:00 Medical Cytology Report Case: [id number] Authorizing Provider: Luis Alberto Santiago MD Collected: 11/07/2019 04:11 PM Ordering Location: [place] [address] CC Received: 11/07/2019 05:12 PM Pathologist: Berenice Eng MD Specimen: Lymph Node, Subcarinal, Station 7 LYMPH NODE, SUBCARINAL, STATION 7, FNA BY CLINICIAN (CYTOSPINS AND CELL BLOCK OF ASPIRATE): - SATISFACTORY FOR EVALUATION - NEGATIVE FOR METASTATIC MALIGNANT CELLS - EVIDENCE OF LYMPH NODE SAMPLING (POLYMORPHOUS LYMPHOID TISSUE PRESENT) Signing Pathologist Direct Phone Line: [phone] signed by Berenice Eng MD on 11/08/2019 at 3:40 PMPlease also see surgical pathology report [id number] and cytopathology reports [id number] and 1350. [id number], [id number] lower lobe mass, mediastinal adenopathy, abnormal CT scan of chestLYMPH NODE, SUBCARINAL, STATION 7 FNAReceived 35 ml cytorich red fixative sample; prepared cell block(A2) and 2 cytospinsCollected: [id number]: [id number].The interpretation of this case included the use of immunohistochemistry or special stains.Control Slides Examined: In-house known positive controls were evaluated along with the test tissue. These control slides run alongside of the patients sample show appropriate staining. Internal positive and negative controls when available are evaluated Immunohistochemistry technical testing was performed at [facility], Pathology Laboratory where it was developed and [...] qualified to perform high complexity clinical laboratory testing.[facility], Department of Pathology, [address] [place] [address], [facility], [facility], [address] [place] [address], [facility], Department of Pathology, [address] [place] [address], ZCEZ NEEDLE ASPIRATE BY [id number] 15:39:00Medical Cytology Report Case: [id number] Authorizing Provider: Luis Alberto Santiago MD Collected: 11/07/2019 04:11 PM Ordering Location: [place] [address] CCU Received: 11/07/2019 05:12 PM Pathologist: Berenice Eng MD Specimen: Lymph Node, Lower Paratracheal, Left, Station 4L LYMPH NODE, LOWER PARATRACHEAL, LEFT, STATION 4L, FNA BY CLINICIAN (CYTOSPINS AND CELL BLOCK OF ASPIRATE): - SATISFACTORY FOR EVALUATION - NEGATIVE FOR METASTATIC MALIGNANT CELLS - EVIDENCE OF LYMPH NODE SAMPLING (POLYMORPHOUS LYMPHOID TISSUE PRESENT) Signing Pathologist Direct Phone Line: [phone] signed by Berenice Eng MD on 11/08/2019 at 3:39 PMPlease also see surgical pathology report [id number] and cytopathology reports [id number] and 1349. 80947, [id number] lower lobe mass, mediastinal adenopathy, abnormal CT scan of chestLYMPH NODE, LOWER PARATRACHEAL, LEFT, STATION 4L FNAReceived 36 ml cytorich red fixative sample; prepared cell block(A2) and 2 cytospinsCollected: [id number]: [id number].The interpretation of this case included the use of immunohistochemistry or special stains.Control Slides Examined: In-house known positive controls were evaluated along with the test tissue. These control slides run alongside of the patients sample show appropriate staining. Internal positive and negative controls when available are evaluated Immunohistochemistry technical testing was performed at [facility], Pathology Laboratory where it was developed and [...] asqualified to perform high complexity clinical laboratory testing.[facility], Department of Pathology, [address] [place] [address], [facility], Department [facility], [address] [place] [address], [facility], Department of Path[facility], [address] [place] [address], SRYOI [id number] 14:00:00 Test Item Value Reference Range Interpretation Comments CULTURE (BEAKER) (test No growth in 5 days code = 1095) BLOOD [id number] 14:00:00 Test Item Value Reference Range Interpretation Comments CULTURE (BEAKER) (test No growth in 5 days code = 1095) POCT-GLUCOSE [id number] 11:28:00 Test Item Value Reference Range Interpretation Comments POC-GLUCOSE METER 197 mg/dL 70-110 H : TESTED A T [facility] 6720 (BEAKER) (test code = [facility] Zenaida [place], 1538) [address]: Recycling Manager/Techni sophie ID = [id number] for DEBORAH HENRIQUEZ POCT-GLUCOSE [id number] 07:49:00 Test Item Value Reference Range Interpretation Comments POC-GLUCOSE METER 85 mg/dL 70-110 : TESTED A T [facility] 6720 (BEAKER) (test code = [facility] Zenaida [place] [facility], 1538) [address]: Recycling Manager/Techni sophie ID = [id number] for DEBORAH SANDRA [id number] 03:51:00 Test Item Value Reference Range Interpretation Comments MAGNESIUM (BEAKER) 2.2 mg/dL 1.6-2.6 Specimen slightly (test code = 627) hemolyzed Recycling Manager ID - WIBIVVJEKFHO7493-28-53 03:51:00 Test Item Value Reference Range Interpretation Comments PHOSPHORUS (BEAKER) 3.6 mg/dL 2.3-4.7 Specimen slightly (test code = 604) hemolyzed Recycling Manager ID - LABASIC METABOLIC [id number] 03:51:00 Test Item Value Reference Range Interpretation [...] S NOT APPLICABLE FOR DIALYSIS PATIEN TS. Recycling Manager ID - LACBC W/PLT COUNT & AUTO [id number] 03:39:00 Test Item Value Reference Range Interpretation [...] (BEAKER) (test code = 2801) Histoplasma antigen, [id number] 22:30:00 Test Item Value Reference Range Interpretation Comments Histoplasma <0.2 ng/mL REFERENCE RANGE : <0.2 Antigen (test ng/mL Histopla sma code = 3947516) galactomanna n is frequently dete ctedin urine from carey ents with disseminatedhis toplas mosis. However, a negative result doesnot exclude a diagnosis of histoplasmosis. Manypatients wi th acute pulmonary disease or chroniccavitary disease do not exhibit antigenuria.Alberto kumarens from patients w ith other endemicfu ngal infections, suc h as blastomycosis,p aracoc cidioidomycosis , or candidiasis, andria sethi alsobe positive in this assay. Thi s test should be used in conjunction wit h otherdiagnostic s tests, includin g culture, molecularassays , and histology in andria pruitt a final diagnosis . FAIZA (test code = Performing Lab FAIZA) *[employer] [address] [place] [phone] Nivia Rodriguez MD [facility] CenterAspergillus galactomannan [id number] 20:01:00 Test Item Value Reference Range Interpretation Comments Aspergillus Index <0.50 Value (test code = 2645) Aspergillus NOT DETECTED REFERENCE RANGE : Antigen (test code <0.50, NO T = 87813-8) DETECTED A negative result does not exclud e invasiveaspergi llo sis. Follow-up testing may be indicatedfor high-risk patients. FAIZA (test code = Performing Lab FAIZA) *[employer] [facility] [address] [place] [address] Nivia Rodriguez MD [facility] CenterEBUS FNA [id number] 19:01:00 Test Item Value Reference Range Interpretation Comments Cytology (test code = See Separate Report 2629) [facility] Center[facility] [id number] 19:01:00 Test Item Value Reference Range Interpretation Comments CYTOLOGY RESULT POINTER See Separate Report (BEAKER) (test code = 2629) EBUS FNA [id number] 19:01:00 Test Item Value Reference Range Interpretation Comments CYTOLOGY RESULT POINTER See Separate Report (BEAKER) (test code = 2629) EBUS FNA [id number] 19:01:00 Test Item Value Reference Range Interpretation Comments CYTOLOGY RESULT POINTER See Separate Report (BEAKER) (test code = 2629) Glucose Pleural [id number] 15:16:00 Test Item Value Reference Range Interpretation Comments Glucose, 131 mg/dL Reference rang e Pleural Fluid approximates t hat (test code = found in serum. 2346-5) FAIZA (test code Performing Lab = FAIZA) [employer] [place] [address] [place] [address] Clarissa Zavala MD, PhD, SHELLIE [facility] CenterLactate Dehydrogenase (LD), Pleural [id number] 15:16:00 Test Item Value Reference Range Interpretation Comments Lactate 102 U/L See Note: Reference Dehydrogenase (LD), Range:TR ANSUDATE Pleural Fluid (test : <113E XUDATE: code = 19097-3) >113 FAIZA (test code = Performing Lab FAIZA) [employer] [place] [place] [address] Clarissa Zavala MD, PhD, SHELLIE [facility] Centerfungitel2020-06-03 14:44:00 Test Item Value Reference Range Interpretation Comments Scan Result (test code = 0677327) <31 [facility] CenterMISCELLANEOUS LAB [id number] 14:44:00 Test Item Value Reference Range Interpretation Comments SCAN RESULT (test code = 7334748) <31 [id number] 10:12:00 Test Item Value Reference Range Interpretation Comments MAGNESIUM (BEAKER) (test code = 2.4 mg/dL 1.6-2.6 627) Recycling Manager ID - DONNA MCINTOSH, [id number] 08:53:00 Test Item Value Reference Range Interpretation Comments ABO Grouping (test code = 2588) A Rh Factor (test code = 2589) [facility] [id number] 06:03:00 Test Item Value Reference Range Interpretation [...] S NOT APPLICABLE FOR DIALYSIS PATIEN TS. Recycling Manager ID - PIAYA LCBC W/PLT COUNT & AUTO [id number] 05:59:00 Test Item Value Reference Range Interpretation [...] 0-1 PERCENT (BEAKER) (test code = 2801) [id number] 05:52:00 Test Item Value Reference Range Interpretation Comments PARTIAL THROMBOPLASTIN TIME 35.2 seconds 22.5-36.0 (BEAKER) (test code = 760) PROTHROMBIN TIME/[id number] 05:51:00 Test Item Value Reference Range Interpretation [...] 450 K/CU MM MPV (test code = 40970-7) 9.6 fL 9.4-12.4 nRBC (test code = 413) 0 0- 0 /100 WBC Lab Interpretation (test code = Abnormal 06905-5) [facility] CenterCBC (HEMOGRAM ONLY)2019-11-07 05:38:00 Test Item Value Reference [...] = 413) RAD, CHEST, 1 VIEW, NON [id number] 17:50:00Reason for exam:->PICCShould this be performed at [...] are seen in the spine. Signed: Chris Ramoseproberto carlos Verified Date/Time: 11/06/2019 17:50:04 Reading Location: [address] Radiology Reading Room CT, CHEST, WITHOUT [id number] 17:38:00FINAL REPORT CT of the Chest dated [...] Green Verified Date/Time: 11/06/2019 17:38:38 Reading Location: [address] Body Reading Room CT chest without [...] MDReport Verified Date/Time: 11/06/2019 17:38:38 Reading Location: [facility] C013Y CT Body Reading Room Electronically signed by: MAYELA GREEN M.D. on11/06/2019 05:38 [facility] CenterPOCT[facility] [id number] 17:27:00 Test Item Value Reference Range Interpretation Comments POC-GLUCOSE METER 109 mg/dL 70-110 : TESTED A T [facility] (FOSTER) (test code = CRISTA Estevez [facility], 1538) [address]: Recycling Manager/Techni sophie ID = [id number] for DEBORAH HENRIQUEZ Pulmonary Funct Lab Lnvlgbxigy3052-23-78 14:45:00Tosin Chavez, FAMILY LAW PARALEGAL, SITE ENGINEER 11/06/2019 3:21 [facility] PFT CHARTING REPORT Infection Control/Hand Hygiene procedures followed throughout the encounter with patient: YesPatient Identification Method: Patient name verified on armband, and Medical record on armband, Is the order complete?: Yes Account ID#: [id number] Name: Arthur Nunez Birthdate: Age: 89 y.o. Sex: male Admission Date: [...] patient released from the lab without adverse outcome.[facility] CenterMAGNESIUM2020-06-02 13:58:00 Test Item Value Reference Range Interpretation Comments MAGNESIUM (BEAKER) (test code = 2.3 mg/dL 1.6-2.6 627) Recycling Manager ID - PIAYA LBASIC METABOLIC [id number] 13:58:00 Test Item Value Reference Range Interpretation [...] S NOT APPLICABLE FOR DIALYSIS PATIEN TS. Recycling Manager ID - PIAYA LPOCT-GLUCOSE [id number] 11:51:00 Test Item Value Reference Range Interpretation Comments POC-GLUCOSE METER 159 mg/dL 70-110 H : Notified RN/: (FOSTER) (test code = TESTED AT [facility] 6731 9204) [facility], [address]: Recycling Manager/Techni sophie ID = [id number] for DEBORAH HENRIQUEZ Carotid doppler [id number] 10:23:48Ejection FractionSLEH ECHO HEARTLAB MKCKESSON CPACSRight Impression1. [...] of Study 11/05/2019 Age 89 Visit Number [id number] Gender Male Accession Number [id number] Date of 1930 Referring Gabriel Streeter, Room Number 6210 Physician Aviation Maintenance Instructor Philipp Martinez Interpreting Reshma Bal T Physician ProcedureType of Study: Cerebral: Carotid, CAROTID [...] + + + - Additional Measurements:ICAPSV/CCAPSV 0.77.ICAEDV/CCAEDV 1.1.[facility] CenterBody fluid culture + gram [id number] 08:41:00 Test Item Value Reference Range Interpretation Comments Result (test code = 6463-4) No growth Gram Stain Result (test No organisms seen code = 1123) [facility] FLUID CULTURE + GRAM [id number] 08:41:00 Test Item Value Reference Range Interpretation Comments CULTURE (BEAKER) (test code No growth = 1095) GRAM STAIN RESULT (BEAKER) 4+ WBCs (test code = 1123) GRAM STAIN RESULT (BEAKER) No organisms seen (test code = 66408) POCT-GLUCOSE [id number] 07:41:00 Test Item Value Reference Range Interpretation Comments POC-GLUCOSE METER 104 mg/dL 70-110 : TESTED A T [facility] (BEAKER) (test code = CRISTA SH[place], 1538) [address]: Recycling Manager/Techni sophie ID = [id number] for BE LL, BEAULA [id number] 04:43:00 Test Item Value Reference Range Interpretation Comments MAGNESIUM (BEAKER) (test code = 2.3 mg/dL 1.6-2.6 627) Recycling Manager ID - TANNERSHER LBASIC METABOLIC [id number] 04:43:00 Test Item Value Reference Range Interpretation [...] S NOT APPLICABLE FOR DIALYSIS PATIEN TS. Recycling Manager ID - PEACE LRAD, CHEST, 1 VIEW, NON [id number] 04:25:00Reason for exam:->pleural effusion. s/p thoraShould this [...] decreased. There is no pneumothorax. Signed: Mario Bills MDReport Verified Date/Time: 11/06/2019 04:25:16 Vancomycin level, [id number] 04:14:00 Test Item Value Reference Range Interpretation Comments Vancomycin Tr (test code = 23.1 ug/mL 10-20 H 4092-3) FAIZA (test code = FAIZA) Recycling Manager ID - PIAYA L Lab Interpretation (test Abnormal code = 29048-7) [facility] CenterVANCOMYCIN LEVEL, [id number] 04:14:00 Test Item Value Reference Range Interpretation Comments VANCOMYCIN TROUGH (BEAKER) (test 23.1 ug/mL 10.0-20.0 H code = 522) Recycling Manager ID - PEACE LCBC (HEMOGRAM ONLY)2019-11-06 03:59:00 [...] (test code = 413) CT, BRAIN, WITHOUT [id number] 23:24:00FINAL REPORT EXAM: CT head without contrast. [...] further evaluation as clinically warranted. Signed: Mario Bills MDReport Verified Date/Time: 11/05/2019 23:24:44 CT brain without IV [id number] 23:24:00Interface, External Ris In - 11/05/2019 11:26 [...] further evaluation as clinically warranted. Signed: Mario Bills MDReport Verified Date/Time: 11/05/2019 23:24:44 [facility] CenterPOCT-GLUCOSE [id number] 18:35:00 Test Item Value Reference Range Interpretation Comments POC-GLUCOSE METER 103 mg/dL 70-110 : TESTED A T [place] [address] ([employer]) (test code = ARIELAAZ Zenaida [facility], 1538) [address]: Recycling Manager/Techni sophie ID = [id number] for CO MATT HOLLEY [id number] 13:42:00Medical Cytology Report Case: [id number] Authorizing Provider: Gabriel Streeter MD Collected: 11/03/2019 04:44 PM Ordering Location: [place] [address] CCU Received: 11/05/2019 09:25 AM Pathologist: Lala Jimenez MD Specimen: Pl eural, Right PLEURAL, RIGHT, FLUID (CYTOSPINS): - NEGATIVE FOR MALIGNANCY - Reactive mesothelial cells present in a background of marked acute inflammation Signing Pathologist Direct Phone Line: [phone] signed by Lala Jimenez MD on 11/05/2019 at 1:42 [id number] pleural effusion; HTN, CVA, and aortic stenosis transferred from OSH with lower extremity swelling, weakness, and dyspnea with denial of fevers, cough, dysuria, or diarrhea. Hospital course identified depressed LV function consistent with CHF exacerbationPLEURAL, RIGHT, FLUIDReceived 1300 ml yellow fluid; prepared 4 cytospinsCollected: [id number]: [id number]Health [facility], Department of Pathology, [address] [place] [address], [facility], Department ofPathology, [address] [place] [address], [facility]mH[facility],Department of Pathology, [address] [place] [address], UVOO [id number] 12:51:00 Test Item Value Reference Range Interpretation Comments Result (test code = 6463-4) No MRSA isolated [facility] CenterMRSA [id number] 12:51:00 Test Item Value Reference Range Interpretation Comments CULTURE (BEAKER) (test code No MRSA isolated = 1095) [id number] 12:25:00 Test Item Value Reference Range Interpretation Comments MAGNESIUM (BEAKER) 2.5 mg/dL 1.6-2.6 Specimen slightly (test code = 627) hemolyzed Recycling Manager ID - NTPBASIC METABOLIC [id number] 12:25:00 Test Item Value Reference Range Interpretation [...] S NOT APPLICABLE FOR DIALYSIS PATIEN TS. Recycling Manager ID - NTPPOCT-GLUCOSE [id number] 11:48:00 Test Item Value Reference Range Interpretation Comments POC-GLUCOSE METER 108 mg/dL 70-110 : TESTED A T [facility] ([place]STER) (test code = [place], 1538) [address]: Recycling Manager/Techni sophie ID = [id number] for AG NICK P[place] CT, CTA [id number] 11:32:00Addendum BeginsREPORT STATUS:A I agree with the [...] Verified Date/Time: 11/05/2019 11 :32:40 Reading Location: [address] Radiology Reading RoomAddendum EndsFINAL REPORT CT [...] measures 7.6 and 8.7 mm, respectively with bnve-ok-vxbmupvm tortuosity and mild calcific atherosclerosis present. The [...] dictated regarding the non-vascular findings by the Nickel Operator Radiologist. Signed: Annie Gaudencio MDRamyort Verified Date/Time: 11/04/2019 09:18:32Reading Location: [place] [address] CT Reading Room , CTA, [id number] 11:32:00Addendum BeginsREPORT STATUS:A I agree with the [...] on futurefollow-up examinations is recommended. Signed: Russ Gilbertort Verified Date/Time: 11/05/2019 11 :32:40 Reading Location: [address] Radiology Reading RoomAddendum EndsFINAL REPORT CT [...] measures 7.6 and 8.7 mm, respectively with bvdv-nd-mxuldzgw tortuosity and mild calcific atherosclerosis present. The [...] dictated regarding the non-vascular findings by the Nickel Operator Radiologist. Signed: Gaudencio Valenciaeport Verified Date/Time: 11/04/2019 09:18:32Reading Location: [place] [address] CT Reading Room -GLUCOSE [id number] 07:28:00 Test Item Value Reference Range Interpretation Comments POC-GLUCOSE METER 109 mg/dL 70-110 : [facility] (test code = [place]ELADAVIDE [place], 1538) [address]: Recycling Manager/Techni sophie ID = [id number] for NICK LEON [id number] 06:09:00 Test Item Value Reference Range Interpretation Comments MAGNESIUM (BEAKER) 2.2 mg/dL 1.6-2.6 Specimen slightly (test code = 627) hemolyzed Recycling Manager ID - PIAYA LBASIC METABOLIC [id number] 06:09:00 Test Item Value Reference Range Interpretation [...] S NOT APPLICABLE FOR DIALYSIS PATIEN TS. Recycling Manager ID - PIAYA LPT/[id number] 04:54:00 Test Item Value Reference Range Interpretation [...] WBC 0-0 (BEAKER) (test code = 413) [id number] 21:19:00 Test Item Value Reference Range Interpretation Comments MAGNESIUM (BEAKER) 2.2 mg/dL 1.6-2.6 Specimen slightly (test code = 627) hemolyzed Recycling Manager ID - PEACE LBASIC METABOLIC [id number] 21:19:00 Test Item Value Reference Range Interpretation [...] S NOT APPLICABLE FOR DIALYSIS PATIEN TS. Recycling Manager ID Aspen HAND LPOCT-GLUCOSE [id number] 17:09:00 Test Item Value Reference Range Interpretation Comments POC-GLUCOSE METER 128 mg/dL 70-110 H : TESTED A T [facility] 6720 (BEAKER) (test code = [place], 1538) [address]: Recycling Manager/Techni sophie ID = [id number] for BE DAVID ONEILLAUESEQUIEL ECG 12 [id number] 17:03:34Interface, External Ris In - 11/04/2019 5:03 PM CDTVentricular Rate 93 BPMAtrial Rate 93 BPMP-R Interval 158 msQRS Duration 148 msQ-T Interval 424 msQTC Calculation(Baness) 527 msP Krum 54 degreesR Krum 2 degreesT Krum 153 degreesSinus rhythm with Premature supraventricular complexesLeft bundle branch blockAbnormal ECGNo previous ECGs availableConfirmed by MD Anderson Roberto ([id number]) on 11/04/2019 5:03:32 [facility] CenterMAGNESIUM2020-05-31 14:15:00 Test Item Value Reference Range Interpretation Comments MAGNESIUM (BEAKER) 2.5 mg/dL 1.6-2.6 Specimen slightly (test code = 627) hemolyzed Recycling Manager ID - PIAYA LBASIC METABOLIC [id number] 14:15:00 Test Item Value Reference Range Interpretation [...] S NOT APPLICABLE FOR DIALYSIS PATIEN TS. Recycling Manager ID - PIAYA LPOCT-GLUCOSE [id number] 12:09:00 Test Item Value Reference Range Interpretation Comments POC-GLUCOSE METER 160 mg/dL 70-110 H : TESTED A T [facility] 67[facility] (BEAKER) (test code = [place], 1538) [address]: Recycling Manager/Techni sophie ID = [id number] for BE LL, BEAULA CTA abdomen & [id number] 09:18:00Interface, External Ris In - 11/05/2019 11:34 [...] MDReport Verified Date/Time: 11/05/2019 11:32:40 Reading Location: [address] RadiologyReading RoomAddendum EndsFINAL REPORT CT angiography [...] to the contrast sheet scanned in the Vennli system for the amount and route of [...] measures 7.6 and 8.7 mm, respectively with ednm-gx-deaergjw tortuosity and mild calcific atherosclerosis present. The [...] dictated regarding the non-vascular findings by the Nickel Operator Radiologist. Signed: Gaudencio Valencia MDReport Verified Date/Time: 11/04/2019 09:18:32 Reading Location: [place] [address] CT Reading Room [facility] CenterCT[facility] [id number] 09:18:00Interface, External Ris In - 11/05/2019 11:34 [...] MDReport Verified Date/Time: 11/05/2019 11:32:40 Reading Location: [address] RadiologyReading RoomAddendum EndsFINAL REPORT CT angiography [...] measures 7.6 and 8.7 mm, respectively with qlcd-hm-oxhrwazd tortuosity and mild calcific atherosclerosis present. The [...] dictated regarding the non-vascular findings by the Nickel Operator Radiologist. Signed: Gaudencio Valenciaort Verified Date/Time: 11/04/2019 09:18:32 Reading Location: [place] [address] [address] Reading Room [facility] CenterPOCT-GLUCOSE [id number] 07:42:00 Test Item Value Reference Range Interpretation Comments POC-GLUCOSE METER 106 mg/dL 70-110 : TESTED A T [facility] (BEAKER) (test code = CRISTA Estevez [facility], 1538) [address]: Recycling Manager/Techni sophie ID = [id number] for BE LL, BEAULA RAD, CHEST, 1 VIEW, NON [id number] 04:25:00Reason for exam:->post right thoracentesisShould this be [...] than left.There is no pneumothorax. Signed: Mario Billsort Verified Date/Time: 11/04/2019 04:25:22 [id number] 03:17:00 Test Item Value Reference Range Interpretation Comments MAGNESIUM (BEAKER) 1.9 mg/dL 1.6-2.6 Specimen slightly (test code = 627) hemolyzed Recycling Manager ID - PIAYA LBASIC METABOLIC [id number] 03:17:00 Test Item Value Reference Range Interpretation [...] S NOT APPLICABLE FOR DIALYSIS PATIEN TS. Recycling Manager ID - PIAYA LCBC (HEMOGRAM ONLY)2019-11-04 02:51:00 [...] 0-0 (BEAKER) (test code = 413) POCT-GLUCOSE [id number] 22:36:00 Test Item Value Reference Range Interpretation Comments POC-GLUCOSE METER 148 mg/dL 70-110 H : TESTED Elly Glaser [facility] ([place]) (test code = [place], 1538) [address]: Recycling Manager/Techni sophie ID = [id number] for MCKENNA ISRAEL 2D Echo W/Doppler(CW/PW/Color)2019-11-03 19:24:55Ejection FractionSLEH ECHO HEARTLAB MKCKESSON CPACSInterface, External Ris In - 11/03/2019 7:25 PM C DTTransthoracic Echocardiography Report (TTE) Demographics Patient Name ARTHUR NUNEZ Date of Study 11/02/2019 Gender Male Visit Number [id number] Race Unknown Room Number 6210 Number Date of 1930 Referring Physician Gabriel Streeter MD Age 89 year(s) Aviation Maintenance Instructor Jose Ramon Salas Radio/Tv Technician Caprice Lorenz Interpreting Gabriel Streeter MD Physician [...] TR Velocity: 2.97 m/s TR Gradient: 35.2 mmHgSeton Medical CenterProtein, Total, Pleural [id number] 19:17:00 Test Item Value Reference Range Interpretation Comments PROTEIN, TOTAL, PLEURAL FLUID (test 2.4 g/dL code = 2882-9) [facility] CenterPROTEIN, TOTAL, PLEURAL [id number] 19:17:00 Test Item Value Reference Range Interpretation Comments PROTEIN, TOTAL, PLEURAL FLUID 2.4 g/dL (BEAKER) (test code = 8999759) U/S, [id number] 17:09:00Laterality?->RightReason for exam:- >effusionLabs to be Ordered:->Body Fluid Culture (w/GramStain, C\\T\\S)Labs to be Ordered:->CytologyLabs to be Ordered:->Glucose+LDH+ProteinLabs to be Ordered:->Fungal CultureFINAL REPORT PROCEDURE: Ultrasound-guided thoracentesis INDICATION: effusion.DESCRIPTION: After obtaining informed written consent, ultrasound scan showed pleural effusion on the right. The overlying skin was prepped and draped in the usual, sterile fashion and local 2% lidocaine anesthesia was administered. A 4 Turkmen catheter was advanced into the pleural cavity and 1500 mL of clear yellow fluid was removed. The catheter was removed without immediate complication. Samples were sent for analysis. IMPRESSION: Uncomplicated ultrasound-guided right thoracentesis with 1500 mL of fluid removed. Signed: Russ Gilbert Verified Date/Time: 11/03/2019 17:09:49 Reading Location: [address] Body Reading Room RAD, CHEST, 1 VIEW, NON [id number] 16:47:00Reason for exam:->s/p right thoracestesisShould this be [...] MDReport Verified Date/Time: 11/03/2019 16:47:48 Reading Location: [address] Transitional Reading Room Legionella antigen, [id number] 13:44:00 Test Item Value Reference Range Interpretation Comments Legionella Urine Negative - see Negative for L. Antigen (test code comment pneumophi la = 63449-5) serogroup 1 ant igen, suggesting no r ecent or current infe ction with this serog roup. Legionellosis c annot be ruled out si nce other serogroup s and species may cau se disease. [facility] Tularetrep pneumoniae [id number] 13:44:00 Test Item Value Reference Range Interpretation Comments Strep pneumoniae Presumptive negative Presumptive Antigen (test code = [place] [address]-5) pneumonia - see pneumococcal comment pneumonia - see comment, Presumptive negative for pneumococcal meningitis FAIZA (test code = FAIZA) Presumptive negative for pneumococcal pneumonia, suggesting no current or recent pneumococcal infection. Infection due to S. pneumoniae cannot be ruled out since the antigen present in the sample may be below the detection limit of the test. Lab Interpretation Normal (test code = 24150-4) [facility] TulareTREP PNEUMONIAE [id number] 13:44:00 Test Item Value Reference Range Interpretation [...] the detection limit of the test.LEGIONELLA ANTIGEN, [id number] 13:44:00 Test Item Value Reference Range Interpretation Comments L. PNEUMOPHILA Negative - see Negative fo r L. SEROGP 1 UR AG comment pneumophila (BEAKER) (test code serogrou p 1 antigen, = 1156) suggesting no r ecent or current infe ction with this serog roup. Legionellosis c annot be ruled out si nce other serogroup s and species may cau se disease. Hemoglobin [id number] 12:43:00 Test Item Value Reference Range Interpretation Comments Hemoglobin A1C (test code = 4548-4) 5.4 % 4.3-6.1 Lab Interpretation (test code = Normal 91299-6) [facility] CenterHEMOGLOBIN [id number] 12:43:00 Test Item Value Reference Range Interpretation Comments HEMOGLOBIN A1C (BEAKER) (test code = 5.4 % 4.3-6.1 368) Venous doppler legs [id number] 11:15:27Ejection FractionSLEH ECHO HEARTLAB MKCKESSON CPACSRight Impression1. [...] of Study 11/03/2019 Age 89 Visit Number [id number] Gender Male Accession Number [id number] Date of 1930 Referring Ciara Abraham Room Number 0948 Physician MD [place] Aviation Maintenance Instructor Eloise Escobar [facility] Interpreting Physician DHEERAJ Russo ProcedureType of Study: Veins: Lower Ex tremities [...] in cm/s ; Diameters are measured in [facility] POCT-GLUCOSE [id number] 10:45:00 Test Item Value Reference Range Interpretation Comments POC-GLUCOSE METER 108 mg/dL 70-110 : TESTED A T [facility] (BEAKER) (test code = [place], 1538) [address]: Recycling Manager/Techni sophie ID = [id number] for GARCIA FFAR, JANY T4, [id number] 10:39:00 Test Item Value Reference Range Interpretation Comments Free T4 (test code = 3024-7) 0.71 ng/dL 0.7-1.48 FAIZA (test code = FAIZA) Recycling Manager ID - LM Lab Interpretation (test Normal code = 67095-0) [facility] CenterT4, [id number] 10:39:00 Test Item Value Reference Range Interpretation Comments FREE T4 (BEAKER) (test code = 655) 0.71 ng/dL 0.70-1.48 Recycling Manager ID - LMTSH/Free T4 If [id number] 09:49:00 Test Item Value Reference Range Interpretation Comments TSH (test code = 28832-1) 0.325 0.350- 4.940 uIU/mL L FAIZA (test code = FAIZA) Recycling Manager ID - LM Lab Interpretation (test Abnormal code = 98938-2) [facility] Test Item Value Reference Range Interpretation Comments Cortisol, Total (test code 21.3 ug/dL 3.7-19.4 H = 2755) FAIZA (test code = FAIZA) Recycling Manager ID - ALYSE W Lab Interpretation (test Abnormal code = 32049-8) [facility] 09:49[facility]00 Test Item Value Reference Range Interpretation Comments CORTISOL, TOTAL (BEAKER) (test 21.3 ug/dL 3.7-19.4 H code = 2755) Recycling Manager ID - ALYSE WTSH/FREE T4 IF [id number] 09:49:00 Test Item Value Reference Range Interpretation Comments THYROID STIMULATING HORMONE 0.325 uIU/mL 0.350-4.940 L (BEAKER) (test code = 772) Recycling Manager ID - [id number] 09:44:00 Test Item Value Reference Range Interpretation Comments Procalcitonin (test code = 1.00 ng/mL <0.05 H 83363-1) FAIZA (test code = FAIZA) SEPSIS RISK (ng/mL)Low: 0.05-0.50Intermedi ate: 0.51-2.00High: >=2.01 Lab Interpretation (test Abnormal code = 84224-1) [facility] 09:44:00 Test Item Value Reference Range Interpretation Comments PROCALCITONIN (BEAKER) (test code 1.00 ng/mL <0.05 H = 3036) SEPSIS RISK (ng/mL)Low: 0.05-0.50Intermediate: 0.51-2.00High: >=2.01BASIC METABOLIC [id number] 09:02:00 Test Item Value Reference Range Interpretation [...] S NOT APPLICABLE FOR DIALYSIS PATIEN TS. Recycling Manager ID - ALYSE WHEPATIC FUNCTION [id number] 09:02:00 Test Item Value Reference Range Interpretation [...] Specimen moderately (test code = 347) hemolyzed Recycling Manager ID - ALYSE WLACTIC ACID, [id number] 08:57:00 Test Item Value Reference Range Interpretation Comments LACTATE BLOOD VENOUS 1.83 mmol/L 0.50-2.20 Specime n markedly (2) (BEAKER) (test hemolyzed code = 2872) Recycling Manager ID - ALYSE WRAD, CHEST, 1 VIEW, NON [id number] 08:20:00Reason for exam:->pulmonary edemaShould this be performed [...] MDReport Verified Date/Time: 11/03/2019 08:20:32 Reading Location: [facility] C013V Neuro Reading Room CBC (HEMOGRAM ONLY)2019-11-03 06:41:00 [...] (BEAKER) (test code = 413) BLOOD GAS, [id number] 03:15:00 Test Item Value Reference Range Interpretation [...] (test code = 1819) 32.0 % Troponin [id number] 02:16:00 Test Item Value Reference Range Interpretation Comments Troponin I (test code = 0.58 ng/mL 0-0.03 26480-5) FAIZA (test code = FAIZA) Troponin I [...] L Lab Interpretation (test Abnormal code = 20837-7) [facility] [id number] 02:16:00 Test Item Value Reference Range Interpretation Comments TROPONIN I (BEAKER) (test code = 0.58 ng/mL 0.00-0.03 397) Troponin I (TnI) levels [...] failure, acidosis, acute neurological disease, and persistent tachyarrhythmia.Recycling Manager ID - PIAYA LRespiratory Panel [id number] 01:12:00 Test Item Value Reference Range Interpretation Comments Human Metapneumovirus Not detected Not detected, (test code = 27025-5) Equivocal Rhinovirus (test code = Not detected Not detected, 97989-6) Equivocal INFLUENZA A (NO Not detected Not detected, SUBTYPE) (test code = Equivocal 24361-5) Influenza A subtype H1 (test code = 83747-7) Influenza A Subtype H3 (test code = 11903-4) Influenza A Subtype H1-2009 (test code = 00601-8) Influenza B (test code Not detected Not detected, = 42883-2) Equivocal Respiratory Syncytial Not detected Not detected, Virus (test code = Equivocal 57288-7) Parainfluenza Virus 1 Not detected Not detected, (test code = 14137-2) Equivocal Parainfluenza Virus 2 Not detected Not detected, (test code = 75375-0) Equivocal Parainfluenza virus 3 Not detected Not detected, (test code = 76281-3) Equivocal Parainfluenza Virus 4 Not detected Not detected, (test code = 74111-1) Equivocal Adenovirus (test code = Not detected Not detected, 54298-3) Equivocal Coronavirus 229E (test Not detected Not detected, code = 39537-7) Equivocal Coronavirus HKU1 (test Not detected Not detected, code = 68727-0) Equivocal Coronavirus NL63 (test Not detected Not detected, code = 50044-6) Equivocal Coronavirus OC43 (test Not detected Not detected, code = 20719-9) Equivocal Bordetella Pertussis Not detected Not detected, (test code = 67959-6) Equivocal Chlamydophila Not detected Not detected, Pneumoniae (test code = Equivocal 21557-5) Mycoplasma Pneumoniae Not detected Not detected, (test code = 87129-2) Equivocal FAIZA (test code = FAIZA) Other viruses and bacteria not targeted by this PCR panel cannot be excluded; therefore clinical correlation and follow up of serology, culture results, and other molecular studies is required. The results are not intended to be used as the sole means for clinical diagnosis or patient management decisions. This sample was tested at the [facility] using the HapBooArray Respiratory Panel. It is FDA cleared and has been verified and approved by the [facility] for clinical use on nasopharyngeal swab specimens. The performance of the FilmArray RP has not been established in individuals who received influenza vaccine. Recent administration of a nasal influenza vaccine may cause false positive results for Influenza A and/orInfluenza B. [facility] [id number] 01:12:00 Test Item Value Reference Range Interpretation [...] sample was tested at the [facility] using the HapBooArray Respiratory Panel. It is FDA cleared and has been verified and approved by the [facility] for clinical use on nasopharyngeal swab specimens.The performance of the FilmArrayRP has not been established in individuals who received influenza vaccine. Recent administration ofa nasal influenza vaccine may cause false positive results for Influenza A and/orInfluenza B.TROPONIN [id number] 00:57:00 Test Item Value Reference Range Interpretation Comments TROPONIN I (BEAKER) (test code = 0.56 ng/mL 0.00-0.03 [facility]) Troponin I (TnI) levels must be [...] failure, acidosis, acute neurological disease, and persistent tachyarrhythmia.Recycling Manager ID - PIAYA LECG/EKG [id number] 23:37:13 Test Item Value Reference Range Interpretation [...] criteria. Lab Interpretation (test Abnormal code = 01577-7) [facility] [id number] 23:37:13Ciara Posadas MD 11/03/2019 12:52 AMCritical CarePerformed [...] this patient from another provider of my specialty.[facility] Center[facility], [id number] 21:28:00 Test Item Value Reference Range Interpretation Comments PH ARTERIAL (BEAKER) (test code = 7.51 7.35-7.45 H 383) PCO2 ARTERIAL (BEAKER) (test code 34 mmHg 35-45 L = 384) PO2 ARTERIAL (BEAKER) (test code = 110 mmHg 80-90 H 385) O2 SATURATION ARTERIAL (BEAKER) 98.5 % 96.0-97.0 H (test code = 386) HCO3 ARTERIAL (BEAKER) (test code 26 mmol/L = 388) BASE EXCESS ARTERIAL (BEAKER) 3.4 mmol/L -2.0-3.0 H (test code = 387) PATIENT TEMPERATURE (BEAKER) (test 36.6 C code = 1818) FIO2 (BEAKER) (test code = 1819) 40.0 % URINALYSIS W/ REFLEX URINE [id number] 21:12:00 Test Item Value Reference Range Interpretation [...] /LPF 514) SOURCE(BEAKER) (test code = 2795) Recycling Manager ID - [auto]Recycling Manager ID - hankSARS-CoV2/RT-PCR (Symptomatic ONLY) 2019-11-02 21:08:00 Test Item Value Reference Range Interpretation Comments SARS-COV2/RT-PCR Not Detected Not Detected, (test code = Negative 28250-9) SARS-COV-2 [facility] (test code = 85631-9) FAIZA (test code = Negative results do [...] of the Act. Fact Sheet for Healthcare Providers:https://www.[employer]/Documents/Xper t%20Xpress%20SARS%20CoV- 2/Fact%20Sheets/3023802 %86OAJZ-BTG-8%20HEALTHCA RE%20PROVIDERS%20FACT%20 SHEET.pdf Fact Sheet for Healthcare Patients:https://www.[employer]/Documents/Xpert %20Xpress%20SARS%20CoV-2 /Fact%20Sheets/3023801% 18VLSI-OVI-4%20PATIENT%2 0FACT%20SHEET.pdf Performing Laboratory:[facility] [place] [address] [facility] ([facility])2019-11-02 21:08:00 Test Item Value Reference Range Interpretation Comments SARS-COV2/RT-PCR (test Not Detected Not Detected, Negative code = 5698960) SARS-COV-[address] [facility] (test code = 9398668) Negative results do not preclude SARS-CoV-2 infection [...] of the Act.Fact Sheet for Healthcare Pro viders:https://www.[employer]/Documents/Xpert%20Xpress%20SARS%20CoV-2/Fact%20Sh eets/302-3802%91ZROZ-EEQ-5%20HEALTHCARE%20PROVIDERS%20FACT%20SHEET.pdfFact Sheet for Healthcare Patients:https://www.[employer]/Documents/Xpert%20Xpress%20SARS%20CoV-2/Fact%20Sheets/302-3801%20SARS-COV -2%20PATIENT%20FACT%20SHEET.pdfPerforming Laboratory:[facility] [facility], [place] [address]LLSEWYXM [id number] 20:37:00 Test Item Value Reference Range Interpretation Comments TROPONIN I (BEAKER) (test code = 0.36 ng/mL 0.00-0.03 [facility]) Troponin I (TnI) levels must be [...] failure, acidosis, acute neurological disease, and persistent tachyarrhythmia.Recycling Manager ID - BSManual Differential 2019-11-02 20:33:00 Test [...] = 3438) FAIZA (test code = FAIZA) Recycling Manager ID - Judy Hafsa comments: Slide comments: Lab Interpretation (test Abnormal code = 85051-7) [facility](CELLAVISION MANUAL DIFF)2019-11-02 20:33:00 Test Item Value Reference [...] CONCENTRATION Adequate (CELLAVISION)(BEAKER) (test code = 3438) Recycling Manager ID - Judy Pereyra comments: Slide comments:B-type Natriuretic Factor (BNP)2019-11-02 20:28:00 Test Item Value Reference Range Interpretation Comments BNP (test code = 62525-0) 1394 pg/mL 0-100 H FAIZA (test code = FAIZA) Recycling Manager ID - DB Lab Interpretation (test Abnormal code = 94889-4) [facility] Center[facility] NATRIURE[facility] FA[facility] (BNP)2019-11-02 20:28:00 Test Item Value Reference Range Interpretation Comments B-TYPE NATRIURETIC PEPTIDE 1394 pg/mL 0-100 H (BEAKER) (test code = 700) Recycling Manager ID - DBHEPATIC FUNCTION [id number] 20:25:00 Test Item Value Reference Range Interpretation [...] (test code = 29 U/L 6-55 347) Recycling Manager ID - BSBASIC METABOLIC [id number] 20:25:00 Test Item Value Reference Range Interpretation [...] S NOT APPLICABLE FOR DIALYSIS PATIEN TS. Recycling Manager ID - [id number] 20:24:00 Test Item Value Reference Range Interpretation Comments PARTIAL THROMBOPLASTIN TIME 35.2 seconds 22.5-36.0 (BEAKER) (test code = 760) 6 hours after starting heparin infusion and as indicated per sliding scale PT/[id number] 20:24:00 Test Item Value Reference Range Interpretation [...] heart valves.Prior to initiating heparinPrior to initiating [id number] 20:24:00 Test Item Value Reference Range Interpretation Comments PARTIAL THROMBOPLASTIN TIME 33.6 seconds 22.5-36.0 (BEAKER) (test code = 760) LACTIC ACID, [id number] 20:20:00 Test Item Value Reference Range Interpretation Comments LACTATE BLOOD VENOUS 2.26 mmol/L 0.50-2.20 H Specime n slightly (2) (BEAKER) (test hemolyzed code = 2872) Recycling Manager ID - BSRAD, CHEST, 1 VIEW, NON [id number] 20:14:00Reason for exam:- >SHORTNESS OF BREATHReason for [...] bony thorax is demineralized. Signed: Mario Bills MDRepmid [facility] Verified Date/Time: 11/02/2019 20:14:40 CBC W/PLT COUNT & AUTO [id number] 20:08:00 Test Item Value Reference Range Interpretation [...]
[2019-12-06] MEDS ORDERED: DOCUSATE NA/SENNA CONC 1 TAB PO PRN (22:56)
[2019-12-06 23:09] VITALS: BMI 18.8
[2019-12-07] MEDS: APIXABAN 2.5 MG TABLET PO SCH ×3 (00:06→21:52)
[2019-12-07] MEDS: POTASSIUM CL SA 10 MEQ TAB PO SCH ×3 (00:07→21:52)
[2019-12-07] MEDS ORDERED: Meropenem 1000 MG/VIAL IV SCH ×2 (06:00)
[2019-12-07 06:17] LABS: Absolute Lymphocytes (CBC) 0.6 K/uL (0.7-4.9); Basophils % 0.4 % (0-1.3); Hematocrit 31.3 % (39.6-49.0); Lymphocytes % 12.3 % (15.3-44.8); MPV 8.6 fL (7.6-11.3); RBC Red Blood Cell Count 3.63 M/uL (4.33-5.43)
[2019-12-07 06:38] LABS: Bilirubin Total 0.4 mg/dL (0.2-1.0); Protein, Total 5.5 g/dL (6.4-8.2)
--- NOTE | 2019-12-07 08:51 | P.HP ---
Certification for Inpatient Patient admitted to: Inpatient With expected LOS: >2 Midnights Patient will require the following post-hospital care: None Practitioner: I am a practitioner with admitting privileges, knowledge of patient current condition, hospital course, and medical plan of care. Services: Services provided to patient in accordance with Admission requirements found in Title 42 Section 412.3 of the Code of Federal Regulations Patient History Date of Service: 12/06/19 Reason for admission: ESBL E coli; status post cardiac intervention/procedures History of Present Illness: Patient is an 89-year-old gentleman who was sent to [facility] in [place] for a Transcatheter aortic valve replacement (TAVAR) procedure. Patient has severe aortic stenosis. This was repaired. Patient was sent to our rehab for evaluation. Patient has been doing physical therapy. However, he developed some weakness and UA revealed ESBL E coli. He was started on Merrem. Patient was still feeling poorly and developed a cough so his COVID-19 test came back. For it was spinal is a so patient was removed from rehab in transfer to our COVID-19 floor. Patient will be admitted for further evaluation. Allergies No Known Allergies Allergy (Verified 12/02/19 11:41) Home Medications: Bumetanide 1 mg PO DAILY 12/02/19 Clopidogrel Bisulfate [Plavix] 75 mg PO DAILY 12/02/19 Dutasteride [Avodart] 0.5 mg PO DAILY 12/02/19 Nystatin Powder [Mycostatin (Powder)*] 1 xavier TOP BID 12/02/19 - Past Medical/Surgical History Has patient received pneumonia vaccine in the past: Yes Diabetic: No -: htn -: cva -: cardiogenic shock -: squamous cell carcinoma of lung -: pneumonia -: heart failure -: Bronchoscopy x2 -: Right and left heart cath - Family History Father Family History: Reviewed- Non-Contributory - Social History Smoking Status: Never smoker Alcohol use: No CD- Drugs: No Caffeine use: No Place of Residence: Home Review of Systems 10-point ROS is otherwise unremarkable Physical Examination - Vital Signs Temperature: 98.4 F Blood Pressure: 107/49 Pulse: 70 Respirations: 15 Pulse Ox (%): 98 - Physical Exam General: Alert, In no apparent distress, Oriented x3 HEENT: Atraumatic, PERRLA, Mucous membr. moist/pink, EOMI, Sclerae nonicteric Neck: Supple, 2+ carotid pulse no bruit, No LAD, Without JVD or thyroid abnormality Respiratory: Clear to auscultation bilaterally, Normal air movement Cardiovascular: Regular rate/rhythm, Normal S1 S2 Gastrointestinal: Normal bowel sounds, Soft and benign, Non-distended, No tenderness Musculoskeletal: No tenderness Integumentary: No rashes Neurological: Normal gait, Normal speech, Normal strength at 5/5 x4 extr, Normal tone, Sensation intact, Cranial nerves 3-12 intact, Normal affect Lymphatics: No axilla or inguinal lymphadenopathy - Studies Laboratory Data (last 24 hrs) 12/07/19 05:55: Sodium 143, Potassium 4.0, BUN 21 H, Creatinine 0.83, Glucose 96, Total Bilirubin 0.4, AST 28, ALT 32, Alkaline Phosphatase 71 12/07/19 05:55: WBC 5.2 D, Hgb 10.3 L, Hct 31.3 L, Plt Count 144 L Assessment & Plan - Problems (Diagnosis) (1) Infection due to ESBL-producing Escherichia coli Current Visit: Yes Status: Acute (2) Heart valve replaced Current Visit: Yes Status: Acute (3) Anemia Current Visit: Yes Status: Acute (4) COVID-19 Current Visit: Yes Status: Acute - Plan Plan: 1. Arrange for PICC line placement 2. Arrange for IV antibiotic therapy 3. Continue physical therapy with home health 4. Case management Consult 5. Monitor labs closely 6. GI and DVT prophylaxis Discharge Plan: Home Plan to discharge in: 48 Hours - Advance Directives Does patient have a Living Will: No Does patient have a Durable POA for Healthcare: No - Code Status/Comfort Care Code Status Assessed: Yes Code Status: Full Code Critical Care: No Time Spent Managing PTS Care (In Minutes): 40
[2019-12-07] MEDS: BUMETANIDE 1 MG TABLET PO SCH (08:55)
[2019-12-07] MEDS: FERROUS SULFATE 325 MG TAB PO SCH (08:55)
[2019-12-07] MEDS: CLOPIDOGREL 75 MG TABLET PO SCH (08:56)
[2019-12-07] MEDS: JUVEN PACKET PO SCH ×2 (08:57→21:51)
[2019-12-07] MEDS: DUTASTERIDE 0.5 MG GEL CAP PO SCH (08:57)
[2019-12-07] MEDS: ENSURE ENLIVE 237 ML CAN PO SCH ×2 (08:57→21:51)
[2019-12-07] MEDS: CRANBERRY FRUIT EXTRACT 200 MG CAP PO SCH ×2 (08:59→21:52)
[2019-12-07] MEDS: LIDOCAINE 4% PATCH TOP SCH (08:59)
[2019-12-07] MEDS: NYSTATIN PWDR 100000 UNIT/GM TOP SCH ×2 (09:00→21:53)
[2019-12-07] MEDS: Meropenem 1,000 MG in NA CHLORIDE 0.9% 100 ML IV SCH ×2 (09:00→21:51)
--- NOTE | 2019-12-07 09:02 | P.PN ---
Date of Service: 12/07/19 Son's name is [phone]. Awaiting return phone call.
[2019-12-07] MEDS ORDERED: Meropenem 1,000 MG in NA CHLORIDE 0.9% 100 ML IV SCH (18:00)
[2019-12-08] MEDS: LIDOCAINE 4% PATCH TOP SCH (08:30)
[2019-12-08] MEDS: CLOPIDOGREL 75 MG TABLET PO SCH (08:31)
[2019-12-08] MEDS: BUMETANIDE 1 MG TABLET PO SCH (08:31)
[2019-12-08] MEDS: CRANBERRY FRUIT EXTRACT 200 MG CAP PO SCH ×2 (08:31→21:00)
[2019-12-08] MEDS: POTASSIUM CL SA 10 MEQ TAB PO SCH ×2 (08:31→21:01)
[2019-12-08] MEDS: DUTASTERIDE 0.5 MG GEL CAP PO SCH (08:31)
[2019-12-08] MEDS: FERROUS SULFATE 325 MG TAB PO SCH (08:31)
[2019-12-08] MEDS: APIXABAN 2.5 MG TABLET PO SCH ×2 (08:31→21:01)
[2019-12-08] MEDS: JUVEN PACKET PO SCH ×2 (08:32→21:01)
[2019-12-08] MEDS: NYSTATIN PWDR 100000 UNIT/GM TOP SCH ×2 (08:32→21:00)
[2019-12-08] MEDS: ENSURE ENLIVE 237 ML CAN PO SCH ×2 (08:39→21:01)
[2019-12-08] MEDS: Meropenem 1,000 MG in NA CHLORIDE 0.9% 100 ML IV SCH ×2 (08:39→21:01)
--- NOTE | 2019-12-08 08:59 | P.PN ---
Subjective Date of Service: 12/08/19 Awaiting placement of declining. Then possibly discharge with son. Son works in acupuncture. He is nervous about giving this to his patients. He is trying to workout a different discharge. Await PICC line placement and possibly discharge with family once this is completed. Review of Systems 10-point ROS is otherwise unremarkable Physical Examination - Vital Signs Temperature: 98.5 F Blood Pressure: 113/51 Pulse: 71 Respirations: 18 Pulse Ox (%): 95 - Physical Exam General: Alert, In no apparent distress, Oriented x3 Respiratory: Clear to auscultation bilaterally, Normal air movement Cardiovascular: Regular rate/rhythm, Normal S1 S2, No murmurs Gastrointestinal: Normal bowel sounds, Soft and benign, Non-distended, No tenderness Musculoskeletal: No clubbing, No swelling, No tenderness Neurological: Normal speech, Normal tone, Sensation intact, Cranial nerves 3-12 intact, Normal affect Lymphatics: No axilla or inguinal lymphadenopathy - Studies Medications List Reviewed: Yes Assessment & Plan - Problems (Diagnosis) (1) Infection due to ESBL-producing Escherichia coli Current Visit: Yes Status: Acute (2) Heart valve replaced Current Visit: Yes Status: Acute (3) Anemia Current Visit: Yes Status: Acute (4) COVID-19 Current Visit: Yes Status: Acute - Plan Plan: 1. Arrange for PICC line placement; IV InVanz at discharge 2. Arrange for IV antibiotic therapy 3. Continue physical therapy with home health 4. Case management Consult 5. Monitor labs closely 6. Spoke with son David who was arranging for discharge planning. He does not want patient to go home with his mom who is elderly and also with medical issues. 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 He does not want to get his patient infected if he is a carrier. Advised him to get testing for himself and make arrangements for his father. At this time they are working with Case Management to get this finished. 7. GI and DVT prophylaxis Discharge Plan: Home Plan to discharge in: Greater than 2 days - Advance Directives Does patient have a Living Will: No Does patient have a Durable POA for Healthcare: No - Code Status/Comfort Care Code Status: Full Code Critical Care: No Time Spent Managing PTS Care (In Minutes): 25
[2019-12-08] MEDS: ESCITALOPRAM 20 MG TAB PO SCH ×2 (11:24→20:59)
--- NOTE | 2019-12-09 00:59 | P.PN ---
Subjective Date of Service: 12/07/19 Doing well with no new c/o; repeat testing pending. Continue with current POC; Outpt IV antibiotics: Invanz 1000mg IVPB daily x 2 weeks Review of Systems 10-point ROS is otherwise unremarkable Physical Examination - Vital Signs Temperature: 98.5 F Blood Pressure: 113/51 Pulse: 71 Respirations: 18 Pulse Ox (%): 95 - Physical Exam General: Alert, In no apparent distress, Oriented x3 Respiratory: Clear to auscultation bilaterally, Normal air movement Cardiovascular: Regular rate/rhythm, Normal S1 S2, No murmurs Gastrointestinal: Normal bowel sounds, Soft and benign, Non-distended, No tenderness Musculoskeletal: No clubbing, No swelling Neurological: Sensation intact, Cranial nerves 3-12 intact - Studies Medications List Reviewed: Yes Assessment & Plan - Problems (Diagnosis) (1) Infection due to ESBL-producing Escherichia coli Current Visit: Yes Status: Acute (2) Heart valve replaced Current Visit: Yes Status: Acute (3) Anemia Current Visit: Yes Status: Acute (4) COVID-19 Current Visit: Yes Status: Acute - Plan Plan: Arrange for discharge planning at this time: 1. Arrange for PICC line placement; IV InVanz at discharge 2. Arrange for IV antibiotic therapy 3. Continue physical therapy with home health 4. Case management Consult 5. Monitor labs closely 6. Spoke with edmundo Hernandez who was arranging for discharge planning w/ case management. 7. GI and DVT prophylaxis - Advance Directives Does patient have a Living Will: No Does patient have a Durable POA for Healthcare: No - Code Status/Comfort Care Code Status: Full Code
[2019-12-09] MEDS: BUMETANIDE 1 MG TABLET PO SCH (08:03)
[2019-12-09] MEDS: CRANBERRY FRUIT EXTRACT 200 MG CAP PO SCH ×2 (08:03→20:11)
[2019-12-09] MEDS: ESCITALOPRAM 20 MG TAB PO SCH ×2 (08:04→20:11)
[2019-12-09] MEDS: POTASSIUM CL SA 10 MEQ TAB PO SCH ×2 (08:04→20:11)
[2019-12-09] MEDS: APIXABAN 2.5 MG TABLET PO SCH ×2 (08:04→20:11)
[2019-12-09] MEDS: DUTASTERIDE 0.5 MG GEL CAP PO SCH (08:04)
[2019-12-09] MEDS: CLOPIDOGREL 75 MG TABLET PO SCH (08:04)
[2019-12-09] MEDS: FERROUS SULFATE 325 MG TAB PO SCH (08:04)
[2019-12-09] MEDS: Meropenem 1,000 MG in NA CHLORIDE 0.9% 100 ML IV SCH ×2 (08:05→20:11)
[2019-12-09] MEDS: JUVEN PACKET PO SCH ×2 (08:05→20:12)
[2019-12-09] MEDS: LIDOCAINE 4% PATCH TOP SCH (08:05)
[2019-12-09] MEDS: NYSTATIN PWDR 100000 UNIT/GM TOP SCH ×2 (08:05→20:12)
[2019-12-09] MEDS: ENSURE ENLIVE 237 ML CAN PO SCH ×2 (08:06→20:12)
--- NOTE | 2019-12-09 12:05 | P.PN ---
Subjective Date of Service: 12/09/19 Chief Complaint: ESBL E coli; status post cardiac intervention/procedures Subjective: No new changes, Doing well Appreciative of the update. States that his family has always been close and lately they have had a lot of health issues. States he understands his son's concern about going home and the concern of him going home and infecting his who is elderly with health problems as well. Review of Systems 10-point ROS is otherwise unremarkable Physical Examination - Vital Signs Temperature: 98 F Blood Pressure: 104/54 Pulse: 69 Respirations: 18 Pulse Ox (%): 98 - Physical Exam General: Alert, In no apparent distress, Oriented x3 HEENT: Atraumatic, Normocephalic, PERRLA Neck: Supple, Other (Trachea midline) Respiratory: Clear to auscultation bilaterally, Normal air movement Cardiovascular: No edema, Normal pulses, Regular rate/rhythm, Normal S1 S2 Capillary refill: <2 Seconds Gastrointestinal: Normal bowel sounds, Soft and benign, Non-distended Musculoskeletal: No clubbing, No swelling, No contractures Integumentary: No rashes, No breakdown Neurological: Normal speech, Normal strength at 5/5 x4 extr, Normal tone - Studies Medications List Reviewed: Yes Assessment And Plan - Plan Impression: Acute cystitis due to ESBL E coli Recent aortic valve replaced Anemia of chronic disease Depression Covid-19 Plan: Acute cystitis due to ESBL E coli: Patient is scheduled for PICC line placement this evening. Due to his Covid-19 positive status he was placed further down the list. Will continue IV meropenem at discharge. Case management working with family, Betsy for discharge planning. Son is concerned about patient going home to his mom/patient's who is elderly with health issues. He is concerned about spreading infection to her. 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 Plan is to discharge patient with home health and home health PT. Recent aortic valve replacement: Patient is at baseline and doing well. Continue Eliquis. Anemia of chronic disease: Latest hemoglobin hematocrit of 10.3/31.3. Will continue to monitor. Patient is asymptomatic at this time. Depression: Family noted that patient had feelings of doom when having conversations. Patient expressed to me that his family was very close and that in the last few months they have gone through many changes. He has been in the hospital for several weeks and it is affecting his emotional state. Patient was started on Lexapro 10 mg b.i.d.. Will continue to monitor. Covid-19 positive: Family concerned as mentioned above. Not having respiratory issues. Vital stable. Discharge Plan: Home Plan to discharge in: 48 Hours - Code Status/Comfort Care Code Status Assessed: Yes Time Spent Managing PTS Care (In Minutes): 45
[2019-12-10] MEDS: POTASSIUM CL SA 10 MEQ TAB PO SCH ×2 (08:21→19:19)
[2019-12-10] MEDS: APIXABAN 2.5 MG TABLET PO SCH ×2 (08:21→19:19)
[2019-12-10] MEDS: BUMETANIDE 1 MG TABLET PO SCH (08:21)
[2019-12-10] MEDS: LIDOCAINE 4% PATCH TOP SCH (08:21)
[2019-12-10] MEDS: FERROUS SULFATE 325 MG TAB PO SCH (08:22)
[2019-12-10] MEDS: CLOPIDOGREL 75 MG TABLET PO SCH (08:22)
[2019-12-10] MEDS: ENSURE ENLIVE 237 ML CAN PO SCH ×2 (08:23→19:20)
[2019-12-10] MEDS: JUVEN PACKET PO SCH ×2 (08:23→19:20)
[2019-12-10] MEDS: CRANBERRY FRUIT EXTRACT 200 MG CAP PO SCH ×2 (08:30→19:18)
[2019-12-10] MEDS: DUTASTERIDE 0.5 MG GEL CAP PO SCH (08:30)
[2019-12-10] MEDS: Meropenem 1,000 MG in NA CHLORIDE 0.9% 100 ML IV SCH ×2 (08:30→19:19)
[2019-12-10] MEDS: NYSTATIN PWDR 100000 UNIT/GM TOP SCH ×2 (08:31→19:19)
[2019-12-10] MEDS: ESCITALOPRAM 20 MG TAB PO SCH ×2 (08:33→19:19)
--- NOTE | 2019-12-10 12:23 | RAD REPORT ---
EXAM DESCRIPTION: Chest Single View CLINICAL HISTORY: 89 years Male, picc placement COMPARISON: Chest x-ray December 05, 2019 FINDINGS: A right upper extremity PICC line is demonstrated with tip in the lower SVC. A somewhat rounded opacity in the right lower lung zone is again demonstrated. No pneumothorax. Small right pleural effusion is demonstrated. Heart appears borderline enlarged. Stent overlying the cardiac silhouette demonstrated. Cardiac loop recorder is present. Aortic atherosclerosis is noted. Osseous structures are unremarkable. IMPRESSION: 1. Right upper extremity PICC line tip in the SVC. 2. Somewhat rounded opacity in the right lung base again demonstrated which could represent pneumonia or atelectasis with underlying mass not excluded. 3. Small right pleural effusion. Electronically signed by: Bryn Escobar MD 12/10/2019 12:26 AM CDT Due to temporary technical issues with the PACS/Fluency reporting system, reports are being signed by the in house radiologist without review as a courtesy to ensure prompt reporting. The interpreting r adiologist is fully responsible for the content of the report.
--- NOTE | 2019-12-10 13:17 | P.PN ---
Subjective Date of Service: 12/10/19 Chief Complaint: ESBL E coli; status post cardiac intervention/procedures Subjective: Improving, Doing well Appreciative of the update. States that his family has always been close and lately they have had a lot of health issues. States he understands his son's concern about going home and the concern of him going home and infecting his who is elderly with health problems as well. Review of Systems General: Unremarkable Eyes: Unremarkable ENT: Unremarkable Respiratory: Unremarkable Cardiovascular: Unremarkable Gastrointestinal: Unremarkable Musculoskeletal: Unremarkable Integumentary: Unremarkable Neurological: Unremarkable Physical Examination - Vital Signs Temperature: 97.2 F Blood Pressure: 111/52 Pulse: 68 Respirations: 16 Pulse Ox (%): 98 - Physical Exam General: Alert, In no apparent distress, Oriented x3 HEENT: Atraumatic, Normocephalic, PERRLA Neck: Supple, Other (Trachea midline) Respiratory: Clear to auscultation bilaterally, Normal air movement Cardiovascular: No edema, Normal pulses, Regular rate/rhythm, Normal S1 S2 Capillary refill: <2 Seconds Gastrointestinal: Normal bowel sounds, Soft and benign, Non-distended Musculoskeletal: No clubbing, No swelling, No contractures Integumentary: No rashes, No breakdown, No tenderness/swelling Neurological: Normal gait, Normal speech, Normal strength at 5/5 x4 extr - Studies Medications List Reviewed: Yes Assessment And Plan - Plan Impression: Acute cystitis due to ESBL E coli Recent aortic valve replaced Anemia of chronic disease Depression Covid-19 Plan: Acute cystitis due to ESBL E coli: PICC line in place. Continue IV meropenem. Patient will likely complete IV antibiotic therapy on this admission. Case management working with Betsy rose for discharge planning. Son is concerned about patient going home to his mom/patient's who is elderly with health issues. He is concerned about spreading infection to her. 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 Please see below Recent aortic valve replacement: Patient is at baseline and doing well. Continue Eliquis. Anemia of chronic disease: Latest hemoglobin hematocrit of 10.3/31.3. Will continue to monitor. Patient is asymptomatic at this time. Depression: In good spirits today. Continue Lexapro 10 mg b.i.d.. Will continue to monitor. Covid-19 positive: Family concerned as mentioned. Not having respiratory issues. Vital stable. Note: Hospitalist spoke to patient's son this afternoon at 1:14 p.m.. The son states that he does not want the patient home because the mom is elderly and with health issues. Mom cannot take care of patient. Son is concerned that the patient may fall or spreads Covid-19 to other members of the family. Son would like patient to go to a rehabilitation facility that takes Covid-[address] Palm discussing with case management for options. - Code Status/Comfort Care Code Status Assessed: Yes Time Spent Managing PTS Care (In Minutes): 45
[2019-12-11] MEDS: CLOPIDOGREL 75 MG TABLET PO SCH (08:13)
[2019-12-11] MEDS: ESCITALOPRAM 20 MG TAB PO SCH ×2 (08:13→20:11)
[2019-12-11] MEDS: DUTASTERIDE 0.5 MG GEL CAP PO SCH (08:13)
[2019-12-11] MEDS: LIDOCAINE 4% PATCH TOP SCH (08:14)
[2019-12-11] MEDS: BUMETANIDE 1 MG TABLET PO SCH (08:14)
[2019-12-11] MEDS: FERROUS SULFATE 325 MG TAB PO SCH (08:14)
[2019-12-11] MEDS: CRANBERRY FRUIT EXTRACT 200 MG CAP PO SCH ×2 (08:14→20:10)
[2019-12-11] MEDS: ENSURE ENLIVE 237 ML CAN PO SCH ×2 (08:15→20:12)
[2019-12-11] MEDS: POTASSIUM CL SA 10 MEQ TAB PO SCH ×2 (08:15→20:11)
[2019-12-11] MEDS: APIXABAN 2.5 MG TABLET PO SCH ×2 (08:15→20:12)
[2019-12-11] MEDS: JUVEN PACKET PO SCH ×2 (08:15→20:12)
[2019-12-11] MEDS: NYSTATIN PWDR 100000 UNIT/GM TOP SCH ×2 (08:16→20:12)
--- NOTE | 2019-12-11 16:22 | P.PN ---
Subjective Date of Service: 12/11/19 Chief Complaint: ESBL E coli; status post cardiac intervention/procedures Subjective: Doing well Physical Examination - Vital Signs Temperature: 97.7 F Blood Pressure: 114/56 Pulse: 68 Respirations: 18 Pulse Ox (%): 95 - Physical Exam General: Alert, In no apparent distress, Cooperative HEENT: Atraumatic Neck: Supple Respiratory: Normal air movement Cardiovascular: Normal pulses Neurological: Normal speech, Normal strength at 5/5 x4 extr, Normal tone - Studies Medications List Reviewed: Yes Assessment & Plan Discharge Plan: Other ([facility] facility) Plan to discharge in: 24 Hours Physician Review Additional Text: Impression: UTI, urine culture positive for E coli-ESBL COVID 19 infection, asymptomatic Recent aortic valve replaced Anemia of chronic disease Depression Plan: UTI, urine culture positive for E coli-ESBL: Patient has completed course of IV antibiotic therapy. UTI prevention address. Awaiting transfer to skilled facility to continue rehab. This will need to be a COVID positive bacilli COVID 19 infection, asymptomatic: Patient asymptomatic at this time. Will monitor closely. Maintain oxygen above 90%. Recent aortic valve replaced: Patient had aortic valve replaced in the past. Anemia of chronic disease: Stable Depression: Continue medication Time Spent Managing Pts Care (In Minutes): 55
[2019-12-12 08:06] VITALS: O2SAT 98
[2019-12-12] MEDS: JUVEN PACKET PO SCH ×2 (09:00→20:17)
[2019-12-12] MEDS: ENSURE ENLIVE 237 ML CAN PO SCH ×2 (09:00→20:17)
[2019-12-12] MEDS: NYSTATIN PWDR 100000 UNIT/GM TOP SCH ×2 (09:00→21:00)
[2019-12-12] MEDS: POTASSIUM CL SA 10 MEQ TAB PO SCH ×2 (09:04→20:17)
[2019-12-12] MEDS: CRANBERRY FRUIT EXTRACT 200 MG CAP PO SCH ×2 (09:04→20:17)
[2019-12-12] MEDS: ESCITALOPRAM 20 MG TAB PO SCH ×2 (09:04→20:17)
[2019-12-12] MEDS: CLOPIDOGREL 75 MG TABLET PO SCH (09:05)
[2019-12-12] MEDS: FERROUS SULFATE 325 MG TAB PO SCH (09:05)
[2019-12-12] MEDS: BUMETANIDE 1 MG TABLET PO SCH (09:05)
[2019-12-12] MEDS: DUTASTERIDE 0.5 MG GEL CAP PO SCH (09:05)
[2019-12-12] MEDS: LIDOCAINE 4% PATCH TOP SCH (09:05)
--- NOTE | 2019-12-12 16:43 | P.PN ---
Subjective Date of Service: 12/12/19 Chief Complaint: ESBL E coli; status post cardiac intervention/procedures Subjective: Doing well Physical Examination - Vital Signs Temperature: 98.2 F Blood Pressure: 106/51 Pulse: 70 Respirations: 20 Pulse Ox (%): 98 - Physical Exam General: Alert, Cooperative HEENT: Atraumatic Neck: Supple Respiratory: Clear to auscultation bilaterally Neurological: Normal speech, Normal strength at 5/5 x4 extr, Normal tone - Studies Medications List Reviewed: Yes Assessment & Plan Discharge Plan: Other (Skilled facility) Plan to discharge in: 24 Hours Physician Review Additional Text: Impression: UTI, urine culture positive for E coli-ESBL COVID 19 infection, asymptomatic Recent aortic valve replaced Anemia of chronic disease Depression Plan: UTI, urine culture positive for E coli-ESBL: Patient has completed course of IV antibiotic therapy. UTI prevention address. Awaiting transfer to skilled facility to continue rehab once approved. COVID 19 infection, asymptomatic: Patient asymptomatic at this time. Will monitor closely. Maintain oxygen above 90%. Recent aortic valve replaced: Patient had aortic valve replaced in the past. Anemia of chronic disease: Stable Depression: Continue medication Time Spent Managing Pts Care (In Minutes): 55
[2019-12-13] MEDS: NYSTATIN PWDR 100000 UNIT/GM TOP SCH (09:00)
[2019-12-13] MEDS: JUVEN PACKET PO SCH ×2 (09:00→21:36)
[2019-12-13] MEDS: ENSURE ENLIVE 237 ML CAN PO SCH ×2 (09:00→21:36)
[2019-12-13] MEDS: LIDOCAINE 4% PATCH TOP SCH (09:32)
[2019-12-13] MEDS: BUMETANIDE 1 MG TABLET PO SCH (09:33)
[2019-12-13] MEDS: ESCITALOPRAM 20 MG TAB PO SCH ×2 (09:33→21:37)
[2019-12-13] MEDS: CLOPIDOGREL 75 MG TABLET PO SCH (09:33)
[2019-12-13] MEDS: DUTASTERIDE 0.5 MG GEL CAP PO SCH (09:33)
[2019-12-13] MEDS: POTASSIUM CL SA 10 MEQ TAB PO SCH ×2 (09:33→21:36)
[2019-12-13] MEDS: FERROUS SULFATE 325 MG TAB PO SCH (09:33)
[2019-12-13] MEDS: CRANBERRY FRUIT EXTRACT 200 MG CAP PO SCH ×2 (09:33→21:37)
--- NOTE | 2019-12-13 18:15 | P.PN ---
Subjective Date of Service: 12/13/19 Chief Complaint: ESBL E coli; status post cardiac intervention/procedures Subjective: Doing well Physical Examination - Vital Signs Temperature: 97.6 F Blood Pressure: 119/57 Pulse: 70 Respirations: 18 Pulse Ox (%): 98 - Physical Exam General: Alert HEENT: Atraumatic Neck: Supple Respiratory: Other (Patient with respiratory distress) Neurological: Normal speech, Normal strength at 5/5 x4 extr, Normal tone - Studies Medications List Reviewed: Yes Assessment & Plan Discharge Plan: Other (shelter facility) Plan to discharge in: 24 Hours Physician Review Additional Text: Impression: UTI, urine culture positive for E coli-ESBL COVID 19 infection, asymptomatic Recent aortic valve replaced Anemia of chronic disease Depression Plan: UTI, urine culture positive for E coli-ESBL: Patient has completed course of IV antibiotic therapy. UTI prevention address. Awaiting transfer to skilled facility to continue rehab once approved. Patient will need to continue with physical therapy. Spoke with physical therapy to see if the patient can receive therapy while in the COVID unit. COVID 19 infection, asymptomatic: Patient asymptomatic at this time. Will monitor closely. Maintain oxygen above 90%. Recent aortic valve replaced: Patient had aortic valve replaced in the past. Anemia of chronic disease: Stable Depression: Continue medication Time Spent Managing Pts Care (In Minutes): 55
--- NOTE | 2019-12-14 09:06 | P.PN ---
Subjective Date of Service: 12/14/19 Chief Complaint: ESBL E coli; status post cardiac intervention/procedures Subjective: No new changes, No C/O voiced Review of Systems General: Unremarkable Eyes: Unremarkable ENT: Unremarkable Respiratory: Unremarkable Cardiovascular: Unremarkable Gastrointestinal: Unremarkable Genitourinary: Unremarkable Musculoskeletal: Unremarkable Neurological: Unremarkable Lymphatics: Unremarkable Physical Examination - Vital Signs Temperature: 97.5 F Blood Pressure: 108/65 Pulse: 70 Respirations: 16 Pulse Ox (%): 98 - Physical Exam General: Alert, In no apparent distress, Cachectic HEENT: Atraumatic, Normocephalic Neck: Supple Respiratory: Clear to auscultation bilaterally, Normal air movement Cardiovascular: No edema, Regular rate/rhythm, Normal S1 S2 Capillary refill: <2 Seconds Gastrointestinal: Normal bowel sounds, Soft and benign Musculoskeletal: No contractures, No erythema, No tenderness Integumentary: No erythema, No warmth Neurological: Normal speech, Normal tone - Studies Medications List Reviewed: Yes Assessment & Plan Discharge Plan: Detention Plan to discharge in: 24 Hours - Code Status/Comfort Care Code Status Assessed: Yes Physician Review Additional Text: Impression: UTI, urine culture positive for E coli-ESBL COVID 19 infection, asymptomatic Recent aortic valve replaced Anemia of chronic disease Depression Plan: UTI, urine culture positive for E coli-ESBL: Patient has completed course of IV antibiotic therapy. UTI prevention address. Awaiting transfer to skilled facility to continue rehab once approved. Patient will need to continue with physical therapy. Spoke with physical therapy to see if the patient can receive therapy while in the COVID unit, this is not possible at this time, pt will need to work with nursing staff when possible. COVID 19 infection, asymptomatic: Patient asymptomatic at this time. Will monitor closely. Maintain oxygen above 90%. Recent aortic valve replaced: Patient had aortic valve replaced in the past. Anemia of chronic disease: Stable Depression: Continue medication Critical Care: No Time Spent Managing Pts Care (In Minutes): 55
[2019-12-14] MEDS: CRANBERRY FRUIT EXTRACT 200 MG CAP PO SCH ×2 (09:57→21:00)
[2019-12-14] MEDS: POTASSIUM CL SA 10 MEQ TAB PO SCH ×2 (09:57→21:00)
[2019-12-14] MEDS: FERROUS SULFATE 325 MG TAB PO SCH (09:57)
[2019-12-14] MEDS: BUMETANIDE 1 MG TABLET PO SCH (09:57)
[2019-12-14] MEDS: ESCITALOPRAM 20 MG TAB PO SCH ×2 (09:57→21:00)
[2019-12-14] MEDS: ENSURE ENLIVE 237 ML CAN PO SCH ×2 (09:58→22:21)
[2019-12-14] MEDS: JUVEN PACKET PO SCH ×2 (09:58→22:21)
[2019-12-14] MEDS: DUTASTERIDE 0.5 MG GEL CAP PO SCH (09:58)
[2019-12-14] MEDS: CLOPIDOGREL 75 MG TABLET PO SCH (09:58)
[2019-12-14] MEDS: LIDOCAINE 4% PATCH TOP SCH (10:00)
--- NOTE | 2019-12-14 15:56 | P.DS ---
Admission Date: 12/06/19 Discharge Date: 12/14/19 Primary Care Provider: unknown Disposition: TRANSFER TO SNF - MEDICAL Discharge Condition: GOOD Reason for Admission: ESBL E coli; status post cardiac intervention/procedures Consultations: Pulmonary-Dr. De La Cruz Procedures: CXR: FINDINGS: A right upper extremity PICC line is demonstrated with tip in the l ower SVC. A somewhat rounded opacity in the right lower lung zone is again demonstrated. No pneumothorax. Small right pleural effusion is demonstrated. Heart appears borderline enlarged. Stent overlying the cardiac silhouette demonstrated. Cardiac loop recorder is present. Aortic atherosclerosis is noted. Osseous structures are unremarkable. IMPRESSION: 1. Right upper extremity PICC line tip in the SVC. 2. Somewhat rounded opacity in the right lung base again demonstrated which could represent pneumonia or atelectasis with underlying mass not excluded. 3. Small right pleural effusion. Medical Problem List: UTI, urine culture positive for E coli-ESBL resolved COVID 19 infection, asymptomatic Recent aortic valve replaced Anemia of chronic disease Depression Brief History of Present Illness: 89-year-old male who was in the 5th floor for inpatient rehab. He was sent from [facility] for transcatheter aortic valve replacement. He had gone there for inpatient rehab. Patient was stable in continue with physical therapy. While there patient was found to have UTI . The patient had also dev eloped a cough. He was tested for COVID. The patient was positive. Therefore patient transferred to the [facility] floor to continue treatment. Hospital Course: Patient was a transfer from the inpatient rehab facility after he had been transferred to rehab from [facility] for transcatheter aortic valve replacement procedure. Patient was found to have UTI. Urine culture positive for E coli-ESBL. Patient required IV antibiotic therapy-meropenem. While in inpatient rehab he was tested positive for COVID. Patient was asymptomatic. Patient has done well then the course of his stay. Patient has finished treatment for E coli-ESBL. Oxygen saturations within normal range. Family requested the patient to continue physical therapy at [facility]. Patient has been accepted. Patient will continue his care at the skilled facility. As mentioned, patient had transcatheter aortic valve replacement procedure. Patient also with anemia chronic disease, BPH, hypertension, and chronic pain and depression. This has remained stable. Patient will continue with current medications: Bumex 1 mg 1 pill daily along with potassium supplementation twice daily, Plavix 75 mg daily, Avodart 0.5 mg daily, metoprolol 25 mg daily, Altace 5 mg daily, Lexapro 10 mg 1 pill twice daily, iron 325 mg 1 pill daily, lidocaine patch daily to the back, Ensure supplementation 1 can twice daily, docusate daily for constipation.. Vital Signs/Physical Exam: Temp Pulse Resp BP Pulse Ox 97.5 F 70 16 108/65 98 12/14/19 09:05 12/14/19 09:05 12/14/19 09:05 12/14/19 09:05 12/14/19 09:05 General: Alert, In no apparent distress, Cooperative HEENT: Atraumatic Neck: Supple Respiratory: Clear to auscultation bilaterally Cardiovascular: Normal pulses, Regular rate/rhythm Gastrointestinal: Normal bowel sounds Neurological: Normal speech, Normal strength at 5/5 x4 extr, Normal tone Laboratory Data at Discharge: WBC 5.2 K/uL (4.3-10.9) D 12/07/19 05:55 Hgb 10.3 g/dL (13.6-17.9) L 12/07/19 05:55 Hct 31.3 % (39.6-49.0) L 12/07/19 05:55 Plt Count 144 K/uL (152-406) L 12/07/19 05:55 Sodium 143 mmol/L (136-145) 12/07/19 05:55 Potassium 4.0 mmol/L (3.5-5.1) 12/07/19 05:55 BUN 21 mg/dL (7-18) H 12/07/19 05:55 Creatinine 0.83 mg/dL (0.55-1.3) 12/07/19 05:55 Glucose 96 mg/dL (74-106) 12/07/19 05:55 Total Bilirubin 0.4 mg/dL (0.2-1.0) 12/07/19 05:55 AST 28 U/L (15-37) 12/07/19 05:55 ALT 32 U/L (12-78) 12/07/19 05:55 Alkaline Phosphatase 71 U/L (45-117) 12/07/19 05:55 Home Medications: RX: Bumetanide 1 mg PO DAILY 12/02/19 RX: Clopidogrel Bisulfate [Plavix] 75 mg PO DAILY 12/02/19 RX: Dutasteride [Avodart] 0.5 mg PO DAILY 12/02/19 RX: Nystatin Powder [Mycostatin (Powder)*] 1 xavier TOP BID 12/02/19 Furosemide [Lasix] 1 tab PO DAILY 12/07/19 RX: Metoprolol Tartrate [Lopressor] 25 mg PO DAILY 12/07/19 RX: Ramipril [Altace] 1 tab PO DAILY 12/07/19 RX: Docusate/Senna [Senokot-S*] 2 tab PO BEDTIME PRN #60 tab 12/14/19 RX: Ensure Enlive 237 ml PO BID #60 can 12/14/19 RX: Escitalopram [Lexapro*] 10 mg PO BID #60 tab 12/14/19 RX: Ferrous Sulfate [Ferrous Sulfate*] 325 mg PO DAILY #30 tab 12/14/19 RX: Lidocaine 4% Patch [Lidoderm 5% Patch*] 2 patch TOP DAILY #60 patch 12/14/19 RX: Potassium Oral Tab [Klor-Con 10 mEq Tab*] 10 meq PO BID #60 tab 12/14/19 New Medications: RX: Ensure Enlive 237 ml PO BID #60 can RX: Ferrous Sulfate [Ferrous Sulfate*] 325 mg PO DAILY #30 tab RX: Potassium Oral Tab [Klor-Con 10 mEq Tab*] 10 meq PO BID #60 tab RX: Escitalopram [Lexapro*] 10 mg PO BID #60 tab RX: Lidocaine 4% Patch [Lidoderm 5% Patch*] 2 patch TOP DAILY #60 patch RX: Docusate/Senna [Senokot-S*] 2 tab PO BEDTIME PRN #60 tab PRN Reason: Constipation Patient Discharge Instructions: 1. Patient stable for transfer to skilled facility. 2. Patient was a transfer from the inpatient rehab facility after he had been transferred to rehab from [facility] for transcatheter aortic valve replacement procedure. Patient was found to have UTI. Urine culture positive for E coli-ESBL. Patient required IV antibiotic therapy-meropenem. While in inpatient rehab he was tested positive for COVID. Patient was asymptomatic. Patient has done well then the course of his stay. Patient has finished treatment for E coli-ESBL. Oxygen saturations within normal range. Family requested the patient to continue physical therapy at skilled placement facility. Patient has been accepted. Patient will continue his care at the skilled facility. 3. As mentioned, patient had transcatheter aortic valve replacement procedure. Patient also with anemia chronic disease, BPH, hypertension, and chronic pain and depression. This has remained stable. Patient will continue with current medications: Bumex 1 mg 1 pill daily along with potassium supplementation twice daily, Plavix 75 mg daily, Avodart 0.5 mg daily, metoprolol 25 mg daily, Altace 5 mg daily, Lexapro 10 mg 1 pill twice daily, iron 325 mg 1 pill daily, lidocaine patch daily to the back, Ensure supplementation 1 can twice daily, docusate daily for constipation.. Diet: AHA Activity: Fall precautions Time spent managing pt's care (in minutes): 55
[2019-12-14 23:46] VITALS: BP 103/62; TEMP 97.8
== END 2019-12-14 22:15 | DRG 178 ==
LOC: 4TH 19:34
PROVIDERS: ADMIT Family Medicine; ATTEND Family Medicine
PROC: 02HV33Z Insertion of Infusion Device into Superior Vena Cava, Percutaneous Approach (ICD-10-PCS; principal; 2019-12-09)
DX: U07.1 COVID-19 (principal); N30.00 Acute cystitis without hematuria; Z16.12 Extended spectrum beta lactamase (ESBL) resistance; R64 Cachexia; Z68.1 Body mass index [BMI] 19.9 or less, adult; B96.20 Unspecified Escherichia coli [E. coli] as the cause of diseases classified elsewhere; Z79.02 Long term (current) use of antithrombotics/antiplatelets; Z79.899 Other long term (current) drug therapy; I10 Essential (primary) hypertension; Z86.73 Personal history of transient ischemic attack (TIA), and cerebral infarction without residual deficits; D64.9 Anemia, unspecified; F32.9 Major depressive disorder, single episode, unspecified; D63.8 Anemia in other chronic diseases classified elsewhere; Z95.4 Presence of other heart-valve replacement
CPT/HCPCS: 36415; 36569; 71045; 80053; 85025; U0002

== ENCOUNTER 2020-02-10 02:21 | Emergency (ER) | payer OTHER ==
--- OUTSIDE RECORDS SUMMARY | 2020-02-10 02:24 | XMS REPORT | Clinical Summary ---
:1930 Author Organization [facility] Address [address] [place] [address] Care Team Providers Name Role Phone Arias [...] Cardiology Sergio Ortiz MD Med Ref ill after 02/09/2019 Family History Medical History Relation Name Comments [...] travel history available. 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
--- OUTSIDE RECORDS SUMMARY | 2020-02-10 02:26 | XMS REPORT | Clinical Summary ---
:1930 Author Organization [facility] Address [address] [place] [address] Care Team Providers Name Role Phone Arias [...] tablet (1 mg total) by mouth daily. metoprolol TAKE 1 TABLET 0 06/20/2019 11/21/2019 Dis continued succinate BY MOUTH (TOPROL-XL) 25 MG DAILY 24 hr tablet furosemide (LASIX) 0 10/29/2019 11/23/2019 Discontinued 20 MG tablet clopidogreL Take 1 tablet 30 tablet 0 11/23/2019 01/10/2020 Ex pired (PLAVIX) 75 mg (75 mg total) tablet by mouth daily for 48 days. 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 Paroxysmal SVT (supraventricular tachycardia) 11/19/19 20 Severe aortic stenosis 11/09/2019 Squamous cell carcinoma of lung 11/02/2019 Hypertensive heart disease without heart failure 03/18 Resolved Problems Problem Noted Date Resolved Date Acute respiratory failure with hypoxia 11/19/2019 0 11/19/2019 Cardiogenic shock 11/02/2019 11/19/2019 Encounters Date Type Specialty Care Team Description 01/25/2020 Telephone Cardiology Duyen Carver Follow-up (s/p TAVR) CLIFFORD Carbajal 01/02/2020 Telephone Cardiology Gabriel Streeter MD 12/07/2019 Lab Requisition Lab 11/26/2019 Telephone Cardiology Gabriel Streeter MD 11/26/2019 Telephone Cardiology Gabriel Streeter MD 11/23/2019 Orders Only Cardiology Ferdinand S/p TAVR MD Gabriel (transcatheter aortic valve replacement), bioprosthetic (Primary Dx) 11/15/2019 Anesthesia Event Tate Pereira MD 11/15/2019 Surgery Alexander Munson MD TAVR / ROMARIO MCR - IP PROC ONLY 11/07/2019 Anesthesia Event Natalia Vaughan MD 11/07/2019 Anesthesia Event Roman Nguyen MD 11/07/2019 Surgery Luis Alberto Santiago, BRONCHOSCOP Y,ENDOBRO [facility]US[facility] TRANSTRA CH/ TRANSBRONCH MARTY PLING 11/05/2019 Surgery Ferdinand R & L CATH / MD Gabriel CORONARY ANGIOS (+/- LV) 11/03/2019 Travel 11/02/2019 - Hospital Encounter Cardiology Zenon Thompson shock (HCC) (Primary Dx); 11/23/2019 MD Maureen Acute on chronic congestive heart failur e, unspecified heart failure type (HCC); Ciara Posadas Acute respir atory failure with hypoxia (HCC); MD Leigh Cardiogenic shock (HCC); Ferdinand, Pneumonia of lenin th lungs due to infectious organism, unspecified part of lung; MD Gabriel Severe aortic stenosis; Tom Stokes MD Pneumonia of left upper lobe due to infe ctious organism; Mayela Field Shortness of breath; MD Malik Anxiety; Artem Goals of care, counseling/discussion; Beverly Palliative care by specialist; MD Rosa Gross hematuria ; Squamous cell c arcinoma of left lung (HCC); Pleural effusio n 11/02/2019 Orders Only General Internal Medicine 11/02/2019 Outside Orders Lab Abelardo Paz 11/02/2019 Travel after 02/09/2019 Social History Tobacco Use Types Packs/Day Years [...] 11/23/2019 6:31 AM CDT Plan of Treatment Health Maintenance Due Date Last Done Comments PNEUMOCOCCAL 65+ LOW/MEDIUM RISK (1 of 2 - PCV13) 1997 Medicare IPPE (WELCOME TO MEDICARE) 06/06/2019 INFLUENZA VACCINE (#1) 2020 Implants Implanted Type Area Etl Informatica Developer Device Identifier Shelf Model / Expiration Serial / Date Lot Pacemkr Sgl Micra Transcath [id number] - [id number] PACEMAKER / Left: [employer]:CARD [id number] 01/17/2021 [id number] / Implanted: Qty: 1 on 11/15/2019 by Alexander Munson MD ICD Heart RHY:PACING SYS [id number] / CHAMBER DEVICE Valve Heart Nic 3 26mm [id number] - [id number] Valves N/A: RANDHAWA LIFESCI 03/13/2021 [id number] / Implanted: Qty: 1 on 11/15/2019 by Alexander Munson MD Aorta [id number] / Procedures Procedure Name Priority Date/Time Associated Comments Diagnosis SARS-COV2/RT-PCR (HS Routine 12/06/2019 10:28 R esults for this & REF LABS) PM CDT procedure are i n the results section. ARRYTHMIA IMPLANT 11/27/2019 8:21 Result s for [...] proced ure are in the results section. HISTOPLASMA AB,ID Routine 11/03/2019 12:09 Result s for this PM CDT procedure are i n the results section. COCCIDIOIDES Routine 11/03/2019 12:09 Results for this ANTIBODIES PM CDT procedure are i n the results section. BLASTOMYCES ANTIBODY Routine 11/03/2019 12:09 Res ults for this PM CDT procedure are i n the results section. ASPERGILLUS Routine 11/03/2019 12:09 Results for this ANTIBODY,ID PM CDT procedure are i n the results section. FUNGAL PANEL Routine 11/03/2019 [...] are i n the results section. SARS-COV2/RT-PCR ([facility] STAT 11/02/2019 7:49 R esults for [...] re in the results section. RESPIRATORY PANEL [facility] STAT 11/02/2019 7:24 R esults for this PM CDT procedure are i n the results section. ECG 12-LEAD STAT 11/02/2019 7:05 Results for this PM CDT procedure are i n the results section. after 02/09/2019 Results SARS-CoV2/RT-PCR ([facility]) (12/06/2019 10:28 PM CDT)Only the most recent of2 resultswithin the time period is included. SARS-COV2/RT-PCR Detected (AA) Not Detected, Negative [facility] SARS-COV-2 PER[facility]ING [facility] Specimen Other Narrative Performed At Results are for the detection of SARS-CoV-2 [facility] RNA. The SARS-CoV-2 RNA is generally detectable in nasopharyngeal swab specimens during the acute phase of infection. Positive results are indicative of active infection with SARS-CoV-2; clinical correlation with patient history and other diagnostic information is necessary to determine patient infection status. Positive results do not rule out bacterial infection or co-infection with other viruses. The agent detected may not be the definite cause of disease. The limit of detection for this assay [...] the Act. Fact Sheet for Healthcare Providers: https://www.Categorical/Documents/Xpert%20Xpr ess%20SARS%20CoV-2/Fact%20Sheets/866-5502%20S ARS-COV-2%20HEALTHCARE%20PROVIDERS%20FACT%20S HEET.pdf Fact Sheet for Healthcare Patients: https://www.Categorical/Documents/Xpert%20Xpr ess%20SARS%20CoV-2/Fact%20Sheets/658-3801%20S ARS-COV-2%20PATIENT%20FACT%20SHEET.pdf Performing Laboratory: [facility] [address] [place] [address]. [place] [address] Performing Organization Address City/State/Zipcode Phone Number [address] [address] CENTER ARRYTHMIA IMPLANT REPORT - SCAN (11/27/2019 8:21 [...] Abdirashid Montes M.D. [facility] (electonic signature) [facility] Platelets 198 150 - 450 K/CU [facility] ALTH MM [facility] ER ADP 71 62 - 100 % [facility] Platelet Rich Plasma 268 200 - 300 k/cu [facility] Plt. Function Screen Normal aggregation [facility] Interpretation results with ADP. No [facility] evidence of platelet dysfunction or P2Y12 inhibitor effect. Specimen Blood Narrative Performed At Platelet Function Screen results may be [facility] falsely low with platelet counts <75,000/cu mm. Couture Dressmaker ID - [id number] Performing Organization Address City/State/Zipcode Phone Number [address] [address] CENTER Phosphorus (11/23/2019 4:50 AM CDT)Only the most recent of16 resultswithin the time period is included. Phosphorus 3.2 2.3 - 4.7 mg/dL [facility] Specimen Blood Narrative Performed At [employer] LISA Gregory [facility] Performing Organization Address [facility] Cent[facility] Phone Number [address] [address] [place] Magnesium (11/23/2019 4:50 AM CDT)Only the most recent of27 resultswithin the time period is included. Magnesium 2.1 1.6 - 2.6 mg/dL [facility] Specimen Blood Narrative Performed At [employer] [place] Aspen Gregory [facility] Performing Organization Address [facility] Centercooh Phone Number [address] [address] [place] Basic Metabolic Panel (11/23/2019 4:50 AM CDT)Only the most recent of27 results within the time period is included. Sodium 134 (L) 136 - 145 meq/L [facility] Potassium 3.4 (L) 3.5 - 5.1 meq/L [facility] Chloride 96 (L) 98 - 107 meq/L [facility] CO2 31 (H) 22 - 29 meq/L [facility] BUN 25 (H) 7 - 21 mg/dL [facility] Creatinine 0.92 0.57 - 1.25 mg/dL [facility] Glucose 104 70 - 105 mg/dL [facility] Calcium 8.3 (L) 8.4 - 10.2 mg/dL [facility] EGFR 78Comment: ESTIMATED GFR IS mL/min/1.73 sq m [facility] NOT ACCURATE CREATININE [facility] CLEARANCE IN PREDICTING GLOMERULAR FILTRATION RATE. ESTIMATED GFR IS NOT APPLICABLE FOR DIALYSIS PATIENTS. Specimen Blood Narrative Performed At [employer]maker ID - RUFUS Gregory [facility] Performing Organization Address City/State/Zipcode Phone Number [facility] MEDICAL [address] [place] [address] CENTER XR chest 1 view portable / bedside (11/22/2019 9:12 AM CDT)Only the most recent of21 resultswithin the time period is included. Specimen Narrative Performed At FINAL REPORT [facility] CLINICAL HISTORY: RLL Carcinoma, frequen t pleural effusion. TECHNIQUE: 1 view of the chest. COMPARISON: 11/21/2019 IMPRESSION: The right PICC line is unchanged. Right mid and lower lung pleural parenchymal opacity appears increased in prominence. The left lung remains well-aerated. The cardiomediasti nal silhouette is magnified by technique. Signed: Abdullahi Penn MD Report Verified Date/Time:11/22/2019 11:14:15 Reading Location: [employer] Reading Room Procedure Note Interface, External Ris [...] Verified Date/Time: 11/22/2019 1 1:14:15 Reading Location: [employer] Reading Room Performing Organization Address City/State/Zipcode Phone Number [facility] CBC with platelet count + automated diff (11/22/2019 4:23 AM CDT)Only the most recent of19 resultswithin the time period is included. WBC 14.1 (H) 3.5 - 10.5 K/L [facility] RBC 3.65 (L) 4.63 - 6.08 M/L [facility] Hemoglobin 10.4 (L) 13.7 - 17.5 GM/DL [facility] Hematocrit 32.7 (L) 40.1 - 51.0 % [facility] MCV 89.6 79.0 - 92.[address] [facility] MCH 28.5 25.7 - 32.[address] [facility] MCHC 31.8 (L) 32.3 - 36.5 GM/DL [facility] RDW 13.7 11.6 - 14.4 % [facility] Platelets 214 150 - 450 K/CU MM [facility] MPV 9.7 9.4 - 12.[address] [facility] nRBC 0 0 - 0 /100 [address] [facility] % Neutros 76 % [facility] % Lymphs 10 % [facility] % Monos 11 % [facility] % Eos 3 % [facility] % Baso 1 % [facility] # Neutros 10.70 (H) 1.78 - 5.38 K/L [facility] # Lymphs 1.34 1.32 - 3.57 K/L [facility] # Monos 1.48 (H) 0.30 - 0.82 K/L [facility] # Eos 0.37 0.04 - 0.54 K/L [facility] # Baso 0.09 (H) 0.01 - 0.08 K/L [facility] Immature 1 0 - 1 % [facility] Granulocytes-Relative MEDICAL CE NTER Specimen Blood Performing Organization Address City/State/Zipcode Phone Number [facility] MED[facility] [address] [place] [address] CENTER Limited 2D Echocardiogram (11/21/2019 10:16 AM CDT) Ejection Fraction [facility] ECHO HEAR TLAB MKCKESSON CPACS Specimen Narrative Performed At Transthoracic Echocardiography Report (T TE) [facility] ECHO HEARTLAB [facility] CPACS Demographics Patient NameSarai NUNEZ of Study11/21/2019 Male Visit [id number] Unknown Room [id number] Number Date of 2Referring Keyla Streeter MD Age 89 year(s)Chromosomal Disorders Counselor Abed Alfredo Commercial Litigation Attorney Valarie Liz, Interpreting Gabriel morales MD RDCSPhysicia n Procedure Type of Study TTE procedure:LIMITED 2D [...] Study 11/21/2019 Gende r Male Visit Number [id number] Race Unknown Room Number 1426 Number Date of 1930 Refer ring Physician Gabriel Streeter MD Age 89 year(s) 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 Abed Alfredo Commercial Litigation Attorney Valarie Liz, Inter preting Gabriel Streeter MD RDCS Physi sophie [...] TR Gradient: 19.88 mmHg Performing Organization Address City/[facility]/Zipcode Phone Number [facility] ECHO HEARTLAB [facility] CPACS Hemoglobin and hematocrit (11/18/2019 10:07 PM CDT)Only the most recent of4 resultswithin the time period is included. Hemoglobin 10.1 (L) 13.7 - 17.5 GM/DL [facility] Hematocrit 31.7 (L) 40.1 - 51.0 % [facility] Specimen Blood Narrative Performed At Couture Dressmaker ID - [id number] [facility]ENTER Performing Organization Address City/[facility]/Zipcode Phone Number [facility] [address] [place] [address] [place] Plasma free hemoglobin (11/17/2019 12:13 PM CDT) Hgb, Plasma 40.0 (H) 0.0 - 30.0 mg/dl [facility] Specimen Blood Performing Organization Address City/[facility]/Zipcode Phone Number [facility] [address] [place] [address] [place] TRANSFUSION SERVICE REPORT - SCAN (11/16/2019 6:02 PM CDT)Only the most recent of3 resultswithin the time period is included. Narrative Performed At This result has an attachment that is no t available. Cytology (11/16/2019 5:02 PM CDT)Only the most recent of3 resultswithin the time period is included. Case Report Medical Cytology Report Case: [id number] [facility] Authorizing Provider:Yoly Calderon NPCollected: 11/16/2019 05:02 PM [facility] Ordering Location: [place] [address] ccuReceived:11/19/2019 11:07 AM Pathologist: Tate Barksdale MD Specimen:Pleural, Right DIAGNOSIS PLEURAL, RIGHT, FLUID (CYTOSPINS AND CELL BLOCK) : [facility] - NEGATIVE FOR MALIGNANCY [facility] - Reactive mesothelial cells present Signing Pathologist Direct Phone Line: CPT Code(s) 76684, 57[address] [facility] CLINICAL DATA Right pleural effusion, [facility] of infiltrating 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 SPECIMEN SOURCE PLEURAL, RIGHT FLUID [facility] DESCRIPTION 1100 mls bri fluid; 4 cytospins, cell block [facility] Collected: [id number] [facility] MEDICAL CE NTER Received: [id number] STATEMENT OF ADEQUACY Satisfactory [facility] Gross assessment was [facility] performed at [place], Department of [facility] Pathology, [address] [place] [id number], Technical component was [facility] performed at [place], Department of [facility] Pathology, [address] [place] [phone], Professional component was [facility] performed at [place], Department of [facility] Pathology, [address] [place] [id number], Specimen Fine Needle Aspirate Narrative Performed At This result has an attachment that is no t available. Performing Organization Address City/State/Zipcode Phone Number [address] [phone] CENTER US thoracentesis (11/16/2019 5:00 PM CDT)Only the most recent of3 resultswithin the time period is included. Specimen Narrative Performed At FINAL REPORT [employer] Exam:Ultrasound guided thoracentesis Clinical History:Right-sided Pleural Effusion Sales Administrator: Viviane Hager PA-C Supervising Physician: Maureen Fan [...] MD Report Verified Date/Time:11/23/2019 17:34:12 Reading Location: [address] Reading Room Procedure Note Interface, External Ris In - 11/23/2019 5:36 PM CDT FINAL REPORT Exam: Ultrasound guided thoracentesis Clinical History: Right-sided Pleural E ffusion Sales Administrator: Viviane Hager PA-C Supervising Physician: Maureen Fan [...] Date/Time: 11/23/2019 1 7:34:12 Reading Location: [facility] [id number] [facility] Reading Room Performing Organization Address City/State/Zipcode Phone Number [facility] PT/aPTT (11/16/2019 11:45 AM CDT)Only the most recent of3 resultswithin the time period is included. Protime 15.7 (H) 11.9 - 14.2 seconds [facility] INR 1.3 <=5.9 [facility] PTT 37.0 (H) 22.5 - 36.0 seconds [facility] Specimen Blood Narrative Performed At Effective 11/01/2018: PT Reference Range [facility] Change New: 11.9-14.2Previous: 11.7-14.7 RECOMMENDED COUMADIN/WARFARIN INR THERAPY RANGES STANDARD DOSE: 2.0-3.0Includes: PROPHYLAXIS for venous thrombosis, systemic embolization; TREATMENT for venous thrombosis and/or pulmonary embolus. HIGH RISK: Target INR is 2.5-3.5 for patients wiht mechanical heart valves. Performing Organization Address City/[facility]/Zipcode Phone Number [address] [address] CENTER Prothrombin time/INR (11/16/2019 11:45 AM CDT)Only the most recent of3 results within the time period is included. Protime 15.7 (H) 11.9 - 14.2 seconds [facility] INR 1.3 <=5.9 [facility] Specimen Blood Narrative Performed At Effective 11/01/2018: PT Reference Range [facility] Change New: 11.9-14.2Previous: 11.7-14.7 RECOMMENDED COUMADIN/WARFARIN INR THERAPY RANGES STANDARD DOSE: 2.0-3.0Includes: PROPHYLAXIS for venous thrombosis, systemic embolization; TREATMENT for venous thrombosis and/or pulmonary embolus. HIGH RISK: Target INR is 2.5-3.5 for patients wiht mechanical heart valves. Performing Organization Address City/State/Zipcode Phone Number [facility] [address] [place] [address] CENTER 2D Echo W/Doppler(CW/PW/Color) (11/16/2019 10:23 AM CDT) Ejection Fraction [facility] ECHO HEAR TLAB [facility] Specimen Narrative Performed At Transthoracic Echocardiography Report (T TE) [facility] ECHO HEARTLAB [facility] CPA Demographics Patient NameUDOVICH,Date of Study 11/16/2019 ARTHUR Male Visit [id number] Unknown Room Number 6104 Number Date of 2Referring Physician ALEXANDER MUNSON Age 89 year(s)Chromosomal Disorders Counselor Britni Hernandezkadi [facility] Commercial Litigation Attorney Patrick Streeter MD Physician Procedure Type of [...] d. 4. Mild to moderate mitral regurgitation. Cepx-ov-lzmexmgn tricuspid regurgitation Previous Study In comparison with [...] Mild to moderate mitral re gurgitation. Tricuspid UwogvRrrp-gq-cpglluwm tricuspid regurgitation. Es timated peak systolic PA [...] Study 11/16/2019 ARTHUR Gender Male Visit Number [id number] Race Unknown [place] [address] Number Date of 1930 Referri von Physician ALEXANDER MUNSON Age 89 year(s) Sonogra pher Britni Melhem RDCS Commercial Litigation Attorney Patrick Wilson Interpr eting Gabriel Streeter MD Physici an [...] 4. Mild to moderate mitral regurgitatio n. Bhfy-rt-oqomzxwi tricuspid regurgitation Previous Study In comparison with [...] Mild to moderate mitral regurgitation. Tricuspid Valve Qvck-lu-dvhixgww tricuspid regurgitation. Estimated peak s ystolic PA [...] T CI: 2.92 l/min/m^2 Performing Organization Address City/[facility] Centercode Phone Number [facility] CPACS Reticulocyte count (11/16/2019 9:39 AM CDT) % Retic 1.6 0.5 - 1.8 % [facility] Specimen Blood Narrative Performed At C[employer]ure [employer]maker ID - [id number] [facility] Performing Organization Address [facility] Centercooh Phone Number [address] [address] CENTER Haptoglobin (11/16/2019 9:35 AM CDT) Haptoglobin 226 14 - 258 mg/dL [facility] Specimen Blood Narrative Performed At Couture [employer]maker ID - [id number] [facility] Performing Organization Address [facility] Phone Number [address] [address] [place] Blood gas, arterial (11/16/2019 4:30 AM CDT)Only the most recent of7 results within the time period is included. pH, Arterial 7.53 (H) 7.35 - 7.45 [facility] pCO2, Arterial 33 (L) 35 - 45 mmHg [facility] pO2, Arterial 180 (H) 80 - 90 mmHg [facility] O2 Sat, Arterial 99.4 (H) 96.0 - 97.0 % [facility] HCO3, Arterial 27 21 - 29 mmol/L [facility] Base Excess, Arterial 3.9 (H) -2.0 - 3.0 mmol/L [facility] Patient Temperature 37.0 C [facility] FIO2 40.0 % [facility] Specimen Blood, Arterial Performing Organization Address [facility] Centercode Phone Number [facility] [address] [place], [place] [phone] CENTER Lactate dehydrogenase (LDH) (11/16/2019 2:44 AM CDT) LDH 191 125 - 220 U/L [facility] Specimen Blood Narrative Performed At Couture [employer]maker ID - ALEX [facility] Performing Organization Address City/State/Zipcode Phone Number [facility] [address] [place] [address] [place] Comprehensive metabolic panel (11/15/2019 4:47 PM CDT)Only the most recent of2 resultswithin the time period is included. Protein, Total 5.5 (L)Comment: Specimen 6.0 - 8.3 gm/dL [facility] slightly hemolyzed [facility] C ENTER Albumin 2.4 (L)Comment: Specimen 3.5 - 5.0 g/dL [facility] slightly hemolyzed [facility] MED[facility] C ENTER Alkaline Phosphatase 54 40 - 150 U/L [facility] ER Total Bilirubin 0.8Comment: Specimen 0.2 - 1.2 mg/dL [facility] slightly hemolyzed [facility] Sodium 138 136 - 145 meq/L [facility] Potassium 3.5Comment: Specimen 3.5 - 5.1 meq/L [facility] slightly hemolyzed [facility] Chloride 103 98 - 107 meq/L [facility] CO2 25 22 - 29 meq/L [facility] BUN 17 7 - 21 mg/dL [facility] Creatinine 1.03Comment: Specimen 0.57 - 1.25 mg/dL [facility] slightly hemolyzed [facility] Glucose 164 (H) 70 - 105 mg/dL [facility] Calcium 8.4 8.4 - 10.2 mg/dL [facility] AST 19Comment: Specimen 5 - 34 U/L [facility] slightly hemolyzed [facility] C ENTER ALT 14Comment: Specimen 6 - 55 U/L [facility] slightly hemolyzed [facility] C ENTER EGFR 68Comment: ESTIMATED GFR mL/min/1.73 sq m [facility] IS NOT ACCURATE [facility] CREATININE CLEARANCE IN PREDICTING GLOMERULAR FILTRATION RATE. ESTIMATED GFR IS NOT APPLICABLE FOR DIALYSIS PATIENTS. Specimen Blood Narrative Performed At Couture Dressmaker ID - BS [facility] Performing Organization Address City/[facility] Centercode Phone Number [address] [address] CENTER Prepare RBC (11/15/2019 4:14 PM CDT) CROSSMATCH COMPATIBLE SAFETRACE TX Unit ABO A Pos SAFETRACE TX UNIT NUMBER [id number] SAFETRACE TX Status RETURNED FROM ISSUE SAFETRACE TX Blood Bank Product RED BLOOD CELLS SAFETRACE TX PRODUCT CODE [id number] SAFETRACE TX CROSSMATCH COMPATIBLE SAFETRACE TX Unit ABO A Pos SAFETRACE TX UNIT NUMBER [id number] SAFETRACE TX Status RETURNED FROM ISSUE SAFETRACE TX Blood Bank Product RED BLOOD CELLS SAFETRACE TX PRODUCT CODE [id number] SAFETRACE TX Performing Organization Address [facility] Phone Number SAFETRACE TX POC ACTIVATED CLOTTING TIME (11/15/2019 1:54 PM CDT) Activated Clotting Time 252Comment: : 74-137 sec [facility] seconds, Baseline: TESTED [facility] AT [address], [address]: Couture Dressmaker/Lumber Carrier Operator ID = [id number] for JOLYNN KRAFT Specimen Blood Performing Organization Address [facility]/Zipcode Phone Number [address] [address] CENTER Potassium-Stat Lab (11/15/2019 1:28 PM CDT) Potassium 3.6 3.6 - 5.5 meq/L [facility] Specimen Blood, Arterial Performing Organization Address City/[facility] Centercooh Phone Number [address] [address] [place] Sodium Na-Stat Lab (11/15/2019 1:28 PM CDT) Sodium 133 (L) 136 - 145 meq/L [facility] Specimen Blood, Arterial Performing Organization Address City/[facility] Phone Number [address] [address] [place] Glucose-Stat Lab (11/15/2019 1:28 PM CDT) Glucose 113 (H) 70 - 110 mg/dL [facility] Specimen Blood, Arterial Performing Organization Address [facility] Phone Number [address] [address] [place] HGB/HCT (H&H)-Stat Lab (11/15/2019 1:28 PM CDT) Hemoglobin 11.4 (L) 13.0 - 16.8 g/dL [facility] Hematocrit 34.0 (L) 40.0 - 50.0 % [facility] Specimen Blood, Arterial Performing Organization Address [facility] Phone Number [address] [address] [place] Calcium, Ionized (11/15/2019 1:28 PM CDT)Only the most recent of2 resultswithin the time period is included. Calcium, Ion 1.10 (L) 1.12 - 1.27 mmol/L [facility] pH, Blood 7.52 [facility] Specimen Blood Performing Organization Address [facility] Phone Number [address] [address] [place] POC-Glucose meter (11/15/2019 11:59 AM CDT)Only the most recent of21 results within the time period is included. POC-Glucose Meter 116 (H)Comment: : TESTED 70 - 110 mg/dL [facility] Mireya [facility]ENTERWowcracyRESEARCH [facility] [address] [facility], [address]: Couture Dressmaker/Lumber Carrier Operator ID = [id number] for DEBORAH SANDRA Specimen Blood Performing Organization Address City/State/Zipcode Phone Number [address] [phone] CENTER Transesophageal echo (11/15/2019 10:49 AM CDT) Ejection Fraction [facility] ECHO HEAR TLAB MKCKESSON CPACS Specimen Narrative Performed At Transesophageal Echocardiography Report (MAKAYLA) [facility] ECHO HEARTLAB MKCKESSON CPA Demographics Patient NameUDOVICH,Date of Study 11/15/2019 ARTHUR Male Visit [id number] Unknown Room Number 6104 Number Date of 2Referring Physician Gabriel Streeter MD Age 89 year(s)Chromosomal Disorders Counselor [facility] Angel Luis Streeter MD Physician Procedure Type of Study [...] effusion. Signature Findings Rhythm/BP Interventional MAKAYLA (cpt 06131) for guidance of percutaneous intracardiac procedure. 3D imaging (cpt 52587) rendering with interpretation was performed. LeftThe left [...] Study 11/15/2019 ARTHUR Gender Male Visit Number [id number] Race Unknown [place] [id number] Number Date of 1930 Referri Physician Gabriel Streeter MD Age 89 year(s) Archana Goodman RUST Angel Luis Interca eting Gabriel Streeter MD Physici an Procedure [...] Signature Findings Rhythm/BP Interventional MAKAYLA (cpt 9 3355) for guidance of percutaneous intracardiac procedure. 3D imaging (cpt 08883) re ndering with interpretation was performed. Left [...] based on available views. Performing Organization Address City/State/Zipcode Phone Number [facility] ECHO HEARTLAB MKCKESSON CPACS aPTT (11/15/2019 3:26 AM CDT)Only the most recent of14 resultswithin the time period is included. PTT 79.3 (H) 22.5 - 36.0 seconds [facility] Specimen Blood Performing Organization Address City/[facility]/Zipcode Phone Number [address] [address] CENTER Blood culture (11/13/2019 4:08 PM CDT)Only the most recent of4 resultswithin the time period is included. Result No growth in 5 days [facility] Specimen Blood Performing Organization Address [facility] Centercooh Phone Number [address] [address] [place] Urinalysis w/Microscopic + Reflex to Culture (11/13/2019 12:05 PM CDT)Only the most recent of2 resultswithin the time period is included. Color, UA Light Yellow [facility] Clarity, UA Clear [facility] Specific Portal, UA 1.014 1.001 - 1.035 [facility] pH, UA 6.5 5.0 - 8.0 [facility] Protein, UA Negative Negative [facility] Glucose, UA Negative Negative [facility] Ketones, UA Negative Negative [facility] Bilirubin, UA Negative Negative [facility] Blood, UA Negative Negative [facility] Nitrite, UA Negative Negative [facility] Leukocytes, UA Negative Negative [facility] Urobilinogen, UA 0.2 0.2 - 1.0 mg/dL [facility]ALTH [facility] RBC, UA 1 /HPF [facility] WBC, UA 1 /HPF [facility] Squam Epithel, UA <1 /HPF [facility] Hyaline Casts, UA 1 /LPF [facility] Yeast Rare [facility] Specimen Source [facility] Specimen Urine Narrative Performed At Couture Dressmaker ID - [auto] [facility] Couture Dressmaker ID - tech Performing Organization Address [facility] Medical Centercode Phone Number [address] [address] CENTER Type and screen, automated (11/13/2019 11:04 AM CDT)Only the most recent of2 resultswithin the time period is included. ABO/RH AUTOMATED (BEAKER) A POSITIVE [facility] Ab Scrn NEGATIVE [facility] Specimen Blood Performing Organization Address City/[facility] Medical Centercode Phone Number [address] [address] Hepatic function panel (11/13/2019 4:34 AM CDT)Only the most recent of4 results within the time period is included. Protein, Total 5.4 (L) 6.0 - 8.3 gm/dL [facility] Albumin 2.5 (L) 3.5 - 5.0 g/dL [facility] Total Bilirubin 0.9 0.2 - 1.2 mg/dL [facility] Bilirubin, Direct 0.5 0.1 - 0.5 mg/dL [facility] Alkaline Phosphatase 54 40 - 150 U/L [facility] AST 15 5 - 34 U/L [facility] ALT 17 6 - 55 U/L [facility] Specimen Blood Narrative Performed At Couture Dressmaker ID - RUFUS M [facility] Performing Organization Address City/State/Zipcode Phone Number [facility] [address] [place] [address] [place] Body fluid cell count with differential (11/11/2019 1:09 PM CDT) Appearance Cloudy (A) Clear [facility] Color Yellow (A) Colorless, Straw [facility] RBCs 6,000 (H) <=1 /cu mm [facility] Adjusted WBC Count 1,392 (H) <=5 /cu mm [facility] Lining Cells 0 <=1 /cu mm [facility] % Segs 37 % [facility] % Lymphs 44 % [facility] % Monos 19 % [facility] % Eos 0 % [facility] % Baso 0 % [facility] Container Body Fluid Sterile Vial [facility] Specimen Body Fluid Performing Organization Address City/[facility]/Zipcode Phone Number [place] [phone] [place] [address] [place] Potassium (11/10/2019 10:34 AM CDT) Potassium 3.5 3.5 - 5.1 meq/L [facility] Specimen Blood Narrative Performed At Couture Dressmaker ID - DONNA Jacobsen [facility] Performing Organization Address City/State/Zipcode Phone Number [address] [address] [place] INTRAOPERATIVE PATH REPORT - SCAN (11/09/2019 3:11 PM CDT) Narrative Performed At This result has an attachment that is no t available. Oxygen saturation, measured (11/08/2019 9:46 PM CDT) O2 Saturation (Measured) 64.5 % [facility] Specimen Blood Performing Organization Address [facility]/Zipcode Phone Number [facility] [address] [place] [phone] CENTER Lactic acid, venous (11/08/2019 9:46 PM CDT)Only the most recent of3 results within the time period is included. Lactate, Venous 0.96 0.50 - 2.20 mmol/L [facility] Specimen Blood Narrative Performed At Couture Dressmaker ID - BS [facility] Performing Organization Address [facility]/Zipcode Phone Number [address] [address] [place] PULMONARY FUNCTION - SCAN (11/08/2019 2:30 PM [...] period is included. Cytology See Separate Report [facility] Specimen EBUS Fine Needle Aspirate - Lymph Node, Lower Paratracheal, Left, Station 4L Performing Organization Address City/[facility] Centercooh Phone Number [facility] [address] [place] [address] [place] Fine Needle Aspiration by EBUS (11/07/2019 4:11 PM CDT)Only the most recent of3 resultswithin the time period is included. Case Report Medical Cytology Report Case: [id number] [facility] Authorizing Provider:Luis Alberto Zayas, MDCollected: 11/07/2019 04:11 PM [facility] Ordering Location: [place] [address] CCUReceived:11/07/2019 05:12 PM Pathologist: Berenice Eng MD Specimen:Lymph Node, Subcarinal, Station 7 DIAGNOSIS LYMPH NODE, SUBCARINAL, STAT ION 7, FNA BY CLINICIAN (CYTOSPINS AND CELL BLOCK OF ASPIRATE): [facility] CENTERWowcracyMireya [facility] - SATISFACTORY FOR EVALUATION [facility] - NEGATIVE FOR METASTATIC MALIGNANT CELLS - EVIDENCE OF LYMPH NODE SAMPLING ([place] US LYMPHOID TISSUE PRESENT) Signing Pathologist Direct Phone Line: [phone] [facility] Please also see surgical pat hology report [id number] and cytopathology reports [id number] and [id number]. [facility] CPT Code(s) 88490, [address] [facility] CLINICAL DATA Right lower lobe mass, [facility] mediastinal adenopathy, [facility] abnormal CT scan of chest SPECIMEN SOURCE LYMPH NODE, SUBCARINAL, STATION [facility] 7 FNA [facility] GROSS DESCRIPTION Received 35 ml cytorich red fixative sample; prepared cell block(A2) and 2 cytospins [facility] Collected: [id number] [facility] NTER Received: [id number] MICROSCOPIC DESCRIPTION Performed. [facility] SPECIAL STUDIES The interpretation of this c ase included the use of immunohistochemistry or special stains. [facility] Control Slides Examined: In -house known positive controls were evaluated along with the test tissue. These control slides run alongside of the patients sample show appropriate staining. Internal posit radha and negative controls when available are rositafernando hendrix Immunohistochemistry technic al testing was performed at [facility], Pathology Laboratory where it was developed and its performance characteristics were determined. It has not be en cleared or approved by [facility] U.S. Food and Drug Administration. The FDA has determined that such clearance or approval is not necessary. The test is used for clinical purposes. It should not be regarde d as investigational or for research. This laboratory is certified under the Clinical Laboratory Improvement Amendments of 1988 (CLIA-88) as qualified to perform high complexity clinical laboratory testing. Gross assessment was [facility] performed at [place], Department of [facility] MEDICA [facility] Pathology, [address] [place] [address], [facility] [place] [address], Technical component was [facility] performed at [place], Department of [facility] MEDICA L [place] Pathology, [address] [facility], [place] [address], Professional component [facility] was performed at [place], Department of [facility] MEDIC AL [place] Pathology, [address] [place] [address], Specimen EBUS Fine Needle Aspirate - Lymph Node, Subcarinal, Station 7 Narrative Performed At This result has an attachment that is no t available. Performing Organization Address City/State/Zipcode Phone Number [facility] [address] [place] [address] CENTER Tissue Exam (11/07/2019 3:42 PM CDT) Case Report Surgical Pathology Report Case: [id number] [facility] Authorizing Provider:Luis Alberto Zayas MDCollected: 11/07/2019 03:42 PM [facility] Ordering Location: [place] [address] CCUReceived:11/07/2019 03:49 PM [place] Pathologist: Lala Jimenez MD Specimens: A) - Lung, Ri ght Lower Lobe, Right lower lobe endobronchial tissue B) - Lung, Right Lower Lobe, TBBX. Process in Cytology for Collodion Bag, Reflex Gen etic Markers. ADDENDUM 3 THIS ADDENDUM IS ISSUED TO R EPORT THE RESULT OF EGFR MUTATION , ON BLOCK B1, AT [facility] LAB[facility]ATORIES: [facility] - NOT DETECTED CENTER Please refer to the scanned report for additiona l information ADDENDUM 2 This addendum is issued to r eport the result of BRAF mutation on block B1. The test was done at [facility] LABORATORIES: [facility] - BRAF Mutation: Not detected [facility] Please refer to the scanned report for evaluatio n ADDENDUM THIS ADDENDUM IS ISSUED TO R EPORT THE RESULTS OF BIOMARKER STUDIES, ON SPECIMEN B1: [facility] - ALK Rearrangement: Not Detected [facility] - ROS Gene Rearrangement: Not Detected (Negativ e) [place] - PD-L1 22C3 FDA (KEYTRUDA) for NSCLC : EXPRESSED. Tumor proportion score:1%, Intensity: 1% Please refer to the scanned report for additiona l information The test was done at [employer] DIAGNOSIS A. LUNG, RIGHT LOWER LOBE, ENDOBRONCHIAL BIOPSY: [facility] - POSITIVE FOR MALIGNANCY (SEE COMMENT [facility] B. 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 The frozen section shows rare clusters of malignant cells in a background of necrosis and inflammation. Malignant cells are not represented adequately on the permanent section for further characterization. [facility] B. The neoplastic cells are positive for N65-lgeypaga and negative for TTF-1. 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 CENTER netic markers are being done at [facility] [employer]. Report will follow CPT Code(s) 15216f7, 93377z1, 31047w6, [facility] [id number] [facility] CL[facility]ICAL HISTORY Necrotizing pneumonia; lung [facility] SPECIMEN SOURCE A. Right lower lobe endobronchial tissue [facility] B. Lung, Right lower lobe transbronchial biopsy [facility] GROSS DESCRIPTION Specimen A is labeled "lung, right lower lobe". Received fresh for intraoperative consultation are three tiny fragments of tate-brown tissue measuring 0.3 cm each. The specimen is entirely submitted for frozen in cassette A1. SW/pl [facility] Specimen B: The specimen is received [...] RIGHT LOWER LOBE, ENDOBRONCHIAL TISSUE, B IOPSY: [facility] CONSULTATION - POSITIVE FOR MALIGNANCY IN A BACKGROUND OF INFLAMMATION AND NECROSIS [facility] Reported by Dr. Jimenez, pathologist [id number] at 4 :02 p.m. MICROSCOPIC DESCRIPTION A-B: Performed [facility] SPECIAL STUDIES The interpretation of this c ase included the use of immunohistochemistry or special stains. [facility] TTF-1; [id number] [facility] ED[facility] Control Slides Examined: In -house known positive controls were evaluated along with the test tissue. These control slides run alongside of the patients sample show appropriate staining. Internal posit CENTE R radha and negative controls when available are rosita hendrix Immunohistochemistry technic al testing was performed at [facility], Pathology Laboratory where it was developed and its performance characteristics were determined. It has not be en cleared or approved by [facility] U.S. Food and Drug Administration. The FDA has determined that such clearance or approval is not necessary. The test is used for clinical purposes. It should not be regarde d as investigational or for research. This laboratory is certified under the Clinical Laboratory Improvement Amendments of 1988 (CLIA-88) as qualified to perform high complexity clinical laboratory testing. Gross assessment was [facility] performed at [facility] MEDICAL Pathology, [address] [place] [address], Technical component was [facility] performed at [facility] MEDICAL Pathology, [address] [place] [address], Professional component [facility] was performed at [facility], [address] [place] [address], Specimen Tissue Tissue - Structure of lower lobe of righ t lung (body structure) Narrative Performed At This result has an attachment that is no t available. Performing Organization Address City/State/Zipcode Phone Number [facility] MEDICAL [address] [place] [address] CENTER ABORH, manual (11/07/2019 8:19 AM CDT) ABO Grouping A [facility] Rh Factor POS [facility] Specimen Blood Performing Organization Address City/State/Zipcode Phone Number [facility] [address] [place] [address] CBC (hemogram only) (11/07/2019 5:26 AM CDT)Only the most recent of5 results within the time period is included. WBC 13.8 (H) 3.5 - 10.5 K/L [facility] RBC 3.97 (L) 4.63 - 6.08 M/L [facility] Hemoglobin 11.8 (L) 13.7 - 17.5 GM/DL [facility] Hematocrit 36.2 (L) 40.1 - 51.0 % [facility] MCV 91.2 79.0 - 92.2 fL [facility] MCH 29.7 25.7 - 32.2 pg [facility] MCHC 32.6 32.3 - 36.5 GM/DL [facility] RDW 13.9 11.6 - 14.4 % [facility] Platelets 175 150 - 450 K/CU MM [facility] MPV 9.6 9.4 - 12.4 fL [facility] nRBC 0 0 - 0 /100 WBC [facility] Specimen Blood Performing Organization Address City/State/Zipcode Phone Number [facility] [address] [place] [address] chest without IV contrast (11/06/2019 4:11 PM CDT) Specimen Narrative Performed At FINAL REPORT UNI5 CT of the Chest dated 11/06/2019 COMPARISON: [...] Report Verified Date/Time:11/06/2019 17:38:38 Reading Location: [facility] C013Y CT Body R [facility] Procedure Note Interface, External Ris In - [...] Verified Date/Time: 11/06/2019 1 7:38:38 Reading Location: [facility] C013Y CT Body R eading Room Performing Organization Address City/State/Zipcode Phone Number GE [facility]IS Pulmonary Funct Lab Spirometry (11/06/2019 2:45 PM CDT) Narrative Performed At Tosin Chavez, [facility] 0203:[address] [facility] PFT CHARTING REPORT Infection Control/Hand Hygiene procedure s followed throughout the encounter with patient: Yes Patient Identification Method: Patient n asa verified on armband, and Medical record on armband, Is the order complete?: Yes Account ID#: [id number] Patient Name: Arthur Nunez Birthdate: 1930 Age: [...] Tr 23.1 (H) 10.0 - 20.0 ug/mL [facility] Specimen Blood Narrative Performed At Couture Dressmaker ID - PIAYA L [facility] Performing Organization Address City/State/Zipcode Phone Number [facility] [address] [place] [address] brain without IV contrast (11/05/2019 11:18 PM CDT) Specimen Narrative Performed At FINAL REPORT UNI5 EXAM: CT head without contrast. CLINICAL HISTORY: [...] 3:24:44 Performing Organization Address City/State/Zipcode Phone Number RIS EKG-SCANNED (11/05/2019 3:50 PM CDT) Narrative Performed At This result has an attachment that is no t available. Carotid doppler bilateral (11/05/2019 12:38 PM CDT) Ejection Fraction [facility] ECHO HEAR TLAB MKCKESSON CPACS Specimen Impressions Performed At Right [facility] [facility]ART[facility] MKCKESSON CPACS 1. There is [...] Performed At LAB - Carotid Duplex Study [facility] ECHO HEARTLAB MKCKESSON [facility] Demographics Patient NameARTHUR NUNEZDate of Study 11/05/2019 89 Visit [id number] Male of 1930 Referring Gabriel Streeter,Room Number 6 210 Physician Chromosomal Disorders Counselor Philipp Martinez [facility] Elio recio, [facility] Physician Procedure Type of Study: Cerebral: Carotid, CAROTID [...] of Study 11/05/2019 Age 89 Visit Number [id number] Gen jin Male Accession Number [id number] Thomas e of 1930 Referring Florinda Tran Number 6210 Physician Chromosomal Disorders Counselor Philipp Martinez Int erpreting Reshma Bal, T [...] Measurements:ICAPSV/CCAPS V 0.77.ICAEDV/CCAEDV 1.1. Performing Organization Address City/[facility] Cent[facility] Phone Number [facility] E[facility] HEARTLAB MKCKESSON CPACS Lactate Dehydrogenase (LD), Pleural Fluid (11/03/2019 7:12 PM CDT) Lactate Dehydrogenase 102 See Note: U/L [facility] (LD), Pleural Fluid Comment: INCORPORATED Reference Range: TRANSUDATE:<113 EXUDATE: >113 Specimen Body Fluid Narrative Performed At Performing Lab [facility] [employer]Z [employer] [address] [place] [address] Clarissa Zavala MD, PhD, SHELLIE Performing Organization Address [facility] Phone Number [facility] [place] [address] [facility] Glucose Pleural Fluid (11/03/2019 4:44 PM CDT) Glucose, Pleural Fluid 131 mg/dL [facility] Comment: INCORPORATED Reference range approximates that found in serum . Specimen Body Fluid Narrative Performed At Performing Lab [facility] [employer] [address] [place] [address] Clarissa Zavala MD, PhD, SHELLIE Performing Organization Address [facility] Phone [place] [address] [facility] Body fluid culture + gram stain (11/03/2019 4:44 PM CDT) Result No growth [facility] Gram Stain Result 4+ WBCs [facility] Gram Stain Result No organisms seen [facility] Specimen Body Fluid Performing Organization Address City/[facility]/Zipcode Phone Number [address] [address] [place] Fungus culture + smear (11/03/2019 4:44 PM CDT) Result No fungus isolated in 28 days [facility] Fungus Smear No fungi seen [facility] Specimen Body Fluid Performing Organization Address City/[facility]/Zipcode Phone Number [address] [address] [place] Protein, Total, Pleural Fluid (11/03/2019 4:43 PM CDT) PROTEIN, TOTAL, PLEURAL FLUID 2.4 g/dL [facility] Specimen Body Fluid Performing Organization Address [facility] Centercode Phone Number [address] [address] [place] MRSA screen (11/03/2019 12:14 PM CDT) Result No MRSA isolated [facility] Specimen Nasal Performing Organization Address [facility] Centercode Phone Number [address] [address] [place] Aspergillus galactomannan antigen (11/03/2019 12:10 PM CDT) Aspergillus Index Value <0.50 [facility] Aspergillus Antigen NOT DETECTED [facility] Comment: INCORPORATED REFERENCE RANGE: <0.50, NOT DETECTED A negative result does not exclude invasive aspergillosis. Follow-up testing may be indicate d for high-risk patients. Specimen Blood Narrative Performed At Performing Lab [facility] *QDID [facility] [address] [place] [address] Nivia Rodriguez MD Performing Organization Address City/[facility] Centercode Phone Number [facility] [place] [address] [place] [address] Aspergillus Antibody,ID (11/03/2019 12:09 PM CDT) Aspergillus flavus Ab Negative Negative [facility] Aspergillus niger Ab Negative Negative [facility] ASPERGILLUS FUMIGATUS Negative Negative [facility] AB Comment: INCORPORATED Interpretive Criteria: Negative: Antibody not detected Positive: Antibody detected A positive result is represented by 1 or more precipitin bands, and may indicate fungus ball, allergic bronchopulmonary aspergillosis (MAY) or invasive aspergillosis. Generally, the appearanc e of 3-4 bands indicates either fungus ball or MAY . Specimen Blood Narrative Performed At SEE ALSO #[id number] [facility] Performing Lab 15 [facility], [address] [place] [address] [place] [address] Sridhar Wiseman MD, PhD Performing Organization Address [facility] Medical Centercooh Phone Number [place] [address] [address] [facility] HISTOPLASMA AB,ID (11/03/2019 12:09 PM CDT) Histoplasma Ab,Id NEGATIVE [facility] Comment: INCORPORATED REFERENCE RANGE:NEGATIVE INTERPRETIVE CRITERIA: NEGATIVE: Antibody Not Detected POSITIVE: Antibody Detected Positive immunodiffusion (ID) reactions involve one or more specific precipitin bands.Of the se bands the first to appear in active histoplasmos is is the "M" band, which is seen in approximately 70% of proven cases. This band is also seen in some patients with past infections and in 20% of those with recent histoplasmin skin testing. The "H" band is usually seen in active and progressi ve histoplasmosis and almost always in the presence of the "M" band, although it is found less often (approx. 10% of proven cases.) Specimen Blood Narrative Performed At SEE ALSO #[id number] [facility] Performing Lab *QDID [employer] [employer] [address] [place] [address] Nivia Rodriguez MD Performing Organization Address [facility] Medical Centercode Phone [place] [address] [address] [facility] Fungal Panel (11/03/2019 12:09 PM CDT) Fungal Panel1 Refer to individual [facility] Aspergillus, Blastomyces, Coccidioides & Histoplasma Ab results. Specimen Blood Performing Organization Address [facility] Centercode Phone Number [facility] [place] [address] [address] [facility] Coccidioides antibodies (11/03/2019 12:09 PM CDT) Coccidioides Ab,Id NEGATIVE [facility] Comment: INCORPORATED REFERENCE RANGE:NEGATIVE INTERPRETIVE CRITERIA: NEGATIVE: Antibody Not Detected POSITIVE: Antibody Detected The immunodiffusion (ID) procedure correlates lenin th in sensitivity and clinical utility with the CF test. The ID test, which detects IgG directed to the "F" antigen, becomes positive within 4 weeks after infection and remains positive throughout clinically active disease. It is most useful in confirming the specificity of low CF titers, whe re line(s) of identity are formed with reference antisera. Positive ID reactions are diagnostic f or coccidioidomycosis and usually indicate active o r recent disease and remain detectable for up to 1 year thereafter. Specimen Blood Narrative Performed At SEE ALSO #[id number] [facility] Performing Lab *QDID [employer] Infectious Di [employer]. [address] [place] [address] Nivia Rodriguez MD Performing Organization Address [facility] Centercode Phone Number [facility] [place] [address] [address] [facility] Blastomyces antibody (11/03/2019 12:09 PM CDT) Blastomyces Ab,Id Negative [facility] Comment: Test Not Performed. Due to technical issues with this assay we are unable to perform the test ordered at our [facility] site. Your sample has been sent to our [place], [place] laboratory for te sting. We will communicate when the problem has been resolved and testing h as been resumed at [place]. This is a corrected result. Previous result was TNP on 12/18/2019 at 0817 CDT Specimen Blood Narrative Performed At This result has an attachment that is no t available. SEE ALSO #[id number] [facility] Performing Lab *QDID [employer] [address] [place] [address] Nivia Rodriguez MD Performing Organization Address City/State/Zipcode Phone Number [facility], [place] [address] [facility] fungitel (11/03/2019 12:07 PM CDT) Scan Result <31 [facility] Specimen Blood Narrative Performed At This result has an attachment that is no t available. Performing Organization Address City/State/Zipcode Phone Number [facility] [address] [facility], [place] Strep pneumoniae antigen (11/03/2019 9:58 AM CDT) Strep pneumoniae Presumptive negative Presumptive negative [facility] Antigen for pneumococcal for pneumococcal [facility] pneumonia - see comment pneumonia - see CENTER comment, Presumptive negative for pneumococcal meningitis - see comment Specimen Urine Narrative Performed At Presumptive negative for pneumococcal [facility] pneumonia, suggesting no current or recent pneumococcal infection. Infection due to S. pneumoniae cannot be ruled out since the antigen present in the sample may be below the detection limit of the test. Performing Organization Address City/State/Zipcode Phone Number [place] [phone] [place] [address] CENTER Legionella antigen, urine (11/03/2019 9:57 AM CDT) Legionella Urine Antigen Negative - see [facility] commentComment: Negative [facility] for L. pneumophila serogroup 1 antigen, suggesting no recent or current infection with this serogroup. Legionellosis cannot be ruled out since other serogroups and species may cause disease. Specimen Urine - Urine, Sterile Collection Performing Organization Address City/State/Zipcode Phone Number [place] [phone] [place] [address] CENTER Histoplasma antigen, urine (11/03/2019 9:15 AM CDT) [...] test should be used in conjunction with [facility] er diagnostics tests, including culture, molecular assays, and histology in making a final diagnosi s. Specimen Urine Narrative Performed At Performing Lab [facility] *QDID [employer] Infectious Di [facility] [address] [place] [address] Nivia Rodriguez MD Performing Organization Address City/State/Zipcode Phone Number [facility] [place] [address] [facility] Procalcitonin (11/03/2019 8:46 AM CDT) Procalcitonin 1.00 (H) <0.05 ng/mL [facility] Specimen Blood Narrative Performed At SEPSIS RISK (ng/mL) [facility] Low:0.05-0.50 Intermediate: 0.51-2.00 High: >=2.01 Performing Organization Address [facility] Phone Number [address] [address] CENTER Cortisol (11/03/2019 8:46 AM CDT) Cortisol, Total 21.3 (H) 3.7 - 19.4 ug/dL [facility] Specimen Blood Narrative Performed At [employer] LISA Tejeda [facility] Performing Organization Address City/[facility]/Zipcode Phone Number [address] [address] CENTER TSH/Free T4 If Indicated (11/03/2019 8:46 AM CDT) TSH 0.325 (L) 0.350 - 4.940 uIU/mL [facility] Specimen Blood Narrative Performed At [employer] LISA Louise LM [facility] Performing Organization Address City/State/Zipcode Phone Number [address] [address] CENTER T4, free (11/03/2019 8:46 AM CDT) Free T4 0.71 0.70 - 1.48 ng/dL [facility] Specimen Blood Narrative Performed At [employer] ID - LM [facility] Performing Organization Address City/[facility]/Zipcode Phone Number [address] [address] CENTER Hemoglobin A1c (11/03/2019 8:46 AM CDT) Hemoglobin A1C 5.4 4.3 - 6.1 % [facility] Specimen Blood Performing Organization Address [facility]/Zipcode Phone Number [address] [address] [place] Troponin I (11/03/2019 1:24 AM CDT)Only the most recent of3 resultswithin the time period is included. Troponin I 0.58 (HH) 0.00 - 0.03 ng/mL [facility] Specimen Blood Narrative Performed At Troponin I (TnI) levels must be interpreted [facility] in the context of the presenting symptoms and the clinical findings. Elevated TnI levels indicate myocardial damage, but are not specific for ischemic heart disease. Elevated TnI levels are seen in patients with other cardiac conditions (including myocarditis and congestive heart failure), and slight TnI elevations occur in patients with other conditions, including sepsis, renal failure, acidosis, acute neurological disease, and persistent tachyarrhythmia. [employer] ID - PIAYA L Performing Organization Address [facility]/Zipcode Phone Number [address] [address] CENTER Venous doppler legs bilateral (11/03/2019 1:04 AM CDT) Ejection Fraction [facility] ECHO HEAR TLAB MKCKESSON CPACS Specimen Impressions Performed At Right Impression [facility] ECHO HEARTLAB MKCKESSON CPACS 1. There is [...] At LAB - Lower Extremities DVT Study [facility] ECHO HEARTLAB CKESSON [facility] Demographics Patient Name Opal NUNEZte of Study11/03/2019 [id number] Age10 7 Visit Number [id number] Male Accession Number [id number] of Birth1930 [facility] Room Number 7942 MD Joesph SonographViviana Escobar [facility] Interpreting Physician DHEERAJ Russo Procedure Type of Study: Veins: Lower Extremities [...] DVT Study Demographics Patient Name ARTHUR NUNEZ te of Study 11/03/2019 Ag e 89 Visit Number [id number] Javier soliz Male Accession Number [id number] Da te of 1930 Referring Ciara Ward om Number 6210 Physician MD [place] Chromosomal Disorders Counselor Eloise Escobar T In terpreting Reshma Bal, [...] Address City/State/Zipcode Phone Number [facility] ECHO HEARTLAB MKCKESSIDRIS CPACS CTA chest (11/03/2019 12:30 AM CDT) Specimen Narrative Performed At Addendum Begins [employer] RUST REPORT STATUS:A I agree with the nonvascular [...] MD Report Verified Date/Time:11/05/2019 11:32:40 [place] Location: [address] Radiolog y Reading Room Addendum Ends [...] the contrast sheet scann ed in the Jack Erwin system for the amount and route of [...] For reference purpose, per Kathy Edge br ochrajiv, recommendation are as follows: 23mm valve is [...] regar ding the non-vascular findings by the Machinist First Class Radiologist. Signed: Gaudencio Valencia MD Report Verified Date/Time:11/04/2019 09:18:32 [place] Location: [place] [address] [address] Reading Room Procedure Note Interface, External [...] Verified Date/Time: 11/05/2019 1 1:32:40 [place] Location: [address] Radiolog Reading Room Addendum Ends FINAL [...] the contrast sheet scann ed in the Jack Erwin system for the amount and route of [...] valve). For reference purpose, per [employer] Gabino joshi, recommendation are as follows: CT perime ter between 56.5-62.8 mm (23 mm valve); 62.8-72.3 mm (26 mm valve); 7 2.3-81.7 mm (29 mm valve); and 81.7-94.2. mm (34 mm valve). For reference purpose, per Kathy egan, recommendation are as follows: 23mm valve [...] regardi ng the non-vascular findings by the Machinist First Class Radiologist. Signed: Gaudencio Valencia MD Report Verified Date/Time: 11/04/2019 0 9:18:32 [place] Location: [place] [address] [address] Reading Room Performing Organization Address City/State/Zipcode Phone Number UNI5 CTA abdomen & pelvis (11/03/2019 12:30 AM CDT) Specimen Narrative Performed At Addendum Begins GE RIS REPORT STATUS:A I agree with the [...] MD Report Verified Date/Time:11/05/2019 11:32:40 [place] Location: [address] Radiolog Reading Room Addendum Ends FINAL [...] regar ding the non-vascular findings by the Machinist First Class Radiologist. Signed: Gaudencio Valencia MD Report Verified Date/Time:11/04/2019 09:18:32 [place] Location: [place] [address] [address] Reading Room Procedure Note Interface, External [...] Verified Date/Time: 11/05/2019 1 1:32:40 [place] Location: [address] Radiolog y Reading Room Addendum Ends [...] the contrast sheet scann ed in the Jack Erwin system for the amount and route of [...] For reference purpose, per [employer] Gabino lut Zenaida joshi, recommendation are as follows: CT perime [...] regardi ng the non-vascular findings by the Machinist First Class Radiologist. Signed: Gaudencio Valencia MD Report Verified Date/Time: 11/04/2019 0 9:18:32 [place] Location: [place] [address] [address] Reading Room Performing Organization Address City/State/Zipcode Phone Number UNI5 ECG/EKG Interpretation (11/02/2019 11:37 PM CDT) Narrative [...] spent personally by me on the f [facility] activities: development of treatment plan with patient [...] W/Doppler(CW/PW/Color) (11/02/2019 9:23 PM CDT) Ejection Fraction [facility] ECHO HEAR TLAB MKMessageCastON [facility] Specimen Narrative Performed At Transthoracic Echocardiography Report (T TE) [facility] ECHO HEARTLAB MKCKESSON [facility] Demographics Patient NameUDARTHUR DAODate of Study11/02/2019 Male Visit [id number] Unknown Room [id number] Number Date of 2Referring Keyla Streeter MD Age 89 year(s)Chromosomal Disorders Counselor Jose Ramon Salas Commercial Litigation Attorney Caprice Imtiaz MiriAideeerpreting Gabriel Streeter MD Physician FellowZenon nelson MD [...] Study 11/02/2019 Gende r Male Visit Number [id number] Race Unknown Room Number 6210 Number Date of 1930 Refer ring Physician Gabriel Streeter MD Age 89 year(s) 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 Jose Ramon Salas Commercial Litigation Attorney Caprice Lorenz Inter preting Gabriel Streeter MD [...] City/State/Zipcode Phone Number [facility] E[facility] HEARTLAB MKCKESSON CPACS Manual Differential (11/02/2019 7:45 PM CDT) % Neutros 99 % [facility] % Monos 1 % [facility] # Neutros 35.64 (H) 1.78 - 5.38 K/ul [facility] # Monos 0.36 0.30 - 0.82 K/uL [facility] Total Counted [address] [facility] WBC Morphology Normal [facility] Platelet Morphology Normal [facility] Polychromasia 1+ few [facility] Anisocytosis 1+ few [facility] Microcytes 1+ few [facility] Macrocytes 1+ few [facility] Poikilocytes 2+ moderate [facility] Manasa Cells 1+ few [facility] Platelet Conc Adequate [facility] Specimen Blood Narrative Performed At [employer] ID - Judy Mena [facility] User comments: Slide comments: Performing Organization Address City/State/Zipcode Phone Number [address] [address] [place] B-type Natriuretic Factor (BNP) (11/02/2019 7:45 PM CDT) BNP 1,394 (H) 0 - 100 pg/mL [facility] Specimen Blood Narrative Performed At [employer]ure [employer]maker ID - DB [facility] Performing Organization Address City/State/Zipcode Phone Number [place] [phone] [place] [address] [place] Respiratory Panel [facility] (11/02/2019 7:24 PM CDT) Human Metapneumovirus Not detected Not detected, [facility] [employer] [facility] Rhinovirus Not detected Not detected, [facility] [employer] [facility] Influenza A Not detected Not detected, [facility] INFLUENZA A (NO SUBTYPE) [facility] Influenza A subtype H1 [facility] Influenza A Subtype H3 [facility] Influenza A Subtype H1-2009 [facility] Influenza B Not detected Not detected, [facility] [employer] [facility] Respiratory Syncytial Virus Not detected Not detected, [facility] [employer] [facility] Parainfluenza Virus 1 Not detected Not detected, [facility] [employer] [facility] Parainfluenza Virus 2 Not detected Not detected, [facility] [employer] [facility] Parainfluenza virus 3 Not detected Not detected, [facility] Parainfluenza Virus 4 Not detected Not detected, [facility] Adenovirus Not detected Not detected, [facility] [employer] [facility] Coronavirus 229E Not detected Not detected, [facility] [employer] [facility] Coronavirus HKU1 Not detected Not detected, [facility] [employer] [facility] Coronavirus NL63 Not detected Not detected, [facility] [employer] [facility] Coronavirus OC43 Not detected Not detected, [facility] [employer] [facility] Bordetella Pertussis Not detected Not detected, [facility] [employer] [facility] Chlamydophila Pneumoniae Not detected Not detected, [facility] [employer] [facility] Mycoplasma Pneumoniae Not detected Not detected, [facility] [employer] [facility] Specimen Nasopharyngeal Narrative Performed At Other viruses and bacteria not targeted by [facility] this PCR panel cannot be excluded; therefore clinical correlation and follow up of serology, culture results, and other molecular studies is required. The results are not intended to be used as the sole means for clinical diagnosis or patient management decisions. This sample was tested at the [facility] using the [employer] FilmArray Respiratory Panel. It is FDA cleared and has been verified and approved by the [facility] for clinical use on nasopharyngeal swab specimens. The performance of the FilmArray RP has not been established in individuals who received influenza vaccine.Recent administration of a nasal influenza vaccine may cause false positive results for Influenza A and/or Influenza B. Performing Organization Address City/[facility]/Zipcode Phone Number [address] [address] CENTER ECG 12 lead (11/02/2019 7:05 PM CDT) Specimen Narrative Performed At Ventricular Rate 93 BPM GE MUSE Atrial Rate 93 BPM P-R Interval 158 ms QRS Duration 148 ms Q-T Interval 424 ms QTC Calculation(Bazett) 527 ms P Greene 54 degrees R Greene 2 degrees T Greene 153 degrees Sinus rhythm with Premature supraventric ular complexes Left bundle branch block Abnormal ECG No previous ECGs available Confirmed by MD Anderson Roberto ([id number]) on 11/03 5:03:32 PM Procedure Note Interface, External Ris In - 11/04/2019 5:03 PM CDT Ventricular Rate 93 BPM Atrial Rate 93 BPM P-R Interval 158 ms QRS Duration 148 ms Q-T Interval 424 ms QTC Calculation(Bazett) 527 ms P Greene 54 degrees R Greene 2 degrees T Greene 153 degrees Sinus rhythm with Premature supraventric ular complexes Left bundle branch block Abnormal ECG No previous ECGs available Confirmed by MD Anderson Roberto ([id number]) on 11/04/2019 5:03:32 PM Performing Organization Address City/[facility] Phone Number JAVIER BUTLER after 02/09/2019 Insurance Payer Benefit Plan / Group Subscriber ID Type Phone A ddress [facility] - UNITED MEDICARE HMO xxxxxxxxx MEDICARE MGD CARE CDC REVIEW CDC REVIEW xxxxxxxx [address] [place] [place] [address] Advance Directives For more information, please contact:[address] [place], [place] [phone] Code Status Date Activated Date Inactivated Comments Full Code 11/15/2019 3:09 PM 11/23/2019 5:51 PM This code status was determined by: Patient Full Code 11/02/2019 8:35 PM 11/15/2019 3:09 PM This code status was determined by: Patient
--- OUTSIDE RECORDS SUMMARY | 2020-02-10 02:33 | XMS REPORT | Continuity of Care Document ---
:1930 Author Organization [facility] t Address [address] [place] [address] Care Team Providers Name Role Phone Cami LARRYAdrian Primary Care Physician Wen HORSERADISH MAKER, Raven Attending Clinician Michael ESQUEDA Attending Clinician Monica ESQUEDA Attending Clinician MAUREEN MCCRAY Attending [...] Clinician Unavailable Nellie Ortiz MD Attending Clinician MONICA Admitting Clinician Unavailable Payers Payer Name Policy Type Policy Number Effective Expiration Source Date Date [facility] - xxxxxxxxx [facility] - Medical CAREUNITED MEDICARE Cente r HMOxxxxxxxxx [facility] REVIEWCDC xxxxxxxx St ke REVIEWxxxxxxxxPO - Medica l [facility] [id number] UHC MEDICAREUHC xxxxxxxxx 2018 [place] MEDICARE 00:00:00 [place] HMO/PPOxxxxxxxxx [id number]-PresentHMO Problems Condition Condition Condition Status [...] darryl with with 00 Center hypoxia hypoxia History of Past Illness Condition Condition Condition Status Onset Resolution Last Treating Co mments Source Name Details Category Date Date Treatment Clinician Date Cardiogeni Cardiogeni Disease Resolve 2019-11-19 2019-11-[address] [facility] shock c shock d 11-01 00:00:00 13:42:09 [facility] - 00:00: Medical 00 Center Allergies, Adverse Reactions, Alerts Allergy Allergy Status Severity Reaction(s) Onset Inactive Treating Comm ents Source Name Type Date Date Clinician No Known DA Active U [facility] Allergie 7-14 Clear s 00:00: Howard 00 [facility] Clopidog Propensi Active Other (See Clots and [facility] to Comments) 11-01 bleeding [facility] - adverse 00:00: per pt's Medical reaction 00 Center s Family History Family Member Diagnosis Comments Start Date Stop Date Source Family member Coronary artery disease [place] [facility] Family member Stroke [place] [facility] Social History Social Habit Start Date Stop Date Quantity Comments Source History SDOH [facility] - Alcohol Std Drinks [facility] History SDOH [facility] - Alcohol Binge Medical [address] ter Sex Assigned At [facility] Center History SDOH 2019-11-02 2019-11-[address] [facility] - Alcohol Frequency 00:00:00 00:00:00 Medical [place] Alcohol intake 2018-12-20 2018-12-20 Current [facility] thodist 00:00:00 00:00:00 non-drinker of alcohol (finding) Smoking Status Start Date Stop Date Source Never smoker [facility] edical Center Medications Ordered Filled Start Stop Current Ordering Indication Dosage Frequency Signature Comments Components Source Medication Medication Date Date Medication? Clinician (SIG) Name Name bumetanide 2020- Yes 1mg QD Take [address] [facility] (BUMEX) 1 11-22-19 tablet (1 Luke s - MG tablet 00:00: 23:59 mg total) Me dical 00 :00 by mouth Center daily. clopidogreL 2020- No 75mg QD Take [address] [facility] [address] (PLAVIX) 75 6- 08- tablet (75 L ukes - mg tablet 00:00: 23:59 mg total) Me dical 00 :00 by mouth Center daily for 48 days. AVODART 0.[address] mg capsule 5-27 [facility]ukes - 00:00: Medical 00 Center furosemide 2020- No [facility] (LASIX) 20 5-25 - [facility] - MG tablet 00:00: 00:00 Medical 00 :00 Center metoprolol Yes TAKE 1 [place] succinate 1-17 TABLET BY Metho di XL 00:00: MOUTH st (TOPROL-XL) 00 DAILY 25 mg 24 hr tablet metoprolol 2019- No TAKE [address] [facility] [facility] succinate 1-15 -17 TABLET BY Luke s - (TOPROL-XL) 00:00: 00:00 MOUTH Medi darryl 25 MG 24 hr 00 :00 DAILY Center tablet metoprolol 2019- No TAKE 1 [place] succinate 1-14 -17 TABLET BY Meth jesus XL 00:00: 00:[address] (TOPROL-XL) 00 :00 DAILY 25 mg 24 hr tablet AVODART 0.5 2015-06 Yes QD daily. [place] mg capsule 1-15 Methodi 00:00: st 00 ramipril 2015-06 Yes QD daily. Shha (ALTACE) 10 0-02 Methodi MG capsule 00:00: st 00 Vital Signs Vital Name Observation Time Observation Value Comments Source Systolic blood 2019-11-23 11:50:00 109 mm[Hg] [facility] Diastolic blood 2019-11-23 11:50:00 53 mm[Hg] [facility] Heart rate 2019-11-23 11:50:00 70 /min [facility] Body temperature 2019-11-23 11:50:00 36.61 Iliana [facility] Respiratory rate 2019-11-23 11:50:00 17 /min [facility] Oxygen saturation in 2019-11-23 11:50:00 99 /min [facility] Arterial blood by Medical Ce nter Pulse oximetry Body weight Measured 2019-11-23 06:31:00 55.792 kg [facility] BMI 2019-11-23 06:31:00 18.70 kg/m2 [facility] Body height 2019-11-03 03:16:00 172.7 cm [facility] Procedures Procedure Date / Time Performing Clinician Source Performed SARS-COV2/RT-PCR ([facility] & 2019-12-06 22:28:00 [facility] REF LABS) [facility] ARRYTHMIA IMPLANT REPORT - 2019-11-27 08:21:23 Provider, [facility] RHYTHM STRIP - SCAN 2019-11-27 08:21:00 Provider, [facility] CARDIAC CATH REPORT - SCAN 2019-11-27 08:20:58 Provider, [facility] CARDIAC CATH REPORT - SCAN 2019-11-27 08:20:57 Provider, [facility] UROLOGY REPORT - SCAN 2019-11-27 08:20:54 Provider, [facility] BASIC METABOLIC PANEL (7) 2019-11-23 04:50:00 Lazarus, [facility] MAGNESIUM 2019-11-23 04:50:00 Lazarus, [facility] PHOSPHORUS 2019-11-23 04:50:00 Lazarus, [facility] PLATELET AGGREGATION: 2019-11-23 04:50:[address] [facility] FUNCTION SCREEN [facility] XR CHEST 1 VIEW 2019-11-22 09:12:00 [facility] PORTABLE/BEDSIDE [facility] BASIC METABOLIC PANEL (7) 2019-11-22 04:23:00 [facility] MAGNESIUM 2019-11-22 04:23:00 [facility]OS[facility]US 2019-11-22 04:23:00 Lazarus [facility] CBC W/PLT COUNT & AUTO 2019-11-22 04:23:00 Lazarus [facility] ARRYTHMIA IMPLANT REPORT - 2019-11-21 14:41:20 Provider, [facility] LIMITED 2D ECHOCARDIOGRAM 2019-11-21 10:16:19 Gabriel Streeter [facility] XR CHEST 1 VIEW 2019-11-21 08:40:00 Lazarus, [facility]/BEDSIDE [facility] BASIC METABOLIC PANEL (7) 2019-11-21 04:57:00 LazarusYoly [facility] MAGNESIUM 2019-11-21 04:57:00 [facility]us [facility] 2019-11-21 04:57:00 Lazarus [facility] CBC W/PLT COUNT & AUTO 2019-11-21 04:57:00 Lazarus [facility] BASIC METABOLIC PANEL (7) 2019-11-20 04:33:00 LazarusYoly [facility] MAGNESIUM 2019-11-20 04:33:00 Lazarus [facility] PHOSPHORUS 2019-11-20 04:33:00 Lazarus, [facility] CBC W/PLT COUNT & AUTO 2019-11-20 04:33:00 Lazarus, [facility] XR CHEST 1 VIEW 2019-11-20 01:46:00 Lazarus, [facility]/BEDSIDE [facility] BASIC METABOLIC PANEL (7) 2019-11-19 03:17:00 LazarusYoly underwood [facility] MAGNESIUM 2019-11-19 03:17:00 Lazarus, [facility] PHOSPHORUS 2019-11-19 03:17:00 Lazarus, [facility] CBC W/PLT COUNT & AUTO 2019-11-19 03:17:00 Lazarus, [facility] XR CHEST 1 VIEW 2019-11-19 02:12:00 Lazarus, [facility]/BEDSIDE [facility] HEMOGLOBIN AND HEMATOCRIT 2019-11-18 22:07:00 Ryan Good [facility] BASIC METABOLIC PANEL (7) 2019-11-18 04:11:00 [facility] MAGNESIUM 2019-11-18 04:11:00 Lazarus [facility] PHOSPHORUS 2019-11-18 04:11:00 Lazarus, [facility] CBC W/PLT COUNT & AUTO 2019-11-18 04:11:00 Lazarus [facility] XR CHEST 1 VIEW 2019-11-18 01:48:00 Lazarus [facility]/BEDSIDE [facility] HEMOGLOBIN AND HEMATOCRIT 2019-11-17 18:00:00 KarineJerry [facility] BASIC METABOLIC PANEL (7) 2019-11-17 18:00:00 RobertoJacy albert [facility] MAGNESIUM 2019-11-17 18:00:00 RobertoJacy [facility] HEMOGLOBIN AND HEMATOCRIT 2019-11-17 12:13:00 Hemamichi [facility] PLASMA FREE HEMOGLOBIN 2019-11-17 12:13:00 Karine [facility] XR CHEST 1 VIEW 2019-11-17 04:43:00 Lazarus [facility] BASIC METABOLIC PANEL (7) 2019-11-17 03:22:00 [facility]arsh [facility] MAGNESIUM 2019-11-17 03:22:00 Lazarus [facility] PHOSPHORUS 2019-11-17 03:22:00 Lazarus [facility] CBC W/PLT COUNT & AUTO 2019-11-17 03:22:00 Lazarus [facility] TRANSFUSION SERVICE REPORT 2019-11-16 18:02:27 Provider, [facility] - - SCAN Scanning [facility] XR CHEST 1 VIEW 2019-11-16 17:46:00 Viviane Hager [facility] CYTOLOGY 2019-11-16 17:02:00 [facility] US THORACENTESIS 2019-11-16 17:00:00 Lazarus [facility] RHYTHM STRIP - SCAN 2019-11-16 15:40:23 Provider [facility] PT/APTT 2019-11-16 11:45:00 Lazarus [facility] PROTHROMBIN TIME/INR 2019-11-16 11:45:00 Lazarus [facility] 2D ECHO W/ DOPPLER 2019-11-16 10:23:38 Alexander Munson [facility] (CW/PW/COLOR) [facility] HEMOGLOBIN AND HEMATOCRIT 2019-11-16 09:39:00 Breanna Silva [facility] RETICULOCYTE COUNT 2019-11-16 09:39:00 Lazarus, [facility] HAPTOGLOBIN 2019-11-16 09:35:00 Lazarus, [facility] BLOOD GAS, ARTERIAL 2019-11-16 04:30:00 Roberto, [facility] XR CHEST 1 VIEW 2019-11-16 04:14:00 Lazarus, [facility] PORTABLE/BEDSIDE [facility] BASIC METABOLIC PANEL (7) 2019-11-16 02:44:00 Lazarus, [facility] MAGNESIUM 2019-11-16 02:44:00 Lazarus, [facility] PHOSPHORUS 2019-11-16 02:44:00 Lazarus, [facility] LACTATE DEHYDROGENASE 2019-11-16 02:44:00 Lazarus, [facility] (LDH) [facility] CBC W/PLT COUNT & AUTO 2019-11-16 02:44:00 Lazarus, [facility] BLOOD GAS, ARTERIAL 2019-11-16 00:18:00 KarenHenry singh [facility] BLOOD GAS, ARTERIAL 2019-11-15 22:12:00 Roberto, [facility] MAGNESIUM 2019-11-15 16:47:00 Roberto, [facility] COMPREHENSIVE METABOLIC 2019-11-15 16:47:00 Roberto, [facility] PANEL [facility] XR CHEST 1 VIEW 2019-11-15 16:46:00 Roberto, [facility] PORTABLE/BEDSIDE [facility] BLOOD GAS, ARTERIAL 2019-11-15 16:45:00 Roberto, [facility] CBC W/PLT COUNT & AUTO 2019-11-15 16:43:00 Roberto, [facility] PREPARE RBC 2019-11-15 16:14:00 Alexander Munson [facility] POCT-ACT 2019-11-15 13:54:00 Mayela Field [facility] CALCIUM, IONIZED 2019-11-15 13:28:50 Tate Pereira [facility] BLOOD GAS, ARTERIAL 2019-11-15 13:28:50 Tate Pereira [facility] SODIUM NA-STAT LAB 2019-11-15 13:28:50 Randall [facility] POTASSIUM-STAT LAB 2019-11-15 13:28:50 Randall [facility] GLUCOSE-STAT LAB 2019-11-15 13:28:50 Randall [facility] HGB/HCT (H&H) - STAT LAB 2019-11-15 13:28:50 Randall [facility] POCT-GLUCOSE METER 2019-11-15 11:59:00 Mayela Field [facility] TRANSESOPHAGEAL ECHO 2019-11-15 10:49:52 [facility] COLOR-FLOW MAPPING 2019-11-15 10:33:26 [facility] CONT WAVE PULSED DOPPLER 2019-11-15 10:33:26 [facility] TAVR / ROMARIO MCR - IP 2019-11-15 09:37:00 [facility] LEADLESS PACEMAKER 2019-11-15 09:37:00 [facility] INSERTION [facility] XR CHEST 1 VIEW 2019-11-15 03:58:00 Yoly Qiu [facility] PORTABLE/BEDSIDE Medical Center BASIC METABOLIC PANEL (7) 2019-11-15 03:26:00 Yoly Qiu [facility] MAGNESIUM 2019-11-15 03:26:00 Yoly Qiu [facility] PHOSPHORUS 2019-11-15 03:26:00 Yoly Qiu [facility] APTT 2019-11-15 03:26:00 Posadas, Ciara [facility] CBC W/PLT COUNT & AUTO 2019-11-15 03:26:00 Lazarus, [facility] XR CHEST 1 VIEW 2019-11-14 22:58:[address] [facility] PORTABLE/BEDSIDE [facility] CBC W/PLT COUNT & AUTO 2019-11-14 22:49:00 Laura Pavon [facility] TRANSFUSION SERVICE REPORT 2019-11-14 18:11:32 ProviderLuz [facility] - SCAN Scanning [facility] BASIC METABOLIC PANEL (7) 2019-11-14 05:29:00 LazarusYoly [facility] MAGNESIUM 2019-11-14 05:29:00 LazarusYoly [facility] PHOSPHORUS 2019-11-14 05:29:00 [facility]arsh [facility] APTT 2019-11-14 05:29:00 Ciara Posadas Leigh [facility] CBC W/PLT COUNT & AUTO 2019-11-14 05:29:00 LazarusYoly underwood [facility] XR CHEST 1 VIEW 2019-11-14 04:22:00 Lazarus, [facility]/BEDSIDE [facility] APTT 2019-11-14 00:51:00 Ciara Posadas [facility] APTT 2019-11-13 17:23:00 Ciara Posadas [facility] BLOOD CULTURE 2019-11-13 16:08:00 Mando Garcia [facility] URINALYSIS W/ REFLEX URINE 2019-11-13 12:05:00 Yoly Qiu [facility] APTT 2019-11-13 11:04:00 Ciara Posadas Leigh [facility] TYPE AND SCREEN, AUTOMATED 2019-11-13 11:04:00 Alexander Munson [facility] BASIC METABOLIC PANEL (7) 2019-11-13 04:34:00 LazarusYoly [facility] MAGNESIUM 2019-11-13 04:34:00 [facility] PHOSPHORUS 2019-11-13 04:34:00 Lazarus, [facility] HEPATIC FUNCTION PANEL 2019-11-13 04:34:00 Lazarus, [facility] CALCIUM, IONIZED 2019-11-13 04:34:00 Lazarus, [facility] APTT 2019-11-13 04:34:00 Ciara Posadas Leigh [facility] CBC W/PLT COUNT & AUTO 2019-11-13 04:34:00 Lazarus, [facility] APTT 2019-11-12 20:00:00 Ciara Posadas Leigh [facility] BASIC METABOLIC PANEL (7) 2019-11-12 16:56:00 Lazarus, [facility] APTT 2019-11-12 12:39:00 Ciara Posadas Leigh [facility] BASIC METABOLIC PANEL (7) 2019-11-12 05:06:00 LazarusYoly underwood [facility] MAGNESIUM 2019-11-12 05:06:00 Lazarus [facility] PHOSPHORUS 2019-11-12 05:06:00 Lazarus, [facility] APTT 2019-11-12 05:06:00 Ciara Posadas [facility] HEPATIC FUNCTION PANEL 2019-11-12 05:06:00 Lazarus, [facility] CBC W/PLT COUNT & AUTO 2019-11-12 05:06:00 Lazarus, [facility] APTT 2019-11-11 21:02:00 Ciara Posadas Leigh [facility] CYTOLOGY 2019-11-11 17:22:00 Lazarus, [facility] BODY FLUID CELL COUNT WITH 2019-11-11 13:09:[address] [facility] APTT 2019-11-11 13:09:00 Lazarus, [facility] XR CHEST 1 VIEW 2019-11-11 11:40:00 Lazarus, [facility]/BEDSIDE Medical Center US THORACENTESIS 2019-11-11 11:27:00 Divya Tom In [facility] XR CHEST 1 VIEW 2019-11-11 08:51:00 LazarusYoly [facility]/BEDSIDE [facility] BASIC METABOLIC PANEL (7) 2019-11-11 05:11:00 LazarusYoly [facility] MAGNESIUM 2019-11-11 05:11:00 LazarusYoly [facility] PHOSPHORUS 2019-11-11 05:11:00 LazarusYoly [facility] CBC W/PLT COUNT & AUTO 2019-11-11 05:11:00 [facility] POCT-GLUCOSE METER 2019-11-10 11:52:00 Divya Tom In [facility] POTASSIUM 2019-11-10 10:34:00 Laura Pavon [facility] MAGNESIUM 2019-11-10 10:34:00 Laura Pavon [facility] POCT-GLUCOSE METER 2019-11-10 07:46:00 Mayela Field [facility] POCT-GLUCOSE METER 2019-11-10 07:29:00 Mayela Field [facility] BASIC METABOLIC PANEL (7) 2019-11-10 03:51:00 LazarusYoly [facility] MAGNESIUM 2019-11-10 03:51:00 LazarusYoly [facility] PHOSPHORUS 2019-11-10 03:51:00 LazarusYoly [facility] PROTHROMBIN TIME/INR 2019-11-10 03:51:00 Jacy Mejia [facility] CBC W/PLT COUNT & AUTO 2019-11-10 03:51:00 LazarusYoly [facility] POCT-GLUCOSE METER 2019-11-09 22:19:00 Mayela Field [facility] INTRAOPERATIVE PATH REPORT 2019-11-09 15:11:08 Provider, Default [facility] - - SCAN Scanning [facility] POCT-GLUCOSE METER 2019-11-09 11:38:00 Mayela Field [facility] XR CHEST 1 VIEW 2019-11-09 11:16:00 Roberto Jacy [facility]/BEDSIDE [facility] BASIC METABOLIC PANEL (7) 2019-11-09 04:51:00 LazarusYoly underwood [facility] MAGNESIUM 2019-11-09 04:51:00 LazarusYoly [facility] PHOSPHORUS 2019-11-09 04:51:00 [facility] CBC W/PLT COUNT & AUTO 2019-11-09 04:51:00 Lazarus, [facility] S [facility] POCT-GLUCOSE METER 2019-11-08 22:05:00 Tom Stokes In [facility] OXYGEN SATURATION, 2019-11-08 21:46:00 Laura Pavon [facility] LACTIC ACID, VENOUS 2019-11-08 21:46:00 Laura Pavon [facility] TRANSFUSION SERVICE REPORT 2019-11-08 17:51:58 Provider, Default [facility] - - SCAN [facility] POCT-GLUCOSE METER 2019-11-08 17:20:00 Tom Stokes In [facility] PULMONARY FUNCTION - SCAN 2019-11-08 14:30:05 Provider, Default [facility] POCT-GLUCOSE METER 2019-11-08 11:16:00 Tom Stokes In [facility] POCT-GLUCOSE METER 2019-11-08 07:36:00 Tom Stokes In [facility] BASIC METABOLIC PANEL (7) 2019-11-08 03:24:00 LazarusYoly underwood [facility] MAGNESIUM 2019-11-08 03:24:00 [facility] PHOSPHORUS 2019-11-08 03:24:00 Lazarus, [facility] CBC W/PLT COUNT & AUTO 2019-11-08 03:24:00 Lazarus, [facility] S t [facility] DIFFERENTIAL [facility] REPORT OF PROCEDURE - 2019-11-07 16:40:28 [facility] EBUS FNA REQUEST 2019-11-07 16:11:18 Luis Alberto Santiago [facility] EBUS FNA REQUEST 2019-11-07 16:11:05 Luis Alberto Santiago [facility] FINE NEEDLE ASPIRATE BY 2019-11-07 16:11:00 [facility] 2019-11-07 16:04:53 Luis Alberto Santiago [facility] FINE NEEDLE ASPIRATE BY 2019-11-07 16:04:00 Luis Alberto Santiago [facility] TISSUE EXAM 2019-11-07 15:42:55 Luis Alberto Santiago [facility] BRONCHOSCOPY,ENDOBRONCHIAL 2019-11-07 14:00:[address] [facility] ULTRASOUND (EBUS) [facility] TRANSTRACH/ TRANSBRONCH SAMPLING BRONCHOSCOPY,BRONCHIAL 2019-11-07 14:00:00 [facility] ALVEOLAR LAVAGE [facility] ABORH, MANUAL 2019-11-07 08:19:00 Kaylie Dunlap [facility] CBC (HEMOGRAM ONLY) 2019-11-07 05:26:00 Yo Gonzalez [facility] COMPREHENSIVE METABOLIC 2019-11-07 05:26:[address] [facility] PROTHROMBIN TIME/INR 2019-11-07 05:26:00 Luis Alberto Santiago [facility] APTT 2019-11-07 05:26:00 Luis Alberto Santiago [facility] MAGNESIUM 2019-11-07 05:26:00 Sergei Schwarz [facility] TYPE AND SCREEN, AUTOMATED 2019-11-07 05:26:00 Luis Alberto Santiago [facility] CBC W/PLT COUNT & AUTO 2019-11-07 05:26:00 Luis Alberto Santiago [facility] XR CHEST 1 VIEW 2019-11-06 17:38:00 Lazarus Yoly [facility] PORTABLE/BEDSIDE [facility] POCT-GLUCOSE METER 2019-11-06 17:15:00 Monica [facility] CT CHEST WITHOUT IV 2019-11-06 16:11:00 Monica [facility] SPIROMETRY 2019-11-06 14:45:00 Alexander Munson [facility] BASIC METABOLIC PANEL (7) 2019-11-06 13:23:00 Ricardo [facility] MAGNESIUM 2019-11-06 13:23:00 Ricardo [facility] POCT-GLUCOSE METER 2019-11-06 11:38:00 Monica [facility] POCT-GLUCOSE METER 2019-11-06 07:29:00 Monica [facility] VANCOMYCIN LEVEL, TROUGH 2019-11-06 03:40:00 Evette Thrasher [facility] CBC (HEMOGRAM ONLY) 2019-11-06 03:40:00 IlanabhYo greenberg [facility] BASIC METABOLIC PANEL (7) 2019-11-06 03:40:00 Ricardo Breanna [facility] MAGNESIUM 2019-11-06 03:40:00 Ricardo [facility] XR CHEST 1 VIEW 2019-11-06 03:39:00 Elkin Jarquin [facility] - PORTABLE/BEDSIDE [facility] CT BRAIN WITHOUT IV 2019-11-05 23:18:00 Alexander Munson [facility] POCT-GLUCOSE METER 2019-11-05 18:24:00 Monica [facility] REPORT OF PROCEDURE - 2019-11-05 15:50:38 Luz Mullen [facility] - ENDOSCOPY SCAN Scanning [facility] R & L CATH / CORONARY 2019-11-05 13:30:00 Gabriel Streeter [facility] - ANGIOS (+/- LV) [facility] CAROTID DOPPLER BILATERAL 2019-11-05 12:38:00 Monica Gabriel Delmar [facility] BASIC METABOLIC PANEL (7) 2019-11-05 12:03:00 Breanna Silva [facility] MAGNESIUM 2019-11-05 12:03:00 Ricardo [facility] POCT-GLUCOSE METER 2019-11-05 11:32:00 [facility] POCT-GLUCOSE METER 2019-11-05 07:14:00 [facility] CBC (HEMOGRAM ONLY) 2019-11-05 04:16:00 Lisa Yo [facility] PT/APTT 2019-11-05 04:16:00 Ricardo [facility] BASIC METABOLIC PANEL (7) 2019-11-05 04:16:00 Breanna Silva [facility] MAGNESIUM 2019-11-05 04:16:00 Ricardo [facility] BASIC METABOLIC PANEL (7) 2019-11-04 20:50:00 Marshall Silvau [facility] MAGNESIUM 2019-11-04 20:50:00 Ricardo [facility] POCT-GLUCOSE METER 2019-11-04 16:56:00 [facility] BASIC METABOLIC PANEL (7) 2019-11-04 13:36:00 Breanna Silva [facility] MAGNESIUM 2019-11-04 13:36:00 Ricardo [facility] POCT-GLUCOSE METER 2019-11-04 11:55:00 [facility] POCT-GLUCOSE METER 2019-11-04 07:30:00 [facility] MAGNESIUM 2019-11-04 02:39:00 Ricardo [facility] BASIC METABOLIC PANEL (7) 2019-11-04 02:39:00 Marshall Silvau [facility] CBC (HEMOGRAM ONLY) 2019-11-04 02:39:00 Yo Gonzalez [facility] XR CHEST 1 VIEW 2019-11-04 01:03:00 Ricardo [facility] PORTABLE/BEDSIDE [facility] POCT-GLUCOSE METER 2019-11-03 22:24:00 [facility] LACTATE DEHYDROGENASE 2019-11-03 19:12:00 [facility] [facility] ([facility]), PLEURAL FLUID [facility] er BODY FLUID CULTURE + GRAM 2019-11-03 16:44:00 [facility] GLUCOSE PLEURAL FLUID 2019-11-03 16:44:00 [facility] FUNGUS CULTURE + SMEAR 2019-11-03 16:44:00 [facility] CYTOLOGY 2019-11-03 16:44:00 [facility] PROTEIN, TOTAL, PLEURAL 2019-11-03 16:43:00 [facility] CHEST 1 VIEW 2019-11-03 16:40:[address] [facility] PORTABLE/BEDSIDE [facility] US THORACENTESIS 2019-11-03 16:35:00 [facility] BLOOD CULTURE 2019-11-03 12:31:00 [facility] MRSA SCREEN 2019-11-03 12:14:00 [facility] ASPERGILLUS GALACTOMANNAN 2019-11-03 12:10:00 Ricardo [facility] ASPERGILLUS ANTIBODY,ID 2019-11-03 12:09:00 [facility] BLASTOMYCES ANTIBODY 2019-11-03 12:09:00 [facility] COCCIDIOIDES ANTIBODIES 2019-11-03 12:09:00 [facility] HISTOPLASMA AB,ID 2019-11-03 12:09:00 [facility] BLOOD CULTURE 2019-11-03 12:07:00 [facility] MISCELLANEOUS LAB ORDER 2019-11-03 12:07:00 Ricardo [facility] POCT-GLUCOSE METER 2019-11-03 10:33:00 [facility] STREP PNEUMONIAE ANTIGEN 2019-11-03 09:58:00 Ricardo [facility] LEGIONELLA URINE ANTIGEN 2019-11-03 09:57:00 Ricardo, [facility] HISTOPLASMA ANTIGEN, URINE 2019-11-03 09:15:00 Breanna Silva [facility] CORTISOL 2019-11-03 08:46:00 Ricardo, [facility] TSH/FREE T4 IF INDICATED 2019-11-03 08:46:00 Ricardo, [facility] PROCALCITONIN 2019-11-03 08:46:00 [facility] HEMOGLOBIN A1C 2019-11-03 08:46:00 Ricardo, [facility] T4, FREE 2019-11-03 08:46:00 Ricardo, [facility] XR CHEST 1 VIEW 2019-11-03 08:11:00 Ricardo [facility]/BEDSIDE [facility] [place] LACTIC ACID, VENOUS 2019-11-03 07:46:00 [facility] BASIC METABOLIC PANEL (7) 2019-11-03 07:45:00 Ricardo [facility] HEPATIC FUNCTION PANEL 2019-11-03 07:45:00 [facility] CBC (HEMOGRAM ONLY) 2019-11-03 06:11:00 Ciara Posadas [facility] BLOOD GAS, ARTERIAL 2019-11-03 01:27:00 Ciara Posadas [facility] TROPONIN I 2019-11-03 01:24:00 Ciara Posadas [facility] VENOUS DOPPLER LEGS 2019-11-03 01:04:00 Ciara Posadas [facility] CTA ABDOMEN & PELVIS 2019-11-03 00:30:00 Zenon Gomez [facility] CTA CHEST 2019-11-03 00:30:00 Jason [facility] TROPONIN I 2019-11-02 23:45:00 Ciara Posadas [facility] CRITICAL CARE 2019-11-02 23:37:13 Ciara Posadas [facility] ED ECG INTERPRETATION 2019-11-02 23:37:13 Ciara Posadas [facility] 2D ECHO W/ DOPPLER 2019-11-02 21:23:00 [facility] (CW/PW/COLOR) [facility] BLOOD GAS, ARTERIAL 2019-11-02 20:56:00 Ciara Posadas [facility] URINALYSIS W/ REFLEX URINE 2019-11-02 20:56:00 Ciara Posadas [facility] SARS-COV2/RT-PCR ([facility] & 2019-11-02 19:49:00 Ciara Posadas [facility] 2019-11-02 19:45:00 Ciara Posadas [facility] BASIC METABOLIC PANEL (7) 2019-11-02 19:45:00 Ciara Posadas Ma [facility] PT/APTT 2019-11-02 19:45:00 Ciara Posadas [facility] HEPATIC FUNCTION PANEL 2019-11-02 19:45:00 Ciara Posadas [facility] B-TYPE NATRIURETIC FACTOR 2019-11-02 19:45:00 Ciara Posadas Ma [facility] (BNP) [facility] LACTIC ACID, VENOUS 2019-11-02 19:45:00 Ciara Posadas [facility] APTT 2019-11-02 19:45:00 Ciara Posadas [facility] CBC W/PLT COUNT & AUTO 2019-11-02 19:45:00 Ciara Posadas [facility] (CELLAVISION MANUAL DIFF) 2019-11-02 19:45:00 Ciara Posadas Ma [facility] XR CHEST 1 VIEW 2019-11-02 19:33:00 Ciara Posadas [facility]/BEDSIDE [facility] Center RESPIRATORY PANEL [facility] 2019-11-02 19:24:00 Danial Ortega [facility] ECG 12-LEAD 2019-11-02 19:05:06 Ciara Posadas [facility] Plan of Care Planned Activity Planned Date Details Comments Source Future Scheduled 2020-03-06 INFLUENZA VACCINE [facility] 00:00:00 [code = INFLUENZA VACCINE] Future Scheduled 2020-02-05 INFLUENZA VACCINE (#1) [facility]:00 [code = INFLUENZA Medical Ce nter VACCINE (#1)] Future Scheduled 2019-06-06 Medicare IPPE (WELCOME [facility] Test 00:00:00 TO MEDICARE) [code = Medical Center Medicare IPPE (WELCOME TO MEDICARE)] Future Scheduled 1995 65+ PNEUMOCOCCAL [facility] 00:00:00 VACCINE (1 of 2 - PCV13) [code = 65+ PNEUMOCOCCAL VACCINE (1 of 2 - PCV13)] Future Scheduled 1997 PNEUMOCOCCAL 65+ [facility] Test 00:00:00 LOW/MEDIUM RISK (1 of Medica l Center 2 - PCV13) [code = PNEUMOCOCCAL 65+ LOW/MEDIUM RISK (1 of 2 - PCV13)] Future Scheduled 1980 SHINGLES VACCINES (#1) [facility] 00:00:00 [code = SHINGLES VACCINES (#1)] Encounters Start End Encounter Admission Attending Care Care Encounter Source Date/Time Date/Time Type Type Clinicians Facility Department ID 2020-01-21 2020-01-21 DEYSI Bui [id number] 00:00:00 00:00:00 Hector Don [id number] Awais [id number] Jaki [id number] [address] 2019-06-20 2019-06-20 DEYSI Bui [id number] 00:00:00 00:00:00 Hector Don [id number] [place] [id number] [facility] [id number] [facility] [address] Building Results Test Description Test Time Test Comments Results Result Comments Source BASIC METABOLIC PANEL 2020-01-09 05:11:00 Test Item Value Reference Range Interpretation Comme nts SODIUM (test code = NA) 145 mmol/L 134-147 N POTASSIUM (test code = K) 4.0 mmol/L 3.4-5.0 N CHLORIDE (test code = CL) 110 mmol/L 100-108 H CARBON DIOXIDE (test code = CO2) 35 mmol/L 21-32 H ANION GAP (test code = GAP) 0.0 GAP calc 4.0-15.0 L GLUCOSE (test code = GLU) 100 MG/DL 70-110 N BLOOD UREA NITROGEN (test code = BUN) 29 MG/DL 7-18 H GLOMERULAR FILTRATION RATE (test code = GFR) >=60 max estimate estG FR >60 CREATININE (test code = CREAT) 0.5 MG/DL 0.8-1.3 L CALCIUM (test code = CA) 8.1 MG/DL 8.5-10.1 L CBC W/AUTO [id number] 04:46:00 Test Item Value Reference Range Interpretation Comments WHITE BLOOD CELL (test code = 9.5 K/mm3 3.5-11.0 N WBC) RED BLOOD CELL (test code = 3.29 M/mm3 4.70-6.10 L RBC) HEMOGLOBIN (test code = HGB) 9.3 G/DL 12.3-15.9 L HEMATOCRIT (test code = HCT) 31.1 % 35.8-46.7 L MEAN CELL VOLUME (test code = 94.5 Fl 86.3-98.9 N MCV) MEAN CELL HGB (test code = MCH) 28.3 pg 28.9-34.4 L MEAN CELL HGB CONCETRATION 29.9 G/DL 32.1-34.5 L (test code = MCHC) RED CELL DISTRIBUTION WIDTH 17.2 SD 11.5-14.5 H (test code = RDW) PLATELET COUNT (test code = 116 K/mm3 150-450 L PLT) MEAN PLATELET VOLUME (test code 10.90 fL 7.0-9.6 H = MPV) NEUTROPHIL % (test code = NT%) 78.1 % 40-76 H IMMATURE GRANULOCYTE % (test 0.6 % 0.0-5.0 N code = IG%) LYMPHOCYTE % (test code = LY%) 13.6 % 20.5-51.1 L MONOCYTE % (test code = MO%) 4.8 % 1.7-9.3 N EOSINOPHIL % (test code = EO%) 2.5 % 0.0-6.0 N BASOPHIL % (test code = BA%) 0.4 % 0.0-2.0 N NUCLEATED RBC % (test code = 0.0 /100WBC% 0.0-1.0 N NRBC%) NEUTROPHIL # (test code = NT#) 7.4 K/mm3 1.8-7.6 N IMMATURE GRANULOCYTE # (test 0.06 x10 3/uL 0.00-0.03 H code = IG#) LYMPHOCYTE # (test code = LY#) 1.3 K/mm3 0.6-3.0 N MONOCYTE # (test code = MO#) 0.5 K/mm3 0.2-1.5 N EOSINOPHIL # (test code = EO#) 0.2 K/mm3 0.0-0.4 N BASOPHIL # (test code = BA#) 0.0 K/mm3 0.0-0.2 N NUCLEATED RBC # (test code = 0.0 K/mm3 0.00-0.01 N NRBC#) MANUAL DIFF REQUIRED (test code NO DIFF/SCN CRITERIA = MDIFF) - XR CHEST 1 [id number] 13:05:00 Name: ARTHUR NUNEZ [facility] : 1930 Age/S: 89 / M [address] Unit #: [id number] Loc: [place] [address] Phys: Coleen Ochoa MD Acct: [id number] Dis Date: Status: ADM IN PHONE #: [phone] Exam Date: 01/07/2020 1240 FAX #: Reason: hypoxemia EXAMS: CPT: [id number] XR CHEST 1 V 61657 Fluoro Time: DAP (Gy m2): Air Kerma (mGy): LOCATION: T18 EXAM: CHEST 1 VIEW INDICATION: , hypoxemia COMPARISON: Chest x-ray January 03, 2020 TECHNIQUE: AP chest radiograph. FINDINGS: Diffuse bilateral airspace opacity with interval improvement from the prior exam. Decreased small bilateral pleural effusions.Heart is normal in size. Bones and peripheral soft tissues are unremarkable. IMPRESSION: Bilateral airspace opacity with interval improvement and decrease small bilateral pleural effusions. at 1305 Reported and signed by: Yemi Ramey M.D. CC: Coleen Ochoa MD PAGE 1 Signed Report Name: ARTHUR NUNEZ [place] : 1930 Age/S: 89 / M [address] Unit #: [id number] Loc: [place] [address] Phys: Coleen Ochoa MD Acct: [id number] Dis Date: Status: ADM IN PHONE #: [phone] Exam Date: 01/07/2020 1240 FAX #: Reason: hypoxemia EXAMS: CPT: [id number] XR CHEST 1 V 50948 Fluoro Time: DAP (Gy m2): Air Kerma (mGy): <Continued> Technologist: Candelaria Jay, RT(R) Trnscb Date/Time: 01/07/2020 (4166) [email or web address] Orig Print D/T: S: 01/07/2020 ([id number]) PAGE 2 Signed ReportCBC W/AUTO [id number] 09:32:00 Test Item Value Reference Range Interpretation Comments WHITE BLOOD CELL 9.8 K/mm3 3.5-11.0 N (test code = WBC) RED BLOOD CELL (test 3.09 M/mm3 4.70-6.10 L code = RBC) HEMOGLOBIN (test code 8.6 G/DL 12.3-15.9 L = HGB) HEMATOCRIT (test code 28.2 % 35.8-46.7 L = HCT) MEAN CELL VOLUME 91.3 Fl 86.3-98.9 N (test code = MCV) MEAN CELL HGB (test 27.8 pg 28.9-34.4 L code = MCH) MEAN CELL HGB 30.5 G/DL 32.1-34.5 L CONCETRATION (test code = MCHC) RED CELL DISTRIBUTION 17.2 SD 11.5-14.5 H WIDTH (test code = RDW) PLATELET COUNT (test 94 K/mm3 150-450 L code = PLT) MEAN PLATELET VOLUME 10.60 fL 7.0-9.6 H (test code = MPV) NEUTROPHIL % (test 78.7 % 40-76 H code = NT%) IMMATURE GRANULOCYTE 0.6 % 0.0-5.0 N % (test code = IG%) LYMPHOCYTE % (test 13.1 % 20.5-51.1 L code = LY%) MONOCYTE % (test code 5.2 % 1.7-9.3 N = MO%) EOSINOPHIL % (test 2.2 % 0.0-6.0 N code = EO%) BASOPHIL % (test code 0.2 % 0.0-2.0 N = BA%) NUCLEATED RBC % (test 0.0 /100WBC% 0.0-1.0 N code = NRBC%) NEUTROPHIL # (test 7.7 K/mm3 1.8-7.6 H code = NT#) IMMATURE GRANULOCYTE 0.06 x10 3/uL 0.00-0.03 H # (test code = IG#) LYMPHOCYTE # (test 1.3 K/mm3 0.6-3.0 N code = LY#) MONOCYTE # (test code 0.5 K/mm3 0.2-1.5 N = MO#) EOSINOPHIL # (test 0.2 K/mm3 0.0-0.4 N code = EO#) BASOPHIL # (test code 0.0 K/mm3 0.0-0.2 N = BA#) NUCLEATED RBC # (test 0.0 K/mm3 0.00-0.01 N code = NRBC#) MANUAL DIFF REQUIRED NO DIFF/SCN CRITERIA SLIDE R VIBHAW (test code = MDIFF) CONSISTA NT WITH AUTO DIFFERENTI AL. RBC [id number] 09:32:00 Test Item Value Reference Range Interpretation Comments PLATELET ESTIMATE DECREASED THOUSAND ADEQUATE IRAIS MATED (test code = PLATELET RANGE = PLTEST) 96,000 - 120,00 0 PLATELET MORPHOLOGY NORMAL (test code = PLTMORPH) CBC W/AUTO [id number] 09:31:00 Test Item Value Reference Range Interpretation Comments WHITE BLOOD CELL 9.8 K/mm3 3.5-11.0 N (test code = WBC) RED BLOOD CELL (test 3.09 M/mm3 4.70-6.10 L code = RBC) HEMOGLOBIN (test code 8.6 G/DL 12.3-15.9 L = HGB) HEMATOCRIT (test code 28.2 % 35.8-46.7 L = HCT) MEAN CELL VOLUME 91.3 Fl 86.3-98.9 N (test code = MCV) MEAN CELL HGB (test 27.8 pg 28.9-34.4 L code = MCH) MEAN CELL HGB 30.5 G/DL 32.1-34.5 L CONCETRATION (test code = MCHC) RED CELL DISTRIBUTION 17.2 SD 11.5-14.5 H WIDTH (test code = RDW) PLATELET COUNT (test 94 K/mm3 150-450 L code = PLT) MEAN PLATELET VOLUME 10.60 fL 7.0-9.6 H (test code = MPV) NEUTROPHIL % (test 78.7 % 40-76 H code = NT%) IMMATURE GRANULOCYTE 0.6 % 0.0-5.0 N % (test code = IG%) LYMPHOCYTE % (test 13.1 % 20.5-51.1 L code = LY%) MONOCYTE % (test code 5.2 % 1.7-9.3 N = MO%) EOSINOPHIL % (test 2.2 % 0.0-6.0 N code = EO%) BASOPHIL % (test code 0.2 % 0.0-2.0 N = BA%) NUCLEATED RBC % (test 0.0 /100WBC% 0.0-1.0 N code = NRBC%) NEUTROPHIL # (test 7.7 K/mm3 1.8-7.6 H code = NT#) IMMATURE GRANULOCYTE 0.06 x10 3/uL 0.00-0.03 H # (test code = IG#) LYMPHOCYTE # (test 1.3 K/mm3 0.6-3.0 N code = LY#) MONOCYTE # (test code 0.5 K/mm3 0.2-1.5 N = MO#) EOSINOPHIL # (test 0.2 K/mm3 0.0-0.4 N code = EO#) BASOPHIL # (test code 0.0 K/mm3 0.0-0.2 N = BA#) NUCLEATED RBC # (test 0.0 K/mm3 0.00-0.01 N code = NRBC#) MANUAL DIFF REQUIRED NO DIFF/SCN CRITERIA SLIDE R NICK (test code = MDIFF) CONSISTA NT WITH AUTO DIFFERENTI AL. CBC W/AUTO [id number] 09:31:00 Test Item Value Reference Range Interpretation Comments WHITE BLOOD CELL 9.8 K/mm3 3.5-11.0 N (test code = WBC) RED BLOOD CELL (test 3.09 M/mm3 4.70-6.10 L code = RBC) HEMOGLOBIN (test code 8.6 G/DL 12.3-15.9 L = HGB) HEMATOCRIT (test code 28.2 % 35.8-46.7 L = HCT) MEAN CELL VOLUME 91.3 Fl 86.3-98.9 N (test code = MCV) MEAN CELL HGB (test 27.8 pg 28.9-34.4 L code = MCH) MEAN CELL HGB 30.5 G/DL 32.1-34.5 L CONCETRATION (test code = MCHC) RED CELL DISTRIBUTION 17.2 SD 11.5-14.5 H WIDTH (test code = RDW) PLATELET COUNT (test 94 K/mm3 150-450 L code = PLT) MEAN PLATELET VOLUME 10.60 fL 7.0-9.6 H (test code = MPV) NEUTROPHIL % (test 78.7 % 40-76 H code = NT%) IMMATURE GRANULOCYTE 0.6 % 0.0-5.0 N % (test code = IG%) LYMPHOCYTE % (test 13.1 % 20.5-51.1 L code = LY%) MONOCYTE % (test code 5.2 % 1.7-9.3 N = MO%) EOSINOPHIL % (test 2.2 % 0.0-6.0 N code = EO%) BASOPHIL % (test code 0.2 % 0.0-2.0 N = BA%) NUCLEATED RBC % (test 0.0 /100WBC% 0.0-1.0 N code = NRBC%) NEUTROPHIL # (test 7.7 K/mm3 1.8-7.6 H code = NT#) IMMATURE GRANULOCYTE 0.06 x10 3/uL 0.00-0.03 H # (test code = IG#) LYMPHOCYTE # (test 1.3 K/mm3 0.6-3.0 N code = LY#) MONOCYTE # (test code 0.5 K/mm3 0.2-1.5 N = MO#) EOSINOPHIL # (test 0.2 K/mm3 0.0-0.4 N code = EO#) BASOPHIL # (test code 0.0 K/mm3 0.0-0.2 N = BA#) NUCLEATED RBC # (test 0.0 K/mm3 0.00-0.01 N code = NRBC#) MANUAL DIFF REQUIRED NO DIFF/SCN CRITERIA SLIDE R VIBHAW (test code = MDIFF) CONSISTA NT WITH AUTO DIFFERENTI AL. COMPREHENSIVE METABOLIC [id number] 06:46:00 Test Item Value Reference Range Interpretation Comments SODIUM (test code = NA) 143 mmol/L 134-147 N POTASSIUM (test code = 3.6 mmol/L 3.4-5.0 N K) CHLORIDE (test code = 108 mmol/L 100-108 N CL) CARBON DIOXIDE (test 32 mmol/L 21-32 N code = CO2) ANION GAP (test code = 3.0 GAP calc 4.0-15.0 L GAP) GLUCOSE (test code = 84 MG/DL 70-110 N GLU) BLOOD UREA NITROGEN 24 MG/DL 7-18 H (test code = BUN) GLOMERULAR FILTRATION >=60 max estimate >60 RATE (test code = GFR) estGFR CREATININE (test code = 0.5 MG/DL 0.8-1.3 L CREAT) TOTAL PROTEIN (test code 4.8 G/DL 6.4-8.2 L = PROT) ALBUMIN (test code = 1.5 G/DL 3.4-5.0 L ALB) GLOBULIN (test code = 3.3 GM/dL GLOB) ALBUMIN/GLOBULIN RATIO 0.5 RATIO 1.2-2.2 L (test code = A/G) CALCIUM (test code = CA) 8.1 MG/DL 8.5-10.1 L BILIRUBIN TOTAL (test 0.50 MG/DL 0.2-1.2 N code = BILT) SGOT/AST (test code = 16 Unit/L 15-37 N AST) SGPT/ALT (test code = 30 Unit/L 12-78 N ALT) ALKALINE PHOSPHATASE 72 Unit/L 50-136 N TOTAL (test code = ALKP) [id number] 06:46:00 Test Item Value Reference Range Interpretation Comments PHOSPHOROUS (test code = PHOS) 2.5 MG/DL 2.5-4.9 N [id number] 06:46:00 Test Item Value Reference Range Interpretation Comments MAGNESIUM (test code = MAG) 2.3 MG/DL 1.8-2.4 N COMPREHENSIVE METABOLIC [id number] 06:41:00 Test Item Value Reference Range Interpretation Comments SODIUM (test code = NA) 143 mmol/L 134-147 N POTASSIUM (test code = K) 3.6 mmol/L 3.4-5.0 N CHLORIDE (test code = CL) 108 mmol/L 100-108 N CARBON DIOXIDE (test code = CO2) 32 mmol/L 21-32 N ANION GAP (test code = GAP) 3.0 GAP calc 4.0-15.0 L GLUCOSE (test code = GLU) 84 MG/DL 70-110 N BLOOD UREA NITROGEN (test code = 24 MG/DL 7-18 H BUN) GLOMERULAR FILTRATION RATE (test estGFR >60 code = GFR) CREATININE (test code = CREAT) MG/DL 0.8-1.3 TOTAL PROTEIN (test code = PROT) G/DL 6.4-8.2 ALBUMIN (test code = ALB) G/DL 3.4-5.0 GLOBULIN (test code = GLOB) GM/dL ALBUMIN/GLOBULIN RATIO (test RATIO 1.2-2.2 code = A/G) CALCIUM (test code = CA) 8.1 MG/DL 8.5-10.1 L BILIRUBIN TOTAL (test code = MG/DL 0.2-1.2 BILT) SGOT/AST (test code = AST) Unit/L 15-37 SGPT/ALT (test code = ALT) Unit/L 12-78 ALKALINE PHOSPHATASE TOTAL (test Unit/L 50-136 code = ALKP) [id number] 06:41:00 Test Item Value Reference Range Interpretation Comments PHOSPHOROUS (test code = PHOS) MG/DL 2.5-4.9 [id number] 06:41:00 Test Item Value Reference Range Interpretation Comments MAGNESIUM (test code = MAG) MG/DL 1.8-2.4 CBC W/AUTO [id number] 06:27:00 Test Item Value Reference Range Interpretation Comments WHITE BLOOD CELL (test code = WBC) 9.8 K/mm3 3.5-11.0 N RED BLOOD CELL (test code = RBC) 3.09 M/mm3 4.70-6.10 L HEMOGLOBIN (test code = HGB) 8.6 G/DL 12.3-15.9 L HEMATOCRIT (test code = HCT) 28.2 % 35.8-46.7 L MEAN CELL VOLUME (test code = MCV) 91.3 Fl 86.3-98.9 N MEAN CELL HGB (test code = MCH) 27.8 pg 28.9-34.4 L MEAN CELL HGB CONCETRATION (test 30.5 G/DL 32.1-34.5 L code = MCHC) RED CELL DISTRIBUTION WIDTH (test SD 11.5-14.5 H code = RDW) PLATELET COUNT (test code = PLT) 94 K/mm3 150-450 L MEAN PLATELET VOLUME (test code = fL 7.0-9.6 H MPV) NEUTROPHIL % (test code = NT%) % 40-76 H IMMATURE GRANULOCYTE % (test code % 0.0-5.0 N = IG%) LYMPHOCYTE % (test code = LY%) % 20.5-51.1 L MONOCYTE % (test code = MO%) % 1.7-9.3 N EOSINOPHIL % (test code = EO%) % 0.0-6.0 N BASOPHIL % (test code = BA%) % 0.0-2.0 N NUCLEATED RBC % (test code = /100WBC% 0.0-1.0 N NRBC%) NEUTROPHIL # (test code = NT#) K/mm3 1.8-7.6 H IMMATURE GRANULOCYTE # (test code x10 3/uL 0.00-0.03 H = IG#) LYMPHOCYTE # (test code = LY#) K/mm3 0.6-3.0 N MONOCYTE # (test code = MO#) K/mm3 0.2-1.5 N EOSINOPHIL # (test code = EO#) K/mm3 0.0-0.4 N BASOPHIL # (test code = BA#) K/mm3 0.0-0.2 N NUCLEATED RBC # (test code = K/mm3 0.00-0.01 N NRBC#) MANUAL DIFF REQUIRED (test code = DIFF/SCN CRITERIA MDIFF) VANCOMYCIN [id number] 21:19:00 Test Item Value Reference Range Interpretation Comments VANCOMYCIN TROUGH (test code = 14.7 mcG/ML 10-20 N VANCT) VANCOMYCIN [id number] 20:48:00 Test Item Value Reference Range Interpretation Comments VANCOMYCIN TROUGH (test code = 23.2 mcG/ML 10-20 H VANCT) QUANT[facility]ERON [id number] 07:16:00 Test Item Value Reference Range Interpretation Comments QUANTIFERON TEST (test INFCE Result: code = QFT) Incubation performed.INFCE Result Reference Range : () QUANTIFERON [id number] 07:16:00 Test Item Value Reference Range Interpretation Comments QUANTIFERON TEST (test 0.04 IU/mL () INFCE Result: code = QFT) Incubation performed.INFCE Result Referenc e Range: () QUANTIFERON [id number] 07:16:00 Test Item Value Reference Range Interpretation Comments QUANTIFERON TEST Indeterminate Negative A INFCE Resu lt: (test code = QFT) Incubation performed.INFCE Result Referenc e Range: ()Mitoge n (positive contr ol) gave low respon se. This mayoccur d ue to suboptimal pre-analytical handling.Perfor med At: [facility] [address] [place], [place] [id number] Jensen Ashraf MD Ph:[phone] rfor med At: PDLCA [facility] [place] [address] [place] [id number] Earle MD Ph:[phone] evio usly reported result: 0.04 IU/mLEdited by: INFCE on 01/04/20:0716~~ ~~~~ ~~~~~~~~~~~~~~~ ~~~~ ~~~~~~~~~~~~~~~ This is a CORRECTED REPOR T - XR CHEST 1 [id number] 08:40:00 Name: ARTHUR NUNEZ [place] : 1930 Age/S: 89 / M [id number] Unit #: [id number] Loc: [place] [address] Phys: Zully Umaña AGAPRINCESS Acct: [id number] Dis Date: Status: ADM IN PHONE #: [phone] Exam Date: 01/03/2020714 FAX #: Reason: f/u EXAMS: CPT: [id number] XR CHEST 1 V 17599 Fluoro Time: DAP (Gy m2): Air Kerma (mGy): Site ID: [id number] HISTORY: Pneumonia, septic shock COMPARISON: Chest x-ray of the prior day FINDINGS: No significant interval change to the bilateral upper lobe groundglass alveolitis and more dense focal right basilar consolidation. Small bibasilar pleural effusions are stabl e. No pneumothorax appreciated. The heart size is within normal limits. RightPICC line terminates appropriately at the SVC. Osseous structures are unremarkable. IMPRESSION: Stable multifocal alveolitis. at 0840 Reported and signed by: Aly Shelton M.D. CC: Coleen Ochoa MD; Zully Umaña PAGE 1 Signed Report Name: ARTHUR NUNEZ [facility] : 1930 Age/S: 89 / M [id number] Unit #: [id number] Loc: [place] [address] Phys: Zully Umaña Acct: [id number] Dis Date: Status: ADM IN PHONE #: [phone] Exam Date: 01/03/2020714 FAX #: Reason: f/u EXAMS: CPT: [id number] XR CHEST 1 V 11355 Fluoro Time: DAP (Gy m2): Air Kerma (mGy): <Continued> Technologist: Andrew Andrade RT(R)(CT) Trnscb Date/Time: 01/03/2020 (0840) [id number] Orig Print D/T: S: 01/03/2020 (0843) PAGE 2 Signed ReportCBC W/AUTO [id number] 06:48:00 Test Item Value Reference Range Interpretation Comments WHITE BLOOD CELL 14.1 K/mm3 3.5-11.0 H (test code = WBC) RED BLOOD CELL (test 3.30 M/mm3 4.70-6.10 L code = RBC) HEMOGLOBIN (test code 9.4 G/DL 12.3-15.9 L = HGB) HEMATOCRIT (test code 29.4 % 35.8-46.7 L = HCT) MEAN CELL VOLUME 89.1 Fl 86.3-98.9 N (test code = MCV) MEAN CELL HGB (test 28.5 pg 28.9-34.4 L code = MCH) MEAN CELL HGB 32.0 G/DL 32.1-34.5 L CONCETRATION (test code = MCHC) RED CELL DISTRIBUTION 17.3 SD 11.5-14.5 H WIDTH (test code = RDW) PLATELET COUNT (test 105 K/mm3 150-450 L code = PLT) MEAN PLATELET VOLUME 11.70 fL 7.0-9.6 H (test code = MPV) NEUTROPHIL % (test 87.7 % 40-76 H code = NT%) IMMATURE GRANULOCYTE 0.6 % 0.0-5.0 N % (test code = IG%) LYMPHOCYTE % (test 4.2 % 20.5-51.1 L code = LY%) MONOCYTE % (test code 6.2 % 1.7-9.3 N = MO%) EOSINOPHIL % (test 1.1 % 0.0-6.0 N code = EO%) BASOPHIL % (test code 0.2 % 0.0-2.0 N = BA%) NUCLEATED RBC % (test 0.2 /100WBC% 0.0-1.0 N code = NRBC%) NEUTROPHIL # (test 12.4 K/mm3 1.8-7.6 H code = NT#) IMMATURE GRANULOCYTE 0.09 x10 3/uL 0.00-0.03 H # (test code = IG#) LYMPHOCYTE # (test 0.6 K/mm3 0.6-3.0 N code = LY#) MONOCYTE # (test code 0.9 K/mm3 0.2-1.5 N = MO#) EOSINOPHIL # (test 0.2 K/mm3 0.0-0.4 N code = EO#) BASOPHIL # (test code 0.0 K/mm3 0.0-0.2 N = BA#) NUCLEATED RBC # (test 0.0 K/mm3 0.00-0.01 N code = NRBC#) MANUAL DIFF REQUIRED NO DIFF/SCN CRITERIA SLIDE Zenaida ROMERO (test code = MDIFF) CONSISTA NT WITH AUTO DIFFERENTI AL. BASIC METABOLIC [id number] 06:20:00 Test Item Value Reference Range Interpretation Comments SODIUM (test code = NA) 143 mmol/L 134-147 N POTASSIUM (test code = 4.4 mmol/L 3.4-5.0 N K) CHLORIDE (test code = 109 mmol/L 100-108 H CL) CARBON DIOXIDE (test 30 mmol/L 21-32 N code = CO2) ANION GAP (test code = 4.0 GAP calc 4.0-15.0 N GAP) GLUCOSE (test code = 80 MG/DL 70-110 N GLU) BLOOD UREA NITROGEN 19 MG/DL 7-18 H (test code = BUN) GLOMERULAR FILTRATION >=60 max estimate >60 RATE (test code = GFR) estGFR CREATININE (test code = 0.6 MG/DL 0.8-1.3 L CREAT) CALCIUM (test code = CA) 8.6 MG/DL 8.5-10.1 N [id number] 06:20:00 Test Item Value Reference Range Interpretation Comments MAGNESIUM (test code = MAG) 2.1 MG/DL 1.8-2.4 N CBC W/AUTO [id number] 06:11:00 Test Item Value Reference Range Interpretation Comments WHITE BLOOD CELL (test code = WBC) 14.1 K/mm3 3.5-11.0 H RED BLOOD CELL (test code = RBC) 3.30 M/mm3 4.70-6.10 L HEMOGLOBIN (test code = HGB) 9.4 G/DL 12.3-15.9 L HEMATOCRIT (test code = HCT) 29.4 % 35.8-46.7 L MEAN CELL VOLUME (test code = MCV) 89.1 Fl 86.3-98.9 N MEAN CELL HGB (test code = MCH) 28.5 pg 28.9-34.4 L MEAN CELL HGB CONCETRATION (test 32.0 G/DL 32.1-34.5 L code = MCHC) RED CELL DISTRIBUTION WIDTH (test SD 11.5-14.5 H code = RDW) PLATELET COUNT (test code = PLT) 105 K/mm3 150-450 L MEAN PLATELET VOLUME (test code = fL 7.0-9.6 H MPV) NEUTROPHIL % (test code = NT%) % 40-76 H IMMATURE GRANULOCYTE % (test code % 0.0-5.0 N = IG%) LYMPHOCYTE % (test code = LY%) % 20.5-51.1 L MONOCYTE % (test code = MO%) % 1.7-9.3 N EOSINOPHIL % (test code = EO%) % 0.0-6.0 N BASOPHIL % (test code = BA%) % 0.0-2.0 N NUCLEATED RBC % (test code = /100WBC% 0.0-1.0 N NRBC%) NEUTROPHIL # (test code = NT#) K/mm3 1.8-7.6 H IMMATURE GRANULOCYTE # (test code x10 3/uL 0.00-0.03 H = IG#) LYMPHOCYTE # (test code = LY#) K/mm3 0.6-3.0 N MONOCYTE # (test code = MO#) K/mm3 0.2-1.5 N EOSINOPHIL # (test code = EO#) K/mm3 0.0-0.4 N BASOPHIL # (test code = BA#) K/mm3 0.0-0.2 N NUCLEATED RBC # (test code = K/mm3 0.00-0.01 N NRBC#) MANUAL DIFF REQUIRED (test code = DIFF/SCN CRITERIA MDIFF) - XR CHEST 1 [id number] 17:53:00 Name: ARTHUR NUNEZ [place] : 1930 Age/S: 89 / M [address] [address] Unit #: [id number] Loc: [place] [address] Phys: Rob Victoria MD Acct: [id number] Dis Date: Status: ADM IN PHONE #: [phone] Exam Date: 01/02/2020 2675 FAX #: Reason: r/o pneumonia EXAMS: CPT: [id number] XR CHEST 1 V 30213 Fluoro Time: DAP (Gy m2): Air Kerma (mGy): EXAM: XR Chest 1 View INDICATION: r/o pneumonia LOCATION CODE: B2 COMPARISON: Chest radiograph dated 01/01/2020 TECHNIQUE: Frontal view of the chest was obtained. FINDINGS: Right PICC line is in unchanged position. Bilateral airspace opacities including masslike opacity at the right lung base are unchanged from prior. Bilateral pleural effusions areunchanged from prior. There is no pneumothorax. The cardiomediastinal silhouette is unchanged. No acute osseous abnormality is identified. IMPRESSION: No significant change from prior. at 1753 Reported and signed by: Birdie Mina MD CC: Rob Victoria MD; Coleen king MD PAGE 1 Signed Report Name: ARTHUR NUNEZ [place] : 1930 Age/S: 89 / M [address] [address] Unit #: [id number] Loc: [place], [place] [address]Umjr: Rob Victoria MD Acct: [id number] Dis Date: Status: ADM IN PHONE #: [phone] Exam Date: 01/02/2020 1741 FAX #: Reason: r/o pneumonia EXAMS: CPT: [id number] XRCHEST 1 V 62390 Fluoro Time: DAP (Gy m2): Air Kerma (mGy): <Continued> Technologist: Maddison Lanza RT(R) Trnscb Date/Time: 01/02/2020 (175) [email or web address] Orig Print D/T: S: 01/02/2020 (1756) PAGE 2 Signed ReportVANCOMYCIN [id number] 12:37:00 Test Item Value Reference Range Interpretation Comments VANCOMYCIN TROUGH (test code = 19.7 mcG/ML 10-20 VANCT) - XR CHEST 1 [id number] 12:33:00 Name: ARTHUR NUNEZ [place] : 1930 Age/S: 89 / M [address] [address] Unit #: [id number] Loc: [place] [address] Phys: Coleen Ochoa MD Acct: [id number] Dis Date: Status: ADM IN PHONE #: [phone] Exam Date: 01/01/2020 1203 FAX #: Reason: hypoxia EXAMS: CPT: [id number] XR CHEST 1 V 00541 Fluoro Time: DAP (Gy m2): Air Kerma (mGy): EXAMINATION: - XR CHEST 1 V. LOCATION: S17. HISTORY: Hypoxia, pneumonia, acute renal insufficiency, shock. COMPARISON: Chest x-ray 12/29/19. Chest CT 12/18/19. FINDINGS: Examination is limited due to portable technique. Cardiac silhouette/Mediastinal contour: Persistent enlargement of cardiac silhouette. Atherosclerotic calcification of aortic arch. Prosthetic cardiac valve. Loop recorder device overlying left chest. Lungs: Pulmonary vascular congestion with bilateral effusions. Large round right lung base opacity measuring 7.7 x8.6 cm, as seen on previous CT. Bilateral upper lobe interstitial airspace opacities. Osseous Structures: Degenerative changes of thoracic spine. Additional Findings:Right-sided PICC terminates over lower SVC. IMPRESSION: Large right lung base round opacity measuring 7.7 x 8.6 cm, corresponding to previously noted findings on CT. Bilateral upper lobe interstitial airspace opacity, compatible with infectious process. Pulmonary vascular congestion with small effusions. at 1233 Reported and signed by: Kylie Cameron M.D. CC: Coleen Ochoa MD PAGE 1 Signed Report Name: ARTHUR NUNEZ [place] : 1930 Age/S: 89 / M [address] [address] Unit #: [id number] Loc: [place] [address] Phys: Coleen Ochoa MD Acct: [id number] Dis Date: Status: ADM IN PHONE #: [phone] Exam Date: 01/01/2020 1203 FAX #: Reason: hypoxia EXAMS: CPT: [id number] XR CHEST 1 V 42619 Fluoro Time: DAP (Gy m2): Air Kerma (mGy): <Continued> Technologist: Viviane Olivas RT(R) Trnscb Date/Time: 01/01/2020 (7006) [email or web address] Orig Print D/T: S: 01/01/2020 (0093) PAGE 2 Signed ReportARTERIAL BLOOD [id number] 12:22:00 Test Item Value Reference Range Interpretation Comments ARTERIAL BLOOD GAS PH 7.49 pH units 7.35-7.45 H (test code = PHA) ARTERIAL BLOOD GAS PCO2 31 mmHg 35-45 L (test code = PCO2A) ARTERIAL BLOOD GAS PO2 63 mmHg 80-100 L (test code = PO2A) BICARBONATE TOTAL HCO3 23.5 mmol/L 22.0-26.0 N (test code = HCO3) BASE EXCESS (test code = 1.1 mmol/L -3.0-3.0 N BRAULIO) ABG O2 SATURATION (test 94 % 90-100 N code = SATA) FIO2 (test code = FIO2A) 50 % e 21-100 N ABG VENT MODE (test code Nasal Cannula Vent Mode = MODEA) Descript ABG SITE (test code = Right Radial ARTKIT DESCRIPTION SITEA) MODIFIED LILLIAM'S (test Yes Circ.CHK POSITIVE code = MODALL) BASIC METABOLIC [id number] 06:49:00 Test Item Value Reference Range Interpretation Comments SODIUM (test code = NA) 142 mmol/L 134-147 N POTASSIUM (test code = 4.3 mmol/L 3.4-5.0 N K) CHLORIDE (test code = 112 mmol/L 100-108 H CL) CARBON DIOXIDE (test 26 mmol/L 21-32 N code = CO2) ANION GAP (test code = 4.0 GAP calc 4.0-15.0 N GAP) GLUCOSE (test code = 99 MG/DL 70-110 N GLU) BLOOD UREA NITROGEN 16 MG/DL 7-18 N (test code = BUN) GLOMERULAR FILTRATION >=60 max estimate >60 RATE (test code = GFR) estGFR CREATININE (test code = 0.5 MG/DL 0.8-1.3 L CREAT) CALCIUM (test code = CA) 8.5 MG/DL 8.5-10.1 N CBC W/AUTO [id number] 06:35:00 Test Item Value Reference Range Interpretation Comments WHITE BLOOD CELL (test code = 15.2 K/mm3 3.5-11.0 H WBC) RED BLOOD CELL (test code = 3.16 M/mm3 4.70-6.10 L RBC) HEMOGLOBIN (test code = HGB) 9.0 G/DL 12.3-15.9 L HEMATOCRIT (test code = HCT) 28.3 % 35.8-46.7 L MEAN CELL VOLUME (test code = 89.6 Fl 86.3-98.9 N MCV) MEAN CELL HGB (test code = MCH) 28.5 pg 28.9-34.4 L MEAN CELL HGB CONCETRATION 31.8 G/DL 32.1-34.5 L (test code = MCHC) RED CELL DISTRIBUTION WIDTH 17.4 SD 11.5-14.5 H (test code = RDW) PLATELET COUNT (test code = 136 K/mm3 150-450 L PLT) MEAN PLATELET VOLUME (test code 10.90 fL 7.0-9.6 H = MPV) NEUTROPHIL % (test code = NT%) 87.9 % 40-76 H LYMPHOCYTE % (test code = LY%) 4.7 % 20.5-51.1 L MONOCYTE % (test code = MO%) 5.7 % 1.7-9.3 N EOSINOPHIL % (test code = EO%) 0.7 % 0.0-6.0 N BASOPHIL % (test code = BA%) 0.1 % 0.0-2.0 N NUCLEATED RBC % (test code = 0.0 /100WBC% 0.0-1.0 N NRBC%) NEUTROPHIL # (test code = NT#) 13.3 K/mm3 1.8-7.6 H IMMATURE GRANULOCYTE # (test 0.13 x10 3/uL 0.00-0.03 H code = IG#) LYMPHOCYTE # (test code = LY#) 0.7 K/mm3 0.6-3.0 N MONOCYTE # (test code = MO#) 0.9 K/mm3 0.2-1.5 N EOSINOPHIL # (test code = EO#) 0.1 K/mm3 0.0-0.4 N BASOPHIL # (test code = BA#) 0.0 K/mm3 0.0-0.2 N NUCLEATED RBC # (test code = 0.0 K/mm3 0.00-0.01 N NRBC#) MANUAL DIFF REQUIRED (test code NO DIFF/SCN CRITERIA = MDIFF) - [facility] [id number] 13:33:00 Name: ARTHUR NUNEZ [place] : 1930 Age/S: 89 / M [address] [address] Unit #: [id number] Loc: [place] [address] Phys: Lora Garcia Acct: [id number] Dis Date: Status: ADM IN PHONE #: [phone] Exam Date: 12/31/2019 1303 FAX #: Reason: leg tenderness and swelling EXAMS: CPT: [id number] [place] [address] Examination: Right lower extremity venous Doppler Location code: S17 Comparison: None Discussion: Clinical history is remarkable for leg swelling. Grayscale, color Doppler, and spectral wave form analysis of the right lower extremity venous system is being performed. The common femoral vein, superficial femoral vein, popliteal vein and tibial veins are morphologically normal. The venous system demonstrates appropriate venous waveforms, augmentation and compressibility. No subcutaneous soft tissue abnormality is seen. Impression: Negative right lower extremity venous Doppler. at 1333 Reported and signed by: Mayela Butler M.D. CC:Lora TA; Coleen Ochoa MD Technologist: Amos Mathis Trnorb Date/Time: 12/31/2019 (2325) [email or web address] PAGE 1 Signed Report Name: ARTHUR NUNEZ [facility] [place] : 1930 Age/S: 89 / M [address] [address] Unit #: [id number] Loc: [place] [address] Phys: Lora Garcia Acct: [id number] Dis Date: Status: ADM IN PHONE #: [phone] Exam Date: 12/31/2019 1303 FAX #: Reason: leg tenderness and swelling EXAMS: CPT: [id number] [address] <Continued> Orig Print D/T: S: 12/31/2019 (0088) Probe: PAGE 2 Signed ReportBASIC METABOLIC [id number] 07:30:00 Test Item Value Reference Range Interpretation Comments SODIUM (test code = NA) 142 mmol/L 134-147 N POTASSIUM (test code = 4.4 mmol/L 3.4-5.0 N K) CHLORIDE (test code = 111 mmol/L 100-108 H CL) CARBON DIOXIDE (test 26 mmol/L 21-32 N code = CO2) ANION GAP (test code = 5.0 GAP calc 4.0-15.0 N GAP) GLUCOSE (test code = 94 MG/DL 70-110 N GLU) BLOOD UREA NITROGEN 14 MG/DL 7-18 N (test code = BUN) GLOMERULAR FILTRATION >=60 max estimate >60 RATE (test code = GFR) estGFR CREATININE (test code = 0.6 MG/DL 0.8-1.3 L CREAT) CALCIUM (test code = CA) 8.3 MG/DL 8.5-10.1 L BASIC METABOLIC [id number] 06:11:00 Test Item Value Reference Range Interpretation Comments SODIUM (test code = NA) 136 mmol/L 134-147 N POTASSIUM (test code = 5.9 mmol/L 3.4-5.0 HH mmol /L K) CHLORIDE (test code = 109 mmol/L 100-108 H CL) CARBON DIOXIDE (test 24 mmol/L 21-32 N code = CO2) ANION GAP (test code = 3.0 GAP calc 4.0-15.0 L GAP) GLUCOSE (test code = 244 MG/DL 70-110 H GLU) BLOOD UREA NITROGEN 14 MG/DL 7-18 N (test code = BUN) GLOMERULAR FILTRATION >=60 max estimate >60 RATE (test code = GFR) estGFR CREATININE (test code = 0.6 MG/DL 0.8-1.3 L CREAT) CALCIUM (test code = CA) 8.0 MG/DL 8.5-10.1 L CBC W/AUTO [id number] 06:03:00 Test Item Value Reference Range Interpretation Comments WHITE BLOOD CELL (test code = 21.6 K/mm3 3.5-11.0 H WBC) RED BLOOD CELL (test code = 3.27 M/mm3 4.70-6.10 L RBC) HEMOGLOBIN (test code = HGB) 9.2 G/DL 12.3-15.9 L HEMATOCRIT (test code = HCT) 29.6 % 35.8-46.7 L MEAN CELL VOLUME (test code = 90.5 Fl 86.3-98.9 N MCV) MEAN CELL HGB (test code = MCH) 28.1 pg 28.9-34.4 L MEAN CELL HGB CONCETRATION 31.1 G/DL 32.1-34.5 L (test code = MCHC) RED CELL DISTRIBUTION WIDTH 17.5 SD 11.5-14.5 H (test code = RDW) PLATELET COUNT (test code = 140 K/mm3 150-450 L PLT) MEAN PLATELET VOLUME (test code 11.10 fL 7.0-9.6 H = MPV) NEUTROPHIL % (test code = NT%) 89.0 % 40-76 H LYMPHOCYTE % (test code = LY%) 3.8 % 20.5-51.1 L MONOCYTE % (test code = MO%) 5.1 % 1.7-9.3 N EOSINOPHIL % (test code = EO%) 1.0 % 0.0-6.0 N BASOPHIL % (test code = BA%) 0.1 % 0.0-2.0 N NUCLEATED RBC % (test code = 0.0 /100WBC% 0.0-1.0 N NRBC%) NEUTROPHIL # (test code = NT#) 19.2 K/mm3 1.8-7.6 H IMMATURE GRANULOCYTE # (test 0.21 x10 3/uL 0.00-0.03 H code = IG#) LYMPHOCYTE # (test code = LY#) 0.8 K/mm3 0.6-3.0 N MONOCYTE # (test code = MO#) 1.1 K/mm3 0.2-1.5 N EOSINOPHIL # (test code = EO#) 0.2 K/mm3 0.0-0.4 N BASOPHIL # (test code = BA#) 0.0 K/mm3 0.0-0.2 N NUCLEATED RBC # (test code = 0.0 K/mm3 0.00-0.01 N NRBC#) MANUAL DIFF REQUIRED (test code NO DIFF/SCN CRITERIA = MDIFF) VANCOMYCIN [id number] 00:04:00 Test Item Value Reference Range Interpretation Comments VANCOMYCIN TROUGH (test code = 10.6 mcG/ML 10-20 N VANCT) BASIC METABOLIC [id number] 05:55:00 Test Item Value Reference Range Interpretation Comments SODIUM (test code = NA) 141 mmol/L 134-147 N POTASSIUM (test code = 3.9 mmol/L 3.4-5.0 N K) CHLORIDE (test code = 112 mmol/L 100-108 H CL) CARBON DIOXIDE (test 25 mmol/L 21-32 N code = CO2) ANION GAP (test code = 4.0 GAP calc 4.0-15.0 N GAP) GLUCOSE (test code = 103 MG/DL 70-110 N GLU) BLOOD UREA NITROGEN 15 MG/DL 7-18 N (test code = BUN) GLOMERULAR FILTRATION >=60 max estimate >60 RATE (test code = GFR) estGFR CREATININE (test code = 0.5 MG/DL 0.8-1.3 L CREAT) CALCIUM (test code = CA) 8.1 MG/DL 8.5-10.1 L CBC W/AUTO [id number] 05:45:00 Test Item Value Reference Range Interpretation Comments WHITE BLOOD CELL (test code = 19.4 K/mm3 3.5-11.0 H WBC) RED BLOOD CELL (test code = 3.34 M/mm3 4.70-6.10 L RBC) HEMOGLOBIN (test code = HGB) 9.5 G/DL 12.3-15.9 L HEMATOCRIT (test code = HCT) 29.8 % 35.8-46.7 L MEAN CELL VOLUME (test code = 89.2 Fl 86.3-98.9 N MCV) MEAN CELL HGB (test code = MCH) 28.4 pg 28.9-34.4 L MEAN CELL HGB CONCETRATION 31.9 G/DL 32.1-34.5 L (test code = MCHC) RED CELL DISTRIBUTION WIDTH 17.3 SD 11.5-14.5 H (test code = RDW) PLATELET COUNT (test code = 139 K/mm3 150-450 L PLT) MEAN PLATELET VOLUME (test code 11.00 fL 7.0-9.6 H = MPV) NEUTROPHIL % (test code = NT%) 88.7 % 40-76 H LYMPHOCYTE % (test code = LY%) 4.5 % 20.5-51.1 L MONOCYTE % (test code = MO%) 4.8 % 1.7-9.3 N EOSINOPHIL % (test code = EO%) 1.0 % 0.0-6.0 N BASOPHIL % (test code = BA%) 0.2 % 0.0-2.0 N NUCLEATED RBC % (test code = 0.0 /100WBC% 0.0-1.0 N NRBC%) NEUTROPHIL # (test code = NT#) 17.2 K/mm3 1.8-7.6 H IMMATURE GRANULOCYTE # (test 0.16 x10 3/uL 0.00-0.03 H code = IG#) LYMPHOCYTE # (test code = LY#) 0.9 K/mm3 0.6-3.0 N MONOCYTE # (test code = MO#) 0.9 K/mm3 0.2-1.5 N EOSINOPHIL # (test code = EO#) 0.2 K/mm3 0.0-0.4 N BASOPHIL # (test code = BA#) 0.0 K/mm3 0.0-0.2 N NUCLEATED RBC # (test code = 0.0 K/mm3 0.00-0.01 N NRBC#) MANUAL DIFF REQUIRED (test code NO DIFF/SCN CRITERIA = MDIFF) - XR CHEST 1 [id number] 16:07:00 Name: ARTHUR NUNEZ [place] : 1930 Age/S: 89 / M [address] [address] Unit #: [id number] Loc: [place] [address] Phys: Lora Garcia Acct: [id number] Dis Date: Status: ADM IN PHONE #: [phone] Exam Date: 12/29/2019 5988 FAX #: Reason: shortness of breath EXAMS: CPT: [id number] XR CHEST 1 V 30478 Fluoro Time: DAP (Gy m2): Air Kerma (mGy): Site ID: [id number] EXAMINATION: - XRCHEST 1 V. HISTORY: shortness of breath . COMPARISON: December 28, 2019. Findings: There are extensive bilateral infiltrates in the lungs worse on the right side, minimally increased compared to the previous exam.. The heart size is at the upper limitsof normal. There is no pneumothorax. There is a small right effusion. The mediastinum and lokesh appear unremarkable. 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 Impression: Extensive pulmonary infiltrates, minimally increased from prior exam. at 1607 Reported and signed by: Chuy Cooley MD CC: Lora TA; Coleen Ochoa MD PAGE 1 Signed Report Name: ARTHUR NUNEZ [place] : 1930 Age/S:89 / M [address] [address] Unit #: [id number] Loc: [place] [address] Phys: Lora Garcia Acct: [id number] Dis Date: Status: ADM IN PHONE #: [phone] Exam Date: 12/29/2019 1557 FAX #: Reason: shortness of breath EXAMS: CPT: [id number] XR CHEST 1 V 94010 Fluoro Time: DAP (Gy m2): Air Kerma (mGy): <Continued> Technologist: Lisa Lujan, RT(R)(CT)(MRI) Trnscb Date/Time: 12/29/2019 (1607) Marie Orig Print D/T: S: 12/29/2019 (8900) PAGE 2 Signed ReportQUANTIFERON TEST 2019-12-29 08:12:00 Test Item Value Reference Range Interpretation Comments QUANTIFERON TEST (test INFCE Result: code = QFT) Incubation performed.INFCE Result Reference Range : () QUANTIFERON [id number] 08:12:00 Test Item Value Reference Range Interpretation Comments QUANTIFERON TEST (test 0.24 IU/mL () INFCE Result: code = QFT) Incubation performed.INFCE Result Referenc e Range: () QUANTIFERON [id number] 08:12:00 Test Item Value Reference Range Interpretation Comments QUANTIFERON TEST Indeterminate Negative A INFCE Resu lt: (test code = QFT) Incubation performed.INFCE Result Referenc e Range: ()Mitoge n (positive contr ol) gave low respon se. [place] suboptimal pre-analytical handling.Perfor med At: [facility] [address] [place], [place] [id number] Kyle L MD Ph:[phone] rfor med At: PDLCA [facility] [place] [address] [place] [id number] Earle MD Ph:[phone] kailashio usly reported result: 0.24 IU/mLEdited by: INFCE on 12/29/19:0812~~ ~~~~ ~~~~~~~~~~~~~~~ ~~~~ ~~~~~~~~~~~~~~~ This is a CORRECTED REPOR T BASIC METABOLIC [id number] 06:18:00 Test Item Value Reference Range Interpretation Comments SODIUM (test code = NA) 144 mmol/L 134-147 N POTASSIUM (test code = 4.1 mmol/L 3.4-5.0 N K) CHLORIDE (test code = 114 mmol/L 100-108 H CL) CARBON DIOXIDE (test 23 mmol/L 21-32 N code = CO2) ANION GAP (test code = 7.0 GAP calc 4.0-15.0 N GAP) GLUCOSE (test code = 133 MG/DL 70-110 H GLU) BLOOD UREA NITROGEN 16 MG/DL 7-18 N (test code = BUN) GLOMERULAR FILTRATION >=60 max estimate >60 RATE (test code = GFR) estGFR CREATININE (test code = 0.6 MG/DL 0.8-1.3 L CREAT) CALCIUM (test code = CA) 7.7 MG/DL 8.5-10.1 L CBC W/AUTO [id number] 06:10:00 Test Item Value Reference Range Interpretation Comments WHITE BLOOD CELL (test code = 16.7 K/mm3 3.5-11.0 H WBC) RED BLOOD CELL (test code = 3.09 M/mm3 4.70-6.10 L RBC) HEMOGLOBIN (test code = HGB) 8.8 G/DL 12.3-15.9 L HEMATOCRIT (test code = HCT) 28.1 % 35.8-46.7 L MEAN CELL VOLUME (test code = 90.9 Fl 86.3-98.9 N MCV) MEAN CELL HGB (test code = MCH) 28.5 pg 28.9-34.4 L MEAN CELL HGB CONCETRATION 31.3 G/DL 32.1-34.5 L (test code = MCHC) RED CELL DISTRIBUTION WIDTH 16.6 SD 11.5-14.5 H (test code = RDW) PLATELET COUNT (test code = 120 K/mm3 150-450 L PLT) MEAN PLATELET VOLUME (test code 10.70 fL 7.0-9.6 H = MPV) NEUTROPHIL % (test code = NT%) 88.3 % 40-76 H LYMPHOCYTE % (test code = LY%) 5.0 % 20.5-51.1 L MONOCYTE % (test code = MO%) 5.3 % 1.7-9.3 N EOSINOPHIL % (test code = EO%) 0.5 % 0.0-6.0 N BASOPHIL % (test code = BA%) 0.1 % 0.0-2.0 N NUCLEATED RBC % (test code = 0.0 /100WBC% 0.0-1.0 N NRBC%) NEUTROPHIL # (test code = NT#) 14.8 K/mm3 1.8-7.6 H IMMATURE GRANULOCYTE # (test 0.13 x10 3/uL 0.00-0.03 H code = IG#) LYMPHOCYTE # (test code = LY#) 0.8 K/mm3 0.6-3.0 N MONOCYTE # (test code = MO#) 0.9 K/mm3 0.2-1.5 N EOSINOPHIL # (test code = EO#) 0.1 K/mm3 0.0-0.4 N BASOPHIL # (test code = BA#) 0.0 K/mm3 0.0-0.2 N NUCLEATED RBC # (test code = 0.0 K/mm3 0.00-0.01 N NRBC#) MANUAL DIFF REQUIRED (test code NO DIFF/SCN CRITERIA = MDIFF) - XR CHEST 1 [id number] 14:42:00 Name: ARTHUR NUNEZ [facility] : 1930 Age/S: 89 / M [address] [address] Unit #: [id number] Loc: [place] [address] Phys: Saurabh Esparza MD Acct: [id number] Dis Date: Status: ADM IN PHONE #: [phone] Exam Date: 12/28/2019 4963 FAX #: Reason: hemoptysis EXAMS: CPT: [id number] XR CHEST 1 V 55760 Fluoro Time: DAP (Gy m2): Air Kerma (mGy): EXAMINATION: - XR CHEST 1 V. LOCATION: B2. HISTORY: hemoptysis . COMPARISON: Radiograph dated 12/21/2019. TECHNIQUE: Single AP view of the chest was obtained. FINDINGS: Right PICC is unchanged in position. The heart is normal in size. Electronic device overlies the left lower thorax. 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 Bilateral perihilar and bibasilar opacities are present, increased since prior exam. There is a small right pleural effusion, unchanged. No new osseous abnormality is identified. IMPRESSION: Bilateral perihilar and bibasilar infiltrates, increased since prior exam. Small right pleural effusion, unchanged. at 1442 Reported and signed by: Erik Rodriges M.D. CC: Saurabh Esparza MD; Coleen Ochoa MD PAGE 1 Signed Report Name: ARTHUR NUNEZ [place] : 1930 Age/S: 89 / M [address] [address] Unit #: [id number] Loc: [place] [address] Phys: Saurabh Esparza MD Acct: [id number] Dis Date: Status: ADM IN PHONE #: [phone] Exam Date: 12/28/2019 1425 FAX #: Reason: hemoptysis EXAMS: CPT: [id number] XR CHEST 1 V 69027 Fluoro Time: DAP (Gy m2): Air Kerma (mGy): <Continued> Technologist: Candelaria Jay, RT(R) Trnscb Date/Time: 12/28/2019 (1442) [email or web address] Orig Print D/T: S: 12/28/2019 (7943) PAGE 2 Signed ReportBASIC METABOLIC [id number] 07:34:00 Test Item Value Reference Range Interpretation Comments SODIUM (test code = NA) 144 mmol/L 134-147 N POTASSIUM (test code = 3.3 mmol/L 3.4-5.0 L K) CHLORIDE (test code = 115 mmol/L 100-108 H CL) CARBON DIOXIDE (test 24 mmol/L 21-32 N code = CO2) ANION GAP (test code = 5.0 GAP calc 4.0-15.0 N GAP) GLUCOSE (test code = 84 MG/DL 70-110 N GLU) BLOOD UREA NITROGEN 16 MG/DL 7-18 N (test code = BUN) GLOMERULAR FILTRATION >=60 max estimate >60 RATE (test code = GFR) estGFR CREATININE (test code = 0.6 MG/DL 0.8-1.3 L CREAT) CALCIUM (test code = CA) 8.0 MG/DL 8.5-10.1 L COMPREHENSIVE METABOLIC [id number] 07:34:00 Test Item Value Reference Range Interpretation Comments TOTAL PROTEIN (test code = PROT) 4.5 G/DL 6.4-8.2 L ALBUMIN (test code = ALB) 1.6 G/DL 3.4-5.0 L GLOBULIN (test code = GLOB) 2.9 GM/dL ALBUMIN/GLOBULIN RATIO (test code 0.6 RATIO 1.2-2.2 L = A/G) BILIRUBIN TOTAL (test code = BILT) 0.50 MG/DL 0.2-1.2 N SGOT/AST (test code = AST) 16 Unit/L 15-37 N SGPT/ALT (test code = ALT) 27 Unit/L 12-78 N ALKALINE PHOSPHATASE TOTAL (test 61 Unit/L 50-136 N code = ALKP) CBC W/AUTO [id number] 07:20:00 Test Item Value Reference Range Interpretation Comments WHITE BLOOD CELL (test code = 14.4 K/mm3 3.5-11.0 H WBC) RED BLOOD CELL (test code = 3.35 M/mm3 4.70-6.10 L RBC) HEMOGLOBIN (test code = HGB) 9.4 G/DL 12.3-15.9 L HEMATOCRIT (test code = HCT) 30.5 % 35.8-46.7 L MEAN CELL VOLUME (test code = 91.0 Fl 86.3-98.9 N MCV) MEAN CELL HGB (test code = MCH) 28.1 pg 28.9-34.4 L MEAN CELL HGB CONCETRATION 30.8 G/DL 32.1-34.5 L (test code = MCHC) RED CELL DISTRIBUTION WIDTH 16.0 SD 11.5-14.5 H (test code = RDW) PLATELET COUNT (test code = 166 K/mm3 150-450 N PLT) MEAN PLATELET VOLUME (test code 10.20 fL 7.0-9.6 H = MPV) NEUTROPHIL % (test code = NT%) 85.0 % 40-76 H LYMPHOCYTE % (test code = LY%) 6.2 % 20.5-51.1 L MONOCYTE % (test code = MO%) 6.1 % 1.7-9.3 N EOSINOPHIL % (test code = EO%) 1.6 % 0.0-6.0 N BASOPHIL % (test code = BA%) 0.1 % 0.0-2.0 N NUCLEATED RBC % (test code = 0.0 /100WBC% 0.0-1.0 N NRBC%) NEUTROPHIL # (test code = NT#) 12.3 K/mm3 1.8-7.6 H IMMATURE GRANULOCYTE # (test 0.15 x10 3/uL 0.00-0.03 H code = IG#) LYMPHOCYTE # (test code = LY#) 0.9 K/mm3 0.6-3.0 N MONOCYTE # (test code = MO#) 0.9 K/mm3 0.2-1.5 N EOSINOPHIL # (test code = EO#) 0.2 K/mm3 0.0-0.4 N BASOPHIL # (test code = BA#) 0.0 K/mm3 0.0-0.2 N NUCLEATED RBC # (test code = 0.0 K/mm3 0.00-0.01 N NRBC#) MANUAL DIFF REQUIRED (test code NO DIFF/SCN CRITERIA = MDIFF) VANCOMYCIN [id number] 00:53:00 Test Item Value Reference Range Interpretation Comments VANCOMYCIN TROUGH (test code = 14.6 mcG/ML 10-20 N VANCT) - XR SWLW FUNC W/C [id number] 15:19:00 Name: ARTHUR NUNEZ [place] : 1930 Age/S: 89 / M [id number] [place] Unit #: [id number] Loc: [place] [address] Phys: Coleen Ochoa MD Acct: [id number] Dis Date: Status: ADM IN PHONE #: [phone] Exam Date: 12/25/2019 8157 FAX #: Reason: MBS EXAMS: CPT: [id number] XR SWLW FUNC W/C V 01430 Fluoro Time: 114 SEC DAP (Gy m2): Air Kerma (mGy): EXAMINATION: - XR SWLW FUNC W/C V. LOCATION: S17. HISTORY: MBS. Difficulty swallowing, dysphagia. COMPARISON: None. FINDINGS: Fluoroscopic assistance was provided to speech therapy. Images were obtained from oropharynx to thoracic inlet while patient ingested barium coated food and liquid. Please see separately dictated speech therapy note for report and recommendation. Fluoroscopic time: 114 seconds. 3.788 mGy. IMPRESSION: Please see separately dictated speech therapy note for report and recommendation. at 1519 Reported and signed by: Kylie Cameron M.D. CC: Coleen Ochoa MD PAGE 1 Signed Report Name: ARTHUR NUNEZ [place] : 1930 Age/S: 89 / M [id number] [address] [place] Unit #: [id number] Loc: [place] [address] Phys: Coleen Ochoa MD Acct: [id number] Dis Date: Status: ADM IN PHONE #: [phone] Exam Date: 12/25/2019 2812 FAX #: Reason: MBS EXAMS: CPT: [id number] XR SWLW FUNC W/C V 60981 Fluoro Time: 114 SEC DAP (Gy m2): Air Kerma (mGy): <Cont inued> Technologist: Candelaria Jay, RT(R) Trnscb Date/Time: 12/25/2019 (151) [email or web address] Orig Print D/T: S: 12/25/2019 ([id number]) PAGE 2 Signed ReportCOMPREHENSIVE METABOLIC [id number] 05:08:00 Test Item Value Reference Range Interpretation Comments SODIUM (test code = NA) 147 mmol/L 134-147 N POTASSIUM (test code = 3.6 mmol/L 3.4-5.0 N K) CHLORIDE (test code = 119 mmol/L 100-108 H CL) CARBON DIOXIDE (test 25 mmol/L 21-32 N code = CO2) ANION GAP (test code = 3.0 GAP calc 4.0-15.0 L GAP) GLUCOSE (test code = 98 MG/DL 70-110 N GLU) BLOOD UREA NITROGEN 25 MG/DL 7-18 H (test code = BUN) GLOMERULAR FILTRATION >=60 max estimate >60 RATE (test code = GFR) estGFR CREATININE (test code = 0.6 MG/DL 0.8-1.3 L CREAT) TOTAL PROTEIN (test code 4.5 G/DL 6.4-8.2 L = PROT) ALBUMIN (test code = 1.5 G/DL 3.4-5.0 L ALB) GLOBULIN (test code = 3.0 GM/dL GLOB) ALBUMIN/GLOBULIN RATIO 0.5 RATIO 1.2-2.2 L (test code = A/G) CALCIUM (test code = CA) 8.2 MG/DL 8.5-10.1 L BILIRUBIN TOTAL (test 0.30 MG/DL 0.2-1.2 N code = BILT) SGOT/AST (test code = 26 Unit/L 15-37 N AST) SGPT/ALT (test code = 28 Unit/L 12-78 N ALT) ALKALINE PHOSPHATASE 60 Unit/L 50-136 N TOTAL (test code = ALKP) CBC W/AUTO [id number] 04:51:00 Test Item Value Reference Range Interpretation Comments WHITE BLOOD CELL (test code = 9.2 K/mm3 3.5-11.0 N WBC) RED BLOOD CELL (test code = 3.40 M/mm3 4.70-6.10 L RBC) HEMOGLOBIN (test code = HGB) 9.5 G/DL 12.3-15.9 L HEMATOCRIT (test code = HCT) 30.2 % 35.8-46.7 L MEAN CELL VOLUME (test code = 88.8 Fl 86.3-98.9 N MCV) MEAN CELL HGB (test code = MCH) 27.9 pg 28.9-34.4 L MEAN CELL HGB CONCETRATION 31.5 G/DL 32.1-34.5 L (test code = MCHC) RED CELL DISTRIBUTION WIDTH 15.0 SD 11.5-14.5 H (test code = RDW) PLATELET COUNT (test code = 155 K/mm3 150-450 N PLT) MEAN PLATELET VOLUME (test code 10.30 fL 7.0-9.6 H = MPV) NEUTROPHIL % (test code = NT%) 83.4 % 40-76 H LYMPHOCYTE % (test code = LY%) 6.6 % 20.5-51.1 L MONOCYTE % (test code = MO%) 8.9 % 1.7-9.3 N EOSINOPHIL % (test code = EO%) 0.0 % 0.0-6.0 N BASOPHIL % (test code = BA%) 0.1 % 0.0-2.0 N NUCLEATED RBC % (test code = 0.0 /100WBC% 0.0-1.0 N NRBC%) NEUTROPHIL # (test code = NT#) 7.7 K/mm3 1.8-7.6 H IMMATURE GRANULOCYTE # (test 0.09 x10 3/uL 0.00-0.03 H code = IG#) LYMPHOCYTE # (test code = LY#) 0.6 K/mm3 0.6-3.0 N MONOCYTE # (test code = MO#) 0.8 K/mm3 0.2-1.5 N EOSINOPHIL # (test code = EO#) 0.0 K/mm3 0.0-0.4 N BASOPHIL # (test code = BA#) 0.0 K/mm3 0.0-0.2 N NUCLEATED RBC # (test code = 0.0 K/mm3 0.00-0.01 N NRBC#) MANUAL DIFF REQUIRED (test code NO DIFF/SCN CRITERIA = MDIFF) CORTISOL [id number] 15:11:00 Test Item Value Reference Range Interpretation Comments CORTISOL AM (test code 4.2 ug/dL 6.2-19.4 L Perfo rmed At: HD = CORTAM) [facility] [address] [id number] rory Ashraf MD Ph:[phone] CBC W/AUTO [id number] 13:07:00 Test Item Value Reference Range Interpretation Comments WHITE BLOOD CELL 8.9 K/mm3 3.5-11.0 N (test code = WBC) RED BLOOD CELL (test 3.59 M/mm3 4.70-6.10 L code = RBC) HEMOGLOBIN (test code 10.1 G/DL 12.3-15.9 L = HGB) HEMATOCRIT (test code 31.1 % 35.8-46.7 L = HCT) MEAN CELL VOLUME 86.6 Fl 86.3-98.9 N (test code = MCV) MEAN CELL HGB (test 28.1 pg 28.9-34.4 L code = MCH) MEAN CELL HGB 32.5 G/DL 32.1-34.5 N CONCETRATION (test code = MCHC) RED CELL DISTRIBUTION 14.4 SD 11.5-14.5 N WIDTH (test code = RDW) PLATELET COUNT (test 135 K/mm3 150-450 L code = PLT) MEAN PLATELET VOLUME 10.00 fL 7.0-9.6 H (test code = MPV) NEUTROPHIL % (test 91.3 % 40-76 H code = NT%) LYMPHOCYTE % (test 4.5 % 20.5-51.1 L code = LY%) MONOCYTE % (test code 3.4 % 1.7-9.3 N = MO%) EOSINOPHIL % (test 0.0 % 0.0-6.0 N code = EO%) BASOPHIL % (test code 0.0 % 0.0-2.0 N = BA%) NUCLEATED RBC % (test 0.0 /100WBC% 0.0-1.0 N code = NRBC%) NEUTROPHIL # (test 8.1 K/mm3 1.8-7.6 H code = NT#) IMMATURE GRANULOCYTE 0.07 x10 3/uL 0.00-0.03 H # (test code = IG#) LYMPHOCYTE # (test 0.4 K/mm3 0.6-3.0 L code = LY#) MONOCYTE # (test code 0.3 K/mm3 0.2-1.5 N = MO#) EOSINOPHIL # (test 0.0 K/mm3 0.0-0.4 N code = EO#) BASOPHIL # (test code 0.0 K/mm3 0.0-0.2 N = BA#) NUCLEATED RBC # (test 0.0 K/mm3 0.00-0.01 N code = NRBC#) MANUAL DIFF REQUIRED NO DIFF/SCN CRITERIA SLIDE R VIBHAW (test code = MDIFF) CONSISTA NT WITH AUTO DIFFERENTI AL. COMPREHENSIVE METABOLIC [id number] 11:54:00 Test Item Value Reference Range Interpretation Comments SODIUM (test code = NA) 145 mmol/L 134-147 N POTASSIUM (test code = 3.5 mmol/L 3.4-5.0 N K) CHLORIDE (test code = 116 mmol/L 100-108 H CL) CARBON DIOXIDE (test 22 mmol/L 21-32 N code = CO2) ANION GAP (test code = 7.0 GAP calc 4.0-15.0 N GAP) GLUCOSE (test code = 127 MG/DL 70-110 H GLU) BLOOD UREA NITROGEN 23 MG/DL 7-18 H (test code = BUN) GLOMERULAR FILTRATION >=60 max estimate >60 RATE (test code = GFR) estGFR CREATININE (test code = 0.7 MG/DL 0.8-1.3 L CREAT) TOTAL PROTEIN (test code 4.8 G/DL 6.4-8.2 L = PROT) ALBUMIN (test code = 1.6 G/DL 3.4-5.0 L ALB) GLOBULIN (test code = 3.2 GM/dL GLOB) ALBUMIN/GLOBULIN RATIO 0.5 RATIO 1.2-2.2 L (test code = A/G) CALCIUM (test code = CA) 8.0 MG/DL 8.5-10.1 L BILIRUBIN TOTAL (test 0.40 MG/DL 0.2-1.2 N code = BILT) SGOT/AST (test code = 19 Unit/L 15-37 N AST) SGPT/ALT (test code = 22 Unit/L 12-78 N ALT) ALKALINE PHOSPHATASE 63 Unit/L 50-136 N TOTAL (test code = ALKP) COMPREHENSIVE METABOLIC [id number] 11:51:00 Test Item Value Reference Range Interpretation Comments SODIUM (test code = NA) 145 mmol/L 134-147 N POTASSIUM (test code = K) 3.5 mmol/L 3.4-5.0 N CHLORIDE (test code = CL) 116 mmol/L 100-108 H CARBON DIOXIDE (test code = CO2) 22 mmol/L 21-32 N ANION GAP (test code = GAP) 7.0 GAP calc 4.0-15.0 N GLUCOSE (test code = GLU) 127 MG/DL 70-110 H BLOOD UREA NITROGEN (test code = 23 MG/DL 7-18 H BUN) GLOMERULAR FILTRATION RATE (test estGFR >60 code = GFR) CREATININE (test code = CREAT) MG/DL 0.8-1.3 TOTAL PROTEIN (test code = PROT) G/DL 6.4-8.2 ALBUMIN (test code = ALB) G/DL 3.4-5.0 GLOBULIN (test code = GLOB) GM/dL ALBUMIN/GLOBULIN RATIO (test RATIO 1.2-2.2 code = A/G) CALCIUM (test code = CA) 8.0 MG/DL 8.5-10.1 L BILIRUBIN TOTAL (test code = MG/DL 0.2-1.2 BILT) SGOT/AST (test code = AST) Unit/L 15-37 SGPT/ALT (test code = ALT) Unit/L 12-78 ALKALINE PHOSPHATASE TOTAL (test Unit/L 50-136 code = ALKP) CBC W/AUTO [id number] 11:45:00 Test Item Value Reference Range Interpretation Comments WHITE BLOOD CELL (test code = WBC) 8.9 K/mm3 3.5-11.0 N RED BLOOD CELL (test code = RBC) 3.59 M/mm3 4.70-6.10 L HEMOGLOBIN (test code = HGB) 10.1 G/DL 12.3-15.9 L HEMATOCRIT (test code = HCT) 31.1 % 35.8-46.7 L MEAN CELL VOLUME (test code = MCV) 86.6 Fl 86.3-98.9 N MEAN CELL HGB (test code = MCH) 28.1 pg 28.9-34.4 L MEAN CELL HGB CONCETRATION (test 32.5 G/DL 32.1-34.5 N code = MCHC) RED CELL DISTRIBUTION WIDTH (test SD 11.5-14.5 N code = RDW) PLATELET COUNT (test code = PLT) 135 K/mm3 150-450 L MEAN PLATELET VOLUME (test code = fL 7.0-9.6 H MPV) NEUTROPHIL % (test code = NT%) % 40-76 H LYMPHOCYTE % (test code = LY%) % 20.5-51.1 L MONOCYTE % (test code = MO%) % 1.7-9.3 N EOSINOPHIL % (test code = EO%) % 0.0-6.0 N BASOPHIL % (test code = BA%) % 0.0-2.0 N NUCLEATED RBC % (test code = /100WBC% 0.0-1.0 N NRBC%) NEUTROPHIL # (test code = NT#) K/mm3 1.8-7.6 H IMMATURE GRANULOCYTE # (test code x10 3/uL 0.00-0.03 H = IG#) LYMPHOCYTE # (test code = LY#) K/mm3 0.6-3.0 L MONOCYTE # (test code = MO#) K/mm3 0.2-1.5 N EOSINOPHIL # (test code = EO#) K/mm3 0.0-0.4 N BASOPHIL # (test code = BA#) K/mm3 0.0-0.2 N NUCLEATED RBC # (test code = K/mm3 0.00-0.01 N NRBC#) MANUAL DIFF REQUIRED (test code = DIFF/SCN CRITERIA MDIFF) VANCOMYCIN [id number] 06:14:00 Test Item Value Reference Range Interpretation Comments VANCOMYCIN TROUGH (test code = 25.0 mcG/ML 10-20 H VANCT) PLATELET [id number] 05:59:00 Test Item Value Reference Range Interpretation Comments PLATELET COUNT (test code = PLT) 175 K/mm3 150-450 N BASIC METABOLIC [id number] 04:43:00 Test Item Value Reference Range Interpretation Comments SODIUM (test code = NA) 145 mmol/L 134-147 N POTASSIUM (test code = 3.4 mmol/L 3.4-5.0 N K) CHLORIDE (test code = 116 mmol/L 100-108 H CL) CARBON DIOXIDE (test 24 mmol/L 21-32 N code = CO2) ANION GAP (test code = 5.0 GAP calc 4.0-15.0 N GAP) GLUCOSE (test code = 149 MG/DL 70-110 H GLU) BLOOD UREA NITROGEN 22 MG/DL 7-18 H (test code = BUN) GLOMERULAR FILTRATION >=60 max estimate >60 RATE (test code = GFR) estGFR CREATININE (test code = 0.7 MG/DL 0.8-1.3 L CREAT) CALCIUM (test code = CA) 8.7 MG/DL 8.5-10.1 N BASIC METABOLIC [id number] 04:39:00 Test Item Value Reference Range Interpretation Comments SODIUM (test code = NA) 145 mmol/L 134-147 N POTASSIUM (test code = K) 3.4 mmol/L 3.4-5.0 N CHLORIDE (test code = CL) 116 mmol/L 100-108 H CARBON DIOXIDE (test code = CO2) 24 mmol/L 21-32 N ANION GAP (test code = GAP) 5.0 GAP calc 4.0-15.0 N GLUCOSE (test code = GLU) 149 MG/DL 70-110 H BLOOD UREA NITROGEN (test code = 22 MG/DL 7-18 H BUN) GLOMERULAR FILTRATION RATE (test estGFR >60 code = GFR) CREATININE (test code = CREAT) MG/DL 0.8-1.3 CALCIUM (test code = CA) 8.7 MG/DL 8.5-10.1 N CBC W/AUTO [id number] 04:33:00 Test Item Value Reference Range Interpretation Comments WHITE BLOOD CELL (test code = 9.1 K/mm3 3.5-11.0 N WBC) RED BLOOD CELL (test code = 3.19 M/mm3 4.70-6.10 L RBC) HEMOGLOBIN (test code = HGB) 8.8 G/DL 12.3-15.9 L HEMATOCRIT (test code = HCT) 28.1 % 35.8-46.7 L MEAN CELL VOLUME (test code = 88.1 Fl 86.3-98.9 N MCV) MEAN CELL HGB (test code = MCH) 27.6 pg 28.9-34.4 L MEAN CELL HGB CONCETRATION 31.3 G/DL 32.1-34.5 L (test code = MCHC) RED CELL DISTRIBUTION WIDTH 14.5 SD 11.5-14.5 N (test code = RDW) PLATELET COUNT (test code = 159 K/mm3 150-450 N PLT) MEAN PLATELET VOLUME (test code 10.00 fL 7.0-9.6 H = MPV) NEUTROPHIL % (test code = NT%) 92.6 % 40-76 H LYMPHOCYTE % (test code = LY%) 3.6 % 20.5-51.1 L MONOCYTE % (test code = MO%) 2.7 % 1.7-9.3 N EOSINOPHIL % (test code = EO%) 0.0 % 0.0-6.0 N BASOPHIL % (test code = BA%) 0.1 % 0.0-2.0 N NUCLEATED RBC % (test code = 0.0 /100WBC% 0.0-1.0 N NRBC%) NEUTROPHIL # (test code = NT#) 8.5 K/mm3 1.8-7.6 H IMMATURE GRANULOCYTE # (test 0.09 x10 3/uL 0.00-0.03 H code = IG#) LYMPHOCYTE # (test code = LY#) 0.3 K/mm3 0.6-3.0 L MONOCYTE # (test code = MO#) 0.3 K/mm3 0.2-1.5 N EOSINOPHIL # (test code = EO#) 0.0 K/mm3 0.0-0.4 N BASOPHIL # (test code = BA#) 0.0 K/mm3 0.0-0.2 N NUCLEATED RBC # (test code = 0.0 K/mm3 0.00-0.01 N NRBC#) MANUAL DIFF REQUIRED (test code NO DIFF/SCN CRITERIA = MDIFF) - XR CHEST 1 [id number] 17:06:00 Name: ARTHUR NUNEZ Hopwood : 1930 Age/S: 89 / M [address] Unit #: [id number] Loc: [place] [address] Phys: Saurabh Esparza MD Acct: [id number] Dis Date: Status: ADM IN PHONE #: [phone] Exam Date: 12/21/2019 1703 FAX #: Reason: sob EXAMS: CPT: [id number] XR CHEST 1 V 61522 Fluoro Time: DAP (Gy m2): Air Kerma (mGy): INDICATIONS: sob COMPARISON: Comparison is made with prior study of 12/20/2019 at 1300 hours Location: T18 A single portable AP view of the chest demonstrates a normal heart size with a calcified elongated aorta. 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 A right-sided PICC line terminates in the SVC. Hazy right lung opacities are again seen. A thick-walled cavitary lesion in the right lower lung is more difficult to appreciate. Asmall right pleural effusion blunts the costophrenic angle. The left lung is relatively clear.There is no apparent pneumothorax. The visualized bony structures are unremarkable. IMPRESSIONS: 1. Worsening hazy opacity in the right lung suggests worsening pneumonia. 2. Thick-walled cavitary lesion is, unchanged since earlier in the day. at 1706 Reported and signed by: Dmitriy Reyes M.D. CC: Saurabh Esparza MD; Coleen Ochoa MD PAGE 1 Signed Report Name: ARTHUR NUNEZ [place] : Age/S: 89 / M [id number] Unit #: [id number] Loc: [place] [address] Phys: Saurabh Esparza MD Acct: [id number] Dis Date: Status: ADM IN PHONE #: [phone] Exam Date: 12/21/20191702 FAX #:Reason: sob EXAMS: CPT: [id number] XR CHEST 1 V 64662 Fluoro Time: DAP (Gy m2): Air Kerma (mGy): <Continued> Technologist: Viviane Olivas RT(R) Trnscb Date/Time: 12/21/2019 (1705) [email or web address] Orig Print D/T: S: 12/21/2019 (1086) PAGE 2 Signed ReportBASIC METABOLIC [id number] 13:11:00 Test Item Value Reference Range Interpretation Comments SODIUM (test code = NA) 149 mmol/L 134-147 H POTASSIUM (test code = 3.4 mmol/L 3.4-5.0 N K) CHLORIDE (test code = 122 mmol/L 100-108 H CL) CARBON DIOXIDE (test 22 mmol/L 21-32 N code = CO2) ANION GAP (test code = 5.0 GAP calc 4.0-15.0 N GAP) GLUCOSE (test code = 95 MG/DL 70-110 N GLU) BLOOD UREA NITROGEN 43 MG/DL 7-18 H (test code = BUN) GLOMERULAR FILTRATION >=60 max estimate >60 RATE (test code = GFR) estGFR CREATININE (test code = 1.1 MG/DL 0.8-1.3 N CREAT) CALCIUM (test code = CA) 8.5 MG/DL 8.5-10.1 N LACTIC DEHYDROGENASE(LDH)2019-12-21 13:11:00 Test Item Value Reference Range Interpretation Comments LACTIC DEHYDROGENASE(LDH) (test 229 Unit/L 87-241 N code = LDH) CORTISOL [id number] 13:11:00 Test Item Value Reference Range Interpretation Comments CORTISOL AM (test 17.7 ug/dL 6.2-19.4 Performed At: HD code = CORTAM) [facility] [id number] [place], [place] [id number] rory Ashraf MD Ph:[phone] BASIC METABOLIC [id number] 05:08:00 Test Item Value Reference Range Interpretation Comments SODIUM (test code = NA) 147 mmol/L 134-147 N POTASSIUM (test code = 3.3 mmol/L 3.4-5.0 L K) CHLORIDE (test code = 117 mmol/L 100-108 H CL) CARBON DIOXIDE (test 26 mmol/L 21-32 N code = CO2) ANION GAP (test code = 4.0 GAP calc 4.0-15.0 N GAP) GLUCOSE (test code = 147 MG/DL 70-110 H GLU) BLOOD UREA NITROGEN 31 MG/DL 7-18 H (test code = BUN) GLOMERULAR FILTRATION >=60 max estimate >60 RATE (test code = GFR) estGFR CREATININE (test code = 1.0 MG/DL 0.8-1.3 N CREAT) CALCIUM (test code = CA) 8.6 MG/DL 8.5-10.1 N CBC W/AUTO [id number] 04:52:00 Test Item Value Reference Range Interpretation Comments WHITE BLOOD CELL (test code = 10.1 K/mm3 3.5-11.0 N WBC) RED BLOOD CELL (test code = 3.31 M/mm3 4.70-6.10 L RBC) HEMOGLOBIN (test code = HGB) 8.9 G/DL 12.3-15.9 L HEMATOCRIT (test code = HCT) 29.6 % 35.8-46.7 L MEAN CELL VOLUME (test code = 89.4 Fl 86.3-98.9 N MCV) MEAN CELL HGB (test code = MCH) 26.9 pg 28.9-34.4 L MEAN CELL HGB CONCETRATION 30.1 G/DL 32.1-34.5 L (test code = MCHC) RED CELL DISTRIBUTION WIDTH 14.5 SD 11.5-14.5 N (test code = RDW) PLATELET COUNT (test code = 145 K/mm3 150-450 L PLT) MEAN PLATELET VOLUME (test code 9.90 fL 7.0-9.6 H = MPV) NEUTROPHIL % (test code = NT%) 78.5 % 40-76 H LYMPHOCYTE % (test code = LY%) 7.9 % 20.5-51.1 L MONOCYTE % (test code = MO%) 11.0 % 1.7-9.3 H EOSINOPHIL % (test code = EO%) 1.3 % 0.0-6.0 N BASOPHIL % (test code = BA%) 0.3 % 0.0-2.0 N NUCLEATED RBC % (test code = 0.0 /100WBC% 0.0-1.0 N NRBC%) NEUTROPHIL # (test code = NT#) 7.9 K/mm3 1.8-7.6 H IMMATURE GRANULOCYTE # (test 0.10 x10 3/uL 0.00-0.03 H code = IG#) LYMPHOCYTE # (test code = LY#) 0.8 K/mm3 0.6-3.0 N MONOCYTE # (test code = MO#) 1.1 K/mm3 0.2-1.5 N EOSINOPHIL # (test code = EO#) 0.1 K/mm3 0.0-0.4 N BASOPHIL # (test code = BA#) 0.0 K/mm3 0.0-0.2 N NUCLEATED RBC # (test code = 0.0 K/mm3 0.00-0.01 N NRBC#) MANUAL DIFF REQUIRED (test code NO DIFF/SCN CRITERIA = MDIFF) COMPREHENSIVE METABOLIC [id number] 18:01:00 Test Item Value Reference Range Interpretation Comments SODIUM (test code = NA) 149 mmol/L 134-147 H POTASSIUM (test code = 5.3 mmol/L 3.4-5.0 H K) CHLORIDE (test code = 122 mmol/L 100-108 H CL) CARBON DIOXIDE (test 25 mmol/L 21-32 N code = CO2) ANION GAP (test code = 2.0 GAP calc 4.0-15.0 L GAP) GLUCOSE (test code = 110 MG/DL 70-110 N GLU) BLOOD UREA NITROGEN 41 MG/DL 7-18 H (test code = BUN) GLOMERULAR FILTRATION >=60 max estimate >60 RATE (test code = GFR) estGFR CREATININE (test code = 1.1 MG/DL 0.8-1.3 N CREAT) TOTAL PROTEIN (test code 5.3 G/DL 6.4-8.2 L = PROT) ALBUMIN (test code = 1.6 G/DL 3.4-5.0 L ALB) GLOBULIN (test code = 3.7 GM/dL GLOB) ALBUMIN/GLOBULIN RATIO 0.4 RATIO 1.2-2.2 L (test code = A/G) CALCIUM (test code = CA) 8.6 MG/DL 8.5-10.1 N BILIRUBIN TOTAL (test 0.70 MG/DL 0.2-1.2 N code = BILT) SGOT/AST (test code = 20 Unit/L 15-37 N AST) SGPT/ALT (test code = 19 Unit/L 12-78 N ALT) ALKALINE PHOSPHATASE 65 Unit/L 50-136 N TOTAL (test code = ALKP) - XR CHEST 1 [id number] 13:52:00 Name: ARTHUR NUNEZ [place] : 1930 Age/S: 89 / M [address] Unit #: [id number] Loc: [place] [address] Phys: Coleen Ochoa MD Acct: [id number] Dis Date: Status: ADM IN PHONE #: [phone] Exam Date: 12/20/2019 1318 FAX #: Reason: PICC LINE PLACEMENT EXAMS: CPT: [id number] XR CHEST 1 V 65535 Fluoro Time: DAP (Gy m2): Air Kerma (mGy): EXAMINATION: - XR CHEST 1 V. LOCATION: U19. HISTORY: PICC LINE PLACEMENT. COMPARISON: Chest x-ray 12/18/19. FINDINGS: Examination is limited due to portable technique. Cardiac silhouette/Mediastinal contour: Enlargement of cardiac silhouette. Atherosclerotic calcification of aortic arch. Prosthetic cardiac valve. Lungs: Moderate right pleural effusion. Cavitary structure measuring 5.6 cm, better appreciated on recent CT. Osseous Structures: Degenerative changes of thoracic spine. Additional Findings:Right-sided PICC terminates over cavoatrial junction. IMPRESSION: Right-sided PICC terminates over cavoatrial junction. Cavitary structure measuring 5.6 cm, better appreciated on recent CT. Moderate right pleural effusion. at 1352 Reported and signed by: Kylie Cameron M.D. CC: Coleen Ochoa MD PAGE 1 Signed Report Name: ARTHUR NUNEZ [place] : 1930 Age/S: 89 / M [address] Unit #: [id number] Loc: [place] [address] Phys: Coleen Ochoa MD Acct: [id number] Dis Date: Status: ADM IN PHONE #: [phone] Exam Date: 12/20/2019 5869 FAX #: Reason: PICC LINE PLACEMENT EXAMS: CPT: [id number] XR CHEST 1 V 89484 Fluoro Time: DAP (Gy m2): Air Kerma (mGy): <Continued> Technologist: Viviane Olivas, RT(R) Trnscb Date/Time: 12/20/2019 (1695) [email or web address] Orig Print D/T: S: 12/20/2019 (8866) PAGE 2 Signed ReportBASIC METABOLIC PANEL 2019-12-20 09:58:00 Test Item Value Reference Range Interpretation Comments SODIUM (test code = NA) 149 mmol/L 134-147 H POTASSIUM (test code = 3.4 mmol/L 3.4-5.0 N K) CHLORIDE (test code = 122 mmol/L 100-108 H CL) CARBON DIOXIDE (test 22 mmol/L 21-32 N code = CO2) ANION GAP (test code = 5.0 GAP calc 4.0-15.0 N GAP) GLUCOSE (test code = 95 MG/DL 70-110 N GLU) BLOOD UREA NITROGEN 43 MG/DL 7-18 H (test code = BUN) GLOMERULAR FILTRATION >=60 max estimate >60 RATE (test code = GFR) estGFR CREATININE (test code = 1.1 MG/DL 0.8-1.3 N CREAT) CALCIUM (test code = CA) 8.5 MG/DL 8.5-10.1 N LACTIC DEHYDROGENASE(LDH)2019-12-20 09:58:00 Test Item Value Reference Range Interpretation Comments LACTIC DEHYDROGENASE(LDH) (test 229 Unit/L 87-241 N code = LDH) CORTISOL [id number] 09:58:00 Test Item Value Reference Range Interpretation Comments CORTISOL AM (test code = CORTAM) BASIC METABOLIC [id number] 06:04:00 Test Item Value Reference Range Interpretation Comments SODIUM (test code = NA) 152 mmol/L 134-147 HH POTASSIUM (test code = K) 3.6 mmol/L 3.4-5.0 N CHLORIDE (test code = CL) 123 mmol/L 100-108 H CARBON DIOXIDE (test code = CO2) 23 mmol/L 21-32 N ANION GAP (test code = GAP) 6.0 GAP calc 4.0-15.0 N GLUCOSE (test code = GLU) 195 MG/DL 70-110 H BLOOD UREA NITROGEN (test code = 74 MG/DL 7-18 H BUN) GLOMERULAR FILTRATION RATE (test 30 estGFR >60 L code = GFR) CREATININE (test code = CREAT) 2.2 MG/DL 0.8-1.3 H CALCIUM (test code = CA) 8.4 MG/DL 8.5-10.1 L CBC W/AUTO [id number] 05:46:00 Test Item Value Reference Range Interpretation Comments WHITE BLOOD CELL (test code = 15.5 K/mm3 3.5-11.0 H WBC) RED BLOOD CELL (test code = 2.91 M/mm3 4.70-6.10 L RBC) HEMOGLOBIN (test code = HGB) 7.9 G/DL 12.3-15.9 L HEMATOCRIT (test code = HCT) 26.9 % 35.8-46.7 L MEAN CELL VOLUME (test code = 92.4 Fl 86.3-98.9 N MCV) MEAN CELL HGB (test code = MCH) 27.1 pg 28.9-34.4 L MEAN CELL HGB CONCETRATION 29.4 G/DL 32.1-34.5 L (test code = MCHC) RED CELL DISTRIBUTION WIDTH 15.1 SD 11.5-14.5 H (test code = RDW) PLATELET COUNT (test code = 238 K/mm3 150-450 N PLT) MEAN PLATELET VOLUME (test code 9.70 fL 7.0-9.6 H = MPV) NEUTROPHIL % (test code = NT%) 86.0 % 40-76 H LYMPHOCYTE % (test code = LY%) 4.6 % 20.5-51.1 L MONOCYTE % (test code = MO%) 7.6 % 1.7-9.3 N EOSINOPHIL % (test code = EO%) 0.8 % 0.0-6.0 N BASOPHIL % (test code = BA%) 0.4 % 0.0-2.0 N NUCLEATED RBC % (test code = 0.0 /100WBC% 0.0-1.0 N NRBC%) NEUTROPHIL # (test code = NT#) 13.4 K/mm3 1.8-7.6 H IMMATURE GRANULOCYTE # (test 0.10 x10 3/uL 0.00-0.03 H code = IG#) LYMPHOCYTE # (test code = LY#) 0.7 K/mm3 0.6-3.0 N MONOCYTE # (test code = MO#) 1.2 K/mm3 0.2-1.5 N EOSINOPHIL # (test code = EO#) 0.1 K/mm3 0.0-0.4 N BASOPHIL # (test code = BA#) 0.1 K/mm3 0.0-0.2 N NUCLEATED RBC # (test code = 0.0 K/mm3 0.00-0.01 N NRBC#) MANUAL DIFF REQUIRED (test code NO DIFF/SCN CRITERIA = MDIFF) - CT CHEST W/O [id number] 20:29:00 Name: ARTHUR NUNEZ [facility] : 1930 Age/S: 89 / M [id number] Unit #: [id number] Loc: [place] [address] Phys: Saurabh Esparza MD Acct: [id number] Dis Date: Status: ADM IN PHONE #: [phone] Exam Date: 12/18/20191945 FAX #: Reason: pneumonia EXAMS: CPT: [id number] CT CHEST W/O CONTRAST 58400 EXAM: - CTCHEST W/O CONTRAST HISTORY: pneumonia Location code:C3 TECHNIQUE: Axial tomograms through the chest were obtained without intravenous contrast. Coronal and sagittal reformatted images are provided. Automated exposure reduction (Auto mA/Smart mA) was utilized in compliance with ACR [employer] with DLP of 175 mGy-cm. COMPARISON: 12/18/2019 FINDINGS: LUNGS: There is a cavitary lesion in the right lower lobe measuring 8.3 x 6.8 cm with air-fluid level within the cavitary lesion. There is a surrounding thick wall. Groundglass opacities throughout the lungs are present. Small right pleural effusion is seen. Calcified pulmonary nodules indicative of old granulomatous disease is seen. VASCULATURE: Vascular calcifications involve the aorta and coronary arteries without thoracic aortic aneurysm. 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 Right IJ vascular catheter tip in the upper SVC is seen. TRACHEOBRONCHIAL TREE: The trachea and lobar bronchi are unremarkable. LYMPHATICS: Calcified mediastinal and hilar lymph nodes indicative of old granulomatous disease is seen. VISUALIZED ABDOMEN: Unremarkable. BONES: No acute osseous findings. SOFT TISSUES: Unremarkable. OTHER: No significant additional findings. IMPRESSION: 1. There is an 8.3 cm cavitary lesion with peripheral thick wall in the right lower lobe possibly representing pulmonary abscess, cavitary pneumonia, or necrotic mass. 2. Groundglass opacities throughout the lungs concerning for multilobar pneumonia with small right pleural effusion. PAGE 1 Signed Report (CONTINUED) Name: ARTHUR NUNEZ : 1930 Age/S: 89 / [id number] Unit #: [id number] Loc: [place] [address] Phys: Saurabh Esparza MD Acct: [id number] Date: Status: ADM IN PHONE #: [phone] Exam Date: 12/18/20191945 FAX #: Reason: pneumonia EXAMS: CPT: [id number] CT CHEST W/O CONTRAST 99804 <Continued> 3. Other chronic findings as above. at 2028 Reported andsigned by: Danial Moore MD CC: Saurabh Esparza MD; Coleen Ochoa MD Technologist:Angel Luis Berrios, RT(R)(CT) CTDI: DLP: Trnscb Date/Time: 12/18/2019 (2028) [email or web address] Orig Print D/T: S: 12/18/2019 (2031) PAGE 2 Signed ReportCOVID 19 Asymptomatic IH [id number] 19:25:00 Test Item Value Reference Range Interpretation Comments COVID 19 Asymptomatic NEGATIVE Negative Per andria ahumada IH AG (test code = negative results should COVNONPUIAG) be treated aspresumptive a nd, if inconsistent wi th clinical signs andsymptoms or necessary for p atient management, jayla uld betested with a n alternative mol ecular assay. Negative resultsdo not p reclude SARS-CoV-2 infe ction and should not be usedas the sole basis for patient man agement decisions. Neg ative results should be considered in t he context of apat ient's recent exposure s, history, prese nce of clinicalsigns a nd symptoms consis tent with COVID-19. LACTIC [id number] 16:23:00 Test Item Value Reference Range Interpretation Comments LACTIC ACID (test code = LACT) 1.2 mmol/L 0.4-2.0 N - XR CHEST 1 [id number] 16:14:00 Name: ARTHUR NUNEZ [place] : 1930 Age/S: 89 / M [id number] #: [id number] Loc: [place] [address] Phys: Homar Harris MD Acct: [id number] Dis Date: Status: ADM IN PHONE #: [phone] Exam Date: 12/18/2019 1611 FAX #: Reason: post central line placement EXAMS: CPT: [id number] XR CHEST 1 V 25834 Fluoro Time: DAP (Gy m2): Air Kerma (mGy): EXAM: - XR CHEST 1 V Location code:C3 HISTORY: post central line placement COMPARISON: 12/18/2019 FINDINGS: Single AP view of the chest is provided. Right IJ vascular catheter tip projects about the upper SVC level. No pneumothorax is seen. Right basilar opacity with central cavitation is similar. The left lung is clear. No additional interval change. IMPRESSION: 1. Right IJ CVC has been placed without pneumothorax. 2. Suggestion of cavitary lesion at the right lung base and chest CT is recommended. at 1614 Reported and signed by: Danial Moore MD CC: Coleen Ochoa MD; Nayeli TA; Homar Harris MD PAGE 1 Signed Report Name: ARTHUR NUNEZ [place] : 1930 Age/S: 89 / M [address] [address] Unit #: [id number] Loc: [place] [address] Phys: Homar Harris MD Acct: [id number] Dis Date: Status: ADM IN PHONE #: [phone] Exam Date: 12/18/2019 1611 FAX #: Reason: post central line placement EXAMS: CPT: [id number] XR CHEST 1 V 74565 Fluoro Time: DAP (Gy m2): Air Kerma (mGy): <Continued> Technologist: Eric Mary RT(R)(CT) Trnscb Date/Time: 12/18/2019 (869)KemarCB5 Orig Print D/T: S: 12/18/2019 (3599) PAGE 2 Signed Report- CT HEAD/BRAIN W/O [id number] 14:04:00 Name: ARTHUR NUNEZ [place] : 1930 Age/S: 89 / M [address] Unit #: [id number] Loc: [place] [address] Phys: Homar Harris MD Acct: [id number] Dis Date: Status: REG ER PHONE #: [phone] Exam Date: 12/18/2019 1338 FAX #: Reason: ams EXAMS: CPT: [id number] CT HEAD/BRAIN W/O CONT [address] HEAD WITHOUT CONTRAST HISTORY: ams TECHNIQUE: Axial CT images from the skull base to the vertex without intravenous contrast. Coronal and sagittal reformatted images were created from the data set. One or more of the following dose reduction techniques were used: Automated exposure control, adjustment of the mA and/or kV according to patient size, and/or iterative reconstruction. 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 Multiple white matter hypodensities. No evidence of acute infarction, intracranial hemorrhage, mass or mass effect, or abnormal extra-axial fluid collection. Volume loss results in moderate ex vacuodilatation of the ventricular system. The density in the larger dural sinuses isgrossly normal. The osseous structures and orbits have no significant abnormalities. The visualized paranasal sinuses and mastoid air cells are predominantly clear. 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 No acute intracranial abnormality. at 1404 Reported and signed by: Thomas Strickland M.D. PAGE 1 Signed Report (CONTINUED) Name: ARTHUR NUNEZ [place] : 1930 Age/S: 89 / M [address] [address] Unit #: [id number] Loc: [place] [address] Phys: Homar Harris MD Acct: [id number] Dis Date: Status: REG ER PHONE #: [phone] Exam Date: 12/18/2019 4123 FAX #: Reason: ams EXAMS: CPT: [id number] CT HEAD/BRAIN W/O CONT 62530 <Continued> CC: Homar Harris MD Technologist:[place], RT(R)(CT)(MRI) CTDI: DLP: Trnscb Date/Time: 12/18/2019 (7772) t.DANIELARVelvetVB7 Orig PrintD/T: S: 12/18/2019 (6890) PAGE 2 Signed ReportUA RFLX MICR CULT IF [id number] 13:30:00 Test Item Value Reference Range Interpretation Comments UA COLOR (test code = YELLOW discript YEL/STRAW COLU) UA APPEARANCE (test code SLIGHTLY CLOUDY CLEAR = APPU) discript UA GLUCOSE DIPSTICK (test NEGATIVE mg/dL NEG code = DGLUU) UA BILIRUBIN DIPSTICK 1+ mg/dL NEG A (test code = BILU) UA KETONE DIPSTICK (test NEGATIVE mg/dL NEG code = KETU) UA SPECIFIC GRAVITY (test 1.025 SG 1.005-1.030 code = SGU) UA BLOOD DIPSTICK (test 3+ mg/DL NEG A code = NARCISO) UA PH DIPSTICK (test code <=5.0 pH UNITS 5.0-7.0 = BRENDA) UA PROTEIN DIPSTICK (test TRACE mg/dL NEG A code = PROU) UA UROBILINIOGEN DIPSTICK 0.2 mg/dL <2.0 (test code = URO) UA NITRITE DIPSTICK (test NEGATIVE SCREEN NEG code = SADI) UA LEUKOCYTE ESTERASE NEGATIVE Leuk/mcL NEGATIVE DIPSTICK (test code = LEUU) UA WBC (test code = WBCU) 0-1 #WBC/HPF 0-3 UA RBC (test code = RBCU) 1-3 #RBC/HPF 0-3 UA BACTERIA (test code = 1+ /HPF NONE-TRACE A BACU) UA SQUAMOUS CELLS (test 2+ /HPF NONE code = SQU) UA HYALINE CAST (test 3-5 #/LPF 0-3 code = HYALU) UA MUCUS (test code = 2+ /LPF NONE SEEN A MUCU) UA AMORPHOUS SEDIMENT 1+ NONE SEEN A (test code = AMORU) UA CULTURE NEEDED? (test NO, WBC<10 Criteria Culture CHK code = UACULT) SOURCE OF URINE: STRAIGHT CATHETERIndication for culture: Dysuria/Frequency- XR CHEST 1 [id number] 13:22:00 Name: ARTHUR NUNEZ [place] : 1930 Age/S: 89 / M [address] Unit #: [id number] Loc: [place] [address] Phys: Homar Harris MD Acct: [id number] Dis Date: Status: REG ER PHONE #: [phone] Exam Date: 12/18/2019 1310 FAX #: Reason: Code Sepsis EXAMS: CPT: [id number] XR CHEST 1 V 52941 Fluoro Time: DAP (Gy m2): Air Kerma (mGy): Portable AP chest, 1 view Location Code: D4 CLINICAL HISTORY: Code Sepsis COMPARISON: None COMMENT: The heart size is normal with patchy right lower lobe consolidation consistent with pneumonia. Loculated effusion noted. Left lung is clear and osseous structures are intact. IMPRESSION: Right lower lobe pneumonia with loculated effusion. at 1322 Reported and signed by: Arthur Magallanes M.D. CC: Homar Harris MD PAGE 1 Signed Report Name: ARTHUR NUNEZ [place] : 1930 Age/S: 89 / M [address] [address] Unit #: [id number] Loc: [place] [address] Phys: Homar Harris MD Acct: [id number] Dis Date: Status: REG ER PHONE #: [phone] Exam Date: 12/18/2019 1310 FAX #: Reason: Code Sepsis EXAMS: CPT: [id number] XR CHEST 1 V 15805 Fluoro Time: DAP (Gy m2): Air Kerma (mGy): <Continued> Technologist: Eric Mary RT(R)(CT) Trnscb Date/Time: 12/18/2019 (1322) Jeanette Orig Print D/T: S: 12/18/2019 (1325) PAGE 2 Signed ReportUA RFLX MICR CULT IF [id number] 13:21:00 Test Item Value Reference Range Interpretation Comments UA COLOR (test code = YELLOW discript YEL/STRAW COLU) UA APPEARANCE (test code SLIGHTLY CLOUDY CLEAR = APPU) discript UA GLUCOSE DIPSTICK (test NEGATIVE mg/dL NEG code = DGLUU) UA BILIRUBIN DIPSTICK 1+ mg/dL NEG A (test code = BILU) UA KETONE DIPSTICK (test NEGATIVE mg/dL NEG code = KETU) UA SPECIFIC GRAVITY (test 1.025 SG 1.005-1.030 code = SGU) UA BLOOD DIPSTICK (test 3+ mg/DL NEG A code = NARCISO) UA PH DIPSTICK (test code <=5.0 pH UNITS 5.0-7.0 = BRENDA) UA PROTEIN DIPSTICK (test TRACE mg/dL NEG A code = PROU) UA UROBILINIOGEN DIPSTICK 0.2 mg/dL <2.0 (test code = URO) UA NITRITE DIPSTICK (test NEGATIVE SCREEN NEG code = SADI) UA LEUKOCYTE ESTERASE NEGATIVE Leuk/mcL NEGATIVE DIPSTICK (test code = LEUU) UA CULTURE NEEDED? (test Criteria Culture CHK code = UACULT) SOURCE OF URINE: STRAIGHT CATHETERIndication for culture: Dysuria/Frequency LACTIC [id number] 12:55:00 Test Item Value Reference Range Interpretation Comments LACTIC ACID (test code = LACT) 2.4 mmol/L 0.4-2.0 H BASIC METABOLIC [id number] 12:50:00 Test Item Value Reference Range Interpretation Comments SODIUM (test code = NA) 151 mmol/L 134-147 HH POTASSIUM (test code = K) 4.1 mmol/L 3.4-5.0 N CHLORIDE (test code = CL) 118 mmol/L 100-108 H CARBON DIOXIDE (test code = CO2) 26 mmol/L 21-32 N ANION GAP (test code = GAP) 7.0 GAP calc 4.0-15.0 N GLUCOSE (test code = GLU) 152 MG/DL 70-110 H BLOOD UREA NITROGEN (test code = 86 MG/DL 7-18 H BUN) GLOMERULAR FILTRATION RATE (test 18 estGFR >60 L code = GFR) CREATININE (test code = CREAT) 3.5 MG/DL 0.8-1.3 H CALCIUM (test code = CA) 9.5 MG/DL 8.5-10.1 N Completed by Nursing: NOHEPATIC FUNCTION [id number] 12:50:00 Test Item Value Reference Range Interpretation Comments TOTAL PROTEIN (test code = PROT) 6.9 G/DL 6.4-8.2 N ALBUMIN (test code = ALB) 2.2 G/DL 3.4-5.0 L BILIRUBIN TOTAL (test code = BILT) 0.40 MG/DL 0.2-1.2 N BILIRUBIN DIRECT (test code = 0.20 MG/DL 0.00-0.30 N BILD) BILIRUBIN INDIRECT (test code = 0.20 MG/DL 0.2-1.2 N BILIND) SGOT/AST (test code = AST) 16 Unit/L 15-37 N SGPT/ALT (test code = ALT) 15 Unit/L 12-78 N ALKALINE PHOSPHATASE TOTAL (test 82 Unit/L 50-136 N code = ALKP) Completed by Nursing: [id number] 12:50:00 Test Item Value Reference Range Interpretation Comments TROPONIN-I (test < 0.015 NG/ML 0.000-0.045 N Negative: </= 0.045 code = TROPI) Positive: >/= 0.046 Correlation wit h serial results, other cardiac markers, and cl inical findings is nec essary to determine the c linical significance of this result. Quantit ative results using d ifferent methodologies s hould not be compared to one another as nume rical results may antione yby method. Completed by Nursing: NOCBC W/AUTO [id number] 12:26:00 Test Item Value Reference Range Interpretation Comments WHITE BLOOD CELL (test code = 17.8 K/mm3 3.5-11.0 H WBC) RED BLOOD CELL (test code = 4.32 M/mm3 4.70-6.10 L RBC) HEMOGLOBIN (test code = HGB) 11.9 G/DL 12.3-15.9 L HEMATOCRIT (test code = HCT) 38.6 % 35.8-46.7 N MEAN CELL VOLUME (test code = 89.4 Fl 86.3-98.9 N MCV) MEAN CELL HGB (test code = MCH) 27.5 pg 28.9-34.4 L MEAN CELL HGB CONCETRATION 30.8 G/DL 32.1-34.5 L (test code = MCHC) RED CELL DISTRIBUTION WIDTH 14.6 SD 11.5-14.5 H (test code = RDW) PLATELET COUNT (test code = 315 K/mm3 150-450 N PLT) MEAN PLATELET VOLUME (test code 10.00 fL 7.0-9.6 H = MPV) NEUTROPHIL % (test code = NT%) 87.7 % 40-76 H LYMPHOCYTE % (test code = LY%) 4.6 % 20.5-51.1 L MONOCYTE % (test code = MO%) 6.6 % 1.7-9.3 N EOSINOPHIL % (test code = EO%) 0.1 % 0.0-6.0 N BASOPHIL % (test code = BA%) 0.2 % 0.0-2.0 N NUCLEATED RBC % (test code = 0.0 /100WBC% 0.0-1.0 N NRBC%) NEUTROPHIL # (test code = NT#) 15.6 K/mm3 1.8-7.6 H IMMATURE GRANULOCYTE # (test 0.14 x10 3/uL 0.00-0.03 H code = IG#) LYMPHOCYTE # (test code = LY#) 0.8 K/mm3 0.6-3.0 N MONOCYTE # (test code = MO#) 1.2 K/mm3 0.2-1.5 N EOSINOPHIL # (test code = EO#) 0.0 K/mm3 0.0-0.4 N BASOPHIL # (test code = BA#) 0.0 K/mm3 0.0-0.2 N NUCLEATED RBC # (test code = 0.0 K/mm3 0.00-0.01 N NRBC#) MANUAL DIFF REQUIRED (test code NO DIFF/SCN CRITERIA = MDIFF) Blastomyces [id number] 11:38:00 Test Item Value Reference Range Interpretation Comments Blastomyces Ab,Id Negative Test Not P erformed. (test code = Due to technica l 20190710) issues with thi s assay we are un able toperform the t est ordered at our [place] site. Your sample has been sent to our [place], [place] laboratory for testing. We aimee l communicatewhen the problem has bee n resolved and te sting has been resume d at [facility]. This is a corrected result. Previou s result was TNP on 12/18/2019 at 08 17 CDT FAIZA (test code = SEE ALSO FAIZA) #[id number] Performing Lab *[facility] [address] [place] [address] Nivia Rodriguez MD [facility] HospitalBLASTOMYCES [id number] 11:38:00 Test Item Value Reference Range Interpretation Comments BLASTOMYCES AB,ID Negative Test Not P erformed. Due ,1(QUEST) (test code to tech nical issues with = 20190710) this assay we a re unable toperform the t est ordered at our [place] site . Your sample hasbeen sent to our [place] laboratory for testing. We will crispin stewartewcecilia the problem has been resolved and te sting has been resumed at [facility]. This is a corrected resul t. Previous result was TNP on 12/18/2019 at 0817 CDT SEE ALSO #[id number] Lab *[facility] [address] [place] [address] Nivia Rodriguez MDCoccidioides [id number] 13:17:00 Test Item Value Reference Interpretation Comments Range Coccidioides NEGATIVE REFERENCE RANGE : Ab,Id (test code NEGATIVE IN TERPRETIVE = 0939447) CRITERIA: NEGATIVE: Ant ibody Not Detected POSITIVE: Anti body Detected The immunodiffusion (ID) procedure corre lates bothin sensitiv ity and clinical utilit y with the CFtest. The ID test, which detects I gG directed tothe "F" antigen, become s positive within 4 weeksa fter infection and r emains positive throughoutclini eunice active disease. It is most useful inc onfirming the specificity of low CF titers, whereli ne(s) of identity are fo rmed with referenceantise ra. Positive ID ramu ctions are diagnostic forcoccidioidom ycosis and usually indicat e active orrecent diseas e and remain detectab le for up to 1year therea fter. FAIZA (test code = SEE ALSO FAIZA) #[id number] Performing Lab *[facility] [address] [place] [address] Nivia Rodriguez MD [facility] HospitalHISTOPLASMA AB,[id number] 13:17:00 Test Item Value Reference Interpretation Comments Range Histoplasma NEGATIVE REFERENCE RANGE : NEGATIVE Ab,Id (test INTERPRETIVE CR ITERIA: code = 0299566) N EGATIVE: Antibody Not De tected POSIT SIRENA: Antibody Detect ed Positive immunodiffusion (ID) reactions invol veone or more specific precip itin bands. Of thesebands t he first to appear in activ e histoplasmosisi s the "M" band, which is seen in xxzaopudlsbog35 % of proven cases. This ban d is also seen insome pat ients with past infections and in 20% ofthose with re cent histoplasmin sk in testing. The"H" band is usually seen in active and progressivehist oplasmosis and almost alwa ys in the presenceof the "M" band, although it is found less often(approx. 1 0% of proven cases.) FAIZA (test code SEE ALSO = AFIZA) #05911642 Performing Lab *[facility] [address] [place] [address] Nivia Rodriguez MD [facility] HospitalAspergillus Antibody,[id number] 13:17:00 Test Item Value Reference Range Interpretation Comments Aspergillus flavus Negative Negative Ab (test code = 4495725) Aspergillus niger Negative Negative Ab (test code = 0243414) ASPERGILLUS Negative Negative FUMIGATUS AB (test Interpret sirena code = 8729852) Criteria: Negative: Antib greg not detected Positive: Antib greg detected A posi tive result is represented by 1 or moreprecipitin bands, and may indicate fungus ball,allergic bronchopulmonar y aspergillosis ( MAY) orinvasive aspergillosis. Generally, the appearanceof 3- 4 bands indicates either fungus b all or MAY. FAIZA (test code = SEE ALSO FAIZA) #14452155 Performing Lab [facility], [address] [place] [address] [place] [address] Sridhar Wiseman MD, PhD [facility]ARS[facility] ([facility])2019-12-07 07:43:00 Test Item Value Reference Range Interpretation Comments SARS-COV2/RT-PCR (test Detected Not Detected, AA code = 43200-8) Negative SARS-COV-[address] [facility] (test code = 55698-6) FAIZA (test code = FAIZA) Results are for the detection of SARS-CoV-2 RNA. The SARS-CoV-2 RNA is generally detectable [...] of the Act. Fact Sheet for Healthcare Providers:https://www. [employer]/Documents/ Xpert%20Xpress%20SARS% 20CoV-2/Fact%20Sheets/ 3023802%15SDIT-SJW-2% 20HEALTHCARE%20PROVIDE RS%20FACT%20SHEET.pdf Fact Sheet for Healthcare Patients:https://www.[employer]/Documents/X pert%20Xpress%20SARS%2 0CoV-2/Fact%20Sheets/3 023801%75HVFO-EOC-5%2 0PATIENT%20FACT%20SHEE T.pdf Performing Laboratory:[facility] [place] [address] Lab Interpretation Abnormal (test code = 28774-0) [facility] CampusARS-COV2/[facility]-PCR ([facility])2019-12-07 07:43:00 Test Item Value Reference Range Interpretation Comments SARS-COV2/RT-PCR (test code = Detected Not Detected, Negative A A 8606361) SARS-COV-[address] [facility] (test code = 6808393) Results are for the detection of SARS-CoV-2 RNA. The SARS-CoV-2 RNA is generally detectable [...] copies/mL.This SARS CoV-2 test is a rapid, ojfy-aoskZE-QBN test intended for the qualitative detection of nucleic acid from SARS-CoV-2 in a nasopharyngeal swab specimen collected from individuals suspected of COVID-19 by their healthcare provider.This test has not been Food and Drug Administration (FDA) cleared or approved and has been authorized by FDA under an Emergency Use Authorization (EUA). This EUA will be effective until the declaration that ci rcumstances exist justifying the authorization of the emergency use of in vitro diagnostic tests fordetection and/or diagnosis of COVID-19 is terminated under Section 564(b)(2) of the Act or the EUA is revoked under Section 564(g) of the Act.Fact Sheet for Healthcare Providers:https://www.[employer]/ Documents/Xpert%20Xpress%20SARS%20CoV-2/Fact%20Sheets/382-9402%67VTDM-OYC-7%20HE ALTHCARE%20PROVIDERS%20FACT%20SHEET.pdfFact Sheet for Healthcare Patients:https://www.[employer]/Documents/Xpert%20Xpress %20SARS%20CoV-2/Fact%20Sheets/177-3801%15ZYYV-KHE-3%20PATIENT%20FACT%20SHEET.pdf Performing Laboratory:[facility], [place] [address]Nrfabn culture + [id number] 17:20:00 Test Item Value Reference Range Interpretation Comments Result (test code = No fungus isolated in 6463-4) 28 days Fungus Smear (test No fungi seen code = 1406) [facility]FUN[facility]ULTURE + [id number] 17:20:00 Test Item Value Reference Range Interpretation Comments CULTURE (BEAKER) (test No fungus isolated in code = 1095) 28 days FUNGUS SMEAR (BEAKER) No fungi seen (test code = 1406) U/S, [id number] 17:34:00Laterality?->RightReason for exam:- >Recurrent Plueral effusionShould this be performed at the bedside?- >YesLabs to be Ordered:->CytologyLabs to be Ordered:->Body Fluid Culture (w/Gram Stain, C\\T\\S)FINAL REPORT Exam: Ultrasound guided thoracentesis Clinical History: Right-sided Pleural Effusion Sales Activity Manager: Viviane Hager PA-C Supervising Physician: Maureen Fan [...] MDReport Verified Date/Time: 11/23/2019 17:34:12 Reading Location: [address] Ultrasound Reading Room US [id number] 17:34:00Interface, External Ris In - 11/23/2019 5:36 PM CDTFINAL REPORT Exam: Ultrasound guided thoracentesis Clinical History: Right-sided Pleural Effusion Sales Activity Manager: Viviane Hager PA-C Supervising Physician: Maureen Fan [...] MDReport Verified Date/Time: 11/23/2019 17:34:12 Reading Location: [address] Ultrasound Reading Room [facility] CampusPlatelet Aggregation: Function [id number] 15:57:00 Test Item Value Reference Range Interpretation Comments Pathologist: (test code Abdirashid Montes M.D. = 2622) (electonic signature) Platelets (test code = 198 150- 450 K/CU MM 2656) ADP (test code = 71 % 62-100 17204-4) Platelet Rich Plasma 268 200- 300 k/cu mm (test code = 2134) Plt. Function Screen Normal aggregation Interpretation (test results with ADP. code = 4655) No evidence of platelet dysfunction or P2Y12 inhibitor effect. FAIZA (test code = FAIZA) Platelet Function Screen results may be falsely low with platelet counts<75,000/cu mm.Dopster ID - [id number] [facility] HospitalPLATELET AGGREGATION: FUNCTION [id number] 15:57:00 Test Item Value Reference Range Interpretation Comments [id number] Abdirashid Montes M.D. (BEAKER) (test code = [...] may be falsely low with platelet counts<75,000/cu mm.Dopster ID- [id number] Metabolic [id number] 06:39:00 Test Item Value Reference Range Interpretation [...] (test code = 8.3 mg/dL 8.4-10.2 L 32092-2) EGFR (test code = 78 mL/min/1.[address] [place] [address]-3) NOT ACCURATE CREATININE CLEARANCE IN PREDICTING GLOMERULAR FILTRATION RATE . ESTIMATED GFR I S NOT APPLICABLE FOR DIALYSIS PATIENTS. FAIZA (test code = FAIZA) Dopster ID - RUFUS M Lab Interpretation Abnormal (test code = 39905-0) [facility] HospitalMagnesium2020-06-19 06:39:00 Test Item Value Reference Range Interpretation Comments Magnesium (test code = 2.1 mg/dL 1.6-2.6 51674-2) FAIZA (test code = FAIZA) Dopster ID - RUFUS M Lab Interpretation (test Normal code = 67968-6) [facility] HospitalPhosphorus2020-06-19 06:39:00 Test Item Value Reference Range Interpretation Comments Phosphorus (test code = 3.2 mg/dL 2.3-4.7 2777-1) FAIZA (test code = FAIZA) Dopster ID - RUFUS M Lab Interpretation (test Normal code = 51993-5) [facility] HospitalPHOSPHORUS2020-06-19 06:39:00 Test Item Value Reference Range Interpretation Comments PHOSPHORUS (BEAKER) (test code = 3.2 mg/dL 2.3-4.7 604) Dopster ID - RUFUS [id number] 06:39:00 Test Item Value Reference Range Interpretation Comments MAGNESIUM (BEAKER) (test code = 2.1 mg/dL 1.6-2.6 627) Dopster ID - RUFUS MBASIC METABOLIC [id number] 06:39:00 Test Item Value Reference Range Interpretation [...] S NOT APPLICABLE FOR DIALYSIS PATIEN TS. Dopster ID - RUFUS MLimited 2D Szxvmmpbfqfhud3247-76-72 12:09:11Ejection FractionSLEH ECHO HEARTLAB MKCKESSON CPACSInterface, External Ris In - 11/22/2019 12:09 PM CDTTransthoracic Echocardiography Report (TTE) Demographics Patient Name ARTHUR NUNEZ Date of Study 11/21/2019 Gender Male Visit Number [id number] Race Unknown Room Number 1426 Number Date of 1930 Referring Physician Gabriel Streeter MD Age 89 year(s) Extension Service Specialist In Charge Jose Alfredo Fulfillment Associate Valarie Liz, Interpreting Gabriel Streeter MD [facility] Physician Procedure Type of Study TTE procedure:LIMITED [...] LV segments are mildly hypokinetic. LVEF by Munosn's method of disk assessment is mildly reduced [...] Velocity: 2.23 m/s TR Gradient: 19.88 mmHgCHI Kaiser Foundation HospitalRAD, CHEST, 1 VIEW, NON DEPT 2019-11-22 [...] MDReport Verified Date/Time: 11/22/2019 11:14:15 Reading Location: [facility] Radiology Reading Room XR chest 1 view portable / [id number] 11:14:00 Interface, External Ris In - 11/22/2019 11:16 AM CDTFINAL REPORT CLINICAL HISTORY: RLL Carcinoma, frequent pleural effusion. TECHNIQUE: 1 view of the chest. COMPARISON: 11/21/2019IMPRESSION: The right PICC line is unchanged. Right mid and lower lung pleural parenchymal opacity appears increased in prominence. The left lung remains well-aerated. The cardiomediastinal silhouette is magnified by technique. Signed: Abdullahi ePnn MDReport Verified Date/Time: 11/22/2019 11:14:15 Reading Location: [facility] Radiology Reading [facility] 05:13:00 Test Item Value Reference Range Interpretation Comments PHOSPHORUS (BEAKER) (test code = 3.4 mg/dL 2.3-4.7 604) Dopster ID - PIAYA [id number] 05:13:00 Test Item Value Reference Range Interpretation Comments MAGNESIUM (BEAKER) (test code = 2.2 mg/dL 1.6-2.6 627) Dopster ID - PIAYA LBASIC METABOLIC [id number] 05:13:00 Test Item Value Reference Range Interpretation [...] 8.4-10.2 L (test code = 697) EGFR (DAVIDAKER) (test 66 mL/min/1.73 ESTIMA MANDO GFR IS code = 1092) sq m NOT ACCURATE CREATININE CLEARANCE IN PREDICTING GLOMERULAR FILTRATION RATE . ESTIMATED GFR I S NOT APPLICABLE FOR DIALYSIS PATIEN TS. Dopster ID - PIAYA LCBC with platelet count + automated [id number] 04:45:00 Test Item Value Reference Range Interpretation [...] 450 K/CU MM MPV (test code = 79265-7) 9.7 fL 9.4-12.4 nRBC (test code = [...] 2801) Lab Interpretation (test code = Abnormal 96905-9) [facility] W/PLT COUNT & AUTO [id number] 04:45:00 Test Item Value Reference Range Interpretation [...] PERCENT (BEAKER) (test code = 2801) Tissue [id number] 16:58:00 Test Item Value Reference Range Interpretation Comments Case Report (test code Surgical Pathology = 104) Report Case: [id number] Authorizing Provider: Luis Alberto Santiago MD Collected: 11/07/2019 03:42 PM Ordering Location: [place] [address] CCU Received: 11/07/2019 03:49 PM Pathologist: Lala Jimenez MD Specimens: A) - Lung, Right Lower Lobe, Right lower lobe endobronchial tissue B) - Lung, Right Lower Lobe, TBBX. Process in Cytology for [place] Bag, Reflex Genetic Markers. ADDENDUM 3 (test code = x9pbiPFsBLUenDMnAtCkZP 3383) BsHEOui3osFVGozLFdRsIo MzNcZnRuYmpcdWMxXGRlZm Vbb2czl045lJVce9cgWOGo KdS0jXMmBWUuhDVhH459i3 ldn1aosvAtfUL6GWCyYSW7 KRwgzrHrzaH6GKzqjDAmFm R6IGbokqYeLLjpndMqtpQn Kcw4KECqF952VYK4fQnyw2 pzRWR3LWToKPGdBnGdOk4r jLPwC297RFAdQBFHHDSgmB f0AVTyqeCkhoKppZKCr753 R961b1ikCMQkhqKvcUhMuo izj0acW141FDWxgMBcwtEy BvCoBZPfmAQuxAV4HEXsRO 0fepjoIQnxIAmrTMKvxlZ1 ODWdtGGbI6ZoIWHyHN3kbj yjZMT3QEwmNNBmHEF1TwUs ETOge7Uustk2EiNmfo4fnj 09DHQ3s4YtvXzlWZT2PNH4 FcLeSd6ejYNwQXMoRU1vMh FisDTrUITspj57cWedXIrl ksIdoH8zJuLhFITavJAgCJ UvWX3igZTsVTYypD5pdhas XHBnYnJkcmhlYWRccGdicm KyNx1msIelCTU9STmkH8rf uA9qGkO8QQsdG8slkG3hOW b7HSqytQN8QRVbjZ1tUW2z kvfut7auEFrjOSeqIOQcpa X6evA7RQCfnBVtT7PdcS6g VNSzIH9wsizec6yyOAP7HA isPJWiBWZ6GaEsSEYey9Zl qwr5FrHiy5ZwyFVvPZhmE3 0mq999TTAcsbVyT1dmbJJv nhvazBNnhfmeXBuredL4GR FsXHBsYWluXGYwXGZzMjBc bGFuZzEwMzNcaGljaFxmMF nwXoWyWBTrKYjjP3txNkHq ZnMyMCBUSElTIEFEREVORF NNUErOKLfTK0AXIOCSSzZQ SCPJPxHsYOjAQQAGG3XYYQ HMWzQHL1DFYP8GQQGPNO7S EParI30kRcmBZ0ewEtBjXQ YBYG5IU5gHMa9LDQAMYJxZ Wo1PCRUEQnzWRocysCOzSC CnyhJeRCKGM8GqDNVCEVGP RURccGFyXHBhciBQbGVhc2 UcgxWpAVYrhS8mbUnlQUBs KN7sKYFihcBkn2N1UFAmni HnFBAqaRdykxHxEEneOg3e xPR7mC9xZPHxcv5= ADDENDUM 2 (test code = r1anjNCwHHPohLReEuGgQH 7389) QmBHKlm0xxUPHfzODuBpTb MzNcZnRuYmpcdWMxXGRlZm Ddu7yxv204hTEde8wxKCUo VnO8hBTfQXXevHYoY043OB YuHVkvx6bbe6ScNSPazICs l5S9QJCZnlpfiAe5zFphU0 1go7L7SklfW2ttXOAqXHXx E1EfLB7iRJZaOzf3LLC0PC P5NYKnUGBnW3XnWS7nWQXk kFBhUPn2v4jmyTrnSDZdYB E4y3zyOTzpdvWjYE6uwx1w fAd6j2iebmNqUHIyUEKgtB FGMSRlC7KgbTahTo5rqHi0 eZtiCvgoMZA0Mbu9IL1dvm 18adc1zXezEOAdohafJaE5 NZzeOWIheafsYNg1VRhiQW CznRI5PFGnoGHkL6PsRPPi BF5mrsz6DWW8AGajBXZgSx O8ANFmiHQhMJLyyGiqLDan i634PJW9PxYgAV2eO3Fvg5 E0rM6epMEdDSSmnSJwNwCz UXYhaj0qxKTmSCjrn3OkAG O5vwN9mOBlaPIsRRQxCA99 Yijmc0ScNzhiUNL8VVBaun Rxv8Pet4upYlWbzzLsV9ll Q8IhWMJrSXImGSVzFpYjoo Sql8Tpq4EepPDtuGg8h6eg TBWkOATofHvjq2xnKQH8IC SbK6U8bDQsx8sgUDnfNUBw iFB9fpW1INKhfXTnK7HadI 5dNTFwBG0bpsj7s8imHQJ1 PZceXQZnShR5dgK6FDDzrF ZcVBPbkAlzYTvpt739FGU5 YyGnOMGhm1TtK7NeeTffH1 9epHcwZ94iNYJlnHiggW4v fVwlcP6wJiSlSuYdDGftiP xwbGFpblxmMVxmczIwXGxh hlfhQTKkIJliV2jlVhQsNT OmnCrsMIsdo9VuMXRvMWTb IlUoJFmnayDgPKWnogA0mE IjhvPqw8L6WFYuiK8aslNr s6T6YMMoNLHqGEJ5wZVnd6 YgQlJBRiBtdXRhdGlvbiBv xiMqxF6yjaOQOZ8vKApyRG Hxf6Cxm8UkMOAxsaHcUVKu IqAGU6MAI52CK1JtJFJTA6 SZMT9TMVIDIcpsOXXeWOYn VIBDKWMyYZD5JXSrf057DW 3qfHEzFAThC3QfWUkrCBFr cGFyIFBsZWFzZSByZWZlci E5tuY6qKYah4Nvkt2gOGRr BUFsikUqXz7dPQQ4LIc4PL Eom73ubSIxUWHozx7= ADDENDUM (test code = j8llvHLoSKTgePVlIsFmAD 3381) PlFAHch4kxEMQeeAZlBaYz MzNcZnRuYmpcdWMxXGRlZm Ifm6ujb885lZIgl4vtBUCc FuC1jZViXONgjYSvS837t5 zxm8ozzlZfmVW2FTVdWWO0 THrajgLunvM3RUarmRNhMs V2GKefphKiAPyhpaXzcrMu Ycs4MKRuO242ULJ4xRwzn6 vhHGC0MVEkGANfVbSoQz6h vGBdG658UMGsBUEYGTKdrP e1TJPwgpZgxmXpdLZPk147 X027n4yoXOCgliWkdIhAzz zbs5roJ382RTOyoPIwgjQe ExNzCFUpeDLbpZQ2QQPhCY 5iegfoTFczPFnqZUEdtgV2 JYXcmHNoK8UoNTRkVS2vlh djPLJ4ELgyDTTlGVJ3DcTk JHUkd6Rvvan9TkSzah5jvx 90OCC5y4EyzDlaFDD2SPI6 JeVhHm1diMGkDWIlTI2mUc ZckHWcIBXirp58xFjbQHoh guIjhZ5dVnTiSYPsoGCdFS UlWH2grJPaVZTjnZ1mpxcb XHBnYnJkcmhlYWRccGdicm UnVy9gnXfhOPB6EXqhW1kw tA0bYrV8FAlmO2sfwV0wTA j0GCazvBJ7OUProI8vNV3a semha6kwGOkkYVxwAMMuyr I3utF4UKJjgABiN3BonT7z OCFbXY0izcvcv8edHMW7AO lxFYWrLIM1XxVmCLTkn1Jd zjd6IgLdg5WmcONuIGstN9 1ad533AJJscoPyX3ttdPEf mmjncDTcdolqWMmspvP4WY FsXHBsYWluXGYwXGZzMjBc bGFuZzEwMzNcaGljaFxmMF oeQuOoTQOaJVhrM6lvZbTn ZnMyMCBUSElTIEFEREVORF BCQNiWYTmMN9DEDXHPDcPD HCOZJmMgSVjNTMGHW7FRGJ MwN3YdXfvKGOTGX4XPEWLE IHTTVMYiBM3WPEEHZGAZEX CGGRUdVsgjTHArFM0yIDaM PPZtQDEtGR0bHZ0ubyV8HQ 1vlLQMROUaK6GgKGkaOGAb PW6aXq0BGOulngBxOoAdnx ExlktsaSOhqRpnCn34WODd aGRatZFvNJtOPHocyAi7HU lccGFyICAtIFBELUwxIDIy QzMgRkRBIChLRVlUUlVEQS akIv1lAZ2GZ2nTFXawYWcD ZjLWV0NUQbTWsN9jkjRoju 5gw1Y0fH5kOGDvi7HjDvJn SPQMulFksgHmgVk5GFVqJK BhclxwYXIgUGxlYXNlIHJl PyIhGZJcEIOjOIKeD0Smyy GjVKCgtD0ldWMmp2DsFOTb cYPuo72dnZXcyuJvig9zwP mtpsuxDRZyEYiwJBAhu8Ie p9EbKMKydkFrZJQsWbFIH8 EAA11RX0PmAZFVI3AIHD0V SUVTXHBhcn0= DIAGNOSIS (test code = p1omoNBhFQDae8zhDIDjmO 3220) FuZzEwMzNcZnRuYmpcdWMx EXaxzkDlLFnii2AaR1EgCs AwMFxhbnNpXGRlZmxhbmcx KXYgTRX2jnBuYIKoGJiuFZ ZhMPfpOa4asQEavYieRaIc ILKfa2tjxcURlvztyKt2a1 mtCAAsPcN4bNItMAdpS8jj puVjvAJxZWNyAQn6bY07WF GepW3fnLKqTQdntoKeUsD4 FYoqYAGpYoB4SHKgjKRfVJ TxQ2yrFFKmANciSTKcBXpf wBXzEGN7gJhqv0A7zKOnsC FbvCvbFnEnFjKbJNRYc4Gs NXt7vNirR8MmNIKvGwM1xW QgUGFyYWdyYXBoIEZvbnQ7 hK15ZWsapsT6eNUav3Pvg6 2iw553yP1igKNyLVF6ENGf GFRttAEvAMQsKWN1XJWynR IvX7l2QmZsmQPqF5U6LeUx nGXfQ0G6WuWeuXYjO3Y3Dy VkfESaSZHjjLAaDt7rmJVr wHUjqc0uxu29QAZ2e8EqjF klTPC6OCQ6EbRuZd0hzNIm HJVeZX4nFiGrzWNbEVOrbc 46yNrsYYvztgGejL2tJwWg YWTiuOJbBNMsVP2xkEZbYZ HyqE4pswcvPOCnHkGfgprr ILPglOxoydSgWk5vkOtvUZ A1YOomN3cwjT1zDnA7OLgw I0opwI8hAWi4WKdkgNM3LE MhbC2wWR7oplopi7xoGhGn XF0ffmxjy9hjLuQxDL5qal l7w0yiRkSlGM2opyewz1wx NzIwXGhlYWRlcnkwXGZvb3 DqjprsWWXqz7ZlY4JwmOzv U68vkFnoT49qRXUsjPaadT 9szCjygZ2cGkDuJeFdUAbp bFxwbGFpblxmMVxmczIwXG figlnmJIYbDEloB8oiOcUy LDXpcHtoJCdzu8CuZHRfRP OkZfWbTF8zVGONMokjAqzJ CVSvQN7AJYKdXX7HHJbuEV 7CF1ITR47ECBiWMZMJEM4X L1j7HYAsseMaWDTiJTSMM0 vKNQDHQSEYAjGURWrWD22A GjFXXJeOFRScV04ZITBMUK xwYXJccGFyXHBhciBCLiBM HV3VXQNGSWeBGORDB8eKJp ZTQ8ZBBJTGYlNPL7ENL94W JLpUIJUQNZ3AG7j0QIRujx AgICAtIElORklMVFJBVElO YjJAJPACDP7VUlNZRVoYOO PUGpOTPm4EWAHlQ0HBZEJY DC1OJtDzSJKxoz11KLW6To Zpw9I3LVZ5MNCkTFGko5gf ZGVmbGFuZzEwMzNcZnRuYm rwoBAyUFIdAjZns5onz825 oXPnr8qqJCWoXcS1kNPoVO DteIUhW164LYKfONtqx1qz l4JgBSOvkYLvw9R0YYAByj zdwHu7rNthA83fg7H9Zfxk W2hlFIJqAAHzJ9SpWO5zMZ CcEmq3TDK7QWX5NBIuXKYf I7WiGD1cRWHilHQiVSs1n0 mprSgzMNQgUZP2w1nmMQga voNqJO3ops7bbAk1u3trsb KpHVYlGWWohAOPMYLsX4Nf tKrgJd7gvOv5vMrxDwseQI N8Eca3RB9ebo15gjr6sYwl SWKegbkaXdX1QQzjCRSphz xvEXc1GSckZPXkoDT4UXZg uYTfD2LhNUGoMC8gpwn9FJ E4NVepDXWoUoN0ATKgzILq GFIdgOngJFgyc986BIZ9Fj NeEZ0gN2Ipn5W1fH1cgQPi TDAdwJYaEkHqPIMrke5evE MyDVlji4UxPSO8joY9xBDh bLOoUPVgOhG3DVmxXG8gfa 53KVZoYOA1dt1apFJgqRhc utEbgMYuPQjtY7EeGJWkm5 42QMAuP7AgKNGyu1K5bsOo VtNfBKRcfKY8lhM4KEHcEN 9ohmxcq0qbKIhxWZxgWCEp dwE0rpE7EMHigCKbJ5BqtW 5hURTvGZ8kkutdo2ugFSE3 VKjbIRLyYYL7BsGnDWXmr6 Igebr1XkJxl2HcoKHbSSly Y65fy738PNZwilFoA6oxdT FpblxwbGFpblxmMFxmczI0 XHFsXGxhbmcxMDMzXGhpY2 hxJvNfCYUcbOemYQwio7Nr XGYxXGZzMjJcdGFiXHRhYl w9AHGepMCySXJsAwXwJ7fc rxsdKtNRMNKaq9wzL7rfiI MCfMMyD4YlFXnaijRlLRub JXchIKP6EJK9Hq50OoI8ZW Bhcn19 COMMENT (test code = v1bhzBVsUUSezQMsToHlLA 3359) FfKWWnb3ctUZDxzXXtSpVv MzNcZnRuYmpcdWMxXGRlZm Ejy3zec653xRCtm9swQFVf SnM0tUXoRWXfeGBnN101HT ZkMMgiy1riv4JjJBMwqQZo v5J5CBNTftihrXp7kBcyD9 3bz5Y5UlspL7vgPFEcPAIs X3OoUR1qLPRrZxk5YEM0QA K7QAFjNLZzG7WsYD2pUBEs hJYmSQn0q2dxrEyoWJRiHM V9o5mpPSjeeaIfEB9xfw4x kYi1z6tbgnUvCTRuNNJtcD XUKXJfG6ApqKkyEb1pxLj0 xGdqXzevFSW8Yyv0LV6dbj 47eft4nVvgCWRiisqiYeS2 TVsjHBDyeynyVDp6VZuvFQ JnbDcyMFxtYXJncjcyMFxt YXJndDcyMFxtYXJnYjcyMF uqMRNzIGJ4XZyry544FXH6 DPhxu7fia3bvfZTpZdr2WL LhByOfKzuzWYzdg9Bmb5fp QVBmge3rXKL6wRWesNbiw2 Y7kINcMKKirHBzexUfFJLj UqY7TGakYY3kdy19OQFbJD G3mw2aiAWggUfkmvFnoQCu DSyeR6BpLQPes562CBWjQ1 ZzPNIpy7Q8pmQxVzVxLPHt qHH0dyT9RUDqESa1wSTqff N0vbKpaRBpR6lnwH04XyWi lIAqL0OmeA90XxOsaSDeX8 GquO18YaMkkEIrL9IceB50 FsHnlKZrZMIsxZBlTk2kfM DqxJVtk4LhaWTqEPulF66d w960SRGcjzRwD2gjwSWhhy ajlMVzrhfwZLoyjwC0JKKs XHBsYWluXGYxXGZzMjBcbG FuZzEwMzNcaGljaFxmMVxk WrCsELStPTkuC4qvVwQhOn MyMCBBLiBUaGUgZnJvemVu MLUjZ6Ddq22aw4hjc7Bwsf FyZSBjbHVzdGVycyBvZiBt XMbzB05buwTdQ9OejPLcgA 1gHDWmTUXxR5CalI8oLI1j JA5jT8Ilg5spETPyLUAaqa VnHF7vWUDkt80sMB2tpDhk bmFudCBjZWxscyBhcmUgbm 59OXEsyTWle7IpmEJhLZFh XDI8BOQvnBzkv94soSjzGY Cwgj3axnHfuCLoJSE3gB9x ORImikHmpLV6yVIqUDTuFE CgA6Wbcwj0ACBgp52qREVl citkBPOhGt2mKGftSF4gz5 CyOLL0wUJyO4ZzyFXpPVOk HFNie4a3zIXnYHLusaFRSB BdMV17wTQiQBrtJMAnFJMi STdkbUd8YHSuq8HrBDKYZG UeYQExHLGsg7JzzK8oo8h1 XVBxZUB6iSAszsAjgDa1is NrTmDzSG3jfQ1pxHtncI1m aGVtaWNhbCBzdHVkaWVzIG MtMOEvf59vlAL7WF16XYim xRlimE5thGm9rxS3bZ9aXT GdfORdt7YwYIXvpBfoQ3Sv P3fpk29gYvXKZC8osIqlHR 0eegzuwcUxOXCbDOQmsB4s JSEvfhJzCETvVnEqI5Eza3 5tY9GtdUWmj1JysB9pbVSh NaGMSVJtcmKpd4ehyXHuf4 ihw6ommJRqnQ== CPT Code(s) (test code p8vndHSdJXVkgHGrMiUfLB = 3357) CuQIOzv7xcUEHyiNKiJbEe MzNcZnRuYmpcdWMxXGRlZm Ukh7eue951rKMzo0yqKFXi TpE6rQMpQIMsdSAbL021p4 svh4xfbvQblMP7XWDdDRP6 HLajlcTnhyY5VVaxzKHeTm X1TSocdkJyZIvwnfDvjdPu Dse7VTDiT663YZG1ySzhr8 ruXZS7LCBeDBDeVyNuXx4i oAToX474BUYsTDQNLZThsL p5KFZhwpTxmiAlfWZUm029 Q108e3nwBCCfygNepYiVxx mse4ivZ748HJAhqXWlceNs NqNeICJvbVXtuKE9JKTuPA 8efqqdXeOeVO1iwdpxRyDi FJ9ztvt6EfWuZK7bnqyuIk DdEWrqZDXugiafRMRbg4Fo bpazOJ0vF7Dkz2R9dB1kwY NoJOCsyZXvXhWzLQVsmx4t lCCqJJhri3WwVJC4kfE8nT YeeEEfKIKnSQ76Xqpce1Oo OhjlBCI7EXHjylBdo4Kvd8 ccBtHhfwMyZ8skU4YnJRDq JIHrMLPoXgAsbqMbw6Lxs8 SbgKKrzSo2n9ygJSFkEEQx xHxzg4qaVWD8RLQbK4A7hT Owb4dkZLrkJNJjiLP1tkgc ZXjoPMViabO6ttsmRGmxQP WnxOU9xdgrXJlmGLOsKtZ6 fgtyKFlzTODlMZW5VHzkh4 76NIF4SVzdTplhVNtwKLUv bmNvbnRccGduZGVjXHBsYW luXHBsYWluXGYwXGZzMjRc lKwniBzwaB0iLcKpCuRhWQ dwIY4oKNGzF4shfGIiGUYp UGXcT8ehMvCevW4ebGtiMZ tyegWrYSv4DrMhpGClTQe3 GtB9cOOmQHo1MmFtlMGmDD g3NhPveFKleJKxyY== CLINICAL HISTORY (test p8njmEPcSBHwfVOwPoKwFO code = 3356) GlSJVeq8ssHDLkyWWcRgYx MzNcZnRuYmpcdWMxXGRlZm Mzi3cdh512oHInc2snKFUa RwC8qEHeWOAteTMdM885WN UkWKkdr0mxe5TpGKXfcZLy t0P4INSUbefswYs1fMvoA0 9bj7I8AquyF1vvWLEsMBXo W8UsTB2oDAZgYsi6PTQ7MV M1FKNkYLSeV6BjAN3lRMIc wKQtQPy6s2yxzChrMIAqUN H8i5gkHQdegxShTF4ahz9g dSn7s8gfiaNsXEYhCBNhbM HGIKKkD1KinSuaTn1xsFo7 nMjzCgogTTU5Ifs6BJ0ntg 85qgh1qScaHEJahghkTyI1 OEbbQFWecnlyAOp2FJusGL JnbDcyMFxtYXJncjcyMFxt YXJndDcyMFxtYXJnYjcyMF kiIUIiHFU3GEvgg625YEN8 ALyns1und2dowRXzLmx5KG LdKeCcJunqJMauv5Fhy2ov UPIzfm7wNOM5fOPyzVeiw9 D7pRZtYOXosWYulhTvJDOg UwP5PJluBA9ywr41XEJeJA C7cf3wsRFnaEfutqVxhFKg DMrhL2EaYJNtt819WOPdL5 NpYFOrf8T5kaYvYwKnMKHp uQB1zoZ8SJCxJIg6zPExhp X6hiLoyOBpW0vkxI10HfCs pSHwX9KrbB39CqYpvYNwP3 TytT58IxQfmXLuK6AryI76 BjVceSSlIZLctPIdBa1taO ZljESfn7ZusXFcMDzhA98v m957PMPjknGhU9ornZYmbx lkhGAxrodhFNvjjsO6GSTv XHBsYWluXGYxXGZzMjBcbG FuZzEwMzNcaGljaFxmMVxk LhBlUYElMAijG8rhVeYnWb LaDFPZWUZoz6QjmkmmLbMl hbF2zU4sjAK7NYz6zhzvsV Mow6tyUGA1 SPECIMEN SOURCE (test u8jonTIdSGQqzALcOoXiSS code = 3377) SaXGQfw5akOVZawERzVzGi MzNcZnRuYmpcdWMxXGRlZm Rud2zyk397iOJyb5ovQXOv GhD4rGMqSKCqbRFiI092OL FhIDvar6yus7KjRXXljMRr r9E0AYITfiujiHd8wWooU5 6xm7O5GtpqA6ypZHFnSZYe U2VaMN5lECQzFwf9IQZ0PN B7YDXjKJQjK6ItPI4dJSOp jPBoRUu9m5eidEboHAWkXR I4m0prKYhohcNtMH2sfh8l vEz0b1rpqjVyVAKbPEUcjS MHZIGsJ9WtcLyzNb7usMn0 cVinYamlYBB7Cvu0GA9pry 54yuy8vOajNUFbaxlgRnV3 TSofZYRqqvgbCFx6NQatHE JnbDcyMFxtYXJncjcyMFxt YXJndDcyMFxtYXJnYjcyMF hnTBFkSWC1KExjg001NMH2 WUcvi6kth2mfnCZtIbq8ZG DlGtTcYoahQIspx1Bcf7kr DGUtud8cZLR5lBFcnGfup4 T8vMJwUEDfhPFgcqMxDRHo QfZ1PHctKJ3liy97UNTpRT P2oz6tlYGbuTberlZzmPXk KLtuT2RrGXNko461QPDpJ7 NoZDVga0F7nsCxMqCmZRAt jDW6uqI3YTXxVUn7nFZrta W0quMgdAOtL7cnsJ39ZpOy cDYkA8VhpS45MvRfhPCdD2 BqwL97UgHjfAZtK7NdyT56 ZxKttWNpYHIitZVeOx4ymJ SgeZRug6DloPYnDFesZ01l s902ZQYttpIyL2mmvVIdik hweEOxhecgIFdktgA8JCMz XHBsYWluXGYxXGZzMjBcbG FuZzEwMzNcaGljaFxmMVxk PhExFYEaMJstP0zpKxByBc WsGXRVBvOYnSkpaSZll2ey zrRsj8LiGWBdZZ7zmz8gO1 fdKSwomMqtg9IrEUrwVPFf Zc9eWPIeHcomNrmtbNRgxK 96OUMnyI5hVDQ9rnXqo9Et t12edZfkhCOcmW2ok9nceK FyfQ== GROSS DESCRIPTION (test l0kwmNNbBGEdoCNwOlSlSZ code = 3366) BnLMPkt5xyLJMqiEFuOcRf MzNcZnRuYmpcdWMxXGRlZm Lhe4cxd884yDXkd1ueDUKj AbA9kWBgCFArnPOzA187NO VsPLvdf3dal2AwBBYlrTXt d7H8JJEDzcrnxTh0zWodP6 7hy7G2VlaqG6rbOMEtYJSv C0QyDT6qXKKkIxz1UGU9EY R4ZTHeESPtE0YhFO0tIDLe qLYhRPx0b6yqcUgdNQPhAO Q0f7xgTPfiwbXlYV5rrp5k sBv4b0wbkqUkFKRoWUZzkR BMUBZaA2WapNrcYs6obFq4 mNhcXmcrVLY4Njp5ZB0tnc 08kay0tDtqKGUtnwwfPtH1 ZDwdAVRacqsoLQi2WVkcAK JnbDcyMFxtYXJncjcyMFxt YXJndDcyMFxtYXJnYjcyMF xdTMViQUD6KEkfl367MMZ2 VElwr7lkr4ouvYZyYto2GN OaIcRiYmqkIVeoq9Eum2dc LWMsgp9uHQJ4zTIeoVtgk5 R0mPGyKPQrpWRqvdYsATXg QeR5IIueKA0iiv41DCPrEW G1pb2ypRGzmWgeidSclYXx OJtbP3VsYQDcb607WVYtX8 BwBLLkp3I3xfCfGySyTXRk oYZ0ptY0FYAwHLq5kEGfmm Q8qbKqlQPeN5vrsL97GrBi qVYfJ6OvzS34OfWnkNXgR3 YlxX14WvTrjEMdF1XtoU11 UqBpwXYkKJXynQErBr2kjG YcwSJyb1TrvCFzKFuiP70m n008OLYspuGjA9jhqIGuwm ewnKVufvgmRPfxwgD0ZVOh XHBsYWluXGYxXGZzMjBcbG FuZzEwMzNcaGljaFxmMVxk XmOtPAVkDUjfT7uaQkWbZc AjAMPVaMKkmR1khrXPQVmk FCfoKsOwAJGtJng0jqpwOT XaP0s4AWhkk5PrSNlfVzXc LiBSZWNlaXZlZCBmcmVzaC Gcu9NlmX77ikJkgCSdGUAf ltWcF11uo5EsgJW9yD4eRZ VnWMD0fNZpWIM9gU99GHAd GOdwAM26fgNhUrU9TE0dNz Gcs98xuLsvz3EaEZ9uGDT8 jvmoZtYkUsKmE06mYEKowB 4gVGhlIHNwZWNpbWVuIGlz WVFcmOniXJo0AMK3Kn5awF AuNMCta1PyZsEvjfCjRUwj DDXrt7MikELpPRPiLjJEQd 2ffKdmORAesPMzBGq2skMo clxxbFxwbGFpblxmMFxmcz F9CELeDOxgQGBsCHItHwLe bGFuZzEwMzNcaGljaFxmMV ngPjDeBFYcVZfnX1miMxNo GxGvMGGYtZGacD8fufUWWy VMdQMcr2RyT3rjNV5iuYOw lqAgSLj5VGJkrX9xDMPan0 HvVVgpcz3izZsiFQWeM35q dGFpbmVyIGFuZCBsYWJlbG VkIHdpdGggdGhlIHBhdGll fwLoaeUktvPmfg3uuFtfoo BhbmQgbGFiZWxlZCAiTHVu BrocCdswoBDuiK47YRTwaN 4ySQG4tuYtz5Hmo77ioNwa qVCyqB3nn0ldXDCwNLZcg5 4eoSR4tkXyBgQve4YtuZGv tbH3rXv9NDQeVLaeZHUqIN 1mXGYcMAYaLRusCA96jeno z84mULdwcMZmVHQmD0taLD PrRfFxE31tOnCoW57ftaX4 WCMupPZkJPSptmTvV8SeKV AuMiBjbSBmcmFnbWVudHM7 IROnB6z3IDmncTBiVWJtE0 pcKQFfBxVoB88gOrZfI83i ogXdTUNnbIKioRH4KGScGU 51hUQpbMqlKiOjaC6zGHBk EZTlOBHtKt8dRS3vqFTovS == INTRAOPERATIVE a4eonGMvRGYegARlKmJpMA CONSULTATION (test code NbJPPye7vrTTVkoPKpLcMr = 3369) MzNcZnRuYmpcdWMxXGRlZm Phc5fyz560iVTgt3boUDPj UbE8dZPaQTCouITsM718XI WcPHqwh7gmu2BoNKGhwSKm p4S7FQJSvaymaGt1wJnjF8 0jj1L1NcilU4ypXDFqQEVt L4ClOT5eMWGnZqw1UIJ5LP F3BGMsVWFtA4FjLQ0fEYPp vOEgFRb3n5rosZwmSIZgUV Z1c5zqFXtsydDgEE7yer8w kLp3h1ocewFyLPIbWVXvhQ MWRYWnL7ZhjVtoDt3siDv7 oEvqEkwkAVP6Ifn7TA9nea 80zou4iXmpQWGstlqzAxA7 QTylQXMbkkyvUUx1WGleBS JnbDcyMFxtYXJncjcyMFxt YXJndDcyMFxtYXJnYjcyMF utYHAbDAD4KVobg995CGE2 FZowu9kyt9tgtUIgFls4IG GaPjAwMfosQGscr0Pes2ol VTVjtr0tZYD3hNUabBxff1 J9jDJvRQOhyNSlhvReTUGn YaN5GMtuTA5ale07ZRUwAW Y4gz6wgHPmrEqeycXsvVTx EOimV0CeGXYma660RBBsX1 QeYYKpi2C0qbQaZxIsPISx xAT3avY2KBAdZQq8tBSuav D0bqKdtPEnV4ftaL34MmPo uNRiR2YdoT36UsTbqZUwJ2 PubI39MxXbpYXnF5HigD14 QxUrtXEkENJubGFzVm1bxZ BblRRdk3KbiLDcPSdgV31x y754CCRtybFwX6famIWvqj noeUAlhsbrBWdgdgA3WOIo XHBsYWluXGYxXGZzMjBcbG FuZzEwMzNcaGljaFxmMVxk VhFxLCOaHRbnU0pzWkOuDa MyMCBBMUZTIDogUklHSFQg UF2RNBQfZZ8AKDgsCT8TP2 NQA80RNNnZPVYSIOYDBNJn KHZGI8EYZHppiYHrMALcGZ GGW7ASZXiHDUHCH9UcPZDD KRuESK9CBHXGZcXPTGJGX5 tMDy1THaOhG9BtDQ9EARYT CVVSTD5MHLVGWUFYZMCDR5 NJUyBccGFyXHBhclxsdHJw WNTefLsmkDpatE3wRrTcAa MyNFxwbGFpblxmMVxmczIw STfwkgetLGUaDEtxE2nrCp VtEOHyeWxlNChqd9PjPDAt LEThHxKmXgNqc2Q1BBDrPa kgRHIuIEhlbGVrYXIsIHBh nQgxlX1byVS5VV2tQVp7JU KcrZF7NhKgINWonI5ppCEg fQ== MICROSCOPIC DESCRIPTION q5beeTZoDWTshIElUyEzLN (test code = 3371) EnJWGvs5ywXEUkdVPzTzJh MzNcZnRuYmpcdWMxXGRlZm Dbh8uxl314uQIlo4dpDEGb NeH9iDPrKWQmpHQnJ600ZW AmVHrkv9vzy8JqTXHisNEw z9K1XFBTjgkbfHk8rBnxD5 7dk1D1BtspS4qcQSGeGBKv P3HbYE2wDTDaPmr0WWS4LJ A6GSHoENZnW9NpMU4bKLHz vXSnFBy8i6ndjTyhIOGfQR W4r1swYLoduxNaIJ5eaz1o mZp2d8tjxnRbHNDwQTJwcN PNYZMzZ5LjyMotKe4rwYl2 pEidBdavVII8Xls1FG1esl 88kua0tWtsXWLotbexZsN8 SFjqYRYozqvaLXj4ZJnhWR JnbDcyMFxtYXJncjcyMFxt YXJndDcyMFxtYXJnYjcyMF zjRMHfJLK7EZgdj241EKN7 YIclc5rnt6qugIJdYzi5FB QsAoDnYrnuMGfmi1Qyr7jw LYVnkg0wWVL0jJTavLzeu3 F5xNFcKGYiuNSosfJqTAWy KmN6FTthGF5cuk20WMYsLQ K9yy4fsLEqlKrbgxXjmALr BYyzY8HwWRVtd469EOEoL6 QeJGJad1L6yfQqDbHkRWOg dPB3dmI3GYQeYTu5eIIvbe Z5mpBgjPAwC6sfxF15LpNh gNLoE7PedA02UjHwjZHgJ0 YrcN70BnZypTGnX0VobM22 MgKnkWMdCTRxyBGsDu7psT FzvJKcy7GzrDRxAWjqK35z u767UOJwplCwW9pokIKjos zvoQZilfjiALmfcgM9XBGe XHBsYWluXGYxXGZzMjBcbG FuZzEwMzNcaGljaFxmMVxk XiIoCPVuUIggQ0wxBlLnGj WoZRNKFCL8ZLImfhXxjx5o ZFxwYXJ9 SPECIAL STUDIES (test u4zurERmDUHjtLSzIeScFC code = 3376) KsBSFsl0mqXVPlySJxDfBv MzNcZnRuYmpcdWMxXGRlZm Qnx7uul272zBVfi6dpSTAu NvV6cZHyGJRrlCReQ123GZ UlTHqay7reb5ZySRAyiSKf b0V2EFKEADiwDxOmV766QR HgVHwhb5etf3IfYLZtzRTj z8E7GXDHhapvfDg8hXvnA0 6io0Y4YxboU1ujFKZpGDFv X7DmSH2jAJUxDnb3FNJ6YE V1JYGxNNPvV3WnIV1xOWGe jQHuPMu1x7ymwXwdVRDrNL F2f6faEMbcxdG2MC9uyx0o aSi2u1vcixIjYEOvBRGqeW MJJXQwM4DxwLntJu9cfXi0 k9ouVnvgvdW4bHIvLhOqDx MyMFxsaTBccmkwIENvUGF0 bSDCXPy3V207t6lvHIMkvc XrxWmQknuzp2jqQ930HYLl cGVydzEyMjQwXHBhcGVyaD G3SYTwYW3hmvzjKjAdDF6v ytbrOgKtWZ1snzk6XeUfQK 1hcmdiNzIwXGhlYWRlcnkw APBai0SrqmvsHU8mM5Icx2 F5zS2slKCgFONnpNCqEqDs REIecr8zfXGmMIptWDZ0TL LoszCmy8Yfo9obGaQigqDb O0tiV6NkNSTtIXNsZIZdMe ZyjrCeu9Hen9MhzKKsyZx4 x3khUNInLXYdbBubb4tuOO V0LEJxB5M6vZHto9pzUSmf AABdyUW3ogywSVpeKVAslf G0yoyeMSdoASFqbKJ8mftl TCddZPBwQxQ4ridxWEttEL IlKBW1OJlrn135GSB9OWqs YmtwYWdlXHBnbmNvbnRccG duZGVjXHBsYWluXHBsYWlu XGYwXGZzMjRccWxccGxhaW 9zKzTaBxZqBqyoVE8xEDQc R7gdtBAqQGSmXLUnY6ntKf IvvW2loWydEWnwPrGbNoBf TaMTuTBwsX39AILwmqI9LT Rbt75pb9LjnYfdjnCgBVFd KSaiO6z3ZMTjMHDqWUQ3z9 Tjm1NoqC9uzX7rfRuefR6v gMGqcWQ4ptokn9Ggw0YwG6 lhbCBzdGFpbnMuXHBsYWlu XGYxXGZzMjJcbGFuZzEwMz NcaGljaFxmMVxkYmNoXGYx FMzzS8pbXqXdZ5CtLDLsUd AohAYvK3sqnFMfCAVlRSql XGYxXGZzMjJcbGFuZzEwMz NcaGljaFxmMVxkYmNoXGYx ULfeK5piKfCqP5XnCZEySa QeJDYYFUE5UTD2KA1auhMt Bq8jtBqoPDZjN43isQJbwZ BTbGlkZXMgRXhhbWluZWQ6 GBULhx5sl6TkTJKjat21dy Xcp3LydIr8FOXre551ta8a guX8VFZjQVQ9JZg7BOTiXS MelP5tYbS9rPWuOTEwXGW5 LIM1CMUrg7A8MJ4xAJAaFJ JfMMXauiNix0gem0koTQMf NNG0dqSwtG0eZ7NwRKDhb6 YgdGhlIHBhdGllbnRzIHNh oZSlFPRluO54IQQqiTVtdZ QxYBVgHDL2FUdpkM6hLvYC ofTads9ydSMhm8MamIn8MZ PjeuIaedBaLUWpqmZqO19l iCZjcRRkb0alqaRgtlBraI QomYVvGSLfBYO6STw5JIEk ZFxwbGFpblxmMVxmczIyXG gjytnnVMQiNYfxA4kuWzNo AMAiuNgpCSnop4DyDDQvPD BiKaptvxZtEYz0jzUqUQTv clxwbGFpblxmMVxmczIyXG dnhlkrVBLeONbiZ3eeYxCm AHMxzFfqMJlmt0XrQKPqVA BaFaryjxOcRMOgxVxeuI0d McPhZuHtWjngON0xPLKlL0 rrgKSkKDWuONKmZ3fpUeLl qZ8qxIucNLfdIeWoViUvRj hzoEVykRjvJVFmvNmhaN5h QiChFvSpZqyyHX5uGMHmH9 lbaCClFKFuWHIcS1rfLpPf yS7vdLhuUYdcVmWcKoQsBn XLaQ10pu6xgCI2z9UfWK9r y6TgvFU4UHEpihjfPGhmsN ZudDlbVyN4VEGfxBRgQy6u tMSuHLI2EPQdqTazxhGGqV 4gTHVrZVxwbGFpblxmMVxm czIyXGxhbmcxMDMzXGhpY2 vgFfYwXHAdtCnaFLukq5Yd TBZdYENtGqgdeeXtUYN6No N6SJwvJDAhhGaajO7kAwXh WbZxYyizRR6wGHJqC3wcbV SpSLQwZVSuO8qlRuTouI2q aFxmMVxjZjJcZnMyMiBzIE 9vUJdoKFdhB1GvgFRaDHXJ MGYsv2pvW7nrFSXub0TfrC 2uoQZ4mRVfUJTojXL3QJMf EUO5WAfnxOIyCGZkFQDmxA OznSHyOe7msGKuD8HkH7mt vdSjiFHopEN9kHGzCAouse PxYOX9XFMfyS8dXH9zPRFh iJFcNU7mwLGzUASvQHDwME CrKERou8BmDXLvmq33OJFn CzjrlXudSLVdNp4oGq0dRR RrbyEySCG4EoQRBU5seyla zTXjzZtujg6tCKriRMSJYV WgWYMwXHC1IDIpeX8nMZG1 rZU9ECL5O4nkZ5ilIDVgyi BrST0fHSXhiLKrhhZaEByt NP3sdRLmNJWnj4FgxlhxBZ OeINL9QKA9JTyzIVAuFIDx Oj2vPWIhjH1sR2OsZUZ3wr Nma0VmDsYMwTEzxZ29wJSf cn11DYFpZHInF2ZnJAFuGV ViHQjcbmFqxDqxYOXga02t wBMuyjXht3LzreRiKTEbX7 thSUZswJQizXMty7KkeK8h oYVpwbFrQZN2dLCtKUIzzK 3bVDDseEufABWgmA4eY5Vi ZGruPa1jIFHwwsucVJ4srp 40AJ1wawXbOV8brfSqWG45 rrNaZrEqRBh6VBsFDLtDOZ l7YIIpauBvcKKakVUcAKTz bO2nfMJyZm9suBKccEjiEO ZdnTHxRMlemOavO9usdcln PTdbwKIys3EonA0tyGF2QL I2iZ8aIttglOJwfuhdJtmw czIyXGxhbmcxMDMzXGhpY2 sjSgSmIXHfjWfgRmawm2Jp XGYyXGZzMjJccGFyXHBhcm PxuFnrsQ0hEcVrZyXdNVcy eIGafibrWoywmdF8IEEqxo 0= Gross assessment was [facility] performed at ([facility], = 8895) Department of Pathology, [address] [place] [address], Technical component was [facility] performed at ([facility], = 3308) Department of Pathology, [address] [place] [address], Professional component [facility]'s was performed at ([facility], code = 2779) Department of Pathology, [address] [facility], [place] [address], [facility] [id number] 16:58:00Surgical Pathology Report Case: [id number] Authorizing Provider: Luis Alberto Santiago MD Collected: 11/07/2019 03:42 PM Ordering Location: [place] [address] CCU Received: 11/07/2019 03:49 PM Pathologist: Lala Jimenez MD Specimens: A) - Lung, Right Lower Lobe, Right lower lobe endobronchial tissue B) -Lung, Right Lower Lobe, TBBX. Process in Cytology for Collodion Bag, Reflex Genetic Markers. THIS ADDENDUM IS ISSUEDTO REPORT THE RESULT OF EGFR MUTATION , ON BLOCK B1, AT [facility]: - NOT DETECTEDPlease refer to the scanned report for additional informationAddendum electronically signed by Lala Jimenez MD on 11/21/2019 at 4:58 PMThis addendum is issued to report the result of BRAF mutation on block B1. The test was done at [facility]: - BRAF Mutation: Not detectedPlease refer to [...] for additional informationThe test was done at [facility]Addendum electronically signed by Lala Jimenez MD on 11/19/2019 at 2:18 PMA. LUNG, RIGHT LOWER LOBE, ENDOBRONCHIAL BIOPSY: - POSITIVE FOR MALIGNANCY (SEE COMMENTB. LUNG, RIGHT LOWER LOBE, TRANSBRONCHIAL BIOPSY: - INFILTRATING SQUAMOUS CELL CARCINOMA (SEE COMMENT) Signing Pathologist Direct Phone Line: [phone] signed by aLla Jimenez MD on 11/09/2019 at 3:09 PMA. The frozen section shows rare clusters of malignant cells in a background of necrosis and inflammation. Malignant cells are not represented adequately on the permanent section for further characterization.B. The neoplastic cells are positive for F54-ruqsxubr and negative for TTF-1. 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 Genetic markers are being done at [facility]. Report will [id number], [id number], 58976x4, [id number] pneumonia; lung massA. Right lower lobe endobronchial [...] AND NECROSIS Reported by Dr. Jimenez, pathologist [id number] at 4:02 p.m.A-B: PerformedThe interpretation of this case included the use of immunohistochemistry or special stains.TTF-1; u79-mfaiplggDlhevfy Slides Examined: In-house known positive controls were evaluated along with the test tissue. These control slides run alongside of the patients sample show appropri ate staining. Internal positive and negative controls when available are evaluated Immunohistochemistry technical testing was performed at [facility], Pathology Laboratory where it was developed and [...] qualified to perform high complexity clinical laboratory testing.[facility], Department of Pathology, [address] [place] [address], [facility], [facility] of [facility]ology, [address] [place] [address], [phone] Francisco Marine Hospital, Department of Pathology, [address] [place] [address], UAR, CHEST, 1 VIEW, NON [id number] 09:02:00Reason for exam:->RLL Carcinoma, frequent pleural effusion.Should [...] MDReport Verified Date/Time: 11/21/2019 09:02:25 Reading Location: [facility] Radiology Reading Room CBC W/PLT COUNT & AUTO [id number] 05:58:00 Test Item Value Reference Range Interpretation [...] 0-1 PERCENT (BEAKER) (test code = 2801) [id number] 05:45:00 Test Item Value Reference Range Interpretation Comments PHOSPHORUS (BEAKER) (test code = 3.6 mg/dL 2.3-4.7 604) [employer] - PIAYA [id number] 05:45:00 Test Item Value Reference Range Interpretation Comments MAGNESIUM (BEAKER) (test code = 2.1 mg/dL 1.6-2.6 627) [employer] ID - TANNERAYA LBASIC METABOLIC [id number] 05:45:00 Test Item Value Reference Range Interpretation [...] S NOT APPLICABLE FOR DIALYSIS PATIEN TS. [employer] ID - PIAYA [id number] 13:38:00 Test Item Value Reference Range Interpretation Comments Case Report (test code Medical Cytology = 104) Report Case: [id number] Authorizing Provider: Yoly Qiu NP Collected: 11/16/2019 05:02 PM Ordering Location: [place] [address] ccu Received: 11/19/2019 11:07 AM Pathologist: Tate Barksdale MD Specimen: Pleural, Right DIAGNOSIS (test code = [id number] 3220) FuZzEwMzNcZnRuYmpcdWMx LWsfqyAkWLvai9DnQ3OpVu AwMFxhbnNpXGRlZmxhbmcx VJNwYSF4quRoMTJoXUtkXH CyXUmnXs3gqEBksSjkOwLh AOTmh8ntpdPQudygzSv3q7 taVOOgKyX3sGMeCWppQ8fz stLjwRJxNYDvNGh4zK33MO VhfS0teDTaNFhbfwKkApV0 LNhhJJEaWzP9PPIckARoRW IqE5ocLOLsISciXXPuIHih qFLfICD9eReka7P0jMQkqX KegPsnSiVxTzZxPVYLb0Pv QGq1jJaiM8FgXEOyXfI0sQ QgUGFyYWdyYXBoIEZvbnQ7 cO22SVdsccU9kIQlu3Qjf6 1bw956rO8zjRJyVUU7DAMk HWVssDGtBDIiLPA3XQNonC ZxQ9z1OpRahIZcF6Y8MaOu sVVzS5Z3HlChpPJtZ7U8Xg KozVNoPVXmqBWvBm1xcHCr tDQhzs7kfz52OOT6m0NcxD zvHZA4LPE7CzScIy3wqWFz HOEvIO5xTkKziMUbQYNwhr 27eKgcLJyicvJmmN4vRoSs MHWhyAXfZGBoXZ5owFBxQY CvjM6ptvhdCZHmDbRwpqok JYTkgVdrtiYfDu9giGcqCR R7WIwpE6jebO4cPcZ4AKxj R3qfnK5tLRu9NLnhoZR7UW XiiD0pMB8yurwft6qaSeJj FR9rapagt3cqKzWbNT4okw v0k7slXjDvCH4sjzcxq7vi NzIwXGhlYWRlcnkwXGZvb3 KuqqwyKVUtw3AsI3CqlPyj A05pnPzzU31aUQPmkRfjrP 3hgMocfZ7mErYnRaCpPReb bFxwbGFpblxmMVxmczIwXG keoeyvYYInBKfeM2qfAvXx CYRtuHzkIXhhl1ZgVRYbCQ ZzMjAgUExFVVJBTCwgUklH SFQsIEZMVUlEIChDWVRPU1 QVViVuEY3JKFSDOIpsWmrJ B1okQuislJ1rJHDrYN4pBg DLRMHKAdNdPh7OEQ3QVScP TdNOT4oztNXqTBFsOP7yPg TwZ8JdroWacYImv4HmFPxr BUcaW3GamRSnqXHiy3GkuI pmUJB9u5fcnQSaWKCmwFKi ODAwMFxhbnNpXGRlZmxhbm buIAWmIMY9boOeEPSvQKkv GQYbCZzuMp4upCKzvVfvSj XqVCQub6blpaKLbmocfNr7 t5hcTMTxTqK6gFWmULjtE2 xlmoGinHIhXAZbJFs1bC27 KCUleR3ceUKjWCkpyqWeJp W5PAzqYERbUqA1QAVbjFPx EAQmE1jiEIKuYOcoIQUwCZ vapWKiFHF3uVore0P8sTWl aGVldHtcZjBcZnMyMiBOb3 FdGFx5dDefE6DqPTQsMpH7 bHQgUGFyYWdyYXBoIEZvbn A2yS40DPwidrN3bEXvf5Xo f15hs732qQ6mvCMxZTQ5ZV PbORMcwGVxBXWwZSC6OHGw yNOzG4fxWKPtEQ5qyhhdMO ylLDreYVQkqAG9TCQyoNLw M0NcKQFwQHcxDFMswrh2En VnIr3wmTGvcWabZWshy4oh s3rxcIFsVsw1NARvHfVqWk jlPGfbx9Gqg5okSNHmeo3o KYJ3fNRniEkil1L5qCMrHF QytMMnKQWiDX2hjTCiICMb tU3qgzfiUWThZfZnqxdrWM SlqKycpbAbPd4gxJlkZUM2 HQqcQ2cjyY9nHjW5UEyyQ4 fwcI1bDIh6FOioHKZqrTN1 laU9ECWesCVeQ7BbpH4qRS ZoWE5kevm7e3csFZH6GGww OFYmKvW7vdT6TWYubWZkUG UzpVmzVSlts866JJY7BeMa JMAwd7KcB8QefDdxI18kjY cjE01yJVXrlCmerE3gqGxz nQ1wTsFeCjOgSDqxmTbuDQ 2cGVFuI4fvsFQqAXIiIAIf W9fqXkTtaQ9oaBrrVZaing UuRXHrJzy3ISSbbULsOOHa Bvm2JXIiHUNwQ73iwnsdXS R9dJ8vy5xiv0QlNCsuXSP2 FFFkm08oPOmziuS2TQorHm 8kMTVmPek4PqblVXI0uW== CPT Code(s) (test code q8cbhMAaBWMdzUZqEqTxIJ = 3357) JvRLTip7ciPACdsABaGgHy MzNcZnRuYmpcdWMxXGRlZm Vxy0ssv069kCRel9vtREQp GeT5zNUkENNfrQQtL384t0 xie1kwhcQijDC4TENjHHV2 VFzyivNbqwX9NNpysNJuAq L1PQurhmYbMKmxazEjwmZp Bkg8JMMwR508JCT3dQeaf6 yhXUU1DXEcEUQvBiXgKq1y dZBoG368XDAxCMBZBQDawP k5GCFateYqgmNmwAGMe746 F829i0rrKBYkgxVieRmJil ohk4kwM643JGLliGTpumFx NmZeTNKojMAimHU9HBBtJS 3lzqmuGyPsNB2ycwfyLkCs RY6nkgr0IySeAI0bcxrwGx MnXRpyFRPjmxlyYPTie9Dw qomaMZ3wE5Pyw4H8iM5zsT KvQCIcaGEcSmVsGUXleb2o iLAgYLnsl2NdQRC4kqS9fW AuzNVlWSUkBS04Okoxg8Xx IuxzGJJ6FYJswcWsk1Ufa8 hjUyTadiQnR8mmN7ZyLTGy ZRFbRYUaYtUymaFjx4Icm4 VrsNBwuYl7t3woCDTrPQVf pHfnl5kzHPB4ZMXsE0N5rY Nkv5udEOdmSSUmxCM7jtle XEgqWTFvkqO9caysMVvvNB CmcCV9cspcKBjnODReWvU7 crvaMOaoNFOsIHP7SVnet9 09JEJ9HWazXklyLXapMIPx bmNvbnRccGduZGVjXHBsYW luXHBsYWluXGYwXGZzMjRc tIbgkJqngX5dBnImFhVdJP ssTL6oGKJxT3oskUDzHIYf BTIzR2udZeQiiF0uoDmhMP yvzuGxNJh3LPJ9UJD8AIOm NVxwYXJ9 CLINICAL DATA (test s1vwnFMiKZSpzXYaIsSgMY code = 3355) DgIBHvz7mdXUJjdNTcFzUl MzNcZnRuYmpcdWMxXGRlZm Bfj4gvr858gONyx3vdUHDw BvU3cTWtESFhwIZwQ966BU LgMZfqz2cab5UjBYPpcWFk y6O5ZOBCggxghNr1iSnxW3 0yv7Y8VsxzK5hfCATgYPSl T7GtUU0gSLJvDsd6XCZ5XY S8XZOzVPYzP4AmBK9nVCRg sTOqRMi6u8zaiTieRFGuKI A7e7ubIXqaujPvPO4djh9k dRr6g5qbheQxPXGkZIAjpM TYMBXzO3LnqPlsSe3ycQn4 cLejUasgZCS7Fwf5KW9nho 46zsr5pGlcAPEmhuzcBeG0 SNvkUEHshqdfCVe1SAjfOS JnbDcyMFxtYXJncjcyMFxt YXJndDcyMFxtYXJnYjcyMF rpDGLxREE3IRscz775HFG0 AVyny3uea6uqsGIiShp0FX XpChMaRurbCTsfd7Qdn3iv JWMcvk5gFPE3wGJqbZjei9 D1kACdBPVpeALugvLaERBm OjJ2ACeoBE6jzq85YFDiHH Q1wj1pnKKufLeivbSmcKVs EQpbU1FvCBAwl118PTFhV5 JjIUNoz4E9waGzLtRhEKAq ePR5siX1QQQePEh0hBGpjq M5oqYymYGfJ8usnO31HrUy zDYaW8MhkV49FkFtbHJvI1 WkjV74LsApyPNbX1JtaJ65 CmMcdOUhRJPqxXQbGq9wiO GwzTKfs1KaiSHeMOlzP49a t358RFOerkVuB1pcxTWiwu gfbRYaikjrVWrwscG9JZEi XHBsYWluXGYxXGZzMjBcbG FuZzEwMzNcaGljaFxmMVxk PwNwTPBtDJmbR3zoCfKnCv YcXOJTtAxxkERebBK9bnQp QDHgDuFdqN8fWGZhoTZ5r8 P5CC2qEPzzGtsgqXLkwXtm MiZchQMgnA67ddOoPVtrMN HhxnDhxl7aJMDhHbE3eCLx plistXTxvS17NBFmgY6dXU HqdA4lJITjqs7= SPECIMEN SOURCE (test w8fwgOErETHyoYZbAfXhGQ code = 3377) TiYBCyb6ncOHSloFMwMsCh MzNcZnRuYmpcdWMxXGRlZm Jde3zjf258tQMgv3gmPQRa NjO7eZXnTCYbeWOtA327EX AaBRdvw0obc6KaPWOqnBPg k2S2ZDNSxjrncUk6xZfuW9 9wr2R9CivpB6lvWRKtLLOe G8HnUG2oEPGjGgg7AMF3UK N6AHTeXNAaB5TdQJ9rNNHg sMWqQXo7f4vlpMrdRVQsSC K3p5dtVJldtdBtTB8umh6w jXo9h4xjzuLkLAJzYXGkhM GSJADgZ1DlaLxlSu8bsUx1 oOsfHaefCDF2Nin8AE7spb 24hfk5mXnaGQQvcifrVuM1 YAdiQOTdgeweBCq5MSrnIZ JnbDcyMFxtYXJncjcyMFxt YXJndDcyMFxtYXJnYjcyMF trWQDyTZU3HWqlj010NSR6 VIflc7yhi0nkhRDcJva4LS KkHnQiZfutVJkwc3Umy7yl KRUeme5rYVV7pTRtkEsai7 G3lSHjWLAvhQEtfrDyFACg IsI2UUvrTF9xsq61JNKjCX F3dy6psBHojRgzbxLhcIWc VVtgI6SiEKHzy836CCQsY1 VcXPLhn7F5jpDjSmElMAHv iES3ldZ1NVPkLPp4lNLvge W7lsIimKXuS0dghL67JkCs uGQqX1NgnN20GfIotZHtP5 NasM27NcOnrOCgN9TvwK45 BgQojLXgQKAusIBgVl1evQ KszSUsy0QuzNFeLJctA33o e751VPMbmjGrW3zzbODxef qmdHErxmsdSBrgwwF8RXUz XHBsYWluXGYxXGZzMjBcbG FuZzEwMzNcaGljaFxmMVxk BsTaMICdPNzpS5fjPaGnYe MyMCBQTEVVUkFMLCBSSUdI VCBGTFVJRFxwYXJ9 GROSS DESCRIPTION (test m9ckfUKmWLOwcSSzBwUsVV code = 3366) MrGAPmz2kiACJyaECnHwDj MzNcZnRuYmpcdWMxXGRlZm Ina2yyp532lSGrf1viLACt QuA8eVNzBEPkuGKsC887KZ HfQEilk7jqq1KtQWVymMIu c2Y8MXEZmsiitRj8dHhmF7 3fq5W6SbgkS7pkDPIaWXZx P5OiZR1mUSSoMxc1UZI1NZ K9OHIhAOMeE4BrLP5zRRIr nRAyYVh6z0nyjGztMMAmFZ K4i2joCLshumWoOB5dpj6h lFq8h6bordWgPNZeQGQtbE JUAEEoR2EphZcyIg6avHn5 pEtiIoixUVD6Oca0ZQ6pdd 42dla0wDfnMTHqryxfVmH7 YPlzLXLjtgkjFQn3FFnjSC JnbDcyMFxtYXJncjcyMFxt YXJndDcyMFxtYXJnYjcyMF hvJXQxOWF1SRqmc052QRK3 FFpss8ojp9ypxPJfVeh8MW IoGjToEzcvYEian2Kgv3pc QNRdxg4jFDB2rNLmhJugu8 U5nWUyFDGoeCCpuyMmKDXy DdB0UHsiGD9fuc29MNFgYF Z5sd9zqHVkjRprxqTgmOWk ZYezJ1AjZNUql583ECSdH1 ZiUGSxr0D2wnLpZfBjADVd gFY5coO9LKLkDLs7iZXfds K1jlCumDScZ4yooX62EmDs hRCiR0MjzS10VwRbhUDrU9 DtlQ99SnDdzBTaC8MsxC13 PqKzaBVgEUJysWRjYq3cbA XpdACwz9UlnULxALpqI59h n355YVCdprVvE5quhLXwfo nikDVoqcalGJiimfL8HHLe XHBsYWluXGYxXGZzMjJcbG FuZzEwMzNcaGljaFxmMVxk NrKbLVGdJVjwW8zoFkVjAi TjTeTmCIWfGN4gzlOljTXh ciBmbHVpZDsgNCBjeXRvc3 CmqkCdZPIguXzkQtpiJ5qn fQQgWHQavMcwQ9RaTMeyND YxMjIwXHBhciBSZWNlaXZl ZDogMDYxNTIwXHBhcn0= STATEMENT OF ADEQUACY Satisfactory (test code = 2757) Gross assessment was [facility] performed at ([facility], = 2777) Department of Pathology, [address] [place] [address], Technical component was [facility] performed at ([facility], = 277) Department of Pathology, [address] [place] [address], Professional component [facility] was performed at ([facility], code = 2779) Department of Pathology, [address] [place] [address], [facility] 13:38:00Medical Cytology Report Case: [id number] Aut horizing Provider: Yoly Qiu NP Collected: 11/16/2019 05:02 PM Ordering Location: [place] [address] ccu Received: 11/19/2019 11:07 AM Pathologist: Tate Barksdale MD Specimen: Pleural, Right PLEURAL, RIGHT, FLUID (CYTOSPINS AND CELL BLOCK): - NEGATIVE FOR MALIGNANCY - Reactive mesothelial cells present Signing Pathologist Direct Phone Line: [phone] signed by Tate Barksdale MD on 11/20/2019 at 1:38 [id number], [id number] pleural effusion, history of infiltrating squamous cell carcinoma of the right lower lobe lungPLEURAL, RIGHT [id number] mls bri fluid; 4 cytospins, cellblockCollected: [id number]: [id number] [facility], Department of Pathology, [address] [place] [address], [facility], [facility] of [facility], [address] [place] [address], [facility], Department of [facility]ology, [address] [place] [address], ZDOVHMPEM 2019-11-20 05:18:00 Test Item Value Reference Range Interpretation Comments MAGNESIUM (BEAKER) 2.2 mg/dL 1.6-2.6 Specimen slightly (test code = 627) hemolyzed Dopster ID - RUFUS [id number] 05:18:00 Test Item Value Reference Range Interpretation Comments PHOSPHORUS (BEAKER) 4.0 mg/dL 2.3-4.7 Specimen slightly (test code = 604) hemolyzed Dopster ID - RUFUS MBASIC METABOLIC [id number] 05:18:00 Test Item Value Reference Range Interpretation [...] S NOT APPLICABLE FOR DIALYSIS PATIEN TS. Dopster ID - RUFUS MCBC W/PLT COUNT & AUTO [id number] 05:05:00 Test Item Value Reference Range Interpretation [...] = 2801) RAD, CHEST, 1 VIEW, NON [id number] 03:29:00Reason for exam:->RLL Carcinoma, frequent pleural effusion.Should [...] Mayela Caraballo MDReport Verified Date/Time: 11/20/2019 03:29:54 [id number] 04:48:00 Test Item Value Reference Range Interpretation Comments MAGNESIUM (BEAKER) 2.1 mg/dL 1.6-2.6 Specimen slightly (test code = 627) hemolyzed Dopster ID - PIAYA LBASIC METABOLIC [id number] 04:48:00 Test Item Value Reference Range Interpretation [...] S NOT APPLICABLE FOR DIALYSIS PATIEN TS. Dopster ID - PIAYA [id number] 04:21:00 Test Item Value Reference Range Interpretation Comments PHOSPHORUS (BEAKER) 3.7 mg/dL 2.3-4.7 Specimen slightly (test code = 604) hemolyzed Dopster ID - PIAYA LRAD, CHEST, 1 VIEW, NON [id number] 03:54:00Reason for exam:->RLL Carcinoma, frequent pleural effusion.Should this be performed at the bedside?->YesFINAL REPORT RAD, CHEST, 1 VIEW, NON DEPT INDICATION: RLL Carcinoma, frequentpleural effusion. COMPARISON: Prior day's exam FINDINGS: Portable frontal view of the chest. IMPRESSION: Support Lines: Stable. Lungs and pleura: Unchanged airspace and pleural opacities. No pneumothorax.Heart and mediastinum: Stable contours. Stable surgical changes.Additional findings: None. Signed: Beverly Ugarteroberto carlos Verified Date/Time: 11/19/2019 03:54:04 CBC W/PLT COUNT [...] (BEAKER) (test code = 2801) Hemoglobin and [id number] 22:17:00 Test Item Value Reference Range Interpretation Comments Hemoglobin (test code = 10.1 13.7- 17.5 GM/DL L 786-4) Hematocrit (test code = 31.7 % 40.1-51 L 4544-3) FAIZA (test code = FAIZA) Dopster ID - 6000 Lab Interpretation (test Abnormal code = 49002-6) [facility]HEMOGLOB[facility] AND [id number] 22:17:00 Test Item Value Reference Range Interpretation Comments HEMOGLOBIN (BEAKER) (test code = 10.1 GM/DL 13.7-17.5 L 410) HEMATOCRIT (BEAKER) (test code = 31.7 % 40.1-51.0 L 411) Dopster ID - 6000Blood [id number] 20:00:00 Test Item Value Reference Range Interpretation Comments Result (test code = No growth in 5 days 6463-4) [facility] HospitalBLOOD [id number] 20:00:00 Test Item Value Reference Range Interpretation Comments CULTURE (BEAKER) (test No growth in 5 days code = 1095) BLOOD [id number] 20:00:00 Test Item Value Reference Range Interpretation Comments CULTURE (BEAKER) (test No growth in 5 days code = 1095) [id number] 04:53:00 Test Item Value Reference Range Interpretation Comments PHOSPHORUS (BEAKER) (test code = 2.7 mg/dL 2.3-4.7 604) Dopster ID - PEACE [id number] 04:53:00 Test Item Value Reference Range Interpretation Comments MAGNESIUM (BEAKER) (test code = 2.0 mg/dL 1.6-2.6 627) Dopster ID - PEACE LBASIC METABOLIC [id number] 04:53:00 Test Item Value Reference Range Interpretation [...] S NOT APPLICABLE FOR DIALYSIS PATIEN TS. Dopster ID - TANNERSHER LCBC W/PLT COUNT & AUTO [id number] 04:34:00 Test Item Value Reference Range Interpretation [...] = 2801) RAD, CHEST, 1 VIEW, NON [id number] 03:41:00Reason for exam:->RLL Carcinoma, frequent pleural effusion.Should [...] (test code = 2.3 mg/dL 1.6-2.6 627) Dopster ID - DBBASIC METABOLIC [id number] 18:29:00 Test Item Value Reference Range Interpretation [...] S NOT APPLICABLE FOR DIALYSIS PATIEN TS. Dopster ID - DBHEMOGLOBIN AND [id number] 18:08:00 Test Item Value Reference Range Interpretation Comments HEMOGLOBIN (BEAKER) (test code = 9.4 GM/DL 13.7-17.5 L 410) HEMATOCRIT (BEAKER) (test code = 29.9 % 40.1-51.0 L 411) Dopster ID - 6000Plasma free byljglnnln8386-32-30 12:52:00 Test Item Value Reference Range Interpretation Comments Hgb, Plasma (test code = 721-1) 40.0 mg/dl 0-30 H Lab Interpretation (test code = Abnormal 45727-1) [facility] HospitalPL[facility]MA FREE [id number] 12:52:00 Test Item Value Reference Range Interpretation Comments HEMOGLOBIN PLASMA (BEAKER) (test 40.0 mg/dl 0.0-30.0 H code = 1054) HEMOGLOBIN AND [id number] 12:25:00 Test Item Value Reference Range Interpretation Comments HEMOGLOBIN (BEAKER) (test code = 10.0 GM/DL 13.7-17.5 L 410) HEMATOCRIT (BEAKER) (test code = 31.8 % 40.1-51.0 L 411) Dopster ID - [id number], CHEST, 1 VIEW, NON [id number] 05:00:00Reason for exam:->RLL Carcinoma, frequent pleural effusion.Should [...] CARABALLO MD on 11/16 05:00 AMBASIC METABOLIC [id number] 04:21:00 Test Item Value Reference Range Interpretation [...] S NOT APPLICABLE FOR DIALYSIS PATIEN TS. Dopster ID - RUFUS [id number] 04:18:00 Test Item Value Reference Range Interpretation Comments MAGNESIUM (BEAKER) 1.9 mg/dL 1.6-2.6 Specimen slightly (test code = 627) hemolyzed Dopster ID - RUFUS [id number] 04:18:00 Test Item Value Reference Range Interpretation Comments PHOSPHORUS (BEAKER) 2.7 mg/dL 2.3-4.7 Specimen slightly (test code = 604) hemolyzed Dopster ID - RUFUS MCBC W/PLT COUNT & AUTO [id number] 03:59:00 Test Item Value Reference Range Interpretation [...] = 2801) RAD, CHEST, 1 VIEW, NON [id number] 17:55:00Reason for exam:->post right sided thoracentesisShould this [...] contours. Additional findings: None. Signed: Madison Davison MDReport VerifiedDate/Time: 11/16/2019 17:55:32 Reading Location: [facility] C013V Neuro Reading Room Transesophageal echo 2019-11-16 13:45:22Ejection FractionSLEH ECHO HEARTLAB MKCKESSON CPACSInterface, External Ris In - 11/16/2019 1:45 PM CDTTransesophageal Echocardiography Report (MAKAYLA) Demographics Patient Name MAYRA, Date of Study 11/15/2019 ARTHUR Gender Male Visit Number [id number] Race Unknown Room Number 6104 Number Date of 1930 Referring Physician Gabriel Streeter MD Age 89 year(s) Extension Service Specialist In Charge Rex Hein Interpreting Gabriel Streeter MD Physician [...] effusion. Signature Findings Rhythm/BP Interventional MAKAYLA (cpt 51142) for guidance of percutaneous intracardiac procedure. 3D imaging (cpt 36781) rendering with interpretation was performed. Left The [...] pericardial effusion is visualized based on available views.[facility] W/Doppler(CW/PW/Color)2019-11-16 13:41:49Ejection FractionSLEH ECHO HEARTLAB MKCKESSON CPACSInterface, External Ris In - 11/16/2019 1:41 PM CDTTransthoracic Echocardiography Report (TTE) Demographics Patient Name MAYRA, Date of Study 11/16/2019 ARTHUR Gender Male Visit Number [id number] Race Unknown Room Number 6104 Number Date of 1930 Referring Physician ALEXANDER MUNSON Age 89 year(s) Extension Service Specialist In Charge Britni Prabhakar [facility] Fulfillment Associate Patrick Wilson Interpreting Gabriel Streeter MD Physician [...] mild. 4. Mild to moderate mitral regurgitation. Ngvc-dc-jponzbxh tricuspid regurgitation Previous Study In comparison with [...] Mild to moderate mitral regurgitation. Tricuspid Valve Ddpf-rt-fhftkxpp tricuspid regurgitation. Estimated peak systolic PA pressure [...] CO: 5.32 l/min LVOT CI: 2.92 l/min/m^2[facility]bin [facility]/[id number] 12:12:00 Test Item Value Reference Range Interpretation [...] valves. Lab Interpretation Abnormal (test code = 85976-1) [facility] HospitalPT/[id number] 12:12:00 Test Item Value Reference Range Interpretation Comments Protime (test code = 15.7 11.9- 14.2 H 5902-2) seconds INR (test code = 1.3 <=5.9 6301-6) PTT (test code = 37.0 22.5- 36.0 H 88645-7) seconds FAIZA (test code = FAIZA) Effective 11/01/2018: PT Reference Range ChangeNew: 11.9-14.2 Previous: 11.7-14.7 RECOMMENDED COUMADIN/WARFARIN INR THERAPY RANGESSTANDARD DOSE: 2.0-3.0 Includes: PROPHYLAXIS for venous thrombosis, systemic embolization; TREATMENT for venous thrombosis and/or pulmonary embolus.HIGH RISK: Target INR is 2.5-3.5 for patients wiht mechanical heart valves. Lab Interpretation Abnormal (test code = 96634-8) [facility] HospitalPROTHROMBIN TIME/[id number] 12:12:00 Test Item Value Reference Range Interpretation [...] INR is2.5-3.5 for patients wiht mechanical heart valves.PT/[id number] 12:12:00 Test Item Value Reference Range Interpretation [...] INR is2.5-3.5 for patients wiht mechanical heart valves.[id number] 10:07:00 Test Item Value Reference Range Interpretation Comments Haptoglobin (test code = 226 mg/dL 14-258 4542-7) FAIZA (test code = FAIZA) Dopster ID - NTP Lab Interpretation (test Normal code = 87593-9) [facility] HospitalHAPTOGLOBIN2020-06-12 10:07:00 Test Item Value Reference Range Interpretation Comments HAPTOGLOBIN (BEAKER) (test code = 226 mg/dL 14-258 366) Dopster ID - NTPReticulocyte [id number] 09:49:00 Test Item Value Reference Range Interpretation Comments % Retic (test code = 1.6 % 0.5-1.8 33647-3) FAIZA (test code = FAIZA) Dopster ID - 6000 Lab Interpretation (test Normal code = 03768-6) [facility] HospitalRETICULOCYTE [id number] 09:49:00 Test Item Value Reference Range Interpretation Comments RETICULOCYTE COUNT PCT (BEAKER) (test 1.6 % 0.5-1.8 code = 575) Dopster ID - 6000HEMOGLOBIN AND [id number] 09:49:00 Test Item Value Reference Range Interpretation Comments HEMOGLOBIN (BEAKER) (test code = 10.3 GM/DL 13.7-17.5 L 410) HEMATOCRIT (BEAKER) (test code = 31.7 % 40.1-51.0 L 411) Dopster ID - RacquelLactate dehydrogenase (LDH)2019-11-16 09:45:00 Test Item Value Reference Range Interpretation Comments LDH (test code = 2532-0) 191 U/L 125-220 FAIZA (test code = FAIZA) Dopster ID - ALEX Lab Interpretation (test Normal code = 11153-5) [facility] HospitalLACTATE DEHYDROGENASE (LDH)2019-11-16 09:45:00 Test Item Value Reference Range Interpretation Comments LACTATE DEHYDROGENASE (BEAKER) (test 191 U/L 125-220 code = 635) Dopster ID - ABNERGRAD, CHEST, 1 VIEW, NON [id number] 04:46:00Reason for exam:->RLL Carcinoma, frequent pleural effusion.Should this be performed at the bedside?->YesFINAL REPORT RAD, CHEST, 1 VIEW, NON DEPT INDICATION: RLL Carcinoma, frequentpleural effusion. COMPARISON: Prior day's exam FINDINGS: Portable frontal view of the chest. IMPRESSION: Support Lines: Stable. Lungs and pleura: Unchanged airspace and pleural opacities. No pneumothorax.Heart and mediastinum: Stable contours. Stable surgical changes.Additional findings: None. Signed: Beverly [facility]ale [facility] Verified Date/Time: 11/16/2019 04:46:58 Blood gas, [id number] 04:39:00 Test Item Value Reference Range Interpretation Comments pH, Arterial (test code = 2744-1) 7.53 7.35-7.45 H pCO2, Arterial (test code = 33 35- 45 mmHg L 2019-01) pO2, Arterial (test code = 2703-7) 180 80- 90 mmHg H O2 Sat, Arterial (test code = 99.4 % 96-97 H 6) HCO3, Arterial (test code = 27 mmol/L 21-29 1959-) Base Excess, Arterial (test code = 3.9 mmol/L -2-3 H 1925-7) Patient Temperature (test code = 37.0 C 8310-5) FIO2 (test code = 1819) 40 % Lab Interpretation (test code = Abnormal 68585-8) [facility] HospitalBLOOD GAS, [id number] 04:39:00 Test Item Value Reference Range Interpretation [...] (BEAKER) (test code = 1819) 40.0 % [id number] 03:16:00 Test Item Value Reference Range Interpretation Comments PHOSPHORUS (BEAKER) (test code = 4.2 mg/dL 2.3-4.7 604) Dopster ID - RUFUS [id number] 03:16:00 Test Item Value Reference Range Interpretation Comments MAGNESIUM (BEAKER) (test code = 2.0 mg/dL 1.6-2.6 627) Dopster ID - RUFUS MBASIC METABOLIC [id number] 03:16:00 Test Item Value Reference Range Interpretation [...] S NOT APPLICABLE FOR DIALYSIS PATIEN TS. Dopster ID - RUFUS MCBC W/PLT COUNT & AUTO [id number] 03:14:00 Test Item Value Reference Range Interpretation [...] (BEAKER) (test code = 2801) BLOOD GAS, [id number] 00:29:00 Test Item Value Reference Range Interpretation [...] code = 1819) 40.0 % BLOOD GAS, [id number] 22:26:00 Test Item Value Reference Range Interpretation [...] 40.0 % RAD, CHEST, 1 VIEW, NON [id number] 21:22:00Reason for exam:->post intubationShould this be performed [...] Ugarte Verified Date/Time: 11/15/2019 21:22:15 Comprehensive metabolic [id number] 17:23:00 Test Item Value Reference Range Interpretation Comments Protein, Total (test 5.5 6.0- 8.3 gm/dL L Speci men slightly code = 2885-2) hemolyzed Albumin (test code = 2.4 g/dL 3.5-5 L Specime n slightly 00129-1) hemolyzed Alkaline Phosphatase 54 U/L 40-150 (test code = 6768-6) Total Bilirubin (test 0.8 mg/dL 0.2-1.2 Specim en slightly code = 1975-2) hemolyzed Sodium (test code = 138 meq/L 788-191 7214-2) Potassium (test code = 3.5 meq/L 3.5-5.1 Speci men slightly 2823-3) hemolyzed Chloride (test code = 103 meq/L 98-107 2074-0) CO2 (test code = 25 meq/L 22-29 2027-9) BUN (test code = 17 mg/dL 7-21 3094-0) Creatinine (test code 1.03 mg/dL 0.57-1.25 Specim en slightly = 2160-0) hemolyzed Glucose (test code = 164 mg/dL 70-105 H 2345-7) Calcium (test code = 8.4 mg/dL 8.4-10.2 76600-6) AST (test code = 19 U/L 5-34 Specimen sl ightly 1920-8) hemolyzed ALT (test code = 14 U/L 6-55 Specimen sl ightly 1742-6) hemolyzed EGFR (test code = 68 mL/min/1.73 [place] [address]-3) NOT ACCURATE CREATININE CLEARANCE IN PREDICTING GLOMERULAR FILTRATION RATE . ESTIMATED GFR I S NOT APPLICABLE FOR DIALYSIS PATIENTS. FAIZA (test code = FAIZA) Dopster ID - BS Lab Interpretation Abnormal (test code = 89619-6) [id number]00 Test Item Value Reference Range Interpretation Comments MAGNESIUM (BEAKER) 2.1 mg/dL 1.6-2.6 Specimen slightly (test code = 627) hemolyzed Dopster ID - BSCOMPREHENSIVE METABOLIC [id number] 17:23:00 Test Item Value Reference Range Interpretation [...] S NOT APPLICABLE FOR DIALYSIS PATIEN TS. Dopster ID - BSBLOOD GAS, [id number] 17:07:00 Test Item Value Reference Range Interpretation [...] 60.0 % CBC W/PLT COUNT & AUTO [id number] 17:07:00 Test Item Value Reference Range Interpretation [...] PERCENT (BEAKER) (test code = 2801) Prepare [id number] 16:14:00 Test Item Value Reference Range Interpretation Comments CROSSMATCH (test code = COMPATIBLE 8543) Unit ABO (test code = A Pos 7300343) UNIT NUMBER (test code = [id number] 934-0) Status (test code = RETURNED FROM ISSUE 9339312) Blood Bank Product (test RED BLOOD CELLS code = 2263) PRODUCT CODE (test code = [id number] 933-2) [facility] [id number] 14:24:00 Test Item Value Reference Range Interpretation Comments Activated Clotting Time 252 sec : 74 -137 seconds, (test code = 441) Baseline: TESTED AT [facility] [address] [facility] [place], [address]: Dopster/Techni sophie ID = [id number] for [facility]YNN CAMP [id number] 14:24:00 Test Item Value Reference Range Interpretation Comments ACTIVATED CLOTTING TIME 252 sec : 74 -137 seconds, (BEAKER) (test code = Baseli ne: TESTED AT [address] [facility] [address] [facility] [place], [address]: Dopster/Techni sophie ID = [id number] for JOLYNN CAMP Calcium, [id number] 13:44:00 Test Item Value Reference Range Interpretation Comments Calcium, Ion (test code = 1994-3) 1.10 mmol/L 1.12-1.27 L pH, Blood (test code = 90888-6) 7.52 Lab Interpretation (test code = Abnormal 39597-4) [facility] [id number] 13:44:00 Test Item Value Reference Range Interpretation Comments Hemoglobin (test code = 786-4) 11.4 g/dL 13-16.8 L Hematocrit (test code = 4544-3) 34.0 % 40-50 L Lab Interpretation (test code = Abnormal 49061-7) [facility] [id number] 13:44:00 Test Item Value Reference Range Interpretation Comments Glucose (test code = 2345-7) 113 mg/dL 70-110 H Lab Interpretation (test code = Abnormal 84869-1) [facility] [id number] 13:44:00 Test Item Value Reference Range Interpretation Comments Sodium (test code = 2951-2) 133 meq/L 136-145 L Lab Interpretation (test code = Abnormal 37253-0) [facility], [id number] 13:44:00 Test Item Value Reference Range Interpretation [...] code = 1819) 60.0 % SODIUM NA-STAT [id number] 13:44:00 Test Item Value Reference Range Interpretation Comments SODIUM (BEAKER) (test code = 381) 133 meq/L 136-145 L GLUCOSE-STAT [id number] 13:44:00 Test Item Value Reference Range Interpretation Comments GLUCOSE RANDOM (BEAKER) (test code 113 mg/dL 70-110 H = 652) HGB/HCT (H&H) - STAT [id number] 13:44:00 Test Item Value Reference Range Interpretation Comments HEMOGLOBIN (BEAKER) (test code = 11.4 g/dL 13.0-16.8 L 410) HEMATOCRIT (BEAKER) (test code = 34.0 % 40.0-50.0 L 411) CALCIUM, [id number] 13:44:00 Test Item Value Reference Range Interpretation Comments CALCIUM IONIZED (BEAKER) (test 1.10 mmol/L 1.12-1.27 L code = 698) PH, BLOOD (BEAKER) (test code = 7.52 1810) Potassium-Stat [id number] 13:43:00 Test Item Value Reference Range Interpretation Comments Potassium (test code = 2823-3) 3.6 meq/L 3.6-5.5 Lab Interpretation (test code = Normal 76512-3) [facility] [id number] 13:43:00 Test Item Value Reference Range Interpretation Comments POTASSIUM (BEAKER) (test code = 3.6 meq/L 3.6-5.5 379) POC-Glucose [id number] 12:11:00 Test Item Value Reference Range Interpretation Comments POC-Glucose Meter (test 116 mg/dL 70-110 H : TE STED AT [facility] code = 1538) [address] [place], [address]: Dopster/Techni sophie ID = [id number] for DEBORAH SANDRA Lab Interpretation (test Abnormal code = 61229-7) [facility] [id number] 12:11:00 Test Item Value Reference Range Interpretation Comments POC-GLUCOSE METER 116 mg/dL 70-110 H : TESTED A T [facility] 6720 (BEAKER) (test code = CRISTA Estevez [facility], 1538) [address]: Dopster/Techni sophie ID = [id number] for BE DEBORAH ONEILL RAD, CHEST, 1 VIEW, NON [id number] 04:58:00Reason for exam:->RLL Carcinoma, frequent pleural effusion.Should [...] contours. Additional findings: None. Signed: Mayela Caraballo [facility] Verified Date/Time: 11/15/2019 04:58:43 [id number] 04:00:00 Test Item Value Reference Range Interpretation Comments PHOSPHORUS (BEAKER) (test code = 3.1 mg/dL 2.3-4.7 604) Dopster ID - PEACE [id number] 04:00:00 Test Item Value Reference Range Interpretation Comments MAGNESIUM (BEAKER) (test code = 2.0 mg/dL 1.6-2.6 627) Dopster ID - PEACE LBASIC METABOLIC [id number] 04:00:00 Test Item Value Reference Range Interpretation [...] S NOT APPLICABLE FOR DIALYSIS PATIEN TS. Dopster ID - PIAYA [id number] 03:53:00 Test Item Value Reference Range Interpretation Comments PTT (test code = 27705-7) 79.3 22.5- 36.0 seconds H Lab Interpretation (test code = Abnormal 33263-4) [facility] Test Item Value Reference Range Interpretation Comments PARTIAL THROMBOPLASTIN TIME 79.3 seconds 22.5-36.0 H (BEAKER) (test code = 760) CBC W/PLT COUNT & AUTO [id number] 03:39:00 Test Item Value Reference Range Interpretation [...] = 2801) RAD, CHEST, 1 VIEW, NON [id number] 23:40:00Reason for exam:->coughing up bloodShould this be [...] contours. Additional findings: None. Signed: Beverly Ugarte MDReport Verified Date/Time: 11/14/2019 23:40:14 CBC W/PLT COUNT & AUTO [id number] 22:59:00 Test Item Value Reference Range Interpretation [...] (BEAKER) (test code = 2801) BASIC METABOLIC [id number] 06:46:00 Test Item Value Reference Range Interpretation [...] S NOT APPLICABLE FOR DIALYSIS PATIEN TS. Dopster ID - RUFUS [id number] 06:35:00 Test Item Value Reference Range Interpretation Comments PHOSPHORUS (BEAKER) (test code = 3.1 mg/dL 2.3-4.7 604) Dopster ID - RUFUS [id number] 06:35:00 Test Item Value Reference Range Interpretation Comments MAGNESIUM (BEAKER) (test code = 2.0 mg/dL 1.6-2.6 627) Dopster ID - RUFUS MCBC W/PLT COUNT & AUTO [id number] 06:12:00 Test Item Value Reference Range Interpretation [...] 0-1 PERCENT (BEAKER) (test code = 2801) [id number] 06:00:00 Test Item Value Reference Range Interpretation Comments PARTIAL THROMBOPLASTIN TIME 79.4 seconds 22.5-36.0 H (BEAKER) (test code = 760) RAD, CHEST, 1 VIEW, NON [id number] 04:47:00Reason for exam:->RLL Carcinoma, frequent pleural effusion.Should [...] Mayela Caraballo MDReport Verified Date/Time: 11/14/2019 04:47:35 [id number] 01:22:00 Test Item Value Reference Range Interpretation Comments PARTIAL THROMBOPLASTIN TIME 72.3 seconds 22.5-36.0 H (BEAKER) (test code = 760) [id number] 17:51:00 Test Item Value Reference Range Interpretation Comments PARTIAL THROMBOPLASTIN TIME 64.3 seconds 22.5-36.0 H (BEAKER) (test code = 760) Type and screen, [id number] 13:33:00 Test Item Value Reference Range Interpretation Comments ABO/RH AUTOMATED (BEAKER) (test A POSITIVE code = 2260) Ab Scrn (test code = 890-4) NEGATIVE [facility] + Reflex to Culture 2019-11-13 12:50:00 Test Item Value Reference Range Interpretation Comments Color, UA (test code = Light Yellow 5778-6) Clarity, UA (test code Clear = 5767-9) Specific Mikado, UA 1.014 1.001-1.035 (test code = 5811-5) pH, UA (test code = 6.5 5.0-8.0 5803-2) Protein, UA (test code Negative Negative = 13551-2) Glucose, UA (test code Negative Negative = 365) Ketones, UA (test code Negative Negative = 2514-8) Bilirubin, UA (test Negative Negative code = 15736-8) Blood, UA (test code = Negative Negative 36401-4) Nitrite, UA (test code Negative Negative = 5802-4) Leukocytes, UA (test Negative Negative code = 5799-2) Urobilinogen, UA (test 0.2 mg/dL 0.2-1 code = 05897-6) RBC, UA (test code = 1 /HPF 54780-7) WBC, UA (test code = 1 /HPF 5821-4) Squam Epithel, UA (test <1 /HPF code = 30672-2) Hyaline Casts, UA (test 1 /LPF code = 89685-7) Yeast (test code = Rare 30737-5) Specimen Source (test code = 2795) FAIZA (test code = FAIZA) Dopster ID - [auto]Dopster ID - tech [facility]/ REFLEX URINE [id number] 12:50:00 Test Item Value Reference Range Interpretation [...] Rare 1585) SOURCE(BEAKER) (test code = 2795) Dopster ID - [auto]Dopster ID - [id number] 12:32:00 Test Item Value Reference Range Interpretation Comments PARTIAL THROMBOPLASTIN TIME 73.5 seconds 22.5-36.0 H (BEAKER) (test code = 760) CALCIUM, [id number] 06:07:00 Test Item Value Reference Range Interpretation Comments CALCIUM IONIZED (BEAKER) (test 1.10 mmol/L 1.12-1.27 L code = 698) PH, BLOOD (BEAKER) (test code = 7.44 1810) [id number] 05:55:00 Test Item Value Reference Range Interpretation Comments PARTIAL THROMBOPLASTIN TIME 60.7 seconds 22.5-36.0 H (BEAKER) (test code = 760) Hepatic function [id number] 05:33:00 Test Item Value Reference Range Interpretation Comments Protein, Total (test code 5.4 6.0- 8.3 gm/dL L = 2885-2) Albumin (test code = 2.5 g/dL 3.5-5 L 44820-8) Total Bilirubin (test code 0.9 mg/dL 0.2-1.2 = 1975-2) Bilirubin, Direct (test 0.5 mg/dL 0.1-0.5 code = 1968-7) Alkaline Phosphatase (test 54 U/L 40-150 code = 6768-6) AST (test code = 1920-8) 15 U/L 5-34 ALT (test code = 1742-6) 17 U/L 6-55 FAIZA (test code = FAIZA) Dopster ID - RUFUS M Lab Interpretation (test Abnormal code = 19976-7) [facility] 05:33:00 Test Item Value Reference Range Interpretation Comments PHOSPHORUS (BEAKER) (test code = 2.9 mg/dL 2.3-4.7 604) Dopster ID - RUFUS [id number] 05:33:00 Test Item Value Reference Range Interpretation Comments MAGNESIUM (BEAKER) (test code = 2.1 mg/dL 1.6-2.6 627) Dopster ID - RUFUS MBASIC METABOLIC [id number] 05:33:00 Test Item Value Reference Range Interpretation [...] S NOT APPLICABLE FOR DIALYSIS PATIEN TS. Dopster ID - RUFUS EPATIC FUNCTION [id number] 05:33:00 Test Item Value Reference Range Interpretation [...] (test code = 17 U/L 6-55 347) Dopster ID - RUFUS MCBC W/PLT COUNT & AUTO [id number] 05:32:00 Test Item Value Reference Range Interpretation [...] 0-1 PERCENT (BEAKER) (test code = 2801) [id number] 20:40:00 Test Item Value Reference Range Interpretation Comments PARTIAL THROMBOPLASTIN TIME 51.3 seconds 22.5-36.0 H (BEAKER) (test code = 760) BASIC METABOLIC [id number] 17:28:00 Test Item Value Reference Range Interpretation [...] S NOT APPLICABLE FOR DIALYSIS PATIEN TS. Dopster ID - [id number] 15:58:00Medical Cytology Report Case: [id number] Authorizing Provider: Yoly Qiu NP Collected: 11/11/2019 05:22 PM Ordering Location: [place] [address] ccu Received: 11/12/2019 09:03 AM Pathologist: Berenice Eng MD Specimen: Pleural, Right RIGHT PLEURAL FLUID (CYTOSPINS): - REACTIVE MESOTHELIAL CELLS IN A BACKGROUND OF MIXED INFLAMMATION - MALIGNANT CELLS NOT IDENTIFIED Signing Pathologist Direct Phone Line: [phone] signedby Berenice Eng MD on 11/12/2019 at 3:58 [id number] pleural effusion, recently diagnosed with lung cancer (see surgical case [id number])RIGHT PLEURAL FLUID 8 mls clear yellow-orange fluid; 4 cytospinsCollected: [id number]: [id number].[facility], Department of Pathology, [address] [place] [address], [facility], Department of Pathology, [address] [place] [address], [facility], [facility] of [facility], [address] [place] [address], [id number] 13:20:00 Test Item Value Reference Range Interpretation Comments PARTIAL THROMBOPLASTIN TIME 43.7 seconds 22.5-36.0 H (BEAKER) (test code = 760) HEPATIC FUNCTION [id number] 11:36:00 Test Item Value Reference Range Interpretation [...] (test code = 18 U/L 6-55 347) Dopster ID - DONNA [id number] 06:10:00 Test Item Value Reference Range Interpretation Comments PHOSPHORUS (BEAKER) (test code = 3.4 mg/dL 2.3-4.7 604) Dopster ID - RUFUS [id number] 06:10:00 Test Item Value Reference Range Interpretation Comments MAGNESIUM (BEAKER) (test code = 2.1 mg/dL 1.6-2.6 627) Dopster ID - RUFUS MBASIC METABOLIC [id number] 06:10:00 Test Item Value Reference Range Interpretation [...] S NOT APPLICABLE FOR DIALYSIS PATIEN TS. Dopster ID - RUFUS MCBC W/PLT COUNT & AUTO [id number] 06:06:00 Test Item Value Reference Range Interpretation [...] 0-1 PERCENT (BEAKER) (test code = 2801) [id number] 05:47:00 Test Item Value Reference Range Interpretation Comments PARTIAL THROMBOPLASTIN TIME 45.4 seconds 22.5-36.0 H (BEAKER) (test code = 760) [id number] 21:56:00 Test Item Value Reference Range Interpretation Comments PARTIAL THROMBOPLASTIN TIME 36.0 seconds 22.5-36.0 (BEAKER) (test code = 760) Body fluid cell count with [id number] 14:32:00 Test Item Value Reference Range Interpretation Comments Appearance (test code = 9335-1) Cloudy Clear A Color (test code = 6824-7) Yellow Colorless, Straw A RBCs (test code = 60126-3) 6000 <=1 /cu mm H Adjusted WBC Count (test code = 1392 <=5 /cu mm H 75409-1) Lining Cells (test code = 0 <=1 /cu mm 37751-9) % Segs (test code = 32540-9) 37 % % Lymphs (test code = 13003-4) 44 % % Monos (test code = 17215-0) 19 % % Eos (test code = 65558-4) 0 % % Baso (test code = 23347-7) 0 % Container Body Fluid (test code Sterile Vial = 2873) Lab Interpretation (test code = Abnormal 26425-5) [facility] WITH [id number] 14:32:00 Test Item Value Reference Range Interpretation [...] (BEAKER) Sterile Vial (test code = 2873) [id number] 13:31:00 Test Item Value Reference Range Interpretation Comments PARTIAL THROMBOPLASTIN TIME 35.1 seconds 22.5-36.0 (BEAKER) (test code = 760) 6 hours after starting heparin infusion and as indicated per sliding scaleU/S, [id number] 13:03:00Laterality?->RightReason for exam:- >pleural effusionShould this be [...] 2% lidocaine anesthesia was administered. A 4 Citizen [place] catheter was advanced into the pleural cavity and 1200 cc of serosanguineous fluid was removed. The catheter was removed without immediate complication. Samples were left at the patient's bedside. IMPRESSION:Uncomplicated ultrasound-guided right thoracentesis with 1200 cc fluid removed. Signed: Td Tranort Verified Date/Time: 11/11/2019 13:03:08 Reading Location: [address] Body Reading Room RAD, CHEST, 1 VIEW, NON [id number] 12:24:00Reason for exam:->s/p ThoracentesisShould this be performed [...] radiograph from earlier same date. Signed: Td Tranort Verified Date/Time: 11/11/2019 12:24:42 Reading Location: [address] Body Reading Room RAD, CHEST, 1 VIEW, NON [id number] 09:18:00Reason for exam:->sobShould this be performed at the bedside?->Yes FINAL REPORT Chest, one view HISTORY: Shortness of breath Comparison: 11/09/2019 Findings: Lungs: Patchy bilateral airspace disease, similar to previous examination. Heart: Normal in size. Pleura: Moderate right pleural effusion, similar in size. No pneumothorax is apparent. Bones: Unremarkable. Lines/tubes: Unchanged satisfactory position of right PICC line. Signed: Travis Bermudez Verified Date/Time: 11/11/2019 09:18:25 Reading Location: [facility] [id number] Ortho Consult Reading Room CBC W/PLT COUNT & AUTO [id number] 06:43:00 Test Item Value Reference Range Interpretation [...] 0-1 PERCENT (BEAKER) (test code = 2801) [id number] 06:17:00 Test Item Value Reference Range Interpretation Comments PHOSPHORUS (BEAKER) (test code = 3.2 mg/dL 2.3-4.7 604) Dopster ID - [id number] 06:17:00 Test Item Value Reference Range Interpretation Comments MAGNESIUM (BEAKER) (test code = 2.0 mg/dL 1.6-2.6 627) Dopster ID - DBBASIC METABOLIC [id number] 06:17:00 Test Item Value Reference Range Interpretation [...] S NOT APPLICABLE FOR DIALYSIS PATIEN TS. Dopster ID - DBPOCT-GLUCOSE [id number] 12:03:00 Test Item Value Reference Range Interpretation Comments POC-GLUCOSE METER 108 mg/dL 70-110 : TESTED A T [facility] 67[address] (BEAKER) (test code = [place], 1538) [address]: Dopster/Techni sophie ID = [id number] for BETI GONGORA [id number] 11:23:00 Test Item Value Reference Range Interpretation Comments Potassium (test code = 3.5 meq/L 3.5-5.1 2823-3) FAIZA (test code = FAIZA) Dopster ID - DONNA C Lab Interpretation (test Normal code = 16528-1) [facility] 11:23:00 Test Item Value Reference Range Interpretation Comments POTASSIUM (BEAKER) (test code = 3.5 meq/L 3.5-5.1 379) Dopster ID - DONNA [id number] 11:23:00 Test Item Value Reference Range Interpretation Comments MAGNESIUM (BEAKER) (test code = 2.3 mg/dL 1.6-2.6 627) Dopster ID - DONNA CPOCT-GLUCOSE [id number] 07:59:00 Test Item Value Reference Range Interpretation Comments POC-GLUCOSE METER 131 mg/dL 70-110 H : TESTED A T [facility] 6720 (BEAKER) (test code [facility], = 1538) [address]: Dopster/Techni sophie ID = [id number] for TAMICA RIZVI POCT-GLUCOSE [id number] 07:42:00 Test Item Value Reference Range Interpretation Comments POC-GLUCOSE METER 57 mg/dL 70-110 L : TESTED A T [facility] 6720 (BEAKER) (test code = [facility], 1538) [address]: Dopster/Techni sophie ID = [id number] for HELADIO GONZALEZ [id number] 04:50:00 Test Item Value Reference Range Interpretation Comments PHOSPHORUS (BEAKER) (test code = 2.7 mg/dL 2.3-4.7 604) Dopster ID - SOPHIA [id number] 04:50:00 Test Item Value Reference Range Interpretation Comments MAGNESIUM (BEAKER) (test code = 1.8 mg/dL 1.6-2.6 627) Dopster ID - SOPHIA WBASIC METABOLIC [id number] 04:50:00 Test Item Value Reference Range Interpretation [...] S NOT APPLICABLE FOR DIALYSIS PATIEN TS. Dopster ID - SOPHIA WPROTHROMBIN TIME/[id number] 04:19:00 Test Item Value Reference Range Interpretation [...] mechanical heart valves.CBC W/PLT COUNT & AUTO [id number] 04:11:00 Test Item Value Reference Range Interpretation [...] PERCENT (BEAKER) (test code = 2801) POCT-GLUCOSE [id number] 22:30:00 Test Item Value Reference Range Interpretation Comments POC-GLUCOSE METER 121 mg/dL 70-110 H : TESTED Elly Glaser [facility] 6720 (BEAKER) (test code = [place], 1538) [address]: Dopster/Techni sophie ID = [id number] for Marbella Daniels Fungal [id number] 13:00:00 Test Item Value Reference Range Interpretation Comments Fungal Panel1 (test Refer to individual code = 2549) Aspergillus, Blastomyces, Coccidioides & Histoplasma Ab results. [facility] [id number] 11:50:00 Test Item Value Reference Range Interpretation Comments POC-GLUCOSE METER 85 mg/dL 70-110 : [facility] ([facility] (test code = [place], 1538) [address]: Dopster/Techni sophie ID = [id number] for JANY ESPINOZA RAD, CHEST, 1 VIEW, NON [id number] 11:29:00Reason for exam:->shortness of breathShould this be [...] MDReport Verified Date/Time: 11/09/2019 11:29:21 Reading Location: [facility] Radiology Reading Room [id number] 05:40:00 Test Item Value Reference Range Interpretation Comments PHOSPHORUS (BEAKER) (test code = 2.6 mg/dL 2.3-4.7 604) Dopster ID - PEACE [id number] 05:40:00 Test Item Value Reference Range Interpretation Comments MAGNESIUM (BEAKER) (test code = 2.2 mg/dL 1.6-2.6 627) Dopster ID - PEACE LBASIC METABOLIC [id number] 05:40:00 Test Item Value Reference Range Interpretation [...] S NOT APPLICABLE FOR DIALYSIS PATIEN TS. Dopster ID - PIAYA LCBC W/PLT COUNT & AUTO [id number] 05:36:00 Test Item Value Reference Range Interpretation [...] PERCENT (BEAKER) (test code = 2801) POCT-GLUCOSE [id number] 22:16:00 Test Item Value Reference Range Interpretation Comments POC-GLUCOSE METER 94 mg/dL 70-110 : TESTED A T [facility] 6720 (BEAKER) (test code = [place] Este[facility], 1538) [address]: Dopster/Techni sophie ID = [id number] for Word Marbella noyola Lactic acid, [id number] 22:09:00 Test Item Value Reference Range Interpretation Comments Lactate, Venous (test code = 0.96 mmol/L 0.5-2.2 2872) FAIZA (test code = FAIZA) Dopster ID - BS Lab Interpretation (test Normal code = 29413-2) [facility] HospitalLACTIC ACID, [id number] 22:09:00 Test Item Value Reference Range Interpretation Comments LACTATE BLOOD VENOUS (2) (BEAKER) 0.96 mmol/L 0.50-2.20 (test code = 2872) Dopster ID - BSOxygen saturation, [id number] 22:07:00 Test Item Value Reference Range Interpretation Comments O2 Saturation (Measured) (test code = 64.5 % 88985-1) [facility] HospitalOXYGEN SATURATION, [id number] 22:07:00 Test Item Value Reference Range Interpretation Comments O2 SATURATION (MEASURED) (BEAKER) 64.5 % (test code = 1455) POCT-GLUCOSE [id number] 17:32:00 Test Item Value Reference Range Interpretation Comments POC-GLUCOSE METER 103 mg/dL 70-110 : TESTED A T [facility] 67[facility] (BEAKER) (test code = [place], 1538) [address]: Dopster/Techni sophie ID = [id number] for BE NINO, DAVIDAUESEQUIEL FINE NEEDLE ASPIRATE BY [id number] 15:46:00Medical Cytology Report Case: [id number] Authorizing Provider: Luis Alberto Santiago MD Collected: 11/07/2019 04:04 PM Ordering Location: [place] [address] CCU Received: 11/07/2019 05:12 PM Pathologist: Berenice Eng MD Specimen: Lymph Node, Interlobar, Right, Station 11R LYMPH NODE, INT ERLOBAR, RIGHT, STATION 11R, FNA BY CLINICIAN (CYTOSPINS AND CELL BLOCK OF ASPIRATE): - SATISFACTORY FOR EVALUATION - NEGATIVE FOR METASTATIC MALIGNANT CELLS - EVIDENCE OF LYMPH NODE SAMPLING (POLYMORPHOUS LYMPHOID TISSUE PRESENT) Signing Pathologist Direct Phone Line: [phone] signed by Berenice Eng MD on 11/08/2019 at 3:46 PMPlease also see surgical pathology report [id number] and cytopathology reports [id number] and 1350. 180[address], 43488Kspsr lower lobe mass, mediastinal adenopathy, abnormal CT scan of chestLYMPH NODE, INTERLOBAR, RIGHT, STATION 11R FNAReceived 35 ml cytorich red fixative sample; prepared cell block(A2) and 2 cytospinsCollected: [id number]: [id number] tissue is seen in the cell block. [...] evaluated Immunohistochemistry technical testing was performed at [facility], Pathology Laboratory where it was developedand its [...] qualified to perform high complexity clinical laboratory testing.[facility], Department of Pathology, [address] [place] [address], [facility], [address] [place] [address], [facility], [facility] of [facility], [address] [place] [address], Rsub Needle Aspiration by [id number] 15:40:00 Test Item Value Reference Range Interpretation Comments Case Report (test code Medical Cytology = 104) Report Case: [id number] Authorizing Provider: Luis Alberto Santiago MD Collected: 11/07/2019 04:11 PM Ordering Location: [place] [address] CC Received: 11/07/2019 05:12 PM Pathologist: Berenice Eng MD Specimen: Lymph Node, Subcarinal, Station 7 DIAGNOSIS (test code = v6qorHPkUFMip6jhIOIoaV 3220) FuZzEwMzNcZnRuYmpcdWMx ODinomDeBPeti7BgZ7LoFc AwMFxhbnNpXGRlZmxhbmcx IDMcUNI4dnSlRRXgELyuOI IbCKgiKq1uhKOlqBmlPsVp QUVpz1mxldKEcccqtRd4n1 ixNOXqNxF4kMIlDUriN6zs xbHswCIpTJVmAYz4hI57VK ZkvW4zbHXvZLrepsPlHYct boGrvzGbZed8MLGfL3geTR LhOFZtT5TzKN6iIEJeVtr4 DQW2TZG1fVbnb7F1pTZajG ZwlWzhTcFdNwJzJPOWg9Zp WFj4mNlyM2VyZKHrGzE0vP QgUGFyYWdyYXBoIEZvbnQ7 uG60KHewlgV6fWPls7Vtj7 0zy487qY2ntNIkWPU7ATIo DKHzaVUkFVMnVIP3BLIvlV NvY5a3SsYdgYYfO7F1InXi jLDyK8W1LxBfvWFuL2U0Mo LaiQTfWCAymIGpEd2jbQCr cPMuaj7tkb54GZI4k7DzqP aeQVJ0LVG7IcOmVn3fkNXr ZKRfKM3qUkRzvEWgYSQydn 29nItlCCqfgpYmiF2gXxFx TJWjrBOuJYTqCL3sxLIcGS VlsG3xrsssBRDgHnUhwfph CUAjzJoumaJvKq3euYonHB V2OJhwS9seyV9sYdR6EJcg U2ydaJ6lXKv2FJaozMD7VS DpvP5aKJ1opjvba5yeCrMx BH4hglynh7hxJgMbKS7uqv f0d0tpMpGuTZ9wzkbyg4kx NzIwXGhlYWRlcnkwXGZvb3 YlgabmJFYip4GuD2LymKhd T41dhCjtP13nHYMgpBdlqV 1evQvbbI9jZqDwVpZgSSub bFxwbGFpblxmMFxmczIwXH BsYWluXGYxXGZzMjAgTFlN RIoqWi7DLRkaM1RKI9KELF 9URMdbC7GWLIiREsZ4NJLP AhQzRjxhQ9yRMstUDQGMTB nBHHRXM7FHWlEtLF4MQKRW KFhuGemKH2ouA6AgJSYUOX JBVEUpOlxwYXJcbHRycGFy XHFsXHBsYWluXGYwXGZzMj BjpHlrmO5rXaJlNcVeXCPb PP6zxo9gG4FSMDZGUWUUE7 TEBWEXBiJODnCLQJDASX1I XHBhclx+ZJ3wlu7iGrOPBS YXKfWgAq7DAH9DWFSMALLC PZFuKMYIHQqVLL9ZYNFGZD xTXHBhclxwYXJkXHNzcGFy MKY8zPVkscCzrJnnoPwknV 5cZjBcZnMyMFxwbGFpblxm MVxmczIwIFx+NY6iyu4uNT JCQHXWA6NwR8HsPXqEELug Qn2EPCJQGJ6MDNzKLuFgPY 0BTU3UCwJPG2KENXxTKYMR N2cMVYTGZ9EMJWTTCzKSHU 0SPKykWOY7m0okiULoKVBn dGUxODAwMFxhbnNpXGRlZm ayqwlyBDFnZLW6ctTsNFBk BVrvMARpLLizTk2ypPWlyJ gdFwOwRIHjj1pimmUFnpkj iEe6k8gfEENrJeC8bHJgUG btM6crcjRxzYZuYZJvCHq9 uH73ATLwfI6eoTLgDOvpkn LuSkC2SKceVQNaDwI0NEXt dJZlTIKjK1rmYJTqWFegHD XjUIkkyGBrADG5kAyib7D5 bGVzaGVldHtcZjBcZnMyMi GOe9HiYOr1qJoxD7YpCIXm RgP6zHEyMBHiRJmaVMFuWA SswnI9vQ98VAwgkzH6lZKq l1Yjq81ow996iZ2weEOxIK N2NBLlXDNlaEToWKOkMKC4 BMGamIHkD1gnNZNzYT7cid wlBHyaAFeyUSRggVH6YWAn vOBaI9FlPHQnJRexEXJfto g9IxJvSc1klMNzmOoyQVzy i1yqg3tufYYbWht0NUUzWj JfQcxiMXnij3Hvu4wbAVDc ce6uNCH1bJNyqKwsd5S1rO RhJCJymNIeRLKvRH3lhDNa LCJzzR2bdcurECDrAdWbms myWRErnNmlmaSmQr6doRst OLF7QZvaF2yqgC9uByW3ZS xjW0sgeM1bEOr2GQhkSNTt nTN0wdV2AJJowKGzR1CiqS 0cOSQkUV6obld4x8bvALG5 MYzqCGLsXwN2swA4JJBtxS MtWFRsgNraVGylk843REE7 UzRiRGMfo3AdD8JwgNyrK1 8vrHhdJ62jKNXwuOepfK0f fKunhS0pNbHzVtNrVPkpaR zxBD9aERTdR9tccHQkJVIb YTQyV0smGvZzqT5utEihYT jdsoHaPYInJbu0GXOcvNWp OZUrOeh8PODwZYMjS86lrn dvANF8fK5sq1hzt9GaPAqw TYF8MHVmq50tAAeaxeF4IQ icBv5rQpLlRIY8PQyiFID0 fQ== COMMENT (test code = z6eztNKzSKSghLPsTuIaXX 3359) JqJZXcc7scADRjeXLyReVr MzNcZnRuYmpcdWMxXGRlZm Jjr2mwg402wUVhn0ibXNGc NwK9wMIyNHUbnBOwF720IW JbYIrsz6pkr1BkSIFjcYPg i9H9ZKNEaphinSa0eDoxE3 0do6I5HhmhP7rvXBIiHTWt Q2KgGZ7cVUHgRyl2WYW7ZF U6GHBoNOOlO4NwBT9sHVXj cEXiIRp2l9quwFmlGMBePV O8g6muFZluflQxBF0ouv7e lAk5w1mfwrEnEJTzHCBubR HETQCgS0YjpRyqCz8edSj5 mNuwBhtfRQY4Fmf8GE7zlq 55yhk0pYkdFZBomidlMpW9 BZbjSKIlrpqfKEs4NIwtSF JnbDcyMFxtYXJncjcyMFxt YXJndDcyMFxtYXJnYjcyMF fmPWPdDZC2JUndh055PEF1 NHwne8mwj9iqzVMdYcp3JM MaKtLcGqorZJazx8Cjk9vp OFWaie8wLVD4kZVeoHkee3 X4rLObGVLmdMYflbSsKYRi UdU1AEutQG8wlh06JMJbNB S5dk2uzYVylRajmhSzdTWn KLyqF2YnPDOol548EXOdJ5 BfXXKpc2L4zjMuRsLvTYLa gCD3mvO5NLAtSIn7yHOlyw D4atRnvAKuB1omxC08XcYa tSFhG8EneC71OkIapWHuQ4 KbaZ50IcAhbHSuD6UxiG48 ElPkfGRuWOThdCDkIr0ptM HxgTSgs9WmeHDiMMehM67z l151YUAktiHjW1xrsLXctk xoiQUjwplaFAimkoP0MWRw XHBsYWluXGYxXGZzMjBcbG FuZzEwMzNcaGljaFxmMVxk VtYhPRSiDDfwR0uoWoLcSk MyMFxwYXIgUGxlYXNlIGFs l90sm2TgTQW8gudmI6FnQJ RfmBjxvO6fdCKdOZDjjgAf UkHfGEZ8JxivKV5mOGT6tQ 5dHYIvo1zdA5jvajLwp9H3 oeFZVgTwKQO1YXDflcYaKJ U1TG4kPKXuez6= CPT Code(s) (test code u9uqxUVpIAHbmVUkJjYsGD = 3355) HdAJLoj2btDUWfdUCdXqXj MzNcZnRuYmpcdWMxXGRlZm Irc3xmc380dNJpb2nsZJKl QfN9cXXvZYFxlLMbM851t5 ysh8cdljUioHX9CYDwNKO4 KUpryrMevwD3XKgmrPPuVy V0FFwjltMtHBxfliOfjuZw Pzm9PWNsC143AGU0vMjva4 cqYRQ5PCNaFOZqSqJeVy3y wJRnG594SLEsUWCDSDMjdP m4RPFgldMftpRjvYSWr328 C504a3csABLbqdCboKxAgt ptq4wtU924BBAviHTivfUk ZyJxPBSlmLKloWD2VJRnLA 3apjvgNwHnPM3bqasmXjYn LO4wonm7GvYpUE8gqutqPl AyEMilCASkywtfEZGqp9Rb qzymSY2qQ5Ybn4X8tY0tdI ZhKKPrhUQuNdJfZOOjnc4w eZFaYVhid4KnMPG9lnB1vP DgrSEpEVZhAR13Zrgzi2Bo EfrmBPW8YJRztgNnw7Peo5 egVhKpndGoA0azM2ErBIHd WDVpKAYsKbRbvcPvx4Mub3 MuwRXsoWs2x7ddICUkAEMx xGndm2icSGF9NVNrI9G7vY Gvf3piKKapKTIjdPJ2ttgf HRvwRLDscgQ6gewxHZdrGR CumHT0dekqWRxtHZWnWqE4 rxgkITbhQFWdEUH9XOpuy8 68XIA3KVqqJuqbICajRSJx bmNvbnRccGduZGVjXHBsYW luXHBsYWluXGYwXGZzMjRc lDxbtSzrmW8oZuNhFdPbPL coGH5jPMEuD9odjGOyDFEz EZCbY0wzOyPbcR5ghSnfIU cpdyHmHGg0JKpqZUS1SIMp NVxwYXJ9 CLINICAL DATA (test c6uayBTbQGVhdBXzDpPbFW code = 3355) EyASPeu8rtVRFlhAYhDqFf MzNcZnRuYmpcdWMxXGRlZm Oyx3ile626fSOdb7zyESSl AjC6mZKcMGRcnDMkW469PI SnHDjit3vxk7FaUTFluMJu q3U6SFKWjybluHh3cPzoV3 2rw0H0PnccW1zfKNGoNYAf X7TsJN4eZYRzQxz4LNN3NU V7DQQxBHQnM3IkON3jDPFx sRSkPQm1j8nhyNwcKPJaSO D3f8rnQDfluaEhHQ8fui9p pEd4o2djvzFcZXHaKVJzjJ JMPOEkY0VkzJfyMw2cuQs6 pHvcMektDNB4Lvv3LD8jed 13pkw5iMbeXZDkoqtwMbT9 LOfrRJDuwjmyOGz3BPlyAY JnbDcyMFxtYXJncjcyMFxt YXJndDcyMFxtYXJnYjcyMF qoVQUoHHM0KXkxp873UNX4 YAwhd6sdw0bwrZPuBkk6JT WuQuZrFyyhWZsvv9Qaq6ok YKVelo5rWJT6zIZfkLsjb7 L3sAKtHANfaRMkaeCkCMFn BwB5VCklCC3ysh80WPRjRE I1ho8xbEMkiMesgkMyhSVq UQvtY6FxGIDst298MVIvS3 TvSGAlk0H7zhSaJpZsKCSt xPR1vmV9URLaEYt7gHXlfc Y9fhNirNChS8dfmU36McFj zJYkB3DwgA87SbPojYTnK7 RjqA62KnMsnBIwH3DicN36 MiFjsHAbTIWptIUnCd9gkL ZohRZqo9QdeFJuZOsbU02j e926DVQpqnIpF3shiQKlnu swfZZzeuioBNskumE9FHUk rwAilInzlH9bGkBnFmGvMX itKS8xVTQsL6mltPUgTBEx ZPXnL5coIkJymR3jcHgwKH sxwyBeIZUkC8q7JKmei1Dq IGxvYmUgbWFzcywgbWVkaW WywAqaLLijPWZdme5bOEPg jEqsQWErc2LzABanO9Ijc6 NhbiBvZiBjaGVzdFxwYXJ9 SPECIMEN SOURCE (test s5vnnGFeRNJzuUMyXdUhAD code = 3377) UsWAHew0doDNUfxOVaXqEm MzNcZnRuYmpcdWMxXGRlZm Vod6qmc659dBQmj6gqJISv SyL7hVIgPSUgnSYlF326e4 fyc3rjdiOfiRP0KRTuDBK0 IBeshxQefwL5HHihnCMcIy G9ZNikkhStVEkhroLrsdAx Iza9PIXmT567CYX7pRytz8 wxLGN7LTTlPWDkZoRhVp2n uWQvE336QZBkBZWKWIHmtK j1MDCbpjPhfuBcaMLUu138 C841c9nrFRCrtpGvwLyGtd asi3uiJ147AFLboNVmszDv ZeXzROWimNNyeUW5WJMbMH 7dmztnNfKxAY3lgvlcBwFt TJ3ebql7XpHvEQ6brqjeAq EoKCsyWLUapwmzEHSeo8Qr ixtoCI1wQ9Rix6J8mS6nvL FhXVPceIZxBeGbOROzwn8j oEWdKGodf2AnRER8maT1pX ViwFHkBDAgYY00Zvuhg7Zz ClzvOBY3EZRewjBqq6Tgr5 wmPyKiwuTzR7tjP1PqTVGf TTSfCOHdTbWxxiVgm1Ebn3 EgnQSelZx2f1odNOTkSUTj iAlpq9vcOZL2GMUyC9C9wU Yhy2vnQDxnBHHdrOR5jxgs JAbtQFVtrrM2kcsjCHueRF OnmDP2xfwfIBtlEQZfGpE4 bkxyGRxxFPGjLOY6PYxqa7 14XWW7XAqwGfgoPWwyZFVg bmNvbnRccGduZGVjXHBsYW luXHBsYWluXGYwXGZzMjRc kPfloRkmxI1hIvXmIqUnAJ flDE3lLNGeQ8kxlMRdSTPf UNJhL0xhFrTwhP7rhTdfAC zshsOqHMjLEAQCSS0TAACu IFNVQkNBUklOQUwsIFNUQV YID95bPsWJIbFlrCJhoC== GROSS DESCRIPTION (test z6javAPvDZAcwERzDaHmNM code = 3366) CrKLTml8ucVPSfrAPbJuBo MzNcZnRuYmpcdWMxXGRlZm Zby9ejn644aCIju6juREOg EcC6mSHqZBKlcDCgA648TZ GmSSuzt8dpx2RjKMQlgPZw y0R8BVUZrjsmaBp8cAjvR4 7dt5C3KscgO9elBWFuDZbv ZWPoWQdnzULgXED2XSAdZS S0JTddskFfvdL3MTpzzSPp AbU5IOf3f4twnPdoJNRzNL M2u1hrTMerhoWjND5dvc8s nJx6b8xdezTyJWVbSDNmpL NCCZCtZ5CkyAfcYc3emOn6 hUjoMzrdKLQ0Shj5HI4uan 36wyp1eElzFZSoczblDmZ9 BAuhLNJfgslpNMp4RAmdEY JnbDcyMFxtYXJncjcyMFxt YXJndDcyMFxtYXJnYjcyMF avJHFlYBE3XCgul525ANN0 IMuzj5bun9miqGMwRew7DW IlUnQyOmucMDfph2Iwd1qa RSLpys3eEGR6lTHitBgfr7 J8tABvGJUvcSIsnbPoWODn NdF6OOzgBR4hfw08RQPgXP B5dk6ywYLbsRuocjDpkQCd SNxtB8HlZOCjx286FGYuR2 VlFCOdd6D9ztVmBeUqPCKz cQZ5qaM9OEYkKGy4bGYihv Z1yuXlvANsN4udiU47FtTr yTDnX6ZnmJ16VpJsqBEtZ7 BsmQ39NkJmmTYiY9XjnD67 NmCloIUiPLYerJHnHc8ffJ JerNEbt9TncBDqVFdiT58b x337KSXfgmCcI3emxHKdra xwbGFpblxmMFxmczIyXHFs XHBsYWluXGYwXGZzMjJccG aazO2jKmMzPcAjKyUHNJRr aXZlZCAzNSBtbCBccGxhaW 5cZjFcZnMyMiBjeXRvcmlj dZMgSEEzZyf6ULQzphPab9 FtcGxlOyBwcmVwYXJlZCBj UIktCVDfq3ErAKCyCHPras RkKzMewTPwv3OpltPadWqk rO0gMkGgHjCgYmupPBGrG1 9sbGVjdGVkOiAwNjAzMjBc vOIvGUCmU4XurlDiLaPmCu AzMjBccGFyfQ== MICROSCOPIC DESCRIPTION i1opfPHnRWLssKBiKvCkMG (test code = 3371) GuPUJzz1zhYPLzvMWgHaGd MzNcZnRuYmpcdWMxXGRlZm Out4fmc928gDWny5ngOYEx QnJ3bFVnBPNqhHWxS356m0 kot5scyaXyoXD4VHIhEIL9 ANrrukNsmqI9KGpxtPZkXh V5CFncugRoCTipmvVquqEr Gde6UCIkX094CXF8kDqmr9 seWAB9CKZkGTYmQaWhLm6q fBXyS726HCYxFJHQAUUvoS j3CKFhvsDgkvSkiSJYo955 G777r6fpDFZzpfOyrJgSes krb7xrV835WBIiyGLrrcJk NyBzCBCvxBFtqNU3UWLpLP 2zwlulVcBfLS7evnzhMzTr LE4dhns0PiOuHR2yzlbxMl CqWTbuYKIubtevDOYxo6Cc nrzfFL9zQ1Onv4C4hX5buR HyIOByaVOuHoZwLXCjrt1x wLLyTEetf8TkOXH2biA6jJ CfxHFkCMUfNO57Gxxho9He EgraNLQ7ZQSgevDvg9Fab7 olRnFkvkHfQ2fvI7EbEGSd ARXiUFJuPvQmogUsx7Uro3 QzsDFkfKl2j4kaJLXlROGr bKlwg3ksCPW4PQIvE7L5sF Uzw9mzCTsnDLZivPR4xvzq VJchRWVsbmQ4ecwhZAxfVE OnzBY5vyihKRznHLFdTxE0 htehNVdmPEBjGTW7UQzex6 99MGU3CDzrZryzRCnuFXDl bmNvbnRccGduZGVjXHBsYW luXHBsYWluXGYwXGZzMjRc wNherVdkpV2bNpIeQtZuDI cpIP7nWBTaN3cjgYJwRIWz JCLqF4goChVprM8zkYjjEC gxfbVyLNRdhdYubk3iZW6w cGFyfQ== SPECIAL STUDIES (test b4yvzVReKANor4ivUQNvlF code = 3376) FuZzEwMzNcZnRuYmpcdWMx VWtjgzAlCSiwl2RlO3YvOj AwMFxhbnNpXGRlZmxhbmcx QQJvUTX8clEtHPZwPJecXR BeTWtkJn8qxHHipFgqOoPi ADWft3yqveGSssapxZc8h7 xcNUJhRjW7oGKuOGcxC6wo xaFdhKYcX1SpyTWtbOl0s9 leEzFvYiZ4vLAmXYvzR1dx xfMbvJYbXTClGIn0hZ55QZ JpkK3epWIuBKigaaIpKxW1 IEyjJBEbIvL7QCFvnVPaUZ LsL9qpWVGgOCuoHZQgIKfc bPTeFZG1tDzmw7V8sWPruA MshVwyIvDzGdGrOvTQj4Al LEv5qOzuI8KvXIVwBeV2vO QgUGFyYWdyYXBoIEZvbnQ7 hLpeuvMyt82hzFEeIZHxHQ DwKdYzkTmuOXFqWPBWk3Qy cGclBHX5xAm5oGobAkzwZU L4Tyq1NO9odu60zym4bUud AAMeilfeXzE5JBeeIVLsig sxFPs7YGmsZLPwsPT3AFLa fCXeT3BiMZXuXW9bpwi6SZ V7YXwoPCStTpG1NBVwrCKc NYVdbLlnQImpt882RCQ5Kq LdIP1fG0Nvu0O0xB7zjOOp ETNhnYBeDkTbOVYxki8odX VtOPzvm8ZxHXJ7mcI2kUHl qUKdVXFvMM26Qlnfj6SoGl ppl5ZuU95toUE3ZYmty1me GB2aPoY8prLhLBivt7bpuZ 5eBbD7BGjoKQ3pCS2jMSPm tV7qrmevFICiNyMotfhfER GjoJxnenYrXv0klBqkYXI4 BYanL3enwF2bOzE3WMmjG9 ozoG9lAGd8LJunpKL6KKVd zD1uFH8enxmca7hmQDnmPS fxEODnjyJ4lhC8LXEswADe O4TfmY7bXAPmMB0zcwcwq4 ciEVC9AHtbCHUpDIT1HaBd BFZeo7Cjoln1RvIrq6HjwR AsKIohG00ja545QPXvnkWf W5hzvIDuxgvqrHHypbkkDC jdnqE8TPOlRVRnGArgMPLq XGZzMjJcbGFuZzEwMzNcaG ljaFxmMVxkYmNoXGYxXGxv I2bzBkBfX8MmTLIfExIsNW znAEsbrILbeQTrsDB8pF3v OX0sZBNzgZCnZ6XyUDJlin UkwYRsSYY5aTRjtHMtSN5y FWavcHLzd1amj5CwF9epoB scjUX6UL1dGJFiYGRoAStx y2QaqS1eJeybaETxchroKC xmczIyXGxhbmcxMDMzXGhp L9ojGgJvHFLhrFozRYwsr5 NoXGYxXGNmMlxmczIyXGx0 cmNoXHBhclxwYXJccGxhaW 0uRmKwXqYeFxxdCL7dDTNx P8oecHOtDBDpWQUnE4tyFf TjcJ0duPocAPvoIcQoLzRx ZkFTs057fn8jPCBvgUJsvq NKdNUnoO0fAIsfKEuwNKjh vXPuAUofa7uvKHMdw8x6mZ NpQHHxnvUqc7zcSHglotWx WTAiqAKmqYFiVKWvj36eZQ qvuYehhTemFSPro5RzwHmy q7ObQlCzJEddl0YfN14kmF JvbCBzbGlkZXMgcnVuIGFs d14oa4zbAOLmNcA6vVKixQ L8yHMstETxv0QvdIxmLJPk c9qnYFOzvj1nngukqLCqr7 UnwO7eutfqWFjhtINdroLa LJDfm3w3bNJqPVLwYLLvBD twnBp2KEQce859xk6fawB3 zWFvRPL0YAwnRPWbFUHddb UgZXZhbHVhdGVkXHBsYWlu XGYxXGZzMjJcbGFuZzEwMz NcaGljaFxmMVxkYmNoXGYx MKoqI6soXgHkE7XcYGKyGo MauGNvW0nacWIcUCEpVCcn XGYxXGZzMjJcbGFuZzEwMz NcaGljaFxmMVxkYmNoXGYx SCytR7thGzBfY8TfFXGpEe IgIFxwbGFpblxmMVxmczIy IPnkmjldPCExJMafI3kwZp NpBWBtwTyuTYghb2GvAMNv WROtTopctcUtXJn5xvSnRV BhclxwbGFpblxmMVxmczIy JEvbmtslPLWsVUwnW1cvQk ZuAHJmiCajQSvbb0RlSWBr XGNmMlxmczIyIEltbXVub2 zla1WcY4wpxPntpSV1KBBv O7miwMBqlTM7MBK5zK8cDH hbcpVmEXGcb0LhVIWtNMZi WiX8nL1aXMI6EkWQnYtyPJ BsYWluXGYxXGZzMjJcbGFu ZzEwMzNcaGljaFxmMVxkYm KdCAQnUQmaW9ooWjOeU4Kc JNBxKrZqkNqpHRtyADz9Uq xwbGFpblxmMVxmczIyXGxh sjfzRBIvEMahA2dnOpLlVY OqfTesRNjgk1SjXNUdRSSy MlxmczIyIHMgTWVkaWNhbC RKIB30XBSvKJVunUktlS8r wZXUOCPtppW2p6P3CCfcHS RhHXh6QNwvumBfFQPicZ7t IWSvKM9kBNj5vyPrBKYmz4 IbEC3zODPevSTiZOJ0RKYt c5JpL2Hgv6QwOWBqOUYuwd 0eneTdQwRIjWQiWWYfgc61 VIYvXJ7oE9uhBKWeQYPbih IrkOSsu4MoNNMrlKX6aHOe GK7BJdTJk41dWMYqPDATfe DjENZbeFbmuCN1ztS9rM9z LiBUaGUgRkRBIGhhcyBkZX Twae6nbsDwRYOfJCSvt3Sv hAEndHHoykUqK1Rgq4AvUX Hsrs16ZZtqbBRxyz70TN0o U1Wsh8TczE5aUAmdSEAfx2 VmyPExkAHpNZMjl3RwF4ez zrznBLabcSIyfC6iFSKdWT m4YCYzf1GpDKSda9ZqNnCh nhOgYDJiHLWcUXQfxA99JE Z9dUicjListcTdPJ0qYODj byOuDLRiUISkoV4bAVszxo GnNUCpmkS2q3A9LZqwWMPe vjDlNvfzNIQ8noTaaeC4uI OpF9sxgdpnQVjkIJLpt3Gf dP0gzZKQwTApk3LoiRTwmZ WCiUEbFF5nahOqHL7kQZK2 ODggKENMSUEtODgpIGFzIH J9TGtzXvamQUZ1faKmJRRg i5BtJBtbA0gfS52teRseiB y6fGWjwHhtiWAhtNBeFDLi snE6e2I0WDVjz9MhveteHR BsYWluXGYyXGZzMjJcbGFu ZzEwMzNcaGljaFxmMlxkYm DpHNLuPJbeX5xiBxRfAiFh HkgwGNR3kF== Gross assessment was [facility] performed at ([facility], = 2777) Department of Pathology, [address] [place] [address], Technical component was [facility] performed at ([facility], = 3122) Department of Pathology, [address] [place] [address], Professional component [facility] was performed at ([facility], code = 2776) Department of Pathology, [address] [place] [address], [facility]IR[facility] BY [id number] 15:40:00 Medical Cytology Report Case: [id number] Authorizing Provider: Luis Alberto Santiago MD Collected: 11/07/2019 04:11 PM Ordering Location: [place] [address] CCU Received: 11/07/2019 05:12 PM Pathologist: Berenice Eng MD Specimen: Lymph Node, Subcarinal, Station 7 LYMPH NODE, SUBCARINAL, STATION 7, FNA BY CLINICIAN (CYTOSPINS AND CELL BLOCK OF ASPIRATE): - SATISFACTORY FOR EVALUATION - NEGATIVE FOR METASTATIC MALIGNANT CELLS - EVIDENCE OF LYMPH NODE SAMPLING (POLYMORPHOUS LYMPHOID TISSUE PRESENT) Signing Pathologist Direct Phone Line: [phone] signed by Berneice Eng MD on 11/08/2019 at 3:40 PMPlease also see surgical pathology report [id number] and cytopathology reports [id number] and 1350. [id number], [id number] lower lobe mass, mediastinal adenopathy, abnormal CT scan of chestLYMPH NODE, SUBCARINAL, STATION 7 FNAReceived 35 ml cytorich red fixative sample; prepared cell block(A2) and 2 cytospinsCollected: [id number]: [id number].The interpretation of this case included the use of immunohistochemistry or special stains.Control Slides Examined: In-house known positive controls were evaluated along with the test tissue. These control slides run alongside of the patients sample show appropriate staining. Internal positive and negative controls when available are evaluated Immunohistochemistry technical testing was performed at [facility], Pathology Laboratory where it was developed and [...] qualified to perform high complexity clinical laboratory testing.[facility], Department of Pathology, [address] [place] [address], [facility], Department of Path ology, [address] [place] [address], [facility], Department of Pathology, [address] [place] [address], HPBC NEEDLE ASPIRATE BY [id number] 15:39:00Medical Cytology Report Case: [id number] Authorizing Provider: Luis Alberto Santiago MD Collected: 11/07/2019 04:11 PM Ordering Location: [place] [address] CC Received: 11/07/2019 05:12 PM Pathologist: Berenice Eng MD Specimen: Lymph Node, Lower Paratracheal, Left, Station 4L LYMPH NODE, LOWER PARATRACHEAL, LEFT, STATION 4L, FNA BY CLINICIAN (CYTOSPINS AND CELL BLOCK OF ASPIRATE): - SATISFACTORY FOR EVALUATION - NEGATIVE FOR METASTATIC MALIGNANT CELLS - EVIDENCE OF LYMPH NODE SAMPLING (POLYMORPHOUS LYMPHOID TISSUE PRESENT) Signing Pathologist Direct Phone Line: [phone] signed by Berenice Eng MD on 11/08/2019 at 3:39 PMPlease also see surgical pathology report [id number] and cytopathology reports [id number] and 1349. 58102, 74291Vhvms lower lobe mass, mediastinal adenopathy, abnormal CT scan of chestLYMPH NODE, LOWER PARATRACHEAL, LEFT, STATION 4L FNAReceived 36 ml cytorich red fixative sample; prepared cell block(A2) and 2 cytospinsCollected: [id number]: [id number].The interpretation of this case included the use of immunohistochemistry or special stains.Control Slides Examined: In-house known positive controls were evaluated along with the test tissue. These control slides run alongside of the patients sample show appropriate staining. Internal positive and negative controls when available are evaluated Immunohistochemistry technical testing was performed at [facility], Pathology Laboratory where it was developed and [...] asqualified to perform high complexity clinical laboratory testing.[facility], Department of Pathology, [address] [place] [address], [facility], Department of Pathology, [address] [place] [address], [facility], Department of Pathology, [address] [place] [address], CKMHM [id number] 14:00:00 Test Item Value Reference Range Interpretation Comments CULTURE (BEAKER) (test No growth in 5 days code = 1095) BLOOD [id number] 14:00:00 Test Item Value Reference Range Interpretation Comments CULTURE (BEAKER) (test No growth in 5 days code = 1095) POCT-GLUCOSE [id number] 11:28:00 Test Item Value Reference Range Interpretation Comments POC-GLUCOSE METER 197 mg/dL 70-110 H : TESTED A T [facility] 6720 (BEAKER) (test code = [facility] [employer] [facility], 1538) [address]158: Dopster/Techni sophie ID = [id number] for BE NINO BEAULA POCT-GLUCOSE [id number] 07:49:00 Test Item Value Reference Range Interpretation Comments POC-GLUCOSE METER 85 mg/dL 70-110 : TESTED A T [facility] 6720 (BEAKER) (test code = [facility], 1538) 34308: Dopster/Techni sophie ID = [id number] for DEBORAH SANDRA [id number] 03:51:00 Test Item Value Reference Range Interpretation Comments MAGNESIUM (BEAKER) 2.2 mg/dL 1.6-2.6 Specimen slightly (test code = 627) hemolyzed Dopster ID - [id number] 03:51:00 Test Item Value Reference Range Interpretation Comments PHOSPHORUS (BEAKER) 3.6 mg/dL 2.3-4.7 Specimen slightly (test code = 604) hemolyzed Dopster ID - LABASIC METABOLIC [id number] 03:51:00 Test Item Value Reference Range Interpretation [...] S NOT APPLICABLE FOR DIALYSIS PATIEN TS. Dopster ID - LACBC W/PLT COUNT & AUTO [id number] 03:39:00 Test Item Value Reference Range Interpretation [...] (BEAKER) (test code = 2801) Histoplasma antigen, [id number] 22:30:00 Test Item Value Reference Range Interpretation Comments Histoplasma <0.2 ng/mL REFERENCE RANGE : <0.2 Antigen (test ng/mL Histopla sma code = 1679437) galactomanna n is frequently dete ctedin urine from carey ents with disseminatedhis toplas mosis. However, a negative result doesnot exclude a diagnosis of histoplasmosis. Manypatients wi th acute pulmonary disease or chroniccavitary disease do not exhibit antigenuria.Spe cimens from patients w ith other endemicfu ngal infections, suc h as blastomycosis,p aracoc cidioidomycosis , or candidiasis, ma jossie alsobe positive in this assay. Thi s test should be used in conjunction wit h otherdiagnostic s tests, includin g culture, molecularassays , and histology in andria pruitt a final diagnosis . FAIZA (test code = Performing Lab FAIZA) *[facility] [address] [place] [address] Nivia Rodriguez MD [facility] HospitalAspergillus galactomannan [id number] 20:01:00 Test Item Value Reference Range Interpretation Comments Aspergillus Index <0.50 Value (test code = 2645) Aspergillus NOT DETECTED REFERENCE RANGE : Antigen (test code <0.50, NO T = 64862-8) DETECTED A negative result does not exclud e invasiveaspergi llo sis. Follow-up testing may be indicatedfor high-risk patients. FAIZA (test code = Performing Lab FAIZA) *[facility] [address] [place] [address] Nivia Rodriguez MD [facility] HospitalEBUS FNA [id number] 19:01:00 Test Item Value Reference Range Interpretation Comments Cytology (test code = See Separate Report 2629) [facility] Hospital[facility]NA [id number] 19:01:00 Test Item Value Reference Range Interpretation Comments CYTOLOGY RESULT POINTER See Separate Report (BEAKER) (test code = 2629) EBUS FNA [id number] 19:01:00 Test Item Value Reference Range Interpretation Comments CYTOLOGY RESULT POINTER See Separate Report (BEAKER) (test code = 2629) EBUS FNA [id number] 19:01:00 Test Item Value Reference Range Interpretation Comments CYTOLOGY RESULT POINTER See Separate Report (BEAKER) (test code = 2629) Glucose Pleural [id number] 15:16:00 Test Item Value Reference Range Interpretation Comments Glucose, 131 mg/dL Reference rang e Pleural Fluid approximates t hat (test code = found in serum. 2346-5) FAIZA (test code Performing Lab = FAIZA) [facility] [address] [place] [address] Clarissa Zavala MD, PhD, SHELLIE [facility] HospitalLactate Dehydrogenase (LD), Pleural [id number] 15:16:00 Test Item Value Reference Range Interpretation Comments Lactate 102 U/L See Note: Reference Dehydrogenase (LD), Range:TR ANSUDATE Pleural Fluid (test : <113E XUDATE: code = 11308-3) >113 FAIZA (test code = Performing Lab FAIZA) [employer] [employer] [facility] [place] [address] [place] [address] Clarissa Zavala MD, PhD, SHELLIE [facility] Hospitalfungitel2020-06-03 14:44:00 Test Item Value Reference Range Interpretation Comments Scan Result (test code = 6898676) <31 [facility] HospitalMISCELLANEOUS LAB [id number] 14:44:00 Test Item Value Reference Range Interpretation Comments SCAN RESULT (test code = 3230780) <31 [id number] 10:12:00 Test Item Value Reference Range Interpretation Comments MAGNESIUM (BEAKER) (test code = 2.4 mg/dL 1.6-2.6 627) Dopster ID - DONNA MCINTOSH, [id number] 08:53:00 Test Item Value Reference Range Interpretation Comments ABO Grouping (test code = 2588) A Rh Factor (test code = 2589) POS [facility]PRE[facility] METABOL[facility] [id number] 06:03:00 Test Item Value Reference Range Interpretation [...] S NOT APPLICABLE FOR DIALYSIS PATIEN TS. Dopster ID - PIAYA LCBC W/PLT COUNT & AUTO [id number] 05:59:00 Test Item Value Reference Range Interpretation [...] 0-1 PERCENT (BEAKER) (test code = 2801) [id number] 05:52:00 Test Item Value Reference Range Interpretation Comments PARTIAL THROMBOPLASTIN TIME 35.2 seconds 22.5-36.0 (BEAKER) (test code = 760) PROTHROMBIN TIME/[id number] 05:51:00 Test Item Value Reference Range Interpretation [...] 450 K/CU MM MPV (test code = 55215-6) 9.6 fL 9.4-12.4 nRBC (test code = 413) 0 0- 0 /100 WBC Lab Interpretation (test code = Abnormal 23716-6) [facility] ONLY)2019-11-07 05:38:00 Test Item Value Reference [...] = 413) RAD, CHEST, 1 VIEW, NON [id number] 17:50:00Reason for exam:->PICCShould this be performed at [...] MDReport Verified Date/Time: 11/06/2019 17:50:04 Reading Location: [address] Radiology Reading Room CT, CHEST, WITHOUT [id number] 17:38:00FINAL REPORT CT of the Chest dated [...] MDReport Verified Date/Time: 11/06/2019 17:38:38 Reading Location: [facility] B1 C013Y CT Body Reading Room CT chest [...] MDReport Verified Date/Time: 11/06/2019 17:38:38 Reading Location: [facility] B1 C013Y CT Body Reading Room Electronically signed by: MAYELA GREEN M.D. on11/06/2019 05:38 [facility] [id number] 17:27:00 Test Item Value Reference Range Interpretation Comments POC-GLUCOSE METER 109 mg/dL 70-110 : TESTED A T [facility] [address] (FOSTER) (test code = [place], 1538) [address]: Dopster/Techni sophie ID = [id number] for DEBORAH HENRIQUEZ Pulmonary Funct Lab [id number] 14:45:00Tosin Chavez, ELENA, CHIEF GUARD 11/06/2019 3:21 [facility] PFT CHARTING REPORT Infection Control/Hand Hygiene procedures followed throughout the encounter with patient: YesPatient Identification Method: Patient name verified on armband, and Medical record on armband, Is the order complete?: Yes Account ID#: [id number] Name: Arthur Nunez Birthdate: [birth year] Age: 89 [...] patient released from the lab without adverse outcome.[facility]2020-06-02 13:58:00 Test Item Value Reference Range Interpretation Comments MAGNESIUM (BEAKER) (test code = 2.3 mg/dL 1.6-2.6 627) Dopster ID - PIAYA LBASIC METABOLIC [id number] 13:58:00 Test Item Value Reference Range Interpretation [...] S NOT APPLICABLE FOR DIALYSIS PATIEN TS. Dopster ID - PIAYA LPOCT-GLUCOSE [id number] 11:51:00 Test Item Value Reference Range Interpretation Comments POC-GLUCOSE METER 159 mg/dL 70-110 H : Notified RN/MD: (FOSTER) (test code = TESTED AT [facility] [address] 5848) [facility], [address]: Dopster/Techni sophie ID = [id number] for DAVID ONEILL DEBORAH Carotid doppler [id number] 10:23:48Ejection FractionSLEH ECHO HEARTLAB MKCKESSON CPACSRight Impression1. [...] of Study 11/05/2019 Age 89 Visit Number [id number] Gender Male Accession Number [id number] Date of 1930 Referring Gabriel Streeter, Room Number 6210 Physician Extension Service Specialist In Charge Philipp Martinez Interpreting Reshma Bal [facility] Physician ProcedureType of Study: Cerebral: Carotid, CAROTID [...] + + + - Additional Measurements:ICAPSV/CCAPSV 0.77.ICAEDV/CCAEDV 1.1.[facility] HospitalBody fluid culture + gram [id number] 08:41:00 Test Item Value Reference Range Interpretation Comments Result (test code = 6463-4) No growth Gram Stain Result (test No organisms seen code = 1123) [facility] FLUID CULTURE + GRAM [id number] 08:41:00 Test Item Value Reference Range Interpretation Comments CULTURE (BEAKER) (test code No growth = 1095) GRAM STAIN RESULT (BEAKER) 4+ WBCs (test code = 1123) GRAM STAIN RESULT (BEAKER) No organisms seen (test code = 78259) POCT-GLUCOSE [id number] 07:41:00 Test Item Value Reference Range Interpretation Comments POC-GLUCOSE METER 104 mg/dL 70-110 : TESTED A T [facility] [address] (BEAKER) (test code = [place], 1538) [address]: Dopster/Techni sophie ID = [id number] for BE DAVID ONEILLAUESEQUIEL [id number] 04:43:00 Test Item Value Reference Range Interpretation Comments MAGNESIUM (BEAKER) (test code = 2.3 mg/dL 1.6-2.6 627) Dopster ID - PIAYA LBASIC METABOLIC [id number] 04:43:00 Test Item Value Reference Range Interpretation [...] S NOT APPLICABLE FOR DIALYSIS PATIEN TS. Dopster ID - PIAYA LRAD, CHEST, 1 VIEW, NON [id number] 04:25:00Reason for exam:->pleural effusion. s/p thoraShould this [...] Billseport Verified Date/Time: 11/06/2019 04:25:16 Vancomycin level, [id number] 04:14:00 Test Item Value Reference Range Interpretation Comments Vancomycin Tr (test code = 23.1 ug/mL 10-20 H 4092-3) FAIZA (test code = FAIZA) Dopster ID - PIAYA L Lab Interpretation (test Abnormal code = 44479-8) [facility] HospitalVANCOMYCIN LEVEL, [id number] 04:14:00 Test Item Value Reference Range Interpretation Comments VANCOMYCIN TROUGH (BEAKER) (test 23.1 ug/mL 10.0-20.0 H code = 522) Dopster ID - PIAYA LCBC (HEMOGRAM ONLY)2019-11-06 03:59:00 Test Item Value [...] (test code = 413) CT, BRAIN, WITHOUT [id number] 23:24:00FINAL REPORT EXAM: CT head without contrast. [...] evaluation as clinically warranted. Signed: Mario Bills Verified Date/Time: 11/05/2019 23:24:44 CT brain without IV [id number] 23:24:00Interface, External Ris In - 11/05/2019 11:26 PM CDTFINAL REPORT EXAM: CT head without contrast. CLINICAL HISTORY: Abnormal auditory perceptions. COMPARISON: None. TECHNIQUE: CTimages of the head were obtained without intravenous contrast. This exam was performed according [facility] departmental dose optimization program which includes automated [...] evaluation as clinically warranted. Signed: Mario Bills Verified Date/Time: 11/05/2019 23:24:44 [facility]PO[facility] [id number] 18:35:00 Test Item Value Reference Range Interpretation Comments POC-GLUCOSE METER 103 mg/dL 70-110 : TESTED A T [facility] [address] (BEAKER) (test code = CRISTA Estevez [facility], 1538) [address]: Dopster/Techni sophie ID = [id number] for MATT NO [id number] 13:42:00Medical Cytology Report Case: [id number] Authorizing Provider: Gabriel Streeter MD Collected: 11/03/2019 04:44 PM Ordering Location: [place] [address] CCU Received: 11/05/2019 09:25 AM Pathologist: Lala Jimenez MD Specimen: Pl eural, Right PLEURAL, RIGHT, FLUID (CYTOSPINS): - NEGATIVE FOR MALIGNANCY - Reactive mesothelial cells present in a background of marked acute inflammation Signing Pathologist Direct Phone Line: [phone] signed by Lala Jimenez MD on 11/05/2019 at 1:42 [id number] pleural effusion; HTN, CVA, and aortic stenosis transferred from OSH with lower extremity swelling, weakness, and dyspnea with denial of fevers, cough, dysuria, or diarrhea. Hospital course identified depressed LV function consistent with CHF exacerbationPLEURAL, RIGHT, FLUIDReceived 1300 ml yellow fluid; prepared 4 cytospinsCollected: [id number]: [id number]sity of California, [facility], Department of Pathology, [address] [place] [address], [facility], [facility] ofPathology, [address] [place] [address], PiwjgqLancaster Community Hospital,Department of Pathology, [address] [place] [address] 523[address], KTYI [id number] 12:51:00 Test Item Value Reference Range Interpretation Comments Result (test code = 6463-4) No MRSA isolated [facility] HospitalMRSA [id number] 12:51:00 Test Item Value Reference Range Interpretation Comments CULTURE (BEAKER) (test code No MRSA isolated = 1095) [id number] 12:25:00 Test Item Value Reference Range Interpretation Comments MAGNESIUM (BEAKER) 2.5 mg/dL 1.6-2.6 Specimen slightly (test code = 627) hemolyzed Dopster ID - NTPBASIC METABOLIC [id number] 12:25:00 Test Item Value Reference Range Interpretation [...] S NOT APPLICABLE FOR DIALYSIS PATIEN TS. Dopster ID - NTPPOCT-GLUCOSE [id number] 11:48:00 Test Item Value Reference Range Interpretation Comments POC-GLUCOSE METER 108 mg/dL 70-110 : TESTED A T [facility] 6720 (BEAKER) (test code = CRISTA Estevez [facility], 1538) 80878: Dopster/Techni sophie ID = [id number] for AG UILARCHARLESNICK CT, CTA [id number] 11:32:00Addendum BeginsREPORT STATUS:A I agree with the [...] Verified Date/Time: 11/05/2019 11 :32:40 Reading Location: [address] Radiology Reading RoomAddendum EndsFINAL REPORT CT [...] measures 7.6 and 8.7 mm, respectively with ffhk-sa-qpjguyxo tortuosity and mild calcific atherosclerosis present. The [...] dictated regarding the non-vascular findings by the Eap Counselor Radiologist. Signed: Gaudencio Valencia MDReport Verified Date/Time: 11/04/2019 09:18:32Reading Location: [place] [address] [address] Reading Room , CTA, [id number] 11:32:00Addendum BeginsREPORT STATUS:A I agree with the [...] Verified Date/Time: 11/05/2019 11 :32:40 Reading Location: [address] Radiology Reading RoomAddendum EndsFINAL REPORT CT [...] measures 7.6 and 8.7 mm, respectively with atlx-yo-pglkysro tortuosity and mild calcific atherosclerosis present. The [...] dictated regarding the non-vascular findings by the Eap Counselor Radiologist. Signed: Gaudencio Valenciaeproberot carlos Verified Date/Time: 11/04/2019 09:18:32Reading Location: [place] [address] [address] Reading Room -GLUCOSE [id number] 07:28:00 Test Item Value Reference Range Interpretation Comments POC-GLUCOSE METER 109 mg/dL 70-110 : TESTED A T [facility] 6720 (Frenzoo) (test code = CRISTA Estevez [facility], 1538) 61647: Dopster/Techni sophie ID = [id number] for NICK LEON [id number] 06:09:00 Test Item Value Reference Range Interpretation Comments MAGNESIUM (BEAKER) 2.2 mg/dL 1.6-2.6 Specimen slightly (test code = 627) hemolyzed Dopster ID - PEACE LBASIC METABOLIC [id number] 06:09:00 Test Item Value Reference Range Interpretation [...] S NOT APPLICABLE FOR DIALYSIS PATIEN TS. Dopster ID - PIAYA LPT/[id number] 04:54:00 Test Item Value Reference Range Interpretation [...] WBC 0-0 (BEAKER) (test code = 413) [id number] 21:19:00 Test Item Value Reference Range Interpretation Comments MAGNESIUM (BEAKER) 2.2 mg/dL 1.6-2.6 Specimen slightly (test code = 627) hemolyzed Dopster ID - PIAYA LBASIC METABOLIC [id number] 21:19:00 Test Item Value Reference Range Interpretation [...] S NOT APPLICABLE FOR DIALYSIS PATIEN TS. Dopster ID - PEACE LPOCT-GLUCOSE [id number] 17:09:00 Test Item Value Reference Range Interpretation Comments POC-GLUCOSE METER 128 mg/dL 70-110 H : TESTED A T [facility] 6720 (BEAKER) (test code = CRISTA [place], 1538) 91225: Dopster/Techni sophie ID = [id number] for BE LL, BEAULA ECG 12 [id number] 17:03:34Interface, External Ris In - 11/04/2019 5:03 PM CDTVentricular Rate 93 BPMAtrial Rate 93 BPMP-R Interval 158 msQRS Duration 148 msQ-T Interval 424 msQTC Calculation(Bazett) 527 msP [place] 54 degreesR [place] 2 degreesT [place] 153 degreesSinus rhythm with Premature supraventricular complexesLeft bundle branch blockAbnormal ECGNo previous ECGs availableConfirmed by MD Anderson Roberto ([id number]) on 11/04/2019 5:03:32 [facility] CampusMAGNESIUM2020-05-31 14:15:00 Test Item Value Reference Range Interpretation Comments MAGNESIUM (BEAKER) 2.5 mg/dL 1.6-2.6 Specimen slightly (test code = 627) hemolyzed Dopster ID - TANNERAYA LBASIC METABOLIC [id number] 14:15:00 Test Item Value Reference Range Interpretation [...] S NOT APPLICABLE FOR DIALYSIS PATIEN TS. Dopster ID - PIAYA LPOCT-GLUCOSE [id number] 12:09:00 Test Item Value Reference Range Interpretation Comments POC-GLUCOSE METER 160 mg/dL 70-110 H : TESTED A T [facility] 6720 (BEAKER) (test code = CRISTA [place], 1538) 52053: Dopster/Techni sophie ID = [id number] for BE LL, BEAULA CTA abdomen & [id number] 09:18:00Interface, External Ris In - 11/05/2019 11:34 [...] MDReport Verified Date/Time: 11/05/2019 11:32:40 Reading Location: [address] RadiologyReading RoomAddendum EndsFINAL REPORT CT angiography [...] measures 7.6 and 8.7 mm, respectively with msfu-rn-pyqngced tortuosity and mild calcific atherosclerosis present. The [...] dictated regarding the non-vascular findings by the Eap Counselor Radiologist. Signed: Gaudencio Valencia MDReport Verified Date/Time: 11/04/2019 09:18:32 Reading Location: [place] [address] [address] Reading Room [facility] CenterCT[facility] [id number] 09:18:00Interface, External Ris In - 11/05/2019 11:34 [...] MDReport Verified Date/Time: 11/05/2019 11:32:40 Reading Location: [address] RadiologyReading RoomAddendum EndsFINAL REPORT CT angiography [...] measures 7.6 and 8.7 mm, respectively with slxr-su-mqhuvwkn tortuosity and mild calcific atherosclerosis present. The [...] dictated regarding the non-vascular findings by the Eap Counselor Radiologist. Signed: Gaudencio Valencia Verified Date/Time: 11/04/2019 09:18:32 Reading Location: [place] [address] [address] Reading Room [facility] CenterPO[facility] [id number] 07:42:00 Test Item Value Reference Range Interpretation Comments POC-GLUCOSE METER 106 mg/dL 70-110 : TESTED A T [facility] 6720 (DAVIDGUANAKO) (test code = ARIELADAVIDE [place], 1538) 973[address]: Dopster/Techni sophie ID = [id number] for BE LL, BEAULA RAD, CHEST, 1 VIEW, NON [id number] 04:25:00Reason for exam:->post right thoracentesisShould this be [...] than left.There is no pneumothorax. Signed: Mario Billseport Verified Date/Time: 11/04/2019 04:25:22 [id number] 03:17:00 Test Item Value Reference Range Interpretation Comments MAGNESIUM (BEAKER) 1.9 mg/dL 1.6-2.6 Specimen slightly (test code = 627) hemolyzed Dopster ID - PIAYA LBASIC METABOLIC [id number] 03:17:00 Test Item Value Reference Range Interpretation [...] S NOT APPLICABLE FOR DIALYSIS PATIEN TS. Dopster ID - PIAYA LCBC (HEMOGRAM ONLY)2019-11-04 02:51:00 [...] 0-0 (BEAKER) (test code = 413) POCT-GLUCOSE [id number] 22:36:00 Test Item Value Reference Range Interpretation Comments POC-GLUCOSE METER 148 mg/dL 70-110 H : TESTED A T [facility] 6720 (BEAKER) (test code = CRISTA [place], 1538) 96612: Dopster/Techni sophie ID = [id number] for MADELINE MAYLIN, MCKENNA 2D Echo W/Doppler(CW/PW/Color)2019-11-03 19:24:55Ejection FractionSLEH ECHO HEARTLAB MKCKESSON CPACSInterface, External Ris In - 11/03/2019 7:25 PM C DTTransthoracic Echocardiography Report (TTE) Demographics Patient Name ARTHUR NUNEZ Date of Study 11/02/2019 Gender Male Visit Number [id number] Race Unknown Room Number 6210 Number Date of 1930 Referring Physician Gabriel Streeter MD Age 89 year(s) Extension Service Specialist In Charge Jose Ramonaneta Salas Fulfillment Associate Caprice Lorenz Interpreting Gabriel Streeter MD Physician Fellow Zeonn Gomez MD Procedure Type of Study TTE [...] TR Velocity: 2.97 m/s TR Gradient: 35.2 mmHgUSC Verdugo Hills HospitalProtein, Total, Pleural [id number] 19:17:00 Test Item Value Reference Range Interpretation Comments PROTEIN, TOTAL, PLEURAL FLUID (test 2.4 g/dL code = 2882-9) [facility] HospitalPROTEIN, TOTAL, PLEURAL [id number] 19:17:00 Test Item Value Reference Range Interpretation Comments PROTEIN, TOTAL, PLEURAL FLUID 2.4 g/dL (BEAKER) (test code = 4007407) U/S, [id number] 17:09:00Laterality?->RightReason for exam:- >effusionLabs to be Ordered:->Body Fluid Culture (w/GramStain, C\\T\\S)Labs to be Ordered:->CytologyLabs to be Ordered:->Glucose+LDH+ProteinLabs to be Ordered:->Fungal CultureFINAL REPORT PROCEDURE: Ultrasound-guided thoracentesis INDICATION: effusion.DESCRIPTION: After obtaining informed written consent, ultrasound scan showed pleural effusion on the right. The overlying skin was prepped and draped in the usual, sterile fashion and local 2% lidocaine anesthesia was administered. A 4 Citizen Of [place] catheter was advanced into the pleural cavity and 1500 mL of clear yellow fluid was removed. The catheter was removed without immediate complication. Samples were sent for analysis. IMPRESSION: Uncomplicated ultrasound-guided right thoracentesis with 1500 mL of fluid removed. Signed: Russ Gilbert MDReport Verified Date/Time: 11/03/2019 17:09:49 Reading Location: [address] Body Reading Room RAD, CHEST, 1 VIEW, NON [id number] 16:47:00Reason for exam:->s/p right thoracestesisShould this be [...] MDReport Verified Date/Time: 11/03/2019 16:47:48 Reading Location: [address] Reading Room Legionella antigen, [id number] 13:44:00 Test Item Value Reference Range Interpretation Comments Legionella Urine Negative - see Negative for L. Antigen (test code comment pneumophi la = 53700-7) serogroup 1 ant igen, suggesting no r ecent or current infe ction with this serog roup. Legionellosis c annot be ruled out si nce other serogroup s and species may cau se disease. [facility] Campustrep pneumoniae [id number] 13:44:00 Test Item Value Reference Range Interpretation Comments Strep pneumoniae Presumptive negative Presumptive Antigen (test code = for pneumococcal negative for 00565-4) pneumonia - see pneumococcal comment pneumonia - see comment, Presumptive negative for pneumococcal meningitis FAIZA (test code = FAIZA) Presumptive negative for pneumococcal pneumonia, suggesting no current or recent pneumococcal infection. Infection due to S. pneumoniae cannot be ruled out since the antigen present in the sample may be below the detection limit of the test. Lab Interpretation Normal (test code = 69038-8) [facility], Memorial CampusTREP PNEUMONIAE [id number] 13:44:00 Test Item Value Reference Range Interpretation [...] the detection limit of the test.LEGIONELLA ANTIGEN, [id number] 13:44:00 Test Item Value Reference Range Interpretation Comments L. PNEUMOPHILA Negative - see Negative fo r L. SEROGP 1 UR AG comment pneumophila (FOSTER) (test code serogrou p 1 antigen, = 1156) suggesting no r ecent or current infe ction with this serog roup. Legionellosis c annot be ruled out si nce other serogroup s and species may cau se disease. Hemoglobin [id number] 12:43:00 Test Item Value Reference Range Interpretation Comments Hemoglobin A1C (test code = 4548-4) 5.4 % 4.3-6.1 Lab Interpretation (test code = Normal 32201-3) [facility] HospitalHEMOGLOBIN [id number] 12:43:00 Test Item Value Reference Range Interpretation Comments HEMOGLOBIN A1C (FOSTER) (test code = 5.4 % 4.3-6.1 368) Venous doppler legs [id number] 11:15:27Ejection FractionSLEH ECHO HEARTLAB MKCKESSON CPACSRight Impression1. [...] of Study 11/03/2019 Age 89 Visit Number [id number] Gender Male Accession Number [id number] Date of 1930 Referring Ciara Abraham Room Number 6210 Physician MD [place] Extension Service Specialist In Charge Eloise Escobar [facility] Interpreting Physician DHEERAJ Russo ProcedureType [...] in cm/s ; Diameters are measured in [facility] POCT-GLUCOSE [id number] 10:45:00 Test Item Value Reference Range Interpretation Comments POC-GLUCOSE METER 108 mg/dL 70-110 : TESTED A T [facility] 6720 (DAVIDAKER) (test code = ARIELADAVIDE Estevez [facility], 1538) 71376: Dopster/Techni sophie ID = [id number] for GARCIA FFAR, JANY T4, [id number] 10:39:00 Test Item Value Reference Range Interpretation Comments Free T4 (test code = 3024-7) 0.71 ng/dL 0.7-1.48 FAIZA (test code = FAIZA) Dopster ID - LM Lab Interpretation (test Normal code = 04948-3) [facility] HospitalT4, [id number] 10:39:00 Test Item Value Reference Range Interpretation Comments FREE T4 (BEAKER) (test code = 655) 0.71 ng/dL 0.70-1.48 Dopster ID - LMTSH/Free T4 If [id number] 09:49:00 Test Item Value Reference Range Interpretation Comments TSH (test code = 41647-3) 0.325 0.350- 4.940 uIU/mL L FAIZA (test code = FAIZA) Dopster ID - LM Lab Interpretation (test Abnormal code = 09786-9) [facility] HospitalCortisol2020-05-30 09:49:00 Test Item Value Reference Range Interpretation Comments Cortisol, Total (test code 21.3 ug/dL 3.7-19.4 H = 2755) FAIZA (test code = FAIZA) Dopster ID - ALYSE W Lab Interpretation (test Abnormal code = 58556-4) [facility] HospitalCORTISOL2020-05-30 09:49:00 Test Item Value Reference Range Interpretation Comments CORTISOL, TOTAL (BEAKER) (test 21.3 ug/dL 3.7-19.4 H code = 2755) Dopster ID - ALYSE WTSH/FREE T4 IF [id number] 09:49:00 Test Item Value Reference Range Interpretation Comments THYROID STIMULATING HORMONE 0.325 uIU/mL 0.350-4.940 L (BEAKER) (test code = 772) Dopster ID - QCLmrbmdraxujjw5358-92-29 09:44:00 Test Item Value Reference Range Interpretation Comments Procalcitonin (test code = 1.00 ng/mL <0.05 H 68510-1) FAIZA (test code = FAIZA) SEPSIS RISK (ng/mL)Low: 0.05-0.50Intermedi ate: 0.51-2.00High: >=2.01 Lab Interpretation (test Abnormal code = 92357-3) [facility] HospitalPROCALCITONIN2020-05-30 09:44:00 Test Item Value Reference Range Interpretation Comments PROCALCITONIN (BEAKER) (test code 1.00 ng/mL <0.05 H = 3036) SEPSIS RISK (ng/mL)Low: 0.05-0.50Intermediate: 0.51-2.00High: >=2.01BASIC METABOLIC [id number] 09:02:00 Test Item Value Reference Range Interpretation [...] S NOT APPLICABLE FOR DIALYSIS PATIEN TS. Dopster ID Aspen CULLEN WHEPATIC FUNCTION [id number] 09:02:00 Test Item Value Reference Range Interpretation [...] Specimen moderately (test code = 347) hemolyzed Dopster LISA CULLEN WLACTIC ACID, [id number] 08:57:00 Test Item Value Reference Range Interpretation Comments LACTATE BLOOD VENOUS 1.83 mmol/L 0.50-2.20 Specime n markedly (2) (BEAKER) (test hemolyzed code = 2872) Dopster ID - ALYSE BUSTOS, CHEST, 1 VIEW, NON [id number] 08:20:00Reason for exam:->pulmonary edemaShould this be performed [...] MDReport Verified Date/Time: 11/03/2019 08:20:32 Reading Location: [address] Neuro Reading Room CBC (HEMOGRAM ONLY)2019-11-03 [...] (BEAKER) (test code = 413) BLOOD GAS, [id number] 03:15:00 Test Item Value Reference Range Interpretation [...] (test code = 1819) 32.0 % Troponin [id number] 02:16:00 Test Item Value Reference Range Interpretation Comments Troponin I (test code = 0.58 ng/mL 0-0.03 92109-2) FAIZA (test code = FAIZA) Troponin I [...] L Lab Interpretation (test Abnormal code = 93256-8) [facility] HospitalTROPONIN [id number] 02:16:00 Test Item Value Reference Range Interpretation [...] failure, acidosis, acute neurological disease, and persistent tachyarrhythmia.Dopster ID - PIAYA LRespiratory Panel [id number] 01:12:00 Test Item Value Reference Range Interpretation Comments Human Metapneumovirus Not detected Not detected, (test code = 69101-0) Equivocal Rhinovirus (test code = Not detected Not detected, 29960-3) Equivocal INFLUENZA A (NO Not detected Not detected, SUBTYPE) (test code = Equivocal 66418-3) Influenza A subtype H1 (test code = 78674-1) Influenza A Subtype H3 (test code = 97682-5) Influenza A Subtype H1-2009 (test code = 63255-4) Influenza B (test code Not detected Not detected, = 61983-2) Equivocal Respiratory Syncytial Not detected Not detected, Virus (test code = Equivocal 45460-4) Parainfluenza Virus 1 Not detected Not detected, (test code = 81857-1) Equivocal Parainfluenza Virus 2 Not detected Not detected, (test code = 14832-2) Equivocal Parainfluenza virus 3 Not detected Not detected, (test code = 37847-7) Equivocal Parainfluenza Virus 4 Not detected Not detected, (test code = 76181-7) Equivocal Adenovirus (test code = Not detected Not detected, 82375-1) Equivocal Coronavirus 229E (test Not detected Not detected, code = 95256-6) Equivocal Coronavirus HKU1 (test Not detected Not detected, code = 25886-3) Equivocal Coronavirus NL63 (test Not detected Not detected, code = 00369-3) Equivocal Coronavirus OC43 (test Not detected Not detected, code = 45088-7) Equivocal Bordetella Pertussis Not detected Not detected, (test code = 95037-9) Equivocal Chlamydophila Not detected Not detected, Pneumoniae (test code = Equivocal 34639-9) Mycoplasma Pneumoniae Not detected Not detected, (test code = 34980-5) Equivocal FAIZA (test code = FAIZA) Other viruses and bacteria not targeted by this PCR panel cannot be excluded; therefore clinical correlation and follow up of serology, culture results, and other molecular studies is required. The results are not intended to be used as the sole means for clinical diagnosis or patient management decisions. This sample was tested at the [facility] using the iHealthNetworksArray Respiratory Panel. It is FDA cleared and has been verified and approved by the [facility] for clinical use on nasopharyngeal swab specimens. The performance of the FilmArray RP has not been established in individuals who received influenza vaccine. Recent administration of a nasal influenza vaccine may cause false positive results for Influenza A and/orInfluenza B. [facility] HospitalRESPIRATORY PANEL [id number] 01:12:00 Test Item Value Reference Range Interpretation [...] sample was tested at the [facility] using the iHealthNetworksArray Respiratory Panel. It is FDA cleared and has been verified and approved by the [facility] for clinical use on nasopharyngeal swab specimens.The performance of the FilmArrayRP has not been established in individuals who received influenza vaccine. Recent administration ofa nasal influenza vaccine may cause false positive results for Influenza A and/orInfluenza B.TROPONIN [id number] 00:57:00 Test Item Value Reference Range Interpretation Comments TROPONIN I (FOSTER) (test code = 0.56 ng/mL 0.00-0.03 [facility]) Troponin I (TnI) levels must be interpreted [...] failure, acidosis, acute neurological disease, and persistent tachyarrhythmia.Dopster ID - PIAYA LECG/EKG [id number] 23:37:13 Test Item Value Reference Range Interpretation [...] criteria. Lab Interpretation (test Abnormal code = 12666-9) [facility] HospitalCRITICAL [id number] 23:37:13Ciara Posadas MD 11/03/2019 12:52 AMCritical CarePerformed [...] this patient from another provider of my specialty.[facility] HospitalBLOOD GAS, [id number] 21:28:00 Test Item Value Reference Range Interpretation [...] 1819) 40.0 % URINALYSIS W/ REFLEX URINE [id number] 21:12:00 Test Item Value Reference Range Interpretation [...] /LPF 514) SOURCE(BEAKER) (test code = 2795) Dopster ID - [auto]Dopster ID - GauravRS-COV2/RT-PCR ([facility]) 2019-11-02 21:08:00 Test Item Value Reference Range Interpretation Comments SARS-COV2/RT-PCR (test Not Detected Not Detected, Negative code = 7945497) SARS-COV-[address] [facility] (test code = 6241999) Negative results do not preclude SARS-CoV-2 infection [...] of the Act.Fact Sheet for Healthcare Pro viders:https://www.[employer]/Documents/Xpert%20Xpress%20SARS%20CoV-2/Fact%20Sh eets/302-3802%88DOXD-RNT-5%20HEALTHCARE%20PROVIDERS%20FACT%20SHEET.pdfFact Sheet for Healthcare Patients:https://www.[employer]/Documents/Xpert%20Xpress%20SARS%20CoV-2/Fact%20Sheets/302-3801%20SARS-COV -2%20PATIENT%20FACT%20SHEET.pdfPerforming Laboratory:[place] [address], [place] [address]NFFYNBPO [id number] 20:37:00 Test Item Value Reference Range Interpretation [...] failure, acidosis, acute neurological disease, and persistent tachyarrhythmia.Dopster ID - BSManual Differential 2019-11-02 20:33:00 Test [...] Poikilocytes (test code = 2+ moderate 966) [place] Cells (test code = 1+ few 474) Platelet Conc (test code Adequate = 3438) FAIZA (test code = FAIZA) Dopster ID - Judy Pereyra comments: Slide comments: Lab Interpretation (test Abnormal code = 54878-7) [facility](CELLAVISION MANUAL DIFF)2019-11-02 20:33:00 Test Item Value [...] (BEAKER) (test code 2+ moderate = 966) FINA CELLS (BEAKER) (test code = 1+ few 474) PLATELET CONCENTRATION Adequate (CELLAVISION)(BEAKER) (test code = 3438) Dopster ID - Judy Pereyra comments: Slide comments:B-type Natriuretic Factor (BNP)2019-11-02 20:28:00 Test Item Value Reference Range Interpretation Comments BNP (test code = 83211-5) 1394 pg/mL 0-100 H FAIZA (test code = FAIZA) Dopster ID - DB Lab Interpretation (test Abnormal code = 04519-4) [facility] HospitalB-TYPE NATRIURETIC FACTOR (BNP)2019-11-02 20:28:00 Test Item Value Reference Range Interpretation Comments B-TYPE NATRIURETIC PEPTIDE 1394 pg/mL 0-100 H (BEAKER) (test code = 700) Dopster ID - DBHEPATIC FUNCTION [id number] 20:25:00 Test Item Value Reference Range Interpretation [...] (test code = 29 U/L 6-55 347) Dopster ID - BSBASIC METABOLIC [id number] 20:25:00 Test Item Value Reference Range Interpretation [...] S NOT APPLICABLE FOR DIALYSIS PATIEN TS. Dopster ID - [id number] 20:24:00 Test Item Value Reference Range Interpretation Comments PARTIAL THROMBOPLASTIN TIME 35.2 seconds 22.5-36.0 (BEAKER) (test code = 760) 6 hours after starting heparin infusion and as indicated per sliding scale PT/[id number] 20:24:00 Test Item Value Reference Range Interpretation [...] heart valves.Prior to initiating heparinPrior to initiating [id number] 20:24:00 Test Item Value Reference Range Interpretation Comments PARTIAL THROMBOPLASTIN TIME 33.6 seconds 22.5-36.0 (BEAKER) (test code = 760) LACTIC ACID, [id number] 20:20:00 Test Item Value Reference Range Interpretation Comments LACTATE BLOOD VENOUS 2.26 mmol/L 0.50-2.20 H Specime n slightly (2) (BEAKER) (test hemolyzed code = 2872) Dopster ID - BSRAD, CHEST, 1 VIEW, NON [id number] 20:14:00Reason for exam:- >SHORTNESS OF BREATHReason for [...] 11/02/2019 20:14:40 CBC W/PLT COUNT & AUTO [id number] 20:08:00 Test Item Value Reference Range Interpretation [...]
--- NOTE | 2020-02-10 04:50 | ER ---
Nurse's Notes [facility] Name: Chase Parker Age: 89 yrs Sex: Male : 1930 Arrival Date: 02/10/2020 Time: 02:24 Bed 8 Private MD: Diagnosis: Cerebral contusion;Traumatic cerbral hemorrhage Presentation: 02/09 02:26 Chief complaint: EMS states: Pt coming from [facility]. Facility staff ea reports pt fell around 0135. It was an unwitnessed fall. Pt in C collar and back board per EMS. Pt complaining of nic ankle pain, left shoulder pain and nic lower back pain. Care prior to arrival: None. Mechanism of Injury: Fall out of bed. Trauma event details: Injury occurred in the [facility], Injury occurred: [facility]. 02:26 Acuity: ISSA 3 ea 02:26 Method Of Arrival: EMS: [facility] ea 02:31 Coronavirus screen: At this time, the client does not indicate any symptoms associated ea with coronavirus-19. Ebola Screen: No symptoms or risks identified at this time. Initial Sepsis Screen: Does the patient meet any 2 criteria? No. Patient's initial sepsis screen is negative. Does the patient have a suspected source of infection? No. Patient's initial sepsis screen is negative. Risk Assessment: Do you want to hurt yourself or someone else? Patient reports no desire to harm self or others. Onset of symptoms was February 10, 2020. 02:57 Acuity: ISSA 2 lp1 Trauma Activation: Alert Physician: ED Physician; Name: ; Notified At: ; Arrived At: Physician: General Surgeon; Name: ; Notified At: ; Arrived At: Physician: Radiology; Name: ; Notified At: ; Arrived At: Physician: Respiratory; Name: ; Notified At: ; Arrived At: Physician: Lab; Name: ; Notified At: ; Arrived At: Historical: - Allergies: 02:36 No Known Allergies; ea - Home Meds: 02:36 potassium chloride 20 mEq/15 mL Oral liqd 15 mL 2 times per day [Active]; zinc 50 mg ea oral tab [Active]; nystatin 100,000 unit/gram Topical powd [Active]; Lasix 20 mg Oral tab 1 tab once daily [Active]; Lovenox 40 mg/0.4 mL Sub-Q syrg [Active]; Plavix 75 mg Oral tab 1 tab once daily [Active]; - Immunization history: Last tetanus immunization: - up to date. - Social history:: Smoking status: unknown. Screenin:30 Abuse screen: Denies threats or abuse. Nutritional screening: No deficits noted. ea Tuberculosis screening: No symptoms or risk factors identified. Fall Risk Fall in past 12 months (25 points). Primary Survey: 02:36 NO uncontrolled hemorrhage observed. A: The patient is alert. Airway: patent. ea Breathing/Chest: Respiratory pattern: regular, Respiratory effort: spontaneous, unlabored. Circulation: Skin color: pink, Skin temperature: warm. Disability Alert. Exposure/Environment: Obvious injury(ies) are noted at this time: skin tear to left elbow, pt complaining of pain to nic ankles, lower back and left shoulder. Swelling noted to left knee. 03:38 Reassessment Breathing/Chest Respiratory pattern Regular Respiratory effort Spontaneous ea Unlabored. Assessment: 02:38 General: Appears uncomfortable, Behavior is cooperative. Pain: Complains of pain in low ea back area, anterior aspect of left shoulder, right leg and left leg. Respiratory: Airway is patent Respiratory effort is even, unlabored, Respiratory pattern is regular, symmetrical. 03:30 Reassessment: Patient and/or family updated on plan of care and expected duration. Pain ea level reassessed. Pt alert oriented to self. Respirations even and unlabored. Chest expansions even and symmetrical. 04:10 Reassessment: Report called to Farzana OROZCO at [facility]. ea 04:12 Reassessment: Patient and/or family updated on plan of care and expected duration. Pain ea level reassessed. Pt alert and oriented to self. Respirations even and unlabored. Chest expansions even and symmetrical. Kailyn notified of transfer to [facility]. 05:11 Reassessment: Patient and/or family updated on plan of care and expected duration. Pain ea level reassessed. Pt resting with eyes closed, respirations even and unlabored. Chest expansions even and symmetrical. Awaiting on transportation. 05:24 Reassessment: report given to [facility], patient in good condition, Alert and mg2 oriented , IV intact, conversant and dressing applied to the left forearm. 05:25 Reassessment: Patient and/or family updated on plan of care and expected duration. Pain ea level reassessed. Pt alert and oriented to self only. Respirations even and unlabored. Chest expansions even and symmetrical. Pt left ED via stretcher per EMS. Pt tolerating well. Vital Signs: 02:31 BP 118 / 54; Pulse 68; Resp 18; Temp 98.5; Pulse Ox 99% ; ea 03:52 Weight 63.5 kg; lp1 04:09 BP 117 / 58; ea 04:22 BP 144 / 74; Pulse 68; Resp 18; Pulse Ox 100% on R/A; mg2 05:13 BP 102 / 53; Pulse 60; Resp 18; Temp 98.2; Pulse Ox 97% on R/A; ea Karishma Coma Score: 02:31 Eye Response: spontaneous(4). Verbal Response: confused(4). Motor Response: obeys ea commands(6). Total: 14. 04:22 Eye Response: spontaneous(4). Verbal Response: oriented(5). Motor Response: obeys mg2 commands(6). Total: 15. 05:13 Eye Response: spontaneous(4). Verbal Response: confused(4). Motor Response: obeys ea commands(6). Total: 14. Trauma Score (Adult): 02:31 Eye Response: spontaneous(1); Verbal Response: confused(1); Motor Response: obeys ea commands(2); Systolic BP: > 89 mm Hg(4); Respiratory Rate: 10 to 29 per min(4); [place] Score: 14; Trauma Score: 12 04:22 Eye Response: spontaneous(1); Verbal Response: confused(1); Motor Response: obeys ea commands(2); Systolic BP: > 89 mm Hg(4); Respiratory Rate: 10 to 29 per min(4); Karish[place] Score: 14; Trauma Score: 12 ED Course: 02:24 Patient arrived in ED. ea 02:26 Dez Delcid MD is Attending Physician. tw4 02:30 Triage completed. ea 02:31 Patient maintains SpO2 saturation greater than 95% on room air. ea 02:31 Patient has correct armband on for positive identification. Placed in gown. Bed in low ea position. Side rails up X2. Pulse ox on. NIBP on. 02:32 Inserted saline lock: 18 gauge in right antecubital area, using aseptic technique. mg2 Blood collected. 02:32 Thermoregulation: warm blanket given to patient. ea 02:38 Arm band placed on right wrist. Patient placed in an exam room, on a stretcher, on ea pulse oximetry. 02:39 Anastasiia Quiroga, RN is Primary Nurse. ea 03:07 Head C Spine Cap Wo Con In Process Unspecified. EDMS 03:39 Knee Right 2 View XRAY In Process Unspecified. EDMS 03:39 Elbow Left 2 View XRAY In Process Unspecified. EDMS 03:39 Pelvis XRAY In Process Unspecified. EDMS 03:50 initiated transfer to [facility] spoke with Delores Mata. ar5 03:[address] physician [address] Nellie Haji. ar5 04:00 Acceptance given by Delores Mata RN. Accepting physician Dr. Nellie Soto Emergency. ar5 Pt. Going to [facility] ER. Call report to [phone]. 04:14 No provider procedures requiring assistance completed. Patient transferred, IV remains ea in place. 04:15 Called [facility] to transfer pt. to [facility]. EMS will be here in 45-55 ar5 minutes. Administered Medications: No medications were administered Intake: 04:15 PO: 0ml; Total: 0ml. ea Outcome: 04:14 Condition: stable ea 04:14 Instructed on the need for transfer. 04:32 Patient's length of stay was not longer than 2 hours. mg2 04:49 ER care complete, transfer ordered by . tw4 05:23 Transferred by ground EMS to [facility], Transfer form completed. mg2 05:23 Condition: stable 05:23 Instructed on the need for transfer, Demonstrated understanding of instructions. 05:29 Patient left the ED. ea Signatures: Dispatcher [employer] EDMS Viviane Candelario RN RN lp1 Anastasiia Quiroga, RN RN Dez Jay MD MD tw4 Gato Mckeon RN RN mg2 Lissa Condon ar5 Corrections: (The following items were deleted from the chart) 04:35 04:32 Discharged to home ambulatory, with family, mg2 mg2 05:04 05:02 initiated transfer to [facility] spoke with Delores Mata. ar5 ar5 05:13 02:31 GCS: 15, ea ea 05:13 02:31 [place] Score=15, Trauma Score=12, ea ea 05:13 04:22 [place] Score=15, Trauma Score=12, mg2 ea 05:18 05:16 Acceptance given by Delores Mata RN. Accepting physician Dr. Nellie sandoval5 Emergency. Pt. Going to [facility] ER. Call report to anuradha
--- NOTE | 2020-02-10 04:50 | EDPHYS ---
Physician Documentation [facility] Name: Chase Parker Age: 89 yrs Sex: Male : 1930 Arrival Date: 02/10/2020 Time: 02:24 Bed 8 Private MD: ED Physician Dez Delcid HPI: 02/09 03:58 This 89 yrs old Male presents to ER via EMS with complaints of Fall Injury. tw4 Historical: - Allergies: 02:36 No Known Allergies; ea - Home Meds: 02:36 potassium chloride 20 mEq/15 mL Oral liqd 15 mL 2 times per day [Active]; zinc 50 mg ea oral tab [Active]; nystatin 100,000 unit/gram Topical powd [Active]; Lasix 20 mg Oral tab 1 tab once daily [Active]; Lovenox 40 mg/0.4 mL Sub-Q syrg [Active]; Plavix 75 mg Oral tab 1 tab once daily [Active]; - Immunization history: Last tetanus immunization: - up to date. - Social history:: Smoking status: unknown. ROS: 04:50 Constitutional: Negative for fever, chills, and weight loss, Eyes: Negative for injury, tw4 pain, redness, and discharge, Cardiovascular: Negative for chest pain, palpitations, and edema, Respiratory: Negative for shortness of breath, cough, wheezing, and pleuritic chest pain, Abdomen/GI: Negative for abdominal pain, nausea, vomiting, diarrhea, and constipation, Skin: Negative for injury, rash, and discoloration, Neuro: Negative for headache, weakness, numbness, tingling, and seizure. 04:50 MS/extremity: Positive for injury or acute deformity, contusion, decreased range of motion, of the right elbow. Exam: 04:50 Cardiovascular: Regular rate and rhythm with a normal S1 and S2. No gallops, murmurs, tw4 or rubs. Normal PMI, no JVD. No pulse deficits. Respiratory: Lungs have equal breath sounds bilaterally, clear to auscultation and percussion. No rales, rhonchi or wheezes noted. No increased work of breathing, no retractions or nasal flaring. Abdomen/GI: Soft, non-tender, with normal bowel sounds. No distension or tympany. No guarding or rebound. No evidence of tenderness throughout. Back: No spinal tenderness. No costovertebral tenderness. Full range of motion. MS/ Extremity: Pulses equal, no cyanosis. Neurovascular intact. Full, normal range of motion. Neuro: Awake and alert, GCS 15, oriented to person, place, time, and situation. Cranial nerves II-XII grossly intact. Motor strength 5/5 in all extremities. Sensory grossly intact. Cerebellar exam normal. Normal gait. 04:50 Head/face: Noted is contusion, of the left voodoo. Vital Signs: 02:31 BP 118 / 54; Pulse 68; Resp 18; Temp 98.5; Pulse Ox 99% ; ea 03:52 Weight 63.5 kg; lp1 04:09 BP 117 / 58; ea 04:22 BP 144 / 74; Pulse 68; Resp 18; Pulse Ox 100% on R/A; mg2 05:13 BP 102 / 53; Pulse 60; Resp 18; Temp 98.2; Pulse Ox 97% on R/A; ea Karishma Coma Score: 02:31 Eye Response: spontaneous(4). Verbal Response: confused(4). Motor Response: obeys ea commands(6). Total: 14. 04:22 Eye Response: spontaneous(4). Verbal Response: oriented(5). Motor Response: obeys mg2 commands(6). Total: 15. 05:13 Eye Response: spontaneous(4). Verbal Response: confused(4). Motor Response: obeys ea commands(6). Total: 14. Trauma Score (Adult): 02:31 Eye Response: spontaneous(1); Verbal Response: confused(1); Motor Response: obeys ea commands(2); Systolic BP: > 89 mm Hg(4); Respiratory Rate: 10 to 29 per min(4); [place] Score: 14; Trauma Score: 12 04:22 Eye Response: spontaneous(1); Verbal Response: confused(1); Motor Response: obeys ea commands(2); Systolic BP: > 89 mm Hg(4); Respiratory Rate: 10 to 29 per min(4); [place] Score: 14; Trauma Score: 12 MDM: 02:26 Patient medically screened. tw4 04:50 Differential diagnosis: abrasion, closed head injury, multiple trauma, sprain. Data tw4 reviewed: vital signs, nurses notes. Data interpreted: Pulse oximetry: Interpretation: normal. Test interpretation: by ED physician or midlevel provider: ECG. Counseling: I had a detailed discussion with the patient and/or guardian regarding: the historical points, exam findings, and any diagnostic results supporting the discharge/admit diagnosis, radiology results. Awaiting: transfer to another facility. Special discussion:. 02/09 02:42 Order name: Glucose, Ancillary Testing; Complete Time: 02:49 EDOK 02/09 02:29 Order name: Knee Right 2 View XRAY tw4 02/09 02:29 Order name: Elbow Left 2 View XRAY tw4 02/09 02:30 Order name: Pelvis XRAY tw4 02/09 02:34 Order name: Head C Spine Cap Wo Con EDMS Administered Medications: No medications were administered Disposition: 02/10/20 04:49 Transfer ordered to [facility]. Diagnosis are Cerebral contusion, Traumatic cerbral hemorrhage. - Reason for transfer: Higher level of care. - Accepting physician is Dr Escamilla. - Condition is Stable. - Problem is new. - Symptoms have improved. Signatures: Dispatcher [employer] EDAnastasiia Eldridge, RN Dez Etseban ea, MD MD tw4 Corrections: (The following items were deleted from the chart) 02:34 02:30 Head C Spine MPR Wo Con+CT.RAD.BRZ ordered. EDOK EDMS 03:06 02:30 Thorax Wo Con+CT.RAD.BRZ ordered. EDOK EDMS 03:06 02:30 Abdomen Pelvis Wo Con+CT.RAD.BRZ ordered. [facility] EDMS 05:29 04:49 02/10/2020 04:49 Transfer ordered to [facility]. Diagnosis is ea Cerebral contusion; Traumatic cerbral hemorrhage. Reason for transfer: Higher level of care. Accepting physician is Dr Escamilla. Condition is Stable. Problem is new. Symptoms have improved. tw4
--- NOTE | 2020-02-10 12:53 | RAD REPORT ---
EXAM DESCRIPTION: RAD - Knee Right 2 View - 02/10/2020 3:39 am CLINICAL HISTORY: Right knee pain FINDINGS: A limited two view series obtained The bones are osteoporotic Small to moderate joint effusion Chondrocalcinosis No fracture or dislocation is seen. The patient continues to have symptoms to suggest an occult fract ure, ligamentous or meniscal injury then MRI would be recommended
--- NOTE | 2020-02-10 13:07 | RAD REPORT ---
EXAM DESCRIPTION: RAD - Pelvis - 02/10/2020 3:39 am CLINICAL HISTORY: Pelvic pain status post injury FINDINGS: No fracture or dislocation is seen. Osteoporosis
--- NOTE | 2020-02-10 13:09 | RAD REPORT ---
EXAM DESCRIPTION: RAD - Elbow Left 2 View - 02/10/2020 3:39 am CLINICAL HISTORY: Left elbow pain status fall. FINDINGS: Osteoporosis. Laceration soft tissues. Limited two view series obtained. Lateral view is suboptimal as the patient as the the elbow is some what oblique No fracture or dislocation. If patient continues have symptoms to suggest an occult fracture then a complete three-view series wo uld be recommended
[2020-02-11 11:56] VITALS: BP 102/53; TEMP 98.2; O2SAT 97
--- NOTE | 2020-02-11 12:26 | RAD REPORT ---
EXAM DESCRIPTION: CT - Head C Spine Cap Wo Con - 02/10/2020 6:16 am Head C Spine Cap Wo Con CLINICAL HISTORY: Fall trauma COMPARISON: None available TECHNIQUE: Axial CT of the head obtained from the skull apex to the skull base without contrast. Axi al CT images of the cervical spine obtained from the skull base to the thoracic inlet. Axial CT image s of the chest, abdomen, and pelvis obtained from the thoracic inlet through the pubic symphysis. Cor onal and sagittal reformatted images available. Suboptimal evaluation of solid organs, vasculature, s oft tissues due to lack of IV contrast. FINDINGS: There is a well-circumscribed focus of hyperdensity in the left temporal lobe measuring 0. 5 cm. No significant edema or mass effect. No midline shift. No additional extra-axial fluid collecti on. The ventricular system and sulcal spaces are mildly enlarged compatible with mild cerebral atroph y. Scattered areas of hypodensity throughout the supratentorial white matter are nonspecific and ma y be related to chronic small vessel ischemic change. Focal region of encephalomalacia in the right p arietal lobe likely represents a remote infarction. The visualized paranasal sinuses and the mastoids are clear. No skull fracture identified. Visuali zed orbits and globes are unremarkable. Atherosclerotic calcification of the intracranial internal ca rotid arteries. CT of the cervical spine without contrast. Alignment of the cervical spine is maintained without evidence of subluxation. The atlantoaxial, at lantodental, and occipitoatlantal intervals are preserved. No fracture identified. Vertebral body h eight preserved. Prevertebral soft tissues are unremarkable. Mild to moderate multilevel loss of vertebral disc height with endplate spondylosis, facet arthropath y, and uncovertebral spurring. Visualized skull base is intact. No fracture of the visualized facial bones. Visualized mastoid air cells and paranasal sinuses are well aerated. Visualized thyroid is unremarkable. No cervical lymphadenopathy. No pneumothorax in the visualized lung apices. Carotid artery atherosclerosis. Chest: Thyroid: No abnormalities of the visualized thyroid. Great Vessels: Great vessels have normal anatomic configuration. Thoracic Aorta: Atherosclerotic calcification of the thoracic. Pulmonary arteries: The main pulmonary artery is not dilated. Heart: Coronary artery atherosclerosis. Aortic valve repair. Small pericardial effusion. No cardiomeg lesley. Lymph Nodes: No enlarged mediastinal lymph nodes identified. Esophagus: No abnormalities of the esophagus identified Other: No additional findings. Lungs: There is a 6.8 x 5.0 cm cavitary lesion in the right lower lobe with surrounding consolidation . Calcified left lower lobe granuloma. Biapical interstitial scarring and traction bronchiectasis. Pleura: Large right and moderate left pleural effusion. No pneumothorax. Trachea/Airways: No abnormalities of the visualized trachea or airways. Abdomen: Liver: The liver has normal size and density. Gallbladder: Calcified gallstones. Spleen, Pancreas, and Adrenal Glands: The spleen, pancreas, and adrenal glands are unremarkable. Kidneys: No hydronephrosis or obstructing ureteral calculus. 1.5 cm exophytic calcified structure arising from the superior pole of the right kidney is indeterminate. Vasculature: Aortoiliac atherosclerosis. IVC is normal caliber. Stomach: The stomach and duodenum have normal course. Other: No free intraperitoneal air. No free fluid or lymphadenopathy. Minimal subcutaneous air in the anterior abdominal wall may be related to injection sites. Pelvis: Bladder: Urinary bladder is unremarkable. Bowel: No dilated loops of large or small bowel. Large amount of stool in the rectum. Appendix: Normal appendix. Pelvis: Prostate is not enlarged. Bones: Multilevel degenerative endplate spondylosis and facet arthropathy of the thoracic and lumbar spine. Degenerative anterolisthesis of L4 over L5. Mild bilateral hip joint space narrowing and anil nal osteophytosis. Bilateral glenohumeral joint space narrowing. Spurring of the acromioclavicular birgit ints. IMPRESSION: 1. There is a 0.5 cm hyperdense focus in the anterior left temporal lobe without mass ef fect. This may represent a small focus of acute hemorrhagic contusion. Differential considerations in clude a small cavernous malformation. MRI and/or correlation with outside days may provide additional characterization. 2. Multilevel degenerative change of the cervical spine. 3. There is a 6.8 cm cavitary lesion thick-walled and adjacent consolidation in the right lower lobe. Differential considerations include infectious etiology such as abscess and cavitary neoplasm. 4. Large right and moderate left pleural effusions. 5. Coronary artery atherosclerosis 6. Cholelithiasis. 7. Indeterminate 1.5 cm exophytic structure arising from the superior pole of the right kidney with c oarse calcification. Follow-up imaging with multiphase abdominal CT or MRI recommended. 8. Large amount of stool in the rectum. THIS REPORT CONTAINS FINDINGS THAT MAY BE CRITICAL TO PATIENT CARE: The findings were verbally discu ssed via telephone conference with Dr. Delcid by Dr. Danial Schwarz on 02/10/2020 3:42 AM CDT. The results were acknowledged and understood. This exam was performed according to our departmental dose-optimization program, which includes autom ated exposure control, adjustment of the mA and/or kV according to patient size and/or use of iterati ve reconstruction technique. Electronically signed by: Danial Schwarz 02/10/2020 3:50 AM CDT Due to temporary technical issues with the PACS/Fluency reporting system, reports are being signed by the in house radiologist without review as a courtesy to ensure prompt reporting. The interpreting r adiologist is fully responsible for the content of the report.
== END 2020-02-10 05:29 | disposition short-term general hospital (02) ==
LOC: ER 02:21
DX: S06.360A Traumatic hemorrhage of cerebrum, unspecified, without loss of consciousness, initial encounter (principal); S06.330A Contusion and laceration of cerebrum, unspecified, without loss of consciousness, initial encounter; M25.512 Pain in left shoulder; M25.521 Pain in right elbow; W06.XXXA Fall from bed, initial encounter; Y93.9 Activity, unspecified; Y92.129 Unspecified place in nursing home as the place of occurrence of the external cause; Z79.01 Long term (current) use of anticoagulants
CPT/HCPCS: 70450; 71250; 72125; 72170; 82947; 99285